=== PATIENT | female | born 1980 | race Caucasian/White ===

== ENCOUNTER 2017-05-24 14:21 | Emergency (ER) | payer MEDICARE, MEDICAID, SELFPAY ==
[2017-05-24 14:22] VITALS: BP 149/80; PULSE 91; RESP 16; TEMP 36.5; O2SAT 96; BMI 41.3
[2017-05-24 15:30] LABS: Absolute Lymphocyte Count 2.74 X10^3/ul (0.83-4.51); Absolute Neutrophil Count 6.6 X10^3/uL (2.0-7.7); Basophil# 0.01 X10^3/uL; Basophil% 0.1 % (0-1); Hemoglobin 14.6 g/dl (12.0-15.0); Lymphocyte # 2.74 X10^3/ul (4.0); Lymphocyte % 26.7 % (19-41); Mean Corp Hgb Conc 33.2 g/gl (32-36); Mean Corpuscular Hgb 29.9 pg (27.0-32.0); Mean Platelet Vol. 11.1 fl (6.2-12.0); Monocyte# 0.91 X10^3/uL; Monocyte% 8.9 % (0-10); Neutrophil % 64.2 % (47-70); POSITIVE COUNT NO; POSITIVE DIFFERENTIAL NO; POSITIVE MORPHOLOGY NO; Platelet Count 273 K/mm3 (150-450); RBC Distribution Width CV 13.5 % (11.6-14.6); RBC Distribution Width SD 43.9 fl (35.1-43.9); Red Blood Count 4.89 M/mm3 (4.2-5.4); White Blood Count 10.3 K/mm3 (4.4-11.0)
--- NOTE | 2017-05-24 15:32 | ED.VISSUMM ---
- ER Visit Summary Date of Service: 05/24/17 Chief Complaint: Mental health evaluation History of Present Illness: The patient is a 36 F presenting with depression and delusions. She states that she has been feeling depressed lately and also states that she may be with a miracle child. She then proceeds to tell me that her miracle child is a child of God and that she has been part of an immaculate conception. She denies suicidal thoughts or ideation. Denies drug use. Physical Examination: Vitals are within normal limits. Not in distress. Neck is supple. Heart tones are regular without murmur. Eyes are clear bilaterally. Abdomen is soft and nontender. No focal or lateralizing neuro findings. Neurologic exam is normal however on mental status examination, she appears to have no insight into her problem and has a fairly fixed delusion that she has been part of an immaculate conception and is near term with a miracle child. Test Results: Mental health labs are still pending Emergency Department Course and Treatment: Care is being turned over to the oncoming physician Treatment Plan: [] Disposition: [] Impression: [] This note was generated with Yogurt3D Engine dictation software. It may contain incorrect words, spelling, and punctuation that were not noted in review of the chart prior to signing ED Disposition - Plan for ED Patient: Chief Complaint: Mental Health Referrals: Kenneth Tan MD [Primary Care Provider] -
[2017-05-24 15:50] LABS: Anion Gap 11 (5-15); BUN 9 mg/dL (7-18); BUN/Creat Ratio 8.7 RATIO (10-20); Calcium,Total 8.5 mg/dL (8.5-10.1); Chloride 113 mmol/L (98-107); Creatinine, Serum 1.03 mg/dL (0.55-1.02); EST Glomerular Filtration Rate 65 mL/min (>60); Est Glom Filt Rate - Afr Amer 79 mL/min (>60); Estimated Creatinine Clearance 72.05 ml/min; Glucose 95 mg/dL (74-106); Potassium 3.3 mmol/L (3.5-5.1); Sodium Level 143 mmol/L (136-145)
[2017-05-24 16:20] LABS: Alcohol, Blood (Medical)-Serum < 3.0 mg/dL
[2017-05-24 16:30] LABS: Pregnancy, Serum, hCG Quali. NEGATIVE Negative (0-9 Nonpreg)
[2017-05-24 17:43] LABS: Amphetamine Urine VISTA NEGATIVE (<1000 ng/mL); Barbiturate Urine VISTA NEGATIVE (< 200 ng/mL); Benzodiazepine Urine VISTA NEGATIVE (< 200 ng/mL); Cocaine Urine VISTA NEGATIVE (< 300 ng/mL); Ecstacy Urine VISTA NEGATIVE (< 500 ng/mL); Methadone Urine VISTA NEGATIVE (< 300 ng/mL); PCP Urine VISTA NEGATIVE (< 25 ng/mL); THC Urine VISTA NEGATIVE (< 50 ng/mL); Vista UDS pH Range 7
--- NOTE | 2017-05-24 19:04 | NURSING ---
CRISELDA FROM [facility] CALLED BACK, HE IS AT [facility] AND WILL BE HERE WHEN DONE
[2017-05-24 20:02] VITALS: BP 97/56; PULSE 52; RESP 16; O2SAT 100
--- NOTE | 2017-05-24 21:13 | ED.DEP ---
ED Disposition - Plan for ED Patient: Chief Complaint: Mental Health Instructions: Understanding Delusional Disorders Referrals: Kenneth Tan MD [Primary Care Provider] -
[2017-05-24 21:26] VITALS: BP 110/64; PULSE 66; RESP 16; O2SAT 100
== END 2017-05-24 21:26 | disposition home or self-care (01) ==
PROVIDERS: Emergency Provider Emergency Medicine; Family Provider Family Medicine; PCP Family Medicine
DX: F22 Delusional disorders (principal); F29 Unspecified psychosis not due to a substance or known physiological condition; J45.909 Unspecified asthma, uncomplicated; R56.9 Unspecified convulsions; Z79.51 Long term (current) use of inhaled steroids; Z79.899 Other long term (current) drug therapy
CPT/HCPCS: 80048; 80307; 80320; 84703; 85025; 99283; G0480

== ENCOUNTER 2017-05-31 17:31 | Emergency (ER) | payer MEDICARE, MEDICAID, SELFPAY ==
[2017-05-31 17:32] VITALS: PULSE 90; RESP 16; TEMP 36.9; O2SAT 99; BMI 44.7
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
[2017-05-31 17:52] VITALS: BP 86/53
[2017-05-31 18:25] VITALS: BP 97/61
[2017-05-31 18:49] VITALS: BP 113/52; PULSE 70; RESP 16; O2SAT 100
== END 2017-05-31 18:57 | disposition home or self-care (01) ==
PROVIDERS: Emergency Provider Emergency Medicine; Family Provider Family Medicine; PCP Family Medicine
DX: G40.409 Other generalized epilepsy and epileptic syndromes, not intractable, without status epilepticus (principal); F79 Unspecified intellectual disabilities; E66.9 Obesity, unspecified; Z79.51 Long term (current) use of inhaled steroids; Z79.899 Other long term (current) drug therapy
CPT/HCPCS: 99285

== ENCOUNTER 2017-07-29 17:44 | Emergency (ER) | payer MEDICARE, MEDICAID, SELFPAY ==
[2017-07-29 17:45] VITALS: BP 119/74; PULSE 92; RESP 20; TEMP 36.6; O2SAT 99; BMI 39.8
--- NOTE | 2017-07-29 18:13 | RAD_ITS ---
STUDY: X-RAY - RIGHT TIBIA AND FIBULA REASON FOR EXAM: Female, 37 years old. Injury TECHNIQUE: 3 view(s) of the tibia and fibula were obtained. COMPARISON: None. FINDINGS: Normal visualized tibia. Normal visualized fibula. The soft tissue structures are unremarkable. RAD/Tibia & Fibula 2 Views IMPRESSION: Normal x-ray examination of the tibia and fibula. Electronically Signed: Graham Contreras DO at 20:10 EDT Tel [phone], Service support ,
[2017-07-29 19:03] LABS: Absolute Lymphocyte Count 1.16 X10^3/ul (0.83-4.51); Absolute Neutrophil Count 12.8 X10^3/uL (2.0-7.7); Hematocrit 44.6 % (37-47); Hemoglobin 14.7 g/dl (12.0-15.0); Lymphocyte # 1.16 X10^3/ul (4.0); Lymphocyte % 7.9 % (19-41); Mean Corpuscular Hgb 28.9 pg (27.0-32.0); Mean Corpuscular Volume 87.8 fL (81-99); Monocyte# 0.76 X10^3/uL; Monocyte% 5.1 % (0-10); Neutrophil # 12.82 X10^3/uL (2.7-7.7); Neutrophil % 86.9 % (47-70); POSITIVE COUNT NO; POSITIVE DIFFERENTIAL NO; POSITIVE MORPHOLOGY NO; Platelet Count 260 K/mm3 (150-450); RBC Distribution Width CV 13.2 % (11.6-14.6); RBC Distribution Width SD 42.6 fl (35.1-43.9); Red Blood Count 5.08 M/mm3 (4.2-5.4); White Blood Count 14.8 K/mm3 (4.4-11.0)
[2017-07-29 19:16] LABS: ALB/GLOB Ratio 0.9 RATIO (0.9-2.4); AST(SGOT) 8 U/L (15-37); Alanine Aminotransfer ALT/SGPT 11 U/L (13-56); Albumin, Serum 3.8 g/dL (3.2-5.0); Alkaline Phosphatase 130 U/L (45-117); Anion Gap 10 (5-15); BUN 10 mg/dL (7-18); BUN/Creat Ratio 9.2 RATIO (10-20); Calcium,Total 8.8 mg/dL (8.5-10.1); Chloride 113 mmol/L (98-107); Creatinine, Serum 1.09 mg/dL (0.55-1.02); EST Glomerular Filtration Rate 61 mL/min (>60); Est Glom Filt Rate - Afr Amer 73 mL/min (>60); Estimated Creatinine Clearance 64.82 ml/min; Globulin 4.1 g/dL (2.2-4.2); Glucose 98 mg/dL (74-106); Potassium 3.7 mmol/L (3.5-5.1); Protein, Total 7.9 g/dL (6.4-8.2); Sodium Level 142 mmol/L (136-145)
[2017-07-29] MEDS: Ketorolac 30 MG/ML Syringe IV (19:17)
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
[2017-07-29 19:22] LABS: Pregnancy, Serum, hCG Quali. NEGATIVE Negative (0-9 Nonpreg)
--- NOTE | 2017-07-29 19:25 | RAD_ITS ---
STUDY: X-RAY - RIGHT FEMUR REASON FOR STUDY: Female, 37 years old. Injury TECHNIQUE: Radiological exam, femur, minimum 2 views COMPARISON: None. FINDINGS: Normal visualized femur. Normal visualized soft tissue structure. RAD/Femur Min 2 Views IMPRESSION: Normal x-ray examination of the femur. Electronically Signed: Graham Contreras DO at 20:11 EDT Tel [phone], Service support ,
[2017-07-29 19:54] VITALS: BP 101/61; PULSE 58; RESP 18; O2SAT 100
[2017-07-29 20:04] LABS: Amphetamine Urine VISTA NEGATIVE (<1000 ng/mL); Barbiturate Urine VISTA NEGATIVE (< 200 ng/mL); Benzodiazepine Urine VISTA POSITIVE (< 200 ng/mL); Cocaine Urine VISTA NEGATIVE (< 300 ng/mL); Ecstacy Urine VISTA NEGATIVE (< 500 ng/mL); Methadone Urine VISTA NEGATIVE (< 300 ng/mL); PCP Urine VISTA NEGATIVE (< 25 ng/mL); THC Urine VISTA NEGATIVE (< 50 ng/mL); Vista UDS pH Range 6
--- NOTE | 2017-07-29 20:43 | EKG12_ITS ---
Test Reason : [facility] [place] : / mmHG Vent. Rate : 056 BPM Atrial Rate : 056 BPM P-R Int : 160 ms QRS Dur : 088 ms QT Int : 438 ms P-R-T Axes : 025 019 013 degrees QTc Int : 422 ms Sinus bradycardia Otherwise normal ECG Confirmed by ALBERT CUBA, MILLA ([id number]), primer expeditor and drier TAN CUNHA ([id number]) on 07/31/2017 11:47:53 AM Referred By: GREGORIA Confirmed By:MILLA PRICE MD
[2017-07-29 20:54] LABS: Bacteria 0 SEEN /hpf (None Seen); Mucous, Urine 0 SEEN /hpf (<or=2+); Red Blood Cells-Urine 0 SEEN /hpf (0-5)
[2017-07-29 20:59] LABS: Color, Urine Yellow (Yellow); Glucose, Dipstick Normal (Normal); Leukocyte Esterase-Dipstick 25 /ul (Negative); Nitrite-Dipstick Negative (Negative); Occult Blood-Urine Negative /ul (Negative); Protein-Dipstick 15 mg/dl (Negative); Specific Gravity, Urine 1.015 (1.002-1.030); Urine Bilirubin Dipstick Negative (Negative); Urine Clarity Sl. Cloudy (Clear); Urine Urobilinogen Normal (Normal)
[2017-07-29 21:03] LABS: Ketone-Dipstick 150 mg/dl (Negative)
[2017-07-29 21:07] LABS: Amorphous Sediment 1+; Squamous Epithelial Cells - UA 5-10 SEEN /hpf (5-10); White Blood Cells 0-5 SEEN /hpf (0-5)
--- NOTE | 2017-07-29 22:45 | NURSING ---
PT STATES SHE NEEDS TO USE THE BR AND PT DEMANDING SHE CANNOT WALK AND NEEDS A W/C. CONFIRMED NEG X-RAY FINDINGS WITH DR. KINNEY AND ENCOURAGED PT TO TAKE IT ON HER OWN TIME, SLOWLY. PT'S MOTHER AND BROTHER AT ENCOURAGING PT TO GET UP AND WALK AND PT REFUSING.
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
[2017-07-30 00:04] VITALS: BP 115/60; PULSE 78; RESP 18; O2SAT 100
== END 2017-07-30 00:05 | disposition home or self-care (01) ==
PROVIDERS: Emergency Provider Emergency Medicine; Family Provider Family Medicine; PCP Family Medicine
DX: R56.9 Unspecified convulsions (principal); M25.551 Pain in right hip; M25.561 Pain in right knee; F20.9 Schizophrenia, unspecified; Z79.899 Other long term (current) drug therapy
CPT/HCPCS: 73552; 73590; 80053; 80307; 80320; 81001; 84703; 85025; 93005; 96374; 99285; G0480

== ENCOUNTER 2017-08-10 18:58 | Emergency (ER) | payer MEDICARE, MEDICAID, SELFPAY ==
[2017-08-10 18:59] VITALS: BP 140/107; PULSE 92; RESP 24; TEMP 36.2; O2SAT 97; BMI 44.3
[2017-08-10 19:51] LABS: Absolute Lymphocyte Count 2.91 X10^3/ul (0.83-4.51); Absolute Neutrophil Count 5.7 X10^3/uL (2.0-7.7); Hematocrit 45.5 % (37-47); Hemoglobin 14.6 g/dl (12.0-15.0); Lymphocyte # 2.91 X10^3/ul (4.0); Mean Corp Hgb Conc 32.1 g/gl (32-36); Mean Corpuscular Hgb 28.9 pg (27.0-32.0); Mean Corpuscular Volume 90.1 fL (81-99); Mean Platelet Vol. 11.6 fl (6.2-12.0); Monocyte# 0.79 X10^3/uL; Monocyte% 8.4 % (0-10); Neutrophil # 5.68 X10^3/uL (2.7-7.7); Neutrophil % 60.5 % (47-70); Platelet Count 290 K/mm3 (150-450); RBC Distribution Width CV 13.8 % (11.6-14.6); Red Blood Count 5.05 M/mm3 (4.2-5.4); White Blood Count 9.4 K/mm3 (4.4-11.0)
[2017-08-10 19:59] LABS: Anion Gap 9 (5-15); BUN 8 mg/dL (7-18); BUN/Creat Ratio 6.3 RATIO (10-20); Calcium,Total 9.1 mg/dL (8.5-10.1); Chloride 110 mmol/L (98-107); Creatinine, Serum 1.26 mg/dL (0.55-1.02); EST Glomerular Filtration Rate 51 mL/min (>60); Est Glom Filt Rate - Afr Amer 62 mL/min (>60); Estimated Creatinine Clearance 49.29 ml/min; Glucose 68 mg/dL (74-106); Potassium 3.2 mmol/L (3.5-5.1); Sodium Level 140 mmol/L (136-145)
[2017-08-10] MEDS: Zonisamide 50 MG Capsule 400 MG PO (20:01)
[2017-08-10] MEDS: LORazepam 2 MG/ML Syringe 0.5 MG IV (20:01)
[2017-08-10] MEDS: 0.9% Normal Saline 1,000 ML 15 ML IV (20:01)
[2017-08-10] MEDS: Lacosamide 100 MG Tablet 200 MG PO (20:03)
[2017-08-10] MEDS: Topiramate 200 MG Tablet PO (20:03)
[2017-08-10 20:06] LABS: POSITIVE COUNT NO; POSITIVE DIFFERENTIAL NO; POSITIVE MORPHOLOGY NO
[2017-08-10 20:24] LABS: Pregnancy, Serum, hCG Quali. NEGATIVE Negative (0-9 Nonpreg)
--- NOTE | 2017-08-10 20:44 | ED.RN ---
CHOCOLATE MILK AND COOKIES GIVEN TO INCREASE BLOOD SUGAR.
--- NOTE | 2017-08-10 20:56 | ED.VISSUMM ---
- ER Visit Summary Date of Service: 08/10/17 Chief Complaint: Seizures History of Present Illness: The patient is a 37 F with a history of seizure disorder. Per mother the patient had a small seizure today they proceeded a big seizure. Mom states that she called EMS to transport the patient. Mom states the seizure lasted until EMS arrived to the hospital which is approximately 10 minutes. EMS note was reviewed. They note that she was postictal on their arrival but had not been actively seizing. Patient is currently on Vimpat, Topamax, and Zonegran for seizures. There is been no recent change in dosing. She follows with Dr. Ribeiro in [place]. Physical Examination: Vital signs are unremarkable. Patient sitting upright in bed no acute distress. She is alert and talkative. Head and neck examination is unremarkable. She has no tongue injury. Heart is regular rate and rhythm. Lung sounds are clear. Abdomen is soft and nontender. Patient has no focal neurologic deficits. Test Results: CBC is unremarkable. Chemistry studies revealed normal sodium. Her potassium is slightly low at 3.2. Her glucose is 68. Emergency Department Course and Treatment: Patient was given chocolate milk to raise her blood sugar. On arrival to the ED she was given 0.5 mill grams of IV Ativan while workup was undertaken. She was also given her evening dose of Vimpat, Topamax, and Zonegran. Patient has been able to ambulate in the ER without difficulty. She has back to her baseline. She will be discharged with her mother. Treatment Plan: [] Disposition: Discharge Impression: Seizure with history of seizure disorder This note was generated with SharesPost dictation software. It may contain incorrect words, spelling, and punctuation that were not noted in review of the chart prior to signing ED Disposition - Plan for ED Patient: Disposition: Home or Assisted Living Chief Complaint: Seizure Instructions: ED Seizure Recurrent Referrals: Ant Ribeiro MD [STAFF PHYSICIAN] - 1-2 Weeks Kenneth Tan MD [Primary Care Provider] -
--- NOTE | 2017-08-10 20:56 | ED.DEP ---
ED Disposition - Plan for ED Patient: Disposition: Home or Assisted Living Chief Complaint: Seizure Instructions: ED Seizure Recurrent Referrals: Kenneth Tan MD [Primary Care Provider] - Ant Ribeiro MD [STAFF PHYSICIAN] - 1-2 Weeks
[2017-08-10 21:14] VITALS: BP 114/67; PULSE 70; RESP 22; O2SAT 100
== END 2017-08-10 21:16 | disposition home or self-care (01) ==
PROVIDERS: Emergency Provider Emergency Medicine; Family Provider Family Medicine; PCP Family Medicine
DX: G40.909 Epilepsy, unspecified, not intractable, without status epilepticus (principal); E66.9 Obesity, unspecified; J45.909 Unspecified asthma, uncomplicated; F79 Unspecified intellectual disabilities; Z79.51 Long term (current) use of inhaled steroids; Z79.899 Other long term (current) drug therapy
CPT/HCPCS: 80048; 84703; 85025; 96374; 99285; J7030; A4216

== ENCOUNTER 2017-09-07 21:40 | Emergency (ER) | payer MEDICARE, MEDICAID, SELFPAY ==
[2017-09-07 21:40] VITALS: BP 120/67; PULSE 83; RESP 16; TEMP 36.9; O2SAT 97; BMI 47.2
--- NOTE | 2017-09-07 21:59 | ED.DCSUM_ITS ---
- ER Visit Summary Date of Service: 09/07/17 Chief Complaint: [] Mechanical fall in the bathroom History of Present Illness: The patient is a 37 F patient had a mechanical fall. She went to sit back on her chair in the bathtub and it was too far back. She slipped and fell. She is having some discomfort in the middle of her back. Is mild. Her brother said he thinks he she may have hit his hit her head. Happened several hours ago. She did not lose consciousness. There is no luther or abrasions or hematomas. He stated he wanted to make sure she does not have a concussion. She does have a history of mild MR. She denies any complaints at this time. She is on multiple seizure medicines. She did not have seizure. Physical Examination: Vital signs reviewed General: Well-nourished well-developed Head: Normocephalic atraumatic Eyes: Pupils equal round and reactive to light extraocular movements intact ENT: TMs clear no hemotympanum no trauma Neck: Nontender full range of motion Cardiovascular: Regular rate rhythm no murmurs normal S1-S2 Respiratory: No distress clear to auscultation bilaterally chest nontender Abdomen: Soft nontender nondistended normal bowel sounds no masses Back: Nontender no CVA tenderness Extremities: Nontender active range of motion ?4 extremities no trauma Skin: Normal color no trauma Neuro alert oriented cranial nerves II through XII intact normal strength sensation reflexes Test Results: [] Emergency Department Course and Treatment: [] Patient's resting comfortably. Her head exam neck exam normal. Her back exam is normal. I do not think she has an acute fracture. I do not think she has a concussion. She is awake alert responding appropriately. Is given Tylenol. She will rest and I do not feel she needs any further workup. Treatment Plan: [] Disposition: [] Impression: [] Mechanical fall in the bathroom Back contusion This note was generated with Bluechilli dictation software. It may contain incorrect words, spelling, and punctuation that were not noted in review of the chart prior to signing ED Disposition - Plan for ED Patient: Chief Complaint: Fall Referrals: Kenneth Tan MD [Primary Care Provider] -
--- NOTE | 2017-09-07 21:59 | ED.DEP ---
ED Disposition - Plan for ED Patient: Disposition: Home or Assisted Living Chief Complaint: Fall Instructions: ED Mechanical Fall Referrals: Kenneth Tan MD [Primary Care Provider] -
[2017-09-07] MEDS: Acetaminophen 325 MG Tablet 650 MG PO (22:04)
[2017-09-07 22:22] VITALS: PULSE 72; RESP 14; O2SAT 98
== END 2017-09-07 22:22 | disposition home or self-care (01) ==
LOC: ED 22:13
PROVIDERS: Emergency Provider Emergency Medicine; Family Provider Family Medicine; PCP Family Medicine
DX: S20.229A Contusion of unspecified back wall of thorax, initial encounter (principal); R56.9 Unspecified convulsions; F79 Unspecified intellectual disabilities; Z79.899 Other long term (current) drug therapy; W18.2XXA Fall in (into) shower or empty bathtub, initial encounter; Y93.E1 Activity, personal bathing and showering; Y92.002 Bathroom of unspecified non-institutional (private) residence as the place of occurrence of the external cause; Y99.8 Other external cause status
CPT/HCPCS: 99282

== ENCOUNTER 2017-09-08 15:00 | Emergency (ER) | payer MEDICARE, MEDICAID, SELFPAY ==
[2017-09-08 15:05] VITALS: BP 132/78; PULSE 106; RESP 15; TEMP 36.4; O2SAT 98; BMI 35.7
--- NOTE | 2017-09-08 15:31 | CT_ITS ---
STUDY: CT BRAIN WITHOUT CONTRAST REASON FOR EXAM: Female, 37 years old. Confusion status post fall RADIATION DOSAGE (If Supplied By Facility): CTDIvol = ( 60.81 ) mGy, DLP = ( 998.67 ) mGycm TECHNIQUE: Transaxial CT imaging of the brain was performed without administration of intravenous contrast material. Individualized dose optimization techniques were used for this CT. COMPARISON: June 19, 2016 CT scan head FINDINGS: Normal soft tissue structures. Normal calvarium. Normal size ventricles and extra-axial spaces for the patient's age. Normal white matter tracts of the cerebral hemispheres. Normal basal ganglia and thalami.Normal brainstem. Normal cerebellum. There is no intracranial hemorrhage. There are no findings of an acute ischemic infarction. Normal visualized paranasal sinuses. CT/Brain/Head without Contrast IMPRESSION: No evidence of acute hemorrhage infarct or edema. No visualized fracture. Electronically Signed: Benita Stearns MD at 16:26 EDT Tel , Service support ,
[2017-09-08] MEDS: 0.9% Normal Saline 1,000 ML 150 ML IV (15:43)
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
[2017-09-08 16:01] LABS: Absolute Lymphocyte Count 2.23 X10^3/ul (0.83-4.51); Absolute Neutrophil Count 8.3 X10^3/uL (2.0-7.7); Basophil# 0.01 X10^3/uL; Basophil% 0.1 % (0-1); Hemoglobin 14.5 g/dl (12.0-15.0); Lymphocyte # 2.23 X10^3/ul (4.0); Lymphocyte % 19.2 % (19-41); Mean Corpuscular Hgb 29.6 pg (27.0-32.0); Mean Corpuscular Volume 89.8 fL (81-99); Mean Platelet Vol. 10.8 fl (6.2-12.0); Monocyte# 1.03 X10^3/uL; Monocyte% 8.9 % (0-10); Neutrophil # 8.33 X10^3/uL (2.7-7.7); Neutrophil % 71.5 % (47-70); Platelet Count 288 K/mm3 (150-450); RBC Distribution Width CV 14.4 % (11.6-14.6); White Blood Count 11.6 K/mm3 (4.4-11.0)
[2017-09-08 16:04] LABS: Anion Gap 10 (5-15); BUN 8 mg/dL (7-18); BUN/Creat Ratio 8.4 RATIO (10-20); Calcium,Total 9.1 mg/dL (8.5-10.1); Chloride 115 mmol/L (98-107); Creatinine, Serum 0.95 mg/dL (0.55-1.02); EST Glomerular Filtration Rate 71 mL/min (>60); Est Glom Filt Rate - Afr Amer 86 mL/min (>60); Estimated Creatinine Clearance 77.38 ml/min; Glucose 90 mg/dL (74-106); Potassium 3.8 mmol/L (3.5-5.1); Sodium Level 143 mmol/L (136-145)
[2017-09-08 16:09] LABS: POSITIVE COUNT NO; POSITIVE DIFFERENTIAL NO; POSITIVE MORPHOLOGY NO
[2017-09-08 16:15] LABS: Pregnancy, Serum, hCG Quali. NEGATIVE Negative (0-9 Nonpreg)
[2017-09-08 16:20] LABS: Alcohol, Blood (Medical)-Serum < 3.0 mg/dL
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
[2017-09-08 17:32] LABS: Bacteria 0 SEEN /hpf (None Seen); Mucous, Urine 0 SEEN /hpf (<or=2+); Red Blood Cells-Urine 0 SEEN /hpf (0-5); White Blood Cells 0 SEEN /hpf (0-5)
[2017-09-08 17:37] LABS: Color, Urine Yellow (Yellow); Glucose, Dipstick Normal (Normal); Ketone-Dipstick 15 mg/dl (Negative); Leukocyte Esterase-Dipstick 100 /ul (Negative); Nitrite-Dipstick Negative (Negative); Occult Blood-Urine 10 /ul (Negative); Protein-Dipstick Negative (Negative); Urine Bilirubin Dipstick Negative (Negative); Urine Clarity Clear (Clear); Urine Urobilinogen Normal (Normal); Urine pH 6.5 (5.0 - 8.0)
[2017-09-08 17:47] LABS: Squamous Epithelial Cells - UA 0-5 SEEN /hpf (5-10)
[2017-09-08 17:51] LABS: Amphetamine Urine VISTA NEGATIVE (<1000 ng/mL); Barbiturate Urine VISTA NEGATIVE (< 200 ng/mL); Benzodiazepine Urine VISTA POSITIVE (< 200 ng/mL); Cocaine Urine VISTA NEGATIVE (< 300 ng/mL); Ecstacy Urine VISTA NEGATIVE (< 500 ng/mL); Methadone Urine VISTA NEGATIVE (< 300 ng/mL); PCP Urine VISTA NEGATIVE (< 25 ng/mL); THC Urine VISTA NEGATIVE (< 50 ng/mL); Vista UDS pH Range 6
--- NOTE | 2017-09-08 18:10 | NURSING ---
TALKED TO [facility] THEY ARE GOING TO HAVE CELI CALL DR BILLY ABOUT PATIENT
--- NOTE | 2017-09-08 19:19 | ED.RN ---
CALLED [facility] TO CHECK THE STATUS OF THEIR ARRIVAL, CELI IS AT ANOTHER HOSPITAL AND AN ETA IS NOT AVAILABLE
[2017-09-08 19:36] VITALS: BP 125/83; PULSE 80; RESP 16; O2SAT 100
[2017-09-08 20:34] VITALS: PULSE 57; RESP 16; O2SAT 99
[2017-09-08] MEDS: Zonisamide 50 MG Capsule 200 MG PO (20:34)
[2017-09-08] MEDS: Topiramate 200 MG Tablet PO (20:34)
[2017-09-08] MEDS: Lacosamide 100 MG Tablet 400 MG PO (20:34)
--- NOTE | 2017-09-08 21:02 | NURSING ---
PT REPEATED TO SAY THAT THEY WERE COMING OUT OF THE CORD, AND WOULD NOT SPECIFY WHO THEY ARE. AND KEPT POINTING TO THE CALL BUTTON. I HAVE TRIED TO GET THE PT TO TAKE HER NIGHT TIME MEDICATIONS AND OLEG HARRY, PT IS NOT TAKING THEM. EVEN INSTRUCTED ON HOW TO TAKE THE MEDICATIONS. PT KEEPS PUTTING THEM IN HER MOUTH AND SPITTING THEM BACK INTO THE CUP.
--- NOTE | 2017-09-08 21:32 | ED.RN ---
PT REFUSED TO TAKE TWO ROUND TABLETS. PT'S BROTHER CALLED AND REPORTED THAT PT HAD SEIZURE 3 DAYS AGO FIVE OF THEM BACK TO BACK, IT USUALLY TAKES A WEEK BEFORE SHE GETS BACK TO HERSELF PT IS CURRENTLY HAVING VISUAL HALLUCINATIONS AND PT'S BROTHER, CAMPOS LAWS, REPORTED PT HAS HALLUCINATIONS AFTER WATCHING TV PROGRAMS.
--- NOTE | 2017-09-08 21:34 | ED.RN ---
PT'S BROTHER, CAMPOS, REPORTED THAT PT DOES DROP SOME OF HER SEIZURE MEDICATIONS OVER TIME AND THAT MAYBE WHY SHE HAS A SEIZURE.
--- NOTE | 2017-09-08 21:39 | ED.RN ---
CHIPPING MACHINE OPERATOR MICKIE HERE TO SEE PT.
[2017-09-08 22:51] VITALS: BP 105/69; PULSE 52; RESP 16; O2SAT 100
[2017-09-09] VITALS (7 sets, daily range): BP systolic 106–111; BP diastolic 60–83; PULSE 54–72; RESP 14–16; TEMP 36.4; O2SAT 97
--- NOTE | 2017-09-09 00:34 | EKG12_ITS ---
Test Reason : [facility] [place] Blood Pressure : / mmHG Vent. Rate : 075 BPM Atrial Rate : 075 BPM P-R Int : 164 ms QRS Dur : 082 ms QT Int : 394 ms P-R-T Axes : 031 000 000 degrees QTc Int : 439 ms Normal sinus rhythm with sinus arrhythmia Low voltage QRS (precordial leads) Nonspecific T wave abnormality Confirmed by MARIAH CUBA, ANGY ([id number]), editor newspaper TAN CUNHA ([id number]) on 09/11/2017 10:36:01 AM Referred By: CHUNG Confirmed By:ANGY LEMUS MD
[2017-09-09 01:45] LABS: AST(SGOT) 9 U/L (15-37); Alanine Aminotransfer ALT/SGPT 10 U/L (13-56); Albumin, Serum 3.9 g/dL (3.2-5.0); Alkaline Phosphatase 117 U/L (45-117); Bilirubin, Direct 0.09 mg/dL (0.00-0.30); Lipase 88 U/L (73-393); Protein, Total 7.9 g/dL (6.4-8.2)
--- NOTE | 2017-09-09 05:06 | EKG12_ITS ---
Test Reason : [facility] Blood Pressure : / mmHG Vent. Rate : 069 BPM Atrial Rate : 069 BPM P-R Int : 128 ms QRS Dur : 082 ms QT Int : 408 ms P-R-T Axes : 003 001 -01 degrees QTc Int : 437 ms Normal sinus rhythm with sinus arrhythmia Nonspecific T wave abnormality Confirmed by MARIAH CUBA, ANGY ([id number]), design editor TAN CUNHA ([id number]) on 09/11/2017 10:36:17 AM Referred By: CHUNG Confirmed By:ANGY LEMUS MD
[2017-09-09] MEDS: Acetaminophen 500 MG Tablet 1000 MG PO (05:27)
--- NOTE | 2017-09-09 05:32 | ED.RN ---
IN PT'S ROOM TO TAKE VITAL SIGNS, PT STATES SHE WAS HAVING CHEST DISCOMFORT. NOTIFIED MD, NEW ORDERS GIVEN.
--- NOTE | 2017-09-09 05:39 | ED.RN ---
PT WAS GIVEN 1,000MG OF TYLENOL, PT TOOK 500MG BUT NOT THE OTHER PILL.
[2017-09-09] MEDS: Lacosamide 100 MG Tablet 400 MG PO (06:28)
[2017-09-09] MEDS: Topiramate 200 MG Tablet 400 MG PO (06:29)
[2017-09-09] MEDS: Zonisamide 50 MG Capsule 200 MG PO (06:32)
== END 2017-09-09 12:06 ==
PROVIDERS: Emergency Medicine; Emergency Provider Emergency Medicine; Family Provider Family Medicine; PCP Family Medicine
DX: F29 Unspecified psychosis not due to a substance or known physiological condition (principal); G40.909 Epilepsy, unspecified, not intractable, without status epilepticus; F79 Unspecified intellectual disabilities; M25.571 Pain in right ankle and joints of right foot; M25.561 Pain in right knee; Z79.899 Other long term (current) drug therapy
CPT/HCPCS: 70450; 73562; 73610; 80048; 80076; 80307; 80320; 81001; 83690; 84703; 85025; 93005; 96360; 96361; 99285; J7030; G0480

== ENCOUNTER 2017-10-06 11:48 | Emergency (ER) | payer MEDICARE, SELFPAY ==
[2017-10-06 11:49] VITALS: BP 91/68; PULSE 80; RESP 16; TEMP 37.2; O2SAT 99; BMI 38.9
--- NOTE | 2017-10-06 12:18 | CT_ITS ---
STUDY: CT BRAIN WITHOUT CONTRAST REASON FOR EXAM: Female, 37 years old. History of seizure. Head injury. RADIATION DOSAGE (If Supplied By Facility): CTDIvol = ( 44.99 ) mGy, DLP = ( 939.81 ) mGycm TECHNIQUE: Transaxial CT imaging of the brain was performed without administration of intravenous contrast material. Individualized dose optimization techniques were used for this CT. COMPARISON: Comparison is made with prior study dated September 08, 2017. FINDINGS: Normal soft tissue structures. Normal calvarium. Normal size ventricles and extra-axial spaces for the patient's age. Normal white matter tracts of the cerebral hemispheres. Normal basal ganglia and thalami. Normal brainstem. Normal cerebellum. There is no intracranial hemorrhage. There are no findings of an acute ischemic infarction. Normal visualized paranasal sinuses. CT/Brain/Head without Contrast IMPRESSION: Normal unenhanced CT scan of the brain. Electronically Signed: Cj Damon MD at 13:27 EDT Tel [phone], Service support ,
[2017-10-06] MEDS: Acetaminophen 500 MG Tablet 1000 MG PO (12:43)
--- NOTE | 2017-10-06 13:44 | ED.VISSUMM ---
- ER Visit Summary Date of Service: 10/06/17 Chief Complaint: Seizure History of Present Illness: The patient is a [address] Ribeiro and Dr. Tan. Mother reports that last night approximately 10 PM she had a seizure. She fell and hit her head has a bruise around her left eye. They went to urgent care and there was concern that she had an intracranial hemorrhage so she was sent to the emergency department for a CT. Patient has not had any seizure activity today. Her last seizure was last month. Mother reports the patient has had a mild cough. No fever or difficulty breathing. The patient is not a reliable informant. Physical Examination: Vitals: Stable. Afebrile. General: Well-nourished and well-developed. Head: Normocephalic contusion to the left maxilla just below her eye. Neck: Supple, no lymphadenopathy. No JVD. Nontender. Cardiovascular: Regular rate and rhythm. No murmurs. Respiratory: No respiratory distress. Clear to auscultation bilaterally. Abdominal: Soft, nontender, nondistended, normal bowel sounds. No guarding, rebound, or peritoneal signs. Back: Nontender. Extremities: Nontender, no edema. Skin: Normal color, no rash. Neurologic: Alert and oriented ?3. Cranial nerves II through XII are intact. Normal strength and sensation. Psych: Normal affect. Test Results: CT head is normal. Emergency Department Course and Treatment: Patient was treated with Tylenol for pain. Treatment Plan: Patient will be discharged instructions to follow-up with her neurologist as soon as possible for further treatment of her seizures. Return to the emergency department for any worsening symptoms. Disposition: To home in improved and stable condition. Impression: 1. Recurrent seizure. 2. Facial contusion. This note was generated with [employer] software. It may contain incorrect words, spelling, and punctuation that were not noted in review of the chart prior to signing ED Disposition - Plan for ED Patient: Chief Complaint: Seizure Instructions: ED Seizure Recurrent Referrals: Ant Ribeiro MD [STAFF PHYSICIAN] - As soon as possible
[2017-10-06 13:49] VITALS: PULSE 68; RESP 18; O2SAT 100
== END 2017-10-06 13:50 | disposition home or self-care (01) ==
LOC: ED 13:24
PROVIDERS: Emergency Provider Emergency Medicine; Family Provider Family Medicine; PCP Family Medicine
DX: E56.9 Vitamin deficiency, unspecified (principal); S00.12XA Contusion of left eyelid and periocular area, initial encounter; J45.909 Unspecified asthma, uncomplicated; K21.9 Gastro-esophageal reflux disease without esophagitis; Z79.51 Long term (current) use of inhaled steroids; Z79.899 Other long term (current) drug therapy; W18.30XA Fall on same level, unspecified, initial encounter; Y93.89 Activity, other specified; Y92.009 Unspecified place in unspecified non-institutional (private) residence as the place of occurrence of the external cause; Y99.8 Other external cause status
CPT/HCPCS: 70450; 99284

== ENCOUNTER 2017-11-12 15:34 | Emergency (ER) | payer MEDICARE, MEDICAID, SELFPAY ==
[2017-11-12 15:43] VITALS: BP 100/63; PULSE 76; RESP 14; TEMP 36.4; O2SAT 100; BMI 37.9
--- NOTE | 2017-11-12 15:49 | ED.VISSUMM ---
- ER Visit Summary Date of Service: 11/12/17 Chief Complaint: Seizure History of Present Illness: The patient is a 37 F who is at the PCP office for a routine physical when she had a seizure. Started out as a absence seizure and then went to a tonic-clonic. It lasted about 1 minute. Patient has a history of seizures she is currently on Vimpat, Topamax and zonisamide. Family states that she was switched from Abilify orally to Abilify injections. He thinks this may have been causing an increase in seizures. She sees Dr. Ribeiro for her neurology issues Physical Examination: Vital signs reviewed. HEENT exam unremarkable. Heart is regular rate and rhythm without murmurs. Lungs are clear to auscultation. Abdomen is soft and nontender. Extremities reveal no edema. Skin exam normal. Neurologic exam normal. Test Results: BMP normal except for a chloride of 114 Emergency Department Course and Treatment: Patient was given a half a milligram of Ativan here to prevent seizures. BMP normal. No anion gap elevation. Patient will be discharged to follow-up with her neurologist Treatment Plan: [] Disposition: Discharge Impression: Breakthrough seizure This note was generated with [employer] dictation software. It may contain incorrect words, spelling, and punctuation that were not noted in review of the chart prior to signing ED Disposition - Plan for ED Patient: Chief Complaint: Seizure Referrals: Kenneth Tan MD [Primary Care Provider] -
[2017-11-12] MEDS: LORazepam 2 MG/ML Syringe 0.5 MG IV (16:08)
[2017-11-12 17:31] LABS: Anion Gap 8 (5-15); BUN 11 mg/dL (7-18); BUN/Creat Ratio 11.1 RATIO (10-20); Calcium,Total 8.2 mg/dL (8.5-10.1); Chloride 114 mmol/L (98-107); Creatinine, Serum 0.99 mg/dL (0.55-1.02); EST Glomerular Filtration Rate 68 mL/min (>60); Est Glom Filt Rate - Afr Amer 82 mL/min (>60); Estimated Creatinine Clearance 77.13 ml/min; Glucose 80 mg/dL (74-106); Potassium 3.9 mmol/L (3.5-5.1); Sodium Level 143 mmol/L (136-145)
--- NOTE | 2017-11-12 18:03 | ED.DEP ---
ED Disposition - Plan for ED Patient: Disposition: Home or Assisted Living Chief Complaint: Seizure Instructions: ED Seizure Recurrent Referrals: Kenneth Tan MD [Primary Care Provider] -
[2017-11-12 18:17] VITALS: BP 121/76; PULSE 50; RESP 18; O2SAT 100
== END 2017-11-12 18:18 | disposition home or self-care (01) ==
PROVIDERS: Emergency Provider Emergency Medicine; Family Provider Family Medicine; PCP Family Medicine
DX: G40.409 Other generalized epilepsy and epileptic syndromes, not intractable, without status epilepticus (principal); K21.9 Gastro-esophageal reflux disease without esophagitis; Z79.51 Long term (current) use of inhaled steroids; Z79.899 Other long term (current) drug therapy
CPT/HCPCS: 80048; 96374; 99284; A4216

== ENCOUNTER 2017-11-20 13:45 | Emergency (ER) | payer MEDICARE, MEDICAID, SELFPAY ==
[2017-11-20 13:46] VITALS: BP 108/64; PULSE 90; PULSE 98; RESP 14; TEMP 37.6; O2SAT 96; O2SAT 98; BMI 39.0
--- NOTE | 2017-11-20 13:58 | CT_ITS ---
STUDY: CT CERVICAL SPINE WITHOUT CONTRAST REASON FOR EXAM: Female, 37 years old. Seizure following fall. RADIATION DOSAGE (If Supplied By Facility): CTDIvol = ( 28 ) mGy, DLP = ( 588 ) mGycm TECHNIQUE: High resolution transaxial imaging was performed without contrast material. Sagittal and coronal images were reconstructed. Individualized dose optimization techniques were used for this CT. COMPARISON: February 19, 2017 FINDINGS: Normal craniovertebral junction. Normal anterior atlantoaxial articulation. Normal odontoid process. There is straightening of the normal cervical lordosis. There is no fracture seen. Normal vertebral bodies and posterior osseous elements. C2-3: Normal endplates. Normal disc height and morphology. Normal central canal and intervertebral neuroforamina. C3-4: Normal endplates. Normal disc height and morphology. Normal central canal and intervertebral neuroforamina. C4-5: Mild spurring toward the right. Normal disc height and morphology. Normal central canal and intervertebral neuroforamina. C5-6: Normal endplates. Normal disc height and morphology. Normal central canal and intervertebral neuroforamina. C6-7: Normal endplates. Normal disc height and morphology. Normal central canal and intervertebral neuroforamina. C7-T1: Normal endplates. Normal disc height and morphology. Normal central canal and intervertebral neuroforamina. Normal visualized soft tissue structures. CT/Spine Cervical without Contras IMPRESSION: No fracture. Disc spaces are well preserved. Mild spurring. Electronically Signed: Carlos Vega MD at 14:50 EDT , Service support ,
--- NOTE | 2017-11-20 14:09 | CT_ITS ---
STUDY: CT BRAIN WITHOUT CONTRAST REASON FOR EXAM: Female, 37 years old. Seizure after fall RADIATION DOSAGE (If Supplied By Facility): CTDIvol = ( 44.99 ) mGy, DLP = ( 829.85 ) mGycm TECHNIQUE: Transaxial CT imaging of the brain was performed without administration of intravenous contrast material. Individualized dose optimization techniques were used for this CT. COMPARISON: October 06, 2017. FINDINGS: Normal soft tissue structures. Normal calvarium. Normal size ventricles and extra-axial spaces for the patient's age. Normal white matter tracts of the cerebral hemispheres. Normal basal ganglia and thalami. Normal brainstem. Normal cerebellum. There is no intracranial hemorrhage. There are no findings of an acute ischemic infarction. Normal visualized paranasal sinuses. CT/Brain/Head without Contrast IMPRESSION: Normal unenhanced CT scan of the brain. Electronically Signed: Carlos Vega MD at 14:47 EDT , Service support ,
--- NOTE | 2017-11-20 15:35 | ED.VISSUMM ---
- ER Visit Summary Date of Service: 11/20/17 Chief Complaint: Fall History of Present Illness: The patient is a 37 F with a mechanical fall prior to arrival, she has a history disorder, after she had a head she sustained a seizure she is now postictal but improving rapidly. No other injury. Physical Examination: She is backboarded but not C-collared but she is immobilized a c-collar was placed in the emergency department. She is morbidly obese she has clear lungs she has soft abdomen she has no other signs of injury there is a contusion over the posterior scalp there is no C-spine tenderness. Emergency Department Course and Treatment: CT of the C-spine and head are unremarkable she is now back to baseline she will be discharged with reassurance to follow-up with PCP and neurologist, she is on 4 different antiseizure medication she is taking them she still has breakthrough seizures and will be managed outpatients. She is in the care of her mother. Discharge stable condition Impression: [ Concussion with loss consciousness Seizure with seizure disorder] This note was generated with [employer] dictation software. It may contain incorrect words, spelling, and punctuation that were not noted in review of the chart prior to signing ED Disposition - Plan for ED Patient: Disposition: Home or Assisted Living Chief Complaint: Fall Instructions: ED Mechanical Fall Referrals: Kenneth Tan MD [Primary Care Provider] - 3-5 Days
[2017-11-20 15:53] VITALS: PULSE 86; RESP 16; O2SAT 98
== END 2017-11-20 15:54 | disposition home or self-care (01) ==
PROVIDERS: Emergency Provider Emergency Medicine; Family Provider Family Medicine; PCP Family Medicine
DX: S06.0X9A Concussion with loss of consciousness of unspecified duration, initial encounter (principal); G40.909 Epilepsy, unspecified, not intractable, without status epilepticus; E66.01 Morbid (severe) obesity due to excess calories; J45.909 Unspecified asthma, uncomplicated; Z79.51 Long term (current) use of inhaled steroids; Z79.899 Other long term (current) drug therapy; W18.30XA Fall on same level, unspecified, initial encounter; Y93.89 Activity, other specified; Y92.89 Other specified places as the place of occurrence of the external cause; Y99.8 Other external cause status
CPT/HCPCS: 70450; 72125; 99284; J7030

== ENCOUNTER 2018-12-16 08:40 | Emergency (ER) | payer MEDICARE, SELFPAY ==
[2018-12-16 08:40] VITALS: BMI 41.3
[2018-12-16 08:41] VITALS: BP 117/88; PULSE 100; RESP 18; TEMP 36.3; O2SAT 98; BMI 39.1
--- NOTE | 2018-12-16 08:59 | RAD_ITS ---
STUDY: X-RAY - RIGHT KNEE REASON FOR EXAM: Female, 38 years old. History of arthritis. TECHNIQUE: 4 view(s) of the knee. COMPARISON: Comparison is made with prior examination dated September 08, 2017. FINDINGS: Normal visualized distal femur. Normal visualized proximal tibia and fibula. Normal proximal tibiofibular articulation. Normal medial femorotibial compartment. Normal lateral femorotibial compartment. Normal patellofemoral articulation. The soft tissue structures are unremarkable. RAD/Knee 4 or More Views IMPRESSION: Normal x-ray examination of the knee. Electronically Signed: Cj Damon, at 9:30 EDT , Service support ,
--- NOTE | 2018-12-16 09:05 | RAD_ITS ---
STUDY: X-RAY CHEST REASON FOR EXAM: Female, 38 years old. Cough. TECHNIQUE: PA and lateral views of the chest. COMPARISON: Comparison is made with prior examination dated November 12, 2016. FINDINGS: The lungs are clear and expanded. Scattered calcified granulomas. There is no demonstrated pleural abnormality. Normal size heart. Normal mediastinum and carly. Normal visualized pulmonary arteries. Normal visualized aortic arch and descending thoracic aorta. Normal visualized thoracic spine. Normal visualized ribs, clavicles, and shoulders. There is no demonstrated abnormality of the visualized soft tissue structures of the upper abdomen. RAD/Chest PA and Lateral IMPRESSION: Normal x-ray examination of the chest. Electronically Signed: Cj Damon, at 9:31 EDT , Service support ,
--- NOTE | 2018-12-16 09:06 | ED.VIS.GEN ---
History of Present Illness Chief Complaint: Cough Informant: Patient Onset: Days Context: Gradual Onset Timing: Intermittent Current Severity: Moderate Maximum Severity: Moderate Narrative: The patient presents to the emergency department with multiple complaints. States over the past 10 days, she is had some mild nasal drainage, sneezing, and cough. She does note that she had fever. The patient does have history of asthma. She is been using her inhaler with some improvement. She also had pain in her right knee. She states she had this for years but it seems like it is getting worse. She states when she is going up and down stairs, the pain is worse. She has not taken anything for it. She denies chest pain. She denies leg swelling. She has no history of pulmonary embolus. Prior similar symptoms: No Recent Illness/Hospitalization: No Past Medical History - Allergies and Home Meds Allergies/Adverse Reactions: Allergies azithromycin [From Zithromax Z-Johnny] Allergy (Verified 12/16/18 08:43) Other cephalexin Allergy (Verified 12/16/18 08:43) Unknown doxycycline Allergy (Verified 12/16/18 08:43) Nausea guaifenesin [From Mucinex] Allergy (Verified 12/16/18 08:43) Other latex Allergy (Verified 12/16/18 08:43) Rash oseltamivir [From Tamiflu] Allergy (Verified 12/16/18 08:43) Unknown risperidone [From Risperdal] Allergy (Verified 12/16/18 08:43) Other strawberry Allergy (Verified 12/16/18 08:43) Hives topiramate Allergy (Verified 12/16/18 08:43) Unknown valdecoxib [From Bextra] Allergy (Verified 12/16/18 08:43) Rash Primary Care Physician: Kenneth Tan MD [Primary Care Provider] - Prior records reviewed: Yes Past Medical History: - - seizures, ashtma Lives: With Family Smoking Status: Never smoker Alcohol: None Review of Systems General: Denies: Chills, Fever, Sweats Eyes: Denies: Visual changes - bilaterally, Diplopia ENT: Reports: Rhinorrhea. Denies: Sore throat Cardiovascular: Denies: Chest pain, Palpitations Respiratory: Reports: Cough, Sputum. Denies: Dyspnea, Dyspnea on exertion Gastrointestinal: Denies: Abdominal pain, Nausea, Vomiting, Diarrhea, Melena, Hematochezia Genitourinary: Denies: Dysuria, Hematuria, Frequency Musculoskeletal: Reports: Arthralgias. Denies: Back pain, Extremity Pain Skin: Denies: Rash, Wounds Neurological: Denies: Headache, Weakness, Numbness Psych: Denies: Depression Endocrine: Denies: Polyuria Physical Exam Vital Signs/Narrative: Vital Signs Temp Pulse Resp BP Pulse Ox 12/16/18 08:41 97.4 F L 100 18 117/88 H 98 Inital Vital Signs reviewed: Yes General: Well nourished, Well developed, No Acute Distress Head: Normocephalic, Atraumatic Eyes: Perrl, EOMI ENT: Moist mucous membranes, No rhinorrhea Neck: Supple, Nontender Cardiovascular: Regular rate, Regular rhythm, No murmurs Respiratory: No distress, Chest nontender, Wheezing - clears with cough Abdomen: Soft, Nontender, Nondistended, Normal bowel sounds Back: Nontender, Normal Inspection Extremities: No edema, Tenderness - mild tenderness along joint line right knee, no effusion, no erythema, no laxity Skin: Normal color, No rash Neurological: Alert, Oriented x3, Cranial nerves II-XII grossly intact, Normal Strength, Normal Sensation Psychological: Normal affect, Normal Mood Diagnostic/Tx/Re-eval Chest X-Ray - ED: 2 View, Read by ED Physician, Read by Radiologist, Normal, Heart, Lungs Clinical Impression(s) from Imaging Studies Knee X-Ray 12/16/18 08:59 IMPRESSION: Normal x-ray examination of the knee. Electronically Signed: Cj Damon, at 9:30 EDT , Service support , Chest X-Ray 12/16/18 09:05 IMPRESSION: Normal x-ray examination of the chest. Electronically Signed: Cj Damon, at 9:31 EDT , Service support , - Medical Decision Making The patient presents with multiple symptoms. She had cough and some scant wheezing. She has not had fever chills. Chest x-ray was obtained was unremarkable. My suspicion is that this is likely viral. I do not see a clear indication for antibiotics. The patient had x-rays of her knee. This does seem more consistent with chronic arthritis. I am to place patient on a short prednisone burst. She is comfortable with this plan of care. She will be discharged home. Impression 1. Viral URI with bronchospasm 2. Right knee arthralgia ED Disposition - Plan for ED Patient: Instructions: BRONCHITIS, No Antibiotic (Adult) Prescriptions: Prednisone [Deltasone] 40 mg PO DAILY #10 tab Prescription Printed Benzonatate [Tessalon Perle] 200 mg PO TID PRN PRN #20 cap PRN Reason: Cough Prescription Printed Referrals: Kenneth Tan MD [Primary Care Provider] -
== END 2018-12-16 10:25 | disposition home or self-care (01) ==
LOC: ED 09:26
PROVIDERS: Emergency Provider Emergency Medicine; Family Provider Family Medicine; PCP Family Medicine
DX: J06.9 Acute upper respiratory infection, unspecified (principal); J45.909 Unspecified asthma, uncomplicated; M25.561 Pain in right knee; R56.9 Unspecified convulsions; Z79.51 Long term (current) use of inhaled steroids; Z79.899 Other long term (current) drug therapy
CPT/HCPCS: 71046; 73564; 99282

== ENCOUNTER 2019-01-07 12:58 | Emergency (ER) | payer MEDICARE, SELFPAY ==
[2019-01-07 13:00] VITALS: BP 139/79; PULSE 81; RESP 16; TEMP 36.8; O2SAT 99; BMI 48.4
--- NOTE | 2019-01-07 14:46 | ED.VIS.GEN ---
History of Present Illness Chief Complaint: Lower Extremity Injury Informant: Patient Onset: Days - 2 Narrative: Patient here multiple complaints. History of seizure disorder followed by Dr. Ribeiro on [facility], reports had a breakthrough seizure 2 days ago. Reports falling hurting her lower back. No loss of bowel or bladder control. Also complains of right knee pain. Reports 2 days of cough mild sputum with chest discomfort with cough. Complains of dyspnea. No wheezing. History of asthma. No tobacco history. States mild loose stools, no nausea vomiting, no abdominal pain. Prior similar symptoms: Yes Past Medical History - Allergies and Home Meds Allergies/Adverse Reactions: Allergies azithromycin [From Zithromax Z-Johnny] Allergy (Verified 01/07/19 12:59) Other cephalexin Allergy (Verified 01/07/19 12:59) Unknown doxycycline Allergy (Verified 01/07/19 12:59) Nausea guaifenesin [From Mucinex] Allergy (Verified 01/07/19 12:59) Other latex Allergy (Verified 01/07/19 12:59) Rash oseltamivir [From Tamiflu] Allergy (Verified 01/07/19 12:59) Unknown risperidone [From Risperdal] Allergy (Verified 01/07/19 12:59) Other strawberry Allergy (Verified 01/07/19 12:59) Hives topiramate Allergy (Verified 01/07/19 13:00) Unknown allergic to the generic valdecoxib [From Bextra] Allergy (Verified 01/07/19 12:59) Rash Primary Care Physician: Kenneth Tan MD [Primary Care Provider] - 3-5 Days Smoking Status: Never smoker Review of Systems General: Denies: Chills, Fever, Sweats Eyes: Denies: Visual changes - bilaterally, Diplopia ENT: Denies: Rhinorrhea, Sore throat Cardiovascular: Reports: Chest pain. Denies: Palpitations Respiratory: Reports: Dyspnea, Cough. Denies: Dyspnea on exertion Gastrointestinal: Denies: Abdominal pain, Nausea, Vomiting, Diarrhea, Melena, Hematochezia Genitourinary: Denies: Dysuria, Hematuria, Frequency Musculoskeletal: Denies: Back pain, Extremity Pain Skin: Denies: Rash, Wounds Neurological: Denies: Headache, Weakness, Numbness Physical Exam Vital Signs/Narrative: Vital Signs Temp Pulse Resp BP Pulse Ox 01/07/19 13:00 98.3 F 81 16 139/79 H 99 Inital Vital Signs reviewed: Yes General: Well nourished, Well developed, No Acute Distress, - - Nontoxic Head: Normocephalic, Atraumatic Eyes: Perrl, EOMI ENT: Moist mucous membranes, No rhinorrhea Neck: Supple, Nontender Cardiovascular: Regular rate, Regular rhythm, No murmurs Respiratory: No distress, CTA bilaterally, Chest nontender Abdomen: Soft, Nontender, Nondistended, Normal bowel sounds Back: Nontender, Normal Inspection Extremities: No edema, - - Right lower extremity: 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 Skin: Normal color, No rash Neurological: Alert, Oriented x3, Cranial nerves II-XII grossly intact, Normal Strength, Normal Sensation Psychological: Normal affect, Normal Mood Diagnostic/Tx/Re-eval Chest X-Ray - ED: 2 View, Read by ED Physician, No Acute Disease LS spine 2 views reviewed by myself shows no acute process. 4 views right knee reviewed by myself shows medial compartment arthritic changes. No fractures. Abnormal Lab Results 01/07/19 01/07/19 15:15 15:15 WBC 8.7 RBC 4.80 Hgb 13.9 Hct 44.3 MCV 92.3 MCH 29.0 MCHC 31.4 L RDW Std Deviation 44.2 H RDW Coeff of Zahra 12.9 Plt Count 235 MPV 9.9 Immature Gran % (Auto) 0.600 Neut % (Auto) 65.2 Lymph % (Auto) 26.4 [place] % (Auto) 7.7 Eos % (Auto) 0.0 Baso % (Auto) 0.1 Absolute Neuts (auto) 5.7 Absolute Lymphs (auto) 2.29 Nucleated RBC % 0 Sodium 144 Potassium 4.1 Chloride 113 H Carbon Dioxide 20.0 L Anion Gap 11 BUN 6 L Creatinine 1.02 Estim Creat Clear Calc 71.38 Est GFR (MDRD) Af Amer 79 Est GFR (MDRD) Non-Af 65 BUN/Creatinine Ratio 5.9 L Glucose 87 Calcium 8.5 Troponin I < 0.015 - Medical Decision Making Vital signs stable, nontoxic. Chest x-ray lumbar films knee films obtained on negative with arthritic changes only at the right knee. Labs stable. EKG sinus with no acute changes. Patient reassured reports wheezing at home, discussed asthma with URI symptoms. No antibiotics at this time. Will place on steroids. Patient will follow-up with her PCP. All questions were answered. ED Disposition - Plan for ED Patient: Disposition: Home or Assisted Living Diagnosis: Asthma, URI (upper respiratory infection), Lumbar spine strain, Arthritis of right knee, Atypical chest pain Instructions: Osteoarthritis: Tips for Daily Living, ASTHMA, Acute (Adult), Back Sprain/Strain, BRONCHITIS, No Antibiotic (Adult), CHEST PAIN, Uncertain Cause Prescriptions: predniSONE tablet 60 mg PO DAILY #15 tab Prescription Printed Referrals: Kenneth Tan MD [Primary Care Provider] - 3-5 Days
[2019-01-07 15:00] VITALS: BP 107/73; PULSE 71; RESP 15; O2SAT 99
--- NOTE | 2019-01-07 15:19 | RAD_ITS ---
STUDY: X-RAY CHEST REASON FOR EXAM: Female, 38 years old. Cough with chest pain TECHNIQUE: PA and lateral views of the chest. COMPARISON: 12/16/2018 FINDINGS: In the right upper lobe, there is a suspected pulmonary nodule measuring 1.6 x 1.4 cm. The lungs are clear and expanded. There is no demonstrated pleural abnormality. Normal size heart. Normal mediastinum and carly. Normal visualized pulmonary arteries. Normal visualized aortic arch and descending thoracic aorta. Normal visualized thoracic spine. Normal visualized ribs, clavicles, and shoulders. There is no demonstrated abnormality of the visualized soft tissue structures of the upper abdomen. RAD/Chest PA and Lateral IMPRESSION: Lungs appear clear however, suspected pulmonary nodule in the right upper lobe as above. Chest CT with IV contrast is recommended to further evaluate. Electronically Signed: Gallo Thayer DO at 16:44 EDT Tel , Service support ,
[2019-01-07 15:25] LABS: Absolute Lymphocyte Count 2.29 X10^3/uL (0.83-4.51); Absolute Neutrophil Count 5.7 X10^3/uL (2.0-7.7); Basophil# 0.01 X10^3/uL; Basophil% 0.1 % (0-1); Hematocrit 44.3 % (37-47); Hemoglobin 13.9 g/dL (12.0-15.0); Lymphocyte # 2.29 X10^3/ul (4.0); Lymphocyte % 26.4 % (19-41); Mean Corp Hgb Conc 31.4 g/dL (32-36); Mean Corpuscular Volume 92.3 fL (81-99); Mean Platelet Vol. 9.9 fl (6.2-12.0); Monocyte# 0.67 X10^3/uL; Monocyte% 7.7 % (0-10); NRBC Flagged by Analyzer 0 % (0-5); Neutrophil # 5.65 X10^3/uL (2.7-7.7); Neutrophil % 65.2 % (47-70); Platelet Count 235 K/mm3 (150-450); RBC Distribution Width CV 12.9 % (11.6-14.6); RBC Distribution Width SD 44.2 fl (35.1-43.9); White Blood Count 8.7 K/mm3 (4.4-11.0)
[2019-01-07 15:45] LABS: Anion Gap 11 (5-15); BUN 6 mg/dL (7-18); BUN/Creat Ratio 5.9 RATIO (10-20); Calcium,Total 8.5 mg/dL (8.5-10.1); Chloride 113 mmol/L (98-107); Creatinine, Serum 1.02 mg/dL (0.55-1.02); EST Glomerular Filtration Rate 65 mL/min (>60); Est Glom Filt Rate - Afr Amer 79 mL/min (>60); Estimated Creatinine Clearance 71.38 ml/min; Glucose 87 mg/dL (74-106); Potassium 4.1 mmol/L (3.5-5.1); Sodium Level 144 mmol/L (136-145)
--- NOTE | 2019-01-07 15:45 | RAD_ITS ---
STUDY: X-RAY - LUMBAR SPINE REASON FOR EXAM: Female, 38 years old. Back pain TECHNIQUE: 3 view(s) of the lumbar spine were obtained. COMPARISON: None FINDINGS: Normal lumbar lordosis. There is no substantial scoliosis. There is a normal alignment of the vertebrae. There is multilevel endplate spondylosis of the lumbar vertebrae. Normal disc space heights. There is no demonstrated fracture. The soft tissue structures are unremarkable. RAD/Lumbar Spine 2 or 3 Views IMPRESSION: No acute findings Electronically Signed: Gallo Thayer DO at 16:04 EDT Tel , Service support ,
--- NOTE | 2019-01-07 15:45 | RAD_ITS ---
STUDY: X-RAY - RIGHT KNEE REASON FOR EXAM: Female, 38 years old. Knee pain TECHNIQUE: 4 view(s) of the knee. Standing COMPARISON: None. FINDINGS: Normal visualized distal femur. Normal visualized proximal tibia and fibula. Normal proximal tibiofibular articulation. There is mild degenerative arthrosis of the medial femorotibial compartment. There is mild degenerative arthrosis of the lateral femorotibial compartment. There is mild degenerative arthrosis of the patellofemoral articulation. There is no demonstrated joint effusion. The soft tissue structures are unremarkable. RAD/Knee 4 or More Views IMPRESSION: Mild degenerative changes without acute findings Electronically Signed: Gallo Thayer DO at 16:05 EDT Tel , Service support ,
--- NOTE | 2019-01-07 16:07 | EKG12_ITS ---
Test Reason : LOWER EXTREMITY Blood Pressure : / mmHG Vent. Rate : 055 BPM Atrial Rate : 055 BPM P-R Int : 176 ms QRS Dur : 086 ms QT Int : 424 ms P-R-T Axes : 030 019 018 degrees QTc Int : 405 ms Sinus bradycardia with sinus arrhythmia Abnormal ECG Confirmed by ALBERT CUBA, MILLA ([id number]), legal editor MELLISA DE LA ROSA ([id number]) on 01/10/2019 9:16:20 AM Referred By: MOOSE Confirmed By:MILLA PRICE MD
== END 2019-01-07 16:33 | disposition home or self-care (01) ==
PROVIDERS: Emergency Provider Emergency Medicine; Family Provider Family Medicine; PCP Family Medicine
DX: M17.11 Unilateral primary osteoarthritis, right knee (principal); J06.9 Acute upper respiratory infection, unspecified; J45.909 Unspecified asthma, uncomplicated; R07.89 Other chest pain; S39.012A Strain of muscle, fascia and tendon of lower back, initial encounter; G40.909 Epilepsy, unspecified, not intractable, without status epilepticus; Z79.899 Other long term (current) drug therapy; W18.30XA Fall on same level, unspecified, initial encounter; Y93.89 Activity, other specified; Y92.89 Other specified places as the place of occurrence of the external cause; Y99.8 Other external cause status
CPT/HCPCS: 71046; 72100; 73564; 80048; 84484; 85025; 93005; 99285; J7030

== ENCOUNTER → 2019-03-10 08:22 | Outpatient (CLI) | payer MEDICARE, SELFPAY ==
[2019-02-23 14:23] VITALS: BMI 50.8
--- NOTE | 2019-03-10 08:24 | ECHOD_ITS ---
Reason For Study: DYSPNEA/SOB Procedure This was a 2D Doppler, Color Flow transthoracic echocardiogram. The study was technically difficult. Due to body habitus. Unable to gain IV access, attempted x 5. Exam performed in department. Left Ventricle Normal LV size. The estimated ejection fraction is 55 %. Normal diastology for age. No regional wall motion abnormalities noted. Right Ventricle Normal RV size. Normal systolic function. Atria Normal left atrium. Normal right atrium. Mitral Valve There is no mitral valve stenosis. No mitral valve insufficiency. Tricuspid Valve There is no tricuspid stenosis. Trivial tricuspid valve insufficiency. Unable to estimate RV systolic pressure due to insufficient tricuspid regurgitant envelope. Aortic Valve The aortic valve is not well visualized. There is no aortic stenosis. No aortic valve insufficiency. Pulmonic Valve There is no pulmonic valvular stenosis. No pulmonic valve insufficiency. Great Vessels Normal aortic root. Pericardium/Pleural No pericardial effusion. MMode/2D Measurements & Calculations LVIDd: 4.5 cm IVSd: 1.1 cm Ao root diam: 2.6 cm LVIDs: 3.2 cm LVPWd: 1.0 cm RVDd: 3.5 cm FS: 29.2 % LAV(MOD-bp): 54.3 ml LA A4 area: 18.1 cm2 LA dimension(2D): 3.8 cm LAV(MOD-bp) Indexed: 22.4 ml/m2 LAV(MOD-sp2): 53.9 ml LAV(MOD-sp4): 46.9 ml RA A4 area: 12.3 cm2 Time Measurements MV dec time: 0.18 sec Doppler Measurements & Calculations MV E max olvin: 116.7 cm/sec Lat Peak E' Olvin: 9.8 cm/sec Med Peak E' Olvin: 10.2 cm/sec MV A max olvin: 60.3 cm/sec E/E' lat: 11.9 E/E' med: 11.4 MV E/A: 1.9 Ao V2 max: 109.9 cm/sec LV V1 max: 96.5 cm/sec PA V2 max: 83.6 cm/sec Ao max P.8 mmHg LV V1 max P.7 mmHg TR max olvin: 227.9 cm/sec TR max P.9 mmHg Interpretation Summary The study was technically difficult. The estimated ejection fraction is 55 %. Normal diastology for age. The aortic valve is not well visualized. The study was technically difficult. Ordering Physician: Corby Jacobs Referring Physician: Kenneth Tan Performed By: Unique Gonzales, ERASMO, RVT
--- NOTE | 2019-03-11 15:21 | STRESSREP ---
Stress Test Report Date: 03/10/2019 Procedure: Exercise tolerance test Indications: Chest pain Consent: Per the patient Procedure: The patient exercised on a Gerber protocol for 2 minutes and 18 seconds achieving a peak heart rate of 142 bpm (77 % predicted maximal heart rate) with a peak blood pressure 140/72 mmHg and a peak MET capacity of approximately 4.2 mET's. The baseline ECG demonstrated normal sinus rhythm. The peak exercise ECG demonstrated sinus tachycardia with no significant ST-T changes. [There were no cardiac dysrhythmias pretest, during exercise, or recovery]. The functional capacity was considered significantly decreased for age. The patient had no complaint of chest discomfort during exercise or recovery. The examination was discontinued secondary to shortness of breath, knees hurting. Impression: 1. Technically inadequate (percent predicted maximal heart rate less than 85%) exercise tolerance test. This decreases the sensitivity of the test. 2. Stress test is negative for exercise-induced chest pain. 3. Stress test test is negative for exercise-induced EKG changes of ischemia. 4. Functional capacity is significantly decreased for age This note was generated with [employer] software. It may contain incorrect words, spelling, and punctuation that were not noted in checking the note before signing.
== END ==
PROVIDERS: Family Provider Family Medicine; PCP Family Medicine; Referring Provider Specialist; Visit Provider Specialist
DX: R07.9 Chest pain, unspecified (principal); R06.00 Dyspnea, unspecified; R06.09 Other forms of dyspnea
CPT/HCPCS: 93017; 93306; Q9957; A4216

== ENCOUNTER → 2019-04-14 13:39 | Outpatient (CLI) | payer MEDICARE, SELFPAY ==
[2019-02-23 14:23] VITALS: BMI 50.8
[2019-04-14 14:07] LABS: Absolute Neutrophil Count 5.1 X10^3/uL (2.0-7.7); Basophil# 0.02 X10^3/uL; Basophil% 0.3 % (0-1); Hematocrit 44.6 % (37-47); Lymphocyte % 25.3 % (19-41); Mean Corp Hgb Conc 31.4 g/dL (32-36); Mean Corpuscular Hgb 29.4 pg (27.0-32.0); Mean Corpuscular Volume 93.5 fL (81-99); Mean Platelet Vol. 9.9 fl (6.2-12.0); Monocyte# 0.73 X10^3/uL; Monocyte% 9.3 % (0-10); NRBC Flagged by Analyzer 0 % (0-5); Neutrophil % 64.6 % (47-70); Platelet Count 255 K/mm3 (150-450); RBC Distribution Width SD 44.6 fl (35.1-43.9); Red Blood Count 4.77 M/mm3 (4.2-5.4); White Blood Count 7.9 K/mm3 (4.4-11.0)
== END ==
LOC: LAB.FUTURE 13:42 → LAB 13:49
PROVIDERS: Family Provider Family Medicine; PCP Family Medicine; Referring Provider Psychiatry & Neurology Neurology; Visit Provider Psychiatry & Neurology Neurology
DX: G40.009 Localization-related (focal) (partial) idiopathic epilepsy and epileptic syndromes with seizures of localized onset, not intractable, without status epilepticus (principal)
CPT/HCPCS: 36415; 80201; 85025

== ENCOUNTER 2019-05-07 12:45 | Emergency (ER) | payer MEDICARE, MEDICAID, SELFPAY ==
[2019-02-23 14:23] VITALS: BMI 50.8
[2019-05-07 12:45] VITALS: BP 164/67; PULSE 87; RESP 18; TEMP 36.1; O2SAT 98; BMI 49.9
--- NOTE | 2019-05-07 12:58 | EKG12_ITS ---
Test Reason : GEN ILLNES Blood Pressure : / mmHG Vent. Rate : 080 BPM Atrial Rate : 080 BPM P-R Int : 150 ms QRS Dur : 088 ms QT Int : 356 ms P-R-T Axes : 058 042 065 degrees QTc Int : 410 ms Normal sinus rhythm Normal ECG Confirmed by ALBERT CUBA, MILLA ([id number]), editor school photograph ALAYNA SINGH ([id number]) on 05/10/2019 9:57:22 AM Referred By: Kenneth Tan Confirmed By:MILLA PRICE MD
--- NOTE | 2019-05-07 13:33 | RAD_ITS ---
STUDY: X-RAY CHEST REASON FOR EXAM: Female, 38 years old. PRODUCTIVE COUGH, RIB PAIN, CHEST CONGESTION, CHEST PAIN WITH DEEP BREATH TECHNIQUE: PA and lateral views of the chest. COMPARISON: 01/07/2019 FINDINGS: The lungs are clear and expanded. There is no demonstrated pleural abnormality. Normal size heart. Slight nodular asymmetry just above the right hilum is stable. Normal visualized pulmonary arteries. Normal visualized aortic arch and descending thoracic aorta. Normal visualized thoracic spine. Normal visualized ribs, clavicles, and shoulders. There is no demonstrated abnormality of the visualized soft tissue structures of the upper abdomen. RAD/Chest PA and Lateral IMPRESSION: No acute cardiopulmonary process. Stable exam. Stable nodular density just above the right hilum. Electronically Signed: Krishan Salazar MD (Brooks) at 13:58 EST , Service support ,
--- NOTE | 2019-05-07 13:37 | ED.VIS.URI ---
History of Present Illness Informant: Patient Onset: Yesterday Context: Gradual Onset Timing: Continuous Quality: sharp Location: left thoracic back Current Severity: Moderate Maximum Severity: Moderate Worsened by: - - coughing. Not Worsened By: Swallowing, Eating Solids, Drinking Liquids Relieved by: Not Relieved By: Tylenol, NSAIDs Associated Symptoms: Nasal Congestion, Chest Pain, Productive Cough. Negative for: Headache, Sinus Pressure, Myalgias, Nausea, Vomiting, Diarrhea, Shortness of Breath, Nonproductive cough, Hemoptysis Narrative: 88-year-old female presents to the emergency department with nasal congestion and sore throat productive cough with sputum and tightness and sharp pain in her left thoracic back that radiates to her left lateral ribs and her left anterior chest. Symptoms have been constant since she woke up yesterday morning. Symptoms worse with coughing. She is not short of breath. She has no leg pain or swelling, recent travel or surgery, she does not use oral control pills and denies any history of DVT or PE. Denies hemoptysis. Denies vomiting, lightheadedness dizziness or diaphoresis. Denies abdominal pain. Denies trauma. She does have a history of asthma. No fevers. Prior similar symptoms: Yes Recent Illness/Hospitalization: No <Micheal Oleary - Last Filed: 05/07/19 14:01> <Clark Tolentino - Last Filed: 05/07/19 16:20> Chief Complaint: General Illness Past Medical History Prior records reviewed: Yes Past Medical History: - - Mental retardation, conversion disorder, schizophrenia, asthma, PCOS Surgical History: no surgical history Smoking Status: Never smoker <Micheal Oleary - Last Filed: 05/07/19 14:01> <Clark Tolentino - Last Filed: 05/07/19 16:20> - Allergies and Home Meds Allergies/Adverse Reactions: Allergies acetaminophen [From Vicks DayQuil] Allergy (Intermediate, Verified 05/07/19 12:47) seizure chlorpheniramine [From Vicks DayQuil] Allergy (Intermediate, Verified 05/07/19 12:47) seizure dextromethorphan [From Vicks DayQuil] Allergy (Intermediate, Verified 05/07/19 12:47) seizure phenylpropanolamine [From Vicks DayQuil] Allergy (Intermediate, Verified 05/07/19 12:47) seizure pseudoephedrine [From Vicks DayQuil] Allergy (Intermediate, Verified 05/07/19 12:47) seizure azithromycin [From Zithromax Z-Johnny] Allergy (Verified 05/07/19 12:47) Other cephalexin Allergy (Verified 05/07/19 12:47) Unknown doxycycline Allergy (Verified 05/07/19 12:47) Nausea guaifenesin [From Mucinex] Allergy (Verified 05/07/19 12:47) Other latex Allergy (Verified 05/07/19 12:47) Rash oseltamivir [From Tamiflu] Allergy (Verified 05/07/19 12:47) Unknown risperidone [From Risperdal] Allergy (Verified 05/07/19 12:47) Other strawberry Allergy (Verified 05/07/19 12:47) Hives topiramate Allergy (Verified 05/07/19 12:47) Unknown allergic to the generic valdecoxib [From Bextra] Allergy (Verified 05/07/19 12:47) Rash Primary Care Physician: Kenneth Tan MD [Primary Care Provider] - 3-5 Days Review of Systems All systems negative except as indicated General: Denies: Chills, Fever Eyes: Denies: Visual changes - bilaterally, Blurred Vision - bilaterally ENT: Reports: Rhinorrhea, Sore throat. Denies: Bilateral ear pain Cardiovascular: Reports: Chest pain. Denies: Palpitations, Heart racing Respiratory: Reports: Dyspnea, Cough, Sputum. Denies: Dyspnea on exertion, Orthopnea, Paroxysmal nocturnal dyspnea Gastrointestinal: Denies: Abdominal pain, Nausea, Vomiting, Diarrhea Genitourinary: Denies: Dysuria, Hematuria, Frequency Musculoskeletal: Denies: Myalgias, Arthralgias, Neck pain, Back pain Skin: Denies: Rash, Abscess, Abrasions Neurological: Denies: Headache, Weakness, Parasthesia <Micheal Oleary - Last Filed: 05/07/19 14:01> Physical Exam Vital Signs/Narrative: Vital Signs Temp Pulse Resp BP Pulse Ox 05/07/19 12:45 97 F L 87 18 164/67 H 98 Inital Vital Signs reviewed: Yes General: Well nourished, Well developed, Obese Head: Normocephalic, Atraumatic. Negative for: Frontal Tenderness, Maxillary Tenderness, Sinus Tenderness Eyes: Perrl, EOMI Ears: Normal external canal, TM's clear. Negative for: Pain with Movement of Right Tragus, Pain with Movement of Left Tragus, Right Mastoid Tenderness, Left Mastoid Tenderness Nose: Normal Inspection, No Rhinorrhea Mouth/Throat: Normal Inspection, No Posterior Erythema, Airway Patent Neck: Supple, Nontender, No Lymphadenopathy, No Meningismus Cardiovascular: Regular rate, Regular rhythm, No murmurs Respiratory: No distress, CTA bilaterally, Chest tenderness Abdomen: Soft, Nontender, Nondistended, Normal bowel sounds, No masses Back: Nontender, Normal Inspection Extremities: Nontender, No edema Skin: Normal color, No rash Neurological: Alert, Oriented x3 Psychological: Normal affect, Normal Mood <Micheal Oleary - Last Filed: 05/07/19 14:01> Vital Signs/Narrative: Vital Signs Temp Pulse Resp BP Pulse Ox 05/07/19 12:45 97 F L 87 18 164/67 H 98 <Clark Tolentino - Last Filed: 05/07/19 16:20> Diagnostic/Tx/Re-eval Chest X-Ray - ED: 2 View, Read by ED Physician, Read by Radiologist, No Acute Disease - EKG Initial EKG Interpretation: Sinus Rhythm, No Acute Injury Pattern Prior: Unchanged - Medical Decision Making On arrival EKG was normal sinus rhythm rate of 80 bpm. No acute ischemic changes. Patient PERC negative. 2 view chest x-ray shows no acute abnormality. Patient symptoms are likely due to inflammation from an upper respiratory tract infection. We will refill the patient's albuterol MDI prescribed Tessalon Perles anti-inflammatories and have her follow close with her primary care physician. Vital signs stable. Patient agreeable with plan all questions answered and she will be discharged <Micheal Oleary - Last Filed: 05/07/19 14:01> - Medical Decision Making Attending Note: I evaluated this patient with the midlevel provider. I performed my own face to face evaluation and agree with the above noted history and physical. I agree with the plan of care and the disposition. Patient presented complaining of chest pain. Review of the patient's records shows that she has had extensive work-up for this and multiple visits. EKG and chest x-ray are negative as noted above. Patient was discharged with supportive care. <Clark Tolentino - Last Filed: 05/07/19 16:20> ED Disposition <QuetabobbyMicheal - Last Filed: 05/07/19 14:01> <Clark Tolentino - Last Filed: 05/07/19 16:20> - Plan for ED Patient: Disposition: Home or Assisted Living Diagnosis: Upper respiratory infection, viral Instructions: URI, Viral, No Abx (Adult) Prescriptions: Ibuprofen 600 mg PO 4X/DAY PRN #28 tab PRN Reason: Pain Or Fever Prescription Printed Benzonatate [Tessalon Perle] 200 mg PO TID PRN PRN #20 cap PRN Reason: Cough Prescription Printed Albuterol Inhaler [Ventolin Hfa] 2 puff INHALATION Q4H PRN PRN #1 inhaler PRN Reason: Wheezing Prescription Printed Referrals: Kenneth Tan MD [Primary Care Provider] - 3-5 Days
== END 2019-05-07 14:23 | disposition home or self-care (01) ==
PROVIDERS: Emergency Provider Physician Assistant Medical; PCP Family Medicine; Referring Provider Family Medicine
DX: J06.9 Acute upper respiratory infection, unspecified (principal); F79 Unspecified intellectual disabilities; J45.909 Unspecified asthma, uncomplicated; F20.9 Schizophrenia, unspecified; E66.9 Obesity, unspecified; Z79.51 Long term (current) use of inhaled steroids; Z79.899 Other long term (current) drug therapy
CPT/HCPCS: 71046; 93005; 99282

== ENCOUNTER → 2019-05-12 10:24 | Outpatient (CLI) | payer MEDICARE, MEDICAID, SELFPAY ==
[2019-05-07 12:45] VITALS: BMI 49.9
== END ==
PROVIDERS: PCP Family Medicine; Referring Provider Psychiatry & Neurology Neurology; Visit Provider Psychiatry & Neurology Neurology
DX: G40.919 Epilepsy, unspecified, intractable, without status epilepticus (principal)
CPT/HCPCS: 36415

== ENCOUNTER 2019-06-03 13:11 | Emergency (ER) | payer MEDICARE, MEDICAID, SELFPAY ==
[2019-05-17 12:54] VITALS: BMI 53.8
[2019-06-03 13:13] VITALS: BP 107/67; PULSE 80; RESP 15; TEMP 36.7; O2SAT 99; BMI 51.0
--- NOTE | 2019-06-03 13:32 | CT_ITS ---
STUDY: CT BRAIN WITHOUT CONTRAST REASON FOR EXAM: Female, 38 years old. HEAD INJURY D/T FALLING DURING A SEIZURE RADIATION DOSAGE (If Supplied By Facility): CTDIvol = ( 44.99 ) mGy, DLP = ( 762.36 ) mGycm TECHNIQUE: Transaxial CT imaging of the brain was performed without administration of intravenous contrast material. Individualized dose optimization techniques were used for this CT. COMPARISON: Comparison is made with prior examination dated November 20, 2017. FINDINGS: Normal soft tissue structures. Normal calvarium. Normal size ventricles and extra-axial spaces for the patient''s age. Normal white matter tracts of the cerebral hemispheres. Normal basal ganglia and thalami. Normal brainstem. Normal cerebellum. There is no intracranial hemorrhage. There are no findings of an acute ischemic infarction. Normal visualized paranasal sinuses. CT/Brain/Head without Contrast IMPRESSION: Normal unenhanced CT scan of the brain. Electronically Signed: Cj Damon, at 15:12 EST , Service support ,
--- NOTE | 2019-06-03 14:21 | ED.DCSUM_ITS ---
- ER Visit Summary Date of Service: 06/03/19 Chief Complaint: Head injury History of Present Illness: The patient is a 38 F who presents after a head injury that occurred 4 days ago. Mother states the patient has been more confused since the head injury. Mother states patient's head injury occurred during a seizure. Patient describes her pain as aching. Patient states the pain is over the occipital area. Patient denies any nausea or vomiting. Patient does admit to a sore throat and some rhinorrhea. Patient admits to subjective fevers and sweats. Physical Examination: Vital signs are stable. Patient is afebrile. Patient is in no acute distress. Pupils are equal, round, and reactive to light bilaterally. Extraocular muscles are intact. There is no nystagmus noted. Oral mucosa is pink and moist. Neck is supple. Trachea is midline. No JVD. Heart was regular rate and rhythm. Lungs are clear and equal bilaterally. Abdomen is soft. Bowel sounds are normal. There is no tenderness. Cranial nerves II through XII are intact. There are no focal motor or sensory deficits noted. Test Results: CBC and comprehensive metabolic profile were obtained and were essentially within normal limits. Creatinine was slightly elevated at 1.23. Ammonia level was obtained and was normal. CT scan of the brain was obtained and was normal. Emergency Department Course and Treatment: Patient had a Topamax level ordered as well as another miscellaneous order by her neurologist. These are pending. Patient and family advised of her results. I do not feel the patient needs admission to the hospital at this time. Patient was instructed to follow-up with her primary care physician and neurologist in 3 to 5 days. At this time the Topamax level and other tests will be returned. Patient and family und erstand and are agreeable with the plan. All questions were answered. Disposition: Discharge home Impression: Concussion This note was generated with [employer] dictation software. It may contain incorrect words, spelling, and punctuation that were not noted in review of the chart prior to signing ED Disposition - Plan for ED Patient: Disposition: Home or Assisted Living Diagnosis: Concussion Instructions: CONCUSSION, No Wake Up Referrals: Kenneth Tan MD [Primary Care Provider] - 3-5 Days
[2019-06-03 14:29] LABS: Absolute Lymphocyte Count 1.45 X10^3/uL (0.83-4.51); Absolute Neutrophil Count 7.6 X10^3/uL (2.0-7.7); Basophil# 0.01 X10^3/uL; Basophil% 0.1 % (0-1); Hemoglobin 14.1 g/dL (12.0-15.0); Lymphocyte # 1.45 X10^3/ul (4.0); Lymphocyte % 14.5 % (19-41); Mean Corpuscular Hgb 29.2 pg (27.0-32.0); Mean Corpuscular Volume 91.1 fL (81-99); Mean Platelet Vol. 9.6 fl (6.2-12.0); Monocyte# 0.92 X10^3/uL; Monocyte% 9.2 % (0-10); NRBC Flagged by Analyzer 0 % (0-5); Neutrophil # 7.58 X10^3/uL (2.7-7.7); Neutrophil % 75.9 % (47-70); Platelet Count 260 K/mm3 (150-450); RBC Distribution Width CV 13.1 % (11.6-14.6); RBC Distribution Width SD 43.6 fl (35.1-43.9); Red Blood Count 4.83 M/mm3 (4.2-5.4)
[2019-06-03] MEDS: 0.9% Normal Saline 1,000 ML 1000 ML IV (14:40)
[2019-06-03 14:45] LABS: ALB/GLOB Ratio 0.8 RATIO (0.9-2.4); AST(SGOT) 18 U/L (15-37); Alanine Aminotransfer ALT/SGPT 27 U/L (13-56); Albumin, Serum 3.3 g/dL (3.2-5.0); Alkaline Phosphatase 99 U/L (45-117); Anion Gap 6 (5-15); BUN 10 mg/dL (7-18); BUN/Creat Ratio 8.1 RATIO (10-20); Calcium,Total 8.9 mg/dL (8.5-10.1); Chloride 115 mmol/L (98-107); Creatinine, Serum 1.23 mg/dL (0.55-1.02); EST Glomerular Filtration Rate 52 mL/min (>60); Est Glom Filt Rate - Afr Amer 63 mL/min (>60); Estimated Creatinine Clearance 59.19 ml/min; Globulin 4.2 g/dL (2.2-4.2); Glucose 97 mg/dL (74-106); Potassium 3.8 mmol/L (3.5-5.1); Protein, Total 7.5 g/dL (6.4-8.2); Sodium Level 144 mmol/L (136-145)
[2019-06-03 15:32] LABS: Bacteria 0 SEEN /hpf (None Seen); Mucous, Urine 0 SEEN /hpf (<or=2+); Red Blood Cells-Urine 0 SEEN /hpf (0-5)
[2019-06-03 15:39] LABS: Color, Urine Yellow (Yellow); Glucose, Dipstick Normal (Normal); Ketone-Dipstick Negative (Negative); Leukocyte Esterase-Dipstick 25 /ul (Negative); Nitrite-Dipstick Negative (Negative); Occult Blood-Urine Negative /ul (Negative); Protein-Dipstick Negative (Negative); Urine Bilirubin Dipstick Negative (Negative); Urine Clarity Sl. Cloudy (Clear); Urine Urobilinogen Normal (Normal)
[2019-06-03 15:53] LABS: Squamous Epithelial Cells - UA 5-10 SEEN /hpf (5-10); White Blood Cells 0-5 SEEN /hpf (0-5)
[2019-06-03 16:52] VITALS: BP 115/77; PULSE 70; RESP 16; O2SAT 99
[2019-06-03 18:09] VITALS: RESP 16
== END 2019-06-03 18:10 | disposition home or self-care (01) ==
PROVIDERS: Emergency Provider Emergency Medicine; PCP Family Medicine
DX: S06.0X0A Concussion without loss of consciousness, initial encounter (principal); E66.9 Obesity, unspecified; R56.9 Unspecified convulsions; F20.9 Schizophrenia, unspecified; Z79.899 Other long term (current) drug therapy; X58.XXXA Exposure to other specified factors, initial encounter; Y93.89 Activity, other specified; Y92.89 Other specified places as the place of occurrence of the external cause; Y99.8 Other external cause status
CPT/HCPCS: 70450; 80053; 80201; 81001; 82140; 85025; 96360; 99284; J7030; A4216

== ENCOUNTER → 2019-06-17 | Outpatient (CLI) | payer MEDICARE, MEDICAID, SELFPAY ==
[2019-05-17 12:54] VITALS: BMI 53.8
[2019-06-03 13:13] VITALS: BMI 51.0
[2019-06-20 18:05] LABS: Topiramate 15.6 ug/mL (2.0-25.0)
== END | disposition home or self-care (01) ==
LOC: LAB 13:26
PROVIDERS: PCP Family Medicine; Referring Provider Psychiatry & Neurology Neurology; Visit Provider Psychiatry & Neurology Neurology
DX: G40.919 Epilepsy, unspecified, intractable, without status epilepticus (principal)
CPT/HCPCS: 36415; 80201

== ENCOUNTER 2019-09-30 19:45 | Emergency (ER) | payer MEDICARE, MEDICAID, SELFPAY ==
[2019-07-25 13:51] VITALS: BMI 52.6
[2019-09-30 19:45] VITALS: BP 129/86; PULSE 89; RESP 28; TEMP 36.6; O2SAT 98; BMI 56.8
--- NOTE | 2019-09-30 20:08 | EKG12_ITS ---
Test Reason : CP Blood Pressure : / mmHG Vent. Rate : 086 BPM Atrial Rate : 086 BPM P-R Int : 146 ms QRS Dur : 086 ms QT Int : 360 ms P-R-T Axes : 041 009 -01 degrees QTc Int : 430 ms Normal sinus rhythm Normal ECG Confirmed by MARIAH CUBA, ANGY ([id number]), production editor MELLISA DE LA ROSA ([id number]) on 10/05/2019 1:01:50 PM Referred By: LARA/DESIREE Confirmed By:ANGY LEMUS MD
--- NOTE | 2019-09-30 20:14 | ED.VIS.GEN ---
History of Present Illness Chief Complaint: Chest Pain Informant: Patient Narrative: Patient presents the emergency department for the evaluation of chest pain shortness of breath and lower extremity swelling. Patient earlier this year had a stress test and echocardiogram that were normal. She was seen by cardiology and is felt that her chest pain was noncardiac in nature. She tells me now the chest pain has returned and she feels again dyspnea with exertion. She also notes her lower legs are swollen for the past several days. Previous medical history was noted. She is a non-smoker. She denies any known kidney issues. She denies being on any water pills. She denies any fever. Past Medical History - Allergies and Home Meds Allergies/Adverse Reactions: Allergies acetaminophen [From Vicks DayQuil] Allergy (Intermediate, Verified 06/03/19 13:17) seizure chlorpheniramine [From Vicks DayQuil] Allergy (Intermediate, Verified 06/03/19 13:17) seizure dextromethorphan [From Vicks DayQuil] Allergy (Intermediate, Verified 06/03/19 13:17) seizure phenylpropanolamine [From Vicks DayQuil] Allergy (Intermediate, Verified 06/03/19 13:17) seizure pseudoephedrine [From Vicks DayQuil] Allergy (Intermediate, Verified 06/03/19 13:17) seizure azithromycin [From Zithromax Z-Johnny] Allergy (Verified 06/03/19 13:17) Other cephalexin Allergy (Verified 06/03/19 13:17) Unknown doxycycline Allergy (Verified 06/03/19 13:17) Nausea guaifenesin [From Mucinex] Allergy (Verified 06/03/19 13:17) Other latex Allergy (Verified 06/03/19 13:17) Rash oseltamivir [From Tamiflu] Allergy (Verified 06/03/19 13:17) Unknown risperidone [From Risperdal] Allergy (Verified 06/03/19 13:17) Other strawberry Allergy (Verified 06/03/19 13:17) Hives topiramate Allergy (Verified 06/03/19 13:17) Unknown allergic to the generic valdecoxib [From Bextra] Allergy (Verified 06/03/19 13:17) Rash Primary Care Physician: Kenneth Tan MD [Primary Care Provider] - 1 Week Surgical History: no surgical history Smoking Status: Never smoker Review of Systems General: Denies: Chills, Fever, Sweats Eyes: Denies: Visual changes - bilaterally, Diplopia ENT: Denies: Rhinorrhea, Sore throat Cardiovascular: Reports: Chest pain. Denies: Palpitations Respiratory: Reports: Dyspnea. Denies: Cough, Dyspnea on exertion Gastrointestinal: Denies: Abdominal pain, Nausea, Vomiting, Diarrhea, Melena, Hematochezia Genitourinary: Denies: Dysuria, Hematuria, Frequency Musculoskeletal: Reports: Swelling. Denies: Back pain, Extremity Pain Skin: Denies: Rash, Wounds Neurological: Denies: Headache, Weakness, Numbness Physical Exam Vital Signs/Narrative: Vital Signs Temp Pulse Resp BP Pulse Ox 09/30/19 19:45 97.9 F 89 28 H 129/86 H 98 Inital Vital Signs reviewed: Yes General: Well nourished, Well developed, Obese, No Acute Distress Head: Normocephalic, Atraumatic Eyes: Perrl, EOMI ENT: Moist mucous membranes, No rhinorrhea Neck: Supple, Nontender Cardiovascular: Regular rate, Regular rhythm, No murmurs Respiratory: No distress, CTA bilaterally, Chest nontender Abdomen: Soft, Nontender, Nondistended, Normal bowel sounds Back: Nontender, Normal Inspection Extremities: Nontender, Edema - 1+ edema bilaterally Skin: Normal color, No rash Neurological: Alert, Oriented x3, Cranial nerves II-XII grossly intact, Normal Strength, Normal Sensation Psychological: Normal affect, Normal Mood Diagnostic/Tx/Re-eval Clinical Impression(s) from Imaging Studies Chest X-Ray 09/30/19 20:37 IMPRESSION: 1. Low pulmonary volumes. 2. Severely elevated BMI. Electronically Signed: Yazan Matias, at 20:56 EDT Tel , Service support , Laboratory Last Values WBC 8.5 K/mm3 (4.4-11.0) 09/30/19 20:15 RBC 4.59 M/mm3 (4.2-5.4) 09/30/19 20:15 Hgb 13.2 g/dL (12.0-15.0) 09/30/19 20:15 Hct 43.0 % (37-47) 09/30/19 20:15 MCV 93.7 fL (81-99) 09/30/19 20:15 MCH 28.8 pg (27.0-32.0) 09/30/19 20:15 MCHC 30.7 g/dL (32-36) L 09/30/19 20:15 RDW Std Deviation 48.8 fl (35.1-43.9) H 09/30/19 20:15 RDW Coeff of Zahra 14.2 % (11.6-14.6) 09/30/19 20:15 Plt Count 282 K/mm3 (150-450) 09/30/19 20:15 MPV 9.9 fl (6.2-12.0) 09/30/19 20:15 Immature Gran % (Auto) 0.500 % (0.0-0.9) 09/30/19 20:15 Neut % (Auto) 60.0 % (47-70) 09/30/19 20:15 Lymph % (Auto) 29.6 % (19-41) 09/30/19 20:15 [place] % (Auto) 9.8 % (0-10) 09/30/19 20:15 Eos % (Auto) 0.0 % (0-5) 09/30/19 20:15 Baso % (Auto) 0.1 % (0-1) 09/30/19 20:15 Absolute Neuts (auto) 5.1 X10^3/uL (2.0-7.7) 09/30/19 20:15 Absolute Lymphs (auto) 2.50 X10^3/uL (0.83-4.51) 09/30/19 20:15 Nucleated RBC % 0 % (0-5) 09/30/19 20:15 Sodium 145 mmol/L (136-145) 09/30/19 20:50 Potassium 3.4 mmol/L (3.5-5.1) L 09/30/19 20:50 Chloride 115 mmol/L (98-107) H 09/30/19 20:50 Carbon Dioxide 23.0 mmol/L (21.0-32.0) 09/30/19 20:50 Anion Gap 7 (5-15) 09/30/19 20:50 BUN 5 mg/dL (7-18) L 09/30/19 20:50 Creatinine 0.94 mg/dL (0.55-1.02) 09/30/19 20:50 Estim Creat Clear Calc 73.73 ml/min 09/30/19 20:50 Est GFR (MDRD) Af Amer 87 mL/min (>60) 09/30/19 20:50 Est GFR (MDRD) Non-Af 72 mL/min (>60) 09/30/19 20:50 BUN/Creatinine Ratio 5.3 RATIO (10-20) L 09/30/19 20:50 Glucose 123 mg/dL (74-106) H 09/30/19 20:50 Calcium 8.4 mg/dL (8.5-10.1) L 09/30/19 20:50 Troponin I < 0.015 ng/mL (<0.045) 09/30/19 20:50 - EKG Initial EKG Interpretation: Sinus Rhythm - EKG demonstrated normal sinus rhythm at a rate of 86 without ectopy or concerning features of ACS - Medical Decision Making ASIC labs were negative. In light of a recent stress test and echocardiogram and cardiology feel that her chest pain is noncardiac I doubt that this is cardiac in nature. Her chest x-ray is clear. She does have some lower extremity edema and she has now a normal creatinine. I will place her on Lasix. She is asked for medicine for a cough specifically Tessalon Perles. I have not heard her cough but she is requesting if you think that is reasonable. She is to follow-up with her doctor next week At discharge the patient also states she is out of albuterol and was hoping to get a refill. ED Disposition - Plan for ED Patient: Disposition: Home or Assisted Living Diagnosis: Chest pain, Dyspnea on exertion, Lymphedema Instructions: ED Peripheral Edema, Bilateral Prescriptions: Furosemide [Lasix] 40 mg PO DAILY #5 tab Prescription Printed Benzonatate [Tessalon Perle] 200 mg PO TID PRN PRN #20 cap PRN Reason: Cough Prescription Printed Albuterol Inhaler [Ventolin Hfa] 2 puff INHALATION Q4H PRN PRN #1 inhaler PRN Reason: Wheezing Prescription Printed Referrals: Kenneth Tan MD [Primary Care Provider] - 1 Week
[2019-09-30 20:27] LABS: Absolute Neutrophil Count 5.1 X10^3/uL (2.0-7.7); Basophil# 0.01 X10^3/uL; Basophil% 0.1 % (0-1); Hemoglobin 13.2 g/dL (12.0-15.0); Lymphocyte % 29.6 % (19-41); Mean Corp Hgb Conc 30.7 g/dL (32-36); Mean Corpuscular Hgb 28.8 pg (27.0-32.0); Mean Corpuscular Volume 93.7 fL (81-99); Mean Platelet Vol. 9.9 fl (6.2-12.0); Monocyte# 0.83 X10^3/uL; Monocyte% 9.8 % (0-10); NRBC Flagged by Analyzer 0 % (0-5); Neutrophil # 5.07 X10^3/uL (2.7-7.7); Platelet Count 282 K/mm3 (150-450); RBC Distribution Width CV 14.2 % (11.6-14.6); RBC Distribution Width SD 48.8 fl (35.1-43.9); Red Blood Count 4.59 M/mm3 (4.2-5.4); White Blood Count 8.5 K/mm3 (4.4-11.0)
--- NOTE | 2019-09-30 20:37 | RAD_ITS ---
STUDY: X-RAY CHEST REASON FOR EXAM: Female, 39 years old. CHEST PAIN TECHNIQUE: Frontal view of the chest COMPARISON: May 07, 2019 FINDINGS: Inspiratory volumes are low. There is stable focal scarring in the right upper lobe suprahilar region.. There is no demonstrated pleural abnormality. Normal size heart. Normal mediastinum and carly. Normal visualized pulmonary arteries. Normal visualized aortic arch and descending thoracic aorta. Normal visualized thoracic spine. Normal visualized ribs, clavicles, and shoulders. There is no demonstrated abnormality of the visualized soft tissue structures of the upper abdomen. BMI severely elevated. RAD/Chest 1 View (Portable) IMPRESSION: 1. Low pulmonary volumes. 2. Severely elevated BMI. Electronically Signed: Yazan Matias, at 20:56 EDT Tel , Service support ,
[2019-09-30 21:20] LABS: Anion Gap 7 (5-15); BUN 5 mg/dL (7-18); BUN/Creat Ratio 5.3 RATIO (10-20); Calcium,Total 8.4 mg/dL (8.5-10.1); Chloride 115 mmol/L (98-107); Creatinine, Serum 0.94 mg/dL (0.55-1.02); EST Glomerular Filtration Rate 72 mL/min (>60); Est Glom Filt Rate - Afr Amer 87 mL/min (>60); Estimated Creatinine Clearance 73.73 ml/min; Glucose 123 mg/dL (74-106); Potassium 3.4 mmol/L (3.5-5.1); Sodium Level 145 mmol/L (136-145)
[2019-09-30 22:06] VITALS: BP 107/76; PULSE 86; RESP 18; O2SAT 96
== END 2019-09-30 22:07 | disposition home or self-care (01) ==
PROVIDERS: Emergency Provider Emergency Medicine; PCP Family Medicine
DX: R07.9 Chest pain, unspecified (principal); I89.0 Lymphedema, not elsewhere classified; R06.09 Other forms of dyspnea; E66.9 Obesity, unspecified
CPT/HCPCS: 71045; 80048; 84484; 85025; 93005; 99284; A4216

== ENCOUNTER 2020-06-16 16:07 | Emergency (ER) | payer MEDICARE, SELFPAY ==
[2020-06-16 16:08] VITALS: BP 134/90; PULSE 88; RESP 18; TEMP 35.9; O2SAT 97; BMI 54.1
--- NOTE | 2020-06-16 16:35 | RAD_ITS ---
STUDY: X-RAY - LEFT KNEE REASON FOR EXAM: Female, 39 years old. fall and left knee pain TECHNIQUE: 4 view(s) of the knee. COMPARISON: None. FINDINGS: Normal visualized distal femur. Normal visualized proximal tibia and fibula. Normal proximal tibiofibular articulation. There is no demonstrated fracture. Normal medial femorotibial compartment. Normal lateral femorotibial compartment. Normal patellofemoral articulation. The soft tissue structures are unremarkable. RAD/Knee 4 or More Views IMPRESSION: Normal x-ray examination of the knee. Electronically Signed: Ellie Boyd MD at 17:04 EST , Service support ,
--- NOTE | 2020-06-16 16:36 | ED.DCSUM_ITS ---
- ER Visit Summary Date of Service: 06/16/20 Chief Complaint: Cough and left knee pain History of Present Illness: The patient is a 39 F who seizure disorder on medications. States has had a cough thinks she has bronchitis the last week. Brown sputum. No fever. Mild chills. Mild nausea. No vomiting or diarrhea. No shortness of breath. Also states she fell the other day and injured her left knee and had pain since that time. She is able to walk on it. No prior knee history of surgery. Physical Examination: Obese middle-aged female. Vital signs stable afebrile. HEENT exam unremarkable. Neck nontender no JVD no lymphadenopathy. Lungs clear to auscultation bilaterally. Heart regular rhythm no murmur. Abdomen obese but soft nontender normal bowel sounds no peritoneal signs. Moving all 4 extremities. No edema. Calves nontender. Left knee mild tenderness. No large effusion. Flexion extension intact. ACL PCL intact. As the MCL and LCL. No redness. No warmth. No bony deformity. Flexion extension intact. Quadriceps patellar tendons intact. Left ankle and foot are nontender neurovascular intact. Right lower extremity unremarkable. Neurologically she is awake alert with no focal motor deficits. Test Results: Chest x-ray interpreted by myself and the radiologist as no acute abnormality. Read as normal. Normal cardiac silhouette, mediastinum and lung sofia. No infiltrates. Left knee x-ray turbid by myself shows no acute abnormality. No fracture. Also read by the radiologist. And agrees. Repeat exam at 1730 patient doing well. We went over x-ray results will be discharged home. Emergency Department Course and Treatment: X-rays be obtained. Exam benign. Treatment Plan: Tylenol and/or Motrin for pain and constitutional symptoms. Plenty of fluids and rest. Follow-up if not improving. Disposition: Discharge Impression: Viral URI Fall left knee contusion Morbid obesity This note was generated with [employer] dictation software. It may contain incorrect words, spelling, and punctuation that were not noted in review of the chart prior to signing ED Disposition - Plan for ED Patient: Disposition: Home or Assisted Living Instructions: ED Bronchitis, No Antibiotic (Adult), ED Contusion, Lower Extremity Referrals: Kenneth Tan MD [Primary Care Provider] - 1 Week if not improving Additional Instructions: Decrease pain and swelling. Follow-up if not improving. Plenty of fluids and rest. Tylenol and Motrin for body aches. Follow-up with your doctor if the viral respiratory infections not improving.
--- NOTE | 2020-06-16 16:39 | ED.DEP ---
ED Disposition - Plan for ED Patient: Disposition: Home or Assisted Living Instructions: ED Bronchitis, No Antibiotic (Adult), ED Contusion, Lower Extremity Prescriptions: Ibuprofen [Motrin] 600 mg PO Q6H PRN PRN #20 tab PRN Reason: Pain 1-10 Or Fever Prescription Printed Referrals: Kenneth Tan MD [Primary Care Provider] - 1 Week if not improving Additional Instructions: Decrease pain and swelling. Follow-up if not improving. Plenty of fluids and rest. Tylenol and Motrin for body aches. Follow-up with your doctor if the viral respiratory infections not improving.
--- NOTE | 2020-06-16 16:40 | RAD_ITS ---
STUDY: X-RAY CHEST REASON FOR EXAM: Female, 39 years old. cough TECHNIQUE: 2 views COMPARISON: Prior chest radiograph of 05/07/2019 FINDINGS: The lungs are clear and expanded. There is no demonstrated pleural abnormality. Normal size heart. Normal mediastinum and carly. Normal visualized pulmonary arteries. Normal visualized aortic arch and descending thoracic aorta. Normal visualized thoracic spine. Normal visualized ribs, clavicles, and shoulders. There is no demonstrated abnormality of the visualized soft tissue structures of the upper abdomen. RAD/Chest PA and Lateral IMPRESSION: Normal x-ray examination of the chest. Electronically Signed: Ellie Boyd MD at 17:04 EST , Service support ,
[2020-06-16 17:39] VITALS: PULSE 82; RESP 19; O2SAT 97
== END 2020-06-16 17:42 | disposition home or self-care (01) ==
LOC: ED 17:03
PROVIDERS: Emergency Provider Emergency Medicine; PCP Family Medicine
DX: J06.9 Acute upper respiratory infection, unspecified (principal); E66.01 Morbid (severe) obesity due to excess calories; S80.02XA Contusion of left knee, initial encounter; G40.909 Epilepsy, unspecified, not intractable, without status epilepticus; Z79.899 Other long term (current) drug therapy; W18.30XA Fall on same level, unspecified, initial encounter; Y93.89 Activity, other specified; Y92.89 Other specified places as the place of occurrence of the external cause; Y99.8 Other external cause status
CPT/HCPCS: 71046; 73564; 99282

== ENCOUNTER → 2021-09-16 | Outpatient (CLI) | payer MEDICARE, MEDICAID, SELFPAY ==
[2021-09-20 08:36] LABS: Topiramate 19.8 ug/mL (2.0-25.0)
== END | disposition home or self-care (01) ==
LOC: LAB.FUTURE 13:17 → LABSPEC 09-17 09:37
PROVIDERS: PCP Family Medicine; Referring Provider Psychiatry & Neurology Neurology; Visit Provider Psychiatry & Neurology Neurology
DX: G40.919 Epilepsy, unspecified, intractable, without status epilepticus (principal)
CPT/HCPCS: 36415; 80201

== ENCOUNTER → 2022-02-13 | Outpatient (CLI) | payer MEDICARE, MEDICAID, SELFPAY ==
--- NOTE | 2022-02-13 07:16 | ECHOCS_ITS ---
Reason For Study: DYSPNEA/SOB Procedure This was a 2D Doppler, Color Flow transthoracic echocardiogram. The study was technically difficult. Due to body habitus. Contrast injection was performed. Exam performed in department. Left Ventricle Based upon the 2D echocardiographic and contrast enhanced images obtained there appears to be grossly normal left ventricular size, wall motion, and systolic function. The estimated ejection fraction is 60 %. No evidence for diastolic dysfunction. Right Ventricle Based upon the 2D echocardiographic images obtained there appears to be grossly normal right ventricular size and systolic function. Atria Normal left atrium. Normal right atrium. No doppler evidence for ASD. Mitral Valve There is no mitral annular calcification. Normal mitral valve. Trivial mitral valve insufficiency. Tricuspid Valve Normal tricuspid valve. Trivial tricuspid valve insufficiency. Unable to estimate RV systolic pressure/pulmonary artery pressure due to technically difficult study. Aortic Valve Trisinus/trileaflet aortic valve. Normal aortic valve. Trivial aortic valve insufficiency. Pulmonic Valve The pulmonic valve is not well visualized. Great Vessels Normal sized aortic root. Pericardium/Pleural No pericardial effusion. Medication Diluted definity 2.0ml given slow IV push to enhance endocardial definition. MMode/2D Measurements & Calculations LVIDd: 4.2 cm IVSd: 1.1 cm Ao root diam: 2.7 cm LVIDs: 2.8 cm LVPWd: 1.1 cm RVDd: 3.3 cm FS: 33.5 % LAV(MOD-bp): 61.0 ml LVAd ap4: 32.6 cm2 LVAd ap2: 24.7 cm2 LAV(MOD-bp) Indexed: 24.6 ml/m2 LVLd ap4: 8.5 cm LVLd ap2: 7.8 cm LAV(MOD-sp2): 55.6 ml EDV(MOD-sp4): 103.7 ml EDV(MOD-sp2): 67.5 ml LAV(MOD-sp4): 59.9 ml EDV(sp4-el): 106.4 ml EDV(sp2-el): 66.5 ml LVAs ap4: 21.5 cm2 LVAs ap2: 15.6 cm2 LVLs ap4: 7.8 cm LVLs ap2: 6.9 cm ESV(MOD-sp4): 51.2 ml ESV(MOD-sp2): 29.9 ml ESV(sp4-el): 50.3 ml ESV(sp2-el): 30.0 ml EF(MOD-sp4): 50.6 % EF(MOD-sp2): 55.7 % EF(sp4-el): 52.7 % SV(MOD-sp4): 52.5 ml SV(MOD-sp2): 37.6 ml SV(sp4-el): 56.1 ml LA A4 area: 19.6 cm2 LA dimension(2D): 4.2 cm RA A4 area: 13.0 cm2 Time Measurements MV dec time: 0.20 sec Doppler Measurements & Calculations MV E max olvin: 98.8 cm/sec Lat Peak E' Olvin: 13.0 cm/sec Med Peak E' Olvin: 8.5 cm/sec MV A max olvin: 68.8 cm/sec E/E' lat: 7.6 E/E' med: 11.6 MV E/A: 1.4 Ao V2 max: 115.9 cm/sec LV V1 max: 103.7 cm/sec MV dec slope: 492.6 cm/sec2 Ao max P.4 mmHg LV V1 max P.3 mmHg Ao V2 mean: 77.4 cm/sec LV V1 mean P.4 mmHg Ao mean P.8 mmHg LV V1 mean: 73.7 cm/sec Ao V2 VTI: 26.2 cm LV V1 VTI: 21.8 cm PA V2 max: 96.9 cm/sec ECHO/Echo Complete W/ Contrast Interpretation Summary The study was technically difficult. Contrast injection was performed. Based upon the 2D echocardiographic and contrast enhanced images obtained there appears to be grossly normal left ventricular size, wall motion, and systolic function. The estimated ejection fraction is 60 %. Trivial mitral valve insufficiency. Trivial tricuspid valve insufficiency. Trivial aortic valve insufficiency. Unable to estimate RV systolic pressure/pulmonary artery pressure due to techni leticia difficult study. No evidence for diastolic dysfunction. Ordering Physician: Cresencio Carrero Referring Physician: Kenneth Tan Performed By: Unique Gonzales, ERASMO, RVT
--- NOTE | 2022-02-13 09:41 | STRESSREP ---
Stress Test Report Date: 02-13-2022 Procedure: Pharmacologic stress nuclear imaging study Indications: Chest pain; shortness of breath/dyspnea on exertion; GERD; seizure disorder; schizophrenia Consent: Per the patient Procedure: The patient underwent pharmacologic (Regadenoson 0.4mg ) evaluation with a peak heart rate of 99 beats per minute (54%predicted maximal heart rate) and a resting blood pressure of 110/76 mmHg and a peak blood pressure of 110/76 mmHg. The baseline ECG demonstrated normal sinus rhythm. The peak pharmacologic ECG demonstrated no obvious ECG changes. There were no cardiac dysrhythmias pretest, during pharmacologic infusion, or recovery. There was no complaint of chest discomfort during pharmacologic infusion or recovery. The examination was discontinued secondary to completion of protocol. Impression: 1. Pharmacologic (Regadenoson) evaluation 2. Peak pharmacologic ECG with no obvious ECG changes. 3. There were no cardiac dysrhythmias pretest, during pharmacologic infusion, or recovery. 4. Nuclear images pending Myocardial perfusion imaging study: Technique: The patient was injected with 15.0 millicuries of technetium 99m Cardiolite and subsequently rest SPECT Cardiolite nuclear imaging was obtained in the horizontal long, vertical long, and short axis views. The patient underwent pharmacologic (Regadenoson) evaluation with a peak heart rate of 99 beats per minute (54% percent predicted maximal heart rate) and a resting blood pressure of 110/76 mmHg and a peak blood pressure of 110/76 mmHg. The patient was injected with 44.8 millicuries of technetium 99m Cardiolite and subsequently stress SPECT Cardiolite nuclear imaging was obtained in the horizontal long, vertical long, and short axis views. A gated Cardiolite study at peak stress was obtained. Interpretation: Rest and stress SPECT Cardiolite nuclear imaging status post realignment, normalization, and attenuation correction demonstrate the appearance of areas of diminished myocardial perfusion/tracer uptake in portions of the mid to distal anterior, anteroseptal, and anterolateral segments which are somewhat more prominent on some resting images and somewhat more prominent on some post-rest images. There is end systolic thickening and brightening. The gated Cardiolite study demonstrates myocardial thickening and inward wall motion. The reported LVEF is 80%. Impression: 1. Rest and stress SPECT current nuclear imaging demonstrate myocardial perfusion changes in the mid to distal anterior, anteroseptal, and anterolateral segments which are somewhat more prominent at rest and stress and also somewhat more prominent at stress versus rest potentially compatible with shifting soft tissue attenuation/artifact, however, an element of stress-induced myocardial ischemia cannot necessarily be excluded. 2. The gated Cardiolite study reports an LVEF of 80%. This note was generated with [employer] software. It may contain incorrect words, spelling, and punctuation that were not noted in checking the note before signing.
== END | disposition home or self-care (01) ==
PROVIDERS: PCP Family Medicine; Referring Provider Internal Medicine Cardiovascular Disease; Visit Provider Internal Medicine Cardiovascular Disease
DX: R07.9 Chest pain, unspecified (principal); R06.02 Shortness of breath
CPT/HCPCS: 78452; 93017; 93306; A9500; Q9957; A4216; C8929; J2785

== ENCOUNTER → 2022-03-03 | Outpatient (CLI) | payer MEDICARE, MEDICAID, SELFPAY ==
[2022-03-03 12:47] VITALS: BP 130/77; RESP 20; TEMP 36.3; O2SAT 98; BMI 56.5
[2022-03-03 13:26] VITALS: BP 130/77; PULSE 70
[2022-03-03] MEDS: Nitroglycerin SL (ED/IMG/CATH) 0.4 MG TABLET SL (13:26)
[2022-03-03 13:32] VITALS: BP 110/70; PULSE 74; RESP 14; O2SAT 95
--- NOTE | 2022-03-03 13:45 | CT_ITS ---
INDICATION: ABNORMAL STRESS EXAMINATION: CT CHEST WITHOUT CONTRAST - CT Chest W/O Contrast Injection. Chest Overread . TECHNIQUE: Helically acquired images were obtained of the chest. A radiation dose optimization technique was used for this scan. IV Contrast dosage and agent: None. COMPARISON: None. FINDINGS: LUNGS, PLEURA AND LARGE AIRWAYS: Minimal increased markings in the medial aspect of the superior segment of the right lower lobe. Increased markings are also seen in the medial aspect of the right middle No pleural effusion or thickening. No pneumothorax. THYROID: No thyroid lesions. HEART AND PERICARDIUM: Heart size is normal. No pericardial effusion. CORONARY ARTERIES: Coronary artery calcification VESSELS: Thoracic aorta is not dilated. MEDIASTINUM AND AZRA: Small benign-appearing mediastinal lymph nodes. Esophagus is unremarkable. No hiatal hernia. UPPER ABDOMEN: No acute pathology. BONES: No suspicious lytic or blastic abnormality. CT/Limited Chest CT Cardiac Only IMPRESSION: Minimal increased markings in the medial aspect of the superior segment of the right lower lobe as well as in the medial aspect of the right middle lobe. This may represent atelectasis. Electronically Signed: Cj Damon MD at 10:13 [facility] ,
--- NOTE | 2022-03-03 17:25 | CA.SCORE ---
Calcium Scoring Date of Study:: 03/03/22 Coronary Calcium Scoring: High-resolution Computed Tomographic imaging of the chest was performed on 03/03/2022 with particular attention paid to the coronary arteries. Images from the examination were analyzed for the presence and extent of coronary artery calcification , using coronary calcium quantification software. The patient tolerated the procedure well and there were no complications. The results of the coronary calcification analysis are provided below. Findings Coronary Artery Left Main (LM): 0 Left Anterior Descending (LAD): 0 Left Circumflex (LCX): 0 Right Coronary Artery (RCA): 0 Total Agatston Score: 0 Percentile Ranking: According to prepublished reference information, 50% of patients of the same gender/similar age had the same/lower scores. Calcium Scoring Interpretation: 0 No identifiable atherosclerotic plaque. Very low cardiovascular disease risk. <5% chance of presence coronary artery disease A Negative Examination 1-10 Minimal Plaque burden. Significant coronary artery disease very unlikely. 11-100 Mild plaque burden. Likely mild or minimal coronary atherosclerosis. 101-400 Moderate plaque burden Moderate non-obstructive coronary artery disease highly likely. Over 400 Extensive plaque burden. High likelihood of at least one significant coronary stenosis (>50% diameter) Calcium Score: 0 Negative Examination Conclusion: Continue cardiovascular evaluation as deemed appropriate. This note was generated using a voice recognition system and there may be incorrect words, spelling or punctuation that were not noted when reviewing the office note prior to saving.
--- NOTE | 2022-03-03 17:38 | CCTA_ITS ---
CCTA w/Cont Coronary Arteries Date of Study:: 03/03/22 Chest pain; abnormal pharmacologic stress nuclear study Consent:: Per patient High-resolution Computed Tomographic imaging of the chest was performed on 03/03/2022 with particular attention paid to the coronary arteries. Images from the examination were analyzed for the presence and extent of coronary artery calcification using coronary calcium quantification software as well as for the presence of atherosclerotic coronary artery disease. Patient was reported as having difficulty remaining still during her evaluation secondary to her diagnosis of being developmentally delayed/mentally handicapped. The patient tolerated the procedure well and there were no complications. Technical adequacy: This is a technically difficult study secondary to the patient's body motion during image acquisition demonstrating significant misreg istration artifact. LEFT MAIN CORONARY ARTERY: The left main coronary artery appears to be a large vessel giving rise to left anterior descending and left circumflex coronary arteries. The left main coronary artery appears to be patent with no obvious angiographically significant appearing disease. LEFT ANTERIOR DESCENDING CORONARY ARTERY: The left anterior descending coronary artery appears to be a large vessel coursing to the LV apex. The left anterior descending coronary artery is difficult to visualize, however, it does appear to be patent with no obvious angiographically significant a ppearing coronary artery disease in the portions visualized. LEFT CIRCUMFLEX CORONARY ARTERY: The left circumflex coronary artery is difficult to visualize. The left circumflex coronary artery proximal portion appears to be patent with no obvious angiographically significant appearing coronary artery disease. The remainder of the left circumflex coronary artery is not well visualized. RIGHT CORONARY ARTERY: The right coronary artery is difficult to visualize. The right coronary artery proximal portion appears to be patent with no obvious angiographically significant appearing coronary artery disease. The remainder of the right coronary artery is not well visualized. THORACIC AORTA: The thoracic aorta appears to be patent with no obvious angiographically significant appearing atherosclerotic disease. PULMONARY ARTERY: The main pulmonary artery and proximal portions of the right and left pulmonary artery appear to be patent without obvious filling defects. LEFT ATRIUM/APPENDAGE: The left atrium/appendage appears to be without obvious filling defect. MITRAL VALVE: The mitral valve appears to be bileaflet structure. AORTIC VALVE: The aortic valve anatomy is not well visualized. LEFT VENTRICLE: The left ventricle appears to demonstrate grossly normal-appearing left ventricular size, wall motion, and systolic function. The left ventricular ejection fraction was calculated at 45%. CORONARY CALCIUM SCORE: The coronary artery score was reported at 0.0 8 coronary calcium score of 0 suggest a less than 5% chance of presence of coronary artery disease based upon. Published reference information. This note was generated using a voice recognition system and there may be incorrect words, spelling or punctuation that were not noted when reviewing the office note prior to saving.
== END | disposition home or self-care (01) ==
LOC: CT 12:16
PROVIDERS: PCP Family Medicine; Referring Provider Internal Medicine Cardiovascular Disease; Visit Provider Internal Medicine Cardiovascular Disease
DX: R94.39 Abnormal result of other cardiovascular function study (principal); R06.09 Other forms of dyspnea; R07.9 Chest pain, unspecified; I25.10 Atherosclerotic heart disease of native coronary artery without angina pectoris
CPT/HCPCS: 75571; 75574; 76380; Q9967; A4216

== ENCOUNTER 2022-04-25 15:48 | Emergency (ER) | payer MEDICARE, MEDICAID, SELFPAY ==
[2022-04-25 15:50] VITALS: BP 134/78; PULSE 89; RESP 18; TEMP 36.6; O2SAT 99; BMI 55.7
--- NOTE | 2022-04-25 17:05 | RAD_ITS ---
EXAM: XR CHEST, 1 VIEW CLINICAL INDICATION: SOB TECHNIQUE: Frontal view of the chest. This report was created using [employer] report generation technology. COMPARISON: 06/16/2020 FINDINGS: LUNGS AND PLEURAL SPACES: Unremarkable. No consolidation or edema. No pneumothorax. No effusion. HEART: Unremarkable. Cardiac silhouette not enlarged. MEDIASTINUM: Central airways and mediastinal contour are unremarkable. BONES/JOINTS: Unremarkable. SOFT TISSUES: Unremarkable. RAD/Chest 1 View (Portable) IMPRESSION: No radiographic evidence of acute cardiopulmonary disease. Electronically Signed: Usman Roper MD at 17:32 EST ,
[2022-04-25 17:25] VITALS: O2SAT 97
--- NOTE | 2022-04-25 18:13 | ED.VIS.FEGU ---
HPI HPI - Female History of Present Illness Chief Complaint: Vag Bleeding Informant: patient Narrative Narrative: Patient states she is here for 2 complaints. First is that she has been coughing for about a week. She saw her primary doctor. They did not give her any meds. They stated if it was still going on in a week to get rechecked in the emergency department. She states she still gets a cough. She brings up a light ritter sputum which has been continuous for her. She is not having chest pain. She is not actually short of breath. She does state that she has a history of asthma. She has albuterol at home and does use it. But she is wheezing more than normal. Although this patient has a history of mental retardation she is actually a pretty good informant for details. She has had some subjective fevers but never checked her temperature. No leg pain. No history of heart disease or blood clots. Patient also states that she is started having a little vaginal bleeding today. It is darker red with a few small clots. It is smaller than her normal menstrual cycle. But this patient states that despite her young age, she is going through menopause. She has irregular menstrual cycles and her last one was about 2 or 3 months ago. She is not having any pain or cramping. She does not feel lightheaded or dizzy. I have reviewed her past medical history, medications, multiple allergies, surgery on the chart. Patient is a non-smoker. [facility] Medical History Abnormal stress test Adjustment disorder with depressed mood Chest pain Chronic factitious illness with physical symptoms Conversion disorder Generalized seizure disorder GERD (gastroesophageal reflux disease) History of asthma History of mental retardation Myalgia and myositis PCOS (polycystic ovarian syndrome) Schizophrenia Seizure Home Medications cetirizine 10 mg tablet 10 mg PO DAILY 02/11/19 [History Last Taken Unknown] iloperidone 4 mg tablet 4 mg PO QHS BIPOLAR 02/11/19 [History Last Taken 06/02/19] lacosamide 200 mg tablet 400 mg PO BID SEIZURES 02/11/19 [History Last Taken 06/03/19] multivitamin 1 tab PO DAILY 02/11/19 [History Last Taken 06/03/19] topiramate 200 mg tablet (Topamax) 400 mg PO BID SEIZURES 02/11/19 [History Last Taken 06/03/19] citalopram 20 mg tablet 20 mg PO DAILY 02/23/19 [History Last Taken 06/03/19] albuterol sulfate 90 mcg/actuation aerosol inhaler 2 puff inhalation Q4H PRN PRN Wheezing ##1 05/07/19 [Rx Last Taken 05/29/19] paliperidone palmitate 234 mg/1.5 mL intramuscular syringe 234 mg IM QMONTH 06/03/19 [History Last Taken 05/25/19] ibuprofen 600 mg tablet 600 mg PO Q6H PRN PRN Pain 1-10 Or Fever #20 tabs 06/16/20 [Rx Last Taken Unknown] benztropine 1 mg tablet 1 mg PO .COMPLEX 01/30/22 [History Last Taken Unknown] levetiracetam 500 mg tablet 500 mg PO BID 01/30/22 [History Last Taken Unknown] montelukast 10 mg tablet 10 mg PO DAILY 01/30/22 [History Last Taken Unknown] zonisamide 100 mg capsule 200 mg PO BID 01/30/22 [History Last Taken Unknown] benzonatate 100 mg capsule 200 mg PO TID PRN cough #30 caps 02/11/22 [Rx Last Taken Unknown] ibuprofen 200 mg capsule 200 mg PO Q6H PRN pain #30 caps 02/11/22 [Rx Last Taken Unknown] metoprolol tartrate 50 mg tablet 50 mg PO .COMPLEX #2 tabs 02/18/22 [Rx Last Taken Unknown] prednisone 20 mg tablet 60 mg PO DAILY #15 tabs 04/25/22 [Rx Last Taken Unknown] Allergy/AdvReac Type Severity Reaction Status Date / Time acetaminophen Allergy Intermediate seizure Verified 04/25/22 15:49 [From [facility] DayQuil] chlorpheniramine Allergy Intermediate seizure Verified 04/25/22 15:49 [From [employer] DayQuil] dextromethorphan Allergy Intermediate seizure Verified 04/25/22 15:49 [From [employer] DayQuil] phenylpropanolamine Allergy Intermediate seizure Verified 04/25/22 15:49 [From [facility] DayQuil] pseudoephedrine Allergy Intermediate seizure Verified 04/25/22 15:49 [From [employer] DayQuil] azithromycin Allergy Other Verified 04/25/22 15:49 [From Zithromax [facility]-Johnny] cephalexin Allergy Unknown Verified 04/25/22 15:49 doxycycline Allergy Nausea Verified 04/25/22 15:49 guaifenesin [From Mucinex] Allergy Other Verified 04/25/22 15:49 latex Allergy Rash Verified 04/25/22 15:49 oseltamivir [From Tamiflu] Allergy Unknown Verified 04/25/22 15:49 risperidone [From Risperdal] Allergy Other Verified 04/25/22 15:49 strawberry Allergy Hives Verified 04/25/22 15:49 topiramate Allergy Unknown Verified 04/25/22 15:49 valdecoxib [From Bextra] Allergy Rash Verified 04/25/22 15:49 Family History Mother Asthma Father Heart disease Seizures Brother Seizures Sister Myocardial infarction Heart disease Seizures Grandmother Diabetes CVA (cerebral vascular accident) Social History Smoking Status: Never smoker alcohol intake: never substance use type: does not use caffeine: No ROS ROS ED ENT ENT ED: Reports rhinorrhea and sore throat Cardiovascular Cardiovascular: Denies chest pain or palpitations Respiratory/Chest Respiratory/Chest: Reports cough and sputum; Denies dyspnea Gastrointestinal Gastrointestinal: Denies abdominal pain, constipation, diarrhea, melena, nausea or vomiting Genitourinary Genitourinary ED: Denies dysuria Integumentary Denies rash Neurologic Neurologic: Denies headache(s) Allergic/Immunologic Allergic/Immunologic ED: Denies urticaria EXAM Physical Exam Narrative Exam Narrative: Patient is awake alert no acute distress. Initially I tried to see her but she had been in the restroom. She is nontoxic. She is breathing comfortably. O2 sats are 98 to 100% on room air showing no hypoxia. I do not hear wheezing in the room. She is not pale. HEENT is normal. No icterus. Mucous membranes are moist. Free range of motion of the neck. Due to size, I cannot assess for JVD. Lungs do show a slight expiratory wheeze. Most of this is with a cough or forced expiration but she does have just a hint of wheeze with normal breathing. But I hear no rhonchi. There is no pain with a deep breath. Heart is regular. No murmur gallop or rub. Peripheral pulses are normal. Abdomen is obese but does not appear to be distended. Bowel sounds seem normal. There is no tenderness anywhere on exam. Extremities are not small but they do not show pitting. Patient is awake alert. No confusion. Const Vital Signs: 04/25/22 15:50 04/25/22 17:25 04/25/22 18:22 Temperature 97.9 F Temperature Source Temporal Pulse Rate 89 77 Respiratory Rate 18 28 H Respiratory Effort Normal Non-Labored Respiratory Depth Normal Respiratory Pattern Normal Tachypnea Blood Pressure 134/78 H Blood Pressure Mean 96 Pulse Ox 99 Oxygen Delivery Method Room Air Room Air MDM MDM MDM Narrative Medical decision making narrative: My independent evaluation of the patient's chest x-ray shows changes due to overlying soft tissue but no sign of infiltrate. Cardiac silhouette looks normal. I do not see infiltrate. Radiology final reading also shows no radiographic evidence of acute cardiopulmonary disease. Patient CBC was done due to her reported vaginal bleeding. There is no sign of anemia or white count. is negative. She is not having cramping or pain. She denies pelvic abdominal or back pain. Patient has been coughing for a week. She is a little bit better after a breathing treatment. I hear no wheeze at all now. She is already on an inhaler. I will give her a short course of prednisone. She has not been on steroids for a long time. We discussed reasons to return and follow-up with her primary doctor. Lab Data Attestation: I reviewed the patient's lab results. Labs: Laboratory Results - last 24 hr 04/25/22 04/25/22 18:24 18:24 WBC 9.7 RBC 4.68 Hgb 13.6 Hct 43.0 MCV 91.9 MCH 29.1 MCHC 31.6 L RDW Std Deviation 46.5 H RDW Coeff of Zahra 13.6 Plt Count 258 MPV 9.7 Immature Gran % (Auto) 0.400 Neut % (Auto) 65.4 Lymph % (Auto) 24.4 Walton % (Auto) 9.7 Eos % (Auto) 0.0 Baso % (Auto) 0.1 Absolute Neuts (auto) 6.4 Absolute Lymphs (auto) 2.37 Nucleated RBC % 0 Serum , Qual NEGATIVE Radiography Diagnostic Testing: Clinical Impression(s) from Imaging Studies Chest X-Ray 04/25/22 17:05 IMPRESSION: No radiographic evidence of acute cardiopulmonary disease. Electronically Signed: Usman Roper MD at 17:32 EST , Discharge Plan Triage Chief Complaint: Vag Bleeding ED Provider: Cesar Mustafa Dx/Rx/DC Orders Clinical Impression: Asthma exacerbation, Vaginal bleeding Instructions: ED Asthma, Acute (Adult) Prescriptions: New prednisone 20 mg tablet 60 mg PO DAILY Qty: 15 0RF No Action citalopram 20 mg tablet 20 mg PO DAILY benztropine 1 mg tablet 1 mg PO .COMPLEX Rx Instructions: 1 mg orally 1 and 1/2 tab by mouth in the am and 1 tab by mouth pm; cetirizine 10 mg tablet 10 mg PO DAILY iloperidone 4 mg tablet 4 mg PO QHS topiramate [Topamax] 200 mg tablet 400 mg PO BID Rx Instructions: Must be BRAND name lacosamide 200 mg tablet 400 mg PO BID multivitamin Tablet 1 tab PO DAILY zonisamide 100 mg capsule 200 mg PO BID levetiracetam 500 mg tablet 500 mg PO BID montelukast 10 mg tablet 10 mg PO DAILY benzonatate 100 mg capsule 200 mg PO TID PRN (Reason: cough) Qty: 30 0RF ibuprofen 200 mg capsule 200 mg PO Q6H PRN (Reason: pain) Qty: 30 0RF albuterol sulfate 1 INHALER inhaler 2 puff inhalation Q4H PRN PRN (Reason: Wheezing) Qty: 1 0RF paliperidone palmitate 234 mg/1.5 mL syringe 234 mg IM QMONTH ibuprofen 600 MG tablet 600 mg PO Q6H PRN PRN (Reason: Pain 1-10 Or Fever) Qty: 20 0RF metoprolol tartrate 50 mg tablet 50 mg PO .COMPLEX Qty: 2 0RF Rx Instructions: 50 mg orally take 1 tab by mouth the night before scan and then take 1 tab by mouth 1 hour prior to scan; Primary Care Provider: Kenneth Tan Referrals: Kenneth Tan MD [Primary Care Provider] - 3-5 Days if not improving Disposition Disposition: Home, Self Care
[2022-04-25 18:22] VITALS: PULSE 77; RESP 28
[2022-04-25] MEDS: Ipratropium/Albuterol Sulfate 3 ML AMPUL.NEB INHALATION (18:22)
[2022-04-25 18:31] LABS: Absolute Lymphocyte Count 2.37 X10^3/uL (0.83-4.51); Absolute Neutrophil Count 6.4 X10^3/uL (2.0-7.7); Basophil# 0.01 X10^3/uL; Basophil% 0.1 % (0-1); Hemoglobin 13.6 g/dL (12.0-15.0); Lymphocyte # 2.37 X10^3/ul (0.83-4.51); Lymphocyte % 24.4 % (19-41); Mean Corp Hgb Conc 31.6 g/dL (32-36); Mean Corpuscular Hgb 29.1 pg (27.0-32.0); Mean Corpuscular Volume 91.9 fL (81-99); Mean Platelet Vol. 9.7 fl (6.2-12.0); Monocyte# 0.94 X10^3/uL; Monocyte% 9.7 % (0-10); NRBC Flagged by Analyzer 0 % (0-5); Neutrophil # 6.35 X10^3/uL (2.7-7.7); Neutrophil % 65.4 % (47-70); Platelet Count 258 K/mm3 (150-450); RBC Distribution Width CV 13.6 % (11.6-14.6); RBC Distribution Width SD 46.5 fl (35.1-43.9); Red Blood Count 4.68 M/mm3 (4.2-5.4); White Blood Count 9.7 K/mm3 (4.4-11.0)
[2022-04-25 18:40] LABS: Internal QC Validated? YES +Cl - CLEAR BKGD; Pregnancy, Serum, hCG Quali. NEGATIVE Negative
[2022-04-25 20:21] VITALS: BP 115/75; PULSE 78; RESP 18
== END 2022-04-25 20:30 | disposition home or self-care (01) ==
PROVIDERS: Emergency Provider Emergency Medicine; PCP Family Medicine; Visit Provider Emergency Medicine
DX: J45.901 Unspecified asthma with (acute) exacerbation (principal); N93.9 Abnormal uterine and vaginal bleeding, unspecified; N92.6 Irregular menstruation, unspecified; Z20.822 Contact with and (suspected) exposure to COVID-19
CPT/HCPCS: 71045; 84703; 85025; 87428; 87880; 94640; 99284

== ENCOUNTER 2022-07-14 16:42 | Emergency (ER) | payer MEDICARE, MEDICAID, SELFPAY ==
[2022-07-14] VITALS (25 sets, daily range): BP systolic 98–135; BP diastolic 52–93; PULSE 62–82; RESP 12–36; TEMP 37; O2SAT 94–99; BMI 55.8
--- NOTE | 2022-07-14 19:16 | ED.VIS.CHEST ---
HPI History of Present Illness Chief Complaint: Chest Pain Informant: patient Onset/Context/Timing Onset: Days Activity at onset: gradual Timing: Intermittent Quality: Positive for Sharp Location: Right Parasternal and Left Parasternal Worsened By: Nothing Relieved By: Nothing Associated Symptoms: Positive for Nausea, Dyspnea, Cough and Acid Reflux; Negative for Vomiting, Diaphoresis, Fever, Lightheadedness or Palpitations Narrative Narrative: Patient presents with chest pain that has been getting worse over the past few days. Patient states it is intermittent. Patient describes it as sharp. Patient states it is along the parasternal areas bilaterally. Patient states nothing makes it worse and nothing makes it better. Patient admits to some nausea but denies any vomiting. Patient admits to a cough and some mild shortness of breath. Patient also admits to some heartburn and reflux. Patient denies any fevers but admits to some subjective chills. Patient also admits to some pain in her right knee and calf. CVD Risk Factors: Positive for Family History 1' </=55; Negative for Hypertension, Diabetes, Hypercholesterolemia or Smoking PE Risk Factors: Negative for Recent Travel/Surgery, Recent Immobilization, Prior DVT or PE, Cancer or OCP + Smoking + >/=35 PFSH PFSH Medical History Abnormal stress test Adjustment disorder with depressed mood Chest pain Chronic factitious illness with physical symptoms Conversion disorder Generalized seizure disorder GERD (gastroesophageal reflux disease) History of asthma History of mental retardation Myalgia and myositis PCOS (polycystic ovarian syndrome) Schizophrenia Seizure Home Medications cetirizine 10 mg tablet 10 mg PO DAILY 02/11/19 [History Last Taken Unknown] iloperidone 4 mg tablet 4 mg PO QHS BIPOLAR 02/11/19 [History Last Taken 06/02/19] lacosamide 200 mg tablet 400 mg PO BID SEIZURES 02/11/19 [History Last Taken 06/03/19] multivitamin 1 tab PO DAILY 02/11/19 [History Last Taken 06/03/19] topiramate 200 mg tablet (Topamax) 400 mg PO BID SEIZURES 02/11/19 [History Last Taken 06/03/19] citalopram 20 mg tablet 20 mg PO DAILY 02/23/19 [History Last Taken 06/03/19] albuterol sulfate 90 mcg/actuation aerosol inhaler 2 puff inhalation Q4H PRN PRN Wheezing ##1 05/07/19 [Rx Last Taken 05/29/19] paliperidone palmitate 234 mg/1.5 mL intramuscular syringe 234 mg IM QMONTH 06/03/19 [History Last Taken 05/25/19] ibuprofen 600 mg tablet 600 mg PO Q6H PRN PRN Pain 1-10 Or Fever #20 tabs 06/16/20 [Rx Last Taken Unknown] benztropine 1 mg tablet 1 mg PO .COMPLEX 01/30/22 [History Last Taken Unknown] levetiracetam 500 mg tablet 500 mg PO BID 01/30/22 [History Last Taken Unknown] montelukast 10 mg tablet 10 mg PO DAILY 01/30/22 [History Last Taken Unknown] zonisamide 100 mg capsule 200 mg PO BID 01/30/22 [History Last Taken Unknown] benzonatate 100 mg capsule 200 mg PO TID PRN cough #30 caps 02/11/22 [Rx Last Taken Unknown] ibuprofen 200 mg capsule 200 mg PO Q6H PRN pain #30 caps 02/11/22 [Rx Last Taken Unknown] metoprolol tartrate 50 mg tablet 50 mg PO .COMPLEX #2 tabs 02/18/22 [Rx Last Taken Unknown] prednisone 20 mg tablet 60 mg PO DAILY #15 tabs 04/25/22 [Rx Last Taken Unknown] Allergy/AdvReac Type Severity Reaction Status Date / Time acetaminophen Allergy Intermediate seizure Verified 07/14/22 16:45 [From Vicks DayQuil] chlorpheniramine Allergy Intermediate seizure Verified 07/14/22 16:45 [From Vicks DayQuil] dextromethorphan Allergy Intermediate seizure Verified 07/14/22 16:45 [From Vicks DayQuil] phenylpropanolamine Allergy Intermediate seizure Verified 07/14/22 16:45 [From Vicks DayQuil] pseudoephedrine Allergy Intermediate seizure Verified 07/14/22 16:45 [From Vicks DayQuil] azithromycin Allergy Other Verified 07/14/22 16:45 [From Zithromax Z-Johnny] cephalexin Allergy Unknown Verified 07/14/22 16:45 doxycycline Allergy Nausea Verified 07/14/22 16:45 guaifenesin [From Mucinex] Allergy Other Verified 07/14/22 16:45 latex Allergy Rash Verified 07/14/22 16:45 oseltamivir [From Tamiflu] Allergy Unknown Verified 07/14/22 16:45 risperidone [From Risperdal] Allergy Other Verified 07/14/22 16:45 strawberry Allergy Hives Verified 07/14/22 16:45 topiramate Allergy Unknown Verified 07/14/22 16:45 valdecoxib [From Bextra] Allergy Rash Verified 07/14/22 16:45 Family History Mother Asthma Father Heart disease Seizures Brother Seizures Sister Myocardial infarction Heart disease Seizures Grandmother Diabetes CVA (cerebral vascular accident) Social History Smoking Status: Never smoker alcohol intake: never substance use type: does not use caffeine: No ROS ROS ED Constitutional Constitutional ED: Reports chills and subjective; Denies fever(s) Eyes Eyes: Denies blurry vision or change in vision ENT ENT ED: Denies rhinorrhea or sore throat Cardiovascular Cardiovascular: Reports chest pain; Denies palpitations Respiratory/Chest Respiratory/Chest: Reports dyspnea; Denies cough Gastrointestinal Gastrointestinal: Reports nausea; Denies abdominal pain or vomiting Genitourinary Genitourinary ED: Denies dysuria or hematuria Musculoskeletal Musculoskeletal: Reports back pain; Denies neck pain Integumentary Denies abscess or rash Neurologic Neurologic: Denies headache(s) or weakness Allergic/Immunologic Allergic/Immunologic ED: Denies mouth swelling or urticaria EXAM Physical Exam Const Vital Signs: 07/14/22 16:42 07/14/22 19:41 07/14/22 19:41 Temperature 98.6 F Temperature Source Temporal Pulse Rate 79 82 Respiratory Rate 16 36 H Respiratory Effort Blood Pressure 135/93 H 111/64 Blood Pressure Mean 107 79 Pulse Ox 99 95 Oxygen Delivery Method Room Air Room Air Room Air Oxygen Flow Rate (L/min) 07/14/22 19:41 07/14/22 20:35 07/14/22 21:00 Temperature Temperature Source Pulse Rate 70 62 Respiratory Rate 19 H 22 H Respiratory Effort Normal Blood Pressure 104/68 98/58 L Blood Pressure Mean 80 71 Pulse Ox 95 Oxygen Delivery Method Nasal Cannula Room Air Oxygen Flow Rate (L/min) 1 07/14/22 22:00 07/14/22 19:56 07/14/22 20:00 Temperature Temperature Source Pulse Rate 69 74 Respiratory Rate 32 H 25 H Respiratory Effort Blood Pressure 101/52 L Blood Pressure Mean 68 Pulse Ox 95 94 94 Oxygen Delivery Method Room Air Oxygen Flow Rate (L/min) 07/14/22 20:01 07/14/22 20:10 07/14/22 20:20 Temperature Temperature Source Pulse Rate 77 78 72 Respiratory Rate 27 H 27 H 24 H Respiratory Effort Blood Pressure 111/70 Blood Pressure Mean 81 Pulse Ox 95 94 94 Oxygen Delivery Method Oxygen Flow Rate (L/min) 07/14/22 20:30 07/14/22 20:34 07/14/22 20:40 Temperature Temperature Source Pulse Rate 68 68 67 Respiratory Rate 22 H 21 H 12 Respiratory Effort Blood Pressure 104/68 Blood Pressure Mean 80 Pulse Ox 94 95 94 Oxygen Delivery Method Oxygen Flow Rate (L/min) 07/14/22 21:53 07/14/22 22:01 07/14/22 22:02 Temperature Temperature Source Pulse Rate 73 Respiratory Rate 28 H Respiratory Effort Blood Pressure 112/65 101/52 L Blood Pressure Mean 79 59 Pulse Ox Oxygen Delivery Method Oxygen Flow Rate (L/min) 07/14/22 22:10 07/14/22 22:20 07/14/22 22:30 Temperature Temperature Source Pulse Rate 68 69 65 Respiratory Rate 27 H 22 H 25 H Respiratory Effort Blood Pressure Blood Pressure Mean Pulse Ox 95 95 96 Oxygen Delivery Method Oxygen Flow Rate (L/min) 07/14/22 22:31 07/14/22 22:40 07/14/22 22:50 Temperature Temperature Source Pulse Rate 73 63 73 Respiratory Rate 27 H 13 29 H Respiratory Effort Blood Pressure 112/74 Blood Pressure Mean 85 Pulse Ox Oxygen Delivery Method Oxygen Flow Rate (L/min) 07/14/22 23:00 07/14/22 23:01 Temperature Temperature Source Pulse Rate 73 66 Respiratory Rate 25 H 19 H Respiratory Effort Blood Pressure 107/73 Blood Pressure Mean 84 Pulse Ox 96 Oxygen Delivery Method Oxygen Flow Rate (L/min) Positive well nourished, well developed and obese General Appearance ED: well developed and NAD Nutritional Appearance: obese HEENT normocephalic and atraumatic Eyes PERRL and EOMs intact bilaterally Neck supple and no JVD Chest Wall Chest: tenderness sternum Resp normal respiratory effort and clear to auscultation bilaterally Effort and Inspection: Negative for respiratory distress Cardio regular rate, regular rhythm and no murmurs GI normal to inspection, nondistended, normoactive bowel sounds, soft to palpation, non-tender and non-distended Extremity normal to inspection General Extremety ED: Negative for edema or tenderness General Extremity: Negative for edema Neuro oriented x3, CN's II-XII intact bilaterally and no sensory deficits noted Sensorium / Orientation: awake and alert Motor Exam: strength 5/5 throughout Psych mental status grossly normal Heart Score History: Slightly/Non-Suspicious ECG: Normal Age: </= 45 years Risk Factors: 1 or 2 Risk Factors Troponin: </= Normal Limit Score: 1 MDM MDM MDM Narrative Medical decision making narrative: Differential diagnosis includes cardiac ischemia, cardiac dysrhythmia, pulmonary embolism, pneumonia, pneumothorax, electrolyte abnormality, musculoskeletal pain, and anxiety. EKG will be obtained to assess for cardiac dysrhythmia and cardiac ischemia. Chest x-ray will be obtained to assess for pneumonia and pneumothorax. CBC will be obtained to assess for leukocytosis and anemia. Basic metabolic profile will be obtained to assess for electrolyte abnormality and renal function. High-sensitivity troponin will be obtained to assess for cardiac ischemia. D-dimer will be obtained to assess for pulmonary embolism and DVT. Lab Data Attestation: I reviewed the patient's lab results. Lab results narrative: CBC was reviewed and was within normal limits. D-dimer was reviewed and was mildly elevated at 0.52. Basic metabolic profile was reviewed and was within normal limits. High-sensitivity troponin was reviewed and was normal at 4. 2-hour repeat high-sensitivity troponin was reviewed and was also normal at 4. Labs: Laboratory Results - last 24 hr 07/14/22 07/14/22 07/14/22 19:35 19:35 19:35 WBC 9.8 RBC 5.14 Hgb 15.1 H Hct 47.2 H MCV 91.8 MCH 29.4 MCHC 32.0 RDW Std Deviation 44.0 H RDW Coeff of Zahra 13.0 Plt Count 256 MPV 10.3 Immature Gran % (Auto) 0.400 Neut % (Auto) 64.4 Lymph % (Auto) 26.1 Pratt % (Auto) 9.0 Eos % (Auto) 0.0 Baso % (Auto) 0.1 Absolute Neuts (auto) 6.3 Absolute Lymphs (auto) 2.55 Nucleated RBC % 0 D-Dimer Quant (PE/DVT) 0.52 H* Sodium 139 Potassium 3.7 Chloride 111 H Carbon Dioxide 23.0 Anion Gap 5 BUN 10 Creatinine 1.05 H Estim Creat Clear Calc 64.73 Est GFR (MDRD) Af Amer 75 Est GFR (MDRD) Non-Af 62 BUN/Creatinine Ratio 9.5 L Glucose 87 Calcium 9.0 Troponin I High Sens 4 07/14/22 21:53 WBC RBC Hgb Hct MCV MCH MCHC RDW Std Deviation RDW Coeff of Zahra Plt Count MPV Immature Gran % (Auto) Neut % (Auto) Lymph % (Auto) Pratt % (Auto) Eos % (Auto) Baso % (Auto) Absolute Neuts (auto) Absolute Lymphs (auto) Nucleated RBC % D-Dimer Quant (PE/DVT) Sodium Potassium Chloride Carbon Dioxide Anion Gap BUN Creatinine Estim Creat Clear Calc Est GFR (MDRD) Af Amer Est GFR (MDRD) Non-Af BUN/Creatinine Ratio Glucose Calcium Troponin I High Sens 4 Radiography Chest X-Ray - ED: 1 View, Read by ED Physician, Read by Radiologist and No Acute Disease Diagnostic Testing: Clinical Impression(s) from Imaging Studies Chest X-Ray 07/14/22 19:45 IMPRESSION: No radiographic evidence of acute cardiopulmonary disease. Electronically Signed: Jose Iglesias MD at 20:04 EDT , Venous Duplex 07/14/22 20:49 IMPRESSION: No sonographic evidence of deep venous thrombosis. Electronically Signed: lCark Akhtar DO at 22:09 EDT , Chest CTA 07/14/22 20:57 IMPRESSION: No demonstrated pulmonary embolism or arterial dissection. Electronically Signed: Jose Iglesias MD at 21:19 EDT , Portable 1 view chest x-ray was obtained. On my independent interpretation, lung sofia are clear. There is normal cardiac silhouette. Bony thorax is normal. There is no acute process noted. Radiologist also interpreted the x-ray and agrees. Venous Dopplers of the lower extremity was obtained due to the elevated D-dimer and bilateral leg pain. There is no evidence of DVT. This was interpreted by the radiologist and was also independently reviewed by myself. CTA of the chest was obtained due to the elevated D-dimer and patient's chest pain. There is no evidence of pulmonary embolism or arterial dissection. This was interpreted by the radiologist and was also independently reviewed by myself. EKG Initial EKG: Attestation: I personally reviewed and interpreted this EKG as follows: Interpretation: Sinus Rhythm (85) and No Acute Injury Pattern Comments: EKG was obtained. On my independent interpretation, it showed a normal sinus rhythm with a rate of 85. VT interval, QRS interval, and QTc intervals were all normal. [place] was normal. There are no acute ST or T wave changes. Prior EKG tracings: available for review Prior: Unchanged (09/30/2019) Treatment and Re-Evaluation :: Patient was given aspirin here. Patient was advised of her findings. Patient has a HEART score of 1. Patient was advised that this is low risk for acute cardiac event. Patient was instructed to follow-up with her primary care physician in 3 to 5 days for reevaluation. Patient was instructed return if worse in any way. Patient understood and was agreeable with the plan. All questions were answered. Discharge Plan Triage Chief Complaint: Chest Pain ED Provider: Harry Arreola Dx/Rx/DC Orders Clinical Impression: Chest pain, Morbid obesity with BMI of 50.0-59.9, adult Instructions: ED Chest Pain, Uncertain Cause Prescriptions: No Action citalopram 20 mg tablet 20 mg PO DAILY benztropine 1 mg tablet 1 mg PO .COMPLEX Rx Instructions: 1 mg orally 1 and 1/2 tab by mouth in the am and 1 tab by mouth pm; cetirizine 10 mg tablet 10 mg PO DAILY iloperidone 4 mg tablet 4 mg PO QHS topiramate [Topamax] 200 mg tablet 400 mg PO BID Rx Instructions: Must be BRAND name lacosamide 200 mg tablet 400 mg PO BID multivitamin Tablet 1 tab PO DAILY zonisamide 100 mg capsule 200 mg PO BID levetiracetam 500 mg tablet 500 mg PO BID montelukast 10 mg tablet 10 mg PO DAILY benzonatate 100 mg capsule 200 mg PO TID PRN (Reason: cough) Qty: 30 0RF ibuprofen 200 mg capsule 200 mg PO Q6H PRN (Reason: pain) Qty: 30 0RF albuterol sulfate 1 INHALER inhaler 2 puff inhalation Q4H PRN PRN (Reason: Wheezing) Qty: 1 0RF paliperidone palmitate 234 mg/1.5 mL syringe 234 mg IM QMONTH ibuprofen 600 MG tablet 600 mg PO Q6H PRN PRN (Reason: Pain 1-10 Or Fever) Qty: 20 0RF prednisone 20 mg tablet 60 mg PO DAILY Qty: 15 0RF metoprolol tartrate 50 mg tablet 50 mg PO .COMPLEX Qty: 2 0RF Rx Instructions: 50 mg orally take 1 tab by mouth the night before scan and then take 1 tab by mouth 1 hour prior to scan; Primary Care Provider: Kenneth Tan Referrals: Kenneth Tan MD [Primary Care Provider] - 3-5 Days Disposition Disposition: Home, Self Care
[2022-07-14] MEDS: Aspirin 81 MG TAB.CHEW 324 MG PO (19:36)
--- NOTE | 2022-07-14 19:45 | RAD_ITS ---
EXAM: XR CHEST, 1 VIEW CLINICAL INDICATION: chest pain TECHNIQUE: Frontal view of the chest. This report was created using [employer] report generation technology. COMPARISON: 04.25.22 FINDINGS: LUNGS AND PLEURAL SPACES: Unremarkable. No consolidation or edema. No pneumothorax. No effusion. HEART: Unremarkable. Cardiac silhouette not enlarged. MEDIASTINUM: Central airways and mediastinal contour are unremarkable. BONES/JOINTS: Unremarkable. SOFT TISSUES: Unremarkable. RAD/Chest 1 View (Portable) IMPRESSION: No radiographic evidence of acute cardiopulmonary disease. Electronically Signed: Jose Iglesias MD at 20:04 EDT ,
[2022-07-14 19:58] LABS: Absolute Lymphocyte Count 2.55 X10^3/uL (0.83-4.51); Absolute Neutrophil Count 6.3 X10^3/uL (2.0-7.7); Basophil# 0.01 X10^3/uL; Basophil% 0.1 % (0-1); Hematocrit 47.2 % (37-47); Hemoglobin 15.1 g/dL (12.0-15.0); Lymphocyte # 2.55 X10^3/ul (0.83-4.51); Lymphocyte % 26.1 % (19-41); Mean Corpuscular Hgb 29.4 pg (27.0-32.0); Mean Corpuscular Volume 91.8 fL (81-99); Mean Platelet Vol. 10.3 fl (6.2-12.0); Monocyte# 0.88 X10^3/uL; NRBC Flagged by Analyzer 0 % (0-5); Neutrophil # 6.28 X10^3/uL (2.7-7.7); Neutrophil % 64.4 % (47-70); Platelet Count 256 K/mm3 (150-450); Red Blood Count 5.14 M/mm3 (4.2-5.4); White Blood Count 9.8 K/mm3 (4.4-11.0)
[2022-07-14 20:09] LABS: Anion Gap 5 (5-15); BUN 10 mg/dL (7-18); BUN/Creat Ratio 9.5 RATIO (10-20); Chloride 111 mmol/L (98-107); Creatinine, Serum 1.05 mg/dL (0.55-1.02); EST Glomerular Filtration Rate 62 mL/min (>60); Est Glom Filt Rate - Afr Amer 75 mL/min (>60); Estimated Creatinine Clearance 64.73 ml/min; Glucose 87 mg/dL (74-106); Potassium 3.7 mmol/L (3.5-5.1); Sodium Level 139 mmol/L (136-145); Troponin-I HS (w/2H Reflex) 4 pg/mL (3.0-54.0)
[2022-07-14 20:19] LABS: D-Dimer Quantitative (DVT/PE) 0.52 FEU/ug/m (0.27-0.49)
--- NOTE | 2022-07-14 20:49 | US_ITS ---
INDICATION: undefined -- ELEVATED D-DIMER EXAMINATION: Ultrasound US Venous Duplex LE Bilat Complete TECHNIQUE: Rodriguez scale, pulse wave, and color flow Doppler imaging was performed of the lower extremity venous system. The bilateral greater saphenous, common femoral, femoral, and popliteal veins were interrogated. COMPARISON: CT chest pulmonary angiogram obtained earlier the same evening. FINDINGS: There is normal compression, augmentation, and signal throughout the visualized deep lower extremity veins. No mass or fluid collection. US/Venous Duplex Imag/Cristofer Extrem IMPRESSION: No sonographic evidence of deep venous thrombosis. Electronically Signed: Clark Akhtar DO at 22:09 EDT ,
--- NOTE | 2022-07-14 20:57 | CT_ITS ---
EXAM: CT ANGIOGRAPHY CHEST WITHOUT AND WITH INTRAVENOUS CONTRAST CLINICAL INDICATION: Elevated D-dimer TECHNIQUE: Helically acquired angiography images were obtained of the chest without and with intravenous contrast. This CT exam was performed using one or more of the following dose reduction techniques: automated exposure control, adjustment of the mA and/or kV according to patient size, and/or use of iterative reconstruction technique. This report was created using [employer] report generation technology. MIP reconstructed images were created and reviewed. CONTRAST: 100ML OF ISOVUE 370 RADIATION DOSE: CTDIvol = 12.66 mGy, DLP = 519.67 mGy-cm COMPARISON: None. FINDINGS: PULMONARY ARTERIES: Unremarkable. No demonstrated pulmonary embolism or arterial dissection. AORTA: Unremarkable. Normal in caliber. No evidence of dissection. GREAT VESSELS OF AORTIC ARCH: Unremarkable. Normal in caliber. No evidence of dissection. LUNGS AND PLEURAL SPACES: Unremarkable. No mass. No consolidation or edema. No pleural effusion or thickening. No pneumothorax. HEART: Unremarkable. Heart size is normal. No pericardial effusion. No signs of right heart strain, ratio of right ventricle to left ventricle measures less than 1. MEDIASTINUM: Unremarkable. No mediastinal or hilar adenopathy. Esophagus is unremarkable. No hiatal hernia. THYROID: Unremarkable. No thyroid lesions. BONES/JOINTS: There are multi-level degenerative changes of the thoracic spine. No suspicious lytic or blastic abnormality. CT/CTA Chest W/WO Contrast IMPRESSION: No demonstrated pulmonary embolism or arterial dissection. Electronically Signed: Jose Iglesias MD at 21:19 EDT ,
[2022-07-14 21:46] LABS: Reflex Troponin-HS? (from REC) Y
[2022-07-14 22:24] LABS: Troponin-I HS 4 pg/mL (3.0-54.0)
== END 2022-07-14 23:45 | disposition home or self-care (01) ==
PROVIDERS: Emergency Provider Emergency Medicine; PCP Family Medicine; Visit Provider Emergency Medicine
DX: R07.9 Chest pain, unspecified (principal); E66.01 Morbid (severe) obesity due to excess calories; Z68.43 Body mass index [BMI] 50.0-59.9, adult; R06.02 Shortness of breath; M25.561 Pain in right knee; K21.9 Gastro-esophageal reflux disease without esophagitis
CPT/HCPCS: 71045; 71275; 80048; 84484; 85025; 85379; 93005; 93970; 99285; Q9967; A4216

== ENCOUNTER 2022-09-18 17:39 | Emergency (ER) | payer MEDICARE, MEDICAID, SELFPAY ==
[2022-09-18 17:40] VITALS: BP 112/76; PULSE 86; RESP 17; TEMP 36.8; O2SAT 99
--- NOTE | 2022-09-18 17:50 | ED.RN ---
AFTER BEING TRIAGED PT STATES SHE REMEMBERS BEING AT THE CLINIC, HAD BLOOD DRAWN AND WAS WAITING IN A CHAIR AND HAD AN ABSENT SEIZURE. STILL UNSURE HOW LONG IT LASTED. NEXT THING SHE REMEMBERS WAS THE [place] PEOPLE SHOWING UP. SIMILAR TO OTHERS SHE HAS HAD.
[2022-09-18 19:47] LABS: Absolute Lymphocyte Count 1.89 X10^3/uL (0.83-4.51); Basophil# 0.01 X10^3/uL; Basophil% 0.1 % (0-1); Hematocrit 44.1 % (37-47); Hemoglobin 13.4 g/dL (12.0-15.0); Lymphocyte # 1.89 X10^3/ul (0.83-4.51); Lymphocyte % 17.4 % (19-41); Mean Corp Hgb Conc 30.4 g/dL (32-36); Mean Corpuscular Hgb 28.6 pg (27.0-32.0); Mean Corpuscular Volume 94.2 fL (81-99); Mean Platelet Vol. 10.1 fl (6.2-12.0); Monocyte# 0.93 X10^3/uL; Monocyte% 8.6 % (0-10); NRBC Flagged by Analyzer 0 % (0-5); Neutrophil # 7.96 X10^3/uL (2.7-7.7); Neutrophil % 73.4 % (47-70); Platelet Count 253 K/mm3 (150-450); RBC Distribution Width CV 13.4 % (11.6-14.6); RBC Distribution Width SD 46.7 fl (35.1-43.9); Red Blood Count 4.68 M/mm3 (4.2-5.4); White Blood Count 10.8 K/mm3 (4.4-11.0)
[2022-09-18 20:02] LABS: Anion Gap 7 (5-15); BUN 10 mg/dL (7-18); BUN/Creat Ratio 13.2 RATIO (10-20); Calcium,Total 7.5 mg/dL (8.5-10.1); Chloride 120 mmol/L (98-107); Creatinine, Serum 0.76 mg/dL (0.55-1.02); EST Glomerular Filtration Rate 90 mL/min (>60); Est Glom Filt Rate - Afr Amer 109 mL/min (>60); Glucose 83 mg/dL (74-106); Potassium 3.3 mmol/L (3.5-5.1); Sodium Level 146 mmol/L (136-145)
--- NOTE | 2022-09-18 23:37 | EDS_ITS ---
HPI History of Present Illness Chief Complaint: Seizure Informant: patient Onset/Context/Timing Onset: Today Context: Sudden Onset Timing: Intermittent and Lasts (Few minutes) Quality: Blacked out Location: Generalized Worsened by: Nothing Relieved by: Nothing Narrative Narrative: Patient presents with a seizure that occurred today. Patient states she was at her doctor's appointment today when she had a seizure. Patient states it only lasted a few minutes. Patient states she just blacked out. Patient denies shaking. Patient does not remember any of the events around the seizure. Patient was not incontinent of stool or urine. Patient denies biting her ton eddy. Patient states she has a history of similar seizures. Patient states she has been compliant with her medications. Patient states she has not missed any doses of her medications. [facility] Medical History Abnormal stress test Adjustment disorder with depressed mood Chest pain Chronic factitious illness with physical symptoms Conversion disorder Generalized seizure disorder GERD (gastroesophageal reflux disease) History of asthma History of mental retardation Myalgia and myositis PCOS (polycystic ovarian syndrome) Schizophrenia Seizure Home Medications cetirizine 10 mg tablet 10 mg PO DAILY 02/11/19 [History Last Taken Unknown] iloperidone 4 mg tablet 4 mg PO QHS BIPOLAR 02/11/19 [History Last Taken 06/02/19] lacosamide 200 mg tablet 400 mg PO BID SEIZURES 02/11/19 [History Last Taken 06/03/19] multivitamin 1 tab PO DAILY 02/11/19 [History Last Taken 06/03/19] topiramate 200 mg tablet (Topamax) 400 mg PO BID SEIZURES 02/11/19 [History Last Taken 06/03/19] citalopram 20 mg tablet 20 mg PO DAILY 02/23/19 [History Last Taken 06/03/19] albuterol sulfate 90 mcg/actuation aerosol inhaler 2 puff inhalation Q4H PRN PRN Wheezing ##1 05/07/19 [Rx Last Taken 05/29/19] paliperidone palmitate 234 mg/1.5 mL intramuscular syringe 234 mg IM QMONTH 06/03/19 [History Last Taken 05/25/19] ibuprofen 600 mg tablet 600 mg PO Q6H PRN PRN Pain 1-10 Or Fever #20 tabs 06/16/20 [Rx Last Taken Unknown] benztropine 1 mg tablet 1 mg PO .COMPLEX 01/30/22 [History Last Taken Unknown] levetiracetam 500 mg tablet 750 mg PO BID 01/30/22 [History Last Taken Unknown] montelukast 10 mg tablet 10 mg PO DAILY 01/30/22 [History Last Taken Unknown] zonisamide 100 mg capsule 200 mg PO BID 01/30/22 [History Last Taken Unknown] benzonatate 100 mg capsule 200 mg PO TID PRN cough #30 caps 02/11/22 [Rx Last Taken Unknown] ibuprofen 200 mg capsule 200 mg PO Q6H PRN pain #30 caps 02/11/22 [Rx Last Taken Unknown] metoprolol tartrate 50 mg tablet 50 mg PO .COMPLEX #2 tabs 02/18/22 [Rx Last Taken Unknown] prednisone 20 mg tablet 60 mg PO DAILY #15 tabs 04/25/22 [Rx Last Taken Unknown] amoxicillin 875 mg tablet 875 mg PO BID 09/18/22 [History Last Taken Unknown] Allergy/AdvReac Type Severity Reaction Status Date / Time acetaminophen Allergy Intermediate seizure Verified 09/18/22 17:43 [From Vicks DayQuil] chlorpheniramine Allergy Intermediate seizure Verified 09/18/22 17:43 [From [employer] DayQuil] dextromethorphan Allergy Intermediate seizure Verified 09/18/22 17:43 [From Vicks DayQuil] phenylpropanolamine Allergy Intermediate seizure Verified 09/18/22 17:43 [From [employer] DayQuil] pseudoephedrine Allergy Intermediate seizure Verified 09/18/22 17:43 [From Vicks DayQuil] azithromycin Allergy Other Verified 09/18/22 17:43 [From Zithromax Z-Johnny] cephalexin Allergy Unknown Verified 09/18/22 17:43 doxycycline Allergy Nausea Verified 09/18/22 17:43 guaifenesin [From Mucinex] Allergy Other Verified 09/18/22 17:43 latex Allergy Rash Verified 09/18/22 17:43 oseltamivir [From Tamiflu] Allergy Unknown Verified 09/18/22 17:43 risperidone [From Risperdal] Allergy Other Verified 09/18/22 17:43 strawberry Allergy Hives Verified 09/18/22 17:43 topiramate Allergy Unknown Verified 09/18/22 17:43 valdecoxib [From Bextra] Allergy Rash Verified 09/18/22 17:43 Family History Mother Asthma Father Heart disease Seizures Brother Seizures Sister Myocardial infarction Heart disease Seizures Grandmother Diabetes CVA (cerebral vascular accident) no surgical history Social History Smoking Status: Never smoker alcohol intake: never substance use type: does not use caffeine: No ROS ROS ED Constitutional Constitutional ED: Denies chills or fever(s) Eyes Eyes: Denies blurry vision or change in vision ENT ENT ED: Denies rhinorrhea or sore throat Cardiovascular Cardiovascular: Reports chest pain; Denies palpitations Respiratory/Chest Respiratory/Chest: Denies cough or dyspnea Gastrointestinal Gastrointestinal: Denies nausea or vomiting Genitourinary Genitourinary ED: Denies dysuria or hematuria Musculoskeletal Musculoskeletal: Denies back pain or neck pain Integumentary Denies abscess or rash Neurologic Neurologic: Denies headache(s) or weakness Allergic/Immunologic Allergic/Immunologic ED: Denies mouth swelling or urticaria EXAM Physical Exam Const Vital Signs: 09/18/22 17:40 Temperature 98.2 F Temperature Source Temporal Pulse Rate 86 Respiratory Rate 17 Blood Pressure 112/76 Blood Pressure Mean 88 Pulse Ox 99 Oxygen Delivery Method Room Air Positive well nourished and well developed General Appearance ED: well developed HEENT Reports moist mucous membranes Neck supple and no JVD Resp normal respiratory effort and clear to auscultation bilaterally Cardio regular rate, regular rhythm and no murmurs GI normal to inspection, nondistended, normoactive bowel sounds and non-tender Palpation: soft Extremity normal to inspection General Extremety ED: Negative for edema or tenderness General Extremity: Negative for edema Neuro oriented x3, CN's II-XII intact bilaterally and no sensory deficits noted Sensorium / Orientation: alert Motor Exam: strength 5/5 throughout Psych mental status grossly normal Skin no rashes or lesions noted MDM MDM MDM Narrative Medical decision making narrative: Differential diagnosis includes breakthrough seizure, pseudoseizure, syncope, anemia, electrolyte abnormality, and anxiety. CBC will be obtained to assess for leukocytosis and anemia. Basic metabolic profile will be obtained to assess for electrolyte abnormality and renal function. Patient is not on any antiepileptics which are amenable to blood levels. Lab Data Attestation: I reviewed the patient's lab results. Lab results narrative: CBC was reviewed and was within normal limits. Basic metabolic profile was reviewed. There is a mild hypernatremia of 146 and a hyperchloremia of 120. There is a mild hypokalemia of 3.3. The remainder is essentially within normal limits. Anion gap was normal. Labs: Laboratory Results - last 24 hr 09/18/22 09/18/22 19:40 19:40 WBC 10.8 RBC 4.68 Hgb 13.4 Hct 44.1 MCV 94.2 MCH 28.6 MCHC 30.4 L RDW Std Deviation 46.7 H RDW Coeff of Zahra 13.4 Plt Count 253 MPV 10.1 Immature Gran % (Auto) 0.500 Neut % (Auto) 73.4 H Lymph % (Auto) 17.4 L [place] % (Auto) 8.6 Eos % (Auto) 0.0 Baso % (Auto) 0.1 Absolute Neuts (auto) 8.0 H Absolute Lymphs (auto) 1.89 Nucleated RBC % 0 Sodium 146 H Potassium 3.3 L Chloride 120 H Carbon Dioxide 19.0 L Anion Gap 7 BUN 10 Creatinine 0.76 Est GFR (MDRD) Af Amer 109 Est GFR (MDRD) Non-Af 90 BUN/Creatinine Ratio 13.2 Glucose 83 Calcium 7.5 L Treatment and Re-Evaluation :: Patient had no further seizure activity here. Patient was advised of her findings. Patient was instructed to follow-up with her primary care physician and neurologist in 5 to 7 days. Patient was instructed return if worse in any way. Patient understood and was agreeable with the plan. All questions were answered. Discharge Plan Triage Chief Complaint: Seizure ED Provider: Harry Arreola Dx/Rx/DC Orders Clinical Impression: Breakthrough seizure, Generalized seizure disorder Instructions: ED Seizure, Recurrent (Adult) Prescriptions: No Action citalopram 20 mg tablet 20 mg PO DAILY benztropine 1 mg tablet 1 mg PO .COMPLEX Rx Instructions: 1 mg orally 1 and 1/2 tab by mouth in the am and 1 tab by mouth pm; cetirizine 10 mg tablet 10 mg PO DAILY iloperidone 4 mg tablet 4 mg PO QHS topiramate [Topamax] 200 mg tablet 400 mg PO BID Rx Instructions: Must be BRAND name lacosamide 200 mg tablet 400 mg PO BID multivitamin Tablet 1 tab PO DAILY zonisamide 100 mg capsule 200 mg PO BID levetiracetam 500 mg tablet 750 mg PO BID montelukast 10 mg tablet 10 mg PO DAILY benzonatate 100 mg capsule 200 mg PO TID PRN (Reason: cough) Qty: 30 0RF ibuprofen 200 mg capsule 200 mg PO Q6H PRN (Reason: pain) Qty: 30 0RF albuterol sulfate 1 INHALER inhaler 2 puff inhalation Q4H PRN PRN (Reason: Wheezing) Qty: 1 0RF paliperidone palmitate 234 mg/1.5 mL syringe 234 mg IM QMONTH ibuprofen 600 MG tablet 600 mg PO Q6H PRN PRN (Reason: Pain 1-10 Or Fever) Qty: 20 0RF prednisone 20 mg tablet 60 mg PO DAILY Qty: 15 0RF amoxicillin 875 mg tablet 875 mg PO BID Label Comments: Take 1 tablet by mouth twice daily for 10 days. metoprolol tartrate 50 mg tablet 50 mg PO .COMPLEX Qty: 2 0RF Rx Instructions: 50 mg orally take 1 tab by mouth the night before scan and then take 1 tab by mouth 1 hour prior to scan; Primary Care Provider: Kenneth Tan Referrals: Kenneth Tan MD [Primary Care Provider] - 5-7 Days Disposition Disposition: Home, Self Care Discharge Date/Time: 09/18/22 20:53
== END 2022-09-18 20:53 | disposition home or self-care (01) ==
PROVIDERS: Emergency Provider Emergency Medicine; PCP Family Medicine; Visit Provider Emergency Medicine
DX: G40.409 Other generalized epilepsy and epileptic syndromes, not intractable, without status epilepticus (principal); R07.9 Chest pain, unspecified
CPT/HCPCS: 80048; 85025; 99285; A4216

== ENCOUNTER → 2023-02-24 | Outpatient (CLI) | payer MEDICARE, MEDICAID, SELFPAY | END | disposition home or self-care (01) | LOC: SL 20:38 | PROVIDERS: PCP Family Medicine; Referring Provider Internal Medicine Critical Care Medicine; Visit Provider Internal Medicine Critical Care Medicine | DX: G47.10 Hypersomnia, unspecified (principal) | CPT/HCPCS: 95810 ==

== ENCOUNTER → 2023-02-25 | Outpatient (CLI) | payer MEDICARE, MEDICAID, SELFPAY ==
--- NOTE | 2023-02-25 13:08 | CPS ---
Pt refused to wear the nose clips. Pt was informed that the PFT would not be done unless she place the nose clips on. Pt refused to do PFT.
== END | disposition home or self-care (01) ==
LOC: PSN 12:47
PROVIDERS: PCP Family Medicine; Referring Provider Internal Medicine Critical Care Medicine; Visit Provider Internal Medicine Critical Care Medicine
DX: R06.02 Shortness of breath (principal)

== ENCOUNTER → 2023-02-26 | Outpatient (CLI) | payer MEDICARE, MEDICAID, SELFPAY ==
[2023-02-26 13:12] VITALS: PULSE 101; PULSE 105; PULSE 112; PULSE 113; PULSE 88; PULSE 91; PULSE 92; PULSE 97; O2SAT 95; O2SAT 97; O2SAT 98
--- NOTE | 2023-02-27 07:17 | PCM.PSN.6M ---
PSN 6 Minute Walk Test 6 Minute Walk Test 6 Minute Walk Test: 6 Minute Walk Test PSN:6-Minute Walk Test Start: 02/26/23 13:12 Freq: Status: Active Protocol: [id number].6MINW Document 02/26/23 13:12 JR (Rec: 02/26/23 13:15 JR [id number]) 6 Minute Walk Test Date Performed 02/26/23 Time Performed 13:00 Height 5 ft 6 in Weight: 154.221 kg Weight in Pounds 340.[address]: Gerber [place] Assistive device used: None Pre-test Oxygen Delivery Method Room Air Pulse Ox 97 Pulse Rate (60-100) 101 H Dyspnea Shanon Scale (0-10) 2 Exertion Shanon Scale (6-20) 6 1st minute Oxygen Delivery Method Room Air Pulse Ox 95 Pulse Rate (60-100) 105 H 2nd minute Oxygen Delivery Method Room Air Pulse Ox 95 Pulse Rate (60-100) 113 H 3rd minute Oxygen Delivery Method Room Air Pulse Ox 97 Pulse Rate (60-100) 112 H Dyspnea Shanon Scale (0-10) 5 Exertion Shanon Scale (6-20) 13 4th minute Oxygen Delivery Method Room Air Pulse Ox 98 Pulse Rate (60-100) 97 5th minute Oxygen Delivery Method Room Air Pulse Ox 98 Pulse Rate (60-100) 92 6th minute Oxygen Delivery Method Room Air Pulse Ox 98 Pulse Rate (60-100) 91 Post-test Oxygen Delivery Method Room Air Pulse Ox 98 Pulse Rate (60-100) 88 Full Laps Walked 4 Partial Lap, Number of Tiles Walked 0 Total Distance Walked (ft) 236 Interpretation Interpretation: The patient was able to ambulate only 236 feet over the course of 3 minutes. Patient was noted to have a saturation of 97% with a heart rate of 101 at rest, but increased to 113 with minimal exertion. Patient remained seated for the remainder of the past. Patient did not have any significant change in saturations, but did have rapidly induced tachycardia consistent with a cardiovascular limitation exercise tolerance. Recommendations Recommendations: No supplemental oxygen is indicated at this time. However, testing may need to be repeated if patient's exercise tolerance improves.
== END | disposition home or self-care (01) ==
LOC: PSN 12:49
PROVIDERS: PCP Family Medicine; Referring Provider Internal Medicine Critical Care Medicine; Visit Provider Internal Medicine Critical Care Medicine
DX: R06.02 Shortness of breath (principal); G47.33 Obstructive sleep apnea (adult) (pediatric)
CPT/HCPCS: 94618; 95810

== ENCOUNTER 2023-05-14 14:35 | Emergency (ER) | payer MEDICARE, MEDICAID, SELFPAY ==
[2023-05-14 14:36] VITALS: BP 117/80; PULSE 83; RESP 20; TEMP 36.6; O2SAT 97
[2023-05-14 14:38] VITALS: BP 117/80
--- NOTE | 2023-05-14 15:34 | ED.VIS.CHEST ---
HPI History of Present Illness Chief Complaint: Chest Pain Informant: patient Onset/Context/Timing Onset: Days Narrative Narrative: Patient presents secondary to chest pain. She describes pressure and sharp chest pain just to the left of the sternum. She states it feels better when she puts her hands on her chest and pushes. She has had longstanding chest pain that she states was resolved for some time and then now has returned the last couple days. She has also had subjective fevers at home with occasional shortness of breath and cough with green sputum. It appears the patient had an abnormal stress test in the past but had a CT angio of her coronary arteries that was completely normal. [facility] Medical History Abnormal stress test Acute bilateral otitis media Acute bronchitis Adjustment disorder with depressed mood Chest pain Chronic factitious illness with physical symptoms Conversion disorder Dyspnea on exertion Generalized seizure disorder GERD (gastroesophageal reflux disease) History of asthma History of mental retardation Myalgia and myositis PCOS (polycystic ovarian syndrome) PND (paroxysmal nocturnal dyspnea) Schizophrenia Seizure Home Medications cetirizine 10 mg tablet 10 mg PO DAILY 02/11/19 [History Last Taken Unknown] iloperidone 4 mg tablet 4 mg PO QHS BIPOLAR 02/11/19 [History Last Taken 06/02/19] lacosamide 200 mg tablet 400 mg PO BID SEIZURES 02/11/19 [History Last Taken 06/03/19] multivitamin 1 tab PO DAILY 02/11/19 [History Last Taken 06/03/19] topiramate 200 mg tablet (Topamax) 400 mg PO BID SEIZURES 02/11/19 [History Last Taken 06/03/19] citalopram 20 mg tablet 20 mg PO DAILY 02/23/19 [History Last Taken 06/03/19] albuterol sulfate 90 mcg/actuation aerosol inhaler 2 puff inhalation Q4H PRN PRN Wheezing ##1 05/07/19 [Rx Last Taken 05/29/19] paliperidone palmitate 234 mg/1.5 mL intramuscular syringe 234 mg IM QMONTH 06/03/19 [History Last Taken 05/25/19] ibuprofen 600 mg tablet 600 mg PO Q6H PRN PRN Pain 1-10 Or Fever #20 tabs 06/16/20 [Rx Last Taken Unknown] benztropine 1 mg tablet 1 mg PO .COMPLEX 01/30/22 [History Last Taken Unknown] levetiracetam 500 mg tablet 750 mg PO BID 01/30/22 [History Last Taken Unknown] montelukast 10 mg tablet 10 mg PO DAILY 01/30/22 [History Last Taken Unknown] zonisamide 100 mg capsule 200 mg PO BID 01/30/22 [History Last Taken Unknown] benzonatate 100 mg capsule 200 mg (2 x 100 mg) PO TID PRN cough #30 caps 02/11/22 [Rx Last Taken Unknown] ibuprofen 200 mg capsule 200 mg PO Q6H PRN pain #30 caps 02/11/22 [Rx Last Taken Unknown] Allergy/AdvReac Type Severity Reaction Status Date / Time chlorpheniramine Allergy Intermediate seizure Verified 05/14/23 14:36 [From [employer] DayQuil] dextromethorphan Allergy Intermediate seizure Verified 05/14/23 14:36 [From [employer] DayQuil] phenylpropanolamine Allergy Intermediate seizure Verified 05/14/23 14:36 [From [employer]icks DayQuil] pseudoephedrine Allergy Intermediate seizure Verified 05/14/23 14:36 [From [employer] DayQuil] azithromycin Allergy Other Verified 05/14/23 14:36 [From Zithromax Z-Johnny] cephalexin Allergy Unknown Verified 05/14/23 14:36 doxycycline Allergy Nausea Verified 05/14/23 14:36 guaifenesin [From Mucinex] Allergy Other Verified 05/14/23 14:36 latex Allergy Rash Verified 05/14/23 14:36 oseltamivir [From Tamiflu] Allergy Unknown Verified 05/14/23 14:36 risperidone [From Risperdal] Allergy Other Verified 05/14/23 14:36 strawberry Allergy Hives Verified 05/14/23 14:36 valdecoxib [From Bextra] Allergy Rash Verified 05/14/23 14:36 Family History Mother Asthma Father Heart disease Seizures Brother Seizures Sister Myocardial infarction Heart disease Seizures Grandmother Diabetes CVA (cerebral vascular accident) Social History Smoking Status: Never smoker alcohol intake: never substance use type: does not use caffeine: Yes Type: carbonated beverages ROS ROS ED Constitutional Constitutional ED: Denies chills or fever(s) Eyes Eyes: Denies discharge from eye(s) ENT ENT ED: Denies discharge from eye(s), rhinorrhea or sore throat Cardiovascular Cardiovascular: Reports chest pain; Denies palpitations Respiratory/Chest Respiratory/Chest: Reports cough and dyspnea Gastrointestinal Gastrointestinal: Denies abdominal pain, diarrhea, nausea or vomiting Genitourinary Genitourinary ED: Denies dysuria Musculoskeletal Musculoskeletal: Reports extremity pain; Denies back pain Integumentary Denies Abrasions or rash Neurologic Neurologic: Denies headache(s) or weakness Psychiatric Psychiatric: Denies anxiety or depression Allergic/Immunologic Allergic/Immunologic ED: Denies lip swelling or urticaria EXAM Physical Exam Const Vital Signs: 05/14/23 14:36 05/14/23 14:38 05/14/23 15:15 Temperature 97.9 F Temperature Source Temporal Pulse Rate 83 Respiratory Rate 20 H Respiratory Effort Normal Blood Pressure 117/80 117/80 Blood Pressure Mean 92 92 Pulse Ox 97 Oxygen Delivery Method Room Air 05/14/23 15:15 05/14/23 16:34 05/14/23 17:28 Temperature Temperature Source Pulse Rate 84 65 Respiratory Rate 18 16 Respiratory Effort Blood Pressure 118/70 Blood Pressure Mean 86 Pulse Ox 97 99 Oxygen Delivery Method Room Air Room Air Room Air Positive obese Nutritional Appearance: obese HEENT Reports moist mucous membranes Eyes EOMs intact bilaterally Chest Wall inspection of chest normal and palpation of chest normal Resp normal respiratory effort and clear to auscultation bilaterally Cardio regular rate and regular rhythm GI soft to palpation and non-tender Extremity Extremity Narrative: Mild diffuse tenderness to the right leg. (Patient reports pain x 1 year since falling down steps) 2+ bilateral extremity edema, symmetric. 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 EKG obtained to evaluate for cardiac arrhythmia/ischemia. Chest x-ray obtained to evaluate for acute lung pathology, cardiac size, or mediastinal abnormality. IV line established. Labwork obtained to evaluate for leukocytosis, anemia, and electrolyte derangement. Swab for COVID, influenza, and RSV obtained. History & Record Review Discussion w/independent historian: Patient Additional record(s) reviewed:: Prior inpatient record, Prior outpatient record, Prior ED visit and Prior labs Lab Data Attestation: I reviewed the patient's lab results. Labs: Laboratory Results - last 24 hr 05/14/23 05/14/23 15:45 17:50 WBC 10.7 RBC 4.92 Hgb 14.2 Hct 46.1 MCV 93.7 MCH 28.9 MCHC 30.8 L RDW Std Deviation 44.9 H RDW Coeff of Zahra 13.1 Plt Count 264 MPV 9.9 Immature Gran % (Auto) 0.500 Neut % (Auto) 71.7 H Lymph % (Auto) 19.4 [place] % (Auto) 8.3 Eos % (Auto) 0.0 Baso % (Auto) 0.1 Absolute Neuts (auto) 7.7 Absolute Lymphs (auto) 2.08 Nucleated RBC % 0 D-Dimer Quant (PE/DVT) 0.35 Sodium 139 Potassium 3.8 Chloride 110 H Carbon Dioxide 24.0 Anion Gap 5 BUN 9 Creatinine 0.95 Est GFR (MDRD) Af Amer 83 Est GFR (MDRD) Non-Af 69 BUN/Creatinine Ratio 9.4 L Glucose 99 Calcium 9.4 Troponin I High Sens 5 4 Radiography Chest X-Ray - ED: 1 View, Read by ED Physician, Chronic Changes and No Infiltrates Diagnostic Testing: Clinical Impression(s) from Imaging Studies Chest X-Ray 05/14/23 16:05 IMPRESSION: Normal x-ray examination of the chest. Electronically Signed: Leon Del Valle MD at 16:12 EST , EKG Initial EKG: Attestation: I personally reviewed and interpreted this EKG as follows: Interpretation: Sinus Rhythm (Sinus at 91 with no acute ischemia.) Treatment and Re-Evaluation :: CBC was normal white count at 10.7 with normal differential. Hemoglobin is 14.2. Chemistry studies unremarkable with normal renal function. Glucose is 99. D-dimer is normal at 0.35. Initial troponin is 5 with a 2-hour repeat troponin of 4. Portable chest x-ray per my interpretation was chronic changes with no focal infiltrate. Radiology interpretation reviewed and agrees. EKG is sinus with no evidence of ischemia. Swab for COVID, influenza, and RSV is negative. Test results discussed with the patient. I believe she likely has a viral URI as she has had cough and subjective fever. I do not see evidence of infiltrate do not patient is an antibiotic. I think she likely has some chest wall irritation from this. Patient be given return instructions. Discharge Plan Triage Chief Complaint: Chest Pain ED Provider: Justine Trinidad Dx/Rx/DC Orders Clinical Impression: URI (upper respiratory infection), Chest pain Instructions: ED Chest Pain, Noncardiac, ED URI, Viral, No Abx (Adult) Prescriptions: No Action citalopram 20 mg tablet 20 mg PO DAILY benztropine 1 mg tablet 1 mg PO .COMPLEX Rx Instructions: 1 mg orally 1 and 1/2 tab by mouth in the am and 1 tab by mouth pm; cetirizine 10 mg tablet 10 mg PO DAILY iloperidone 4 mg tablet 4 mg PO QHS topiramate [Topamax] 200 mg tablet 400 mg PO BID Rx Instructions: Must be BRAND name lacosamide 200 mg tablet 400 mg PO BID multivitamin Tablet 1 tab PO DAILY zonisamide 100 mg capsule 200 mg PO BID levetiracetam 500 mg tablet 750 mg PO BID montelukast 10 mg tablet 10 mg PO DAILY benzonatate 100 mg capsule 200 mg PO TID PRN (Reason: cough) Qty: 30 0RF ibuprofen 200 mg capsule 200 mg PO Q6H PRN (Reason: pain) Qty: 30 0RF albuterol sulfate 1 INHALER inhaler 2 puff inhalation Q4H PRN PRN (Reason: Wheezing) Qty: 1 0RF paliperidone palmitate 234 mg/1.5 mL syringe 234 mg IM QMONTH ibuprofen 600 MG tablet 600 mg PO Q6H PRN PRN (Reason: Pain 1-10 Or Fever) Qty: 20 0RF Primary Care Provider: Kenneth Tan Referrals: Kenneth Tan MD [Primary Care Provider] - 1 Week if not improving Disposition Disposition: Home, Self Care
[2023-05-14] MEDS: Ketorolac 15 MG/ML Vial IV (15:51)
[2023-05-14] MEDS: 0.9% Normal Saline (1000mL) 1,000 ML 150 ML IV (15:52)
[2023-05-14 16:00] LABS: Absolute Lymphocyte Count 2.08 X10^3/uL (0.83-4.51); Absolute Neutrophil Count 7.7 X10^3/uL (2.0-7.7); Basophil# 0.01 X10^3/uL; Basophil% 0.1 % (0-1); Hematocrit 46.1 % (37-47); Hemoglobin 14.2 g/dL (12.0-15.0); Lymphocyte # 2.08 X10^3/ul (0.83-4.51); Lymphocyte % 19.4 % (19-41); Mean Corp Hgb Conc 30.8 g/dL (32-36); Mean Corpuscular Hgb 28.9 pg (27.0-32.0); Mean Corpuscular Volume 93.7 fL (81-99); Mean Platelet Vol. 9.9 fl (6.2-12.0); Monocyte# 0.89 X10^3/uL; Monocyte% 8.3 % (0-10); NRBC Flagged by Analyzer 0 % (0-5); Neutrophil # 7.68 X10^3/uL (2.7-7.7); Neutrophil % 71.7 % (47-70); Platelet Count 264 K/mm3 (150-450); RBC Distribution Width CV 13.1 % (11.6-14.6); RBC Distribution Width SD 44.9 fl (35.1-43.9); Red Blood Count 4.92 M/mm3 (4.2-5.4); White Blood Count 10.7 K/mm3 (4.4-11.0)
--- NOTE | 2023-05-14 16:05 | RAD_ITS ---
STUDY: X-RAY CHEST REASON FOR EXAM: Female, 42 years old. Atypical chest pain TECHNIQUE: Single AP portable view of the chest. COMPARISON: None. FINDINGS: EKG leads overlie the chest The lungs are clear and expanded. There is no demonstrated pleural abnormality. Normal size heart. Normal mediastinum and carly. Normal visualized pulmonary arteries. Normal visualized aortic arch and descending thoracic aorta. Normal visualized thoracic spine. Normal visualized ribs, clavicles, and shoulders. There is no demonstrated abnormality of the visualized soft tissue structures of the upper abdomen. RAD/Chest 1 View (Portable) IMPRESSION: Normal x-ray examination of the chest. Electronically Signed: Leon Del Valle MD at 16:12 EST ,
[2023-05-14 16:16] LABS: Anion Gap 5 (5-15); BUN 9 mg/dL (7-18); BUN/Creat Ratio 9.4 RATIO (10-20); Calcium,Total 9.4 mg/dL (8.5-10.1); Chloride 110 mmol/L (98-107); Creatinine, Serum 0.95 mg/dL (0.55-1.02); EST Glomerular Filtration Rate 69 mL/min (>60); Est Glom Filt Rate - Afr Amer 83 mL/min (>60); Glucose 99 mg/dL (74-106); Potassium 3.8 mmol/L (3.5-5.1); Sodium Level 139 mmol/L (136-145); Troponin-I HS (w/2H Reflex) 5 pg/mL (3.0-54.0)
[2023-05-14 16:17] LABS: D-Dimer Quantitative (DVT/PE) 0.35 FEU/ug/m (0.27-0.49)
[2023-05-14 16:34] VITALS: BP 118/70; PULSE 84; RESP 18; O2SAT 97
--- OUTSIDE RECORDS SUMMARY | 2023-05-14 16:34 | XMS RPT_ITS | CCD ---
Author Name Unknown Address [id number] [place] [address] Organization [facility] Care Team Providers Care Towel Inspector Name Role Phone Daniel Chun MD Primary Care Provider DANIEL CHUN Primary Care Unavailable JESS JAMES Attending Unavailable DANIEL CHUN Primary Care Unavailable DANIEL CHUN Attending Unavailable DANIEL CHUN Primary Care Unavailable DANIEL CHUN Referring Unavailable DANIEL CHUN Primary Care Unavailable SILAS LEWIS Attending Unavailable DANIEL CHUN Primary Care Unavailable SILAS LEWIS Attending Unavailable DANIEL CHUN Primary Care Unavailable DANIEL CHUN Primary Care Unavailable SILAS LEWIS Referring Unavailable DANIEL CHUN Primary Care Unavailable SILAS LEWIS Referring Unavailable DANIEL CHUN Primary Care Unavailable DANIEL CHUN Primary Care Unavailable DANIEL CHUN Attending Unavailable DANIEL CHUN Referring Unavailable DANIEL CHUN Primary Care Unavailable DANIEL CHUN Primary Care Unavailable JESS JAMES Attending Unavailable DANIEL CHUN Primary Care Unavailable WILMAR POLANCO Attending Unavailable SILAS LEWIS Referring Unavailable DANIEL CHUN Primary Care Unavailable WILMAR POLANCO Referring Unavailable DANIEL CHUN Primary Care Unavailable SLIAS LEWIS Attending Unavailable Allergies Allergy Classification Reported Allergen(s) Allergy Type Date of Onset Reaction(s) Facility (20 sources) Acetaminophen / Dextromethorphan / guaiFENesin / Pseudoephedrine; Translations: [[id number] TAMINOPHEN] Drug Allergy 09-28-19 13 Other: See Comments [facility] Work Phone: (20 sources) Azithromycin; Translations: [AZITHROMYCIN] Drug Allergy 10-28-19 13 GI Upset [facility] Work Phone: (20 sources) Cephalexin; Translations: [CEPHALEXIN] Drug Allergy 12-31-19 05 Intolerance [facility] Work Phone: (20 sources) Dextromethorphan / guaiFENesin; Translations: [DEXTROMETHORPHAN- AIFENESIN] Drug Allergy 02-13-20 09 Intolerance [facility] (20 sources) Doxycycline; Translations: [DOXYCYCLINE] Drug Allergy 07-23-19 09 GI Upset [facility] (20 sources) Latex; Translations: [LATEX] Propensity to adverse reactions 08-22-19 06 [facility] Work Phone: (20 sources) Oseltamivir; Translations: [OSELTAMIVIR PHOSPHATE] Drug Allergy 05-17-19 13 Other: See Comments [facility] Work Phone: (20 sources) risperiDONE; Translations: [RISPERIDONE] Drug Allergy 09-29-19 13 Other: See Comments [facility] Work Phone: (20 sources) Levelock; Translations: [STRAWBERRIES] Food Allergy 11-11-19 17 Hives [facility] Work Phone: (20 sources) topiramate; Translations: [TOPIRAMATE] Drug Allergy 06-04-19 13 Other: See Comments [facility] Work Phone: (20 sources) valdecoxib; Translations: [VALDECOXIB] Drug Allergy 12-31-19 05 [facility] Medications Current Medications Medication Drug Class(es) Dates Sig (Normalized) Sig (Original) [id number] 200 actuat albuterol 0.09 mg/actuat metered dose inhaler (20 sources) beta2-Adrenergic Agonist Start: 03-20-2023 End: 04-19-2023 take 2 puff(s) by inhalation every four hours as needed for wheezing albuterol HFA (VENTOLIN HFA) 90 mcg/actuation inhaler Indications: Moderate persistent asthma with acute exacerbation Inhale 2 Puffs as instructed every 4 hours as needed for wheezing/shortness of breath. 1 Each 4 03/20/2023 04/19/2023 Active Completed/Discontinued Medications Medication Drug Class(es) Dates Sig (Normalized) Sig (Original) amoxicillin 875 mg oral tablet (7 sources) Penicillin-class Antibacterial Start: 01-30-2023 End: 02-09-2023 take 1 tablet by mouth twice daily amoxicillin (AMOXIL) 875 mg tablet Indications: Sinobronchitis Take 1 tablet by mouth two times a day for 10 days. 20 tablet 0 01/30/2023 02/09/2023 Problems Active Problems Problem Classification Problem Date Documented Date Episodic/Chronic Adjustment disorders (20 sources) Adjustment disorder with depressed mood; Translations: [Adjustment disorder with depressed mood] 02-11-2005 Chronic Asthma (20 sources) Exacerbation of moderate persistent asthma; Translations: [Moderate persistent asthma with (acute) exacerbation] Onset: 7 Chronic Epilepsy; convulsions (20 sources) Seizure disorder; Translations: [Epilepsy, unspecified, not intractable, without status epilepticus] Onset: 2 09-26-2011 Chronic Esophageal disorders (20 sources) Gastroesophageal reflux disease; Translations: [Gastro-esophageal reflux disease without esophagitis] 02-11-2005 Chronic Genitourinary symptoms and ill-defined conditions (20 sources) Incontinence; Translations: [Mixed incontinence] Onset: 6 09-24-2005 Chronic Immunizations and screening for infectious disease (1 source) Suspected disease caused by 2019-nCoV; Translations: [Suspected COVID-19 virus infection] Episodic Miscellaneous mental health disorders (20 sources) Psychologic conversion disorder; Translations: [Dissociative and conversion disorder, unspecified] Onset: 5 02-11-2005 Chronic Osteoarthritis (1 source) Arthritis of knee; Translations: [Unilateral primary osteoarthritis, unspecified knee] Chronic Other acquired deformities (2 sources) Curvature of spine; Translations: [Deforming dorsopathy, unspecified] 01-30-2023 Episodic Other acquired deformities (1 source) Deforming dorsopathy, unspecified; Translations: [Curvature of spine] Onset: Episodic Other and unspecified benign neoplasm (1 source) Hemangioma of skin; Translations: [Hemangioma of skin and subcutaneous tissue] 12-24-2022 Episodic Other ear and sense organ disorders (2 sources) Bilateral earache; Translations: [Otalgia, bilateral] Episodic Other endocrine disorders (20 sources) Hyperandrogenization syndrome; Translations: [Other ovarian dysfunction] Onset: 2 10-03-2011 Chronic Other endocrine disorders (20 sources) Hyperprolactinemia; Translations: [Hyperprolactinemia] Onset: 2 12-30-2011 Chronic Other endocrine disorders (20 sources) Polycystic ovary syndrome; Translations: [Polycystic ovarian syndrome] Onset: 2 12-30-2011 Chronic Other lower respiratory disease (9 sources) Cough; Translations: [Cough] Episodic Other lower respiratory disease (2 sources) Dyspnea; Translations: [Shortness of breath] Episodic Other non-traumatic joint disorders (1 source) Hip pain; Translations: [Pain in right hip] 01-30-2023 Episodic Other nutritional; endocrine; and metabolic disorders (20 sources) Morbid obesity; Translations: [Morbid (severe) obesity due to excess calories] Onset: 5 08-03-2014 Chronic Other nutritional; endocrine; and metabolic disorders (20 sources) Body mass index 40+ - severely obese; Translations: [Morbid (severe) obesity due to excess calories] Onset: 9 06-03-2018 Chronic Other nutritional; endocrine; and metabolic disorders (1 source) Morbid (severe) obesity due to excess calories; Translations: [Obesity, Class III, BMI 40-49.9 (morbid obesity) ([facility])] Onset: 9 Chronic Other skin disorders (1 source) Skin lesion; Translations: [Disorder of the skin and subcutaneous tissue, unspecified] Episodic Other upper respiratory disease (1 source) Nasal congestion; Translations: [Nasal congestion] Episodic Other upper respiratory disease (2 sources) Nasal discharge; Translations: [Other specified disorders of nose and nasal sinuses] Episodic Other upper respiratory disease (1 source) Congestion of nasal sinus; Translations: [Nasal congestion] 12-11-2022 Episodic Other upper respiratory infections (9 sources) Chronic sinusitis; Translations: [Chronic sinusitis, unspecified] Chronic Other upper respiratory infections (2 sources) Acute upper respiratory infection; Translations: [Acute upper respiratory infection, unspecified] Episodic Schizophrenia and other psychotic disorders (20 sources) Delusional disorder; Translations: [Delusional disorders] Onset: 7 11-10-2016 Chronic Spondylosis; intervertebral disc disorders; other back problems (20 sources) Low back pain; Translations: [Low back pain] Onset: 4 05-11-2013 Episodic Viral infection (1 source) Viral disease; Translations: [Viral infection, unspecified] Episodic Past or Other Problems Problem Classification Problem Date Documented Da te Episodic/Chronic Abdominal pain (5 sources) Flank pain; Translations: [Unspecified abdominal pain] Onset: 05-13-2022 Episodic Diabetes mellitus without complication (2 sources) Increased glucose level; Translations: [Other abnormal glucose] Onset: 09-18-2022 Episodic Genitourinary symptoms and ill-defined conditions (11 sources) Dysuria; Translations: [Dysuria] Onset: 05-07-2022 Episodic Mycoses (2 sources) Candidiasis of skin; Translations: [Candidiasis of skin and nail] Onset: 12-24-2022 12-24-2022 Episodic Other and unspecified benign neoplasm (1 source) Hemangioma of skin and subcutaneous tissue; Translations: [Hemangioma of skin] Onset: 12-24-2022 Episodic Other lower respiratory disease (2 sources) Chronic cough; Translations: [Chronic cough] Onset: 12-24-2022 12-24-2022 Episodic Other non-traumatic joint disorders (2 sources) Pain in right knee; Translations: [Pain in joint, lower leg] Onset: 12-11-2022 12-11-2022 Episodic Other screening for suspected conditions (not mental disorders or infectious disease) (5 sources) Patient encounter status; Translations: [Encounter for screening mammogram for malignant neoplasm of breast] Onset: 12-24-2022 Episodic Other skin disorders (20 sources) Hirsutism; Translations: [Hirsutism] Onset: 10-03-2011 10-03-2011 Episodic Sprains and strains (20 sources) Sprain of knee; Translations: [Sprain of other specified parts of right knee, sequela] Onset: 07-16-2017 07-16-2017 Episodic Results Test Name Value Interpretation Reference Range Facil ity Vital Signs Date Time Vital Sign Value Performing Clinician Faci lity 01-30-2023 14:53-0400 Diastolic blood pressure 82 mm[Hg] Daniel hCun MD Work Phone: [facility] 01-30-2023 14:53-0400 Heart rate 82 /min Daniel Chun MD Work Phone: [facility] 01-30-2023 14:53-0400 Respiratory rate 18 /min Daniel Chun MD Work Phone: [facility] 01-30-2023 14:53-0400 Systolic blood pressure 118 mm[Hg] Daniel Chun MD Work Phone: [facility] 12-24-2022 11:28-0400 Body height 159 cm Silasjose Carterhof ORIENTAL RUG STRETCHER.GENERAL ASSISTANT Work Phone: [facility] 12-24-2022 11:28-0400 Body weight 151.05 kg Silas Carterhof ORIENTAL RUG STRETCHER.GENERAL ASSISTANT Work Phone: [facility] 12-24-2022 11:28-0400 Diastolic blood pressure 72 mm[Hg] Silas Carterhof ORIENTAL RUG STRETCHER.GENERAL ASSISTANT Work Phone: [facility] 12-24-2022 11:28-0400 Heart rate 78 /min Silas Carterhof ORIENTAL RUG STRETCHER.GENERAL ASSISTANT Work Phone: [facility] 12-24-2022 11:28-0400 Respiratory rate 20 /min Silas Carterhof ORIENTAL RUG STRETCHER.GENERAL ASSISTANT Work Phone: [facility] 12-24-2022 11:28-0400 SaO2% (BldA) [Mass fraction] 97 % Silas Carterhof ORIENTAL RUG STRETCHER.GENERAL ASSISTANT Work Phone: [facility] 12-24-2022 11:28-0400 Systolic blood pressure 120 mm[Hg] Silas Carterhof ORIENTAL RUG STRETCHER.GENERAL ASSISTANT Work Phone: [facility] 12-11-2022 14:05-0400 Body temperature 98.71 [degF] Silas Carterhof ORIENTAL RUG STRETCHER.GENERAL ASSISTANT Work Phone: [facility] 12-11-2022 14:05-0400 Body weight 150.59 kg Silas Carterhof ORIENTAL RUG STRETCHER.GENERAL ASSISTANT Work Phone: [facility] 12-11-2022 14:05-0400 Diastolic blood pressure 74 mm[Hg] Silas Carterhof ORIENTAL RUG STRETCHER.GENERAL ASSISTANT Work Phone: [facility] 12-11-2022 14:05-0400 Heart rate 78 /min Silas Emmahof ORIENTAL RUG STRETCHER.GENERAL ASSISTANT Work Phone: [facility] 12-11-2022 14:05-0400 Respiratory rate 22 /min Silasjose Carterhof ORIENTAL RUG STRETCHER.GENERAL ASSISTANT Work Phone: [facility] 12-11-2022 14:05-0400 Systolic blood pressure 116 mm[Hg] Silas Carterhof ORIENTAL RUG STRETCHER.GENERAL ASSISTANT Work Phone: [facility] 09-18-2022 16:35-0400 Body temperature 97.9 [degF] Daniel Chun MD Work Phone: [facility] 09-18-2022 16:35-0400 Body weight 151.32 kg Daniel Chun MD Work Phone: [facility] 09-18-2022 16:35-0400 Diastolic blood pressure 88 mm[Hg] Daniel Chun MD Work Phone: [facility] 09-18-2022 16:35-0400 Heart rate 96 /min Daniel Chun MD Work Phone: [facility] 09-18-2022 16:35-0400 Respiratory rate 20 /min Danile Chun MD Work Phone: [facility] 09-18-2022 16:35-0400 SaO2% (BldA) [Mass fraction] 97 % Daniel Chun MD Work Phone: [facility] 09-18-2022 16:35-0400 Systolic blood pressure 128 mm[Hg] Daniel Chun MD Work Phone: [facility] 07-29-2022 13:58-0400 Body temperature 98.71 [degF] Jess James ORIENTAL RUG STRETCHER.GENERAL ASSISTANT Work Phone: [facility] 07-29-2022 13:58-0400 Body weight 152.41 kg Jess Jose ORIENTAL RUG STRETCHER.GENERAL ASSISTANT Work Phone: [facility] 07-29-2022 13:58-0400 Diastolic blood pressure 86 mm[Hg] Jess Jose ORIENTAL RUG STRETCHER.GENERAL ASSISTANT Work Phone: [facility] 07-29-2022 13:58-0400 Heart rate 86 /min Jess Jose ORIENTAL RUG STRETCHER.GENERAL ASSISTANT Work Phone: [facility] 07-29-2022 13:58-0400 Respiratory rate 20 /min Jess Jose ORIENTAL RUG STRETCHER.GENERAL ASSISTANT Work Phone: [facility] 07-29-2022 13:58-0400 SaO2% (BldA) [Mass fraction] 96 % Jess Jose ORIENTAL RUG STRETCHER.GENERAL ASSISTANT Work Phone: [facility] 07-29-2022 13:58-0400 Systolic blood pressure 106 mm[Hg] Jess Jose ORIENTAL RUG STRETCHER.GENERAL ASSISTANT Work Phone: [facility] 06-16-2022 11:53-0500 Body temperature 97.9 [degF] Krislyn Aberegg PA Work Phone: [facility] 06-16-2022 11:53-0500 Body weight 154.22 kg Krislyn Aberegg PA Work Phone: [facility] 06-16-2022 11:53-0500 Diastolic blood pressure 72 mm[Hg] Krislyn Aberegg PA Work Phone: [facility] 06-16-2022 11:53-0500 Heart rate 82 /min Krislyn Aberegg PA Work Phone: [facility] 06-16-2022 11:53-0500 Respiratory rate 18 /min Krislyn Aberegg PA Work Phone: [facility] 06-16-2022 11:53-0500 SaO2% (BldA) [Mass fraction] 96 % Krislyn Aberegg PA Work Phone: [facility] 06-16-2022 11:53-0500 Systolic blood pressure 122 mm[Hg] Krislyn Aberegg PA Work Phone: [facility] 05-16-2022 11:48-0500 Body temperature 97.5 [degF] Silas Tannhof ORIENTAL RUG STRETCHER.GENERAL ASSISTANT Work Phone: [facility] 05-16-2022 11:48-0500 Body weight 151.5 kg Silas Tannhof ORIENTAL RUG STRETCHER.GENERAL ASSISTANT Work Phone: [facility] 05-16-2022 11:48-0500 Diastolic blood pressure 62 mm[Hg] Silas Tannhof ORIENTAL RUG STRETCHER.GENERAL ASSISTANT Work Phone: [facility] 05-16-2022 11:48-0500 Heart rate 90 /min Silas Tannhof ORIENTAL RUG STRETCHER.GENERAL ASSISTANT Work Phone: [facility] 05-16-2022 11:48-0500 Respiratory rate 20 /min Silas Tannhof ORIENTAL RUG STRETCHER.GENERAL ASSISTANT Work Phone: [facility] 05-16-2022 11:48-0500 SaO2% (BldA) [Mass fraction] 98 % Silas Tannhof ORIENTAL RUG STRETCHER.GENERAL ASSISTANT Work Phone: [facility] 05-16-2022 11:48-0500 Systolic blood pressure 120 mm[Hg] Silas Tannhof ORIENTAL RUG STRETCHER.GENERAL ASSISTANT Work Phone: [facility] 05-07-2022 14:59-0500 Body height 165.1 cm Wilmar Coyner ORIENTAL RUG STRETCHER.GENERAL ASSISTANT Work Phone: [facility] 05-07-2022 14:59-0500 Body weight 151.96 kg Wilmar Coyner ORIENTAL RUG STRETCHER.GENERAL ASSISTANT Work Phone: [facility] 04-10-2022 14:02-0500 Body temperature 98.91 [degF] Silas Tannhof ORIENTAL RUG STRETCHER.GENERAL ASSISTANT Work Phone: [facility] 04-10-2022 14:02-0500 Body weight 151.96 kg Silas Tannhof ORIENTAL RUG STRETCHER.GENERAL ASSISTANT Work Phone: [facility] 04-10-2022 14:02-0500 Diastolic blood pressure 80 mm[Hg] Silas Tannhof ORIENTAL RUG STRETCHER.GENERAL ASSISTANT Work Phone: [facility] 04-10-2022 14:02-0500 Heart rate 90 /min Silas Tannhof ORIENTAL RUG STRETCHER.GENERAL ASSISTANT Work Phone: [facility] 04-10-2022 14:02-0500 Respiratory rate 16 /min Silas Tannhof ORIENTAL RUG STRETCHER.GENERAL ASSISTANT Work Phone: [facility] 04-10-2022 14:02-0500 SaO2% (BldA) [Mass fraction] 98 % Silas Tannhof ORIENTAL RUG STRETCHER.GENERAL ASSISTANT Work Phone: [facility] 04-10-2022 14:02-0500 Systolic blood pressure 110 mm[Hg] Silas Tannhof ORIENTAL RUG STRETCHER.GENERAL ASSISTANT Work Phone: [facility] 03-05-2022 14:32-0500 Body weight 151.05 kg Silas Tannhof ORIENTAL RUG STRETCHER.GENERAL ASSISTANT Work Phone: [facility] 03-05-2022 14:32-0500 Diastolic blood pressure 88 mm[Hg] Silas Tannhof ORIENTAL RUG STRETCHER.GENERAL ASSISTANT Work Phone: [facility] 03-05-2022 14:32-0500 Heart rate 88 /min Silas Tannhof ORIENTAL RUG STRETCHER.GENERAL ASSISTANT Work Phone: [facility] 03-05-2022 14:32-0500 Respiratory rate 20 /min Silas Tannhof ORIENTAL RUG STRETCHER.GENERAL ASSISTANT Work Phone: [facility] 03-05-2022 14:32-0500 SaO2% (BldA) [Mass fraction] 98 % Silas Tannhof ORIENTAL RUG STRETCHER.GENERAL ASSISTANT Work Phone: [facility] 03-05-2022 14:32-0500 Systolic blood pressure 120 mm[Hg] Silas Tannhof ORIENTAL RUG STRETCHER.GENERAL ASSISTANT Work Phone: [facility] 12-09-2021 14:30-0400 Body temperature 97.81 [degF] Daniel Chun MD Work Phone: [facility] 12-09-2021 14:30-0400 Body weight 153.91 kg Daniel Chun MD Work Phone: [facility] 12-09-2021 14:30-0400 Diastolic blood pressure 70 mm[Hg] Daniel Chun MD Work Phone: [facility] 12-09-2021 14:30-0400 Heart rate 80 /min Daniel Chun MD Work Phone: [facility] 12-09-2021 14:30-0400 Respiratory rate 18 /min Daniel Chun MD Work Phone: [facility] 12-09-2021 14:30-0400 Systolic blood pressure 118 mm[Hg] Daniel Chun MD Work Phone: [facility] Encounters Encounter Date Encounter Type Care Provider Facility Start: 05-01-2023 End: 05-01-2023 ambulatory DANIEL CHUN Facility:[facility] Start: 03-24-2023 Refill Dainel brandon MD Work Phone: [facility] Procedures Date Procedure Procedure Detail Performing Clinician Start: 02-02-2023 Radex entir thrc lmb r crv sac spi w/skull 2/3 vw Daniel Chun MD Work Phone: Start: 07-29-2022 COVID WITH FLUA+B, ROUTINE Jess Jose ORIENTAL RUG STRETCHER.GENERAL ASSISTANT Work Phone: Start: 05-13-2022 Ct abdomen & pelvis w/o contrast material Wilmar Polanco ORIENTAL RUG STRETCHER.GENERAL ASSISTANT Work Phone: Start: 04-10-2022 COVID WITH FLUA+B, ROUTINE Silas Lewis ORIENTAL RUG STRETCHER.GENERAL ASSISTANT Work Phone: Start: 03-07-2022 Us retroperitoneal r eal time w/image complete Silas Lewis ORIENTAL RUG STRETCHER.GENERAL ASSISTANT Work Phone: Start: 06-03-2018 Adult depression scr eening assessment Silas Lewis ORIENTAL RUG STRETCHER.GENERAL ASSISTANT Work Phone: Plan of Treatment Date Care Activity Detail Author Start: 06-03-2028 Urine microalbumin profile [facility] Start: 01-31-2024 Annual PCP Team Income Tax Investigator srinivas Disease Visit Annual PCP Team Chronic Disease Visit [facility] Start: 12-25-2023 ANNUAL PCP TEAM SURFACE GRINDER SRINIVAS DISEASE VISIT ANNUAL PCP TEAM CHRONIC DISEASE VISIT [facility] Start: 12-25-2023 COVID-19 VACCINE (#1) COVID-19 VACCI NE (#1) [facility] Immunizations Immunization Date Immunization Notes Care Provider Fa gerald 01-03-2019 influenza, injectabl e, quadrivalent, contains preservative Silas Tannhof ORIENTAL RUG STRETCHER.[employer] Work Phone: [facility] 01-03-2019 influenza virus vaccine, unspecified formulation Daniel Chun MD Work Phone: [facility] 06-03-2018 tetanus toxoid, reduced diphtheria toxoid, and acellular pertussis vaccine, adsorbed Silas Tannhof ORIENTAL RUG STRETCHER.GENERAL ASSISTANT Work Phone: [facility] 01-22-2016 influenza, injectabl e, quadrivalent, contains preservative Silas Tannhof ORIENTAL RUG STRETCHER.GENERAL ASSISTANT Work Phone: [facility] 03-22-2015 influenza, injectabl e, quadrivalent, contains preservative Silas Tannhof ORIENTAL RUG STRETCHER.GENERAL ASSISTANT Work Phone: [facility] 03-22-2015 influenza, seasonal, injectable Silas Tannhof ORIENTAL RUG STRETCHER.GENERAL ASSISTANT Work Phone: [facility] Work Phone: 02-21-2014 influenza, seasonal, injectable Silas Tannhof ORIENTAL RUG STRETCHER.GENERAL ASSISTANT Work Phone: [facility] 05-11-2013 influenza virus vaccine, unspecified formulation Silas Tannhof ORIENTAL RUG STRETCHER.GENERAL ASSISTANT Work Phone: [facility] Payers Date Payer Category Payer Medicaid [facility] [employer] [facility] [employer] [id number] 2018-Present [phone] [address] [place] [address] Medicaid [id number] 2018 Medicare [id number] 2018 Medicare UHC MEDICARE [employer] U[employer] MEDICARE [id number] 2018-Present [phone] [address] [place] [address] Medicare [id number] 2018 Medicare [id number] Social History Date Type Detail Facility Start: 12-09-2021 Tobacco smoking stat [facility] Never smoked tobacco [facility] Work Phone: Start: 03-18-2021 End: 01-30-2023 Alcohol intake Current non-drinker of alcohol (finding) [facility] Start: 1980 Sex Assigned At Not on file [facility] Start: 12-09-2021 Tobacco use and exposure Smokeless tobacco non-user [facility] Start: 11-29-2021 End: 03-05-2022 Exposure to SARS-CoV-2 (event) Not sure [facility] Start: 09-18-2022 End: 12-11-2022 History of Social function [facility] Start: 09-18-2022 End: 12-11-2022 Tobacco use panel [facility] Adult Depression Screening Assessment 0 [facility] Clinical Notes 10-03-2011 to 05-01-2023 Telephone Encounter - Daniel Chun MD - 03/24/2023 1:30 PM ESTTelephone Encounter - Queta Garcia RN - 03/24/2023 1:09 PM Karen Hoyt, RT(R) - 02/02/2023 2:00 PM EDT Note Date & Type Note Facility 05-01-2023 Note HNO ID: [id number] Author: JESS JAMES APRN.GENERAL ASSISTANT Service: ? Author Type: Nurse Practitioner Type: Progress Notes Filed: 05/01/2023 14:03 Note Text: Chief Complaint Patient presents with: Follow Up: Lower back pain AND ROSARIO hip pain HPI Karen Barrera is a 42 year old female who presents here today for Above Complaints. Back pain: Patient is complaining of lower back pain. Ongoing for a few months. Present for a few months. Mentions she fell when she had a seizure. No radiation of pain down either leg. She also fell down a set of steps. States that there was no light on. The right knee has been bothering her. This occurred a year ago. Hurst to bend at times. Has not been feeling well over the past few days. Cough and congestion. States that she has some green phlegm. Some cervical tenderness in the right side. No ear or throat pain. Some sick contacts. Reviewing her chart, she was prescribed Augmentin from April 06 to 16 April for similar symptoms. Her symptoms did not resolve. They did slightly improved. She does have a lengthy history of allergies to azithromycin, doxycycline, Keflex. Past medical history, appointments, medications, allergies reviewed. EXAM: BP 123/78 Pulse 94 Resp 20 Wt (!) 150.1 kg (331 lb) LMP 02/26/2021 SpO2 97% BMI 59.39 kg/m? General Appearance: Well appearing, alert, in no acute distress, well-hydrated, well nourished.. Head: Normocephalic, no masses, lesions, tenderness or abnormalities. Eyes: Anicteric sclera. Pupils are equally round and reactive to light. Extraocular movements are intact. . Ears: External ears normal, canals clear. Nose/Sinuses: Positive findings: mucosa swollen, pale, and boggy. Oropharynx: Lips, mucosa, and tongue normal, teeth and gums normal, oropharynx normal. Neck: Supple, no adenopathy; thyroid symmetric, normal size Lungs: Lungs clear to auscultation. No wheezing, rhonchi, rales.. Cough Heart: RRR without murmur, gallop, or rubs. No ectopy. Extremities: No deformities, edema M/S: Difficult to exam, patient could not get pants off. Some mild tenderness of the right and left joint space in the knee. Back: stiffness in the gait when walking, verbalizes mild tenderness of the lower back on the right and left side. ASSESSMENT/PLAN: 1. Arthritis of low back - ICD9: 721.90, ICD10: M47.819 (primary diagnosis) - Start prednisone, see physical therapy. Consider referral to spine if not improving. - CONSULT TO PHYSICAL THERAPY - PREDNISONE 20 MG TABLET 2. Chronic pain of right knee - ICD9: 719.46, 338.29, ICD10: M25.561, G89.29 -Chronic, likely weight is not helping her arthritis. CPT, start prednisone. If not improving, consider referral to Ortho with MRI. - CONSULT TO PHYSICAL THERAPY - PREDNISONE 20 MG TABLET 3. Sinobronchitis - ICD9: 473.9, 490, ICD10: J32.9, J40 -Ongoing for 7 days. Allergies to numerous respiratory antibiotics. Discussed risk of repeating antibiotic use. Encourage patient to either start probiotic or eat some type of yogurt daily. Patient wanted to proceed with antibiotic. - AMOXICILLIN 875 MG-POTASSIUM CLAVULANATE 125 MG TABLET Jess James APRN.GENERAL ASSISTANT This note was partly generated using Pi[employer] voice recognition dictation and may contain some misspelled or inaccurate words missed on review. [facility] 03-24-2023 Miscellaneous Notes Formattin g of this note might be different from the original. OK to refill as ordered Daniel Chun MD Date of last office: 01/30/2023 Date of next office visit: None Requested Prescriptions Pending Prescriptions Disp Refills cyclobenzaprine (FLEXERIL) 10 mg tablet 30 tablet 2 Sig: Take 1 tablet by mouth three times a day as needed for muscle spasm. benzonatate (TESSALON PERLE) 100 mg capsule 30 capsule 1 Sig: Take 1 capsule by mouth three times a day as needed. Please advise. Thank you. Queta Garcia RN. documented in this encounter [facility] 03-02-2023 Miscellaneous Notes Formattin g of this note might be different from the original. Pt mother and EC Kennedi Barrera notified and voiced understanding. Mariana Gamez Ma I would agree with trying to get her into a psychiatrist for evaluation. She would probably have to find a coreroom foundry laborer to help her get guardianship. Daniel Chun MD Pt's mother Kennedi Barrera calling to update Dr. Chun on pt's condition. Mother states over the past year that her daughter doesn't want to do anything anymore. She won't eat unless someone makes it for her and helps her eat it. Mother states pt won't take a shower. She just wants to sit in a chair and not do anything. Mother states when they saw Dr. Chun in January, she couldn't talk to Dr. Chun about it while the patient was in the room. Mother very upset and concerned and does not know what to do. She states the patient had been seeing a counselor at the counseling center but the counselor cancelled an appt on them because the counselor said she was sick. Pt's mother believes she was lying and the counselor never called back to reschedule the appt. Mother refuses to call the counseling center anymore because she doesn't trust any of them. She states that her granddaughter goes to another counselor and there is a psychiatrist there. Hoping to get the pt in to that office. Mother feels she needs to figure out what to do with the pt because mother is 82 and worried that she will and who will take care of the patient. Mother wants to know if Dr. Chun has any suggestions and how would she go about getting guardianship for the patient? documented in this encounter [facility] 02-09-2023 Miscellaneous Notes Formattin g of this note might be different from the original. Pt mother notified and voiced understanding. Mariana Gamez Ma I think she is having muscles spasms causing the deformity; I would recommend trying Flexeril as ordered and see if this helps. Daniel Chun MD Pts mother called and is notified of providers results and instructions. She is asking then what is causing the large bump on the right side of her back from the shoulder down to her waist. She states the Pts L should is a hands length lower than the R shoulder, and her head an neck are pulling to the left. She is asking what is causing Pt to have severe pain in her hips, legs, and back. Please call and advise. Emilee Brady RN Please notify patient that her back Xray just shows minimal scoliosis, not enough that would need any treatment or would be a problem. Daniel Chun MD documented in this encounter [facility] 02-02-2023 Note HNO ID: [id number] Author: Karen Gray RT(R) Service: ? Author Type: Technologist Type: Progress Notes Filed: 02/02/2023 3:43 PM Note Text: Radiology Service Progress Note PATIENT NAME: Karen Barrera DATE OF SERVICE: February 02, 2023 TIME: 3:42 PM PATIENT IDENTITY VERIFICATION COMPLETED USING TWO (2) IDENTIFIERS: Name and Date of confirmed by patient verbally. FALL SCREENING: Has the patient had 2 falls in the last year or 1 fall with injury or currently using an Ambulatory Assistive Device (Walker, Cane, Wheelchair, Crutches, etc.)? No PATIENT GENDER DATA: Female. status: : No status: NO. PATIENT RELEVANT IMPLANT DATA REVIEWED: Yes RADIOLOGY DEPARTMENT: General X-ray: Exam(s) Completed: Spine X-Ray(s): Scoliosis Series PA/LAT PERIPHERAL IV DATA: Not applicable SIGNED BY: RT Hannah(R) February 02, 2023 3:42 PM [facility] 02-02-2023 History of Presen t illness Narrative Radiology Service Progress Note PATIENT NAME: Karen Barrera DATE OF SERVICE: February 02, 2023 TIME: 3:42 PM PATIENT IDENTITY VERIFICATION COMPLETED USING TWO (2) IDENTIFIERS: Name and Date of confirmed by patient verbally. FALL SCREENING: Has the patient had 2 falls in the last year or 1 fall with injury or currently using an Ambulatory Assistive Device (Walker, Cane, Wheelchair, Crutches, etc.)? No PATIENT GENDER DATA: Female. status: : No status: NO. PATIENT RELEVANT IMPLANT DATA REVIEWED: Yes RADIOLOGY DEPARTMENT: General X-ray: Exam(s) Completed: Spine X-Ray(s): Scoliosis Series PA/LAT PERIPHERAL IV DATA: Not applicable SIGNED BY: RT Hannah(R) February 02, 2023 3:42 PM documented in this encounter [facility] 01-30-2023 Note HNO ID: [id number] Author: Daniel Chun MD Service: ? Author Type: Physician Type: Progress Notes Filed: 01/30/2023 3:38 PM Note Text: Chief Complaint Patient presents with: back issue HPI Karen Barrera is a 42 year old female who presents here today for a back issue. Pt here today with her Mother. Pt and mother had to be taken to different exam area due to mother not able to ambulate. Pt's mother noticed that the for the past several months that pt has a deformity in her back from right side shoulder down to the waist. Her left shoulder is a lot lower then her right shoulder and has a large lump in the in her mid back section. Mother also states that her right upper arm has gotten much bigger. When bending over she's not able to bend over far. Feel like this is all has came on since her medications have been changed. Mother states she's having a lot of pain in her hips, shoulders and back. Pt also states that she has bronchitis and is requesting abx. Generally she gets Augmentin. Mother states that she's having increased seizures. She follows with Neuro for this. Her psychiatric medications have been adjusted, which may have impacted her. Past medical history, appointments, medications, allergies reviewed. Previous Medical History PAST MEDICAL HISTORY Diagnosis Date Abnormal result of cardiovascular function study Adjustment disorder with depressed mood Chest pain Chronic factitious illness with physical symptoms Closed fracture of unspecified bone right arm Closed fracture of unspecified bone left ankle Esophageal reflux Myalgia and myositis, unspecified Other forms of dyspnea Seizure disorder (HCC) 09/26/2011 SOB (shortness of breath) Unspecified asthma, with status asthmaticus Previous Surgical History PAST SURGICAL HISTORY Procedure Laterality Date CHEST X-RAY 06/16/2020 CHEST X-RAY 06/16/2020 ECHO 02/13/2022 EF60% EKG 09/30/2019 PAST SURGICAL HISTORY OF cyst removal from lower back STRESS TEST 03/10/2019 STRESS TEST 02/13/2022 Family History FAMILY HISTORY Problem Relation Age of Onset Asthma Mother other (Reflux) Mother other (angina) Mother Heart Father Seizures Father Seizures Brother Heart Sister ND Heart Sister Seizures Sister Young Diabetes Maternal Grandmother Stroke Maternal Grandmother other (hypoglycemia) Maternal Grandfather Patient Allergies ALLERGIES Allergen Reactions Dayquil Liquicaps [* Other: See Comments Caused Seizure Arithromycin [Azith* GI Upset Z-Pack Doxycycline GI Upset Latex Rash Mucinex Dm [Dextrom* Intolerance gran mal seizure. but can take robitussin-DM for cough without effect Risperdal [Risperid* Other: See Comments Caused seizure pt report Strawberries Hives Tamiflu [Oseltamivi* Other: See Comments Almost caused seizure Topiramate Other: See Comments Generic causes Seizures. Able to take name brand Topamax Bextra [Valdecoxib] Rash Cephalexin Intolerance Amoxil is ok Current Medications Current Outpatient Medications on File Prior to Visit Medication Sig albuterol HFA (VENTOLIN HFA) 90 mcg/actuation inhaler Inhale 2 Puffs as instructed every 4 hours as needed for wheezing/shortness of breath. cetirizine (ZYRTEC) 10 mg tablet Take 1 tablet by mouth once daily. citalopram (CELEXA) 20 mg tablet 20 mg once daily. 1 tablet daily Fluticasone Furoate (FLONASE SENSIMIST) 27.5 mcg/actuation nasal spray Use 2 Sprays in each nostril once daily. ibuprofen (MOTRIN) 600 mg tablet Take 1 tablet by mouth every 6 hours as needed for pain. iloperidone (FANAPT) 4 mg tab Take 1 tablet by mouth daily at bedtime. lacosamide (VIMPAT) 200 mg tab Take 2 tablets by mouth twice daily. levETIRAcetam (KEPPRA) 750 mg tablet Take 750 mg by mouth twice daily. montelukast (SINGULAIR) 10 mg tablet Take 1 tablet by mouth daily at bedtime. Norethindrone, Contraceptive, (ORTHO MICRONOR) 0.35 mg tablet Take 1 tablet by mouth once daily. (Patient not taking: Reported on 12/11/2022) nystatin (NYSTOP) powder Apply 1 application to affected area four times daily. (Patient not taking: Reported on 12/11/2022) therapeutic multivitamin ORAL Tab Take one(1) tablet daily. topiramate (TOPAMAX) 200 mg tablet Take 2 tablets by mouth twice daily. zonisamide (ZONEGRAN) 100 mg capsule Take 100 mg by mouth once daily. 2 capsules by mouth twice daily No current facility-administered medications on file prior to visit. Social History Social History Tobacco Use Smoking status: Never Smokeless tobacco: Never Substance Use Topics Alcohol use: No Drug use: No EXAM: BP 118/82 (BP Site: Right Arm, BP Position: Sitting, BP Cuff Size: Regular Adult) Pulse 82 Resp 18 LMP 02/26/2021 General Appearance: Well appearing, alert, in no acute distress, well-hydrated, well nourished. and Morbidly obese. Back:Left shoulder lower than right Lungs: Lungs clear to auscult (more content not included)... [facility] 01-30-2023 History of Presen t illness Narrative Chief Complaint Patient presents with: back issue HPI Karen Barrera is a 42 year old female who presents here today for a back issue. Pt here today with her Mother. Pt and mother had to be taken to different exam area due to mother not able to ambulate. Pt's mother noticed that the for the past several months that pt has a deformity in her back from right side shoulder down to the waist. Her left shoulder is a lot lower then her right shoulder and has a large lump in the in her mid back section. Mother also states that her right upper arm has gotten much bigger. When bending over she's not able to bend over far. Feel like this is all has came on since her medications have been changed. Mother states she's having a lot of pain in her hips, shoulders and back. Pt also states that she has bronchitis and is requesting abx. Generally she gets Augmentin. Mother states that she's having increased seizures. She follows with Neuro for this. Her psychiatric medications have been adjusted, which may have impacted her. Past medical history, appointments, medications, allergies reviewed. Previous Medical History PAST MEDICAL HISTORY Diagnosis Date Abnormal result of cardiovascular function study Adjustment disorder with depressed mood Chest pain Chronic factitious illness with physical symptoms Closed fracture of unspecified bone right arm Closed fracture of unspecified bone left ankle Esophageal reflux Myalgia and myositis, unspecified Other forms of dyspnea Seizure disorder (HCC) 09/26/2011 SOB (shortness of breath) Unspecified asthma, with status asthmaticus Previous Surgical History PAST SURGICAL HISTORY Procedure Laterality Date CHEST X-RAY 06/16/2020 CHEST X-RAY 06/16/2020 ECHO 02/13/2022 EF60% EKG 09/30/2019 PAST SURGICAL HISTORY OF cyst removal from lower back STRESS TEST 03/10/2019 STRESS TEST 02/13/2022 Family History FAMILY HISTORY Problem Relation Age of Onset Asthma Mother other (Reflux) Mother other (angina) Mother Heart Father Seizures Father Seizures Brother Heart Sister ND Heart Sister Seizures Sister Young Diabetes Maternal Grandmother Stroke Maternal Grandmother other (hypoglycemia) Maternal Grandfather Patient Allergies ALLERGIES Allergen Reactions Dayquil Liquicaps [* Other: See Comments Caused Seizure Arithromycin [Azith* GI Upset Z-Pack Doxycycline GI Upset Latex Rash Mucinex Dm [Dextrom* Intolerance gran mal seizure. but can take robitussin-DM for cough without effect Risperdal [Risperid* Other: See Comments Caused seizure pt report Strawberries Hives Tamiflu [Oseltamivi* Other: See Comments Almost caused seizure Topiramate Other: See Comments Generic causes Seizures. Able to take name brand Topamax Bextra [Valdecoxib] Rash Cephalexin Intolerance Amoxil is ok Current Medications Current Outpatient Medications on File Prior to Visit Medication Sig albuterol HFA (VENTOLIN HFA) 90 mcg/actuation inhaler Inhale 2 Puffs as instructed every 4 hours as needed for wheezing/shortness of breath. cetirizine (ZYRTEC) 10 mg tablet Take 1 tablet by mouth once daily. citalopram (CELEXA) 20 mg tablet 20 mg once daily. 1 tablet daily Fluticasone Furoate (FLONASE SENSIMIST) 27.5 mcg/actuation nasal spray Use 2 Sprays in each nostril once daily. ibuprofen (MOTRIN) 600 mg tablet Take 1 tablet by mouth every 6 hours as needed for pain. iloperidone (FANAPT) 4 mg tab Take 1 tablet by mouth daily at bedtime. lacosamide (VIMPAT) 200 mg tab Take 2 tablets by mouth twice daily. levETIRAcetam (KEPPRA) 750 mg tablet Take 750 mg by mouth twice daily. montelukast (SINGULAIR) 10 mg tablet Take 1 tablet by mouth daily at bedtime. Norethindrone, Contraceptive, (ORTHO MICRONOR) 0.35 mg tablet Take 1 tablet by mouth once daily. (Patient not taking: Reported on 12/11/2022) nystatin (NYSTOP) powder Apply 1 application to affected area four times daily. (Patient not taking: Reported on 12/11/2022) therapeutic multivitamin ORAL Tab Take one(1) tablet daily. topiramate (TOPAMAX) 200 mg tablet Take 2 tablets by mouth twice daily. zonisamide (ZONEGRAN) 100 mg capsule Take 100 mg by mouth once daily. 2 capsules by mouth twice daily No current facility-administered medications on file prior to visit. Social History Social History Tobacco Use Smoking status: Never Smokeless tobacco: Never Substance Use Topics Alcohol use: No Drug use: No EXAM: BP 118/82 (BP Site: Right Arm, BP Position: Sitting, BP Cuff Size: Regular Adult) Pulse 82 Resp 18 LMP 02/26/2021 General Appearance: Well appearing, alert, in no acute distress, well-hydrated, well nourished. and Morbidly obese. Back:Left shoulder lower than right Lungs: Lungs clear to auscultation. No wheezing, rhonchi, rales.. Heart: RRR without murmur, gallop, or rubs. No ectopy. Health Maintenance List Pneumococcal Vaccine(1 - PCV) Never done Spirometry Never done Mammogram Screening Never done Pap Testing due on 06/03/2023 HPV Testing due on 06/03/2023 Influenza Vaccine(1) due on 10/18/2023 Hepatitis B Vaccine(1 of 3 - 3-dose series) due on 12/25/2023 Hepatitis C Screening due on 12/25/2023 Covid-19 Vaccine(1) due on 12/25/2023 Annual PCP Team Chronic Disease Visit due on 12/25/2023 DTaP,Tdap,Td Vaccine(2 - Td or Tdap) due on 06/03/2028 Depression Assessment Completed HIV Screening Completed HPV Vaccine Aged Out Data reviewed None ASSESSMENT/PLAN: 1. Back pain, unspecified back location, unspecified back pain laterality, unspecified chronicity - ICD9: 724.5, ICD10: M54.9 (primary diagnosis) - Complete x-ray today - Possible muscle spasms, may need muscle relaxer - Will call with results - XR SCOLIOSIS PA STAND/LAT 2V 2. Curvature of spine - ICD9: 737.9, ICD10: M43.9 - Will get Xray to check for scoliosis - XR SCOLIOSIS PA STAND/LAT 2V 3. Bilateral hip pain - ICD9: 719.45, ICD10: M25.551, M25.552 4. Sinobronchitis - ICD9: 473.9, 490, ICD10: J32.9, J40 - Rx for Amoxicillin called into the Pharmacy - AMOXICILLIN 875 MG TABLET 5. Cough, unspecified type - ICD9: 786.2, ICD10: R05.9 - Rx sent into pharmacy. - BENZONATATE 100 MG CAPSULE Complete x-rays today. I agree with the Chief Complaint, ROS, and Past Histories independently gathered by the clinical direct support specialist and the remaining scribed note accurately describes my personal service to the patient. Medical Decision Making: Problems: Moderate: New problem with uncertain prognosis Data: Unique test(s) ordered: 1 Risk: Moderate: Drug management Medical Decision Making Level: 4 - Moderate Daniel Chun MD The documentation for this note was completed by Chantel Townsend Ma acting as scribe for Daniel Chun MD. January 30, 2023 3:07 PM. Chantel Townsend Ma documented in this encounter [facility] 12-25-2022 Miscellaneous Notes Formattin g of this note might be different from the original. Letter mailed to pt home of results. Mariana Gamez MA Can you please call the patient and let her know that I reviewed her lab results. A1c was 5.3, no signs of diabetes. Some signs of dehydration, I would recommend that she get adequate water intake during the day. Recommend 8 to 10 glasses/day. HDL was low and LDL was mildly elevated. I would recommend lifestyle changes at home to help improve this. Try to decrease processed foods in the diet increase lean protein, vegetables, and get some form of exercise. If she is still having urinary symptoms I would recommend she follow-up with her urologist. Please let me know if she has any questions. Thank you. Silas Lewis APRN.DIXIE documented in this encounter [facility] 12-24-2022 Note HNO ID: [id number] Author: Silas Lewis APRN.GENERAL ASSISTANT Service: ? Author Type: Nurse Practitioner Type: Progress Notes Filed: 12/24/2022 12:28 PM Note Text: This is a 42 year old female who presents today with: Patient presents with: Physical HISTORY OF PRESENT ILLNESS: Karen Barrera is a 42 year old female. Patient presents with: Physical Here in the office for wellness exam. Diet: Eating a well balanced diet. Exercise: Not exercising. Vision: Had exam, wearing glasses. Dental: Due for exam. Sleep: 8 hours per night. Mood: Taking Celexa 20 mg daily. Denies any increased sadness, anxiety, or SI/HI. Seizure disorder: Taking Keppra 750 mg twice daily and Zonegran 100 mg, 2 capsules twice daily. Following with neurology in [place]. Asthma: Taking albuterol as needed, Zyrtec 10 mg daily, Singulair 10 mg daily, and Flonase twice daily. Does not currently follow with pulmonology. Has been seen several times in the past 6 months for chronic cough. Coughing up green mucus. Will having wheezing at times. Mixed incontinence/stress incontinence: Following with urology. Increase with urination, was seen in office for these symptoms, needs to complete urine testing. Mammogram: Due at this time, order in place. Pap: Last Pap May 2018, normal. Vaccines: Denies wanting vaccines at this time. PAST MEDICAL HISTORY: PAST MEDICAL HISTORY Diagnosis Date Abnormal result of cardiovascular function study Adjustment disorder with depressed mood Chest pain Chronic factitious illness with physical symptoms Closed fracture of unspecified bone right arm Closed fracture of unspecified bone left ankle Conversion disorder Esophageal reflux Myalgia and myositis, unspecified Other forms of dyspnea Seizure disorder (HCC) 09/26/2011 SOB (shortness of breath) Unspecified asthma, with status asthmaticus PAST SURGICAL HISTORY Procedure Laterality Date CHEST X-RAY 06/16/2020 CHEST X-RAY 06/16/2020 ECHO 02/13/2022 EF60% EKG 09/30/2019 PAST SURGICAL HISTORY OF cyst removal from lower back STRESS TEST 03/10/2019 STRESS TEST 02/13/2022 ALLERGIES Dayquil Liquicaps [Jqwabnvml-Tj-Ts-Acetaminophen ], Arithromycin [Azithromycin], Doxycycline, Latex, Mucinex Dm [Dextromethorphan-Guaifenesin] , Risperdal [Risperidone], Strawberries, Tamiflu [Oseltamivir Phosphate], Topiramate, Bextra [Valdecoxib], and Cephalexin MEDICATIONS Current Outpatient Medications Medication Sig Fluticasone Furoate (FLONASE SENSIMIST) 27.5 mcg/actuation nasal spray Use 2 Sprays in each nostril once daily. ibuprofen (MOTRIN) 600 mg tablet Take 1 tablet by mouth every 6 hours as needed for pain. cetirizine (ZYRTEC) 10 mg tablet Take 1 tablet by mouth once daily. albuterol HFA (VENTOLIN HFA) 90 mcg/actuation inhaler Inhale 2 Puffs as instructed every 4 hours as needed for wheezing/shortness of breath. montelukast (SINGULAIR) 10 mg tablet Take 1 tablet by mouth daily at bedtime. citalopram (CELEXA) 20 mg tablet 20 mg once daily. 1 tablet daily zonisamide (ZONEGRAN) 100 mg capsule Take 100 mg by mouth once daily. 2 capsules by mouth twice daily levETIRAcetam (KEPPRA) 750 mg tablet Take 750 mg by mouth twice daily. Norethindrone, Contraceptive, (ORTHO MICRONOR) 0.35 mg tablet Take 1 tablet by mouth once daily. (Patient not taking: Reported on 12/11/2022) nystatin (NYSTOP) powder Apply 1 application to affected area four times daily. (Patient not taking: Reported on 12/11/2022) iloperidone (FANAPT) 4 mg tab Take 1 tablet by mouth daily at bedtime. topiramate (TOPAMAX) 200 mg tablet Take 2 tablets by mouth twice daily. lacosamide (VIMPAT) 200 mg tab Take 2 tablets by mouth twice daily. therapeutic multivitamin ORAL Tab Take one(1) tablet daily. No current facility-administered medications for this visit. FAMILY HISTORY Problem Relation Age of Onset Asthma Mother other (Reflux) Mother other (angina) Mother Heart Father Seizures Father Seizures Brother Heart Sister ND Heart Sister Seizures Sister Young Diabetes Maternal Grandmother Stroke Maternal Grandmother other (hypoglycemia) Maternal Grandfather Social History Tobacco Use Smoking status: Never Smokeless tobacco: Never Substance Use Topics Alcohol use: No Drug use: No REVIEW OF SYSTEMS GENERAL: No weight loss, malaise or fevers/chills HEENT: Negative for frequent or significant headaches, No changes in hearing or vision. NECK: Negative for lumps, goiter, pain and significant neck swelling RESPIRATORY: + Chronic productive cough CARDIOVASCULAR: Negative for chest pain, leg swelling, orthopnea, or palpitations GI: No nausea, vomiting, or diarrhea/constipation. No hematochezia/melena. No heartburn or reflux symptoms. : No history of dysuria, frequency or incontinence MUSCULOSKELETAL: Negative for joint pain or swelling. SKIN: Negative for lesions, rash, and itching ENDOCRINE: Negative for cold or h (more content not included)... [facility] 12-24-2022 Instructions Silas Lewis APRN.GENERAL ASSISTANT - 12/24/2022 11:47 AM EDT Get fasting labs completed, no food 10 hours prior, you can have black coffee and water. Apply antifungal cream, allow to dry then apply powder for at least 14 days. Provide urine sample in the lab, if you cannot provide sample follow up with Urologist. Complete pulmonary testing Schedule appointment with pulmonology. Due for Mammogram Due for Pap in the spring. Follow up in 1 year or sooner as needed. Health Promotion: - Eat healthy -- go to ChooseMyPlate.gov to get started - Have a yearly physical - Mammogram yearly after age 40 - Get at least 30 minutes of physical activity daily - Get at least 7 to 8 hours of sleep each night - Reach and maintain a healthy weight - Get help to quit or don't start smoking - Limit alcohol use to one drink or less - Do not use illegal drugs or misuse prescription drugs - Wear a helmet when riding a bike and wear protective gear for sports - Wear a seatbelt in cars and not text and drive - Wear sunscreen documented in this encounter [facility] 12-24-2022 History of Presen t illness Narrative This is a 42 year old female who presents today with: Patient presents with: Physical HISTORY OF PRESENT ILLNESS: Karen Barrera is a 42 year old female. Patient presents with: Physical Here in the office for wellness exam. Diet: Eating a well balanced diet. Exercise: Not exercising. Vision: Had exam, wearing glasses. Dental: Due for exam. Sleep: 8 hours per night. Mood: Taking Celexa 20 mg daily. Denies any increased sadness, anxiety, or SI/HI. Seizure disorder: Taking Keppra 750 mg twice daily and Zonegran 100 mg, 2 capsules twice daily. Following with neurology in [place]. Asthma: Taking albuterol as needed, Zyrtec 10 mg daily, Singulair 10 mg daily, and Flonase twice daily. Does not currently follow with pulmonology. Has been seen several times in the past 6 months for chronic cough. Coughing up green mucus. Will having wheezing at times. Mixed incontinence/stress incontinence: Following with urology. Increase with urination, was seen in office for these symptoms, needs to complete urine testing. Mammogram: Due at this time, order in place. Pap: Last Pap May 2018, normal. Vaccines: Denies wanting vaccines at this time. PAST MEDICAL HISTORY: PAST MEDICAL HISTORY Diagnosis Date Abnormal result of cardiovascular function study Adjustment disorder with depressed mood Chest pain Chronic factitious illness with physical symptoms Closed fracture of unspecified bone right arm Closed fracture of unspecified bone left ankle Conversion disorder Esophageal reflux Myalgia and myositis, unspecified Other forms of dyspnea Seizure disorder (HCC) 09/26/2011 SOB (shortness of breath) Unspecified asthma, with status asthmaticus PAST SURGICAL HISTORY Procedure Laterality Date CHEST X-RAY 06/16/2020 CHEST X-RAY 06/16/2020 ECHO 02/13/2022 EF60% EKG 09/30/2019 PAST SURGICAL HISTORY OF cyst removal from lower back STRESS TEST 03/10/2019 STRESS TEST 02/13/2022 ALLERGIES Dayquil Liquicaps [Lghqgbixn-Dm-Mf-Acetaminophen ], Arithromycin [Azithromycin], Doxycycline, Latex, Mucinex Dm [Dextromethorphan-Guaifenesin] , Risperdal [Risperidone], Strawberries, Tamiflu [Oseltamivir Phosphate], Topiramate, Bextra [Valdecoxib], and Cephalexin MEDICATIONS Current Outpatient Medications Medication Sig Fluticasone Furoate (FLONASE SENSIMIST) 27.5 mcg/actuation nasal spray Use 2 Sprays in each nostril once daily. ibuprofen (MOTRIN) 600 mg tablet Take 1 tablet by mouth every 6 hours as needed for pain. cetirizine (ZYRTEC) 10 mg tablet Take 1 tablet by mouth once daily. albuterol HFA (VENTOLIN HFA) 90 mcg/actuation inhaler Inhale 2 Puffs as instructed every 4 hours as needed for wheezing/shortness of breath. montelukast (SINGULAIR) 10 mg tablet Take 1 tablet by mouth daily at bedtime. citalopram (CELEXA) 20 mg tablet 20 mg once daily. 1 tablet daily zonisamide (ZONEGRAN) 100 mg capsule Take 100 mg by mouth once daily. 2 capsules by mouth twice daily levETIRAcetam (KEPPRA) 750 mg tablet Take 750 mg by mouth twice daily. Norethindrone, Contraceptive, (ORTHO MICRONOR) 0.35 mg tablet Take 1 tablet by mouth once daily. (Patient not taking: Reported on 12/11/2022) nystatin (NYSTOP) powder Apply 1 application to affected area four times daily. (Patient not taking: Reported on 12/11/2022) iloperidone (FANAPT) 4 mg tab Take 1 tablet by mouth daily at bedtime. topiramate (TOPAMAX) 200 mg tablet Take 2 tablets by mouth twice daily. lacosamide (VIMPAT) 200 mg tab Take 2 tablets by mouth twice daily. therapeutic multivitamin ORAL Tab Take one(1) tablet daily. No current facility-administered medications for this visit. FAMILY HISTORY Problem Relation Age of Onset Asthma Mother other (Reflux) Mother other (angina) Mother Heart Father Seizures Father Seizures Brother Heart Sister ND Heart Sister Seizures Sister Young Diabetes Maternal Grandmother Stroke Maternal Grandmother other (hypoglycemia) Maternal Grandfather Social History Tobacco Use Smoking status: Never Smokeless tobacco: Never Substance Use Topics Alcohol use: No Drug use: No REVIEW OF SYSTEMS GENERAL: No weight loss, malaise or fevers/chills HEENT: Negative for frequent or significant headaches, No changes in hearing or vision. NECK: Negative for lumps, goiter, pain and significant neck swelling RESPIRATORY: + Chronic productive cough CARDIOVASCULAR: Negative for chest pain, leg swelling, orthopnea, or palpitations GI: No nausea, vomiting, or diarrhea/constipation. No hematochezia/melena. No heartburn or reflux symptoms. : No history of dysuria, frequency or incontinence MUSCULOSKELETAL: Negative for joint pain or swelling. SKIN: Negative for lesions, rash, and itching ENDOCRINE: Negative for cold or heat intolerance, polyuria, polydipsia and goiter NEURO: No history of headaches, syncope, paralysis, seizures or tremors MOOD: Negative for depression, anxiety, or suicidal ideation. EXAM: BP 120/72 Pulse 78 Resp 20 Ht 159 cm (5' 2.6 ) Wt (!) 151 kg (333 lb) LMP 02/26/2021 SpO2 97% BMI 59.75 kg/m PHYSICAL EXAM: General Appearance: Well appearing, alert, in no acute distress, well-hydrated, well nourished. Skin: Small elevated, littlejohn red skin lesion noted to right shoulder, consistent with a angioma. Head: Normocephalic, no masses, lesions, tenderness or abnormalities. Eyes: Anicteric sclera. Pupils are equally round and reactive to light. Extraocular movements are intact. Ears: External ears normal, canals clear. TMs pearly copeland. Neck: Supple, no adenopathy; thyroid symmetric, normal size, no bruits. Lungs: Lungs clear to auscultation. No wheezing, rhonchi, rales. Cough. Heart: RRR without murmur, gallop, or rubs. No ectopy. Abdomen: Normal abdominal exam, Abdomen soft, non-tender. Bowel sounds normal. No masses, organomegaly, Negative CVA tenderness. Extremities: No deformities, edema, skin discoloration, clubbing or cyanosis. Good capillary refill. Musculoskeletal: No joint swelling, deformity, or tenderness. Peripheral Pulses: Normal, Capillary refill <2secs, strong peripheral pulses, Pulses palpable. Neurologic: Gait normal. Sensation grossly intact. ASSESSMENT/PLAN: 1. Wellness examination - ICD9: V70.0, ICD10: Z00.00 (primary diagnosis) - Counseled on healthy diet and regular exercise - Calcium intake with supplements or by diet of 1000 mg/day for under 50, 2300-7589 mg/day for 50+ - Discussed need and benefit for weight loss. BMI 59.75 kg/(m^2) - Mammogram ordered - exam recommended once yearly - Depression screening tool completed and reviewed with patient. Based on score and interview, patient is at risk for depression and recommended continuing current plan of care. - Follow up for annual exam in one year - COMP METABOLIC PANEL 2. Yeast infection of the skin - ICD9: 112.3, ICD10: B37.2 - Use cream and powder under the breast for 14 days. - Instructed to keep skin clean and dry. - CLOTRIMAZOLE 1 % TOPICAL CREAM - NYSTATIN (BULK) 10 BILLION UNIT POWDER 3. Chronic cough - ICD9: 786.2, ICD10: R05.3 - Concerns that symptoms may be due to asthma, see below. - BENZONATATE 100 MG CAPSULE 4. Moderate persistent asthma with acute exacerbation - ICD9: 493.92, ICD10: J45.41 - Mild intermittent asthma worse - Continue current medications - Avoidance of triggers recommended - Denied wanting to start a daily maintenance inhaler. Will complete PFT's. - SPIROMETRY - BASELINE AND POST DILATOR - LUNG VOLUMES - NITRIC OXIDE, EXHALED - CONSULT TO PULMONARY MEDICINE 5. Hemangioma of skin - ICD9: 228.01, ICD10: D18.01 - Monitor. 6. Seizure disorder (HCC) - ICD9: 345.90, ICD10: G40.909 - Stable, continue to take medication as prescribed. - Keep scheduled appointments with neurologist. 7. 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 If unable to do still recommend follow-up with urologist. 8. Conversion disorder - ICD9: 300.11, ICD10: F44.9 - Stable, continue current medication. 9. Screening for diabetes mellitus - ICD9: V77.1, ICD10: Z13.1 - HGB A1C 10. Screening cholesterol level - ICD9: V77.91, ICD10: Z13.220 - LIPID PANEL BASIC Follow up in 1 year or sooner pending test results. Discussed treatment plan and patient voices understanding. Patient's questions answered appropriately. Medications and potential side effects were discussed and patient voices understanding. Silas Lewis APRN.GENERAL ASSISTANT This note was partially generated using PiAuto voice recognition system. Note was reviewed for accuracy. There may be minor misspellings or grammar miscues with [employer] voice recognition. documented in this encounter [facility] 12-24-2022 Miscellaneous Notes Formattin g of this note might be different from the original. Patient mother notified of recommendations, verbalizes understanding of instructions. Mother stated unable to come in with Pt due to wheel chair bound. Explained to mother to look over the papers she gets from appt. It has follow up appts and labs need to be done. Giovana Contreras LPN Can you please call the patient's mother and let her know that I will address these concerns in the office today. However I would recommend that she have a parent/guardian come with her during office visits to help guide care. She has standing orders to have the urine checked in the lab anytime. If she cannot provide a urine sample she needs to follow-up with her urologist. Please let me know if she has any further questions. Thank you. Silas Lewis APRN.DIXIE Mother reports patient has appt today with Deniz Friedman, @ 11:20 am. Asking Meat Wrapper to check patient's urine b/c it smells like BM (patient was unable to give sample in lab). Asking Meat Wrapper to check all of patient's labs, b/c patient does not feel good: specifically patient's BS. Reports patient has been drinking a lot of diet pop, and mom knows this is not helping. Mother asking Meat Wrapper to look at patient's back, right side has a bulge, from shoulder to hip. Reports you can really see it when patient sits down. Mother wonders if it's curvature of the spine. documented in this encounter [facility] 12-16-2022 Miscellaneous Notes Formattin g of this note might be different from the original. Pt was notified of results & instructions, pt states understanding. Monik Hernandez LPN TC to pt. LM to call office, ask for triage nurse to get results. Giovana Contreras LPN Can you please call the patient and let her know that her knee x-ray shows some degenerative changes which is consistent with arthritis. She may continue to use Motrin/ibuprofen 1 tablet every 6-8 hours as needed for pain. May use ice and elevate as needed. Thank you. Silas Lewis APRN.GENERAL ASSISTANT documented in this encounter [facility] 12-11-2022 Note HNO ID: [id number] Author: Latonya Foote RT(R) Service: ? Author Type: Life Sciences Instructor Type: Progress Notes Filed: 12/11/2022 3:23 PM Note Text: Radiology Service Progress Note PATIENT NAME: Karen Barrera DATE OF SERVICE: December 11, 2022 TIME: 3:05 PM PATIENT IDENTITY VERIFICATION COMPLETED USING TWO (2) IDENTIFIERS: Name and Date of confirmed by patient verbally. FALL SCREENING: Has the patient had 2 falls in the last year or 1 fall with injury or currently using an Ambulatory Assistive Device (Walker, Cane, Wheelchair, Crutches, etc.)? No PATIENT GENDER DATA: Female. status: : No status: NO. PATIENT RELEVANT IMPLANT DATA REVIEWED: Yes RADIOLOGY DEPARTMENT: General X-ray: Exam(s) Completed: Lower Extremity X-Ray(s): Knee, AP / LAT Right PERIPHERAL IV DATA: Not applicable SIGNED BY: Latonya Foote, (R) December 11, 2022 3:05 PM [facility] 12-11-2022 Note HNO ID: [id number] Author: Silas Lewis APRN.GENERAL ASSISTANT Service: ? Author Type: Nurse Practitioner Type: Progress Notes Filed: 12/11/2022 4:05 PM Note Text: This is a 42 year old female who presents today with: Patient presents with: Cough HISTORY OF PRESENT ILLNESS: Karen Barrera is a 42 year old female. Patient presents with: Cough Here in the office for acute concerns Dysuria that started about 3 days. No hematuria, fever, or chills. Staying well hydrated. History of kidney stones: Following with urology. Asthma: Taking Zyrtec 10 mg and Singulair 10 mg daily, and albuterol as needed. Not following with pulmonology. Has been seen several times in the past 6 months for chronic cough, cough is productive, green mucus. SOB with activity, using albuterol inhaler which is helpful. Has had sinus pain. Refers that her asthma does not seem to be worse at this time. No other HEENT symptoms, fever, or chills. Right Knee: Refers she had a seizure about 3-4 weeks ago and fell onto the right knee in the bathroom. Refers that pain is a constant dull ache, has tried tylenol which is helpful. Painful with ambulation. PAST MEDICAL HISTORY: PAST MEDICAL HISTORY Diagnosis Date Abnormal result of cardiovascular function study Adjustment disorder with depressed mood Chest pain Chronic factitious illness with physical symptoms Closed fracture of unspecified bone right arm Closed fracture of unspecified bone left ankle Conversion disorder Esophageal reflux Myalgia and myositis, unspecified Other forms of dyspnea Seizure disorder (HCC) 09/26/2011 SOB (shortness of breath) Unspecified asthma, with status asthmaticus PAST SURGICAL HISTORY Procedure Laterality Date CHEST X-RAY 06/16/2020 CHEST X-RAY 06/16/2020 ECHO 02/13/2022 EF60% EKG 09/30/2019 PAST SURGICAL HISTORY OF cyst removal from lower back STRESS TEST 03/10/2019 STRESS TEST 02/13/2022 ALLERGIES Dayquil Liquicaps [Lchlnvxpw-Ay-Qi-Acetaminophen ], Arithromycin [Azithromycin], Doxycycline, Latex, Mucinex Dm [Dextromethorphan-Guaifenesin] , Risperdal [Risperidone], Strawberries, Tamiflu [Oseltamivir Phosphate], Topiramate, Bextra [Valdecoxib], and Cephalexin MEDICATIONS Current Outpatient Medications Medication Sig benzonatate (TESSALON PERLES) 100 mg capsule Take 1 capsule by mouth three times daily as needed for cough. albuterol HFA (VENTOLIN HFA) 90 mcg/actuation inhaler Inhale 2 Puffs as instructed every 4 hours as needed for wheezing/shortness of breath. ibuprofen (MOTRIN) 600 mg tablet Take 1 tablet by mouth every 6 hours as needed for pain. cetirizine (ZYRTEC) 10 mg tablet Take 1 tablet by mouth once daily. montelukast (SINGULAIR) 10 mg tablet Take 1 tablet by mouth daily at bedtime. citalopram (CELEXA) 20 mg tablet 20 mg once daily. 1 tablet daily zonisamide (ZONEGRAN) 100 mg capsule Take 100 mg by mouth once daily. 2 capsules by mouth twice daily levETIRAcetam (KEPPRA) 750 mg tablet Take 750 mg by mouth twice daily. Norethindrone, Contraceptive, (ORTHO MICRONOR) 0.35 mg tablet Take 1 tablet by mouth once daily. nystatin (NYSTOP) powder Apply 1 application to affected area four times daily. iloperidone (FANAPT) 4 mg tab Take 1 tablet by mouth daily at bedtime. topiramate (TOPAMAX) 200 mg tablet Take 2 tablets by mouth twice daily. lacosamide (VIMPAT) 200 mg tab Take 2 tablets by mouth twice daily. therapeutic multivitamin ORAL Tab Take one(1) tablet daily. No current facility-administered medications for this visit. FAMILY HISTORY Problem Relation Age of Onset Asthma Mother other (Reflux) Mother other (angina) Mother Heart Father Seizures Father Seizures Brother Heart Sister ND Heart Sister Seizures Sister Young Diabetes Maternal Grandmother Stroke Maternal Grandmother other (hypoglycemia) Maternal Grandfather Social History Tobacco Use Smoking status: Never Smokeless tobacco: Never Substance Use Topics Alcohol use: No Drug use: No REVIEW OF SYSTEMS GENERAL: No weight loss, malaise or fevers/chills HEENT: + Sinus Pressure NECK: Negative for lumps, goiter, pain and significant neck swelling RESPIRATORY: + Cough/SOB CARDIOVASCULAR: Negative for chest pain, leg swelling, orthopnea, or palpitations GI: No nausea, vomiting, or diarrhea/constipation. No hematochezia/melena. No heartburn or reflux symptoms. : + Dysuria MUSCULOSKELETAL: Negative for joint pain or swelling. SKIN: Negative for lesions, rash, and itching ENDOCRINE: Negative for cold or heat intolerance, polyuria, polydipsia and goiter NEURO: No history of headaches, syncope, paralysis, seizures or tremors MOOD: Negative for depression, anxiety, or suicidal ideation. EXAM: LMP 02/26/2021 PHYSICAL EXAM: General Appearance: Well appearing, alert, in no acute distress, well-hydrated, well nourished. Skin: Skin color, texture, turgor normal, no suspicious rashes or les (more content not included)... [facility] 12-11-2022 Instructions Silas Lewis APRN.CNP - 12/11/2022 2:29 PM EDT Get xray completed Provide urine sample in the lab today Stay well hydrated. May use flonase mist nasal spray 1-2 times per day. May use Tessalon perles as needed for cough. Follow up pending test results. documented in this encounter [facility] 12-11-2022 History of Presen t illness Narrative This is a 42 year old female who presents today with: Patient presents with: Cough HISTORY OF PRESENT ILLNESS: Karen Barrera is a 42 year old female. Patient presents with: Cough Here in the office for acute concerns Dysuria that started about 3 days. No hematuria, fever, or chills. Staying well hydrated. History of kidney stones: Following with urology. Asthma: Taking Zyrtec 10 mg and Singulair 10 mg daily, and albuterol as needed. Not following with pulmonology. Has been seen several times in the past 6 months for chronic cough, cough is productive, green mucus. SOB with activity, using albuterol inhaler which is helpful. Has had sinus pain. Refers that her asthma does not seem to be worse at this time. No other HEENT symptoms, fever, or chills. Right Knee: Refers she had a seizure about 3-4 weeks ago and fell onto the right knee in the bathroom. Refers that pain is a constant dull ache, has tried tylenol which is helpful. Painful with ambulation. PAST MEDICAL HISTORY: PAST MEDICAL HISTORY Diagnosis Date Abnormal result of cardiovascular function study Adjustment disorder with depressed mood Chest pain Chronic factitious illness with physical symptoms Closed fracture of unspecified bone right arm Closed fracture of unspecified bone left ankle Conversion disorder Esophageal reflux Myalgia and myositis, unspecified Other forms of dyspnea Seizure disorder (HCC) 09/26/2011 SOB (shortness of breath) Unspecified asthma, with status asthmaticus PAST SURGICAL HISTORY Procedure Laterality Date CHEST X-RAY 06/16/2020 CHEST X-RAY 06/16/2020 ECHO 02/13/2022 EF60% EKG 09/30/2019 PAST SURGICAL HISTORY OF cyst removal from lower back STRESS TEST 03/10/2019 STRESS TEST 02/13/2022 ALLERGIES Dayquil Liquicaps [Zlcypkrib-Ds-Kr-Acetaminophen ], Arithromycin [Azithromycin], Doxycycline, Latex, Mucinex Dm [Dextromethorphan-Guaifenesin] , Risperdal [Risperidone], Strawberries, Tamiflu [Oseltamivir Phosphate], Topiramate, Bextra [Valdecoxib], and Cephalexin MEDICATIONS Current Outpatient Medications Medication Sig benzonatate (TESSALON PERLES) 100 mg capsule Take 1 capsule by mouth three times daily as needed for cough. albuterol HFA (VENTOLIN HFA) 90 mcg/actuation inhaler Inhale 2 Puffs as instructed every 4 hours as needed for wheezing/shortness of breath. ibuprofen (MOTRIN) 600 mg tablet Take 1 tablet by mouth every 6 hours as needed for pain. cetirizine (ZYRTEC) 10 mg tablet Take 1 tablet by mouth once daily. montelukast (SINGULAIR) 10 mg tablet Take 1 tablet by mouth daily at bedtime. citalopram (CELEXA) 20 mg tablet 20 mg once daily. 1 tablet daily zonisamide (ZONEGRAN) 100 mg capsule Take 100 mg by mouth once daily. 2 capsules by mouth twice daily levETIRAcetam (KEPPRA) 750 mg tablet Take 750 mg by mouth twice daily. Norethindrone, Contraceptive, (ORTHO MICRONOR) 0.35 mg tablet Take 1 tablet by mouth once daily. nystatin (NYSTOP) powder Apply 1 application to affected area four times daily. iloperidone (FANAPT) 4 mg tab Take 1 tablet by mouth daily at bedtime. topiramate (TOPAMAX) 200 mg tablet Take 2 tablets by mouth twice daily. lacosamide (VIMPAT) 200 mg tab Take 2 tablets by mouth twice daily. therapeutic multivitamin ORAL Tab Take one(1) tablet daily. No current facility-administered medications for this visit. FAMILY HISTORY Problem Relation Age of Onset Asthma Mother other (Reflux) Mother other (angina) Mother Heart Father Seizures Father Seizures Brother Heart Sister ND Heart Sister Seizures Sister Young Diabetes Maternal Grandmother Stroke Maternal Grandmother other (hypoglycemia) Maternal Grandfather Social History Tobacco Use Smoking status: Never Smokeless tobacco: Never Substance Use Topics Alcohol use: No Drug use: No REVIEW OF SYSTEMS GENERAL: No weight loss, malaise or fevers/chills HEENT: + Sinus Pressure NECK: Negative for lumps, goiter, pain and significant neck swelling RESPIRATORY: + Cough/SOB CARDIOVASCULAR: Negative for chest pain, leg swelling, orthopnea, or palpitations GI: No nausea, vomiting, or diarrhea/constipation. No hematochezia/melena. No heartburn or reflux symptoms. : + Dysuria MUSCULOSKELETAL: Negative for joint pain or swelling. SKIN: Negative for lesions, rash, and itching ENDOCRINE: Negative for cold or heat intolerance, polyuria, polydipsia and goiter NEURO: No history of headaches, syncope, paralysis, seizures or tremors MOOD: Negative for depression, anxiety, or suicidal ideation. EXAM: [facility] 02/26/2021 PHYSICAL EXAM: General Appearance: Well appearing, alert, in no acute distress, well-hydrated, well nourished. Skin: Skin color, texture, turgor normal, no suspicious rashes or lesions. Head: Normocephalic, no masses, lesions, tenderness or abnormalities. Eyes: Anicteric sclera. Pupils are equally round and reactive to light. Extraocular movements are intact. Ears: External ears normal, canals clear. TMs pearly copeland. Nose/Sinuses: Nares normal, septum midline, mucosa normal, no drainage. + mild frontal and maxillary sinus tenderness. Oropharynx: Lips, mucosa, and tongue normal, teeth and gums normal, oropharynx normal. Neck: Supple, no adenopathy; thyroid symmetric, normal size, no bruits. Lungs: Lungs clear to auscultation. No wheezing, rhonchi, rales. Heart: RRR without murmur, gallop, or rubs. No ectopy. Abdomen: Abdomen soft, non-tender. Bowel sounds normal. No masses, organomegaly. Extremities: No deformities, edema, skin discoloration, clubbing or cyanosis. Good capillary refill. Musculoskeletal: Right knee, full ROM, tenderness noted on the lateral and medial aspect of the patella, no crepitus noted, negative valgus/varus. Peripheral Pulses: Normal, Capillary refill <2secs, strong peripheral pulses, Pulses palpable. Neurologic: Gait normal. Reflexes normal and symmetric. Sensation grossly intact. ASSESSMENT/PLAN: 1. Moderate persistent asthma with acute exacerbation - ICD9: 493.92, ICD10: J45.41 (primary diagnosis) - Mild intermittent asthma stable - Continue current medications - Avoidance of triggers recommended 2. Acute cough - ICD9: 786.2, ICD10: R05.1 - Due to on going respiratory symptoms, may need spirometry and further work-up in the future. - BENZONATATE 100 MG CAPSULE 3. Sinus congestion - ICD9: 478.19, ICD10: R09.81 - Recommend using Flonase 1-2 times per day - FLONASE SENSIMIST 27.5 MCG/ACTUATION NASAL SPRAY,SUSPENSION 4. Rhinorrhea - ICD9: 478.19, ICD10: J34.89 - Refill provided. - CETIRIZINE 10 MG TABLET 5. Acute pain of right knee - ICD9: 719.46, ICD10: M25.561 - Get xray completed. - Continue supportive care at home, RICE therapy. - XR KNEE LIMITED 2V AP/LAT RIGHT - IBUPROFEN 600 MG TABLET 6. Dysuria - ICD9: 788.1, ICD10: R30.0 acute Unable to provide urine sample in office. - Instructed to provide sample to the lab. - Increase water intake. - URINALYSIS, WITH MICROSCOPIC - URINE CULTURE Follow-up pending test results or sooner as needed. Discussed treatment plan and patient voices understanding. Patient's questions answered appropriately. Medications and potential side effects were discussed and patient voices understanding. Silas Lewis APRN.GENERAL ASSISTANT This note was partially generated using PiAuto voice recognition system. Note was reviewed for accuracy. There may be minor misspellings or grammar miscues with PiAuto voice recognition. documented in this encounter [facility] 10-20-2022 Miscellaneous Notes Formattin g of this note might be different from the original. Patient notified and verbalized understanding Sherlyn Madrigal Cma OK for amoxicillin as ordered Daniel Chun MD Patient calls and states that she started the antibiotic prescribed yesterday. Patient had one episode of diarrhea one hour after taking medication. Patient did not take any more Cefdinir since episode. Patient denies any more episodes. Patient is requesting a different antibiotic either Augmentin or Amoxicillin. Please review and advise, Queta Garcia RN Reason for Disposition Patient wants to stop the antibiotic Answer Assessment - Initial Assessment Questions 1. ANTIBIOTIC: Cefdinir; Patient only took antibiotic once and had diarrhea 1 hour afterwards. Patient has not take any other does. 2. ANTIBIOTIC ONSET: Patient started taking antibiotic yesterday morning. 3. DIARRHEA SEVERITY: Patient has had 1 loose stool in 24 hour period. Patient had episode in the morning. 4. ONSET: Only one episode yesterday morning. 5. BM CONSISTENCY: watery 6. VOMITING: Denies vomiting 7. ABDOMINAL PAIN: Denies abdominal pain 8. ABDOMINAL PAIN SEVERITY: Denies abdominal pain 9. HYDRATION: Denies dehydration symptoms. 10. OTHER SYMPTOMS: Denies other symptoms Protocols used: Diarrhea on [id number] documented in this encounter [facility] 10-18-2022 Miscellaneous Notes Formattin g of this note might be different from the original. Spoke with pt and information listed below given. Pt verbalizes understanding. Ángela Villa LPN OK for Omnicef and Tessalon as ordered Daniel Chun MD Pt called back and the bronchitis is still persisting. Pt reports productive cough and coughing up green phlegm and chest congestion. Pt was seen for this 09/18/22. She did complete ATB at that time. Denies; shortness of breath, fever, abdominal pain Pt declines coming into [facility] because she has no transportation. Please advise pt. Ángela Villa LPN documented in this encounter [facility] 09-22-2022 Miscellaneous Notes Formattin g of this note might be different from the original. Pt mother and pt notified. Mariana Gamez Ma TC to patient with no answer. Unable to leave , please try again later. PRESLEY Lebron Please notify patient that her A1c is normal. Daniel Chun MD documented in this encounter [facility] 09-18-2022 Note HNO ID: [id number] Author: Daniel Chun MD Service: ? Author Type: Physician Type: Progress Notes Filed: 09/18/2022 4:51 PM Note Text: Chief Complaint Patient presents with: Cough HPI Karen Barrera is a 42 year old female who presents here today for cough. Pt c/o cough up phlegm, chest congestion, head congestion, runny nose, sneezing, sore throat, ear pain, some SOB and wheezing x 1 week. Denies any fevers that she is aware of, states her face gets red and hot but doesn't have a thermometer to check temp. Has used Robitussin but it is not helping. Takes Zyrtec and Singulair for allergies and uses Albuterol inhaler twice daily. Pt states her mother has been sick with same sx. Has not tested for Covid. Was sick with similar sx in July, treated with 5 pills prednisone and tessalon perles. Request having A1c checked; history of elevated glucose. Past medical history, appointments, medications, allergies reviewed. Previous Medical History PAST MEDICAL HISTORY Diagnosis Date Abnormal result of cardiovascular function study Adjustment disorder with depressed mood Chest pain Chronic factitious illness with physical symptoms Closed fracture of unspecified bone right arm Closed fracture of unspecified bone left ankle Conversion disorder Esophageal reflux Myalgia and myositis, unspecified Other forms of dyspnea Seizure disorder (HCC) 09/26/2011 SOB (shortness of breath) Unspecified asthma, with status asthmaticus Previous Surgical History PAST SURGICAL HISTORY Procedure Laterality Date CHEST X-RAY 06/16/2020 CHEST X-RAY 06/16/2020 ECHO 02/13/2022 EF60% EKG 09/30/2019 PAST SURGICAL HISTORY OF cyst removal from lower back STRESS TEST 03/10/2019 STRESS TEST 02/13/2022 Family History FAMILY HISTORY Problem Relation Age of Onset Asthma Mother other (Reflux) Mother other (angina) Mother Heart Father Seizures Father Seizures Brother Heart Sister ND Heart Sister Seizures Sister Young Diabetes Maternal Grandmother Stroke Maternal Grandmother other (hypoglycemia) Maternal Grandfather Patient Allergies ALLERGIES Allergen Reactions Dayquil Liquicaps [* Other: See Comments Caused Seizure Arithromycin [Azith* GI Upset Z-Pack Doxycycline GI Upset Latex Rash Mucinex Dm [Dextrom* Intolerance gran mal seizure. but can take robitussin-DM for cough without effect Risperdal [Risperid* Other: See Comments Caused seizure pt report Strawberries Hives Tamiflu [Oseltamivi* Other: See Comments Almost caused seizure Topiramate Other: See Comments Generic causes Seizures. Able to take name brand Topamax Bextra [Valdecoxib] Rash Cephalexin Intolerance Amoxil is ok Current Medications Current Outpatient Medications on File Prior to Visit Medication Sig benzonatate (TESSALON PERLES) 100 mg capsule Take 1 capsule by mouth three times daily as needed for cough. predniSONE (DELTASONE) 20 mg tablet Take 1 tablet by mouth once daily. ibuprofen (MOTRIN) 600 mg tablet Take 1 tablet by mouth every 6 hours as needed for pain. cetirizine (ZYRTEC) 10 mg tablet Take 1 tablet by mouth once daily. montelukast (SINGULAIR) 10 mg tablet Take 1 tablet by mouth daily at bedtime. albuterol HFA (VENTOLIN HFA) 90 mcg/actuation inhaler Inhale 2 Puffs as instructed every 4 hours as needed for wheezing/shortness of breath. citalopram (CELEXA) 20 mg tablet 20 mg once daily. 1 tablet daily zonisamide (ZONEGRAN) 100 mg capsule Take 100 mg by mouth once daily. 2 capsules by mouth twice daily levETIRAcetam (KEPPRA) 750 mg tablet Take 750 mg by mouth twice daily. Norethindrone, Contraceptive, (ORTHO MICRONOR) 0.35 mg tablet Take 1 tablet by mouth once daily. (Patient not taking: No sig reported) nystatin (NYSTOP) powder Apply 1 application to affected area four times daily. (Patient not taking: No sig reported) iloperidone (FANAPT) 4 mg tab Take 1 tablet by mouth daily at bedtime. topiramate (TOPAMAX) 200 mg tablet Take 2 tablets by mouth twice daily. lacosamide (VIMPAT) 200 mg tab Take 2 tablets by mouth twice daily. therapeutic multivitamin ORAL Tab Take one(1) tablet daily. No current facility-administered medications on file prior to visit. Social History Social History Tobacco Use Smoking status: Never Smokeless tobacco: Never Substance Use Topics Alcohol use: No Drug use: No EXAM: BP 128/88 Pulse 96 Temp 36.6 ?C (97.9 ?F) (Tympanic) Resp 20 Wt (!) 151.3 kg (333 lb 9.6 oz) LMP 02/26/2021 SpO2 97% BMI 55.51 kg/m? General Appearance: Well appearing, alert, in no acute distress, well-hydrated, well nourished. and Morbidly obese. Lungs: Lungs clear to auscultation. No wheezing, rhonchi, rales.. Heart: RRR without murmur, gallop, or rubs. No ectopy. Health Maintenance List HEPATITIS B(1 of 3 - 3-dose series) Never done COVID-19 VACCINE(1) Never done PNEUMOCOCCAL(1 - PCV) Never done SPIROMETRY N (more content not included)... [facility] 09-18-2022 History of Presen t illness Narrative Chief Complaint Patient presents with: Cough HPI Karen Barrera is a 42 year old female who presents here today for cough. Pt c/o cough up phlegm, chest congestion, head congestion, runny nose, sneezing, sore throat, ear pain, some SOB and wheezing x 1 week. Denies any fevers that she is aware of, states her face gets red and hot but doesn't have a thermometer to check temp. Has used Robitussin but it is not helping. Takes Zyrtec and Singulair for allergies and uses Albuterol inhaler twice daily. Pt states her mother has been sick with same sx. Has not tested for Covid. Was sick with similar sx in July, treated with 5 pills prednisone and tessalon perles. Request having A1c checked; history of elevated glucose. Past medical history, appointments, medications, allergies reviewed. Previous Medical History PAST MEDICAL HISTORY Diagnosis Date Abnormal result of cardiovascular function study Adjustment disorder with depressed mood Chest pain Chronic factitious illness with physical symptoms Closed fracture of unspecified bone right arm Closed fracture of unspecified bone left ankle Conversion disorder Esophageal reflux Myalgia and myositis, unspecified Other forms of dyspnea Seizure disorder (HCC) 09/26/2011 SOB (shortness of breath) Unspecified asthma, with status asthmaticus Previous Surgical History PAST SURGICAL HISTORY Procedure Laterality Date CHEST X-RAY 06/16/2020 CHEST X-RAY 06/16/2020 ECHO 02/13/2022 EF60% EKG 09/30/2019 PAST SURGICAL HISTORY OF cyst removal from lower back STRESS TEST 03/10/2019 STRESS TEST 02/13/2022 Family History FAMILY HISTORY Problem Relation Age of Onset Asthma Mother other (Reflux) Mother other (angina) Mother Heart Father Seizures Father Seizures Brother Heart Sister ND Heart Sister Seizures Sister Young Diabetes Maternal Grandmother Stroke Maternal Grandmother other (hypoglycemia) Maternal Grandfather Patient Allergies ALLERGIES Allergen Reactions Dayquil Liquicaps [* Other: See Comments Caused Seizure Arithromycin [Azith* GI Upset Z-Pack Doxycycline GI Upset Latex Rash Mucinex Dm [Dextrom* Intolerance gran mal seizure. but can take robitussin-DM for cough without effect Risperdal [Risperid* Other: See Comments Caused seizure pt report Strawberries Hives Tamiflu [Oseltamivi* Other: See Comments Almost caused seizure Topiramate Other: See Comments Generic causes Seizures. Able to take name brand Topamax Bextra [Valdecoxib] Rash Cephalexin Intolerance Amoxil is ok Current Medications Current Outpatient Medications on File Prior to Visit Medication Sig benzonatate (TESSALON PERLES) 100 mg capsule Take 1 capsule by mouth three times daily as needed for cough. predniSONE (DELTASONE) 20 mg tablet Take 1 tablet by mouth once daily. ibuprofen (MOTRIN) 600 mg tablet Take 1 tablet by mouth every 6 hours as needed for pain. cetirizine (ZYRTEC) 10 mg tablet Take 1 tablet by mouth once daily. montelukast (SINGULAIR) 10 mg tablet Take 1 tablet by mouth daily at bedtime. albuterol HFA (VENTOLIN HFA) 90 mcg/actuation inhaler Inhale 2 Puffs as instructed every 4 hours as needed for wheezing/shortness of breath. citalopram (CELEXA) 20 mg tablet 20 mg once daily. 1 tablet daily zonisamide (ZONEGRAN) 100 mg capsule Take 100 mg by mouth once daily. 2 capsules by mouth twice daily levETIRAcetam (KEPPRA) 750 mg tablet Take 750 mg by mouth twice daily. Norethindrone, Contraceptive, (ORTHO MICRONOR) 0.35 mg tablet Take 1 tablet by mouth once daily. (Patient not taking: No sig reported) nystatin (NYSTOP) powder Apply 1 application to affected area four times daily. (Patient not taking: No sig reported) iloperidone (FANAPT) 4 mg tab Take 1 tablet by mouth daily at bedtime. topiramate (TOPAMAX) 200 mg tablet Take 2 tablets by mouth twice daily. lacosamide (VIMPAT) 200 mg tab Take 2 tablets by mouth twice daily. therapeutic multivitamin ORAL Tab Take one(1) tablet daily. No current facility-administered medications on file prior to visit. Social History Social History Tobacco Use Smoking status: Never Smokeless tobacco: Never Substance Use Topics Alcohol use: No Drug use: No EXAM: BP 128/88 Pulse 96 Temp 36.6 C (97.9 F) (Tympanic) Resp 20 Wt (!) 151.3 kg (333 lb 9.6 oz) LMP 02/26/2021 SpO2 97% BMI 55.51 kg/m General Appearance: Well appearing, alert, in no acute distress, well-hydrated, well nourished. and Morbidly obese. Lungs: Lungs clear to auscultation. No wheezing, rhonchi, rales.. Heart: RRR without murmur, gallop, or rubs. No ectopy. Health Maintenance List HEPATITIS B(1 of 3 - 3-dose series) Never done COVID-19 VACCINE(1) Never done PNEUMOCOCCAL(1 - PCV) Never done SPIROMETRY Never done HEPATITIS C SCREENING Never done DEPRESSION ASSESSMENT Never done MAMMOGRAM Never done INFLUENZA(Season Ended) due on 12/19/2022 PAP TESTING due on 06/03/2023 HPV TESTING due on 06/03/2023 ANNUAL PCP TEAM CHRONIC DISEASE VISIT due on 07/30/2023 DTAP,TDAP,TD(2 - Td or Tdap) due on 06/03/2028 HIV SCREENING Completed Data reviewed None ASSESSMENT/PLAN: 1. Sinobronchitis - ICD9: 473.9, 490, ICD10: J32.9, J40 Start 3 days of Prednisone 40 mg a day Start Augmentin BID x 7 days Tessalon perles and albuterol inhaler sent 2. Moderate persistent asthma with acute exacerbation - ICD9: 493.92, ICD10: J45.41 - Mild intermittent asthma stable - Continue current medications - Avoidance of triggers recommended Will check A1c today; notify of result Follow up as needed or if sx do not improve. I agree with the Chief Complaint, ROS, and Past Histories independently gathered by the clinical direct support specialist and the remaining scribed note accurately describes my personal service to the patient. Medical Decision Making: Problems: Low: Acute, uncomplicated illness or injury Data: Unique test(s) ordered: 1 Risk: Moderate: Drug management Medical Decision Making Level: 3 - Low Daniel Chun MD The documentation for this note was completed by Mariana Gamez Ma acting as scribe for Daniel Chun MD. September 18, 2022 4:28 PM. Mariana Gamez Ma documented in this encounter [facility] 08-20-2022 Note Patient Outreach (IN [facility]) KAREN BARRERA ([id number]) 1980 F Date Time Provider Department 08/20/22 DANIEL CHUN During your visit today, we recorded the following information about you: Allergies As of Date: 08/20/2022 Noted Allergy Reaction DAYQUIL LIQUICAPS ([id number]*09/27/2012 14 - Other: See Comments Comments: Caused Seizure ARITHROMYCIN (AZITHROMYCIN) 10/27/2012 8 - GI Upset Comments: Z-Pack DOXYCYCLINE 07/22/2008 8 - GI Upset LATEX 08/21/2005 2 - Rash MUCINEX DM (DEXTROMETHORPHAN-GUAI* 009 5 - Intolerance Comments: gran mal seizure. but can take robitussin-DM for cough without effect RISPERDAL (RISPERIDONE) 09/28/2012 14 - Other: See Comments Comments: Caused seizure pt report STRAWBERRIES 11/10/2016 4 - Hives TAMIFLU (OSELTAMIVIR PHOSPHATE) 05/17/2012 14 - Other: See Comments Comments: Almost caused seizure TOPIRAMATE 06/04/2012 14 - Other: See Comments Comments: Generic causes Seizures. Able to take name brand Topamax BEXTRA (VALDECOXIB) 12/30/2004 2 - Rash CEPHALEXIN 12/30/2004 5 - Intolerance Comments: Amoxil is ok Date Reviewed: 07/29/2022 Reviewed by: Sherlyn Hood MA - Fully Assessed Visit Diagnosis:Encounter for screening mammogram for breast cancer [Z12.31] Order(s):[facility] SCREENING [[id number]] Order #: [id number] FUTURE Prescriptions as of 08/25/2022 - benzonatate (TESSALON PERLES) 100 mg capsule Take 1 capsule by mouth three times daily as needed for cough. - predniSONE (DELTASONE) 20 mg tablet Take 1 tablet by mouth once daily. - ibuprofen (MOTRIN) 600 mg tablet Take 1 tablet by mouth every 6 hours as needed for pain. - cetirizine (ZYRTEC) 10 mg tablet Take 1 tablet by mouth once daily. - montelukast (SINGULAIR) 10 mg tablet Take 1 tablet by mouth daily at bedtime. - albuterol HFA (VENTOLIN HFA) 90 mcg/actuation inhaler Inhale 2 Puffs as instructed every 4 hours as needed for wheezing/shortness of breath. - citalopram (CELEXA) 20 mg tablet 20 mg once daily. 1 tablet daily - zonisamide (ZONEGRAN) 100 mg capsule Take 100 mg by mouth once daily. 2 capsules by mouth twice daily - levETIRAcetam (KEPPRA) 750 mg tablet Take 750 mg by mouth twice daily. - Norethindrone, Contraceptive, (ORTHO MICRONOR) 0.35 mg tablet Take 1 tablet by mouth once daily. - nystatin (NYSTOP) powder Apply 1 application to affected area four times daily. - iloperidone (FANAPT) 4 mg tab Take 1 tablet by mouth daily at bedtime. - topiramate (TOPAMAX) 200 mg tablet Take 2 tablets by mouth twice daily. - lacosamide (VIMPAT) 200 mg tab Take 2 tablets by mouth twice daily. - therapeutic multivitamin ORAL Tab Take one(1) tablet daily. Meds Comments as of 01/02/2018: September 26, 2017 currently taking vimpat, topamax and zonegran December 09, 2017 does not have list, unable to verify list. Aurora Doan Ma 01-02-18 Taking Vimpat, Zonegran, and Albuterol. Shanique Wall RN Problem List As Of Date 08/20/2022 Noted Resolved Other malaise and fatigue [R53.81, R53.83] 12/30/2004 11/06/2014 Myalgia and myositis, unspecified [HAE3692] 05/08/2014 ESOPHAGEAL REFLUX [K21.9] Chronic factitious illness with physical sympto* 10/08/2015 Asthma with status asthmaticus [J45.902] ADJUSTMENT DISORDER WITH DEPRESSED MOOD [F43.21] CONVERSION DISORDER [F44.9] URGE AND STRESS MIXED INCONTINENCE [N39.46] 09/24/2005 Seizure disorder [G40.909] 09/26/2011 Irregular menses [N92.6] 10/03/2011 10/27/2012 Hirsutism [L68.0] 10/03/2011 Hyperandrogenism [E28.8] 10/03/2011 Hyperprolactinemia [E22.1] 12/30/2011 PCOS (polycystic ovarian syndrome) [E28.2] 12/30/2011 Low back pain [M54.50] 05/11/2013 Morbid obesity (HCC) [E66.01] 08/03/2014 Asthma with acute exacerbation [J45.901] 07/08/2016 Delusional disorder (HCC) [F22] 11/10/2016 Sprain of other specified parts of right knee, *07/16/2017 Sprain of right ankle, subsequent encounter [S9*07/16/2017 Obesity, Class III, BMI >= 40 [E66.01] 06/03/2018 Encounter Status:Closed by ANNETTA ROSENBERG on 08/25/22 [facility] 08-08-2022 Miscellaneous Notes Formattin g of this note might be different from the original. Kennedi notified. Mariana Gamez Ma Yes, she may use Salonpas patches Daniel Chun MD Mother (Kennedi) calls to ask if it would be ok for patient to use Salonpas Patches to bilateral knees for arthritic pain since she is on so many other medications. Please review and advise, Gabriella Cano RN documented in this encounter [facility] 08-01-2022 Miscellaneous Notes Formattin g of this note might be different from the original. Pt notified. Mariana Gamez Ma Message left for patient to return call for update on results. ----- Message from Jess James APRN.CNP sent at 07/30/2022 6:02 AM EDT ----- Please let the patient know that her COVID testing was negative. Jess James CNP documented in this encounter [facility] 07-29-2022 Note HNO ID: [id number] Author: Jess James APRN.CNP Service: ? Author Type: Nurse Practitioner Type: Progress Notes Filed: 07/29/2022 2:27 PM Note Text: Chief Complaint Patient presents with: URI: X 1 week HPI Karen Barrera is a 42 year old female who presents here today for Above Complaints. ENT: Patient complains of chest congestion. Duration: Approximately 1 week Fever: No. Headache: No. Sore throat: No. Ear pain: Yes. Nasal drainage: Yes. Cough: Yes. Shortness of breath: No. Nausea: Yes. Vomiting: No. Diarrhea: No. Previous treatment: No. Not using any [id number] medications. Patient has a history of asthma. Requesting refill of albuterol inhaler. Also requesting refill of Singulair, Zyrtec, and morning Tessalon Perles. Sick contacts include niece. Unsure if she had COVID. Past medical history, appointments, medications, allergies reviewed. EXAM: BP 106/86 Pulse 86 Temp 37.1 ?C (98.7 ?F) (Left Tympanic) Resp 20 Wt (!) 152.4 kg (336 lb) LMP 02/26/2021 SpO2 96% BMI 55.91 kg/m? General Appearance: Well appearing, alert, in no acute distress, well-hydrated, well nourished. and Obese. Head: Normocephalic, no masses, lesions, tenderness or abnormalities. Eyes: Anicteric sclera. Pupils are equally round and reactive to light. Extraocular movements are intact. . Ears: External ears normal, canals clear. Nose/Sinuses: Positive findings: mucosa erythematous and swollen. Oropharynx: Lips, mucosa, and tongue normal, teeth and gums normal, oropharynx normal. Lungs: Lungs clear to auscultation. No wheezing, rhonchi, rales. Cough. Heart: RRR without murmur, gallop, or rubs. No ectopy. ASSESSMENT/PLAN: 1. Sinobronchitis - ICD9: 473.9, 490, ICD10: J32.9, J40 (primary diagnosis) - Will begin treatment with as per antibiotic as written, see orders - The patient should also be given OTC cough and cold meds as needed for the first 5-7 days of treatment. - Supportive care with plenty of fluids, rest, and analgesia prn. - Follow up in 3-5 days if symptoms persist or worsen. - AMOXICILLIN 875 MG TABLET - BENZONATATE 100 MG CAPSULE - PREDNISONE 20 MG TABLET 2. Rhinorrhea - ICD9: 478.19, ICD10: J34.89 - CETIRIZINE 10 MG TABLET 3. Moderate persistent asthma with acute exacerbation - ICD9: 493.92, ICD10: J45.41 Moderate persistent Asthma stable - Continue current meds - Avoidance of triggers recommended - MONTELUKAST 10 MG TABLET - ALBUTEROL SULFATE HFA 90 MCG/ACTUATION AEROSOL INHALER 4. Suspected COVID-19 virus infection - ICD9: V01.79, ICD10: Z20.822 -Rule out - COVID WITH FLUA+B, ROUTINE Jess James APRN.DIXIE This note was partly generated using PiAuto voice recognition dictation and may contain some misspelled or inaccurate words missed on review. [facility] 07-29-2022 History of Presen t illness Narrative Chief Complaint Patient presents with: URI: X 1 week HPI Karen Barrera is a 42 year old female who presents here today for Above Complaints. ENT: Patient complains of chest congestion. Duration: Approximately 1 week Fever: No. Headache: No. Sore throat: No. Ear pain: Yes. Nasal drainage: Yes. Cough: Yes. Shortness of breath: No. Nausea: Yes. Vomiting: No. Diarrhea: No. Previous treatment: No. Not using any hqso-ykk-hmulcxw medications. Patient has a history of asthma. Requesting refill of albuterol inhaler. Also requesting refill of Singulair, Zyrtec, and morning Tessalon Perles. Sick contacts include niece. Unsure if she had COVID. Past medical history, appointments, medications, allergies reviewed. EXAM: BP 106/86 Pulse 86 Temp 37.1 C (98.7 F) (Left Tympanic) Resp 20 Wt (!) 152.4 kg (336 lb) LMP 02/26/2021 SpO2 96% BMI 55.91 kg/m General Appearance: Well appearing, alert, in no acute distress, well-hydrated, well nourished. and Obese. Head: Normocephalic, no masses, lesions, tenderness or abnormalities. Eyes: Anicteric sclera. Pupils are equally round and reactive to light. Extraocular movements are intact. . Ears: External ears normal, canals clear. Nose/Sinuses: Positive findings: mucosa erythematous and swollen. Oropharynx: Lips, mucosa, and tongue normal, teeth and gums normal, oropharynx normal. Lungs: Lungs clear to auscultation. No wheezing, rhonchi, rales. Cough. Heart: RRR without murmur, gallop, or rubs. No ectopy. ASSESSMENT/PLAN: 1. Sinobronchitis - ICD9: 473.9, 490, ICD10: J32.9, J40 (primary diagnosis) - Will begin treatment with as per antibiotic as written, see orders - The patient should also be given OTC cough and cold meds as needed for the first 5-7 days of treatment. - Supportive care with plenty of fluids, rest, and analgesia prn. - Follow up in 3-5 days if symptoms persist or worsen. - AMOXICILLIN 875 MG TABLET - BENZONATATE 100 MG CAPSULE - PREDNISONE 20 MG TABLET 2. Rhinorrhea - ICD9: 478.19, ICD10: J34.89 - CETIRIZINE 10 MG TABLET 3. Moderate persistent asthma with acute exacerbation - ICD9: 493.92, ICD10: J45.41 Moderate persistent Asthma stable - Continue current meds - Avoidance of triggers recommended - MONTELUKAST 10 MG TABLET - ALBUTEROL SULFATE HFA 90 MCG/ACTUATION AEROSOL INHALER 4. Suspected COVID-19 virus infection - ICD9: V01.79, ICD10: Z20.822 -Rule out - COVID WITH FLUA+B, ROUTINE Jess James APRN.GENERAL ASSISTANT This note was partly generated using [employer] voice recognition dictation and may contain some misspelled or inaccurate words missed on review. documented in this encounter [facility] 07-14-2022 Miscellaneous Notes Formattin g of this note might be different from the original. Reason for call: Patient calling to reschedule appointment with cardiology. Patient was transferred to [facility] due to chest pain this morning and last night. Patient states pain was located on left side and last night she took nitrostat. Patient notes patient has been increasing in frequency. Patient denies shortness of breath at this time. Outcome: Patient declines ED recommendation. I spoke with Nurse Sally from [facility] who recommends the patient go to ED as well. I informed the patient and she states she will go to [facility] for evaluation. Reason for Disposition [1] Chest pain (or angina ) comes and goes AND [2] is happening more often (increasing in frequency) or getting worse (increasing in severity) (Exception: chest pains that last only a few seconds) Protocols used: Chest [id number] documented in this encounter [facility] 06-16-2022 Note HNO ID: [id number] Author: BRIDGETTE Weber Service: ? Author Type: Physician Oil Winterizer Type: Progress Notes Filed: 06/16/2022 12:02 PM Note Text: This note was created using [employer]. Subjective Karen Barrera is a 41 year old female. HPI 41-year-old female presents for cough and congestion. Patient states she has had a cough and nasal congestion for about a week. She has sinus pressure and pain. She has history of asthma. She has been using her inhalers. No vomiting or diarrhea. No chest pain or shortness of breath. She was treated for sinobronchitis at the end of April. States symptoms improved up until about a week ago. Denies any sick contacts. PAST MEDICAL HISTORY Diagnosis Date Abnormal result of cardiovascular function study Adjustment disorder with depressed mood Chest pain Chronic factitious illness with physical symptoms Closed fracture of unspecified bone right arm Closed fracture of unspecified bone left ankle Conversion disorder Esophageal reflux Myalgia and myositis, unspecified Other forms of dyspnea Seizure disorder (HCC) 09/26/2011 SOB (shortness of breath) Unspecified asthma, with status asthmaticus PAST SURGICAL HISTORY Procedure Laterality Date CHEST X-RAY 06/16/2020 CHEST X-RAY 06/16/2020 ECHO 02/13/2022 EF60% EKG 09/30/2019 PAST SURGICAL HISTORY OF cyst removal from lower back STRESS TEST 03/10/2019 STRESS TEST 02/13/2022 ALLERGIES Dayquil Liquicaps [Ykmcfwztw-Up-Gx-Acetaminophen ], Arithromycin [Azithromycin], Doxycycline, Latex, Mucinex Dm [Dextromethorphan-Guaifenesin] , Risperdal [Risperidone], Strawberries, Tamiflu [Oseltamivir Phosphate], Topiramate, Bextra [Valdecoxib], and Cephalexin MEDICATIONS albuterol HFA (VENTOLIN HFA) 90 mcg/actuation inhaler Inhale 2 Puffs as instructed every 4 hours as needed for wheezing/shortness of breath. citalopram (CELEXA) 20 mg tablet 20 mg once daily. 1 tablet daily zonisamide (ZONEGRAN) 100 mg capsule Take 100 mg by mouth once daily. 2 capsules by mouth twice daily levETIRAcetam (KEPPRA) 750 mg tablet Take 750 mg by mouth twice daily. cetirizine (ZYRTEC) 10 mg tablet Take 1 tablet by mouth once daily. montelukast (SINGULAIR) 10 mg tablet Take 1 tablet by mouth daily at bedtime. iloperidone (FANAPT) 4 mg tab Take 1 tablet by mouth daily at bedtime. topiramate (TOPAMAX) 200 mg tablet Take 2 tablets by mouth twice daily. lacosamide (VIMPAT) 200 mg tab Take 2 tablets by mouth twice daily. therapeutic multivitamin ORAL Tab Take one(1) tablet daily. amoxicillin-clavulanic acid (AUGMENTIN) 875-125 mg per tablet Take 1 tablet by mouth twice daily for 5 days. benzonatate (TESSALON PERLES) 100 mg capsule Take 1 capsule by mouth three times daily as needed for cough. ibuprofen (MOTRIN) 600 mg tablet Take 1 tablet by mouth every 6 hours as needed for pain. Norethindrone, Contraceptive, (ORTHO MICRONOR) 0.35 mg tablet Take 1 tablet by mouth once daily. (Patient not taking: Reported on 04/10/2022) nystatin (NYSTOP) powder Apply 1 application to affected area four times daily. (Patient not taking: Reported on 03/05/2022) FAMILY HISTORY Problem Relation Age of Onset Asthma Mother other (Reflux) Mother other (angina) Mother Heart Father Seizures Father Seizures Brother Heart Sister ND Heart Sister Seizures Sister Young Diabetes Maternal Grandmother Stroke Maternal Grandmother other (hypoglycemia) Maternal Grandfather Social History Tobacco Use Smoking status: Never Smokeless tobacco: Never Substance Use Topics Alcohol use: No Drug use: No Review of Systems Constitutional: Negative for chills and fever. HENT: Positive for congestion. Negative for ear pain and sore throat. Respiratory: Positive for cough. Negative for shortness of breath. Cardiovascular: Negative for chest pain. Gastrointestinal: Negative for diarrhea and vomiting. Objective BP 122/72 Pulse 82 Temp 36.6 ?C (97.9 ?F) Resp 18 Wt (!) 154.2 kg (340 lb) LMP 02/26/2021 SpO2 96% BMI 56.58 kg/m? Physical Exam Vitals and nursing note reviewed. Constitutional: General: She is not in acute distress. Appearance: Normal appearance. She is not toxic-appearing. HENT: Right Ear: Tympanic membrane and ear canal normal. Left Ear: Tympanic membrane and ear canal normal. Nose: Congestion present. Mouth/Throat: Mouth: Mucous membranes are moist. Pharynx: No oropharyngeal exudate or posterior oropharyngeal erythema. Eyes: Conjunctiva/sclera: Conjunctivae normal. Cardiovascular: Rate and Rhythm: Normal rate and regular rhythm. Pulmonary: Effort: Pulmonary effort is normal. Breath sounds: Normal breath sounds. Neurological: Mental Status: She is alert. Assessment and Plan ASSESSMENT/PLAN: 1. URI, acute - ICD9: 465.9, ICD10: J06.9 (primary diagnosis) - Discussed viral etiology and rationale for treatment. - Symptomatic treatment with prn analgesia (more content not included)... [facility] 06-16-2022 History of Presen t illness Narrative This note was created using [employer]. Subjective Karen Barrera is a 41 year old female. HPI 41-year-old female presents for cough and congestion. Patient states she has had a cough and nasal congestion for about a week. She has sinus pressure and pain. She has history of asthma. She has been using her inhalers. No vomiting or diarrhea. No chest pain or shortness of breath. She was treated for sinobronchitis at the end of April. States symptoms improved up until about a week ago. Denies any sick contacts. PAST MEDICAL HISTORY Diagnosis Date Abnormal result of cardiovascular function study Adjustment disorder with depressed mood Chest pain Chronic factitious illness with physical symptoms Closed fracture of unspecified bone right arm Closed fracture of unspecified bone left ankle Conversion disorder Esophageal reflux Myalgia and myositis, unspecified Other forms of dyspnea Seizure disorder (HCC) 09/26/2011 SOB (shortness of breath) Unspecified asthma, with status asthmaticus PAST SURGICAL HISTORY Procedure Laterality Date CHEST X-RAY 06/16/2020 CHEST X-RAY 06/16/2020 ECHO 02/13/2022 EF60% EKG 09/30/2019 PAST SURGICAL HISTORY OF cyst removal from lower back STRESS TEST 03/10/2019 STRESS TEST 02/13/2022 ALLERGIES Dayquil Liquicaps [Ijglukxxe-Za-Ne-Acetaminophen ], Arithromycin [Azithromycin], Doxycycline, Latex, Mucinex Dm [Dextromethorphan-Guaifenesin] , Risperdal [Risperidone], Strawberries, Tamiflu [Oseltamivir Phosphate], Topiramate, Bextra [Valdecoxib], and Cephalexin MEDICATIONS albuterol HFA (VENTOLIN HFA) 90 mcg/actuation inhaler Inhale 2 Puffs as instructed every 4 hours as needed for wheezing/shortness of breath. citalopram (CELEXA) 20 mg tablet 20 mg once daily. 1 tablet daily zonisamide (ZONEGRAN) 100 mg capsule Take 100 mg by mouth once daily. 2 capsules by mouth twice daily levETIRAcetam (KEPPRA) 750 mg tablet Take 750 mg by mouth twice daily. cetirizine (ZYRTEC) 10 mg tablet Take 1 tablet by mouth once daily. montelukast (SINGULAIR) 10 mg tablet Take 1 tablet by mouth daily at bedtime. iloperidone (FANAPT) 4 mg tab Take 1 tablet by mouth daily at bedtime. topiramate (TOPAMAX) 200 mg tablet Take 2 tablets by mouth twice daily. lacosamide (VIMPAT) 200 mg tab Take 2 tablets by mouth twice daily. therapeutic multivitamin ORAL Tab Take one(1) tablet daily. amoxicillin-clavulanic acid (AUGMENTIN) 875-125 mg per tablet Take 1 tablet by mouth twice daily for 5 days. benzonatate (TESSALON PERLES) 100 mg capsule Take 1 capsule by mouth three times daily as needed for cough. ibuprofen (MOTRIN) 600 mg tablet Take 1 tablet by mouth every 6 hours as needed for pain. Norethindrone, Contraceptive, (ORTHO MICRONOR) 0.35 mg tablet Take 1 tablet by mouth once daily. (Patient not taking: Reported on 04/10/2022) nystatin (NYSTOP) powder Apply 1 application to affected area four times daily. (Patient not taking: Reported on 03/05/2022) FAMILY HISTORY Problem Relation Age of Onset Asthma Mother other (Reflux) Mother other (angina) Mother Heart Father Seizures Father Seizures Brother Heart Sister ND Heart Sister Seizures Sister Young Diabetes Maternal Grandmother Stroke Maternal Grandmother other (hypoglycemia) Maternal Grandfather Social History Tobacco Use Smoking status: Never Smokeless tobacco: Never Substance Use Topics Alcohol use: No Drug use: No Review of Systems Constitutional: Negative for chills and fever. HENT: Positive for congestion. Negative for ear pain and sore throat. Respiratory: Positive for cough. Negative for shortness of breath. Cardiovascular: Negative for chest pain. Gastrointestinal: Negative for diarrhea and vomiting. Objective BP 122/72 Pulse 82 Temp 36.6 C (97.9 F) Resp 18 Wt (!) 154.2 kg (340 lb) LMP 02/26/2021 SpO2 96% BMI 56.58 kg/m Physical Exam Vitals and nursing note reviewed. Constitutional: General: She is not in acute distress. Appearance: Normal appearance. She is not toxic-appearing. HENT: Right Ear: Tympanic membrane and ear canal normal. Left Ear: Tympanic membrane and ear canal normal. Nose: Congestion present. Mouth/Throat: Mouth: Mucous membranes are moist. Pharynx: No oropharyngeal exudate or posterior oropharyngeal erythema. Eyes: Conjunctiva/sclera: Conjunctivae normal. Cardiovascular: Rate and Rhythm: Normal rate and regular rhythm. Pulmonary: Effort: Pulmonary effort is normal. Breath sounds: Normal breath sounds. Neurological: Mental Status: She is alert. Assessment and Plan ASSESSMENT/PLAN: 1. URI, acute - ICD9: 465.9, ICD10: J06.9 (primary diagnosis) - Discussed viral etiology and rationale for treatment. - Symptomatic treatment with prn analgesia - Supportive care with fluids and rest -Declines COVID/flu swab 2. Acute recurrent sinusitis, unspecified location - ICD9: 461.9, ICD10: J01.91 - Will begin treatment with Augmentin 875 mg PO BID for 5 days. Has tolerated Augmentin in the past -Rx for Tessalon Perles. Rx for Motrin per patient request. - Supportive care with plenty of fluids, rest, and analgesia prn. -No fevers, lungs are clear. Low suspicion for pneumonia. Diagnosis and treatment plan were discussed and questions were answered to the patient's satisfaction. Pt acknowledged understanding of concepts and follow up plan. Specific signs and symptoms that would indicate the need for higher level of care were discussed in detail warranting prompt ER evaluation. BRIDGETTE Weber documented in this encounter [facility] 06-04-2022 Miscellaneous Notes Formattin g of this note might be different from the original. Call placed to patient and mother notified prescriptions were sent to [facility] as requested. Gabriella Cano RN The following approved medication requests have been transmitted electronically. Requested Prescriptions Pending Prescriptions Disp Refills benzonatate (TESSALON PERLES) 100 mg capsule 30 capsule 0 Sig: Take 1 capsule by mouth three times daily as needed for cough. albuterol HFA (VENTOLIN HFA) 90 mcg/actuation inhaler 1 Each 0 Sig: Inhale 2 Puffs as instructed every 4 hours as needed for wheezing/shortness of breath. Silas Lewis APRN.DIXIE Patient has been identified by name and date of : Yes, Provider Gabriella Cano RN Date 06/04/2022 Time 12:30 pm Patient phones for refill(s): Requested Prescriptions Pending Prescriptions Disp Refills benzonatate (TESSALON PERLES) 100 mg capsule 30 capsule 1 Sig: Take 1 capsule by mouth three times daily as needed for cough. albuterol HFA (VENTOLIN HFA) 90 mcg/actuation inhaler 1 Each 0 Sig: Inhale 2 Puffs as instructed every 4 hours as needed for wheezing/shortness of breath. Verified with [facility] no refills on tessalon. Date of last office visit with pcp: 05/16/2022 Future appt: none Last 2 Encounter Wt Readings: Date: Wt: 05/16/2022 151.5 kg (334 lb) 05/07/2022 152 kg (335 lb) Previous labs/tests for medication: Blood Pressure: BUN (mg/dL) Date Value 03/05/2022 8 06/23/2018 14 Sodium (mmol/L) Date Value 03/05/2022 142 06/23/2018 138 Last 1 Encounter BP Readings: Date: BP: 05/16/2022 120/62 Liver Function: ALT (U/L) Date Value 03/05/2022 16 06/23/2018 10 AST (U/L) Date Value 03/05/2022 20 06/23/2018 17 Please advise. Thank you. Gabriella Cano RN documented in this encounter [facility] 05-29-2022 Miscellaneous Notes Formattin g of this note might be different from the original. PA should not be needed since formulary option available. Spoke to carito who advised yes covered when ran for pro-air. Patient grandmother was notified Olimpia Pierson Ma Prior Authorization Documentation Prior authorization requested for the following medication: Medication: albuterol inhaler Provider: [employer] Company Name: [employer] Phone number: Patient ID number: [id number] Pharmacy Name: [facility] documented in this encounter [facility] 05-16-2022 Note HNO ID: [id number] Author: Silas Lewis APRN.GENERAL ASSISTANT Service: ? Author Type: Nurse Practitioner Type: Progress Notes Filed: 05/16/2022 1:01 PM Note Text: This is a 41 year old female who presents today with: Patient presents with: Acute Visit: ?bronchitis HISTORY OF PRESENT ILLNESS: Karen Barrera is a 41 year old female. Patient presents with: Acute Visit: ?bronchitis Here in the office for concerns for bronchitis. Was seen for URI about 1 month ago and refers symptoms never improved. Cough is getting worse. Coughing in sleep. Refers that tessalon perles helped. Using Robitussin without much improvement. Coughing up thick brown mucus. Unsure if she has a fever. Chest xray last month WNL. SOB at rest. Mild sore throat at times. PAST MEDICAL HISTORY: PAST MEDICAL HISTORY Diagnosis Date Abnormal result of cardiovascular function study Adjustment disorder with depressed mood Chest pain Chronic factitious illness with physical symptoms Closed fracture of unspecified bone right arm Closed fracture of unspecified bone left ankle Conversion disorder Esophageal reflux Myalgia and myositis, unspecified Other forms of dyspnea Seizure disorder (HCC) 09/26/2011 SOB (shortness of breath) Unspecified asthma, with status asthmaticus PAST SURGICAL HISTORY Procedure Laterality Date CHEST X-RAY 06/16/2020 CHEST X-RAY 06/16/2020 ECHO 02/13/2022 EF60% EKG 09/30/2019 PAST SURGICAL HISTORY OF cyst removal from lower back STRESS TEST 03/10/2019 STRESS TEST 02/13/2022 ALLERGIES Dayquil Liquicaps [Pqgtdmdeq-Sx-Wr-Acetaminophen ], Arithromycin [Azithromycin], Doxycycline, Latex, Mucinex Dm [Dextromethorphan-Guaifenesin] , Risperdal [Risperidone], Strawberries, Tamiflu [Oseltamivir Phosphate], Topiramate, Bextra [Valdecoxib], and Cephalexin MEDICATIONS Current Outpatient Medications Medication Sig citalopram (CELEXA) 20 mg tablet 20 mg once daily. 1 tablet daily zonisamide (ZONEGRAN) 100 mg capsule Take 100 mg by mouth once daily. 2 capsules by mouth twice daily levETIRAcetam (KEPPRA) 750 mg tablet Take 750 mg by mouth twice daily. cetirizine (ZYRTEC) 10 mg tablet Take 1 tablet by mouth once daily. montelukast (SINGULAIR) 10 mg tablet Take 1 tablet by mouth daily at bedtime. ibuprofen (MOTRIN) 600 mg tablet Take 1 tablet by mouth every 6 hours as needed for pain. benzonatate (TESSALON PERLES) 100 mg capsule Take 1 capsule by mouth three times daily as needed for cough. albuterol HFA (PROAIR HFA) 90 mcg/actuation inhaler Inhale 2 Puffs as instructed every 4 hours as needed. Norethindrone, Contraceptive, (ORTHO MICRONOR) 0.35 mg tablet Take 1 tablet by mouth once daily. (Patient not taking: Reported on 04/10/2022) nystatin (NYSTOP) powder Apply 1 application to affected area four times daily. (Patient not taking: Reported on 03/05/2022) iloperidone (FANAPT) 4 mg tab Take 1 tablet by mouth daily at bedtime. topiramate (TOPAMAX) 200 mg tablet Take 2 tablets by mouth twice daily. lacosamide (VIMPAT) 200 mg tab Take 2 tablets by mouth twice daily. therapeutic multivitamin ORAL Tab Take one(1) tablet daily. No current facility-administered medications for this visit. FAMILY HISTORY Problem Relation Age of Onset Asthma Mother other (Reflux) Mother other (angina) Mother Heart Father Seizures Father Seizures Brother Heart Sister ND Heart Sister Seizures Sister Young Diabetes Maternal Grandmother Stroke Maternal Grandmother other (hypoglycemia) Maternal Grandfather Social History Tobacco Use Smoking status: Never Smokeless tobacco: Never Substance Use Topics Alcohol use: No Drug use: No REVIEW OF SYSTEMS GENERAL: No weight loss, malaise or fevers/chills HEENT: + Sore Throat NECK: Negative for lumps, goiter, pain and significant neck swelling RESPIRATORY: + Cough/SOB CARDIOVASCULAR: Negative for chest pain, leg swelling, orthopnea, or palpitations GI: No nausea, vomiting, or diarrhea/constipation. No hematochezia/melena. No heartburn or reflux symptoms. : No history of dysuria, frequency or incontinence MUSCULOSKELETAL: Negative for joint pain or swelling. SKIN: Negative for lesions, rash, and itching ENDOCRINE: Negative for cold or heat intolerance, polyuria, polydipsia and goiter NEURO: No history of headaches, syncope, paralysis, seizures or tremors MOOD: Negative for depression, anxiety, or suicidal ideation. EXAM: BP 120/62 Pulse 90 Temp 36.4 ?C (97.5 ?F) Resp 20 Wt (!) 151.5 kg (334 lb) LMP 02/26/2021 SpO2 98% BMI 55.58 kg/m? PHYSICAL EXAM: General Appearance: Well appearing, alert, in no acute distress, well-hydrated, well nourished. Skin: Skin color, texture, turgor normal, no suspicious rashes or lesions. Head: Normocephalic, no masses, lesions, tenderness or abnormalities. Eyes: Anicteric sclera. Extraocular movements are intact. Ears: External ears normal, canals clear. TM's pea (more content not included)... [facility] 05-16-2022 Instructions Silas Lewis APRN.GENERAL ASSISTANT - 05/16/2022 12:01 PM EST Start Augmentin, take with food. May use tessalon perles as needed for cough. Use albuterol inhaler as needed for shortness of breath or wheezing. Stay well hydrated. If post nasal drip becomes bothersome you can try flonase nasal spray. Follow up as needed. Dry skin recommend Eucerin or Aquaphor ointment. documented in this encounter [facility] 05-16-2022 History of Presen t illness Narrative This is a 41 year old female who presents today with: Patient presents with: Acute Visit: ?bronchitis HISTORY OF PRESENT ILLNESS: Karen Barrera is a 41 year old female. Patient presents with: Acute Visit: ?bronchitis Here in the office for concerns for bronchitis. Was seen for URI about 1 month ago and refers symptoms never improved. Cough is getting worse. Coughing in sleep. Refers that tessalon perles helped. Using Robitussin without much improvement. Coughing up thick brown mucus. Unsure if she has a fever. Chest xray last month WNL. SOB at rest. Mild sore throat at times. PAST MEDICAL HISTORY: PAST MEDICAL HISTORY Diagnosis Date Abnormal result of cardiovascular function study Adjustment disorder with depressed mood Chest pain Chronic factitious illness with physical symptoms Closed fracture of unspecified bone right arm Closed fracture of unspecified bone left ankle Conversion disorder Esophageal reflux Myalgia and myositis, unspecified Other forms of dyspnea Seizure disorder (HCC) 09/26/2011 SOB (shortness of breath) Unspecified asthma, with status asthmaticus PAST SURGICAL HISTORY Procedure Laterality Date CHEST X-RAY 06/16/2020 CHEST X-RAY 06/16/2020 ECHO 02/13/2022 EF60% EKG 09/30/2019 PAST SURGICAL HISTORY OF cyst removal from lower back STRESS TEST 03/10/2019 STRESS TEST 02/13/2022 ALLERGIES Dayquil Liquicaps [Stkwzajrr-Cy-Xr-Acetaminophen ], Arithromycin [Azithromycin], Doxycycline, Latex, Mucinex Dm [Dextromethorphan-Guaifenesin] , Risperdal [Risperidone], Strawberries, Tamiflu [Oseltamivir Phosphate], Topiramate, Bextra [Valdecoxib], and Cephalexin MEDICATIONS Current Outpatient Medications Medication Sig citalopram (CELEXA) 20 mg tablet 20 mg once daily. 1 tablet daily zonisamide (ZONEGRAN) 100 mg capsule Take 100 mg by mouth once daily. 2 capsules by mouth twice daily levETIRAcetam (KEPPRA) 750 mg tablet Take 750 mg by mouth twice daily. cetirizine (ZYRTEC) 10 mg tablet Take 1 tablet by mouth once daily. montelukast (SINGULAIR) 10 mg tablet Take 1 tablet by mouth daily at bedtime. ibuprofen (MOTRIN) 600 mg tablet Take 1 tablet by mouth every 6 hours as needed for pain. benzonatate (TESSALON PERLES) 100 mg capsule Take 1 capsule by mouth three times daily as needed for cough. albuterol HFA (PROAIR HFA) 90 mcg/actuation inhaler Inhale 2 Puffs as instructed every 4 hours as needed. Norethindrone, Contraceptive, (ORTHO MICRONOR) 0.35 mg tablet Take 1 tablet by mouth once daily. (Patient not taking: Reported on 04/10/2022) nystatin (NYSTOP) powder Apply 1 application to affected area four times daily. (Patient not taking: Reported on 03/05/2022) iloperidone (FANAPT) 4 mg tab Take 1 tablet by mouth daily at bedtime. topiramate (TOPAMAX) 200 mg tablet Take 2 tablets by mouth twice daily. lacosamide (VIMPAT) 200 mg tab Take 2 tablets by mouth twice daily. therapeutic multivitamin ORAL Tab Take one(1) tablet daily. No current facility-administered medications for this visit. FAMILY HISTORY Problem Relation Age of Onset Asthma Mother other (Reflux) Mother other (angina) Mother Heart Father Seizures Father Seizures Brother Heart Sister ND Heart Sister Seizures Sister Young Diabetes Maternal Grandmother Stroke Maternal Grandmother other (hypoglycemia) Maternal Grandfather Social History Tobacco Use Smoking status: Never Smokeless tobacco: Never Substance Use Topics Alcohol use: No Drug use: No REVIEW OF SYSTEMS GENERAL: No weight loss, malaise or fevers/chills HEENT: + Sore Throat NECK: Negative for lumps, goiter, pain and significant neck swelling RESPIRATORY: + Cough/SOB CARDIOVASCULAR: Negative for chest pain, leg swelling, orthopnea, or palpitations GI: No nausea, vomiting, or diarrhea/constipation. No hematochezia/melena. No heartburn or reflux symptoms. : No history of dysuria, frequency or incontinence MUSCULOSKELETAL: Negative for joint pain or swelling. SKIN: Negative for lesions, rash, and itching ENDOCRINE: Negative for cold or heat intolerance, polyuria, polydipsia and goiter NEURO: No history of headaches, syncope, paralysis, seizures or tremors MOOD: Negative for depression, anxiety, or suicidal ideation. EXAM: BP 120/62 Pulse 90 Temp 36.4 C (97.5 F) Resp 20 Wt (!) 151.5 kg (334 lb) LMP 02/26/2021 SpO2 98% BMI 55.58 kg/m PHYSICAL EXAM: General Appearance: Well appearing, alert, in no acute distress, well-hydrated, well nourished. Skin: Skin color, texture, turgor normal, no suspicious rashes or lesions. Head: Normocephalic, no masses, lesions, tenderness or abnormalities. Eyes: Anicteric sclera. Extraocular movements are intact. Ears: External ears normal, canals clear. TM's pearly [place]. Nose/Sinuses: +Frontal and Maxillary sinus tenderness with palpation. Oropharynx: Lips, mucosa, and tongue normal, teeth and gums normal, oropharynx normal. Neck: Supple, no adenopathy; thyroid symmetric, normal size, no bruits. Lungs: Lungs clear to auscultation. No wheezing, rhonchi, rales. Heart: RRR without murmur, gallop, or rubs. No ectopy. Extremities: No deformities, edema, skin discoloration, clubbing or cyanosis. Good capillary refill. Peripheral Pulses: Normal, Capillary refill <2secs, strong peripheral pulses, Pulses palpable. Neurologic: Gait normal. Sensation grossly intact. ASSESSMENT/PLAN: 1. Sinobronchitis - ICD9: 473.9, 490, ICD10: J32.9, J40 (primary diagnosis) - Will begin treatment with Augmentin 875 mg PO BID for 10 days - Supportive care with plenty of fluids, rest, and analgesia prn. - AMOXICILLIN 875 MG-POTASSIUM CLAVULANATE 125 MG TABLET 2. Acute cough - ICD9: 786.2, ICD10: R05.1 - Refill provided - BENZONATATE 100 MG CAPSULE 3. SOB (shortness of breath) - ICD9: 786.05, ICD10: R06.02 - May use albuterol inhaler as needed. - ALBUTEROL SULFATE HFA 90 MCG/ACTUATION AEROSOL INHALER Follow-up as needed or sooner if symptoms get worse or do not improve. Discussed treatment plan and patient voices understanding. Patient's questions answered appropriately. Medications and potential side effects were discussed and patient voices understanding. Silas Lewis APRN.DIXIE This note was partially generated using Pi[employer] voice recognition system. Note was reviewed for accuracy. There may be minor misspellings or grammar miscues with [employer] voice recognition. documented in this encounter [facility] 05-14-2022 Miscellaneous Notes Formattin g of this note might be different from the original. Returned call to patient's guardian. She stated she does not live with patient and I will have to call patient's mother. Contacted patient's mother. Provided message. Patient's mother was very confused as she insists she was told there are kidney stones present. Reiterated that CT results were normal. She said patient is still having constipation issues. Discussed conservative measures to treat constipation. She said patient is still having difficulty urinating. Per Wilmar Polanco's note, patient may schedule at [facility] today to have a catheter placed if having troubles urinating. Patient's mother said she would rather call [facility] to schedule an appointment. No further questions or concerns at this time. Maty Barba, RN Please let the patient and guardian know that the ct scan is normal. She did mention she had constipation, is this still a problem? If so she will need to manage the constipation. If unable to void she can have a hung catheter placed today at [facility] She would need to be here at 1 pm. Pt and guardian called regarding pt stating she is going to have the CT tomorrow. She stated that she is having so much trouble urinating and is worried. Was not sure who she should talk to but will get the CT done. Guardian was very confused about what happens after CT. documented in this encounter [facility] 05-13-2022 Note HNO ID: [id number] Author: RT Canelo(Karie) Service: ? Author Type: Life Sciences Instructor Type: Progress Notes Filed: 05/13/2022 4:01 PM Note Text: Radiology Service Progress Note PATIENT NAME: Karen Barrera DATE OF SERVICE: May 13, 2022 TIME: 4:01 PM PATIENT IDENTITY VERIFICATION COMPLETED USING TWO (2) IDENTIFIERS: Name and Date of confirmed by patient verbally. FALL SCREENING: Has the patient had 2 falls in the last year or 1 fall with injury or currently using an Ambulatory Assistive Device (Walker, Cane, Wheelchair, Crutches, etc.)? No PATIENT GENDER DATA: Female. status: : No status: NO. PATIENT RELEVANT IMPLANT DATA REVIEWED: Yes RADIOLOGY DEPARTMENT: CT; Exam(s) Completed: Abdomen/Pelvis PERIPHERAL IV DATA: Not applicable SIGNED BY: RT Kevin(R) May 13, 2022 4:01 PM [facility] 05-13-2022 History of Presen t illness Narrative Radiology Service Progress Note PATIENT NAME: Karen Barrera DATE OF SERVICE: May 13, 2022 TIME: 4:01 PM PATIENT IDENTITY VERIFICATION COMPLETED USING TWO (2) IDENTIFIERS: Name and Date of confirmed by patient verbally. FALL SCREENING: Has the patient had 2 falls in the last year or 1 fall with injury or currently using an Ambulatory Assistive Device (Walker, Cane, Wheelchair, Crutches, etc.)? No PATIENT GENDER DATA: Female. status: : No status: NO. PATIENT RELEVANT IMPLANT DATA REVIEWED: Yes RADIOLOGY DEPARTMENT: CT; Exam(s) Completed: Abdomen/Pelvis PERIPHERAL IV DATA: Not applicable SIGNED BY: RT Kevin(R) May 13, 2022 4:01 PM documented in this encounter [facility] 05-07-2022 Note HNO ID: [id number] Author: Wilmar Polanco APRN.GENERAL ASSISTANT Service: ? Author Type: Nurse Practitioner Type: Progress Notes Filed: 05/07/2022 3:54 PM Note Text: Karen Barrera is a 41 year old female who presents today for evaluation of Patient presents with: Established Patient: Decreased urinary flow CHIEF COMPLAINT AND HISTORY OF PRESENT ILLNESS CC: hard to go 41 year old female with a seizure disorder presents today for difficulty urinating, she said it's hard to go, she voids about 3 times per day, +hesitancy, some mild constipation. Onset 2 months. Denies recent change in her diet or medicines PVR 0 cc Fluid intake: water, pop, orange juice HPI: 1-Duration: 2 months 2-Location:bladder 3-Severity:severe 4-Quality:n/a 5-Context: with urination 6-Timing: constant 7-Modifying factors:none 8-Associated signs AND symptoms: none 03/07/2022 Renal us IMPRESSION: Limited visualization due to patient's body habitus. No evidence of hydronephrosis. Past Urological History: Stones:yes: no prior surgery Surgery:no Tumors:no Infections:no VITALS: Height 165.1 cm (5' 5 ), weight (!) 152 kg (335 lb), last menstrual period 02/26/2021. ALLERGIES: Dayquil Liquicaps [Zdbhsevdp-Cg-Rl-Acetaminophen ], Arithromycin [Azithromycin], Doxycycline, Latex, Mucinex Dm [Dextromethorphan-Guaifenesin] , Risperdal [Risperidone], Strawberries, Tamiflu [Oseltamivir Phosphate], Topiramate, Bextra [Valdecoxib], and Cephalexin MEDICATIONS: Current Outpatient Medications Medication Sig Dispense Refill citalopram (CELEXA) 20 mg tablet 20 mg once daily. 1 tablet daily zonisamide (ZONEGRAN) 100 mg capsule Take 100 mg by mouth once daily. 2 capsules by mouth twice daily levETIRAcetam (KEPPRA) 750 mg tablet Take 750 mg by mouth twice daily. cetirizine (ZYRTEC) 10 mg tablet Take 1 tablet by mouth once daily. 90 tablet 3 montelukast (SINGULAIR) 10 mg tablet Take 1 tablet by mouth daily at bedtime. 90 tablet 3 ibuprofen (MOTRIN) 600 mg tablet Take 1 tablet by mouth every 6 hours as needed for pain. 30 tablet 5 benzonatate (TESSALON PERLES) 100 mg capsule Take 1 capsule by mouth three times daily as needed for cough. 30 capsule 1 albuterol HFA (PROAIR HFA) 90 mcg/actuation inhaler Inhale 2 Puffs as instructed every 4 hours as needed. 18 g 2 topiramate (TOPAMAX) 200 mg tablet Take 2 tablets by mouth twice daily. 0 lacosamide (VIMPAT) 200 mg tab Take 2 tablets by mouth twice daily. 0 therapeutic multivitamin ORAL Tab Take one(1) tablet daily. 0 Norethindrone, Contraceptive, (ORTHO MICRONOR) 0.35 mg tablet Take 1 tablet by mouth once daily. (Patient not taking: Reported on 04/10/2022) 28 tablet 11 nystatin (NYSTOP) powder Apply 1 application to affected area four times daily. (Patient not taking: Reported on 03/05/2022) 60 g 3 oxybutynin (DITROPAN) 5 mg tablet Take 1 tablet by mouth three times daily. (Patient not taking: Reported on 05/07/2022) 84 tablet 5 iloperidone (FANAPT) 4 mg tab Take 1 tablet by mouth daily at bedtime. No current facility-administered medications for this visit. SOCIAL HISTORY: Social History Tobacco Use Smoking status: Never Smokeless tobacco: Never Substance Use Topics Alcohol use: No Drug use: No PAST MEDICAL HISTORY: PAST MEDICAL HISTORY Diagnosis Date Abnormal result of cardiovascular function study Adjustment disorder with depressed mood Chest pain Chronic factitious illness with physical symptoms Closed fracture of unspecified bone right arm Closed fracture of unspecified bone left ankle Conversion disorder Esophageal reflux Myalgia and myositis, unspecified Other forms of dyspnea Seizure disorder (HCC) 09/26/2011 SOB (shortness of breath) Unspecified asthma, with status asthmaticus PAST SURGICAL HISTORY: PAST SURGICAL HISTORY Procedure Laterality Date CHEST X-RAY 06/16/2020 CHEST X-RAY 06/16/2020 ECHO 02/13/2022 EF60% EKG 09/30/2019 PAST SURGICAL HISTORY OF cyst removal from lower back STRESS TEST 03/10/2019 STRESS TEST 02/13/2022 FAMILY HISTORY: FAMILY HISTORY Problem Relation Age of Onset Asthma Mother other (Reflux) Mother other (angina) Mother Heart Father Seizures Father Seizures Brother Heart Sister ND Heart Sister Seizures Sister Young Diabetes Maternal Grandmother Stroke Maternal Grandmother other (hypoglycemia) Maternal Grandfather All histories reviewed on this date 05/07/2022: Yes REVIEW OF SYSTEMS: CONSTITUTIONAL: Patient reports no recent fever or weight loss CARDIOVASCULAR: Negative for chest pain. RESPIRATORY: Negative for cough, hemoptysis, wheezing, COPD, dyspnea or shortness of breath GI: No nausea, vomiting, or diarrhea and Constipation MUSCULOSKELETAL: denies back pain or muscular weakness SKIN: Negative for lesions, rash, and itching PSYCH: Negative for sleep disturbance, mood disorder and recent psychosocial stressors. and +seizure disorder (more content not included)... [facility] 05-07-2022 Instructions Wilmar Polanco APRN.[facility] 05/07/2022 3:45 PM EST Images from the original note were not included. Cystoscopy What is a cystoscopy? A cystoscopy is a procedure done by a urologist, a doctor specializing in the urinary system. During a cystectomy, the urologist uses a scope to look at the inside of the bladder, where urine is stored, and in the urethra, the channel that urine flows through out of the bladder. A cystoscopy may also be used to remove something that shouldn t be there, such as a bladder stone, or to take a biopsy (a sample of tissue) from the bladder lining to analyze it in the lab for further information. The procedure can also help with placing a catheter, which is a thin drainage tube for urine. When is a cystoscopy needed? The cystoscopy procedure is ordered by the urologist when more information is needed about what is happening inside the lower urinary tract. Most often it is used to check for any problems in the bladder and its lining. The procedure is also an important tool to identify what may be causing abnormal problems, such as: Frequent urinary tract infections (UTIs) Hematuria, or blood in the urine Urinary frequency, or urinating more than 8 times a day Urinary urgency, or the sudden, strong urge to urinate Urinary retention, or when the bladder does not empty completely Urinary incontinence, or urine leakage Pain or burning before, during, or after urination Trouble starting the flow of urine, completing urination, or both Abnormal cells found in a urine sample How does a patient prepare for a cystoscopy? Before the procedure is recommended, the urologist will ask about the patient s medical history, current prescription and hybb-szd-qhohpmp medications, and allergies to medications, including anesthetics. The urologist will explain what the patient can expect after the procedure. The patient may need to give a urine sample to test for a urinary tract infection (UTI). If the patient has a UTI, the urologist may treat the infection with antibiotics before performing a cystoscopy. The urologist or nurse may ask the patient to drink plenty of liquids, and to urinate immediately before the procedure. What happens during a cystoscopy procedure? The cystoscopy procedure usually takes about 30 minutes and is done on an outpatient basis. The urologist will recommend that the patient empty his or her bladder before the procedure begins. The yvbb-rh-dcnm process may be similar to this: The patient will be lying on an exam table. The urologist may place some gel or a local anesthetic in the patient s urethra to aid in reducing any discomfort while the procedure is taking place. The urologist will gently insert the cystoscope through the urethra into the bladder. The patient may feel discomfort or a pressure sensation. The cystoscope is a long, thin tube with a lens on one end that the urologist looks through or, on a camera-equipped scope, visualizes on a monitor. The other end of the cystoscope that is inserted into the urethra has a tiny lens with a light that allows the urologist to look inside the urethra and bladder. There are two types of cystoscopes. One has a flexible insertion tube while the other is stiff. Once the cystoscope is inserted, the urologist will need to instill some sterile water or a normal saline solution from the cystoscope into the bladder. The water /saline fills and stretches the bladder so the urologist can get a better view of the bladder wall. As the liquid enters the bladder, the patient may again feel some discomfort as well as the urge to urinate. If necessary, the urologist can remove some of the liquid from the bladder during the procedure. Once the procedure is over, the urologist may drain the patient s bladder, or ask the patient to use the bathroom to urinate before he or she leaves the office. During the brief procedure, the urologist examines the lining of the urethra as the cystoscope passes through it and then into the bladder. Once the cystoscope reaches the bladder, the urologist examines the lining of the bladder. During the procedure, the urologist can remove a bladder stone or take a biopsy if needed. Sometimes a monitor is set up in the doctor s office so that both the urologist and patient can watch the procedure as it is taking place. What does the urologist look for during a cystoscopy? The urologist will be looking for anything that appears unusual. The bladder wall should be smooth, and there should not be any blockages in the lower urinary tract. During a cystoscopy, the urologist is able to see: Bladder stones: A small stone-like mass that forms from minerals in the urine. It usually forms when urine does not completely leave the bladder and the minerals in the urine crystallize. If not treated, they can cause pain and lead to blood in the urine. A stone can also cause a blockage so that urine cannot leave the bladder. Abnormal tissue, polyps, tumors, or cancer in the urethra or bladder Stricture, or a narrowing of the urethra: This could be a symptom of an enlarged prostate in men or of scar tissue in the urethra. During the cystoscopy, can the urologist treat some problems? During a cystoscopy, the urologist may be able to treat minor problems such as bleeding in the bladder or blockage in the urethra. The urologist may also use a cystoscopy to: Remove a small stone in the bladder or urethra Remove or treat abnormal tissue, polyps, and certain tumors Inject medication into the urethra wall or the bladder to treat urinary leakage What happens after the cystoscopy procedure? Typically, a cystoscopy is done in the urologist s office and afterwards most patients go home the same day as the procedure. Sometimes after a cystoscopy procedure, the patient may: Feel a burning or soreness around the urethra Feel slight burning while urinating Notice small flecks of blood in the urine Feel mild discomfort in the bladder area or kidney area when urinating Need to urinate frequently or urgently These problems should not last more than a day after the procedure. If pain persists, bloody urine lasts longer than 48 hours, or the patient develops a fever, the patient should call the doctor. Occasionally, the patient may have an increase in urinary frequency for the first 24 hours after the procedure. There may be also a change in the color of the urine (it may be darker, or look pink or red due to mild bleeding). This is common, especially if a biopsy was taken. After the procedure, the urologist may recommend that the patient: Drink 16 ounces of water each hour for 2 hours after the procedure Take a warm bath to help ease the burning feeling Place a warm, damp washcloth over the urethral opening to relieve discomfort Take an tnof-msu-okvqkln pain medicine If necessary, the urologist may prescribe an antibiotic to take for a couple of days after the procedure to prevent an infection. If you have severe pain, chills, or fever (these could be signs of an infection), it is important to call the urologist s office and explain the symptoms. What are the risks of cystoscopy? Every patient is different, and the urologist will take into consideration each patient s specific medical history when explaining possible complications from the procedure. Although minimal, the risks of cystoscopy may include: Urinary tract infections (UTI) Bleeding Abdominal pain Burning or discomfort during urination Possible injury to the urethra or bladder Narrowing of the urethra because of scar tissue formation Trouble urinating due to swelling of surrounding tissues If any of the following symptoms occur after a cystoscopy, you should call the urologist right away: Inability to urinate and the discomfort of a full bladder Burning or discomfort during urination that lasts more than 2 days Bright red urine or blood clots in the urine Fever Severe discomfort References: NIH: National Williams of Diabetes and Digestive and Kidney Diseases. Cystoscopy and Ureteroscopy Accessed 10/16/2016. Sarah Sharma, Laila D, Vikram H, Carrington JS. The History of Cystoscopy in Urology, Internet Journal of Urology. 14,1 (2015) [employer] Accessed 10/16/2016. [facility] [facility]. What is Cystoscopy? Accessed 10/16/2016. Copyright 1653-9360 [facility]. All rights reserved. documented in this encounter [facility] 05-07-2022 History of Presen t illness Narrative Karen Barrera is a 41 year old female who presents today for evaluation of Patient presents with: Established Patient: Decreased urinary flow CHIEF COMPLAINT & HISTORY OF PRESENT ILLNESS CC: hard to go 41 year old female with a seizure disorder presents today for difficulty urinating, she said it's hard to go, she voids about 3 times per day, +hesitancy, some mild constipation. Onset 2 months. Denies recent change in her diet or medicines PVR 0 cc Fluid intake: water, pop, orange juice HPI: 1-Duration: 2 months 2-Location:bladder 3-Severity:severe 4-Quality:n/a 5-Context: with urination 6-Timing: constant 7-Modifying factors:none 8-Associated signs & symptoms: none 03/07/2022 Renal us IMPRESSION: Limited visualization due to patient's body habitus. No evidence of hydronephrosis. Past Urological History: Stones:yes: no prior surgery Surgery:no Tumors:no Infections:no VITALS: Height 165.1 cm (5' 5 ), weight (!) 152 kg (335 lb), last menstrual period 02/26/2021. ALLERGIES: Dayquil Liquicaps [Gjjbqupuf-Is-Ev-Acetaminophen ], Arithromycin [Azithromycin], Doxycycline, Latex, Mucinex Dm [Dextromethorphan-Guaifenesin] , Risperdal [Risperidone], Strawberries, Tamiflu [Oseltamivir Phosphate], Topiramate, Bextra [Valdecoxib], and Cephalexin MEDICATIONS: Current Outpatient Medications Medication Sig Dispense Refill citalopram (CELEXA) 20 mg tablet 20 mg once daily. 1 tablet daily zonisamide (ZONEGRAN) 100 mg capsule Take 100 mg by mouth once daily. 2 capsules by mouth twice daily levETIRAcetam (KEPPRA) 750 mg tablet Take 750 mg by mouth twice daily. cetirizine (ZYRTEC) 10 mg tablet Take 1 tablet by mouth once daily. 90 tablet 3 montelukast (SINGULAIR) 10 mg tablet Take 1 tablet by mouth daily at bedtime. 90 tablet 3 ibuprofen (MOTRIN) 600 mg tablet Take 1 tablet by mouth every 6 hours as needed for pain. 30 tablet 5 benzonatate (TESSALON PERLES) 100 mg capsule Take 1 capsule by mouth three times daily as needed for cough. 30 capsule 1 albuterol HFA (PROAIR HFA) 90 mcg/actuation inhaler Inhale 2 Puffs as instructed every 4 hours as needed. 18 g 2 topiramate (TOPAMAX) 200 mg tablet Take 2 tablets by mouth twice daily. 0 lacosamide (VIMPAT) 200 mg tab Take 2 tablets by mouth twice daily. 0 therapeutic multivitamin ORAL Tab Take one(1) tablet daily. 0 Norethindrone, Contraceptive, (ORTHO MICRONOR) 0.35 mg tablet Take 1 tablet by mouth once daily. (Patient not taking: Reported on 04/10/2022) 28 tablet 11 nystatin (NYSTOP) powder Apply 1 application to affected area four times daily. (Patient not taking: Reported on 03/05/2022) 60 g 3 oxybutynin (DITROPAN) 5 mg tablet Take 1 tablet by mouth three times daily. (Patient not taking: Reported on 05/07/2022) 84 tablet 5 iloperidone (FANAPT) 4 mg tab Take 1 tablet by mouth daily at bedtime. No current facility-administered medications for this visit. SOCIAL HISTORY: Social History Tobacco Use Smoking status: Never Smokeless tobacco: Never Substance Use Topics Alcohol use: No Drug use: No PAST MEDICAL HISTORY: PAST MEDICAL HISTORY Diagnosis Date Abnormal result of cardiovascular function study Adjustment disorder with depressed mood Chest pain Chronic factitious illness with physical symptoms Closed fracture of unspecified bone right arm Closed fracture of unspecified bone left ankle Conversion disorder Esophageal reflux Myalgia and myositis, unspecified Other forms of dyspnea Seizure disorder (HCC) 09/26/2011 SOB (shortness of breath) Unspecified asthma, with status asthmaticus PAST SURGICAL HISTORY: PAST SURGICAL HISTORY Procedure Laterality Date CHEST X-RAY 06/16/2020 CHEST X-RAY 06/16/2020 ECHO 02/13/2022 EF60% EKG 09/30/2019 PAST SURGICAL HISTORY OF cyst removal from lower back STRESS TEST 03/10/2019 STRESS TEST 02/13/2022 FAMILY HISTORY: FAMILY HISTORY Problem Relation Age of Onset Asthma Mother other (Reflux) Mother other (angina) Mother Heart Father Seizures Father Seizures Brother Heart Sister ND Heart Sister Seizures Sister Young Diabetes Maternal Grandmother Stroke Maternal Grandmother other (hypoglycemia) Maternal Grandfather All histories reviewed on this date 05/07/2022: Yes REVIEW OF SYSTEMS: CONSTITUTIONAL: Patient reports no recent fever or weight loss CARDIOVASCULAR: Negative for chest pain. RESPIRATORY: Negative for cough, hemoptysis, wheezing, COPD, dyspnea or shortness of breath GI: No nausea, vomiting, or diarrhea and Constipation MUSCULOSKELETAL: denies back pain or muscular weakness SKIN: Negative for lesions, rash, and itching PSYCH: Negative for sleep disturbance, mood disorder and recent psychosocial stressors. and +seizure disorder HEMATOLOGY/LYMPHOLOGY Negative for prolonged bleeding, bruising easily or swollen nodes ENDOCRINE: Negative for cold or heat intolerance, polyuria, polydipsia and goiter All other systems reviewed and are negative other than HPI. PHYSICAL EXAM: constitutional: appears healthy in no acute distress, obese respiratory: normal respiratory motion gi: lower abdominal pain gu: bladder: +discomfort mild bilateral cvat Extremities: negative Neuro: Gait normal. Sensation grossly intact. RADIOLOGY REPORTS REVIEWED: Yes LAB RESULTS REVIEWED: Yes IMAGING STUDIES INDEPENDENTLY REVIEWED: Yes OLD RECORDS REVIEWED: Yes: Extensive: No ASSESSMENT/PLAN: ASSESSMENT/PLAN: 1. Bilateral flank pain - ICD9: 789.09, ICD10: R10.9 (primary diagnosis) - CT FLANK WO IVCON -rule out calculi 2. Decreased urine stream - ICD9: 788.62, ICD10: R39.198 - BLADDER SCAN 0 cc -stop Ditropan - CT FLANK WO IVCON - CYSTO.PANENDO 3. Calcium oxalate crystals in urine - ICD9: 791.9, ICD10: R82.998 - CT FLANK WO IVCON -rule out calculi - CYSTO.PANENDO Patient is instructed to schedule a follow up for cystoscopy Wilmar Polanco APRN.GENERAL ASSISTANT documented in this encounter [facility] 05-07-2022 Nurse Note Bladder scan obtained 0 ml of urine documented in this encounter [facility] 04-25-2022 Miscellaneous Notes Formattin g of this note might be different from the original. Noted Daniel Chun MD Triage protocol recommended: ER now due to multiple concerning symptoms. Pt and mother agreeable. Reason for Disposition Patient sounds very sick or weak to the triager Answer Assessment - Initial Assessment Questions Pt's mother calling with pt talking in background. Mother initially called with concerns for pt's vaginal bleeding over the last 3 days. Hasn't had a period in several months. States pt has been having blood on toilet paper when pt wipes, along with nickel sized blood clots. Reports severe painful urination, urinating small frequent amounts about every 5 minutes. Reports she has kidney stones in both kidneys and will be seeing Urology on 05/07 in [place]. Reports nausea and back ache. After more questioning, mother states pt had a viral respiratory illness in late March and was evaluated by Silas Lewis. Chest xray, covid and flu tests negative at that time. Mother reports pt is worse since then. Reports pt wheezing and hears raspy sounds coming from her lungs when pt sleeps. Pt with productive cough of brown phlegm and sore throat. Reports nausea, hot and chills. Unknown if fever. Also reports achey legs. Had diarrhea last week but not recently. Drinking fluids-water and pop. Eating more smaller amounts of food but frequently. Has inaler but does not use it all the time. Denies SOB, chest pain or weakness. Reports more sleepy, especially during the day. Not on any blood thinners. On psychiatric and seizure medications. Reports 3 seizures last month and states this is not usual for her-that pt usually has one seizure per year. 1. AMOUNT: spotting x 3 days 2. ONSET: started a few days ago 3. MENSTRUAL PERIOD: several months ago 4. REGULARITY: went couple years then soptted a few months agpo 5. ABDOMINAL PAIN:no abdominal pain, + back ache 6. :denies 7. :no 8. HORMONES: no 9. BLOOD THINNERS: NO 10. CAUSE: Mother not sure-thinks bronchitis and kidney issue, has not seen [employer] in many years. Denies recent plan consultant surgery, recent plan consultant procedure; known bleeding disorder, cervical cancer, polycystic ovarian disease, or fibroids 11. HEMODYNAMIC STATUS: Denies feeling weak or feeling lightheaded, walking okay Protocols used: Vaginal Bleeding - Tqwwceyk-KSQYN-TV documented in this encounter [facility] 04-11-2022 Miscellaneous Notes Formattin g of this note might be different from the original. Patient notified of results, verbalizes understanding of instructions. Giovana Contreras LPN Can you please call the patient and let her know that her Covid/Flu were negative. I would recommend that she continue supportive care at home. May use Robitussin and Tessalon Perles as needed for cough. Please let me know if she has any questions. Thank you. Silas Lewis APRN.DIXIE documented in this encounter [facility] 04-10-2022 Miscellaneous Notes Formattin g of this note might be different from the original. Patient mother notified of results, verbalizes understanding of instructions. She will tell Pt. Giovana Contreras LPN Can you please call the patient and let her know that her chest x-ray was normal. Office will be in touch with her once we receive COVID/flu results. Continue supportive care at home Thank you. Silas Lewis APRN.DIXIE documented in this encounter [facility] 04-10-2022 Instructions Silas Lewis APRN.CNP - 04/10/2022 2:11 PM EST Get chest xray completed. Continue supportive care at home. May use tessalon perles as needed for cough. Recommend using cough syrup as needed such as robitussin DM. Stay well hydrated. Covid/Flu results will be back tomorrow Follow up pending test results. documented in this encounter [facility] 04-10-2022 History of Presen t illness Narrative This is a 41 year old female who presents today with: Patient presents with: Acute Visit: cough, brown sputum, congestion HISTORY OF PRESENT ILLNESS: Karen Barrera is a 41 year old female. Patient presents with: Acute Visit: cough, brown sputum, congestion Here in the office for cough. Productive cough started 4-5 days ago. Coughing up brown phlegm. Having ongoing wheezing at times. Has been using tessalon perles which has been helpful. History of asthma. Using albuterol as needed. No fever or chills. PAST MEDICAL HISTORY: PAST MEDICAL HISTORY Diagnosis Date Abnormal result of cardiovascular function study Adjustment disorder with depressed mood Chest pain Chronic factitious illness with physical symptoms Closed fracture of unspecified bone right arm Closed fracture of unspecified bone left ankle Conversion disorder Esophageal reflux Myalgia and myositis, unspecified Other forms of dyspnea Seizure disorder (HCC) 09/26/2011 SOB (shortness of breath) Unspecified asthma, with status asthmaticus PAST SURGICAL HISTORY Procedure Laterality Date CHEST X-RAY 06/16/2020 CHEST X-RAY 06/16/2020 ECHO 02/13/2022 EF60% EKG 09/30/2019 PAST SURGICAL HISTORY OF cyst removal from lower back STRESS TEST 03/10/2019 STRESS TEST 02/13/2022 ALLERGIES Dayquil Liquicaps [Mcyowvyuf-Wn-Qm-Acetaminophen ], Arithromycin [Azithromycin], Doxycycline, Latex, Mucinex Dm [Dextromethorphan-Guaifenesin] , Risperdal [Risperidone], Strawberries, Tamiflu [Oseltamivir Phosphate], Topiramate, Bextra [Valdecoxib], and Cephalexin MEDICATIONS Current Outpatient Medications Medication Sig cetirizine (ZYRTEC) 10 mg tablet Take 1 tablet by mouth once daily. montelukast (SINGULAIR) 10 mg tablet Take 1 tablet by mouth daily at bedtime. ibuprofen (MOTRIN) 600 mg tablet Take 1 tablet by mouth every 6 hours as needed for pain. benzonatate (TESSALON PERLES) 100 mg capsule Take 1 capsule by mouth three times daily as needed for cough. albuterol HFA (PROAIR HFA) 90 mcg/actuation inhaler Inhale 2 Puffs as instructed every 4 hours as needed. Norethindrone, Contraceptive, (ORTHO MICRONOR) 0.35 mg tablet Take 1 tablet by mouth once daily. nystatin (NYSTOP) powder Apply 1 application to affected area four times daily. (Patient not taking: Reported on 03/05/2022) oxybutynin (DITROPAN) 5 mg tablet Take 1 tablet by mouth three times daily. iloperidone (FANAPT) 4 mg tab Take 1 tablet by mouth daily at bedtime. topiramate (TOPAMAX) 200 mg tablet Take 2 tablets by mouth twice daily. lacosamide (VIMPAT) 200 mg tab Take 2 tablets by mouth twice daily. therapeutic multivitamin ORAL Tab Take one(1) tablet daily. No current facility-administered medications for this visit. FAMILY HISTORY Problem Relation Age of Onset Asthma Mother other (Reflux) Mother other (angina) Mother Heart Father Seizures Father Seizures Brother Heart Sister ND Heart Sister Seizures Sister Young Diabetes Maternal Grandmother Stroke Maternal Grandmother other (hypoglycemia) Maternal Grandfather Social History Tobacco Use Smoking status: Never Smokeless tobacco: Never Substance Use Topics Alcohol use: No Drug use: No REVIEW OF SYSTEMS GENERAL: No weight loss, malaise or fevers/chills HEENT: Negative for frequent or significant headaches, No changes in hearing or vision. NECK: Negative for lumps, goiter, pain and significant neck swelling RESPIRATORY: + cough/wheezing CARDIOVASCULAR: Negative for chest pain, leg swelling, orthopnea, or palpitations GI: No nausea, vomiting, or diarrhea/constipation. No hematochezia/melena. No heartburn or reflux symptoms. : No history of dysuria, frequency or incontinence MUSCULOSKELETAL: Negative for joint pain or swelling. SKIN: Negative for lesions, rash, and itching ENDOCRINE: Negative for cold or heat intolerance, polyuria, polydipsia and goiter NEURO: No history of headaches, syncope, paralysis, seizures or tremors MOOD: Negative for depression, anxiety, or suicidal ideation. EXAM: BP 110/80 Pulse 90 Temp 37.2 C (98.9 F) Resp 16 Wt (!) 152 kg (335 lb) LMP 02/26/2021 SpO2 98% BMI 59.34 kg/m PHYSICAL EXAM: General Appearance: Well appearing, alert, in no acute distress, well-hydrated, well nourished. Skin: Skin color, texture, turgor normal, no suspicious rashes or lesions. Head: Normocephalic, no masses, lesions, tenderness or abnormalities. Eyes: Anicteric sclera. Extraocular movements are intact. Ears: External ears normal, canals clear. TMs pearly [place]. Nose/Sinuses: Nares normal, septum midline, mucosa normal, no drainage or sinus tenderness. Oropharynx: Lips, mucosa, and tongue normal, teeth and gums normal, oropharynx normal. Neck: Supple, no adenopathy; thyroid symmetric, normal size, no bruits. Lungs: Lungs clear to auscultation. No wheezing, rhonchi, rales. + Cough Heart: RRR without murmur, gallop, or rubs. No ectopy. Extremities: No deformities, edema, skin discoloration, clubbing or cyanosis. Good capillary refill. Peripheral Pulses: Normal, Capillary refill <2secs, strong peripheral pulses, Pulses palpable. Neurologic: Gait normal. Sensation grossly intact. ASSESSMENT/PLAN: 1. Viral illness - ICD9: 079.99, ICD10: B34.9 (primary diagnosis) - Discussed viral etiology and rationale for treatment. - Symptomatic treatment with prn analgesia - Supportive care with fluids and rest - The patient may also use Cough syrup with codeine- Rx given. 2. Acute cough - ICD9: 786.2, ICD10: R05.1 - Get chest xray completed. - Continue supportive care at home. - May continue to use Tessalon Perles as needed. - XR CHEST 2V FRONTAL/LAT - COVID WITH FLUA+B, ROUTINE Follow-up pending test results or sooner as needed. Discussed treatment plan and patient voices understanding. Patient's questions answered appropriately. Medications and potential side effects were discussed and patient voices understanding. Silas Lewis APRN.GENERAL ASSISTANT This note was partially generated using Pi[employer] voice recognition system. Note was reviewed for accuracy. There may be minor misspellings or grammar miscues with [employer] voice recognition. documented in this encounter [facility] 04-10-2022 Miscellaneous Notes Formattin g of this note is different from the original. Protocol recommends see provider in 4 hours. Scheduled same day appt with [facility]. Reason for Disposition Wheezing is present Answer Assessment - Initial Assessment Questions 1. ONSET: Cough started 3 days ago. 2. SEVERITY: Constant 3. SPUTUM: Brown sputum 4. HEMOPTYSIS: No 5. DIFFICULTY BREATHING: Mild SOB, audible wheezing 6. FEVER: Thinks she has fever. Hot/chills. Did not take temp. 7. CARDIAC HISTORY: See's credit risk associate- Dr. Carrero- thinks there is something wrong on inside of heart and has appt with specialist at [facility]. 8. LUNG HISTORY: Asthma 9. PE RISK FACTORS: No 10. OTHER SYMPTOMS: Wheezing. Has had CP for a while now (more than 2 months) and sees credit risk associate for this. Ear pain. No sore throat. Runny nose. 11. : No 12. TRAVEL: No exposures. No covid vaccine. No flu vaccine. Protocols used: Cough - Acute Rtlfhyuwpz-TVEGL-SO documented in this encounter [facility] 04-07-2022 Miscellaneous Notes Formattin g of this note might be different from the original. Unable to reach patient. Left VM to return call to office. Please read below and advise. Sherlyn Hood MA Agree. Patient needs evaluated to determine if antibiotic is recommended or if this is just a viral illness. Jess James APRN.DIXIE Patient call in for coughing up brown mucous and cough. Patient states that she has congestion everywhere. Patient has had cough x 4 days. Nurse Triage assessment completed with protocol recommending for disposition of See PCP in 4 hours. Care advice reviewed with patient, patient stated understanding. Patient advised to come into express care to be evaluated. Patient states that she has no way to get in. Patient asking if provider can send antibiotic. Advised patient that she needs to be seen. Reason for Disposition [1] MILD difficulty breathing (e.g., minimal/no SOB at rest, SOB with walking, pulse <100) AND [2] still present when not coughing Answer Assessment - Initial Assessment Questions 1. ONSET: Cough began 4 days ago 2. SEVERITY: Has been taking Tessalon perles which help 3. SPUTUM Brown Sputum 4. HEMOPTYSIS: Denies 5. DIFFICULTY BREATHING: Patient states that she has short of breath when she walks 6. FEVER: Basia red last night; did not take temperature 7. CARDIAC HISTORY: Denies 8. LUNG HISTORY: Asthma 9. PE RISK FACTORS: Denies 10. OTHER SYMPTOMS: Denies other symptoms Protocols used: Cough - Acute Jgkkoyxlny-RTLRQ-XS documented in this encounter [facility] 03-10-2022 Miscellaneous Notes Formattin g of this note might be different from the original. Noted, thank you. Silas Lewis APRN.CNP Patient notified of results, verbalizes understanding of instructions. CT scan offered to further view. Pt declined. Advise to follow up with Urology. Giovana Contreras LPN Can you please call the patient and let her know that I reviewed her test results. Kidney/bladder ultrasound was normal, no stones noted but does refer that they had difficulty seeing a clear image. Urinalysis did come back positive for calcium oxalate which is seen with kidney stones. Culture was negative for any bacteria. Labs were relatively normal, I would encourage that she drink adequate fluids throughout the day. Can you please ask the patient how she has been feeling? Silas Lewis APRN.DIXIE documented in this encounter [facility] 03-05-2022 Instructions Silas Lewis APRN.CNP - 03/05/2022 2:45 PM EST Get labs and urine testing completed. Schedule appointment for ultrasound as soon as possible. If you cannot urinate go to ER. May use tessalon perles as needed for cough. Follow up pending test results or sooner as needed. documented in this encounter [facility] 03-05-2022 History of Presen t illness Narrative This is a 41 year old female who presents today with: Patient presents with: Acute Visit: no voiding HISTORY OF PRESENT ILLNESS: Karen Barrera is a 41 year old female. Patient presents with: Acute Visit: no voiding Here in the office for difficulty urinating. Started a couple of weeks. Refers she has difficulty getting stream started. Denies any dysuria or hematuria. Has rx for taking oxybutynin But not taking right now. Refers she stays well hydrated drinking about 90 ounces of water per day. Refers she has bilateral flank pain for several months. Denies any fever or chills. PAST MEDICAL HISTORY: PAST MEDICAL HISTORY Diagnosis Date Adjustment disorder with depressed mood Chronic factitious illness with physical symptoms Closed fracture of unspecified bone right arm Closed fracture of unspecified bone left ankle Conversion disorder Esophageal reflux Myalgia and myositis, unspecified Seizure disorder (HCC) 09/26/2011 Unspecified asthma, with status asthmaticus PAST SURGICAL HISTORY Procedure Laterality Date PAST SURGICAL HISTORY OF cyst removal from lower back ALLERGIES Dayquil Liquicaps [Ignucupmw-Jc-Yj-Acetaminophen ], Arithromycin [Azithromycin], Doxycycline, Latex, Mucinex Dm [Dextromethorphan-Guaifenesin] , Risperdal [Risperidone], Strawberries, Tamiflu [Oseltamivir Phosphate], Topiramate, Bextra [Valdecoxib], and Cephalexin MEDICATIONS Current Outpatient Medications Medication Sig benzonatate (TESSALON PERLES) 100 mg capsule Take 1 capsule by mouth three times daily as needed for cough. albuterol HFA (PROAIR HFA) 90 mcg/actuation inhaler Inhale 2 Puffs as instructed every 4 hours as needed. cetirizine (ZYRTEC) 10 mg tablet Take 1 tablet by mouth once daily. ibuprofen (MOTRIN) 600 mg tablet Take 1 tablet by mouth every 6 hours as needed for pain. montelukast (SINGULAIR) 10 mg tablet Take 1 tablet by mouth daily at bedtime. Norethindrone, Contraceptive, (ORTHO MICRONOR) 0.35 mg tablet Take 1 tablet by mouth once daily. nystatin (NYSTOP) powder Apply 1 application to affected area four times daily. oxybutynin (DITROPAN) 5 mg tablet Take 1 tablet by mouth three times daily. iloperidone (FANAPT) 4 mg tab Take 1 tablet by mouth daily at bedtime. topiramate (TOPAMAX) 200 mg tablet Take 2 tablets by mouth twice daily. lacosamide (VIMPAT) 200 mg tab Take 2 tablets by mouth twice daily. therapeutic multivitamin ORAL Tab Take one(1) tablet daily. No current facility-administered medications for this visit. FAMILY HISTORY Problem Relation Age of Onset Asthma Mother other (Reflux) Mother other (angina) Mother Heart Father Seizures Father Seizures Brother Heart Sister ND Heart Sister Seizures Sister Young Diabetes Maternal Grandmother Stroke Maternal Grandmother other (hypoglycemia) Maternal Grandfather Social History Tobacco Use Smoking status: Never Smokeless tobacco: Never Substance Use Topics Alcohol use: No Drug use: No REVIEW OF SYSTEMS GENERAL: No weight loss, malaise or fevers/chills HEENT: Negative for frequent or significant headaches, No changes in hearing or vision. NECK: Negative for lumps, goiter, pain and significant neck swelling RESPIRATORY: Negative for cough, hemoptysis, wheezing, dyspnea or shortness of breath CARDIOVASCULAR: Negative for chest pain, leg swelling, orthopnea, or palpitations GI: No nausea, vomiting, or diarrhea/constipation. No hematochezia/melena. No heartburn or reflux symptoms. : + Difficulty urinating/bilateral flank pain MUSCULOSKELETAL: Negative for joint pain or swelling. SKIN: Negative for lesions, rash, and itching ENDOCRINE: Negative for cold or heat intolerance, polyuria, polydipsia and goiter NEURO: No history of headaches, syncope, paralysis, seizures or tremors MOOD: Negative for depression, anxiety, or suicidal ideation. EXAM: BP 120/88 Pulse 88 Resp 20 Wt (!) 151 kg (333 lb) LMP 02/26/2021 SpO2 98% BMI 58.99 kg/m PHYSICAL EXAM: General Appearance: Well appearing, alert, in no acute distress, well-hydrated, well nourished. Skin: Skin color, texture, turgor normal, no suspicious rashes or lesions. Head: Normocephalic, no masses, lesions, tenderness or abnormalities. Eyes: Anicteric sclera. Extraocular movements are intact. Lungs: Lungs clear to auscultation. No wheezing, rhonchi, rales. Heart: RRR without murmur, gallop, or rubs. No ectopy. Abdomen: Abdomen soft, non-tender. Bowel sounds normal. No masses, organomegaly.+ Bilateral CVA tenderness. Extremities: No deformities, edema, skin discoloration, clubbing or cyanosis. Good capillary refill. Peripheral Pulses: Normal, Capillary refill <2secs, strong peripheral pulses, Pulses palpable. Neurologic: Gait normal. Sensation grossly intact. ASSESSMENT/PLAN: 1. Decreased urine stream - ICD9: 788.62, ICD10: R39.198 (primary diagnosis) - Unable to provide urine sample in office. - Get labs and US completed. - Instructed to go to ER if unable to urinate. - US KIDNEY/BLADDER - CBC + DIFF - COMP METABOLIC PANEL - URINALYSIS, WITH MICROSCOPIC - URINE CULTURE 2. Bilateral flank pain - ICD9: 789.09, ICD10: R10.9 - Same plan as #1. 3. Acute cough - ICD9: 786.2, ICD10: R05.1 - Refill provided. - BENZONATATE 100 MG CAPSULE Follow up results or sooner as needed. Discussed treatment plan and patient voices understanding. Patient's questions answered appropriately. Medications and potential side effects were discussed and patient voices understanding. Silas Lewis APRN.DIXIE This note was partially generated using PiAuto voice recognition system. Note was reviewed for accuracy. There may be minor misspellings or grammar miscues with PiAuto voice recognition. documented in this encounter [facility] 03-04-2022 Miscellaneous Notes Formattin g of this note might be different from the original. Noted Daniel Chun MD Mother calls to reports pt is drinking a lot of soda and that is why pt has been gaining weight. Mother also reports pt has been drinking a lot of ice water and that is giving pt headaches. Mother reports pt is having decreased urination. Appt scheduled for tomorrow. Sheree Roberson LPN documented in this encounter [facility] 01-06-2022 Miscellaneous Notes Addended by: DANIEL CHUN on: 01/06/2022 04:18 PM Modules accepted: Orders OK to refill as ordered Daniel Chun MD Pt last given Rx on 12/09/21 this has been 1 month ago. Chantel Townsend Ma Patient is calling to request a refill on the tessalon pearls, and Augmentin as she is still coughing and the virus is still in her chest. She usees the [facility] in [place], she mentioned provider told her they would refill the medication again and to just call back for that refill. Patient can be reached at phone# [phone], this number has been verified. documented in this encounter [facility] 12-10-2021 Miscellaneous Notes Formattin g of this note might be different from the original. Referral and demo faxed to Dr. Behzad Carreno's office. Will have them call pt to schedule. Mariana Gamez Ma Mother called back and would like the referral faxed to Dr. Behzad Carreno at [facility]. Called and spoke with Mother, Kennedi notifying her that Derm Referral has been placed. Made here aware [facility] has no on locally but there are other Providers. States her Son got paperwork for someone in the hospital. Will call back with Provider information to fax referral too. Keep Encounter open. Once Mother calls back fax referral information. Chantel Townsend Ma OK to refer to Derm Daniel Chun MD Spoke with patients mother Kennedi who states this is something that needs to be evaluated sooner than later. States the mole has gotten bigger in size and that it bleeds occasionally. Wanting to see Dermatology. Advise. Nadia Parsons If it has not changed for the last 2 years we can just look at it the next time she is in for an appt Daniel Chun MD Patient has a mole on her right hip for a couple of years with no change in color or size, however she wonders if she should see a sonographer for this mole? Please call to advise at [phone]. Phone number is house phone and has been verified. Thank you documented in this encounter [facility] 12-10-2021 Miscellaneous Notes Formattin g of this note is different from the original. The following approved medication requests have been transmitted electronically. Requested Prescriptions Signed Prescriptions Disp Refills albuterol HFA (PROAIR HFA) 90 mcg/actuation inhaler 18 g 2 Sig: Inhale 2 Puffs as instructed every 4 hours as needed. Authorizing Provider: DANIEL CHUN ibuprofen (MOTRIN) 600 mg tablet 30 tablet 5 Sig: Take 1 tablet by mouth every 6 hours as needed for pain. Authorizing Provider: DANIEL CHUN Ma Ok for orders as filed Daniel Chun MD Karen is calling to report that she is not interested in using the Voltaren cream. She read that it may cause heart attacks. She would prefer the Ibuprofen 600mg to be sent to her pharmacy. She is also requesting the albuterol inhaler as pended. Patient can be reached at [phone] with any questions. documented in this encounter [facility] 12-09-2021 History of Presen t illness Narrative Chief Complaint Patient presents with: Physical HPI Karen Barrera is a 41 year old female who presents here today for a Physical. Pt not seen in office since 09/10/20. Has pain with urination and urinary frequency for the last few days. Has seen [facility] in the past due to chest pain and dyspnea on exertion. Cardiac work up completed and normal. She is concerned about diabetes, she does not check her blood sugars. She is thirsty a lot, urinates a lot, losing weight. She did bring a large bottle of Mountain Dew in with her to her visit. Seizures: Follow with Neurology for seizure disorder who is treating her with medications. Last seizure was 2 weeks ago. Pain: Chronic myalgia pain. Pt believes to have arthritis in her knees. She does use Tylenol and ice. She feels the that right knee is worse than the left knee. She admits to some swelling of the knee. Sick: concerned about bronchitis. She has cough, chest pains and tightness due to the coughing, coughing up brown phlegm, rosario ear pain, sore throat, SOB, headache. Denies any fevers. Has not been taking anything for her sx. Past medical history, appointments, medications, allergies reviewed. Previous Medical History PAST MEDICAL HISTORY Diagnosis Date Adjustment disorder with depressed mood Chronic factitious illness with physical symptoms Closed fracture of unspecified bone right arm Closed fracture of unspecified bone left ankle Conversion disorder Esophageal reflux Myalgia and myositis, unspecified Seizure disorder (HCC) 09/26/2011 Unspecified asthma, with status asthmaticus Previous Surgical History PAST SURGICAL HISTORY Procedure Laterality Date PAST SURGICAL HISTORY OF cyst removal from lower back Family History FAMILY HISTORY Problem Relation Age of Onset Asthma Mother other (Reflux) Mother other (angina) Mother Heart Father Seizures Father Seizures Brother Heart Sister ND Heart Sister Seizures Sister Young Diabetes Maternal Grandmother Stroke Maternal Grandmother other (hypoglycemia) Maternal Grandfather Patient Allergies ALLERGIES Allergen Reactions Dayquil Liquicaps [* Other: See Comments Caused Seizure Arithromycin [Azith* GI Upset Z-Pack Doxycycline GI Upset Latex Rash Mucinex Dm [Dextrom* Intolerance gran mal seizure. but can take robitussin-DM for cough without effect Risperdal [Risperid* Other: See Comments Caused seizure pt report Strawberries Hives Tamiflu [Oseltamivi* Other: See Comments Almost caused seizure Topiramate Other: See Comments Generic causes Seizures. Able to take name brand Topamax Bextra [Valdecoxib] Rash Cephalexin Intolerance Amoxil is ok Current Medications Current Outpatient Medications on File Prior to Visit Medication Sig albuterol HFA (PROAIR HFA) 90 mcg/actuation inhaler Inhale 2 Puffs as instructed every 4 hours as needed. Norethindrone, Contraceptive, (ORTHO MICRONOR) 0.35 mg tablet Take 1 tablet by mouth once daily. nystatin (NYSTOP) powder Apply 1 application to affected area four times daily. montelukast (SINGULAIR) 10 mg tablet Take 1 tablet by mouth daily at bedtime. cetirizine (ZYRTEC) 10 mg tablet Take 1 tablet by mouth once daily. oxybutynin (DITROPAN) 5 mg tablet Take 1 tablet by mouth three times daily. ibuprofen (MOTRIN) 600 mg tablet Take 1 tablet by mouth every 6 hours as needed for Pain. fluticasone (FLONASE) 50 mcg/actuation nasal spray Use 2 Sprays in each nostril once daily. Rinse mouth after use. fluticasone (FLOVENT) 44 mcg/actuation inhaler Inhale 1 Puff as instructed twice daily. iloperidone (FANAPT) 4 mg tab Take 1 tablet by mouth daily at bedtime. Inhalational Spacing Device (BREATHERITE MDI SPACER) spcr For use with proair inhaler topiramate (TOPAMAX) 200 mg tablet Take 2 tablets by mouth twice daily. lacosamide (VIMPAT) 200 mg tab Take 2 tablets by mouth twice daily. therapeutic multivitamin ORAL Tab Take one(1) tablet daily. No current facility-administered medications on file prior to visit. Social History Social History Tobacco Use Smoking status: Never Smokeless tobacco: Never Substance Use Topics Alcohol use: No Drug use: No EXAM: BP 118/70 Pulse 80 Temp 36.6 C (97.8 F) (Tympanic) Resp 18 Wt (!) 153.9 kg (339 lb 4.8 oz) LMP 02/26/2021 BMI 60.10 kg/m General Appearance: Well appearing, alert, in no acute distress, well-hydrated, well nourished. and Morbidly obese. Ears: External ears normal, canals clear. Lungs: Lungs clear to auscultation. No wheezing, rhonchi, rales.. Heart: RRR without murmur, gallop, or rubs. No ectopy. Extremities: rosario knees, right side worse, pain on palpation. Health Maintenance List HEPATITIS B(1 of 3 - 3-dose series) Never done COVID-19 VACCINE(1) Never done PNEUMOCOCCAL(1 - PCV) Never done SPIROMETRY Never done HEPATITIS C SCREENING Never done DEPRESSION SCREENING due on 06/03/2019 ANNUAL PCP TEAM CHRONIC DISEASE VISIT due on 09/10/2021 INFLUENZA(1) due on 12/19/2021 PAP TESTING due on 06/03/2023 HPV TESTING due on 06/03/2023 DTAP,TDAP,TD(2 - Td or Tdap) due on 06/03/2028 HIV SCREENING Completed Data reviewed none ASSESSMENT/PLAN: 1. Wellness examination - ICD9: V70.0, ICD10: Z00.00 (primary diagnosis) 2. Sinobronchitis - ICD9: 473.9, 490, ICD10: J32.9, J40 - BENZONATATE 100 MG CAPSULE - CBC + DIFF - AMOXICILLIN 875 MG-POTASSIUM CLAVULANATE 125 MG TABLET 3. Otalgia of both ears - ICD9: 388.70, ICD10: H92.03 4. Obesity, Class III, BMI >= 40 - ICD9: 278.01, ICD10: E66.01 - HGB A1C - COMP METABOLIC PANEL - LIPID PANEL, NONFASTING 5. Seizure disorder (HCC) - ICD9: 345.90, ICD10: G40.909 - COMP METABOLIC PANEL - CBC + DIFF 6. Arthritis of knee - ICD9: 716.96, ICD10: M17.10 - DICLOFENAC 1 % TOPICAL GEL 7. Moderate persistent asthma with acute exacerbation - ICD9: 493.92, ICD10: J45.41 - MONTELUKAST 10 MG TABLET 8. Nasal congestion - ICD9: 478.19, ICD10: R09.81 - MONTELUKAST 10 MG TABLET 9. Dysuria - ICD9: 788.1, ICD10: R30.0 - UA WITH CULTURE IF INDICATED Notify of lab results Follow up prn I agree with the Chief Complaint, ROS, and Past Histories independently gathered by the clinical direct support specialist and the remaining scribed note accurately describes my personal service to the patient. Medical Decision Making: Problems: Moderate: New problem with uncertain prognosis and 2+ stable chronic illnesses Data: Unique test(s) ordered: 3+ Risk: Moderate: Drug management Medical Decision Making Level: 4 - Moderate Daniel Chun MD The documentation for this note was completed by Mariana Gamez Ma acting as scribe for Daniel Chun MD. December 09, 2021 2:44 PM. Mariana Gamez Ma documented in this encounter [facility] 11-15-2021 Miscellaneous Notes The following approved medication requests have been transmitted electronically. Pending Prescriptions Disp Refills ALBUTEROL SULFATE HFA 90 MCG/ACTUATION AEROSOL INHALER 18 g 2 Sig: Inhale 2 Puffs as instructed every 4 hours as needed. LEEANNA: No Silas Lewis APRN.CNP Patient has been identified by name and date of : Yes Parent/Guardian phones for refill(s): Pending Prescriptions Disp Refills ALBUTEROL SULFATE HFA 90 MCG/ACTUATION AEROSOL INHALER 18 g 0 Sig: Inhale 2 Puffs as instructed every 4 hours as needed. LEEANNA: No Date of last office visit in primary care: 09/10/2020, no future appt scheduled Last 2 Encounter Wt Readings: Date: Wt: 03/18/2021 149.7 kg (330 lb) 03/06/2021 149.7 kg (330 lb) Previous labs/tests for medication: Not applicable Please advise. Thank you. 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/08/2015 documented as of this encounter (statuses as of 12/09/2021) [facility] History of Past illness Narrative* Problem Noted Date Resolved Date Irregular menses 10/03/2011 10/27/2012 Other malaise and fatigue 12/30/20042014 Myalgia and myositis, unspecified 05/08/2014 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/08/2015 documented as of this encounter (statuses as of 12/10/2021) [facility] of Past illness Narrative* Problem Noted Date Resolved Date Irregular menses 10/03/2011 10/27/2012 Other malaise and fatigue 12/30/20042014 Myalgia and myositis, unspecified 05/08/2014 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/08/2015 documented as of this encounter (statuses as of 12/10/2021) [facility] of Past illness Narrative* Problem Noted Date Resolved Date Irregular menses 10/03/2011 10/27/2012 Other malaise and fatigue 12/30/20042014 Myalgia and myositis, unspecified 05/08/2014 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/08/2015 documented as of this encounter (statuses as of 01/06/2022) [facility] of Past illness Narrative* Problem Noted Date Resolved Date Irregular menses 10/03/2011 10/27/2012 Other malaise and fatigue 12/30/20042014 Myalgia and myositis, unspecified 05/08/2014 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/08/2015 documented as of this encounter (statuses as of 03/04/2022) [facility] of Past illness Narrative* Problem Noted Date Resolved Date Irregular menses 10/03/2011 10/27/2012 Other malaise and fatigue 12/30/20042014 Myalgia and myositis, unspecified 05/08/2014 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/08/2015 documented as of this encounter (statuses as of 03/05/2022) [facility] of Past illness Narrative* Problem Noted Date Resolved Date Irregular menses 10/03/2011 10/27/2012 Other malaise and fatigue 12/30/20042014 Myalgia and myositis, unspecified 05/08/2014 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/08/2015 documented as of this encounter (statuses as of 03/07/2022) [facility] Past illness Narrative* Problem Noted Date Resolved Date Irregular menses 10/03/2011 10/27/2012 Other malaise and fatigue 12/30/20042014 Myalgia and myositis, unspecified 05/08/2014 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/08/2015 documented as of this encounter (statuses as of 03/10/2022) [facility] Past illness Narrative* Problem Noted Date Resolved Date Irregular menses 10/03/2011 10/27/2012 Other malaise and fatigue 12/30/20042014 Myalgia and myositis, unspecified 05/08/2014 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/08/2015 documented as of this encounter (statuses as of 04/09/2022) [facility] Past illness Narrative* Problem Noted Date Resolved Date Irregular menses 10/03/2011 10/27/2012 Other malaise and fatigue 12/30/20042014 Myalgia and myositis, unspecified 05/08/2014 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/08/2015 documented as of this encounter (statuses as of 04/11/2022) [facility] Past illness Narrative* Problem Noted Date Resolved Date Irregular menses 10/03/2011 10/27/2012 Other malaise and fatigue 12/30/20042014 Myalgia and myositis, unspecified 05/08/2014 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/08/2015 documented as of this encounter (statuses as of 04/12/2022) [facility] Past illness Narrative* Problem Noted Date Resolved Date Irregular menses 10/03/2011 10/27/2012 Other malaise and fatigue 12/30/20042014 Myalgia and myositis, unspecified 05/08/2014 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/08/2015 documented as of this encounter (statuses as of 04/13/2022) [facility] Past illness Narrative* Problem Noted Date Resolved Date Irregular menses 10/03/2011 10/27/2012 Other malaise and fatigue 12/30/20042014 Myalgia and myositis, unspecified 05/08/2014 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/08/2015 documented as of this encounter (statuses as of 04/26/2022) [facility] Past illness Narrative* Problem Noted Date Resolved Date Irregular menses 10/03/2011 10/27/2012 Other malaise and fatigue 12/30/20042014 Myalgia and myositis, unspecified 05/08/2014 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/08/2015 documented as of this encounter (statuses as of 05/07/2022) [facility] Narrative* Problem Noted Date Resolved Date Irregular menses 10/03/2011 10/27/2012 Other malaise and fatigue 12/30/20042014 Myalgia and myositis, unspecified 05/08/2014 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/08/2015 documented as of this encounter (statuses as of 05/15/2022) [facility] Narrative* Problem Noted Date Resolved Date Irregular menses 10/03/2011 10/27/2012 Other malaise and fatigue 12/30/20042014 Myalgia and myositis, unspecified 05/08/2014 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/08/2015 documented as of this encounter (statuses as of 05/16/2022) [facility] Past [facility] Narrative* Problem Noted Date Resolved Date Irregular menses 10/03/2011 10/27/2012 Other malaise and fatigue 12/30/20042014 Myalgia and myositis, unspecified 05/08/2014 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/08/2015 documented as of this encounter (statuses as of 05/29/2022) [facility] Past [facility] Narrative* Problem Noted Date Resolved Date Irregular menses 10/03/2011 10/27/2012 Other malaise and fatigue 12/30/20042014 Myalgia and myositis, unspecified 05/08/2014 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/08/2015 documented as of this encounter (statuses as of 06/05/2022) [facility] N[facility]ative* Problem Noted Date Resolved Date Irregular menses 10/03/2011 10/27/2012 Other malaise and fatigue 12/30/20042014 Myalgia and myositis, unspecified 05/08/2014 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/08/2015 documented as of this encounter (statuses as of 06/16/2022) [facility] Narrative* Problem Noted Date Resolved Date Irregular menses 10/03/2011 10/27/2012 Other malaise and fatigue 12/30/20042014 Myalgia and myositis, unspecified 05/08/2014 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/08/2015 documented as of this encounter (statuses as of 07/14/2022) [facility] Narrative* Problem Noted Date Resolved Date Irregular menses 10/03/2011 10/27/2012 Other malaise and fatigue 12/30/20042014 Myalgia and myositis, unspecified 05/08/2014 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/08/2015 documented as of this encounter (statuses as of 07/30/2022) [facility] Narrative* Problem Noted Date Resolved Date Irregular menses 10/03/2011 10/27/2012 Other malaise and fatigue 12/30/20042014 Myalgia and myositis, unspecified 05/08/2014 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/08/2015 documented as of this encounter (statuses as of 08/02/2022) [facility] N[facility]ative* Problem Noted Date Resolved Date Irregular menses 10/03/2011 10/27/2012 Other malaise and fatigue 12/30/20042014 Myalgia and myositis, unspecified 05/08/2014 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/08/2015 documented as of this encounter (statuses as of 08/09/2022) [facility] Narrative* Problem Noted Date Resolved Date Irregular menses 10/03/2011 10/27/2012 Other malaise and fatigue 12/30/20042014 Myalgia and myositis, unspecified 05/08/2014 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/08/2015 documented as of this encounter (statuses as of 08/14/2022) [facility]* Problem Noted Date Resolved Date Irregular menses 10/03/2011 10/27/2012 Other malaise and fatigue 12/30/20042014 Myalgia and myositis, unspecified 05/08/2014 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/08/2015 documented as of this encounter (statuses as of 08/25/2022) [facility]* Problem Noted Date Resolved Date Irregular menses 10/03/2011 10/27/2012 Other malaise and fatigue 12/30/20042014 Myalgia and myositis, unspecified 05/08/2014 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/08/2015 documented as of this encounter (statuses as of 09/19/2022) [facility]* Problem Noted Date Resolved Date Irregular menses 10/03/2011 10/27/2012 Other malaise and fatigue 12/30/20042014 Myalgia and myositis, unspecified 05/08/2014 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/08/2015 documented as of this encounter (statuses as of 09/23/2022) [facility]* Problem Noted Date Resolved Date Irregular menses 10/03/2011 10/27/2012 Other malaise and fatigue 12/30/20042014 Myalgia and myositis, unspecified 05/08/2014 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/08/2015 documented as of this encounter (statuses as of 10/18/2022) [facility]* Problem Noted Date Resolved Date Irregular menses 10/03/2011 10/27/2012 Other malaise and fatigue 12/30/20042014 Myalgia and myositis, unspecified 05/08/2014 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/08/2015 documented as of this encounter (statuses as of 10/20/2022) [facility]* Problem Noted Date Diagnosed Date Resolved Date Irregular menses 10/03/2011 10/27/2012 Other malaise and fatigue 12/30/2004 Myalgia and myositis, unspecified 05/08/2014 Chronic factitious illness w ith physical symptoms 10/08/2015 documented as of this encounter (statuses as of 12/12/2022) [facility]* Problem Noted Date Diagnosed Date Resolved Date Irregular menses 10/03/2011 10/27/2012 Other malaise and fatigue 12/30/2004 Myalgia and myositis, unspecified 05/08/2014 Chronic factitious illness w ith physical symptoms 10/08/2015 documented as of this encounter (statuses as of 12/16/2022) [facility]* Problem Noted Date Diagnosed Date Resolved Date Irregular menses 10/03/2011 10/27/2012 Other malaise and fatigue 12/30/2004 Myalgia and myositis, unspecified 05/08/2014 Chronic factitious illness w ith physical symptoms 10/08/2015 documented as of this encounter (statuses as of 12/24/2022) [facility]* Problem Noted Date Diagnosed Date Resolved Date Irregular menses 10/03/2011 10/27/2012 Other malaise and fatigue 12/30/2004 Myalgia and myositis, unspecified 05/08/2014 Chronic factitious illness w ith physical symptoms 10/08/2015 documented as of this encounter (statuses as of 12/26/2022) [facility]* Problem Noted Date Diagnosed Date Resolved Date Irregular menses 10/03/2011 10/27/2012 Other malaise and fatigue 12/30/2004 Myalgia and myositis, unspecified 05/08/2014 Chronic factitious illness w ith physical symptoms 10/08/2015 documented as of this encounter (statuses as of 12/30/2022) [facility]* Problem Noted Date Diagnosed Date Resolved Date Irregular menses 10/03/2011 10/27/2012 Other malaise and fatigue 12/30/2004 Myalgia and myositis, unspecified 05/08/2014 Chronic factitious illness w ith physical symptoms 10/08/2015 documented as of this encounter (statuses as of 01/30/2023) [facility]* Problem Noted Date Diagnosed Date Resolved Date Irregular menses 10/03/2011 10/27/2012 Other malaise and fatigue 12/30/2004 Myalgia and myositis, unspecified 05/08/2014 Chronic factitious illness w ith physical symptoms 10/08/2015 documented as of this encounter (statuses as of 02/09/2023) [facility]* Problem Noted Date Diagnosed Date Resolved Date Irregular menses 10/03/2011 10/27/2012 Other malaise and fatigue 12/30/2004 Myalgia and myositis, unspecified 05/08/2014 Chronic factitious illness w ith physical symptoms 10/08/2015 documented as of this encounter (statuses as of 02/22/2023) [facility]* Problem Noted Date Diagnosed Date Resolved Date Irregular menses 10/03/2011 10/27/2012 Other malaise and fatigue 12/30/2004 Myalgia and myositis, unspecified 05/08/2014 Chronic factitious illness w ith physical symptoms 10/08/2015 documented as of this encounter (statuses as of 02/22/2023) [facility]* Problem Noted Date Diagnosed Date Resolved Date Irregular menses 10/03/2011 10/27/2012 Other malaise and fatigue 12/30/2004 Myalgia and myositis, unspecified 05/08/2014 Chronic factitious illness w ith physical symptoms 10/08/2015 documented as of this encounter (statuses as of 02/22/2023) [facility]* Problem Noted Date Diagnosed Date Resolved Date Irregular menses 10/03/2011 10/27/2012 Other malaise and fatigue 12/30/2004 Myalgia and myositis, unspecified 05/08/2014 Chronic factitious illness w ith physical symptoms 10/08/2015 documented as of this encounter (statuses as of 03/03/2023) [facility]* Problem Noted Date Diagnosed Date Resolved Date Irregular menses 10/03/2011 10/27/2012 Other malaise and fatigue 12/30/2004 Myalgia and myositis, unspecified 05/08/2014 Chronic factitious illness w ith physical symptoms 10/08/2015 documented as of this encounter (statuses as of 03/25/2023) [facility] note* Diagnosis Cough Moderate persistent asthma with acute exacerbation documented in this encounter [facility] note* Diagnosis Sinobronchitis- Primary Unspecified sinusitis (chronic) Otalgia of both ears Otalgia, unspecified Obesity, Class III, BMI >= 40 Morbid obesity Seizure disorder (HCC) Unspecified epilepsy without mention of intractable epilepsy Arthritis of knee Unspecified arthropathy, lower leg Moderate persistent asthma with acute exacerbation Nasal congestion Other diseases of nasal cavity and sinuses Dysuria documented in this encounter [facility] note* Diagnosis Cough Moderate persistent asthma with acute exacerbation Sinobronchitis Unspecified sinusitis (chronic) Otalgia of both ears Otalgia, unspecified [facility]* Diagnosis Skin lesion- Primary Unspecified disorder of skin and subcutaneous tissue documented [facility] this encounter [facility]* Diagnosis Sinobronchitis Unspecified sinusitis (chronic) documented in this encounter [facility]* Diagnosis Decreased urine stream- Primary Slowing of urinary stream Bilateral flank pain Abdominal pain, unspecified site Sinobronchitis Unspecified sinusitis (chronic) Acute cough documented [facility] encounter [facility]* Diagnosis Viral illness- Primary Unspecified viral infection, in conditions classified elsewhere and of unspecified site Acute cough documented in this encounter [facility] note* Diagnosis Bilateral flank pain- Primary Abdominal pain, unspecified site Decreased urine stream Slowing of urinary stream Calcium oxalate crystals in urine Other nonspecific finding on examination of urine documented in this encounter [facility] note* Diagnosis Sinobronchitis- Primary Unspecified sinusitis (chronic) Acute cough SOB (shortness of breath) Shortness of breath documented in this encounter [facility] note* Diagnosis Acute cough SOB (shortness of breath) Shortness of breath documented [facility] encounter [facility]* Diagnosis URI, acute- Primary Acute upper respiratory infections of unspecified site Acute recurrent sinusitis, unspecified [facility] Sinobronchitis- Primary Unspecified sinusitis (chronic) Rhinorrhea Other diseases of nasal cavity and sinuses Moderate persistent asthma with acute exacerbation Suspected COVID-19 virus infection [facility] Diagnosis Encounter for screening mammogram for breast cancer [facility] Diagnosis Elevated glucose- Primary Other abnormal glucose Sinobronchitis Unspecified sinusitis (chronic) Moderate persistent asthma with acute exacerbation [facility] Diagnosis Sinobronchitis Unspecified sinusitis (chronic) [facility] Diagnosis Moderate persistent asthma with acute exacerbation- Primary Acute cough Sinus congestion Other diseases of nasal cavity and sinuses Rhinorrhea Other diseases of nasal cavity and sinuses Acute pain of right knee Dysuria [facility]* Diagnosis Wellness examination- Primary Yeast infection of the skin Candidiasis of skin and nails Chronic cough Cough Moderate persistent asthma with acute exacerbation Hemangioma of skin Hemangioma of skin and subcutaneous tissue Seizure disorder (HCC) Unspecified epilepsy without mention of intractable epilepsy Mixed incontinence urge and stress (male)(female) Conversion disorder Screening for diabetes mellitus Screening cholesterol level Screening for lipoid disorders [facility]* Diagnosis Back pain, unspecified back location, unspecified back pain laterality, unspecified chronicity- Primary Curvature of spine Unspecified curvature of spine Bilateral hip pain Pain in joint, pelvic region and thigh Sinobronchitis Unspecified sinusitis (chronic) Cough, unspecified type Delusional disorders (HCC) Obesity, Class III, BMI 40-49.9 (morbid obesity) (HCC) Morbid obesity Hyperprolactinemia (HCC) Other and unspecified anterior pituitary hyperfunction [facility] Diagnosis Decreased urine stream Slowing of urinary stream Calcium oxalate crystals in urine Other nonspecific finding on examination of urine Bilateral flank pain Abdominal pain, unspecified site [facility] Diagnosis Back pain, unspecified back location, unspecified back pain laterality, unspecified chronicity Curvature of spine Unspecified curvature of spine [facility]* Diagnosis Decreased urine stream Slowing of urinary stream Bilateral flank pain Abdominal pain, unspecified site [facility]* Diagnosis Cough, unspecified type documented in this encounter [facility] for referral (narrative)* Diagnostic Procedure Only (Urgent) - Authorized Specialty Diagnoses / Procedures Referred By Contac t Referred To Contact US IMAGING Diagnoses Decreased urine stream Bilateral flank pain Procedures US KIDNEY/BLADDER US RETROPERITONEAL REAL TIME W/IMAGE COMPLETE Silas Lewis APRN.CNP [address] [place] [address] Us Imaging Referral ID Status Reason Start Date Expiration Date Visits Requested Visits Authorized [id number] Authorized Auto-Generat ed Referral 04/04/2023 1 1 [facility] for referral (narrative)* Diagnostic Procedure Only (Routine) - Pending Review Specialty Diagnoses / Procedures Referred By Yvan t Referred To Contact BR IMAGING Diagnoses Encounter for screening mammogram for breast cancer Procedures AUGIE SCREENING SCREENING MAMMOGRAPHY BI 2-VIEW BREAST INC CAD Daniel Chun MD [address] [place] [address] Br Imaging [address] [place] [address] Referral ID Status Reason Start Date Expiration Date Visits Requested Visits Authorized [id number] Pending Review Auto-Generat ed Referral 08/20/2022 09/19/2023 1 1 [facility] for referral (narrative)* Diagnostic Procedure Only (Routine) - Closed Specialty Diagnoses / Procedures Referred By Contac t Referred To Contact XR IMAGING Diagnoses Acute pain of right knee Procedures XR KNEE LIMITED 2V AP/LAT RIGHT RADIOLOGIC EXAMINATION KNEE 1/2 VIEWS Silas Lewis APRN.GENERAL ASSISTANT [address] [place] [address] [place] [address] Referral ID Status Reason Start Date Expiration Date V isits Requested Visits Authorized [id number] Closed Auto-Generate d Referral 12/11/2022 01/10/2024 1 1 [facility] for referral (narrative)* Outpatient Procedure (Routine) - Authorized Specialty Diagnoses / Procedures Referred By Contac t Referred To [facility] Diagnoses Moderate persistent asthma with acute exacerbation Procedures NITRIC OXIDE, EXHALED NITRIC OXIDE GAS DETERMINATION Silas Lewis APRN.CNP [address] [place] [address] [address] Referral ID Status Reason Start Date Expiration Date Visits Requested Visits Authorized [id number] Authorized Auto-Generat ed Referral 12/24/2022 01/23/2024 1 1 * Outpatient Procedure (Routine) - Pending Review Specialty Diagnoses / [facility] Diagnoses Moderate persistent asthma with acute exacerbation Procedures LUNG VOLUMES Silas Lewis APRN.CNP [address] [place] [address] [address] Referral ID Status Reason Start Date Expiration Date Visits Requested Visits Authorized [id number] Pending Review Auto-Generat ed Referral 12/24/2022 01/23/2024 1 1 * Outpatient Procedure (Routine) - Authorized Specialty Diagnoses / Procedures [facility] Diagnoses Moderate persistent asthma with acute exacerbation Procedures SPIROMETRY - BASELINE AND POST DILATOR BRNCDILAT RSPSE SPMTRY PRE&POST-BRNCDILAT ADMN Silas Lewis APRN.CNP [address] [place] [address] [address] Referral ID Status Reason Start Date Expiration Date Visits Requested Visits Authorized [id number] Authorized Auto-Generat ed Referral 12/24/2022 01/23/2024 1 1 [facility] for referral (narrative)* Diagnostic Procedure Only (Routine) - Authorized Specialty Diagnoses / Procedures Referred By Contac t Referred To Contact XR IMAGING Diagnoses Back pain, unspecified back location, unspecified back pain laterality, unspecified chronicity Curvature of spine Procedures XR SCOLIOSIS PA STAND/LAT 2V RADEX ENTIR THRC LMBR CRV SAC SPI W/SKULL 2/3 Daniel Paredes MD [address] [place] [address] [place] [address] Referral ID Status Reason Start Date Expiration Date Visits Requested Visits Authorized [id number] Authorized Auto-Generat ed Referral 02/29/2024 1 1 [facility] for referral (narrative)* Diagnostic Procedure Only (Routine) - Closed Specialty Diagnoses / Procedures Referred By Contac t Referred To Contact XR IMAGING Diagnoses Back pain, unspecified back location, unspecified back pain laterality, unspecified chronicity Curvature of spine Procedures XR SCOLIOSIS PA STAND/LAT 2V RADEX ENTIR THRC LMBR CRV SAC SPI W/SKULL 2/3 Daniel Paredes MD [address] [place] [address] [place] [address] Referral ID Status Reason Start Date Expiration Date V isits Requested Visits Authorized [id number] Closed Auto-Generate d Referral 01/30/2023 02/29/2024 1 1 [facility] for referral (narrative)* Diagnostic Procedure Only (Urgent) - Closed Specialty Diagnoses / Procedures Referred By Contac t Referred To Contact US IMAGING Diagnoses Decreased urine stream Bilateral flank pain Procedures US KIDNEY/BLADDER US RETROPERITONEAL REAL TIME W/IMAGE COMPLETE Silas Lewis, LAZARO.GENERAL ASSISTANT [address] [place] [address] [place] [address] Referral ID Status Reason Start Date Expiration Date V isits Requested Visits Authorized [id number] Closed Auto-Generate d Referral 03/05/2022 04/04/2023 1 1 [facility] for visit Narrative* Diagnostic Procedure Only (Routine) - Closed Specialty Diagnoses / Procedures Referred By Contac t Referred To Contact XR IMAGING Diagnoses Back pain, unspecified back location, unspecified back pain laterality, unspecified chronicity Curvature of spine Procedures XR SCOLIOSIS PA STAND/LAT 2V RADEX ENTIR THRC LMBR CRV SAC SPI W/SKULL 2/3 VW Daniel Chun MD [address] [place] [address] [place] [address] Referral ID Status Reason Start Date Expiration Date V isits Requested Visits Authorized [id number] Closed Auto-Generate d Referral 01/30/2023 02/29/2024 1 1 [facility] for visit Narrative* Diagnostic Procedure Only (Urgent) - Closed Specialty Diagnoses / Procedures Referred By Contac t Referred To Contact US IMAGING Diagnoses Decreased urine stream Bilateral flank pain Procedures US KIDNEY/BLADDER US RETROPERITONEAL REAL TIME W/IMAGE COMPLETE Silas Lewis, LAZARO.GENERAL ASSISTANT [address] [place] [address] [place] [address] Referral ID Status Reason Start Date Expiration Date V isits Requested Visits Authorized [id number] Closed Auto-Generate d Referral 03/05/2022 04/04/2023 1 1 [facility] Summary Purpose Family History No Family History Records FoundNo Family History Records FoundNo Family History Records Found Advance Directives No Advanced Directives Records FoundNo Advanced Directives Records FoundNo Advanced Directives Records Found Reason for Referral Specialty Diagnoses / Procedures Referred By Contac t Referred To Contact Dermatology Diagnoses Skin lesion Procedures CONSULT TO DERMATOLOGY Daniel Chun MD [address] [place] [address] Referral ID Status Reason Start Date Expiration Date Visits Requested Visits Authorized [id number] Ref Not Required PCP Requested Referral 12/10/2021 12/10/2022 1 1 Specialty Diagnoses / Procedures Referred By Contac t Referred To Contact CT IMAGING Diagnoses Decreased urine stream Calcium oxalate crystals in urine Bilateral flank pain Procedures CT FLANK WO IVCON CT ABD & PELVIS W/O CONTRAST Coyner, Wilmar J, LAZARO.GENERAL ASSISTANT [address] [place] [address] Ct Imaging Referral ID Status Reason Start Date Expiration Date Visits Requested Visits Authorized [id number] Authorized Auto-Generat ed Referral 05/07/2022 06/06/2023 1 1 Specialty Diagnoses / Procedures Referred By Contac t Referred To Contact CT IMAGING Diagnoses Decreased urine stream Calcium oxalate crystals in urine Bilateral flank pain Procedures CT FLANK WO IVCON CT ABD & PELVIS W/O CONTRAST Wilmar Polanco, LAZARO.GENERAL ASSISTANT [address] [place] [address] [place] [address] Referral ID Status Reason Start Date Expiration Date V isits Requested Visits Authorized [id number] Closed Auto-Generate d Referral 05/07/2022 06/06/2023 1 1 Additional Source Comments INFORMATION SOURCE (unrecogn ized section and content) DATE CREATED AUTHOR AUTHOR'S ORGANIZ ATION 06/01/2019 [facility] ([place]) DATE CREATED AUTHOR AUTHOR'S ORGANIZ ATION 05/03/2023 [facility] Source Comments (unrecognize d section and content) In the event this informatio n is protected by the Federal Confidentiality of Alcohol and Drug Abuse Patient Records regulations: The Federal rules restrict any use of the information to criminally investigate or prosecute any alcohol or drug abuse patient.[facility] the event this information is protected by the Federal Confidentiality of Alcohol and Drug Abuse Patient Records regulations: The Federal rules restrict any use of the information to criminally investigate or prosecute any alcohol or drug abuse patient.[facility] the event this information is protected by the Federal Confidentiality of Alcohol and Drug Abuse Patient Records regulations: The Federal rules restrict any use of the information to criminally investigate or prosecute any alcohol or drug abuse patient.[facility] the event this information is protected by the Federal Confidentiality of Alcohol and Drug Abuse Patient Records regulations: The Federal rules restrict any use of the information to criminally investigate or prosecute any alcohol or drug abuse patient.[facility] the event this information is protected by the Federal Confidentiality of Alcohol and Drug Abuse Patient Records regulations: The Federal rules restrict any use of the information to criminally investigate or prosecute any alcohol or drug abuse patient.[facility] the event this information is protected by the Federal Confidentiality of Alcohol and Drug Abuse Patient Records regulations: The Federal rules restrict any use of the information to criminally investigate or prosecute any alcohol or drug abuse patient.[facility] the event this information is protected by the Federal Confidentiality of Alcohol and Drug Abuse Patient Records regulations: The Federal rules restrict any use of the information to criminally investigate or prosecute any alcohol or drug abuse patient.[facility] the event this information is protected by the Federal Confidentiality of Alcohol and Drug Abuse Patient Records regulations: The Federal rules restrict any use of the information to criminally investigate or prosecute any alcohol or drug abuse patient.[facility] the event this information is protected by the Federal Confidentiality of Alcohol and Drug Abuse Patient Records regulations: The Federal rules restrict any use of the information to criminally investigate or prosecute any alcohol or drug abuse patient.[facility] the event this information is protected by the Federal Confidentiality of Alcohol and Drug Abuse Patient Records regulations: The Federal rules restrict any use of the information to criminally investigate or prosecute any alcohol or drug abuse patient.[facility] Hospital[facility] the event this information is protected by the Federal Confidentiality of Alcohol and Drug Abuse Patient Records regulations: The Federal rules restrict any use of the information to criminally investigate or prosecute any alcohol or drug abuse patient.[facility] the event this information is protected by the Federal Confidentiality of Alcohol and Drug Abuse Patient Records regulations: The Federal rules restrict any use of the information to criminally investigate or prosecute any alcohol or drug abuse patient.[facility] Hospital[facility] the event this information is protected by the Federal Confidentiality of Alcohol and Drug Abuse Patient Records regulations: The Federal rules restrict any use of the information to criminally investigate or prosecute any alcohol or drug abuse patient.[facility] Hospital[facility] the event this information is protected by the Federal Confidentiality of Alcohol and Drug Abuse Patient Records regulations: The Federal rules restrict any use of the information to criminally investigate or prosecute any alcohol or drug abuse patient.[facility] HospitalIn the event this information is protected by the Federal Confidentiality of Alcohol and Drug Abuse Patient Records regulations: The Federal rules restrict any use of the information to criminally investigate or prosecute any alcohol or drug abuse patient.[facility] HospitalIn the event this information is protected by the Federal Confidentiality of Alcohol and Drug Abuse Patient Records regulations: The Federal rules restrict any use of the information to criminally investigate or prosecute any alcohol or drug abuse patient.[facility] Hospital[facility] the event this information is protected by the Federal Confidentiality of Alcohol and Drug Abuse Patient Records regulations: The Federal rules restrict any use of the information to criminally investigate or prosecute any alcohol or drug abuse patient.[facility] Hospital[facility] the event this information is protected by the Federal Confidentiality of Alcohol and Drug Abuse Patient Records regulations: The Federal rules restrict any use of the information to criminally investigate or prosecute any alcohol or drug abuse patient.[facility]In the event this information is protected by the Federal Confidentiality of Alcohol and Drug Abuse Patient Records regulations: The Federal rules restrict any use of the information to criminally investigate or prosecute any alcohol or drug abuse patient.[facility] HospitalIn the event this information is protected by the Federal Confidentiality of Alcohol and Drug Abuse Patient Records regulations: The Federal rules restrict any use of the information to criminally investigate or prosecute any alcohol or drug abuse patient.[facility] the event this information is protected by the Federal Confidentiality of Alcohol and Drug Abuse Patient Records regulations: The Federal rules restrict any use of the information to criminally investigate or prosecute any alcohol or drug abuse patient.[facility] Hospital[facility] the event this information is protected by the Federal Confidentiality of Alcohol and Drug Abuse Patient Records regulations: The Federal rules restrict any use of the information to criminally investigate or prosecute any alcohol or drug abuse patient.[facility] Hospital[facility] the event this information is protected by the Federal Confidentiality of Alcohol and Drug Abuse Patient Records regulations: The Federal rules restrict any use of the information to criminally investigate or prosecute any alcohol or drug abuse patient.[facility] HospitalIn the event this information is protected by the Federal Confidentiality of Alcohol and Drug Abuse Patient Records regulations: The Federal rules restrict any use of the information to criminally investigate or prosecute any alcohol or drug abuse patient.[facility] HospitalIn the event this information is protected by the Federal Confidentiality of Alcohol and Drug Abuse Patient Records regulations: The Federal rules restrict any use of the information to criminally investigate or prosecute any alcohol or drug abuse patient.[facility] HospitalIn the event this information is protected by the Federal Confidentiality of Alcohol and Drug Abuse Patient Records regulations: The Federal rules restrict any use of the information to criminally investigate or prosecute any alcohol or drug abuse patient.[facility] HospitalIn the event this information is protected by the Federal Confidentiality of Alcohol and Drug Abuse Patient Records regulations: The Federal rules restrict any use of the information to criminally investigate or prosecute any alcohol or drug abuse patient.[facility] HospitalIn the event this information is protected by the Federal Confidentiality of Alcohol and Drug Abuse Patient Records regulations: The Federal rules restrict any use of the information to criminally investigate or prosecute any alcohol or drug abuse patient.[facility] HospitalIn the event this information is protected by the Federal Confidentiality of Alcohol and Drug Abuse Patient Records regulations: The Federal rules restrict any use of the information to criminally investigate or prosecute any alcohol or drug abuse patient.[facility] the event this information is protected by the Federal Confidentiality of Alcohol and Drug Abuse Patient Records regulations: The Federal rules restrict any use of the information to criminally investigate or prosecute any alcohol or drug abuse patient.[facility]In the event this information is protected by the Federal Confidentiality of Alcohol and Drug Abuse Patient Records regulations: The Federal rules restrict any use of the information to criminally investigate or prosecute any alcohol or drug abuse patient.[facility]In the event this information is protected by the Federal Confidentiality of Alcohol and Drug Abuse Patient Records regulations: The Federal rules restrict any use of the information to criminally investigate or prosecute any alcohol or drug abuse patient.[facility] HospitalIn the event this information is protected by the Federal Confidentiality of Alcohol and Drug Abuse Patient Records regulations: The Federal rules restrict any use of the information to criminally investigate or prosecute any alcohol or drug abuse patient.[facility]In the event this information is protected by the Federal Confidentiality of Alcohol and Drug Abuse Patient Records regulations: The Federal rules restrict any use of the information to criminally investigate or prosecute any alcohol or drug abuse patient.[facility]In the event this information is protected by the Federal Confidentiality of Alcohol and Drug Abuse Patient Records regulations: The Federal rules restrict any use of the information to criminally investigate or prosecute any alcohol or drug abuse patient.[facility] HospitalIn the event this information is protected by the Federal Confidentiality of Alcohol and Drug Abuse Patient Records regulations: The Federal rules restrict any use of the information to criminally investigate or prosecute any alcohol or drug abuse patient.[facility] HospitalIn the event this information is protected by the Federal Confidentiality of Alcohol and Drug Abuse Patient Records regulations: The Federal rules restrict any use of the information to criminally investigate or prosecute any alcohol or drug abuse patient.[facility] HospitalIn the event this information is protected by the Federal Confidentiality of Alcohol and Drug Abuse Patient Records regulations: The Federal rules restrict any use of the information to criminally investigate or prosecute any alcohol or drug abuse patient.[facility] HospitalIn the event this information is protected by the Federal Confidentiality of Alcohol and Drug Abuse Patient Records regulations: The Federal rules restrict any use of the information to criminally investigate or prosecute any alcohol or drug abuse patient.[facility] HospitalIn the event this information is protected by the Federal Confidentiality of Alcohol and Drug Abuse Patient Records regulations: The Federal rules restrict any use of the information to criminally investigate or prosecute any alcohol or drug abuse patient.[facility] HospitalIn the event this information is protected by the Federal Confidentiality of Alcohol and Drug Abuse Patient Records regulations: The Federal rules restrict any use of the information to criminally investigate or prosecute any alcohol or drug abuse patient.[facility] HospitalIn the event this information is protected by the Federal Confidentiality of Alcohol and Drug Abuse Patient Records regulations: The Federal rules restrict any use of the information to criminally investigate or prosecute any alcohol or drug abuse patient.[facility] Reason for Visit (unrecogniz ed section and content) Reason Comments Physical Reason Onset Date Comments Medication Question 12/10/2021 Reason Comments Patient Question Reason Comments Patient Question Reason Comments Patient Update Reason Comments Acute Visit no voiding Reason Comments Results US, Labs, UA Reason Comments Nasal Congestion Reason Comments Acute Visit cough, brown sputum, congestion Reason Comments Results Reason Comments Results Covid/Flu Reason Comments Vaginal Bleeding Reason Comments Established Patient Decreased urinary fl ow Specialty Diagnoses / Procedures Referred By Contac t Referred To Contact Urology Diagnoses Decreased urine stream Procedures CONSULT TO UROLOGY OFFICE/OUTPATIENT NEW HIGH MDM 60-74 MINUTES Silas Lewis, ORIENTAL RUG STRETCHER.GENERAL ASSISTANT [address] [place] [address] Referral ID Status Reason Start Date Expiration Date V isits Requested Visits Authorized [id number] Closed PCP Requested Referral 03/19/2022 03/19/2023 1 1 Reason Comments Patient Update Reason Comments Acute Visit ?bronchitis Reason Comments albuterol PA Reason Onset Date Comments Refill Request 06/04/2022 Reason Comments Chest Congestion cough, sinus pressur e x 1 week Reason Comments Chest Pain Reason Comments URI X 1 week Reason Comments Cough Reason Comments cough persisting/cheset congestion Reason Comments Diarrhea Reason Comments Cough Reason Comments Results Xray Results Reason Comments Physical Reason Comments Results Labs Reason Comments Mother requesting tests Reason Comments back issue Reason Comments Radiology CT Specialty Diagnoses / Procedures Referred By Yvan t Referred To Contact CT IMAGING Diagnoses Decreased urine stream Calcium oxalate crystals in urine Bilateral flank pain Procedures CT FLANK WO IVCON CT ABD & PELVIS W/O CONTRAST Wilmar Polanco, ORIENTAL RUG STRETCHER.GENERAL ASSISTANT [address] [place] [address] [place] [address] Referral ID Status Reason Start Date Expiration Date V isits Requested Visits Authorized [id number] Closed Auto-Generate d Referral 05/07/2022 06/06/2023 1 1 Reason Comments Patient Update Mother concerned as pt does not want to do any ADL's, has questions about trying to get guardianship Reason Onset Date Comments Refill Request 03/24/2023 Care Teams (unrecognized sec tion and content) Towel Inspector Relationship Specialty Start Date End Date Daniel Chun MD [address] [place] [address] PCP - General Family Practice 04/23/17 Towel Inspector Relationship Specialty Start Date End Date Daniel Chun MD [address] [place] [address] PCP - General Family Practice 04/23/17 Towel Inspector Relationship Specialty Start Date End Date Daniel Chun MD [address] [place] [address] PCP - General Family Practice 04/23/17 Towel Inspector Relationship Specialty Start Date End Date Daniel Chun MD [address] [place] [address] PCP - General Family Practice 04/23/17 Towel Inspector Relationship Specialty Start Date End Date Daniel Chun MD [address] [place] [address] PCP - General Family Medicine 04/23/17 Towel Inspector Relationship Specialty Start Date End Date Daniel Chun MD [address] [place] [address] PCP - General Family Medicine 04/23/17 Towel Inspector Relationship Specialty Start Date End Date Daniel Chun MD [address] [place] [address] PCP - General Family Medicine 04/23/17 Towel Inspector Relationship Specialty Start Date End Date Daniel Chun MD [address] [place] [address] PCP - General Family Medicine 04/23/17 Towel Inspector Relationship Specialty Start Date End Date Daniel Chun MD [address] [place] [address] PCP - General Family Medicine 04/23/17 Towel Inspector Relationship Specialty Start Date End Date Daniel Chun MD [address] [place] [address] PCP - General Family Medicine 04/23/17 Towel Inspector Relationship Specialty Start Date End Date Daniel Chun MD [address] [place] [address] PCP - General Family Medicine 04/23/17 Towel Inspector Relationship Specialty Start Date End Date Daniel Chun MD [address] [place] [address] PCP - General Family Medicine 04/23/17 Towel Inspector Relationship Specialty Start Date End Date Daniel Chun MD [address] [place] [address] PCP - General Family Medicine 04/23/17 Towel Inspector Relationship Specialty Start Date End Date Daniel Chun MD [address] [place] [address] PCP - General Family Medicine 04/23/17 Towel Inspector Relationship Specialty Start Date End Date Daniel Chun MD [address] [place] [address] PCP - General Family Medicine 04/23/17 Towel Inspector Relationship Specialty Start Date End Date Daniel Chun MD [address] [place] [address] PCP - General Family Medicine 04/23/17 Towel Inspector Relationship Specialty Start Date End Date Daniel Chun MD [address] [place] [address] PCP - General Family Medicine 04/23/17 Towel Inspector Relationship Specialty Start Date End Date Daniel Chun MD [address] [place] [address] PCP - General Family Medicine 04/23/17 Towel Inspector Relationship Specialty Start Date End Date Daniel Chun MD [address] [place] [address] PCP - General Family Medicine 04/23/17 Towel Inspector Relationship Specialty Start Date End Date Daniel Chun MD [address] [place] [address] PCP - General Family Medicine 04/23/17 Towel Inspector Relationship Specialty Start Date End Date Daniel Chun MD [address] [place] [address] PCP - General Family Medicine 04/23/17 Towel Inspector Relationship Specialty Start Date End Date Daniel Chun MD [address] [place] [address] PCP - General Family Medicine 04/23/17 Towel Inspector Relationship Specialty Start Date End Date Daniel Chun MD [address] [place] [address] PCP - General Family Medicine 04/23/17 Towel Inspector Relationship Specialty Start Date End Date Daniel Chun MD [address] [place] [address] PCP - General Family Medicine 04/23/17 Towel Inspector Relationship Specialty Start Date End Date Daniel Chun MD [address] [place] [address] PCP - General Family Medicine 04/23/17 Towel Inspector Relationship Specialty Start Date End Date Daniel Chun MD [address] [place] [address] PCP - General Family Medicine 04/23/17 Towel Inspector Relationship Specialty Start Date End Date Daniel Chun MD [address] [place] [address] PCP - General Family Medicine 04/23/17 Towel Inspector Relationship Specialty Start Date End Date Daniel Chun MD [address] [place] [address] PCP - General Family Medicine 04/23/17 Towel Inspector Relationship Specialty Start Date End Date Daniel Chun MD [address] [place] [address] PCP - General Family Medicine 04/23/17 FOR RECORDS PERTAINING TO PATIENTS WHO ARE OR HAVE BEEN ENROLLED IN A CHEMICAL DEPENDENCY/SUBSTANCEABUSE PROGRAM, SOME INFORMATION MAY BE OMITTED. This clinical summary was aggregated from multiple sources. Caution should be exercised in using it in the provision of clinical care. This summary normalizes information from multiple sources, and as a consequence, information in this document may materially change the coding, format and clinical context of patient data. In addition, data may be omitted in some cases. CLINICAL DECISIONS SHOULD BE BASED ON THE PRIMARY CLINICAL RECORDS. [facility]. provides no warranty or guarantee of the accuracy or completeness of information in this document.
--- NOTE | 2023-05-14 17:26 | ED.RN ---
MOTHER CALLED FOR UPDATE. STATES SHE WAS SUPPOSED TO F/U WITH A SPECIALIST THAT DR LEMUS REFERRED HER TO BUT SHE GOT CONFUSED AND HAD OLDER SISTER DROP HER OFF TO SEE [facility]. PT WAS FOUND SITTING IN THEIR WAITING ROOM, DIDNT HAVE APPT THERE. TOLD THEM SHE HAVING CP AND WAS SENT HERE. MOTHER STATES CALL HER WHEN SHE IS DONT GETTING TESTS AND SHE WILL GET HER A RIDE HOME. MOTHER TIFFANY NUMBER [phone]
[2023-05-14 17:28] VITALS: PULSE 65; RESP 16; O2SAT 99
[2023-05-14 17:50] LABS: Reflex Troponin-HS? (from REC) Y
[2023-05-14 18:19] LABS: Troponin-I HS 4 pg/mL (3.0-54.0)
== END 2023-05-14 18:52 | disposition home or self-care (01) ==
PROVIDERS: Emergency Provider Emergency Medicine; PCP Family Medicine; Visit Provider Emergency Medicine
DX: J06.9 Acute upper respiratory infection, unspecified (principal); R07.9 Chest pain, unspecified; E66.9 Obesity, unspecified
CPT/HCPCS: 71045; 80048; 84484; 85025; 85379; 87631; 93005; 96374; 99284; J7030; A4216

== ENCOUNTER → 2023-06-05 | Outpatient (CLI) | payer MEDICARE, MEDICAID, SELFPAY ==
--- OUTSIDE RECORDS SUMMARY | 2023-06-05 12:52 | XMS RPT_ITS | CCD ---
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 Name Role Phone Daniel Chun MD Primary Care Provider [phone] DANIEL CHUN Referring Unavailable DANIEL CHUN Primary Care Unavailable DANIEL CHUN Attending Unavailable DANIEL CHUN Primary Care Unavailable DANIEL CHUN Primary Care Unavailable DANIEL CHUN Primary Care Unavailable SILAS LEWIS Attending Unavailable SILAS LEWIS Referring Unavailable DANIEL CHUN Primary Care Unavailable SILAS LEWIS Referring Unavailable DANIEL CHUN Primary Care Unavailable DANIEL CHUN Primary Care Unavailable SILAS LEWIS Attending Unavailable DANIEL CHUN Primary Care Unavailable DANIEL CHUN Referring Unavailable DANIEL CHUN Primary Care Unavailable DANIEL CHUN Attending Unavailable JESS JAMES Attending Unavailable DANIEL CHUN Primary Care Unavailable DANIEL CHUN Primary Care Unavailable DANIEL CHUN Primary Care Unavailable SILAS LEWIS Attending Unavailable JESS JAMES Attending Unavailable DANIEL CHUN Primary Care Unavailable Allergies Allergy Classification Reported Allergen(s) Allergy Type Date of Onset Reaction(s) Facility (20 sources) Acetaminophen / Dextromethorphan / guaiFENesin / Pseudoephedrine; Translations: [[id number] TAMINOPHEN] Drug Allergy 09-28-19 13 Other: See Comments [facility] Work Phone: (20 sources) Azithromycin; Translations: [AZITHROMYCIN] Drug Allergy 10-28-19 13 GI Upset [facility] Work Phone: (20 sources) Cephalexin; Translations: [CEPHALEXIN] Drug Allergy 12-31-19 05 Intolerance [facility] Work Phone: (20 sources) Dextromethorphan / guaiFENesin; Translations: [DEXTROMETHORPHAN- AIFENESIN] Drug Allergy 02-13-20 09 Intolerance [facility] (20 sources) Doxycycline; Translations: [DOXYCYCLINE] Drug Allergy 07-23-19 09 GI Upset [facility] (20 sources) Latex; Translations: [LATEX] Propensity to adverse reactions 08-22-19 06 Rash [facility] Work Phone: (20 sources) Oseltamivir; Translations: [OSELTAMIVIR PHOSPHATE] Drug Allergy 05-17-19 13 Other: See Comments [facility] Work Phone: (20 sources) risperiDONE; Translations: [RISPERIDONE] Drug Allergy 09-29-19 13 Other: See Comments [facility] Work Phone: (20 sources) [employer]; Translations: [STRAWBERRIES] Food Allergy 11-11-19 17 Hives [facility] Work Phone: (20 sources) topiramate; Translations: [TOPIRAMATE] Drug Allergy 06-04-19 13 Other: See Comments [facility] Work Phone: (20 sources) valdecoxib; Translations: [VALDECOXIB] Drug Allergy 12-31-19 05 [facility] Medications Current Medications Medication Drug Class(es) Dates Sig (Normalized) Sig (Original) [id number] 200 actuat albuterol 0.09 mg/actuat metered dose inhaler (20 sources) beta2-Adrenergic Agonist Start: 03-20-2023 End: 06-26-2023 take 2 puff(s) by inhalation every four hours as needed for wheezing albuterol HFA (VENTOLIN HFA) 90 mcg/actuation inhaler Indications: Moderate persistent asthma with acute exacerbation Inhale 2 Puffs as instructed every 4 hours as needed for wheezing/shortness of breath. 1 Each 4 05/27/2023 06/26/2023 Active Completed/Discontinued Medications Medication Drug Class(es) Dates [...] Problem Classification Problem Date Documented Date Episodic/Chronic Abdominal pain (4 sources) Flank pain; Translations: [Unspecified abdominal pain] Episodic Adjustment disorders (20 sources) Adjustment disorder with [...] Translations: [Deforming dorsopathy, unspecified] 01-30-2023 Episodic Other and unspecified benign neoplasm (1 [...] 2 12-30-2011 Chronic Other lower respiratory disease (10 sources) Cough; Translations: [Cough] Episodic Other lower [...] [Obesity, Class III, BMI 40-49.9 (morbid obesity) (HCC)] Onset: 9 Chronic Other skin disorders (1 source) Skin lesion; Translations: [Disorder of the skin and subcutaneous tissue, unspecified] Episodic Other upper respiratory disease (1 source) Nasal congestion; Translations: [Nasal congestion] Episodic Other upper respiratory disease (3 sources) Nasal discharge; Translations: [Other specified disorders of nose and nasal sinuses] Episodic Other upper respiratory disease (1 source) Congestion of nasal sinus; Translations: [Nasal congestion] 12-11-2022 Episodic Other upper respiratory infections (9 sources) Chronic sinusitis; Translations: [Chronic sinusitis, unspecified] Chronic Other upper respiratory infections (2 sources) Acute upper respiratory infection; Translations: [Acute upper respiratory infection, unspecified] Episodic Otitis media and related conditions (2 sources) Acute suppurative otitis media without spontaneous rupture of ear drum; Translations: [Acute suppurative otitis media without spontaneous rupture of ear drum, right ear] Onset: 4 05-27-2023 Episodic Schizophrenia and other psychotic disorders (20 sources) Delusional disorder; Translations: [Delusional disorders] Onset: 7 11-10-2016 Chronic Unclassified (1 source) Cough, unspecified type; Translations: [Cough, unspecified type] Onset: Viral infection (1 source) Viral disease; Translations: [Viral infection, unspecified] Episodic Past or Other Problems Problem Classification Problem Date Documented Da te Episodic/Chronic Diabetes mellitus without complication (2 sources) Increased glucose level; Translations: [Other abnormal glucose] Onset: 09-18-2022 Episodic Genitourinary symptoms and ill-defined conditions (9 sources) Dysuria; Translations: [Dysuria] Onset: 12-11-2022 Episodic Mycoses (2 sources) Candidiasis of skin; Translations: [Candidiasis of skin and nail] Onset: 12-24-2022 12-24-2022 Episodic Other acquired deformities (1 source) Deforming dorsopathy, unspecified; Translations: [Curvature of spine] Onset: 02-02-2023 Episodic Other and unspecified benign neoplasm (1 source) Hemangioma of skin and subcutaneous tissue; Translations: [Hemangioma of skin] Onset: 12-24-2022 Episodic Other lower respiratory disease (2 sources) Chronic cough; Translations: [Chronic cough] Onset: 12-24-2022 12-24-2022 Episodic Other non-traumatic joint disorders (3 sources) Pain in right knee; Translations: [Pain in joint, lower leg] Onset: 12-11-2022 12-11-2022 Episodic Other screening for suspected conditions (not mental disorders or infectious disease) (5 sources) Patient encounter status; Translations: [Encounter for screening mammogram for malignant neoplasm of breast] Onset: 12-24-2022 Episodic Other skin disorders (20 sources) Hirsutism; Translations: [Hirsutism] Onset: 10-03-2011 10-03-2011 Episodic Spondylosis; intervertebral disc disorders; other back problems (20 sources) Low back pain; Translations: [Low back pain] Onset: 05-11-2013 05-11-2013 Episodic Sprains and strains (20 sources) Sprain of knee; Translations: [Sprain of other specified parts of right knee, sequela] Onset: 07-16-2017 07-16-2017 Episodic Results Test Name Value Interpretation Reference Range Facil ity Vital Signs Date Time Vital Sign Value Performing Clinician Faci lity 05-27-2023 09:40-0500 Body temperature 98.4 [degF] Silas Tannhof [employer] Work Phone: [facility] 05-27-2023 09:40-0500 Body weight 151.05 kg Silas Emmahof [employer] Work Phone: [facility] 05-27-2023 09:40-0500 Diastolic blood pressure 80 mm[Hg] Silas Tannhof [employer] Work Phone: [facility] 05-27-2023 09:40-0500 Heart rate 93 /min Silas Tannhof [employer] Work Phone: [facility] 05-27-2023 09:40-0500 Respiratory rate 20 /min Silas Emmahof [employer] Work Phone: [facility] 05-27-2023 09:40-0500 SaO2% (BldA) [Mass fraction] 98 % Silasjose Carterhof [employer] Work Phone: [facility] 05-27-2023 09:40-0500 Systolic blood pressure 126 mm[Hg] Silas Tannhof [employer] Work Phone: [facility] 01-30-2023 14:53-0400 Diastolic blood pressure 82 mm[Hg] Daniel Chun MD Work Phone: [facility] 01-30-2023 14:53-0400 Heart rate 82 /min Daniel Chun MD Work Phone: [facility] 01-30-2023 14:53-0400 Respiratory rate 18 /min Daniel Chun MD Work Phone: [facility] 01-30-2023 14:53-0400 Systolic blood pressure 118 mm[Hg] Daniel Chun MD Work Phone: [facility] 12-24-2022 11:28-0400 Body height 159 cm Silas Carterhof [employer] Work Phone: [facility] 12-24-2022 11:28-0400 Body weight 151.05 kg Silas Tannhof [employer] Work Phone: [facility] 12-24-2022 11:28-0400 Diastolic blood pressure 72 mm[Hg] Silas Tannhof [employer] Work Phone: [facility] 12-24-2022 11:28-0400 Heart rate 78 /min Silas Tannhof [employer] Work Phone: [facility] 12-24-2022 11:28-0400 Respiratory rate 20 /min Silas Tannhof [employer] Work Phone: [facility] 12-24-2022 11:28-0400 SaO2% (BldA) [Mass fraction] 97 % Silas Tannhof [employer] Work Phone: [facility] 12-24-2022 11:28-0400 Systolic blood pressure 120 mm[Hg] Silas Tannhof [employer] Work Phone: [facility] 12-11-2022 14:05-0400 Body temperature 98.71 [degF] Silas Tannhof [employer] Work Phone: [facility] 12-11-2022 14:05-0400 Body weight 150.59 kg Silas Tannhof [employer] Work Phone: [facility] 12-11-2022 14:05-0400 Diastolic blood pressure 74 mm[Hg] Silas Tannhof [employer] Work Phone: [facility] 12-11-2022 14:05-0400 Heart rate 78 /min Silas Tannhof [employer] Work Phone: [facility] 12-11-2022 14:05-0400 Respiratory rate 22 /min Silas Tannhof [employer] Work Phone: [facility] 12-11-2022 14:05-0400 Systolic blood pressure 116 mm[Hg] Silas Tannhof [employer] Work Phone: [facility] 09-18-2022 16:35-0400 Body temperature 97.9 [degF] Daniel Chun MD Work Phone: [facility] 09-18-2022 16:35-0400 Body weight 151.32 kg Daniel Chun MD Work Phone: [facility] 09-18-2022 16:35-0400 Diastolic blood pressure 88 mm[Hg] Daniel Chun MD Work Phone: [facility] 09-18-2022 16:35-0400 Heart rate 96 /min Daniel Chun MD Work Phone: [facility] 09-18-2022 16:35-0400 Respiratory rate 20 /min Daniel Chun MD Work Phone: [facility] 09-18-2022 16:35-0400 SaO2% (BldA) [Mass fraction] 97 % Daniel Chun MD Work Phone: [facility] 09-18-2022 16:35-0400 Systolic blood pressure 128 mm[Hg] Daniel Chun MD Work Phone: [facility] 07-29-2022 13:58-0400 Body temperature 98.71 [degF] Jess Jose [employer] Work Phone: [facility] 07-29-2022 13:58-0400 Body weight 152.41 kg Jess Jose [employer] Work Phone: [facility] 07-29-2022 13:58-0400 Diastolic blood pressure 86 mm[Hg] Jess Jose [employer] Work Phone: [facility] 07-29-2022 13:58-0400 Heart rate 86 /min Jess Jose [employer] Work Phone: [facility] 07-29-2022 13:58-0400 Respiratory rate 20 /min Jess Jose [employer] Work Phone: [facility] 07-29-2022 13:58-0400 SaO2% (BldA) [Mass fraction] 96 % Jess Jose [employer] Work Phone: [facility] 07-29-2022 13:58-0400 Systolic blood pressure 106 mm[Hg] Jess James [employer] Work Phone: [facility] 06-16-2022 11:53-0500 Body temperature 97.9 [degF] Krislyn Aberegg PA Work Phone: [facility] 06-16-2022 11:53-0500 Body weight 154.22 kg Krislyn Aberegg PA Work Phone: [facility] 06-16-2022 11:53-0500 Diastolic blood pressure 72 mm[Hg] Krislyn Aberegg PA Work Phone: [facility] 06-16-2022 11:53-0500 Heart rate 82 /min Krislyn Aberegg PA Work Phone: [facility] 06-16-2022 11:53-0500 Respiratory rate 18 /min Krislyn Aberegg PA Work Phone: [facility] 06-16-2022 11:53-0500 SaO2% (BldA) [Mass fraction] 96 % Krislyn Aberegg PA Work Phone: [facility] 06-16-2022 11:53-0500 Systolic blood pressure 122 mm[Hg] Krislyn Aberegg PA Work Phone: [facility] 05-16-2022 11:48-0500 Body temperature 97.5 [degF] Silas Lewis [employer] Work Phone: [facility] 05-16-2022 11:48-0500 Body weight 151.5 kg Silas Lewis [employer] Work Phone: [facility] 05-16-2022 11:48-0500 Diastolic blood pressure 62 mm[Hg] Silas Carterhof [employer] Work Phone: [facility] 05-16-2022 11:48-0500 Heart rate 90 /min Silas Tannhof [employer] Work Phone: [facility] 05-16-2022 11:48-0500 Respiratory rate 20 /min Silas Tannhof [employer] Work Phone: [facility] 05-16-2022 11:48-0500 SaO2% (BldA) [Mass fraction] 98 % Silas Tannhof [employer] Work Phone: [facility] 05-16-2022 11:48-0500 Systolic blood pressure 120 mm[Hg] Silas Tannhof [employer] Work Phone: [facility] 05-07-2022 14:59-0500 Body height 165.1 cm Mary Coyner [employer] Work Phone: [facility] 05-07-2022 14:59-0500 Body weight 151.96 kg Mary Coyner [employer] Work Phone: [facility] 04-10-2022 14:02-0500 Body temperature 98.91 [degF] Silas Tannhof [employer] Work Phone: [facility] 04-10-2022 14:02-0500 Body weight 151.96 kg Silas Tannhof [employer] Work Phone: [facility] 04-10-2022 14:02-0500 Diastolic blood pressure 80 mm[Hg] Silas Tannhof [employer] Work Phone: [facility] 04-10-2022 14:02-0500 Heart rate 90 /min Silas Tannhof [employer] Work Phone: [facility] 04-10-2022 14:02-0500 Respiratory rate 16 /min Silas Tannhof [employer] Work Phone: [facility] 04-10-2022 14:02-0500 SaO2% (BldA) [Mass fraction] 98 % Silas Tannhof [employer] Work Phone: [facility] 04-10-2022 14:02-0500 Systolic blood pressure 110 mm[Hg] Silas Tannhof [employer] Work Phone: [facility] 03-05-2022 14:32-0500 Body weight 151.05 kg Silas Tannhof [employer] Work Phone: [facility] 03-05-2022 14:32-0500 Diastolic blood pressure 88 mm[Hg] Silas Tannhof [employer] Work Phone: [facility] 03-05-2022 14:32-0500 Heart rate 88 /min Silas Tannhof [employer] Work Phone: [facility] 03-05-2022 14:32-0500 Respiratory rate 20 /min Silas Tannhof [employer] Work Phone: [facility] 03-05-2022 14:32-0500 SaO2% (BldA) [Mass fraction] 98 % Silas Tannhof [employer] Work Phone: [facility] 03-05-2022 14:32-0500 Systolic blood pressure 120 mm[Hg] Silas Tannhof [employer] Work Phone: [facility] 12-09-2021 14:30-0400 Body temperature 97.81 [degF] Daniel Chun MD Work Phone: [facility] 12-09-2021 14:30-0400 Body weight 153.91 kg Daniel Chun MD Work Phone: [facility] 12-09-2021 14:30-0400 Diastolic blood pressure 70 mm[Hg] Daniel Chun MD Work Phone: [facility] 12-09-2021 14:30-0400 Heart rate 80 /min Daniel Chun MD Work Phone: [facility] 12-09-2021 14:30-0400 Respiratory rate 18 /min Daniel Chun MD Work Phone: [facility] 12-09-2021 14:30-0400 Systolic blood pressure 118 mm[Hg] Daniel Chun MD Work Phone: [facility] Encounters Encounter Date Encounter Type Care Provider Facility Start: 05-27-2023 End: 05-28-2023 ambulatory DANIEL CHUN Facility:[facility] Start: 05-27-2023 End: 05-27-2023 Patient encounter procedure Silas Lewis [employer] Work Phone: [facility] Procedures Date Procedure Procedure Detail Performing Clinician Start: 02-02-2023 Radex entir thrc lmb r crv sac spi w/skull 2/3 vw Daniel Chun MD Work Phone: Start: 07-29-2022 COVID WITH FLUA+B, ROUTINE Jess Jose [employer] Work Phone: Start: 05-13-2022 Ct abdomen & pelvis w/o contrast material Mary Polanco [employer] Work Phone: Start: 04-10-2022 COVID WITH FLUA+B, ROUTINE Silas Lewis [employer] Work Phone: Start: 03-07-2022 Us retroperitoneal r eal time w/image complete Silas Lewis [employer] Work Phone: Start: 06-03-2018 Adult depression scr eening assessment Silas Lewis [employer] Work Phone: Plan of Treatment Date Care Activity Detail Author Start: 06-03-2028 Urine microalbumin profile [facility] Start: 05-27-2024 Annual PCP Team Industrial Psychology Professor srinivas Disease Visit Annual PCP Team Chronic Disease Visit [facility] Start: 05-01-2024 Annual PCP Team Industrial Psychology Professor srinivas Disease Visit Annual PCP Team Chronic Disease Visit [facility] Start: 01-31-2024 Annual PCP Team Industrial Psychology Professor srinivas Disease Visit Annual PCP Team Chronic Disease Visit [facility] Start: 12-25-2023 ANNUAL PCP TEAM DAYTIME CAREGIVER SRINIVAS DISEASE VISIT ANNUAL PCP TEAM CHRONIC DISEASE VISIT [facility] Start: 12-25-2023 COVID-19 VACCINE (#1) COVID-19 VACCI NE (#1) [facility] Immunizations Immunization Date Immunization Notes Care Provider Emre duarte 01-03-2019 influenza, injectabl e, quadrivalent, contains preservative Silas Tannhof [employer] Work Phone: [facility] 01-03-2019 influenza virus vaccine, unspecified formulation Daniel Chun MD Work Phone: [facility] 06-03-2018 tetanus toxoid, reduced diphtheria toxoid, and acellular pertussis vaccine, adsorbed Silas Tannhof [employer] Work Phone: [facility] 01-22-2016 influenza, injectabl e, quadrivalent, contains preservative Silas Tannhof [employer] Work Phone: [facility] 03-22-2015 influenza, injectabl e, quadrivalent, contains preservative Silas Tannhof [employer] Work Phone: [facility] 03-22-2015 influenza, seasonal, injectable Silas Tannhof [employer] Work Phone: [facility] Work Phone: 02-21-2014 influenza, seasonal, injectable Silas Tannhof [employer] Work Phone: [facility] 05-11-2013 influenza virus vaccine, unspecified formulation Silas Tannhof [employer] Work Phone: [facility] Payers Date Payer Category Payer Medicaid [facility] MEDICAID [employer] [facility] MEDICAID [id number] 2018-Present [phone] [address] [place] [address] Medicaid [id number] 2018 Medicare [id number] 2018 Medicare [facility] MEDICARE [employer] [facility] MEDICARE [id number] 2018-Present [phone] [address] [place] [address] Medicare [id number] 2018 Medicare [id number] Social History Date Type Detail Facility Start: 12-09-2021 Tobacco smoking stat us HIIS Never smoked tobacco [facility] Work Phone: Start: 03-18-2021 End: 05-27-2023 Alcohol intake Current non-drinker of alcohol (finding) [facility] Start: 1980 Sex Assigned At Not on file [facility] Start: 12-09-2021 Tobacco use and exposure Smokeless tobacco non-user [facility] Start: 11-29-2021 End: 03-05-2022 Exposure to SARS-CoV-2 (event) Not sure [facility] Start: 09-18-2022 End: 12-11-2022 History of Social function [facility] Start: 09-18-2022 End: 12-11-2022 Tobacco use panel [facility] Adult Depression Screening Assessment 0 [facility] Clinical Notes 10-03-2011 to 05-27-2023 Patient InstructionsTanSilas rahman APRN.[employer] - 05/27/2023 9:40 AM ESTTelephone Encounter - Daniel Chun MD - 05/22/2023 4:55 PM ESTTelephone Encounter - Jacki Miller - 05/22/2023 4:40 PM EST Note Date & Type Note Facility 05-27-2023 Note HNO ID: [id number] Author: SILAS LEWIS APRN.[employer] Service: ? Author Type: Nurse Practitioner Type: Progress Notes Filed: 05/27/2023 09:56 Note Text: This is a 42 year old female who presents today with: Patient presents with: Acute Visit: cold and cough HISTORY OF PRESENT ILLNESS: Karen Barrera is a 42 year old female. Patient presents with: Acute Visit: cold and cough Here in the office cough and ear pain . Started 1 week ago. Cough is productive, coughing up green mucus. No wheezing or difficulty breathing. She felt like she had a fever at home. Took Tylenol . Has not tried OTC cold mediation. History of Asthma, taking singulair 10 mg daily and albuterol prn. PAST MEDICAL HISTORY: PAST MEDICAL HISTORY Diagnosis [...] 03/10/2019 STRESS TEST 02/13/2022 ALLERGIES Dayquil Liquicaps [Mdtpaydtr-Be-Fo-Acetaminophen ], Arithromycin [Azithromycin], Doxycycline, Latex, Mucinex Dm [Dextromethorphan-Guaifenesin] , Risperdal [Risperidone], Strawberries, Tamiflu [Oseltamivir Phosphate], Topiramate, Bextra [Valdecoxib], and Cephalexin MEDICATIONS Current Outpatient Medications Medication Sig ibuprofen (MOTRIN) 600 mg tablet Take 1 tablet by mouth every 6 hours as needed for pain. cyclobenzaprine (FLEXERIL) 10 mg tablet Take 1 tablet by mouth three times a day as needed for muscle spasm. cetirizine (ZYRTEC) 10 mg tablet Take 1 tablet by mouth once daily. benzonatate (TESSALON PERLE) 100 mg capsule Take 1 capsule by mouth three times a day as needed. albuterol HFA (VENTOLIN HFA) 90 mcg/actuation inhaler [...] Take 1 tablet by mouth once daily. iloperidone (FANAPT) 4 mg tab Take [...] Father Seizures Father Seizures Brother Heart Sister DC Heart Sister Seizures Sister Young Diabetes Maternal Grandmother Stroke Maternal Grandmother other (hypoglycemia) Maternal Grandfather Social History Tobacco Use Smoking status: Never Smokeless tobacco: Never Substance Use Topics Alcohol use: No Drug use: No REVIEW OF SYSTEMS GENERAL: No weight loss, malaise or fevers/chills HEENT: + Ear Pain NECK: Negative for lumps, goiter, pain and significant neck swelling RESPIRATORY: + Cough CARDIOVASCULAR: Negative for chest pain, leg swelling, [...] depression, anxiety, or suicidal ideation. EXAM: BP 126/80 Pulse 93 Temp 36.9 ?C (98.4 ?F) Resp 20 Wt (!) 151 kg (333 lb) LMP 05/21/2022 (Approximate) SpO2 98% BMI 59.75 kg/m? PHYSICAL EXAM: General Appearance: Well appearing, alert, in no acute distress, well-hydrated, well nourished. Skin: Skin color, texture, turgor normal, no suspicious rashes or lesions. Head: Normocephalic, no masses, lesions, tenderness or abnormalities. Eyes: Anicteric sclera. Pupils are equally round and reactive to light. Extraocular movements are intact. Ears: External ears normal, canals clear, Positive findings: R TM: erythematous. Nose/Sinuses: Maxillary sinus tenderness (more content not included)... [facility] 05-27-2023 Instructions Silas Lewis APRN.[facility] - 05/27/2023 9:49 AM EST Start Augmentin, take with food. May use tessalon perles as needed for cough. Stay well hydrated. May continue with Tylenol as needed for pain. Follow up if no improvement. documented in this encounter [facility] 05-27-2023 History of Presen t illness Narrative This is a 42 year old female who presents today with: Patient presents with: Acute Visit: cold and cough HISTORY OF PRESENT ILLNESS: Karen Barrera is a 42 year old female. Patient presents with: Acute Visit: cold and cough Here in the office cough and ear pain . Started 1 week ago. Cough is productive, coughing up green mucus. No wheezing or difficulty breathing. She felt like she had a fever at home. Took Tylenol . Has not tried OTC cold mediation. History of Asthma, taking singulair 10 mg daily and albuterol prn. PAST MEDICAL HISTORY: PAST MEDICAL HISTORY Diagnosis [...] 03/10/2019 STRESS TEST 02/13/2022 ALLERGIES Dayquil Liquicaps [Hadrkymzy-Fq-Nv-Acetaminophen ], Arithromycin [Azithromycin], Doxycycline, Latex, Mucinex Dm [Dextromethorphan-Guaifenesin] , Risperdal [Risperidone], Strawberries, Tamiflu [Oseltamivir Phosphate], Topiramate, Bextra [Valdecoxib], and Cephalexin MEDICATIONS Current Outpatient Medications Medication Sig ibuprofen (MOTRIN) 600 mg tablet Take 1 tablet by mouth every 6 hours as needed for pain. cyclobenzaprine (FLEXERIL) 10 mg tablet Take 1 tablet by mouth three times a day as needed for muscle spasm. cetirizine (ZYRTEC) 10 mg tablet Take 1 tablet by mouth once daily. benzonatate (TESSALON PERLE) 100 mg capsule Take 1 capsule by mouth three times a day as needed. albuterol HFA (VENTOLIN HFA) 90 mcg/actuation inhaler [...] Take 1 tablet by mouth once daily. iloperidone (FANAPT) 4 mg tab Take [...] Father Seizures Father Seizures Brother Heart Sister DC Heart Sister Seizures Sister Young Diabetes Maternal Grandmother Stroke Maternal Grandmother other (hypoglycemia) Maternal Grandfather Social History Tobacco Use Smoking status: Never Smokeless tobacco: Never Substance Use Topics Alcohol use: No Drug use: No REVIEW OF SYSTEMS GENERAL: No weight loss, malaise or fevers/chills HEENT: + Ear Pain NECK: Negative for lumps, goiter, pain and significant neck swelling RESPIRATORY: + Cough CARDIOVASCULAR: Negative for chest pain, leg swelling, [...] depression, anxiety, or suicidal ideation. EXAM: BP 126/80 Pulse 93 Temp 36.9 C (98.4 F) Resp 20 Wt (!) 151 kg (333 lb) LMP 05/21/2022 (Approximate) SpO2 98% BMI 59.75 kg/m PHYSICAL EXAM: General Appearance: Well appearing, alert, in no acute distress, well-hydrated, well nourished. Skin: Skin color, texture, turgor normal, no suspicious rashes or lesions. Head: Normocephalic, no masses, lesions, tenderness or abnormalities. Eyes: Anicteric sclera. Pupils are equally round and reactive to light. Extraocular movements are intact. Ears: External ears normal, canals clear, Positive findings: R TM: erythematous. Nose/Sinuses: Maxillary sinus tenderness. Oropharynx: Lips, mucosa, and tongue [...] Gait normal. Sensation grossly intact. ASSESSMENT/PLAN: 1. Non-recurrent acute suppurative otitis media of right ear without spontaneous rupture of tympanic membrane - ICD9: 382.00, ICD10: H66.001 (primary diagnosis) - Will begin treatment with Augmentin 875 mg PO BID for 10 days - Supportive care with plenty of fluids, rest, and analgesia prn. - AMOXICILLIN 875 MG-POTASSIUM CLAVULANATE 125 MG TABLET 2. Cough, unspecified type - ICD9: 786.2, ICD10: R05.9 - Refill provided. - BENZONATATE 100 MG CAPSULE 3. Moderate persistent asthma with acute exacerbation - ICD9: 493.92, ICD10: J45.41 - Refill provided. - ALBUTEROL SULFATE HFA 90 MCG/ACTUATION AEROSOL INHALER Follow-up if no improvement. Discussed treatment plan and patient voices understanding. Patient's questions answered appropriately. Medications and potential side effects were discussed and patient voices understanding. Silas Lewis APRN.DIXIE This note was partially generated using Fashfix voice recognition system. Note was reviewed for accuracy. There may be minor misspellings or grammar miscues with [employer] voice recognition. documented in this encounter [facility] 05-22-2023 Miscellaneous Notes Formattin g of this note might be different from the original. OK to refill as ordered Daniel Chun MD Patient has been identified by name and date of : Yes Patient phones for refill(s): Requested Prescriptions Pending Prescriptions Disp Refills ibuprofen (MOTRIN) 600 mg tablet 20 tablet 5 Sig: Take 1 tablet by mouth every 6 hours as needed for pain. cyclobenzaprine (FLEXERIL) 10 mg tablet 30 tablet 2 Sig: Take 1 tablet by mouth three times a day as needed for muscle spasm. cetirizine (ZYRTEC) 10 mg tablet 90 tablet 3 Sig: Take 1 tablet by mouth once daily. Date of last office visit in primary care: 05/01/2023 Date of next office visit in primary care: Visit date not found Please advise. Thank you. Jacki Miller. documented in this encounter [facility] 05-01-2023 Note HNO ID: [id number] Author: JESS JAMES APRN.DIXIE Service: ? Author Type: Nurse Practitioner Type: [...] MG-POTASSIUM CLAVULANATE 125 MG TABLET Jess James APRN.[employer] TE[employer] This note was partly generated using Fashfix voice recognition dictation and may contain some misspelled or inaccurate words missed on review. [facility] 03-24-2023 Miscellaneous Notes Formattin g of this [...] Queta Garcia RN. documented in this encounter [facility] 03-02-2023 Miscellaneous Notes Formattin g of this note might be different from the original. Pt mother and EC Kennedi Barrera notified and voiced understanding. Mariana Gamez Ma I would agree with trying to get her into a psychiatrist for evaluation. She would probably have to find a sales engineer to help her get guardianship. Daniel Chun [...] for the patient? documented in this encounter [facility] 02-09-2023 Miscellaneous Notes Formattin g of this [...] Daniel Chun MD documented in this encounter [facility] 02-02-2023 Note HNO ID: [id number] Author: Karen Gray RT(R) Service: ? Author [...] RT Hannah(R) February 02, 2023 3:42 PM [facility] 02-02-2023 History of Presen t illness Narrative [...] 2023 3:42 PM documented in this encounter [facility] 01-30-2023 Note HNO ID: [id number] Author: Daniel Chun MD Service: ? Author [...] Father Seizures Father Seizures Brother Heart Sister DC Heart Sister Seizures Sister Young Diabetes Maternal [...] clear to auscult (more content not included)... [facility] 01-30-2023 History of Presen t illness Narrative [...] Father Seizures Father Seizures Brother Heart Sister DC Heart Sister Seizures Sister Young Diabetes Maternal [...] Past Histories independently gathered by the clinical support services tech and the remaining scribed note accurately describes [...] Chantel Townsend Ma documented in this encounter [facility] 12-25-2022 Miscellaneous Notes Formattin g of this [...] has any questions. Thank you. Silas Lewis APRN.[employer] documented in this encounter [facility] 12-24-2022 Note HNO ID: [id number] Author: Silas Lewis APRN.DIXIE Service: ? Author Type: Nurse Practitioner Type: [...] capsules twice daily. Following with neurology in [place]. Asthma: Taking albuterol as needed, Zyrtec 10 [...] 03/10/2019 STRESS TEST 02/13/2022 ALLERGIES Dayquil Liquicaps [Nhhktvlwp-If-Dg-Acetaminophen ], Arithromycin [Azithromycin], Doxycycline, Latex, Mucinex Dm [...] Father Seizures Father Seizures Brother Heart Sister DC Heart Sister Seizures Sister Young Diabetes Maternal [...] cold or h (more content not included)... [facility] 12-24-2022 Instructions Silas Lewis APRN.[facility] - 12/24/2022 11:47 AM EDT Get fasting [...] Promotion: - Eat healthy -- go to [employer] to get started - Have a yearly [...] - Wear sunscreen documented in this encounter [facility] 12-24-2022 History of Presen t illness Narrative [...] capsules twice daily. Following with neurology in [place]. Asthma: Taking albuterol as needed, Zyrtec 10 [...] 03/10/2019 STRESS TEST 02/13/2022 ALLERGIES Dayquil Liquicaps [Cvqrfazsl-Ng-Uk-Acetaminophen ], Arithromycin [Azithromycin], Doxycycline, Latex, Mucinex Dm [...] Father Seizures Father Seizures Brother Heart Sister DC Heart Sister Seizures Sister Young Diabetes Maternal [...] diet of 1000 mg/day for under 50, 0652-4925 mg/day for 50+ - Discussed need and [...] APRN.DIXIE This note was partially generated using Fashfix voice recognition system. Note was reviewed for accuracy. There may be minor misspellings or grammar miscues with Fashfix voice recognition. documented in this encounter [facility] 12-24-2022 Miscellaneous Notes Formattin g of this [...] with Deniz Friedman, @ 11:20 am. Asking Hr Representative to check patient's urine b/c it smells like BM (patient was unable to give sample in lab). Asking Hr Representative to check all of patient's labs, b/c patient does not feel good: specifically patient's BS. Reports patient has been drinking a lot of diet pop, and mom knows this is not helping. Mother asking Hr Representative to look at patient's back, right side has a bulge, from shoulder to hip. Reports you can really see it when patient sits down. Mother wonders if it's curvature of the spine. documented in this encounter [facility] 12-16-2022 Miscellaneous Notes Formattin g of this [...] elevate as needed. Thank you. Silas Lewis APRN.L[employer] BUL[employer] TESTER documented in this encounter [facility] 12-11-2022 Note HNO ID: [id number] Author: Latonya Foote RT(R) Service: ? Author Type: Service Delivery Consultant Type: Progress Notes Filed: 12/11/2022 3:23 PM [...] IV DATA: Not applicable SIGNED BY: RT Mitch(R) December 11, 2022 3:05 PM [facility] 12-11-2022 Note HNO ID: [id number] Author: Silas Lewis APRN.L[employer] BULB TESTER Service: ? Author Type: Nurse Practitioner Type: [...] 03/10/2019 STRESS TEST 02/13/2022 ALLERGIES Dayquil Liquicaps [Oegnqbuzr-Xh-Vx-Acetaminophen ], Arithromycin [Azithromycin], Doxycycline, Latex, Mucinex Dm [...] Father Seizures Father Seizures Brother Heart Sister DC Heart Sister Seizures Sister Young Diabetes Maternal [...] for depression, anxiety, or suicidal ideation. EXAM: [facility] 02/26/2021 PHYSICAL EXAM: General Appearance: Well appearing, alert, in no acute distress, well-hydrated, well nourished. Skin: Skin color, texture, turgor normal, no suspicious rashes or les (more content not included)... [facility] 12-11-2022 Instructions Silas Lewis APRN.DIXIE - 12/11/2022 2:29 PM EDT Get xray completed Provide urine sample in the lab today Stay well hydrated. May use flonase mist nasal spray 1-2 times per day. May use Tessalon perles as needed for cough. Follow up pending test results. documented in this encounter [facility] 12-11-2022 History of Presen t illness Narrative [...] 03/10/2019 STRESS TEST 02/13/2022 ALLERGIES Dayquil Liquicaps [Hldgeuqjz-Ko-Lb-Acetaminophen ], Arithromycin [Azithromycin], Doxycycline, Latex, Mucinex Dm [...] Father Seizures Father Seizures Brother Heart Sister DC Heart Sister Seizures Sister Young Diabetes Maternal [...] for depression, anxiety, or suicidal ideation. EXAM: [facility] 02/26/2021 PHYSICAL EXAM: General Appearance: Well [...] APRN.DIXIE This note was partially generated using Fashfix voice recognition system. Note was reviewed for accuracy. There may be minor misspellings or grammar miscues with Fashfix voice recognition. documented in this encounter [facility] 10-20-2022 Miscellaneous Notes Formattin g of this [...] Denies other symptoms Protocols used: Diarrhea on Mwqiyyvxyiz-GGLJF-EK documented in this encounter [facility] 10-18-2022 Miscellaneous Notes Formattin g of this [...] Ángela Villa LPN documented in this encounter [facility] 09-22-2022 Miscellaneous Notes Formattin g of this note might be different from the original. Pt mother and pt notified. Mariana Gamez Ma TC to patient with no answer. Unable to leave VM, please try again later. PRESLEY Lebron Please notify patient that her A1c is normal. Daniel Chun MD documented in this encounter [facility] 09-18-2022 Note HNO ID: [id number] Author: Daniel Chun MD Service: ? Author [...] Father Seizures Father Seizures Brother Heart Sister DC Heart Sister Seizures Sister Young Diabetes Maternal [...] done SPIROMETRY N (more content not included)... [facility] 09-18-2022 History of Presen t illness Narrative [...] Father Seizures Father Seizures Brother Heart Sister DC Heart Sister Seizures Sister Young Diabetes Maternal [...] Past Histories independently gathered by the clinical support services tech and the remaining scribed note accurately describes [...] Mariana Gamez Ma documented in this encounter [facility] 08-20-2022 Note Patient Outreach (IN [facility]) VETOKAREN ([id number]) 1980 F Date Time Provider Department 08/20/22 DANIEL CHUN During your visit today, we recorded the following information about you: Allergies As of Date: 08/20/2022 Noted Allergy Reaction DAYQUIL LIQUICAPS (KIPMOPLTL-CY-N*09/27/2012 14 - Other: See Comments Comments: Caused [...] for screening mammogram for breast cancer [Z12.31] Order(s):[facility] SCREENING [0207890] Order #: [id number] FUTURE Prescriptions as of 08/25/2022 - benzonatate [...] R53.83] 12/30/2004 11/06/2014 Myalgia and myositis, unspecified [PKF1767] 05/08/2014 ESOPHAGEAL REFLUX [K21.9] Chronic factitious illness [...] >= 40 [E66.01] 06/03/2018 Encounter Status:Closed by Snapt, PRODUSER on 08/25/22 [facility] 08-08-2022 Miscellaneous Notes Formattin g of this [...] Gabriella Cano RN documented in this encounter [facility] 08-01-2022 Miscellaneous Notes Formattin g of this note might be different from the original. Pt notified. Mariana Gamez Ma Message left for patient to return call for update on results. ----- Message from Jess James APRN.DIXIE sent at 07/30/2022 6:02 AM EDT ----- Please let the patient know that her COVID testing was negative. Jess James CNP documented in this encounter [facility] 07-29-2022 Note HNO ID: [id number] Author: Jess James APRN.DIXIE Service: ? Author Type: Nurse Practitioner Type: [...] No. Previous treatment: No. Not using any tzjk-vcg-iahbeqa medications. Patient has a history of asthma. [...] - COVID WITH FLUA+B, ROUTINE Jess James APRN.LIGHT BULB TESTER This note was partly generated using Fashfix voice recognition dictation and may contain some misspelled or inaccurate words missed on review. [facility] 07-29-2022 History of Presen t illness Narrative [...] No. Previous treatment: No. Not using any ljfq-iyf-ytylmti medications. Patient has a history of asthma. [...] APRN.DIXIE This note was partly generated using Fashfix voice recognition dictation and may contain some misspelled or inaccurate words missed on review. documented in this encounter [facility] 07-14-2022 Miscellaneous Notes Formattin g of this note might be different from the original. Reason for call: Patient calling to reschedule appointment with cardiology. Patient was transferred to [facility] due to chest pain this morning and last night. Patient states pain was located on left side and last night she took nitrostat. Patient notes patient has been increasing in frequency. Patient denies shortness of breath at this time. Outcome: Patient declines ED recommendation. I spoke with Nurse Sally from [facility] who recommends the patient go to ED as well. I informed the patient and she states she will go to [facility] for evaluation. Reason for Disposition [1] Chest pain (or angina ) comes and goes AND [2] is happening more often (increasing in frequency) or getting worse (increasing in severity) (Exception: chest pains that last only a few seconds) Protocols used: Chest Tvyf-PQSEV-VK documented in this encounter [facility] 06-16-2022 Note HNO ID: [id number] Author: BRIDGETTE Weber Service: ? Author Type: Physician Load Test Mechanic Type: Progress Notes Filed: 06/16/2022 12:02 PM Note Text: This note was created using SpectrumDNAriter. Subjective Karen Barrera is a 41 year [...] 03/10/2019 STRESS TEST 02/13/2022 ALLERGIES Dayquil Liquicaps [Kxghyvttr-Tj-Nb-Acetaminophen ], Arithromycin [Azithromycin], Doxycycline, Latex, Mucinex Dm [...] Father Seizures Father Seizures Brother Heart Sister DC Heart Sister Seizures Sister Young Diabetes Maternal [...] with prn analgesia (more content not included)... [facility] 06-16-2022 History of Presen t illness Narrative This note was created using Brit[employer]. Subjective Karen Barrera is a 41 year [...] 03/10/2019 STRESS TEST 02/13/2022 ALLERGIES Dayquil Liquicaps [Pom[place]xuk-Ch-Xy-Acetaminophen ], Arithromycin [Azithromycin], Doxycycline, Latex, Mucinex Dm [...] Father Seizures Father Seizures Brother Heart Sister DC Heart Sister Seizures Sister Young Diabetes Maternal [...] evaluation. BRIDGETTE Weber documented in this encounter [facility] 06-04-2022 Miscellaneous Notes Formattin g of this note might be different from the original. Call placed to patient and mother notified prescriptions were sent to [facility] as requested. Gabriella Cano RN The following [...] for wheezing/shortness of breath. Verified with [facility] no refills on tessalon. Date of last [...] Gabriella Cano RN documented in this encounter [facility] 05-29-2022 Miscellaneous Notes Formattin g of this note might be different from the original. PA should not be needed since formulary option available. Spoke to carito who advised yes covered when ran for pro-air. Patient grandmother was notified Olimpia Pierson Ma Prior Authorization Documentation Prior authorization requested for the following medication: Medication: albuterol inhaler Provider: [employer] Name: [employer] Phone number: Patient ID number: [id number] Pharmacy Name: [facility] documented in this encounter [facility] 05-16-2022 Instructions Silas Lewis APRN.DIXIE - 05/16/2022 12:01 PM EST Start Augmentin, take with food. May use tessalon perles as needed for cough. Use albuterol inhaler as needed for shortness of breath or wheezing. Stay well hydrated. If post nasal drip becomes bothersome you can try flonase nasal spray. Follow up as needed. Dry skin recommend Eucerin or Aquaphor ointment. documented in this encounter [facility] 05-16-2022 History of Presen t illness Narrative [...] 03/10/2019 STRESS TEST 02/13/2022 ALLERGIES Dayquil Liquicaps [Dtzlmanpe-Ry-Sy-Acetaminophen ], Arithromycin [Azithromycin], Doxycycline, Latex, Mucinex Dm [...] Father Seizures Father Seizures Brother Heart Sister DC Heart Sister Seizures Sister Young Diabetes Maternal [...] APRN.DIXIE This note was partially generated using Fashfix voice recognition system. Note was reviewed for accuracy. There may be minor misspellings or grammar miscues with Fashfix voice recognition. documented in this encounter [facility] 05-14-2022 Miscellaneous Notes Formattin g of this [...] patient is still having difficulty urinating. Per Mary Polanco's note, patient may schedule at [place] today to have a catheter placed if having troubles urinating. Patient's mother said she would rather call [facility] to schedule an appointment. No further questions or concerns at this time. Maty Barba RN Please let the patient and guardian know that the ct scan is normal. She did mention she had constipation, is this still a problem? If so she will need to manage the constipation. If unable to void she can have a hung catheter placed today at [place] She would need to be here at [...] happens after CT. documented in this encounter [facility] 05-13-2022 History of Presen t illness Narrative [...] 2022 4:01 PM documented in this encounter [facility] 05-07-2022 Instructions Mary Polanco APRN.[facility] - 05/07/2022 3:45 PM EST Images from the [...] patient s medical history, current prescription and sshl-aay-ijhzytq medications, and allergies to medications, including anesthetics. [...] her bladder before the procedure begins. The cqtp-uu-akby process may be similar to this: The [...] urethral opening to relieve discomfort Take an grxl-aoz-meuzxcc pain medicine If necessary, the urologist may [...] urine Fever Severe discomfort References: NIH: National [place] of Diabetes and Digestive and Kidney Diseases. Cystoscopy and Ureteroscopy Accessed 10/16/2016. Sarah Sharma, Laila D, Vikram H, Carrington YOUNG. The History of Cystoscopy in Urology, Internet Journal of Urology. 14,1 (2015) [employer] Accessed 10/16/2016. [facility]. What is Cystoscopy? Accessed 10/16/2016. Copyright 1904-0297 The [facility]. All rights reserved. documented in this encounter [facility] 05-07-2022 History of Presen t illness Narrative [...] last menstrual period 02/26/2021. ALLERGIES: Dayquil Liquicaps [Ncdkkwxhw-Ba-Cs-Acetaminophen ], Arithromycin [Azithromycin], Doxycycline, Latex, Mucinex Dm [...] Father Seizures Father Seizures Brother Heart Sister DC Heart Sister Seizures Sister Young Diabetes Maternal [...] to schedule a follow up for cystoscopy Mary Polanco APRN.LIGHT BULB TESTER documented in this encounter [facility] 05-07-2022 Nurse Note Bladder scan obtained 0 ml of urine documented in this encounter [facility] 04-25-2022 Miscellaneous Notes Formattin g of this [...] will be seeing Urology on 05/07 in [place]. Reports nausea and back ache. After more [...] bronchitis and kidney issue, has not seen PUBLIC HOUSING MANAGER in many years. Denies recent general manager oracle data cloud surgery, recent general manager [employer] data cloud procedure; known bleeding disorder, cervical cancer, polycystic ovarian disease, or fibroids 11. HEMODYNAMIC STATUS: Denies feeling weak or feeling lightheaded, walking okay Protocols used: Vaginal Bleeding - Dtuzrpdz-JCZLH-OZ documented in this encounter [facility] 04-11-2022 Miscellaneous Notes Formattin g of this note might be different from the original. Patient notified of results, verbalizes understanding of instructions. Giovana Contreras LPN Can you please call the patient and let her know that her Covid/Flu were negative. I would recommend that she continue supportive care at home. May use Thiagoitussin and Tessalon Perles as needed for cough. Please let me know if she has any questions. Thank you. Silas Lewis APRN.CNP documented in this encounter [facility] 04-10-2022 Miscellaneous Notes Formattin g of this [...] care at home Thank you. Silas Lewis APRN.CNP documented in this encounter [facility] 04-10-2022 Instructions Silas Lewis APRN.CNP - 04/10/2022 2:11 PM EST Get chest xray completed. Continue supportive care at home. May use tessalon perles as needed for cough. Recommend using cough syrup as needed such as robitussin DM. Stay well hydrated. Covid/Flu results will be back tomorrow Follow up pending test results. documented in this encounter [facility] 04-10-2022 History of Presen t illness Narrative [...] 03/10/2019 STRESS TEST 02/13/2022 ALLERGIES Dayquil Liquicaps [Tftqzprhy-Mq-Xg-Acetaminophen ], Arithromycin [Azithromycin], Doxycycline, Latex, Mucinex Dm [...] Father Seizures Father Seizures Brother Heart Sister DC Heart Sister Seizures Sister Young Diabetes Maternal [...] discussed and patient voices understanding. Silas Lewis APRN.LIGHT BULB TESTER This note was partially generated using Fashfix voice recognition system. Note was reviewed for accuracy. There may be minor misspellings or grammar miscues with [employer] voice recognition. documented in this encounter [facility] 04-10-2022 Miscellaneous Notes Formattin g of this note is different from the original. Protocol recommends see provider in 4 hours. Scheduled same day appt with Hr Representative. Reason for Disposition Wheezing is present Answer Assessment - Initial Assessment Questions 1. ONSET: Cough started 3 days ago. 2. SEVERITY: Constant 3. SPUTUM: Brown sputum 4. HEMOPTYSIS: No 5. DIFFICULTY BREATHING: Mild SOB, audible wheezing 6. FEVER: Thinks she has fever. Hot/chills. Did not take temp. 7. CARDIAC HISTORY: See's maintenance mechanic supervisor- Dr. Carrero- thinks there is something wrong on inside of heart and has appt with specialist at [facility]. 8. LUNG HISTORY: Asthma 9. PE RISK FACTORS: No 10. OTHER SYMPTOMS: Wheezing. Has had CP for a while now (more than 2 months) and sees maintenance mechanic supervisor for this. Ear pain. No sore throat. Runny nose. 11. : No 12. TRAVEL: No exposures. No covid vaccine. No flu vaccine. Protocols used: Cough - Acute Foznzedoim-WZHLM-JC documented in this encounter [facility] 04-07-2022 Miscellaneous Notes Formattin g of this note might be different from the original. Unable to reach patient. Left VM to return call to office. Please read below and advise. Sherlyn Hood MA Agree. Patient needs evaluated to determine if antibiotic is recommended or if this is just a viral illness. Jess James APRN.LIGHT BULB TESTER Patient call in for coughing up brown [...] other symptoms Protocols used: Cough - Acute Domfwxnkji-AQSZB-AE documented in this encounter [facility] 03-10-2022 Miscellaneous Notes Formattin g of this [...] how she has been feeling? Silas Lewis APRN.CNP documented in this encounter [facility] 03-05-2022 Instructions Silas Lewis APRN.CNP - 03/05/2022 2:45 PM EST Get labs and urine testing completed. Schedule appointment for ultrasound as soon as possible. If you cannot urinate go to ER. May use tessalon perles as needed for cough. Follow up pending test results or sooner as needed. documented in this encounter [facility] 03-05-2022 History of Presen t illness Narrative [...] removal from lower back ALLERGIES Dayquil Liquicaps [Vmyegwucs-On-Ok-Acetaminophen ], Arithromycin [Azithromycin], Doxycycline, Latex, Mucinex Dm [...] Father Seizures Father Seizures Brother Heart Sister DC Heart Sister Seizures Sister Young Diabetes Maternal [...] discussed and patient voices understanding. Silas Lewis APRN.LIGHT BULB TESTER This note was partially generated using F[employer]fix voice recognition system. Note was reviewed for accuracy. There may be minor misspellings or grammar miscues with [employer] voice recognition. documented in this encounter [facility] 03-04-2022 Miscellaneous Notes Formattin g of this [...] Sheree Roberson LPN documented in this encounter [facility] 01-06-2022 Miscellaneous Notes Addended by: DANIEL CHUN [...] in her chest. She usees the [facility] in [place], she mentioned provider told her they would refill the medication again and to just call back for that refill. Patient can be reached at phone# [phone], this number has been verified. documented in this encounter [facility] 12-10-2021 Miscellaneous Notes Formattin g of this note might be different from the original. Referral and demo faxed to Dr. Behzad Carreno's office. Will have them call pt to schedule. Mariana Gamez Ma Mother called back and would like the referral faxed to Dr. Behzad Carreno at [facility]. Called and spoke with Mother, Kennedi [...] she wonders if she should see a shingles roofer helper for this mole? Please call to advise at [phone]. Phone number is house phone and has been verified. Thank you documented in this encounter [facility] 12-10-2021 Miscellaneous Notes Formattin g of this [...] as pended. Patient can be reached at [phone] with any questions. documented in this encounter [facility] 12-09-2021 History of Presen t illness Narrative Chief Complaint Patient presents with: Physical HPI Karen Barrera is a 41 year old female who presents here today for a Physical. Pt not seen in office since 09/10/20. Has pain with urination and urinary frequency for the last few days. Has seen [facility] in the past due to [...] Father Seizures Father Seizures Brother Heart Sister DC Heart Sister Seizures Sister Young Diabetes Maternal [...] Past Histories independently gathered by the clinical support services tech and the remaining scribed note accurately describes [...] Mariana Gamez Ma documented in this encounter [facility] 11-15-2021 Miscellaneous Notes The following approved medication requests have been transmitted electronically. Pending Prescriptions Disp Refills ALBUTEROL SULFATE HFA 90 MCG/ACTUATION AEROSOL INHALER 18 g 2 Sig: Inhale 2 Puffs as instructed every 4 hours as needed. 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/08/2015 documented as of this encounter (statuses as of 12/09/2021) [facility] History of Past illness Narrative* Problem Noted Date Resolved Date Irregular menses 10/03/2011 10/27/2012 Other malaise and fatigue 12/30/20042014 Myalgia and myositis, unspecified 05/08/2014 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/08/2015 documented as of this encounter (statuses as of 12/10/2021) [facility] History of Past illness Narrative* Problem Noted Date Resolved Date Irregular menses 10/03/2011 10/27/2012 Other malaise and fatigue 12/30/20042014 Myalgia and myositis, unspecified 05/08/2014 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/08/2015 documented as of this encounter (statuses as of 12/10/2021) [facility] History of Past illness Narrative* Problem Noted Date Resolved Date Irregular menses 10/03/2011 10/27/2012 Other malaise and fatigue 12/30/20042014 Myalgia and myositis, unspecified 05/08/2014 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/08/2015 documented as of this encounter (statuses as of 01/06/2022) [facility] History of Past illness Narrative* Problem Noted Date Resolved Date Irregular menses 10/03/2011 10/27/2012 Other malaise and fatigue 12/30/20042014 Myalgia and myositis, unspecified 05/08/2014 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/08/2015 documented as of this encounter (statuses as of 03/04/2022) [facility] History of Past illness Narrative* Problem Noted Date Resolved Date Irregular menses 10/03/2011 10/27/2012 Other malaise and fatigue 12/30/20042014 Myalgia and myositis, unspecified 05/08/2014 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/08/2015 documented as of this encounter (statuses as of 03/05/2022) [facility] History of Past illness Narrative* Problem Noted Date Resolved Date Irregular menses 10/03/2011 10/27/2012 Other malaise and fatigue 12/30/20042014 Myalgia and myositis, unspecified 05/08/2014 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/08/2015 documented as of this encounter (statuses as of 03/07/2022) [facility] History of Past illness Narrative* Problem Noted Date Resolved Date Irregular menses 10/03/2011 10/27/2012 Other malaise and fatigue 12/30/20042014 Myalgia and myositis, unspecified 05/08/2014 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/08/2015 documented as of this encounter (statuses as of 03/10/2022) [facility] History of Past illness Narrative* Problem Noted Date Resolved Date Irregular menses 10/03/2011 10/27/2012 Other malaise and fatigue 12/30/20042014 Myalgia and myositis, unspecified 05/08/2014 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/08/2015 documented as of this encounter (statuses as of 04/09/2022) [facility] History of Past illness Narrative* Problem Noted Date Resolved Date Irregular menses 10/03/2011 10/27/2012 Other malaise and fatigue 12/30/20042014 Myalgia and myositis, unspecified 05/08/2014 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/08/2015 documented as of this encounter (statuses as of 04/11/2022) [address]-2012 History of Past illness Narrative* Problem Noted Date Resolved Date Irregular menses 10/03/2011 10/27/2012 Other malaise and fatigue 12/30/20042014 Myalgia and myositis, unspecified 05/08/2014 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/08/2015 documented as of this encounter (statuses as of 04/12/2022) [facility] History of Past illness Narrative* Problem Noted Date Resolved Date Irregular menses 10/03/2011 10/27/2012 Other malaise and fatigue 12/30/20042014 Myalgia and myositis, unspecified 05/08/2014 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/08/2015 documented as of this encounter (statuses as of 04/13/2022) [facility] History of Past illness Narrative* Problem Noted Date Resolved Date Irregular menses 10/03/2011 10/27/2012 Other malaise and fatigue 12/30/20042014 Myalgia and myositis, unspecified 05/08/2014 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/08/2015 documented as of this encounter (statuses as of 04/26/2022) [facility] History of Past illness Narrative* Problem Noted Date Resolved Date Irregular menses 10/03/2011 10/27/2012 Other malaise and fatigue 12/30/20042014 Myalgia and myositis, unspecified 05/08/2014 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/08/2015 documented as of this encounter (statuses as of 05/07/2022) [facility] History of Past illness Narrative* Problem Noted Date Resolved Date Irregular menses 10/03/2011 10/27/2012 Other malaise and fatigue 12/30/20042014 Myalgia and myositis, unspecified 05/08/2014 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/08/2015 documented as of this encounter (statuses as of 05/15/2022) [address]-2012 History of Past illness Narrative* Problem Noted Date Resolved Date Irregular menses 10/03/2011 10/27/2012 Other malaise and fatigue 12/30/20042014 Myalgia and myositis, unspecified 05/08/2014 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/08/2015 documented as of this encounter (statuses as of 05/16/2022) [facility] History of Past illness Narrative* Problem Noted Date Resolved Date Irregular menses 10/03/2011 10/27/2012 Other malaise and fatigue 12/30/20042014 Myalgia and myositis, unspecified 05/08/2014 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/08/2015 documented as of this encounter (statuses as of 05/29/2022) [facility] History of Past illness Narrative* Problem Noted Date Resolved Date Irregular menses 10/03/2011 10/27/2012 Other malaise and fatigue 12/30/20042014 Myalgia and myositis, unspecified 05/08/2014 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/08/2015 documented as of this encounter (statuses as of 06/05/2022) [facility] History of Past illness Narrative* Problem Noted Date Resolved Date Irregular menses 10/03/2011 10/27/2012 Other malaise and fatigue 12/30/20042014 Myalgia and myositis, unspecified 05/08/2014 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/08/2015 documented as of this encounter (statuses as of 06/16/2022) [facility] History of Past illness Narrative* Problem Noted Date Resolved Date Irregular menses 10/03/2011 10/27/2012 Other malaise and fatigue 12/30/20042014 Myalgia and myositis, unspecified 05/08/2014 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/08/2015 documented as of this encounter (statuses as of 07/14/2022) [facility] History of Past illness Narrative* Problem Noted Date Resolved Date Irregular menses 10/03/2011 10/27/2012 Other malaise and fatigue 12/30/20042014 Myalgia and myositis, unspecified 05/08/2014 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/08/2015 documented as of this encounter (statuses as of 07/30/2022) [address]-2012 History of Past illness Narrative* Problem Noted Date Resolved Date Irregular menses 10/03/2011 10/27/2012 Other malaise and fatigue 12/30/20042014 Myalgia and myositis, unspecified 05/08/2014 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/08/2015 documented as of this encounter (statuses as of 08/02/2022) [facility] History of Past illness Narrative* Problem Noted Date Resolved Date Irregular menses 10/03/2011 10/27/2012 Other malaise and fatigue 12/30/20042014 Myalgia and myositis, unspecified 05/08/2014 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/08/2015 documented as of this encounter (statuses as of 08/09/2022) [facility] History of Past illness Narrative* Problem Noted Date Resolved Date Irregular menses 10/03/2011 10/27/2012 Other malaise and fatigue 12/30/20042014 Myalgia and myositis, unspecified 05/08/2014 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/08/2015 documented as of this encounter (statuses as of 08/14/2022) [facility] History of Past illness Narrative* Problem Noted Date Resolved Date Irregular menses 10/03/2011 10/27/2012 Other malaise and fatigue 12/30/20042014 Myalgia and myositis, unspecified 05/08/2014 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/08/2015 documented as of this encounter (statuses as of 08/25/2022) [facility] History of Past illness Narrative* Problem Noted Date Resolved Date Irregular menses 10/03/2011 10/27/2012 Other malaise and fatigue 12/30/20042014 Myalgia and myositis, unspecified 05/08/2014 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/08/2015 documented as of this encounter (statuses as of 09/19/2022) [facility] History of Past illness Narrative* Problem Noted Date Resolved Date Irregular menses 10/03/2011 10/27/2012 Other malaise and fatigue 12/30/20042014 Myalgia and myositis, unspecified 05/08/2014 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/08/2015 documented as of this encounter (statuses as of 09/23/2022) [facility] History of Past illness Narrative* Problem Noted Date Resolved Date Irregular menses 10/03/2011 10/27/2012 Other malaise and fatigue 12/30/20042014 Myalgia and myositis, unspecified 05/08/2014 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/08/2015 documented as of this encounter (statuses as of 10/18/2022) [facility] History of Past illness Narrative* Problem Noted Date Resolved Date Irregular menses 10/03/2011 10/27/2012 Other malaise and fatigue 12/30/20042014 Myalgia and myositis, unspecified 05/08/2014 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/08/2015 documented as of this encounter (statuses as of 10/20/2022) [facility] History of Past illness Narrative* Problem Noted Date Diagnosed Date Resolved Date Irregular menses 10/03/2011 10/27/2012 Other malaise and fatigue 12/30/2004 Myalgia and myositis, unspecified 05/08/2014 Chronic factitious illness w ith physical symptoms 10/08/2015 documented as of this encounter (statuses as of 12/12/2022) [facility] History of Past illness Narrative* Problem Noted Date Diagnosed Date Resolved Date Irregular menses 10/03/2011 10/27/2012 Other malaise and fatigue 12/30/2004 Myalgia and myositis, unspecified 05/08/2014 Chronic factitious illness w ith physical symptoms 10/08/2015 documented as of this encounter (statuses as of 12/16/2022) [facility] History of Past illness Narrative* Problem Noted Date Diagnosed Date Resolved Date Irregular menses 10/03/2011 10/27/2012 Other malaise and fatigue 12/30/2004 Myalgia and myositis, unspecified 05/08/2014 Chronic factitious illness w ith physical symptoms 10/08/2015 documented as of this encounter (statuses as of 12/24/2022) [facility] History of Past illness Narrative* Problem Noted Date Diagnosed Date Resolved Date Irregular menses 10/03/2011 10/27/2012 Other malaise and fatigue 12/30/2004 Myalgia and myositis, unspecified 05/08/2014 Chronic factitious illness w ith physical symptoms 10/08/2015 documented as of this encounter (statuses as of 12/26/2022) [facility] History of Past illness Narrative* Problem Noted Date Diagnosed Date Resolved Date Irregular menses 10/03/2011 10/27/2012 Other malaise and fatigue 12/30/2004 Myalgia and myositis, unspecified 05/08/2014 Chronic factitious illness w ith physical symptoms 10/08/2015 documented as of this encounter (statuses as of 12/30/2022) [facility] History of Past illness Narrative* Problem Noted Date Diagnosed Date Resolved Date Irregular menses 10/03/2011 10/27/2012 Other malaise and fatigue 12/30/2004 Myalgia and myositis, unspecified 05/08/2014 Chronic factitious illness w ith physical symptoms 10/08/2015 documented as of this encounter (statuses as of 01/30/2023) [facility] History of Past illness Narrative* Problem Noted Date Diagnosed Date Resolved Date Irregular menses 10/03/2011 10/27/2012 Other malaise and fatigue 12/30/2004 Myalgia and myositis, unspecified 05/08/2014 Chronic factitious illness w ith physical symptoms 10/08/2015 documented as of this encounter (statuses as of 02/09/2023) [facility] History of Past illness Narrative* Problem Noted Date Diagnosed Date Resolved Date Irregular menses 10/03/2011 10/27/2012 Other malaise and fatigue 12/30/2004 Myalgia and myositis, unspecified 05/08/2014 Chronic factitious illness w ith physical symptoms 10/08/2015 documented as of this encounter (statuses as of 02/22/2023) [facility] History of Past illness Narrative* Problem Noted Date Diagnosed Date Resolved Date Irregular menses 10/03/2011 10/27/2012 Other malaise and fatigue 12/30/2004 Myalgia and myositis, unspecified 05/08/2014 Chronic factitious illness w ith physical symptoms 10/08/2015 documented as of this encounter (statuses as of 02/22/2023) [facility] History of Past illness Narrative* Problem Noted Date Diagnosed Date Resolved Date Irregular menses 10/03/2011 10/27/2012 Other malaise and fatigue 12/30/2004 Myalgia and myositis, unspecified 05/08/2014 Chronic factitious illness w ith physical symptoms 10/08/2015 documented as of this encounter (statuses as of 02/22/2023) [facility] History of Past illness Narrative* Problem Noted Date Diagnosed Date Resolved Date Irregular menses 10/03/2011 10/27/2012 Other malaise and fatigue 12/30/2004 Myalgia and myositis, unspecified 05/08/2014 Chronic factitious illness w ith physical symptoms 10/08/2015 documented as of this encounter (statuses as of 03/03/2023) [facility] History of Past illness Narrative* Problem Noted Date Diagnosed Date Resolved Date Irregular menses 10/03/2011 10/27/2012 Other malaise and fatigue 12/30/2004 Myalgia and myositis, unspecified 05/08/2014 Chronic factitious illness w ith physical symptoms 10/08/2015 documented as of this encounter (statuses as of 03/25/2023) [facility] History of Past illness Narrative* Problem Noted Date Diagnosed Date Resolved Date Irregular menses 10/03/2011 10/27/2012 Other malaise and fatigue 12/30/2004 Myalgia and myositis, unspecified 05/08/2014 Chronic factitious illness w ith physical symptoms 10/08/2015 documented as of this encounter (statuses as of 05/23/2023) [facility] History of Past illness Narrative* Problem Noted Date Diagnosed Date Resolved Date Irregular menses 10/03/2011 10/27/2012 Other malaise and fatigue 12/30/2004 Myalgia and myositis, unspecified 05/08/2014 Chronic factitious illness w ith physical symptoms 10/08/2015 documented as of this encounter (statuses as of 05/27/2023) [facility]* Diagnosis Cough Moderate persistent asthma with acute exacerbation [facility] Diagnosis Sinobronchitis- Primary Unspecified sinusitis (chronic) Otalgia of both ears Otalgia, unspecified Obesity, Class III, BMI >= 40 Morbid obesity Seizure disorder (HCC) Unspecified epilepsy without mention of intractable epilepsy Arthritis of knee Unspecified arthropathy, lower leg Moderate persistent asthma with acute exacerbation Nasal congestion Other diseases of nasal cavity and sinuses Dysuria [facility] this [facility] Diagnosis Cough Moderate persistent asthma with acute exacerbation Sinobronchitis Unspecified sinusitis (chronic) Otalgia of both ears Otalgia, unspecified [facility] Diagnosis Skin lesion- Primary Unspecified disorder of skin and subcutaneous tissue documented [facility] this [facility]* Diagnosis Sinobronchitis Unspecified sinusitis (chronic) documented [facility]* Diagnosis Decreased urine stream- Primary Slowing of urinary stream Bilateral flank pain Abdominal pain, unspecified site Sinobronchitis Unspecified sinusitis (chronic) Acute cough [facility] Diagnosis Viral illness- Primary Unspecified viral infection, in conditions classified elsewhere and of unspecified site Acute cough [facility] Diagnosis Bilateral flank pain- Primary Abdominal pain, unspecified site Decreased urine stream Slowing of urinary stream Calcium oxalate crystals in urine Other nonspecific finding on examination of urine [facility] Diagnosis Sinobronchitis- Primary Unspecified sinusitis (chronic) Acute cough SOB (shortness of breath) Shortness of breath [facility] Diagnosis Acute cough SOB (shortness of breath) Shortness of breath documented [facility] this [facility]* Diagnosis URI, acute- Primary Acute upper respiratory infections of unspecified site Acute recurrent sinusitis, unspecified location [facility] Diagnosis Sinobronchitis- Primary Unspecified sinusitis (chronic) Rhinorrhea Other diseases of nasal cavity and sinuses Moderate persistent asthma with acute exacerbation Suspected COVID-19 virus infection documented [facility]* Diagnosis Encounter for screening mammogram for breast cancer [facility] Diagnosis Elevated glucose- Primary Other abnormal glucose Sinobronchitis Unspecified sinusitis (chronic) Moderate persistent asthma with acute exacerbation [facility] Diagnosis Sinobronchitis Unspecified sinusitis (chronic) documented [facility] this [facility]* Diagnosis Moderate persistent asthma with acute exacerbation- Primary Acute cough Sinus congestion Other diseases of nasal cavity and sinuses Rhinorrhea Other diseases of nasal cavity and sinuses Acute pain of right knee Dysuria [facility] Diagnosis Wellness examination- Primary Yeast infection [...] for lipoid disorders documented [facility] this [facility]* Diagnosis Back pain, unspecified back location, unspecified back pain laterality, unspecified chronicity- Primary Curvature of spine Unspecified curvature of spine Bilateral hip pain Pain in joint, pelvic region and thigh Sinobronchitis Unspecified sinusitis (chronic) Cough, unspecified type Delusional disorders (HCC) Obesity, Class III, BMI 40-49.9 (morbid obesity) (HCC) Morbid obesity Hyperprolactinemia (HCC) Other and unspecified anterior pituitary hyperfunction documented [facility] this [facility]* Diagnosis Decreased urine stream Slowing of urinary stream Calcium oxalate crystals in urine Other nonspecific finding on examination of urine Bilateral flank pain Abdominal pain, unspecified site documented [facility] this [facility]* Diagnosis Back pain, unspecified back location, unspecified back pain laterality, unspecified chronicity Curvature of spine Unspecified curvature of spine documented in this encounter [facility] note* Diagnosis Decreased urine stream Slowing of urinary stream Bilateral flank pain Abdominal pain, unspecified site [facility] Diagnosis Cough, unspecified type [facility] Diagnosis Acute pain of right knee Rhinorrhea Other diseases of nasal cavity and sinuses documented in this encounter [facility] note* Diagnosis Non-recurrent acute suppurative otitis media of right ear without spontaneous rupture of tympanic membrane- Primary Cough, unspecified type Moderate persistent asthma with acute exacerbation documented in this encounter [facility] for referral (narrative)* Diagnostic Procedure Only (Urgent) - Authorized Specialty Diagnoses / Procedures Referred By Yvan hare Referred To Contact US IMAGING Diagnoses Decreased urine stream Bilateral flank pain Procedures US KIDNEY/BLADDER US RETROPERITONEAL REAL TIME W/IMAGE COMPLETE Silas Lewis APRN.CNP [address] [place] [address] Us Imaging Referral ID Status Reason Start Date Expiration Date Visits Requested Visits Authorized [id number] Authorized Auto-Generat ed Referral 04/04/2023 1 1 [facility] for referral (narrative)* Diagnostic Procedure Only (Routine) - Pending Review Specialty Diagnoses / Procedures Referred By Yvan hare Referred To Contact BR IMAGING Diagnoses Encounter for screening mammogram for breast cancer Procedures AUGIE SCREENING SCREENING MAMMOGRAPHY BI 2-VIEW BREAST INC CAD Daniel Chun MD [address] [place] [address] Br Imaging [address] [place] [address] Referral ID Status Reason Start Date Expiration Date Visits Requested Visits Authorized [id number] Pending Review Auto-Generat ed Referral 08/20/2022 09/19/2023 1 1 [facility] for referral (narrative)* Diagnostic Procedure Only (Routine) - Closed Specialty Diagnoses / Procedures Referred By Contac t Referred To Contact XR IMAGING Diagnoses Acute pain of right knee Procedures XR KNEE LIMITED 2V AP/LAT RIGHT RADIOLOGIC EXAMINATION KNEE 1/2 VIEWS Silas Lewis APRN.CNP [address] [place] [address] [place] [address] Referral ID Status Reason Start Date Expiration Date V isits Requested Visits Authorized [id number] Closed Auto-Generate d Referral 12/11/2022 01/10/2024 1 1 [facility] for referral (narrative)* Outpatient Procedure (Routine) - Authorized Specialty Diagnoses / Procedures Referred By Contac t Referred To [facility] Diagnoses Moderate persistent asthma with acute exacerbation Procedures NITRIC OXIDE, EXHALED NITRIC OXIDE GAS DETERMINATION Silas Lewis APRN.LIGHT BULB TESTER [address] [place] [address] Respiratory [place] [address] [place] [id number] Referral ID Status Reason Start Date Expiration Date Visits Requested Visits Authorized [id number] Authorized Auto-Generat ed Referral 12/24/2022 01/23/2024 1 1 * Outpatient Procedure (Routine) - Pending Review Specialty Diagnoses / Procedures Referred By Contac t Referred To [facility] [place] Diagnoses Moderate persistent asthma with acute exacerbation Procedures LUNG VOLUMES Silas Lewis APRN.LIGHT [employer]ULB TESTER [address] [place] [address] [address] Referral ID Status Reason Start Date Expiration Date Visits Requested Visits Authorized [id number] Pending Review Auto-Generat ed Referral 12/24/2022 01/23/2024 1 1 * Outpatient Procedure (Routine) - Authorized Specialty Diagnoses / Procedures Referred By Contac t Referred To Contact [facility] Diagnoses Moderate persistent asthma with acute exacerbation Procedures SPIROMETRY - BASELINE AND POST DILATOR BRNCDILAT RSPSE SPMTRY PRE&POST-BRNCDILAT Silas Whitlock APRN.CNP [address] [place] [address] Respiratory [place] [address] [place] [address] Referral ID Status Reason Start Date Expiration Date Visits Requested Visits Authorized [id number] Authorized Auto-Generat ed Referral 12/24/2022 01/23/2024 1 1 [facility] for referral (narrative)* Diagnostic Procedure Only (Routine) - Authorized Specialty Diagnoses / Procedures Referred By Yvan hare Referred To Contact XR IMAGING Diagnoses Back pain, unspecified back location, unspecified back pain laterality, unspecified chronicity Curvature of spine Procedures XR SCOLIOSIS PA STAND/LAT 2V RADEX ENTIR THRC LMBR CRV SAC SPI W/SKULL 2/3 Daniel Paredes MD [address] [place] [address] [place] [address] Referral ID Status Reason Start Date Expiration Date Visits Requested Visits Authorized [id number] Authorized Auto-Generat ed Referral 02/29/2024 1 1 [facility] for referral (narrative)* Diagnostic Procedure Only (Routine) - Closed Specialty Diagnoses / Procedures Referred By Yvan hare Referred To Contact XR IMAGING Diagnoses Back pain, unspecified back location, unspecified back pain laterality, unspecified chronicity Curvature of spine Procedures XR SCOLIOSIS PA STAND/LAT 2V RADEX ENTIR THRC LMBR CRV SAC SPI W/SKULL 2/3 Daniel Paredes MD [address] [place] [address] [place] [address] Referral ID Status Reason Start Date Expiration Date V isits Requested Visits Authorized [id number] Closed Auto-Generate d Referral 01/30/2023 02/29/2024 1 1 [facility] for referral (narrative)* Diagnostic Procedure Only (Urgent) - Closed Specialty Diagnoses / Procedures Referred By Contac t Referred To Contact US IMAGING Diagnoses Decreased urine stream Bilateral flank pain Procedures US KIDNEY/BLADDER US RETROPERITONEAL REAL TIME W/IMAGE COMPLETE Silas Lewis APRN.LIGHT [employer]UL[employer] TESTER [address] [place] [address] [place] [address] Referral ID Status Reason Start Date Expiration Date V isits Requested Visits Authorized [id number] Closed Auto-Generate d Referral 03/05/2022 04/04/2023 1 1 [facility] for visit Narrative* Diagnostic Procedure Only (Routine) - Closed Specialty Diagnoses / Procedures Referred By Contac t Referred To Contact XR IMAGING Diagnoses Back pain, unspecified back location, unspecified back pain laterality, unspecified chronicity Curvature of spine Procedures XR SCOLIOSIS PA STAND/LAT 2V RADEX ENTIR THRC LMBR CRV SAC SPI W/SKULL 2/3 V[facility] Daniel Chun MD [address] [place] [address] [place] [address] Referral ID Status Reason Start Date Expiration Date V isits Requested Visits Authorized [id number] Closed Auto-Generate d Referral 01/30/2023 02/29/2024 1 1 [facility] for visit Narrative* Diagnostic Procedure Only (Urgent) - Closed Specialty Diagnoses / Procedures Referred By Contac t Referred To Contact US IMAGING Diagnoses Decreased urine stream Bilateral flank pain Procedures US KIDNEY/BLADDER US RETROPERITONEAL REAL TIME W/IMAGE COMPLETE Silas Lewis APRN.L[employer] [address] [place] [address] [place] [address] Referral ID Status Reason Start Date Expiration Date V isits Requested Visits Authorized [id number] Closed Auto-Generate d Referral 03/05/2022 04/04/2023 1 1 [facility] Summary Purpose Family History No Family History Records FoundNo Family History Records FoundNo Family History Records Found Advance Directives No Advanced Directives Records FoundNo Advanced Directives Records FoundNo Advanced Directives Records Found Reason for Referral Specialty Diagnoses / Procedures Referred By Contac t Referred To Contact Dermatology Diagnoses Skin lesion Procedures CONSULT TO DERMATOLOGY Daniel Chun MD [address] [place] [address] Referral ID Status Reason Start Date Expiration Date Visits Requested Visits Authorized [id number] Ref Not Required PCP Requested Referral 12/10/2021 12/10/2022 1 1 Specialty Diagnoses / Procedures Referred By Contac t Referred To Contact CT IMAGING Diagnoses Decreased urine stream Calcium oxalate crystals in urine Bilateral flank pain Procedures CT FLANK WO IVCON CT ABD & PELVIS W/O CONTRAST Mary Polanco, [employer] [address] [place] [address] Ct Imaging Referral ID Status Reason Start Date Expiration Date Visits Requested Visits Authorized [id number] Authorized Auto-Generat ed Referral 05/07/2022 06/06/2023 1 1 Specialty Diagnoses / Procedures Referred By Contac t Referred To Contact CT IMAGING Diagnoses Decreased urine stream Calcium oxalate crystals in urine Bilateral flank pain Procedures CT FLANK WO IVCON CT ABD & PELVIS W/O CONTRAST Mary Polanco, [employer] [address] [place] [address] [place] [address] Referral ID Status Reason Start Date Expiration Date V isits Requested Visits Authorized [id number] Closed Auto-Generate d Referral 05/07/2022 06/06/2023 1 1 Additional Source Comments INFORMATION SOURCE (unrecogn ized section and content) DATE CREATED AUTHOR AUTHOR'S ORGANIZ ATION 06/01/2019 [facility] ([place]) DATE CREATED AUTHOR AUTHOR'S ORGANIZ ATION 06/01/2023 [facility] Source Comments (unrecognize d section and content) In the event this informatio n is protected by the Federal Confidentiality of Alcohol and Drug Abuse Patient Records regulations: The Federal rules restrict any use of the information to criminally investigate or prosecute any alcohol or drug abuse patient.[facility] the event this information is protected by the Federal Confidentiality of Alcohol and Drug Abuse Patient Records regulations: The Federal rules restrict any use of the information to criminally investigate or prosecute any alcohol or drug abuse patient.[facility] the event this information is protected by the Federal Confidentiality of Alcohol and Drug Abuse Patient Records regulations: The Federal rules restrict any use of the information to criminally investigate or prosecute any alcohol or drug abuse patient.[facility] the event this information is protected by the Federal Confidentiality of Alcohol and Drug Abuse Patient Records regulations: The Federal rules restrict any use of the information to criminally investigate or prosecute any alcohol or drug abuse patient.[facility] the event this information is protected by the Federal Confidentiality of Alcohol and Drug Abuse Patient Records regulations: The Federal rules restrict any use of the information to criminally investigate or prosecute any alcohol or drug abuse patient.[facility] the event this information is protected by the Federal Confidentiality of Alcohol and Drug Abuse Patient Records regulations: The Federal rules restrict any use of the information to criminally investigate or prosecute any alcohol or drug abuse patient.[facility] the event this information is protected by the Federal Confidentiality of Alcohol and Drug Abuse Patient Records regulations: The Federal rules restrict any use of the information to criminally investigate or prosecute any alcohol or drug abuse patient.[facility] the event this information is protected by the Federal Confidentiality of Alcohol and Drug Abuse Patient Records regulations: The Federal rules restrict any use of the information to criminally investigate or prosecute any alcohol or drug abuse patient.[facility] the event this information is protected by the Federal Confidentiality of Alcohol and Drug Abuse Patient Records regulations: The Federal rules restrict any use of the information to criminally investigate or prosecute any alcohol or drug abuse patient.[facility] the event this information is protected by the Federal Confidentiality of Alcohol and Drug Abuse Patient Records regulations: The Federal rules restrict any use of the information to criminally investigate or prosecute any alcohol or drug abuse patient.[facility] the event this information is protected by the Federal Confidentiality of Alcohol and Drug Abuse Patient Records regulations: The Federal rules restrict any use of the information to criminally investigate or prosecute any alcohol or drug abuse patient.[facility] the event this information is protected by the Federal Confidentiality of Alcohol and Drug Abuse Patient Records regulations: The Federal rules restrict any use of the information to criminally investigate or prosecute any alcohol or drug abuse patient.[facility] the event this information is protected by the Federal Confidentiality of Alcohol and Drug Abuse Patient Records regulations: The Federal rules restrict any use of the information to criminally investigate or prosecute any alcohol or drug abuse patient.[facility] the event this information is protected by the Federal Confidentiality of Alcohol and Drug Abuse Patient Records regulations: The Federal rules restrict any use of the information to criminally investigate or prosecute any alcohol or drug abuse patient.[facility] the event this information is protected by the Federal Confidentiality of Alcohol and Drug Abuse Patient Records regulations: The Federal rules restrict any use of the information to criminally investigate or prosecute any alcohol or drug abuse patient.[facility] the event this information is protected by the Federal Confidentiality of Alcohol and Drug Abuse Patient Records regulations: The Federal rules restrict any use of the information to criminally investigate or prosecute any alcohol or drug abuse patient.[facility] the event this information is protected by the Federal Confidentiality of Alcohol and Drug Abuse Patient Records regulations: The Federal rules restrict any use of the information to criminally investigate or prosecute any alcohol or drug abuse patient.[facility] the event this information is protected by the Federal Confidentiality of Alcohol and Drug Abuse Patient Records regulations: The Federal rules restrict any use of the information to criminally investigate or prosecute any alcohol or drug abuse patient.[facility] the event this information is protected by the Federal Confidentiality of Alcohol and Drug Abuse Patient Records regulations: The Federal rules restrict any use of the information to criminally investigate or prosecute any alcohol or drug abuse patient.[facility] the event this information is protected by the Federal Confidentiality of Alcohol and Drug Abuse Patient Records regulations: The Federal rules restrict any use of the information to criminally investigate or prosecute any alcohol or drug abuse patient.[facility] the event this information is protected by the Federal Confidentiality of Alcohol and Drug Abuse Patient Records regulations: The Federal rules restrict any use of the information to criminally investigate or prosecute any alcohol or drug abuse patient.[facility] the event this information is protected by the Federal Confidentiality of Alcohol and Drug Abuse Patient Records regulations: The Federal rules restrict any use of the information to criminally investigate or prosecute any alcohol or drug abuse patient.[facility] the event this information is protected by the Federal Confidentiality of Alcohol and Drug Abuse Patient Records regulations: The Federal rules restrict any use of the information to criminally investigate or prosecute any alcohol or drug abuse patient.[facility] the event this information is protected by the Federal Confidentiality of Alcohol and Drug Abuse Patient Records regulations: The Federal rules restrict any use of the information to criminally investigate or prosecute any alcohol or drug abuse patient.[facility] the event this information is protected by the Federal Confidentiality of Alcohol and Drug Abuse Patient Records regulations: The Federal rules restrict any use of the information to criminally investigate or prosecute any alcohol or drug abuse patient.[facility] the event this information is protected by the Federal Confidentiality of Alcohol and Drug Abuse Patient Records regulations: The Federal rules restrict any use of the information to criminally investigate or prosecute any alcohol or drug abuse patient.[facility] the event this information is protected by the Federal Confidentiality of Alcohol and Drug Abuse Patient Records regulations: The Federal rules restrict any use of the information to criminally investigate or prosecute any alcohol or drug abuse patient.[facility] the event this information is protected by the Federal Confidentiality of Alcohol and Drug Abuse Patient Records regulations: The Federal rules restrict any use of the information to criminally investigate or prosecute any alcohol or drug abuse patient.[facility] the event this information is protected by the Federal Confidentiality of Alcohol and Drug Abuse Patient Records regulations: The Federal rules restrict any use of the information to criminally investigate or prosecute any alcohol or drug abuse patient.[facility] the event this information is protected by the Federal Confidentiality of Alcohol and Drug Abuse Patient Records regulations: The Federal rules restrict any use of the information to criminally investigate or prosecute any alcohol or drug abuse patient.[facility] the event this information is protected by the Federal Confidentiality of Alcohol and Drug Abuse Patient Records regulations: The Federal rules restrict any use of the information to criminally investigate or prosecute any alcohol or drug abuse patient.[facility] the event this information is protected by the Federal Confidentiality of Alcohol and Drug Abuse Patient Records regulations: The Federal rules restrict any use of the information to criminally investigate or prosecute any alcohol or drug abuse patient.[facility] the event this information is protected by the Federal Confidentiality of Alcohol and Drug Abuse Patient Records regulations: The Federal rules restrict any use of the information to criminally investigate or prosecute any alcohol or drug abuse patient.[facility] the event this information is protected by the Federal Confidentiality of Alcohol and Drug Abuse Patient Records regulations: The Federal rules restrict any use of the information to criminally investigate or prosecute any alcohol or drug abuse patient.[facility] the event this information is protected by the Federal Confidentiality of Alcohol and Drug Abuse Patient Records regulations: The Federal rules restrict any use of the information to criminally investigate or prosecute any alcohol or drug abuse patient.[facility] the event this information is protected by the Federal Confidentiality of Alcohol and Drug Abuse Patient Records regulations: The Federal rules restrict any use of the information to criminally investigate or prosecute any alcohol or drug abuse patient.[facility] the event this information is protected by the Federal Confidentiality of Alcohol and Drug Abuse Patient Records regulations: The Federal rules restrict any use of the information to criminally investigate or prosecute any alcohol or drug abuse patient.[facility] the event this information is protected by the Federal Confidentiality of Alcohol and Drug Abuse Patient Records regulations: The Federal rules restrict any use of the information to criminally investigate or prosecute any alcohol or drug abuse patient.[facility] the event this information is protected by the Federal Confidentiality of Alcohol and Drug Abuse Patient Records regulations: The Federal rules restrict any use of the information to criminally investigate or prosecute any alcohol or drug abuse patient.[facility] the event this information is protected by the Federal Confidentiality of Alcohol and Drug Abuse Patient Records regulations: The Federal rules restrict any use of the information to criminally investigate or prosecute any alcohol or drug abuse patient.[facility] the event this information is protected by the Federal Confidentiality of Alcohol and Drug Abuse Patient Records regulations: The Federal rules restrict any use of the information to criminally investigate or prosecute any alcohol or drug abuse patient.[facility] the event this information is protected by the Federal Confidentiality of Alcohol and Drug Abuse Patient Records regulations: The Federal rules restrict any use of the information to criminally investigate or prosecute any alcohol or drug abuse patient.[facility] the event this information is protected by the Federal Confidentiality of Alcohol and Drug Abuse Patient Records regulations: The Federal rules restrict any use of the information to criminally investigate or prosecute any alcohol or drug abuse patient.[facility] the event this information is protected by the Federal Confidentiality of Alcohol and Drug Abuse Patient Records regulations: The Federal rules restrict any use of the information to criminally investigate or prosecute any alcohol or drug abuse patient.[facility] Reason for Visit (unrecogniz ed section and [...] urine stream Procedures CONSULT TO UROLOGY OFFICE/OUTPATIENT [facility] MDM 60-74 MINUTES Silas Lewis, LAZARO.[facility] [address] [place] [address] Referral ID Status Reason Start Date Expiration Date V isits Requested Visits Authorized [id number] Closed PCP Requested Referral 03/19/2022 03/19/2023 1 [...] CT Specialty Diagnoses / Procedures Referred By Contac t Referred To Contact CT IMAGING Diagnoses Decreased urine stream Calcium oxalate crystals in urine Bilateral flank pain Procedures CT FLANK WO IVCON CT ABD & PELVIS W/O CONTRAST Coyner, Mary J, [employer].[facility] [address] [place] [address] [place] [id number] Referral ID Status Reason Start Date Expiration Date V isits Requested Visits Authorized [id number] Closed Auto-Generate d Referral 05/07/2022 06/06/2023 1 1 Reason Comments Patient Update Mother concerned as pt does not want to do any ADL's, has questions about trying to get guardianship Reason Onset Date Comments Refill Request 03/24/2023 Reason Onset Date Comments Refill Request 05/22/2023 Reason Comments Acute Visit cold and cough Care Teams (unrecognized sec tion and content) Electrical Cad Designer Relationship Specialty Start Date End Date Daniel Chun MD [address] [place] [address] PCP - General Family Practice 04/23/17 Electrical Cad Designer Relationship Specialty Start Date End Date Daniel Chun MD [address] [place] [address] PCP - General Family Practice 04/23/17 Electrical Cad Designer Relationship Specialty Start Date End Date Daniel Chun MD [address] [place] [address] PCP - General Family Practice 04/23/17 Electrical Cad Designer Relationship Specialty Start Date End Date Daniel Chun MD [address] [place] [address] PCP - General Family Practice 04/23/17 Electrical Cad Designer Relationship Specialty Start Date End Date Daniel Chun MD [address] [place] [address] PCP - General Family Medicine 04/23/17 Electrical Cad Designer Relationship Specialty Start Date End Date Daniel Chun MD [address] [place] [address] PCP - General Family Medicine 04/23/17 Electrical Cad Designer Relationship Specialty Start Date End Date Daniel Chun MD [address] [place] [address] PCP - General Family Medicine 04/23/17 Electrical Cad Designer Relationship Specialty Start Date End Date Daniel Chun MD [address] [place] [address] PCP - General Family Medicine 04/23/17 Electrical Cad Designer Relationship Specialty Start Date End Date Daniel Chun MD [address] [place] [address] PCP - General Family Medicine 04/23/17 Electrical Cad Designer Relationship Specialty Start Date End Date Daniel Chun MD [address] [place] [address] PCP - General Family Medicine 04/23/17 Electrical Cad Designer Relationship Specialty Start Date End Date Daniel Chun MD [address] [place] [address] PCP - General Family Medicine 04/23/17 Electrical Cad Designer Relationship Specialty Start Date End Date Daniel Chun MD [address] [place] [address] PCP - General Family Medicine 04/23/17 Electrical Cad Designer Relationship Specialty Start Date End Date Daniel Chun MD [address] [place] [address] PCP - General Family Medicine 04/23/17 Electrical Cad Designer Relationship Specialty Start Date End Date Daniel Chun MD [address] [place] [address] PCP - General Family Medicine 04/23/17 Electrical Cad Designer Relationship Specialty Start Date End Date Daniel Chun MD [address] [place] [address] PCP - General Family Medicine 04/23/17 Electrical Cad Designer Relationship Specialty Start Date End Date Daniel Chun MD [address] [place] [address] PCP - General Family Medicine 04/23/17 Electrical Cad Designer Relationship Specialty Start Date End Date Daniel Chun MD [address] [place] [address] PCP - General Family Medicine 04/23/17 Electrical Cad Designer Relationship Specialty Start Date End Date Daniel Chun MD [address] [place] [address] PCP - General Family Medicine 04/23/17 Electrical Cad Designer Relationship Specialty Start Date End Date Daniel Chun MD [address] [place] [address] PCP - General Family Medicine 04/23/17 Electrical Cad Designer Relationship Specialty Start Date End Date Daniel Chun MD [address] [place] [address] PCP - General Family Medicine 04/23/17 Electrical Cad Designer Relationship Specialty Start Date End Date Daniel Chun MD [address] [place] [address] PCP - General Family Medicine 04/23/17 Electrical Cad Designer Relationship Specialty Start Date End Date Daniel Chun MD [address] [place] [address] PCP - General Family Medicine 04/23/17 Electrical Cad Designer Relationship Specialty Start Date End Date Daniel Chun MD [address] [place] [address] PCP - General Family Medicine 04/23/17 Electrical Cad Designer Relationship Specialty Start Date End Date Daniel Chun MD [address] [place] [address] PCP - General Family Medicine 04/23/17 Electrical Cad Designer Relationship Specialty Start Date End Date Daniel Chun MD [address] [place] [address] PCP - General Family Medicine 04/23/17 Electrical Cad Designer Relationship Specialty Start Date End Date Daniel Chun MD [address] [place] [address] PCP - General Family Medicine 04/23/17 Electrical Cad Designer Relationship Specialty Start Date End Date Daniel Chun MD [address] [place] [address] PCP - General Family Medicine 04/23/17 Electrical Cad Designer Relationship Specialty Start Date End Date Daniel Chun MD [address] [place] [address] PCP - General Family Medicine 04/23/17 Electrical Cad Designer Relationship Specialty Start Date End Date Daniel Chun MD [address] [place] [address] PCP - General Family Medicine 04/23/17 FOR [...] BE BASED ON THE PRIMARY CLINICAL RECORDS. [facility] [employer] [facility]. provides no warranty or guarantee of the accuracy or completeness of information in this document.
[2023-06-08 17:07] LABS: KEPPRA (LEVETIRACETAM) 28.7 ug/mL (10.0-40.0)
== END | disposition home or self-care (01) ==
PROVIDERS: PCP Family Medicine; Referring Provider Psychiatry & Neurology Neurology; Visit Provider Psychiatry & Neurology Neurology
DX: G40.919 Epilepsy, unspecified, intractable, without status epilepticus (principal)
CPT/HCPCS: 80177; 80201

== ENCOUNTER 2023-07-08 15:49 | Emergency (ER) | payer MEDICARE, MEDICAID, SELFPAY ==
[2023-07-08 15:51] VITALS: BP 125/87; PULSE 88; RESP 18; TEMP 36.6; O2SAT 97; BMI 55.0
--- NOTE | 2023-07-08 16:36 | EKG12_ITS ---
Test Reason : SEIZURES Blood Pressure : / mmHG Vent. Rate : 079 BPM Atrial Rate : 079 BPM P-R Int : 156 ms QRS Dur : 086 ms QT Int : 372 ms P-R-T Axes : 032 -02 016 degrees QTc Int : 426 ms Normal sinus rhythm Cannot rule out Anterior infarct , age undetermined Abnormal ECG Confirmed by Clark Robles ([id number]), editor continuity and script MELLISA DE LA ROSA ([id number]) on 07/09/2023 10:50:22 AM Referred By: Confirmed By:Clark Robles
--- NOTE | 2023-07-08 16:52 | EDS_ITS ---
HPI History of Present Illness Chief Complaint: Seizure Detail of Chief Complaint: Reported seizure yesterday and today Informant: patient Onset/Context/Timing Onset: Today and Yesterday Context: Sudden Onset Timing: Intermittent Quality: Witnessed event today at [email or web address] unwitnessed yesterday Current Severity: Gone Maximum Severity: Moderate Worsened by: Potentially standing for prolonged period of time today Relieved by: Not applicable Associated Symptoms Associated Symptoms: nausea, diaphoresis, pallor no postictal state Narrative Narrative: Patient is a 42-year-old woman with known history of seizures. She is on multiple anticonvulsant meds. She states she is compliant. The nurse informed that she was considering reducing her pets. She was questioning if she has and she stated no. Patient had an unwitnessed presumed seizure event yesterday. She states she felt warm apparently felt sweaty and nauseous prior to blacking out . Patient states she had been sitting for prolonged period of time. There was no incontinence of urine or stool. She did not bite her tongue. She not have a headache. Today's episode occurred at [email or web address]. She was standing for prolonged period time she apparently was noted to be pale and diaphoretic. She felt that her vision became black she felt nauseous and warm. There was no incontinence. There was no postictal state per witnesses at [email or web address]. Her history is limited because she is cognitively impaired. She presently denies headache. Denies double vision, blurred vision loss of vision. Denies ringing or ears decreased hearing. Denies trouble with speech or swallowing. She denies neck pain. She denies paresthesia, anesthesia or motor weakness in her upper or lower extremity. She denies abdominal pain. She denies vomiting or diarrhea. Denies black or maroon-colored stool. She denies dysuria, frequency, urgency or hematuria. Patient states this has been happening recently. She has not followed up with her neurologist. She has never had a table tilt test. Prior similar symptoms: No Recent Illness/Hospitalization: Yes [facility] Medical History Abnormal stress test Acute bilateral otitis media Acute bronchitis Adjustment disorder with depressed mood Chest pain Chronic factitious illness with physical symptoms Conversion disorder Dyspnea on exertion Generalized seizure disorder GERD (gastroesophageal reflux disease) History of asthma History of mental retardation Myalgia and myositis PCOS (polycystic ovarian syndrome) PND (paroxysmal nocturnal dyspnea) Schizophrenia Seizure Home Medications cetirizine 10 mg tablet 10 mg PO DAILY 02/11/19 [History Last Taken Unknown] iloperidone 4 mg tablet 4 mg PO QHS BIPOLAR 02/11/19 [History Last Taken 06/02/19] lacosamide 200 mg tablet 400 mg PO BID SEIZURES 02/11/19 [History Last Taken 06/03/19] multivitamin 1 tab PO DAILY 02/11/19 [History Last Taken 06/03/19] topiramate 200 mg tablet (Topamax) 400 mg PO BID SEIZURES 02/11/19 [History Last Taken 06/03/19] citalopram 20 mg tablet 20 mg PO DAILY 02/23/19 [History Last Taken 06/03/19] albuterol sulfate 90 mcg/actuation aerosol inhaler 2 puff inhalation Q4H PRN PRN Wheezing ##1 05/07/19 [Rx Last Taken 05/29/19] paliperidone palmitate 234 mg/1.5 mL intramuscular syringe 234 mg IM QMONTH 06/03/19 [History Last Taken 05/25/19] ibuprofen 600 mg tablet 600 mg PO Q6H PRN PRN Pain 1-10 Or Fever #20 tabs 06/16/20 [Rx Last Taken Unknown] benztropine 1 mg tablet 1 mg PO .COMPLEX 01/30/22 [History Last Taken Unknown] levetiracetam 500 mg tablet 750 mg PO BID 01/30/22 [History Last Taken Unknown] montelukast 10 mg tablet 10 mg PO DAILY 01/30/22 [History Last Taken Unknown] zonisamide 100 mg capsule 200 mg PO BID 01/30/22 [History Last Taken Unknown] benzonatate 100 mg capsule 200 mg (2 x 100 mg) PO TID PRN cough #30 caps 02/11/22 [Rx Last Taken Unknown] ibuprofen 200 mg capsule 200 mg PO Q6H PRN pain #30 caps 02/11/22 [Rx Last Taken Unknown] Allergy/AdvReac Type Severity Reaction Status Date / Time chlorpheniramine Allergy Intermediate seizure Verified 07/08/23 15:50 [From [employer] DayQuil] dextromethorphan Allergy Intermediate seizure Verified 07/08/23 15:50 [From [employer] DayQuil] phenylpropanolamine Allergy Intermediate seizure Verified 07/08/23 15:50 [From [facility] DayQuil] pseudoephedrine Allergy Intermediate seizure Verified 07/08/23 15:50 [From [employer] DayQuil] azithromycin Allergy Other Verified 07/08/23 15:50 [From Zithromax [facility]-Johnny] cephalexin Allergy Unknown Verified 07/08/23 15:50 doxycycline Allergy Nausea Verified 07/08/23 15:50 guaifenesin [From Mucinex] Allergy Other Verified 07/08/23 15:50 latex Allergy Rash Verified 07/08/23 15:50 oseltamivir [From Tamiflu] Allergy Unknown Verified 07/08/23 15:50 risperidone [From Risperdal] Allergy Other Verified 07/08/23 15:50 strawberry Allergy Hives Verified 07/08/23 15:50 valdecoxib [From Bextra] Allergy Rash Verified 07/08/23 15:50 Family History Mother Asthma Father Heart disease Seizures Brother Seizures Sister Myocardial infarction Heart disease Seizures Grandmother Diabetes CVA (cerebral vascular accident) Social History Smoking Status: Never smoker alcohol intake: never substance use type: does not use caffeine: Yes Type: carbonated beverages ROS ROS ED Constitutional Constitutional ED: Denies chills, fever(s), subjective, sweats or weight loss Eyes Eyes: Denies blurry vision, change in vision or diplopia ENT ENT ED: Denies ear pain, rhinorrhea or sore throat Cardiovascular Cardiovascular: Denies chest pain, orthopnea, palpitations, paroxysmal nocturnal dyspnea or racing heartbeat Respiratory/Chest Respiratory/Chest: Denies cough, dyspnea, dyspnea on exertion, orthopnea or paroxysmal nocturnal dyspnea Gastrointestinal Gastrointestinal: Reports nausea; Denies abdominal pain, diarrhea, melena or vomiting Genitourinary Genitourinary ED: Denies dysuria, hematuria or urinary frequency Musculoskeletal Musculoskeletal: Denies arthralgias or myalgias Integumentary Denies rash Neurologic Neurologic: Denies headache(s) or paresthesias Psychiatric Psychiatric: Reports depression; Denies anxiety Hematologic/Lymphatic Hematologic/Lymphatic: Reports systems reviewed and no addt'l complaints, except as documented EXAM Physical Exam Const Vital Signs: 07/08/23 15:51 07/08/23 18:00 07/08/23 18:16 Temperature 98 F Temperature Source Oral Pulse Rate 88 83 92 Pulse Rate [Lying] Pulse Rate [Sitting (for 1 minute prior to obtaining)] Pulse Rate [Standing (for 1 minute prior to obtaining)] Respiratory Rate 18 18 28 H Blood Pressure 125/87 H 116/76 117/79 Blood Pressure [Lying] Blood Pressure [Sitting (for 1 minute prior to obtaining)] Blood Pressure [Standing (for 1 minute prior to obtaining)] Blood Pressure Mean 99 89 91 Blood Pressure Mean [Lying] Blood Pressure Mean [Sitting (for 1 minute prior to obtaining)] Blood Pressure Mean [Standing (for 1 minute prior to obtaining)] Pulse Ox 97 95 98 Oxygen Delivery Method Room Air Room Air Room Air 07/08/23 18:51 Temperature Temperature Source Pulse Rate Pulse Rate [Lying] 89 Pulse Rate [Sitting (for 1 minute prior to obtaining)] 90 Pulse Rate [Standing (for 1 minute prior to obtaining)] 81 Respiratory Rate Blood Pressure Blood Pressure [Lying] 117/79 Blood Pressure [Sitting (for 1 minute prior to obtaining)] 132/86 H Blood Pressure [Standing (for 1 minute prior to obtaining)] 132/89 H Blood Pressure Mean Blood Pressure Mean [Lying] 91 Blood Pressure Mean [Sitting (for 1 minute prior to obtaining)] 101 Blood Pressure Mean [Standing (for 1 minute prior to obtaining)] 103 Pulse Ox Oxygen Delivery Method Positive well nourished, well developed and obese Constitutional Narrative: Patient's BMI is 55. She is not well-groomed. General Appearance ED: well developed and NAD; Negative for cyanotic or diaphoretic Nutritional Appearance: obese HEENT Reports moist mucous membranes HEENT Narrative: Head is atraumatic and normocephalic. Ears normal. External auditory canal normal. TMs normal. Nares patent. Uvula midline. Posterior pharynx is normal. There is no deviation with protrusion. Eyes PERRL and EOMs intact bilaterally General Eye ED: Negative for pale conjunctiva or scleral icterus Neck no lymphadenopathy, supple and no JVD Chest Wall inspection of chest normal and palpation of chest normal Resp normal respiratory effort and clear to auscultation bilaterally Cardio regular rate, regular rhythm, S1 normal heart sound, S2 normal heart sound and no murmurs GI normal to inspection, nondistended, normoactive bowel sounds, non-tender, non- distended and no masses GI Narrative: Unable to determine patient has hepatosplenomegaly or mass due to body habitus. Palpation: soft Back/Spine Back/Spine Narrative: Inspection of the back is normal. There is no evidence of trauma. Extremity normal to inspection General Extremety ED: Yes edema; Negative for tenderness General Extremity: edema Neuro oriented x3, CN's II-XII intact bilaterally and no sensory deficits noted Neuro Narrative: Gait was observed and normal. There is no dysmetria. There is no clonus or Babinski sign. Sensorium / Orientation: alert Psych Mood & Affect: depressed Skin no rashes or lesions noted, no wounds and skin turgor normal General Skin Exam: elasticity normal; Negative for jaundice MDM MDM MDM Narrative Medical decision making narrative: Based on the fact per witnesses that she was pale, diaphoretic complained of nausea warmth and had no postictal state suspect patient had a vasovagal syncopal spell. This would be her second and 24 hours. She appears had other episodes that she thought was seizures that may have represented a vasovagal syncopal episode. If workup is negative we will contact Dr. Hamlin who is on- call for cardiology for possible outpatient table tilt test after his evaluation. History & Record Review Additional record(s) reviewed:: Prior inpatient record (Seen by cardiology for chest pain, Dr. Jacobs), Prior outpatient record (Outpatient pulmonary visit by Dr. Camarillo and [employer] February 17, 2023 and April 2023. She was seen for hypersomnolence.), Prior ED visit (Seen for breakthrough seizure September 18, 2022.) and Prior labs Lab Data Labs: Laboratory Results - last 24 hr 07/08/23 07/08/23 07/08/23 16:30 16:30 17:46 WBC Cancelled 10.6 Corrected WBC Cancelled RBC Cancelled 4.71 Hgb Cancelled 13.6 Hct Cancelled 43.5 MCV Cancelled 92.4 MCH Cancelled 28.9 MCHC Cancelled 31.3 L RDW Std Deviation Cancelled 45.5 H RDW Coeff of Zahra Cancelled 13.3 Plt Count Cancelled 272 MPV Cancelled 10.0 Immature Gran % (Auto) Cancelled 0.500 Neut % (Auto) Cancelled 73.9 H Lymph % (Auto) Cancelled 16.9 L [place] % (Auto) Cancelled 8.5 Eos % (Auto) Cancelled 0.0 Baso % (Auto) Cancelled 0.2 Absolute Neuts (auto) Cancelled 7.8 H Absolute Lymphs (auto) Cancelled 1.79 Total Counted Cancelled Neutrophils % (Manual) Cancelled Band Neutrophils % Cancelled Lymphocytes % (Manual) Cancelled Monocytes % (Manual) Cancelled Eosinophils % (Manual) Cancelled Basophils % (Manual) Cancelled Metamyelocytes % Cancelled Myelocytes % Cancelled Promyelocytes % Cancelled Blast Cells % Cancelled Plasma Cell % (Manual) Cancelled Other Cells % Cancelled Nucleated RBC % Cancelled 0 Nucleated RBCs/100 WBC Cancelled Differential Comment Cancelled Diff Path Review Cancelled Hypersegmented Neuts Cancelled Atypical Lymphocytes Cancelled Reactive Lymphocytes Cancelled Smudge Cells Cancelled Toxic Granulation Cancelled Toxic Vacuolation Cancelled Dohle Bodies Cancelled Shantel Rods Cancelled Platelet Estimate Cancelled Plt Morphology Comment Cancelled RBC Morphology Cancelled Cancelled Polychromasia Cancelled Hypochromasia Cancelled Basophilic Stippling Cancelled Anisocytosis Cancelled Microcytosis Cancelled Macrocytosis Cancelled Spherocytes Cancelled Sickle Cells Cancelled Target Cells Cancelled Tear Drop Cells Cancelled Ovalocytes Cancelled Stomatocytes Cancelled Guerra-Eccles Bodies Cancelled Fidelity Cells Cancelled Bite Cells Cancelled Crenated Cell Cancelled Acanthocytes (Spur) Cancelled Rouleaux Cancelled Schistocytes Cancelled Sodium Cancelled 140 Potassium Cancelled 3.9 Chloride Cancelled 114 H Carbon Dioxide Cancelled 20.0 L Anion Gap Cancelled 6 BUN Cancelled 8 Creatinine Cancelled 0.95 Estim Creat Clear Calc Cancelled 117.01 Est GFR (MDRD) Af Amer Cancelled 83 Est GFR (MDRD) Non-Af Cancelled 69 BUN/Creatinine Ratio Cancelled 8.4 L Glucose Cancelled 95 Calcium Cancelled 8.8 Total Bilirubin Cancelled 0.30 AST Cancelled 18 ALT Cancelled 18 Alkaline Phosphatase Cancelled 95 Total Protein Cancelled 7.1 Albumin Cancelled 3.2 Globulin Cancelled 3.9 Albumin/Globulin Ratio Cancelled 0.8 L Valproic Acid Cancelled < 3 L Pelvic acid level was nondetectable. Med list was changed after mother called in. She is not on valproic acid and would explain why it is nondetected. Management Discussion w/another healthcare provider: [employer] (Since patient had 2 syncopal spells in the last 24 hours and suspect these are vasovagal in his head report other episodes that were not brought to the attention of healthcare professional will contact Dr. Hamlin for follow-up and possible table tilt test.) Treatment and Re-Evaluation :: Patient is had no cardiac event during her ED stay. Will notify Dr. Hamlin reasons for follow-up. Will not hold patient's discharge at this time. Discharge Plan Triage Chief Complaint: Seizure ED Provider: Kevin Montero Dx/Rx/DC Orders Clinical Impression: Syncope, vasovagal, History of mental retardation, Generalized seizure disorde r, Morbid obesity Instructions: ED Fainting, Uncertain Cause Prescriptions: No Action citalopram 20 mg tablet 20 mg PO DAILY benztropine 1 mg tablet 1 mg PO .COMPLEX Rx Instructions: 1 mg orally 1 and 1/2 tab by mouth in the am and 1 tab by mouth pm; cetirizine 10 mg tablet 10 mg PO DAILY iloperidone 4 mg tablet 4 mg PO QHS topiramate [Topamax] 200 mg tablet 400 mg PO BID Rx Instructions: Must be BRAND name lacosamide 200 mg tablet 400 mg PO BID multivitamin Tablet 1 tab PO DAILY zonisamide 100 mg capsule 200 mg PO BID levetiracetam 500 mg tablet 750 mg PO BID montelukast 10 mg tablet 10 mg PO DAILY benzonatate 100 mg capsule 200 mg PO TID PRN (Reason: cough) Qty: 30 0RF ibuprofen 200 mg capsule 200 mg PO Q6H PRN (Reason: pain) Qty: 30 0RF albuterol sulfate 1 INHALER inhaler 2 puff inhalation Q4H PRN PRN (Reason: Wheezing) Qty: 1 0RF paliperidone palmitate 234 mg/1.5 mL syringe 234 mg IM QMONTH ibuprofen 600 MG tablet 600 mg PO Q6H PRN PRN (Reason: Pain 1-10 Or Fever) Qty: 20 0RF Primary Care Provider: Kenneth Tan Referrals: David Rodriguez MD [Med Staff - Active Staff] - 5-7 Days Kenneth Tan MD [Primary Care Provider] - Disposition Disposition: Home, Self Care
[2023-07-08 18:00] VITALS: BP 116/76; PULSE 83; RESP 18; O2SAT 95
[2023-07-08 18:03] LABS: Absolute Lymphocyte Count 1.79 X10^3/uL (0.83-4.51); Absolute Neutrophil Count 7.8 X10^3/uL (2.0-7.7); Basophil# 0.02 X10^3/uL; Basophil% 0.2 % (0-1); Hematocrit 43.5 % (37-47); Hemoglobin 13.6 g/dL (12.0-15.0); Lymphocyte # 1.79 X10^3/ul (0.83-4.51); Lymphocyte % 16.9 % (19-41); Mean Corp Hgb Conc 31.3 g/dL (32-36); Mean Corpuscular Hgb 28.9 pg (27.0-32.0); Mean Corpuscular Volume 92.4 fL (81-99); Monocyte% 8.5 % (0-10); NRBC Flagged by Analyzer 0 % (0-5); Neutrophil # 7.81 X10^3/uL (2.7-7.7); Neutrophil % 73.9 % (47-70); Platelet Count 272 K/mm3 (150-450); RBC Distribution Width CV 13.3 % (11.6-14.6); RBC Distribution Width SD 45.5 fl (35.1-43.9); Red Blood Count 4.71 M/mm3 (4.2-5.4); White Blood Count 10.6 K/mm3 (4.4-11.0)
[2023-07-08 18:16] VITALS: BP 117/79; PULSE 92; RESP 28; O2SAT 98
[2023-07-08 18:18] LABS: ALB/GLOB Ratio 0.8 RATIO (0.9-2.4); AST(SGOT) 18 U/L (15-37); Alanine Aminotransfer ALT/SGPT 18 U/L (13-56); Albumin, Serum 3.2 g/dL (3.2-5.0); Alkaline Phosphatase 95 U/L (45-117); Anion Gap 6 (5-15); BUN 8 mg/dL (7-18); BUN/Creat Ratio 8.4 RATIO (10-20); Calcium,Total 8.8 mg/dL (8.5-10.1); Chloride 114 mmol/L (98-107); Creatinine, Serum 0.95 mg/dL (0.55-1.02); EST Glomerular Filtration Rate 69 mL/min (>60); Est Glom Filt Rate - Afr Amer 83 mL/min (>60); Estimated Creatinine Clearance 117.01 ml/min; Globulin 3.9 g/dL (2.2-4.2); Glucose 95 mg/dL (74-106); Potassium 3.9 mmol/L (3.5-5.1); Protein, Total 7.1 g/dL (6.4-8.2); Sodium Level 140 mmol/L (136-145)
[2023-07-08 18:32] LABS: Valproic Acid (Depakene) Level < 3 ug/mL (50-100)
[2023-07-08 18:51] VITALS: BP 117/79; BP 132/86; BP 132/89; PULSE 81; PULSE 89; PULSE 90
--- NOTE | 2023-07-08 18:55 | ED.RN ---
mother called in for update.
--- NOTE | 2023-07-08 18:55 | ED.RN ---
mom states seizure meds recently changed.
[2023-07-08 20:07] VITALS: BP 131/55; PULSE 92; RESP 28; TEMP 36.6; O2SAT 98
== END 2023-07-08 20:09 | disposition home or self-care (01) ==
PROVIDERS: Emergency Provider Emergency Medicine; PCP Family Medicine; Visit Provider Emergency Medicine
DX: R55 Syncope and collapse (principal); Z68.43 Body mass index [BMI] 50.0-59.9, adult; E66.01 Morbid (severe) obesity due to excess calories; G40.309 Generalized idiopathic epilepsy and epileptic syndromes, not intractable, without status epilepticus; R11.0 Nausea; F79 Unspecified intellectual disabilities; Z79.899 Other long term (current) drug therapy; K21.9 Gastro-esophageal reflux disease without esophagitis; F32.A Depression, unspecified
CPT/HCPCS: 36415; 80053; 80164; 85025; 93005; 99285; A4216

== ENCOUNTER 2023-08-31 17:32 | Emergency (ER) | payer MEDICARE, MEDICAID, SELFPAY ==
[2023-08-31 17:45] VITALS: BP 136/89; PULSE 81; RESP 16; TEMP 36.6; O2SAT 99; BMI 53.7
[2023-08-31 19:32] VITALS: BP 130/80; PULSE 87; RESP 18; O2SAT 97
--- NOTE | 2023-08-31 19:51 | EDS_ITS ---
<Statement entered by Justine Trinidad MD - 08/31/23 22:35> I have personally performed a face to face assessment of the patient and have reviewed the ROLO Note. Patient presents secondary to concerns for bronchitis and UTI. She reports increasing difficulty with urination and some mild dysuria. She states this has been ongoing for a year or more, but seems to be worsening recently. She is concerned that she may need a catheter. Patient also complains of cough. She does describe significant acid reflux and is no longer on medication for this at home. Patient sitting upright in bed no acute distress. Nontoxic-appearing. Head and neck examination unremarkable. Heart is regular rate and rhythm. Lung sounds are grossly clear, but diminished at bases. Abdomen is soft, obese, nontender. 2 view chest x-ray per my interpretation reveals no evidence of focal infiltrate. Radiology interpretation reviewed and agrees. Patient had a pre and postvoid bladder scan which indicates no evidence of significant retention. Urinalysis reveals no evidence of infection and urine test is negative. Test results are discussed with the patient. I did advise her that her cough may be secondary to her reflux. We will treat her with omeprazole. Return instructions provided. HPI History of Present Illness Chief Complaint: Complaint Narrative Narrative: Patient is a 43-year-old female with history of morbid obesity, seizure disorder, mental retardation who presents to the emergency department for complaints of dysuria, cough. Patient states that she had difficulty urinating however she states this has been going on for years. However he states has been worse over the last couple days. She is concerned she might need a catheter. She also states that she might have bronchitis. Patient dates she has been coughing, feeling warm and hot over the last couple days. Patient did come in by ambulance. [facility] Medical History Abnormal stress test Acute bilateral otitis media Acute bronchitis Adjustment disorder with depressed mood Chest pain Chronic factitious illness with physical symptoms Conversion disorder Dyspnea on exertion Generalized seizure disorder GERD (gastroesophageal reflux disease) History of asthma History of mental retardation Myalgia and myositis PCOS (polycystic ovarian syndrome) PND (paroxysmal nocturnal dyspnea) Schizophrenia Seizure Home Medications cetirizine 10 mg tablet 10 mg PO DAILY 02/11/19 [History Last Taken Unknown] iloperidone 4 mg tablet 4 mg PO QHS BIPOLAR 02/11/19 [History Last Taken 06/02/19] lacosamide 200 mg tablet 400 mg PO BID SEIZURES 02/11/19 [History Last Taken 06/03/19] multivitamin 1 tab PO DAILY 02/11/19 [History Last Taken 06/03/19] topiramate 200 mg tablet (Topamax) 400 mg PO BID SEIZURES 02/11/19 [History Last Taken 06/03/19] citalopram 20 mg tablet 20 mg PO DAILY 02/23/19 [History Last Taken 06/03/19] albuterol sulfate 90 mcg/actuation aerosol inhaler 2 puff inhalation Q4H PRN PRN Wheezing ##1 05/07/19 [Rx Last Taken 05/29/19] paliperidone palmitate 234 mg/1.5 mL intramuscular syringe 234 mg IM QMONTH 06/03/19 [History Last Taken 05/25/19] ibuprofen 600 mg tablet 600 mg PO Q6H PRN PRN Pain 1-10 Or Fever #20 tabs 06/16/20 [Rx Last Taken Unknown] benztropine 1 mg tablet 1 mg PO .COMPLEX 01/30/22 [History Last Taken Unknown] levetiracetam 500 mg tablet 750 mg PO BID 01/30/22 [History Last Taken Unknown] montelukast 10 mg tablet 10 mg PO DAILY 01/30/22 [History Last Taken Unknown] zonisamide 100 mg capsule 200 mg PO BID 01/30/22 [History Last Taken Unknown] benzonatate 100 mg capsule 200 mg (2 x 100 mg) PO TID PRN cough #30 caps 02/11/22 [Rx Last Taken Unknown] ibuprofen 200 mg capsule 200 mg PO Q6H PRN pain #30 caps 02/11/22 [Rx Last Taken Unknown] omeprazole 40 mg capsule,delayed release 40 mg PO DAILY #30 caps 08/31/23 [Rx Last Taken Unknown] Allergy/AdvReac Type Severity Reaction Status Date / Time chlorpheniramine Allergy Intermediate seizure Verified 08/31/23 17:47 [From [employer] DayQuil] dextromethorphan Allergy Intermediate seizure Verified 08/31/23 17:47 [From [employer] DayQuil] phenylpropanolamine Allergy Intermediate seizure Verified 08/31/23 17:47 [From [employer] DayQuil] pseudoephedrine Allergy Intermediate seizure Verified 08/31/23 17:47 [From [employer] DayQuil] azithromycin Allergy Other Verified 08/31/23 17:47 [From Zithromax Z-Johnny] cephalexin Allergy Unknown Verified 08/31/23 17:47 doxycycline Allergy Nausea Verified 08/31/23 17:47 guaifenesin [From Mucinex] Allergy Other Verified 08/31/23 17:47 latex Allergy Rash Verified 08/31/23 17:47 oseltamivir [From Tamiflu] Allergy Unknown Verified 08/31/23 17:47 risperidone [From Risperdal] Allergy Other Verified 08/31/23 17:47 strawberry Allergy Hives Verified 08/31/23 17:47 valdecoxib [From Bextra] Allergy Rash Verified 08/31/23 17:47 Family History Mother Asthma Father Heart disease Seizures Brother Seizures Sister Myocardial infarction Heart disease Seizures Grandmother Diabetes CVA (cerebral vascular accident) Social History Smoking Status: Never smoker alcohol intake: never substance use type: does not use caffeine: Yes Type: carbonated beverages ROS ROS ED ROS Narrative Constitutional: Negative for fever, chills, weight loss, weakness Eyes: Negative for vision loss, vision change, double vision ENT: Negative for any sore throat, ear pain, congestion Cardiovascular: Negative for any chest pain, tightness, palpitations Respiratory: Negative for any sputum production, hemoptysis, dyspnea, dyspnea on exertion, orthopnea. Positive for cough Gastrointestinal: Negative for any abdominal pain, nausea, vomiting, diarrhea, constipation, blood in stool, blood in vomit : Negative for any urinary frequency, blood in urine. Positive for urinary retention, dysuria Muscle skeletal: Negative for any neck pain, back pain Neurological: Negative for any headache, syncope, dizziness Skin: Negative for any rashes, itching, abrasions, lacerations Psychiatric: Negative for any depression, anxiety, stress, suicidal ideation, homicidal ideation Hematologic: Negative for any excessive bruising, easy bleeding EXAM Physical Exam Narrative Exam Narrative: Vital signs reviewed. HEET: Head normocephalic atraumatic, TMs clear bilaterally. Posterior pharynx is clear, moist mucous membranes. Nares clear bilaterally. Neck: Supple with no lymphadenopathy or tenderness. No signs of meningismus. Cardiac: Regular rate and rhythm no murmurs gallops or rubs, equal peripheral pulses bilaterally. Respiratory: Secondary to body habitus, was difficult to auscultate lungs, lungs clear to auscultation bilaterally. No chest tenderness. Abdomen: Soft, nontender, nondistended. Secondary to body habitus it was difficult to perform a palpation examination. No abdominal bruit or pulsatile masses. No hepatosplenomegaly Extremities: No peripheral edema, no signs of gross trauma or deformity. Active full range of motion of all extremities. Neuro: Cranial nerves II through XII intact, no focal neurological deficits. Skin: Clean dry and intact with no rash, purpura, petechiae, vesicles or pustules. Backs/flank: No CVA tenderness, no midline spinal tenderness, no deformity. Psych: Normal mood and affect. No SI, HI or acute psychosis. Const Vital Signs: 08/31/23 17:45 08/31/23 19:32 Temperature 98 F Temperature Source Temporal Pulse Rate 81 87 Respiratory Rate 16 18 Blood Pressure 136/89 H 130/80 H Blood Pressure Mean 104 96 Pulse Ox 99 97 Oxygen Delivery Method Room Air Room Air Positive well nourished, well developed and obese General Appearance ED: well developed Nutritional Appearance: obese MDM MDM Lab Data Labs: Laboratory Results - last 24 hr 08/31/23 20:04 Urine Color Yellow Urine Clarity Clear Urine pH 7.0 Ur Specific [place] 1.005 Urine Protein Negative Urine Glucose (UA) Normal Urine Ketones Negative Urine Occult Blood Negative Urine Nitrite Negative Urine Bilirubin Negative Urine Urobilinogen Normal Ur Leukocyte Esterase 100 H Urine RBC 0 SEEN Urine WBC 0-5 SEEN Ur Squamous Epith Cells 0-5 SEEN Urine Bacteria 0 SEEN Urine Mucus 0 SEEN Urine Yeast RARE Urine Test Negative Radiography Diagnostic Testing: Clinical Impression(s) from Imaging Studies Chest X-Ray 08/31/23 20:05 IMPRESSION: No radiographic evidence of acute cardiopulmonary disease. Electronically Signed: Mario Alberto Gonsalves MD at 20:27 EDT , Treatment and Re-Evaluation :: Differential diagnosis includes however is not limited to: UTI, urinary retention, community-acquired pneumonia, bronchitis, viral syndrome Patient appears to be in no obvious respiratory distress, patient's vital signs are stable, patient looks nontoxic. Patient presents to the emergency department for dysuria as well as cough. Patient will receive a two-view chest x-ray concern for any pneumonia, patient also receive a bladder scan to ensure that she is not retaining, patient received a urinalysis as well as urine to see if there is any urinary tract infection. Patient is eating and drinking normally. All radiologic examinations were read, reviewed by the emergency department attending. From these reads, a plan of care will be put in place. Patient only had 300 cc in her bladder. Patient's urinalysis which she was able to give showed no bacteria seen, 0-5 squamous cells, 0-5 white blood cells, 100 leukocytes, no nitrites. Secondary therapy no bacteria, patient would not be treated for UTI. Patient's chest x-ray two-view shows no radiographic evidence of acute cardiopulmonary disease. At this time, there is no evidence of any UTI, pneumonia. Patient will be given omeprazole 40 mg daily, this is secondary to her other complaint of chest burning and cough. She will need to follow-up outpatient. At this time, is no evidence of UTI pyelonephritis, urinary retention. Patient is using the restroom here. Patient stable for discharge. Discharge Plan Triage Chief Complaint: Complaint ED Midlevel Provider: Cresencio Tran ED Provider: Justine Trinidad Dx/Rx/DC Orders Clinical Impression: Cough, Dysuria, Gastroesophageal reflux disease Instructions: Dysuria, ED GERD (Adult), ED Symptoms Uncertain Cause Prescriptions: New omeprazole 40 mg capsule,delayed release(DR/EC) 40 mg PO DAILY Qty: 30 1RF No Action citalopram 20 mg tablet 20 mg PO DAILY benztropine 1 mg tablet 1 mg PO .COMPLEX Rx Instructions: 1 mg orally 1 and 1/2 tab by mouth in the am and 1 tab by mouth pm; cetirizine 10 mg tablet 10 mg PO DAILY iloperidone 4 mg tablet 4 mg PO QHS topiramate [Topamax] 200 mg tablet 400 mg PO BID Rx Instructions: Must be BRAND name lacosamide 200 mg tablet 400 mg PO BID multivitamin Tablet 1 tab PO DAILY zonisamide 100 mg capsule 200 mg PO BID levetiracetam 500 mg tablet 750 mg PO BID montelukast 10 mg tablet 10 mg PO DAILY benzonatate 100 mg capsule 200 mg PO TID PRN (Reason: cough) Qty: 30 0RF ibuprofen 200 mg capsule 200 mg PO Q6H PRN (Reason: pain) Qty: 30 0RF albuterol sulfate 1 INHALER inhaler 2 puff inhalation Q4H PRN PRN (Reason: Wheezing) Qty: 1 0RF paliperidone palmitate 234 mg/1.5 mL syringe 234 mg IM QMONTH ibuprofen 600 MG tablet 600 mg PO Q6H PRN PRN (Reason: Pain 1-10 Or Fever) Qty: 20 0RF Primary Care Provider: Kenneth Tan Referrals: Kenneth Tan MD [Primary Care Provider] - Activity Restrictions/Additional Instructions: Please use the omeprazole daily in the morning. Maintain hydration. Disposition Disposition: Home, Self Care
--- NOTE | 2023-08-31 20:05 | RAD_ITS ---
INDICATION: cough EXAMINATION/TECHNIQUE: X-RAY - XR Chest 2 Views COMPARISON: None. FINDINGS: LINES/DEVICES: None. LUNGS: No consolidation, edema or effusion. No pneumothorax. MEDIASTINUM AND CARDIOVASCULAR STRUCTURES: Cardiac silhouette not enlarged. Central airways and mediastinal contour are unremarkable. BONES AND SOFT TISSUES: Unremarkable. RAD/Chest PA and Lateral IMPRESSION: No radiographic evidence of acute cardiopulmonary disease. Electronically Signed: Mario Alberto Gonsalves MD at 20:27 EDT ,
[2023-08-31 20:19] LABS: Bacteria 0 SEEN /hpf (None Seen); Mucous, Urine 0 SEEN /hpf (<or=2+); Red Blood Cells-Urine 0 SEEN /hpf (0-5)
[2023-08-31 20:25] LABS: Color, Urine Yellow (Yellow); Glucose, Dipstick Normal (Normal); Ketone-Dipstick Negative (Negative); Leukocyte Esterase-Dipstick 100 /ul (Negative); Nitrite-Dipstick Negative (Negative); Occult Blood-Urine Negative /ul (Negative); Protein-Dipstick Negative (Negative); Specific Gravity, Urine 1.005 (1.002-1.030); Urine Bilirubin Dipstick Negative (Negative); Urine Clarity Clear (Clear); Urine Urobilinogen Normal (Normal)
[2023-08-31 20:57] LABS: Squamous Epithelial Cells - UA 0-5 SEEN /hpf (5-10); White Blood Cells 0-5 SEEN /hpf (0-5); Yeast-Urine RARE /hpf (None Seen)
[2023-08-31 20:59] LABS: Internal QC Validated? YES +Cl - CLEAR BKGD; Pregnancy, Urine Negative Negative
[2023-08-31 21:00] VITALS: BP 144/98; PULSE 89; RESP 18; O2SAT 99
[2023-08-31 21:24] VITALS: BP 136/87; PULSE 74; RESP 18; TEMP 36.1; O2SAT 98
== END 2023-08-31 21:25 | disposition home or self-care (01) ==
PROVIDERS: Nurse Practitioner; Emergency Provider Emergency Medicine; PCP Family Medicine; Visit Provider Emergency Medicine
DX: R30.0 Dysuria (principal); G40.909 Epilepsy, unspecified, not intractable, without status epilepticus; E66.01 Morbid (severe) obesity due to excess calories; K21.9 Gastro-esophageal reflux disease without esophagitis; R05.9 Cough, unspecified; F79 Unspecified intellectual disabilities; Z79.899 Other long term (current) drug therapy
CPT/HCPCS: 71046; 81001; 81025; 99282

== ENCOUNTER → 2023-11-03 | Outpatient (CLI) | payer MEDICARE, MEDICAID, SELFPAY ==
[2023-11-03 15:17] LABS: Absolute Lymphocyte Count 2.02 X10^3/uL (0.83-4.51); Absolute Neutrophil Count 5.8 X10^3/uL (2.0-7.7); Hematocrit 41.8 % (37-47); Hemoglobin 13.5 g/dL (12.0-15.0); Lymphocyte # 2.02 X10^3/ul (0.83-4.51); Lymphocyte % 23.7 % (19-41); Mean Corp Hgb Conc 32.3 g/dL (32-36); Mean Corpuscular Hgb 29.8 pg (27.0-32.0); Mean Corpuscular Volume 92.3 fL (81-99); Monocyte# 0.66 X10^3/uL; Monocyte% 7.7 % (0-10); NRBC Flagged by Analyzer 0 % (0-5); Neutrophil # 5.82 X10^3/uL (2.7-7.7); Neutrophil % 68.2 % (47-70); Platelet Count 260 K/mm3 (150-450); RBC Distribution Width CV 13.2 % (11.6-14.6); RBC Distribution Width SD 44.8 fl (35.1-43.9); Red Blood Count 4.53 M/mm3 (4.2-5.4); White Blood Count 8.5 K/mm3 (4.4-11.0)
[2023-11-03 15:56] LABS: Vitamin B12 314 pg/mL (211-911)
[2023-11-03 15:59] LABS: ALB/GLOB Ratio 0.7 RATIO (0.9-2.4); AST(SGOT) 11 U/L (15-37); Alanine Aminotransfer ALT/SGPT 19 U/L (13-56); Alkaline Phosphatase 101 U/L (45-117); Anion Gap 6 (5-15); BUN 8 mg/dL (7-18); BUN/Creat Ratio 8.7 RATIO (10-20); Calcium,Total 8.7 mg/dL (8.5-10.1); Chloride 113 mmol/L (98-107); Creatinine, Serum 0.92 mg/dL (0.55-1.02); EST Glomerular Filtration Rate 72 mL/min (>60); Est Glom Filt Rate - Afr Amer 87 mL/min (>60); Globulin 4.4 g/dL (2.2-4.2); Glucose 87 mg/dL (74-106); Potassium 3.7 mmol/L (3.5-5.1); Protein, Total 7.4 g/dL (6.4-8.2); Sodium Level 140 mmol/L (136-145); Thyroid Stim Hormone (TSH) 3.21 uIU/mL (0.358-3.74)
[2023-11-06 15:09] LABS: KEPPRA (LEVETIRACETAM) 31.3 ug/mL (10.0-40.0); Topiramate 19.4 ug/mL (2.0-25.0)
[2023-11-09 21:07] LABS: Methylmalonic Acid Bld 104 nmol/L (0-378)
== END | disposition home or self-care (01) ==
PROVIDERS: PCP Family Medicine; Referring Provider Physician Assistant; Visit Provider Physician Assistant
DX: G40.919 Epilepsy, unspecified, intractable, without status epilepticus (principal); G47.10 Hypersomnia, unspecified; Z79.899 Other long term (current) drug therapy
CPT/HCPCS: 36415; 80053; 80177; 80201; 82306; 82607; 82746; 83921; 84443; 85025

== ENCOUNTER 2023-12-06 19:34 | Emergency (ER) | payer MEDICARE, MEDICAID, SELFPAY ==
[2023-12-06 19:36] VITALS: BP 128/91; PULSE 85; RESP 12; TEMP 36; O2SAT 100; BMI 53.8
--- NOTE | 2023-12-06 21:02 | ED.VIS.FEGU ---
HPI HPI - Female History of Present Illness Chief Complaint: Vag Bleeding Informant: patient Pain Pain: Positive for Pelvic Pain Context: Gradual Onset Timing: Intermittent Quality: Positive for Cramping Current Severity: Gone Maximum Severity: Mild Bleeding Issue: Positive for Vaginal bleeding Onset: Days Context: Gradual Onset Timing: Intermittent Current Severity: Mild Maximum Severity: Mild Associated Symptoms Associated Symptoms: Negative for Dysuria or Frequency Narrative Narrative: 43-year-old female history of schizophrenia, PCOS, seizures and developmental delay. States that for the last 3 days she has had mild vaginal bleeding with some mild cramping. Currently she is pain-free. Denies any sexual intercourse or instrumentation. She has not had menstrual period for years. She is not on any blood thinners. Prior similar symptoms: No Recent Illness/Hospitalization: No PFSH PFSH Medical History Edema Abnormal stress test Acute bilateral otitis media Acute bronchitis Seizure PND (paroxysmal nocturnal dyspnea) Dyspnea on exertion Schizophrenia Chest pain PCOS (polycystic ovarian syndrome) Myalgia and myositis GERD (gastroesophageal reflux disease) Conversion disorder Chronic factitious illness with physical symptoms Adjustment disorder with depressed mood Generalized seizure disorder History of mental retardation History of asthma Home Medications ?Medication ?Instructions ?Recorded ?Last Taken ?Type cetirizine 10 mg tablet 10 mg PO DAILY 02/11/19 Unknown History iloperidone 4 mg tablet 4 mg PO QHS BIPOLAR 02/11/19 06/02/19 History lacosamide 200 mg tablet 400 mg PO BID SEIZURES 02/11/19 06/03/19 History multivitamin 1 tab PO DAILY 02/11/19 06/03/19 History topiramate 200 mg tablet (Topamax) 400 mg PO BID SEIZURES 02/11/19 06/03/19 History citalopram 20 mg tablet 20 mg PO DAILY 02/23/19 06/03/19 History albuterol sulfate 90 mcg/actuation 2 puff inhalation Q4H PRN PRN 05/07/19 05/29/19 Rx aerosol inhaler Wheezing ##1 ibuprofen 600 mg tablet 600 mg PO Q6H PRN PRN Pain 1-10 Or 06/16/20 Unknown Rx Fever #20 tabs benztropine 1 mg tablet 1 mg PO .COMPLEX 01/30/22 Unknown History montelukast 10 mg tablet 10 mg PO DAILY 01/30/22 Unknown History zonisamide 100 mg capsule 200 mg PO BID 01/30/22 Unknown History benzonatate 100 mg capsule 200 mg (2 x 100 mg) PO TID PRN 02/11/22 Unknown Rx cough #30 caps ibuprofen 200 mg capsule 200 mg PO Q6H PRN pain #30 caps 02/11/22 Unknown Rx cyclobenzaprine 10 mg tablet 10 mg PO TID 11/12/23 Unknown History fluticasone 250 mcg-salmeterol 50 1 ea inhalation BID 11/12/23 Unknown History mcg/dose blistr powdr for inhalation levetiracetam 750 mg tablet 1,500 mg PO BID 11/12/23 Unknown History (Keppra) metoprolol succinate 25 mg 25 mg PO QDAY 11/12/23 Unknown History tablet,extended release 24 hr Allergy/AdvReac Type Severity Reaction Status Date / Time chlorpheniramine (From Vicks Allergy Intermediate seizure Verified 12/06/23 19:35 DayQuil) dextromethorphan (From [facility]icks Allergy Intermediate seizure Verified 12/06/23 19:35 DayQuil) phenylpropanolamine (From Allergy Intermediate seizure Verified 12/06/23 19:35 Vicks DayQuil) pseudoephedrine (From Vicks Allergy Intermediate seizure Verified 12/06/23 19:35 DayQuil) azithromycin (From Zithromax Allergy Other Verified 12/06/23 19:35 Z-Johnny) cephalexin Allergy Unknown Verified 12/06/23 19:35 doxycycline Allergy Nausea Verified 12/06/23 19:35 guaifenesin (From Mucinex) Allergy Other Verified 12/06/23 19:35 latex Allergy Rash Verified 12/06/23 19:35 oseltamivir (From Tamiflu) Allergy Unknown Verified 12/06/23 19:35 risperidone (From Risperdal) Allergy Other Verified 12/06/23 19:35 strawberry Allergy Hives Verified 12/06/23 19:35 valdecoxib (From Bextra) Allergy Rash Verified 12/06/23 19:35 Family History Mother Asthma Father Heart disease Seizures Brother Seizures Sister Myocardial infarction Heart disease Seizures Grandmother Diabetes CVA (cerebral vascular accident) Social History Smoking Status: Never smoker alcohol intake: never substance use type: does not use caffeine: Yes Type: carbonated beverages ROS ROS ED ROS Narrative Denies recent illness. Constitutional Constitutional ED: Denies chills or fever(s) Eyes Eyes: Denies blurry vision ENT ENT ED: Denies ear pain Cardiovascular Cardiovascular: Denies chest pain Respiratory/Chest Respiratory/Chest: Denies cough Gastrointestinal Gastrointestinal: Denies abdominal pain, diarrhea, nausea or vomiting Genitourinary Genitourinary ED: Denies dysuria or hematuria Musculoskeletal Musculoskeletal: Denies arthralgias Integumentary Denies abscess Neurologic Neurologic: Denies headache(s) Psychiatric Psychiatric: Denies anxiety or depression Allergic/Immunologic Allergic/Immunologic ED: Denies mouth swelling, tongue swelling or urticaria EXAM Physical Exam Narrative Exam Narrative: Well-appearing 43-year-old female. Vital signs stable afebrile. No acute distress. No family present in room. H EENT exam unremarkable. Mild alopecia. Lungs clear. Heart regular rhythm rate about 80 no murmur. Abdomen soft nontender. Normal bowel sounds no peritoneal signs. Moving all 4 extremities. Nontender no edema. No bruising. Neck nontender. She is awake and alert. Const Vital Signs: 12/06/23 19:36 12/06/23 21:34 12/06/23 23:00 Temperature 96.8 F L Temperature Source Temporal Pulse Rate 85 78 81 Respiratory Rate 12 18 18 Blood Pressure 128/91 H 132/76 H 98/60 Blood Pressure Mean 103 94 72 Pulse Ox 100 95 Oxygen Delivery Method Room Air Positive well nourished, well developed and obese; Negative for cachectic, contractures or unkempt General Appearance ED: well developed and NAD; Negative for unkempt, cachectic, contractures or pallor Nutritional Appearance: obese; Negative for cachectic HEENT Reports moist mucous membranes Negative for trauma or tenderness Eyes PERRL and EOMs intact bilaterally Neck no lymphadenopathy, supple and no JVD Chest Wall inspection of chest normal and palpation of chest normal Resp normal respiratory effort and clear to auscultation bilaterally Effort and Inspection: Negative for pain with movement Auscultation: Negative for rales, rhonchi, wheezes or diminished lung sounds Cardio regular rate, regular rhythm, S1 normal heart sound, no murmurs and no JVD GI normal to inspection, nondistended, normoactive bowel sounds, soft to palpation, non-tender, non-distended and no masses Palpation: Negative for tender, guarding or rigid Back/Spine no CVA tenderness Extremity normal to inspection and full ROM General Extremety ED: Negative for edema or tenderness General Extremity: Negative for edema Neuro CN's II-XII intact bilaterally Neuro Narrative: Awake and alert. Answering questions following commands. Sensorium / Orientation: alert, oriented to person and oriented to place Motor Exam: strength 5/5 throughout Psych mental status grossly normal Appearance: Negative for unkempt Mood & Affect: Negative for depressed, anxious or tearful Skin no rashes or lesions noted and no wounds General Skin Exam: Negative for jaundice or pallor Rashes: No rashes noted MDM MDM MDM Narrative Medical decision making narrative: 43-year-old female reported vaginal bleeding. She has not had a menstrual period for years. She is on no blood thinners. Pelvic exam and labs will be obtained. Multiple repeat exams patient is resting comfortably. Stable vital signs. I asked her several times she does not want me to do a pelvic exam. She has not had one for years if she has ever had 1. She currently does not have an IRRIGATION ENGINEER. When the nurses did the straight cath for urine she had no active bleeding. She had a very small amount of blood when she wiped after try to give a urine sample. She is not having any pelvic or abdominal pain currently at 11:45 PM. Patient be discharged to home with outpatient follow-up with IRRIGATION ENGINEER. She understands she needs a pelvic exam done to determine the cause of her bleeding. History & Record Review Discussion w/independent historian: Patient Additional record(s) reviewed:: Prior inpatient record, Prior outpatient record, Prior ED visit and Prior labs Lab Data Attestation: I reviewed the patient's lab results. Lab results narrative: Serum test negative. CBC shows no acute abnormality. White count of 10. H&H 13.1 and 40. Platelets 264. No acute changes from prior labs. Urinalysis showed no acute signs of infection. No white or red cells. No bacteria. No nitrates. Labs: Laboratory Results - last 24 hr 12/06/23 12/06/23 12/06/23 21:15 21:15 22:49 WBC Cancelled 10.8 Corrected WBC Cancelled RBC Cancelled 4.41 Hgb Cancelled 13.1 Hct Cancelled 40.8 MCV Cancelled 92.5 MCH Cancelled 29.7 MCHC Cancelled 32.1 RDW Std Deviation Cancelled 44.6 H RDW Coeff of Zahra Cancelled 13.2 Plt Count Cancelled 264 MPV Cancelled 10.6 Immature Gran % (Auto) Cancelled 0.400 Neut % (Auto) Cancelled 67.0 Lymph % (Auto) Cancelled 24.9 [place] % (Auto) Cancelled 7.6 Eos % (Auto) Cancelled 0.0 Baso % (Auto) Cancelled 0.1 Absolute Neuts (auto) Cancelled 7.3 Absolute Lymphs (auto) Cancelled 2.69 Total Counted Cancelled Neutrophils % (Manual) Cancelled Band Neutrophils % Cancelled Lymphocytes % (Manual) Cancelled Monocytes % (Manual) Cancelled Eosinophils % (Manual) Cancelled Basophils % (Manual) Cancelled Metamyelocytes % Cancelled Myelocytes % Cancelled Promyelocytes % Cancelled Blast Cells % Cancelled Plasma Cell % (Manual) Cancelled Other Cells % Cancelled Nucleated RBC % Cancelled 0 Nucleated RBCs/100 WBC Cancelled Differential Comment Cancelled Diff Path Review Cancelled Hypersegmented Neuts Cancelled Atypical Lymphocytes Cancelled Reactive Lymphocytes Cancelled Smudge Cells Cancelled Toxic Granulation Cancelled Toxic Vacuolation Cancelled Dohle Bodies Cancelled Shantel Rods Cancelled Platelet Estimate Cancelled Plt Morphology Comment Cancelled RBC Morphology Cancelled Cancelled Polychromasia Cancelled Hypochromasia Cancelled Basophilic Stippling Cancelled Anisocytosis Cancelled Microcytosis Cancelled Macrocytosis Cancelled Spherocytes Cancelled Sickle Cells Cancelled Target Cells Cancelled Tear Drop Cells Cancelled Ovalocytes Cancelled Stomatocytes Cancelled Guerra-Lohman Bodies Cancelled [place]ly Cells Cancelled Bite Cells Cancelled Crenated Cell Cancelled Acanthocytes (Spur) Cancelled Rouleaux Cancelled Schistocytes Cancelled Serum , Qual NEGATIVE Urine Color Urine Clarity Urine pH Ur Specific [place] Urine Protein Urine Glucose (UA) Urine Ketones Urine Occult Blood Urine Nitrite Urine Bilirubin Urine Urobilinogen Ur Leukocyte Esterase Urine RBC Urine WBC Ur Squamous Epith Cells Urine Bacteria Urine Mucus 12/06/23 23:07 WBC Corrected WBC RBC Hgb Hct MCV MCH MCHC RDW Std Deviation RDW Coeff of Zahra Plt Count MPV Immature Gran % (Auto) Neut % (Auto) Lymph % (Auto) [place] % (Auto) Eos % (Auto) Baso % (Auto) Absolute Neuts (auto) Absolute Lymphs (auto) Total Counted Neutrophils % (Manual) Band Neutrophils % Lymphocytes % (Manual) Monocytes % (Manual) Eosinophils % (Manual) Basophils % (Manual) Metamyelocytes % Myelocytes % Promyelocytes % Blast Cells % Plasma Cell % (Manual) Other Cells % Nucleated RBC % Nucleated RBCs/100 WBC Differential Comment Diff Path Review Hypersegmented Neuts Atypical Lymphocytes Reactive Lymphocytes Smudge Cells Toxic Granulation Toxic Vacuolation Dohle Bodies Shantel Rods Platelet Estimate Plt Morphology Comment RBC Morphology Polychromasia Hypochromasia Basophilic Stippling Anisocytosis Microcytosis Macrocytosis Spherocytes Sickle Cells Target Cells Tear Drop Cells Ovalocytes Stomatocytes Guerra-Lohman Bodies Anju Cells Bite Cells Crenated Cell Acanthocytes (Spur) Rouleaux Schistocytes Serum , Qual Urine Color Yellow Urine Clarity Clear Urine pH 7.0 Ur Specific [place] 1.010 Urine Protein Negative Urine Glucose (UA) Normal Urine Ketones Negative Urine Occult Blood 10 H Urine Nitrite Negative Urine Bilirubin Negative Urine Urobilinogen Normal Ur Leukocyte Esterase Negative Urine RBC 0-5 SEEN Urine WBC 0 SEEN Ur Squamous Epith Cells 5-10 SEEN Urine Bacteria 0 SEEN Urine Mucus 0 SEEN Discharge Plan Triage Chief Complaint: Vag Bleeding Other Complaint: Abd Pain ED Provider: Nacho Olivia Dx/Rx/DC Orders Clinical Impression: Vaginal bleeding, Generalized seizure disorder Instructions: ED Dysfunctional Uterine Bleeding Prescriptions: No Action citalopram 20 mg tablet 20 mg PO DAILY benztropine 1 mg tablet 1 mg PO .COMPLEX Rx Instructions: 1 mg orally 1 and 1/2 tab by mouth in the am and 1 tab by mouth pm; cetirizine 10 mg tablet 10 mg PO DAILY iloperidone 4 mg tablet 4 mg PO QHS topiramate [Topamax] 200 mg tablet 400 mg PO BID Rx Instructions: Must be BRAND name lacosamide 200 mg tablet 400 mg PO BID multivitamin Tablet 1 tab PO DAILY zonisamide 100 mg capsule 200 mg PO BID montelukast 10 mg tablet 10 mg PO DAILY benzonatate 100 mg capsule 200 mg PO TID PRN (Reason: cough) Qty: 30 0RF ibuprofen 200 mg capsule 200 mg PO Q6H PRN (Reason: pain) Qty: 30 0RF cyclobenzaprine 10 mg tablet 10 mg PO TID fluticasone propion-salmeterol 250-50 mcg/dose blister with device 1 ea inhalation BID metoprolol succinate 25 mg tablet extended release 24 hr 25 mg PO QDAY levetiracetam [Keppra] 750 mg tablet 1,500 mg PO BID albuterol sulfate 1 INHALER inhaler 2 puff inhalation Q4H PRN PRN (Reason: Wheezing) Qty: 1 0RF ibuprofen 600 MG tablet 600 mg PO Q6H PRN PRN (Reason: Pain 1-10 Or Fever) Qty: 20 0RF Primary Care Provider: Kenneth Tan Referrals: Kenneth Tan MD [Primary Care Provider] - Margie Rosario MD [Med Staff - Active Staff] - 1-2 Weeks Activity Restrictions/Additional Instructions: Call and [facility]up with [facility] to get an IRRIGATION ENGINEER. You need to have a pelvic exam done they have female physicians there that can do your exam. This will help determine what is causing the bleeding. Print Language: Marshallese Disposition Disposition: Home, Self Care
[2023-12-06 21:34] VITALS: BP 132/76; PULSE 78; RESP 18; O2SAT 95
[2023-12-06 21:47] LABS: Internal QC Validated? YES +Cl - CLEAR BKGD; Pregnancy, Serum, hCG Quali. NEGATIVE Negative
[2023-12-06 23:00] VITALS: BP 98/60; PULSE 81; RESP 18
[2023-12-06 23:13] LABS: Bacteria 0 SEEN /hpf (None Seen); Mucous, Urine 0 SEEN /hpf (<or=2+); White Blood Cells 0 SEEN /hpf (0-5)
[2023-12-06 23:49] LABS: Absolute Lymphocyte Count 2.69 X10^3/uL (0.83-4.51); Absolute Neutrophil Count 7.3 X10^3/uL (2.0-7.7); Basophil# 0.01 X10^3/uL; Basophil% 0.1 % (0-1); Hematocrit 40.8 % (37-47); Hemoglobin 13.1 g/dL (12.0-15.0); Lymphocyte # 2.69 X10^3/ul (0.83-4.51); Lymphocyte % 24.9 % (19-41); Mean Corp Hgb Conc 32.1 g/dL (32-36); Mean Corpuscular Hgb 29.7 pg (27.0-32.0); Mean Corpuscular Volume 92.5 fL (81-99); Mean Platelet Vol. 10.6 fl (6.2-12.0); Monocyte# 0.82 X10^3/uL; Monocyte% 7.6 % (0-10); NRBC Flagged by Analyzer 0 % (0-5); Neutrophil # 7.26 X10^3/uL (2.7-7.7); Platelet Count 264 K/mm3 (150-450); RBC Distribution Width CV 13.2 % (11.6-14.6); RBC Distribution Width SD 44.6 fl (35.1-43.9); Red Blood Count 4.41 M/mm3 (4.2-5.4); White Blood Count 10.8 K/mm3 (4.4-11.0)
[2023-12-06 23:58] LABS: Color, Urine Yellow (Yellow); Glucose, Dipstick Normal (Normal); Ketone-Dipstick Negative (Negative); Leukocyte Esterase-Dipstick Negative /ul (Negative); Nitrite-Dipstick Negative (Negative); Occult Blood-Urine 10 /ul (Negative); Protein-Dipstick Negative (Negative); Urine Bilirubin Dipstick Negative (Negative); Urine Clarity Clear (Clear); Urine Urobilinogen Normal (Normal)
[2023-12-07 00:06] LABS: Red Blood Cells-Urine 0-5 SEEN /hpf (0-5); Squamous Epithelial Cells - UA 5-10 SEEN /hpf (5-10)
[2023-12-07 00:14] VITALS: PULSE 76; RESP 18; TEMP 36.2; O2SAT 95
== END 2023-12-07 00:15 | disposition home or self-care (01) ==
PROVIDERS: Emergency Provider Emergency Medicine; PCP Family Medicine; Visit Provider Emergency Medicine
DX: G40.309 Generalized idiopathic epilepsy and epileptic syndromes, not intractable, without status epilepticus (principal); N93.9 Abnormal uterine and vaginal bleeding, unspecified; K21.9 Gastro-esophageal reflux disease without esophagitis
CPT/HCPCS: 36415; 81001; 84703; 85025; 99284; P9612; A4216

== ENCOUNTER 2024-01-07 11:33 | Emergency (ER) | payer MEDICARE, MEDICAID, SELFPAY ==
[2024-01-07 11:33] VITALS: BP 126/85; PULSE 96; RESP 14; TEMP 36.6; O2SAT 96
--- NOTE | 2024-01-07 13:14 | EDS_ITS ---
HPI History of Present Illness Chief Complaint: Seizure [facility] Medical History Edema Abnormal stress test Acute bilateral otitis media Acute bronchitis Seizure PND (paroxysmal nocturnal dyspnea) Dyspnea on exertion Schizophrenia Chest pain PCOS (polycystic ovarian syndrome) Myalgia and myositis GERD (gastroesophageal reflux disease) Conversion disorder Chronic factitious illness with physical symptoms Adjustment disorder with depressed mood Generalized seizure disorder History of mental retardation History of asthma Home Medications ?Medication ?Instructions ?Recorded ?Last Taken ?Type cetirizine 10 mg tablet 10 mg PO DAILY 02/11/19 Unknown History iloperidone 4 mg tablet 4 mg PO QHS BIPOLAR 02/11/19 06/02/19 History lacosamide 200 mg tablet 400 mg PO BID SEIZURES 02/11/19 06/03/19 History multivitamin 1 tab PO DAILY 02/11/19 06/03/19 History topiramate 200 mg tablet (Topamax) 400 mg PO BID SEIZURES 02/11/19 06/03/19 History citalopram 20 mg tablet 20 mg PO DAILY 02/23/19 06/03/19 History albuterol sulfate 90 mcg/actuation 2 puff inhalation Q4H PRN PRN 05/07/19 05/29/19 Rx aerosol inhaler Wheezing ##1 ibuprofen 600 mg tablet 600 mg PO Q6H PRN PRN Pain 1-10 Or 06/16/20 Unknown Rx Fever #20 tabs benztropine 1 mg tablet 1 mg PO .COMPLEX 01/30/22 Unknown History montelukast 10 mg tablet 10 mg PO DAILY 01/30/22 Unknown History zonisamide 100 mg capsule 200 mg PO BID 01/30/22 Unknown History benzonatate 100 mg capsule 200 mg (2 x 100 mg) PO TID PRN 02/11/22 Unknown Rx cough #30 caps ibuprofen 200 mg capsule 200 mg PO Q6H PRN pain #30 caps 02/11/22 Unknown Rx cyclobenzaprine 10 mg tablet 10 mg PO TID 11/12/23 Unknown History fluticasone 250 mcg-salmeterol 50 1 ea inhalation BID 11/12/23 Unknown History mcg/dose blistr powdr for inhalation levetiracetam 750 mg tablet 1,500 mg PO BID 11/12/23 Unknown History (Kejennifer) metoprolol succinate 25 mg 25 mg PO QDAY 11/12/23 Unknown History tablet,extended release 24 hr Allergy/AdvReac Type Severity Reaction Status Date / Time chlorpheniramine (From [facility] Allergy Intermediate seizure Verified 01/07/24 11: 34 DayQuil) dextromethorphan (From [facility] Allergy Intermediate seizure Verified 01/07/24 11:34 DayQuil) phenylpropanolamine (From Allergy Inter[facility]/07[facility]24 11:[facility] pseudoephedrine (From [facility] Allergy Intermediate seizure Verified 01/07/24 11:34 DayQuil) azithromycin (From Zithromax Allergy Other Verified 01/07/24 11:34 Z-Johnny) cephalexin Allergy Unknown Verified 01/07/24 11:34 doxycycline Allergy Nausea Verified 01/07/24 11:34 guaifenesin (From Mucinex) Allergy Other Verified 01/07/24 11:34 latex Allergy Rash Verified 01/07/24 11:34 oseltamivir (From Tamiflu) Allergy Unknown Verified 01/07/24 11:34 risperidone (From Risperdal) Allergy Other Verified 01/07/24 11:34 strawberry Allergy Hives Verified 01/07/24 11:34 valdecoxib (From Bextra) Allergy Rash Verified 01/07/24 11:34 Family History Mother Asthma Father Heart disease Seizures Brother Seizures Sister Myocardial infarction Heart disease Seizures Grandmother Diabetes CVA (cerebral vascular accident) Social History Smoking Status: Never smoker alcohol intake: never substance use type: does not use caffeine: Yes Type: carbonated beverages EXAM Physical Exam Const Vital Signs: 01/07/24 11:33 01/07/24 13:33 01/07/24 15:00 Temperature 98 F Temperature Source Temporal Pulse Rate 96 87 85 Respiratory Rate 14 16 16 Blood Pressure 126/85 H 117/78 117/75 Blood Pressure Mean 98 91 89 Pulse Ox 96 97 98 Oxygen Delivery Method Room Air Room Air 01/07/24 15:48 Temperature 97.5 F L Temperature Source Pulse Rate 88 Respiratory Rate 16 Blood Pressure 119/75 Blood Pressure Mean 89 Pulse Ox 96 Oxygen Delivery Method MDM MDM MDM Narrative Medical decision making narrative: HISTORY OF PRESENT ILLNESS: 43-year-old female with history of seizure and conversion disorder, schizophren ia and developmental delay presents with concern for seizure. Per report patient was found facedown prior to arrival. Patient states she has not been wrapping but notes she is walking upstairs and she fell face forward. Her loved 1 thinks she may have anesthesia. Patient was compliant with antiseizure medication. Denies fevers urinary complaints vomiting or abdominal pain. Denies cough or shortness of breath. REVIEW OF SYSTEMS: Pertinent positives: Seizure Pertinent negatives: Shortness of breath, chest pain PHYSICAL EXAM: Nursing triage notes reviewed, Vital signs reviewed Primary Survey Airway: Intact Breathing: Bilateral breath sounds Circulation: Palpable bilateral femorals, Palpable bilateral radial, Palpable bilateral DP and Palpable bilateral PT Disability / Spine precautions GCS Score: Eye Openin Verbal Response: 5 Motor Response: 6 Secondary Survey Constitutional: Please see MDM Head: Abrasion noted to nasal bridge, midface stable, NO jaw malocclusion, No Cephalohematoma, and No Lacerations noted Eye: Pupils equal round and reactive to light, Extraocular muscles intact and No periorbital ecchymosis or stepoff, no evidence of entrapment ENT: Oropharynx clear, no lacerations, no hemotympanum, no raccoon eyes or bose sign, no nasal septal hematoma Cervical spine / Neck: No cervical spine bony tenderness, crepitance, or stepoff deformity Trachea midline Lungs: Clear to auscultation, No asymmetric rise and No crepitus, no flail chest Cardiac: Regular rate and rhythm and No murmurs Abdomen: Soft, Nontender and No rebound Pelvis: Pelvis stable to compression : No evidence of genital injury Back: No midline bony tenderness to thoracic/lumbar/sacral spines Neuro: At baseline, intact strength and sensation in bilateral upper and lower extremities. 2+ patellar reflexes bilaterally. Extremities: NO gross Deformities Psych: Normal affect Nursing triage notes reviewed, Vital signs reviewed MEDICAL DECISION MAKING: Chief Complaint: Seizure External records reviewed: Prior medications reviewed: On Vimpat, Keppra, topiramate and zonisamide. Reviewed prior ED visit Factors affecting care: As per HPI [facility] Narrative: The patient was initially hemodynamically stable, afebrile and nontoxic- appearing. Primary secondary trauma surveys concerning for the following I considered the following differential diagnosis: ICH, facial fracture, cervical spine fracture, electrolyte disturbance, I obtained a broad lab and imaging workup. ALL IMAGES (IF OBTAINED) HAVE BEEN PERSONALLY REVIEWED AND INTERPRETED BY MYSELF. CT scan of the head, cervical spine show no evidence of acute traumatic injury. Labs are grossly unremarkable. Elevated white blood cell count was noted to have remains unexplained this patient has no focus of infection. Urine test was negative. She is given a dose of Keppra. She is appropriate for discharge home. The patient and/or family, caregivers express understanding. The patient and/or family, caregivers agrees with the plan. Shared decision making: I will have a discussion with the patient and or visitors regarding risk/benefits of further testing or admission. They will be made aware of of the risk/benefits inherent in this decision they will be given the opportunity to voice understanding. Total critical care time today provided was at least 0 minutes. This excludes separately billable procedures. Critical care time (if documented) is secondary to the patient having high probability of clinically significant/life threatening deterioration in the patient's condition which required my urgent intervention. Impression: 1. History of Epilepsy 2. Elevated white blood cell count 3. Concussion Dispo: Discharge home This note was generated with [employer] dictation software. It may contain incorrect words, spelling, and punctuation that were not noted in review of the chart prior to signing. Lab Data Labs: Laboratory Results - last 24 hr 01/07/24 01/07/24 14:35 15:26 WBC 12.0 H RBC 4.65 Hgb 13.5 Hct 42.9 MCV 92.3 MCH 29.0 MCHC 31.5 L RDW Std Deviation 45.1 H RDW Coeff of Zahra 13.3 Plt Count 251 MPV 9.9 Sodium 142 Potassium 3.9 Chloride 114 H Carbon Dioxide 22.0 Anion Gap 6 BUN 7 Creatinine 0.96 Est GFR (MDRD) Af Amer 82 Est GFR (MDRD) Non-Af 68 BUN/Creatinine Ratio 7.3 L Glucose 103 Calcium 8.9 Urine Test Negative Radiography Diagnostic Testing: Clinical Impression(s) from Imaging Studies Brain CT 01/07/24 13:34 IMPRESSION: Normal unenhanced CT scan of the brain. Electronically Signed: Cj Damon MD at 15:05 EDT , Cervical Spine CT 01/07/24 13:34 IMPRESSION: Normal unenhanced CT examination of the cervical spine. Electronically Signed: Cj Damon MD at 15:14 EDT , Facial/Sinus 01/07/24 13:34 IMPRESSION: Normal unenhanced CT of the facial bones. Electronically Signed: Cj Damon MD at 15:04 EDT , Discharge Plan Triage Chief Complaint: Seizure ED Provider: Barrett Dolan Dx/Rx/DC Orders Instructions: Concussion Dc, ED Seizure, Recurrent (Adult) Prescriptions: No Action citalopram 20 mg tablet 20 mg PO DAILY benztropine 1 mg tablet 1 mg PO .COMPLEX Rx Instructions: 1 mg orally 1 and 1/2 tab by mouth in the am and 1 tab by mouth pm; cetirizine 10 mg tablet 10 mg PO DAILY iloperidone 4 mg tablet 4 mg PO QHS topiramate [Topamax] 200 mg tablet 400 mg PO BID Rx Instructions: Must be BRAND name lacosamide 200 mg tablet 400 mg PO BID multivitamin Tablet 1 tab PO DAILY zonisamide 100 mg capsule 200 mg PO BID montelukast 10 mg tablet 10 mg PO DAILY benzonatate 100 mg capsule 200 mg PO TID PRN (Reason: cough) Qty: 30 0RF ibuprofen 200 mg capsule 200 mg PO Q6H PRN (Reason: pain) Qty: 30 0RF cyclobenzaprine 10 mg tablet 10 mg PO TID fluticasone propion-salmeterol 250-50 mcg/dose blister with device 1 ea inhalation BID metoprolol succinate 25 mg tablet extended release 24 hr 25 mg PO QDAY levetiracetam [Keppra] 750 mg tablet 1,500 mg PO BID albuterol sulfate 1 INHALER inhaler 2 puff inhalation Q4H PRN PRN (Reason: Wheezing) Qty: 1 0RF ibuprofen 600 MG tablet 600 mg PO Q6H PRN PRN (Reason: Pain 1-10 Or Fever) Qty: 20 0RF Primary Care Provider: Kenneth Tan Referrals: Kenneth Tan MD [Primary Care Provider] - Activity Restrictions/Additional Instructions: Thank you for trusting us with your care today! You likely suffered a breakthrough seizure. Please take all your antiseizure medicines and follow-up with your neurologist next available appointment. Please take Tylenol (2 pills, 650 mg), ibuprofen (2 pills, 400 mg) every 6 hours as needed for pain and fever control. Please return to the emergency department if your symptoms change or worsen. Please follow with your primary care physician for further outpatient evaluation and management. Print Language: Sinhala Disposition Disposition: Home, Self Care Discharge Date/Time: 01/07/24 15:55
[2024-01-07 13:33] VITALS: BP 117/78; PULSE 87; RESP 16; O2SAT 97
--- NOTE | 2024-01-07 13:34 | CT_ITS ---
STUDY: CT FACIAL BONES WITHOUT CONTRAST REASON FOR EXAM: Female, 43 years old. facial trauma due to a seizure. RADIATION DOSAGE (If Supplied By Facility): CTDIvol = ( 25.01 ) mGy, DLP = ( 436.09 ) mGycm TECHNIQUE: The patient was scanned in a multi detector CT scanner. Sagittal and coronal images were reconstructed. Individualized dose optimization techniques were used for this CT. COMPARISON: None. FINDINGS: Normal soft tissue structures. Normal orbital james and orbital contents. Normal nasal bones and anterior nasal spine. Normal facial bones. There is no demonstrated fracture. Normal visualized paranasal sinuses. CT/Sinus/Facial Bone IMPRESSION: Normal unenhanced CT of the facial bones. Electronically Signed: Cj Damon MD at 15:04 EDT ,
--- NOTE | 2024-01-07 13:34 | CT_ITS ---
STUDY: CT CERVICAL SPINE WITHOUT CONTRAST REASON FOR EXAM: Female, 43 years old. Neck pain following a seizure. RADIATION DOSAGE (If Supplied By Facility): CTDIvol = ( 25.85 ) mGy, DLP = ( 459.32 ) mGycm TECHNIQUE: High resolution transaxial imaging was performed without contrast material. Sagittal and coronal images were reconstructed. Individualized dose optimization techniques were used for this CT. COMPARISON: None FINDINGS: Normal craniovertebral junction. Normal anterior atlantoaxial articulation. Normal odontoid process. There is straightening of the normal cervical lordosis. Normal vertebral bodies and posterior osseous elements. C2-3: Normal endplates. Normal disc height and morphology. Normal central canal and intervertebral neuroforamina. C3-4: Normal endplates. Normal disc height and morphology. Normal central canal and intervertebral neuroforamina. C4-5: Normal endplates. Normal disc height and morphology. Normal central canal and intervertebral neuroforamina. C5-6: Normal endplates. Normal disc height and morphology. Normal central canal and intervertebral neuroforamina. C6-7: Normal endplates. Normal disc height and morphology. Normal central canal and intervertebral neuroforamina. C7-T1: Normal endplates. Normal disc height and morphology. Normal central canal and intervertebral neuroforamina. Normal visualized soft tissue structures. CT/Spine Cervical without Contras IMPRESSION: Normal unenhanced CT examination of the cervical spine. Electronically Signed: Cj Damon MD at 15:14 EDT ,
--- NOTE | 2024-01-07 13:34 | CT_ITS ---
STUDY: CT BRAIN WITHOUT CONTRAST REASON FOR EXAM: Female, 43 years old. Head trauma due to a seizure. RADIATION DOSAGE (If Supplied By Facility): CTDIvol = ( 47.06 ) mGy, DLP = ( 837.39 ) mGycm TECHNIQUE: Transaxial CT imaging of the brain was performed without administration of intravenous contrast material. Individualized dose optimization techniques were used for this CT. COMPARISON: Comparison is made with prior study dated June 03, 2019. FINDINGS: Normal soft tissue structures. Normal calvarium. Normal size ventricles and extra-axial spaces for the patient''s age. Normal white matter tracts of the cerebral hemispheres. Normal basal ganglia and thalami. Normal brainstem. Normal cerebellum. There is no intracranial hemorrhage. There are no findings of an acute ischemic infarction. Normal visualized paranasal sinuses. CT/Brain/Head without Contrast IMPRESSION: Normal unenhanced CT scan of the brain. Electronically Signed: Cj Damon MD at 15:05 EDT ,
[2024-01-07] MEDS: levETIRAcetam IV 1,500 MG in 0.9% Normal Saline (100mL Bag) 100 ML 460 MG IV (14:38)
[2024-01-07 14:46] LABS: Hematocrit 42.9 % (37-47); Hemoglobin 13.5 g/dL (12.0-15.0); Mean Corp Hgb Conc 31.5 g/dL (32-36); Mean Corpuscular Volume 92.3 fL (81-99); Mean Platelet Vol. 9.9 fl (6.2-12.0); Platelet Count 251 K/mm3 (150-450); RBC Distribution Width CV 13.3 % (11.6-14.6); RBC Distribution Width SD 45.1 fl (35.1-43.9); Red Blood Count 4.65 M/mm3 (4.2-5.4)
[2024-01-07 15:00] VITALS: BP 117/75; PULSE 85; RESP 16; O2SAT 98
[2024-01-07 15:00] LABS: Anion Gap 6 (5-15); BUN 7 mg/dL (7-18); BUN/Creat Ratio 7.3 RATIO (10-20); Calcium,Total 8.9 mg/dL (8.5-10.1); Chloride 114 mmol/L (98-107); Creatinine, Serum 0.96 mg/dL (0.55-1.02); EST Glomerular Filtration Rate 68 mL/min (>60); Est Glom Filt Rate - Afr Amer 82 mL/min (>60); Glucose 103 mg/dL (74-106); Potassium 3.9 mmol/L (3.5-5.1); Sodium Level 142 mmol/L (136-145)
[2024-01-07 15:35] LABS: Internal QC Validated? YES +Cl - CLEAR BKGD; Pregnancy, Urine Negative Negative; Record Kit Lot#,Urine Preg 772476
[2024-01-07 15:48] VITALS: BP 119/75; PULSE 88; RESP 16; TEMP 36.4; O2SAT 96
== END 2024-01-07 15:55 | disposition home or self-care (01) ==
PROVIDERS: Emergency Provider Emergency Medicine; PCP Family Medicine; Referring Provider Emergency Medicine; Visit Provider Emergency Medicine
DX: G40.909 Epilepsy, unspecified, not intractable, without status epilepticus (principal); S06.0X0A Concussion without loss of consciousness, initial encounter; D72.829 Elevated white blood cell count, unspecified; K21.9 Gastro-esophageal reflux disease without esophagitis; J45.909 Unspecified asthma, uncomplicated; S00.31XA Abrasion of nose, initial encounter; W10.9XXA Fall (on) (from) unspecified stairs and steps, initial encounter
CPT/HCPCS: 70450; 70486; 72125; 80048; 81025; 85027; 96365; 99283

== ENCOUNTER 2024-06-08 19:46 | Emergency (ER) | payer MEDICARE, MEDICAID, SELFPAY ==
[2024-06-08] VITALS (21 sets, daily range): BP systolic 101–150; BP diastolic 54–119; PULSE 75–109; RESP 17–32; TEMP 37.1; O2SAT 97–100; BMI 49.6
--- NOTE | 2024-06-08 20:23 | ED.RN ---
This RN went into the patient's room to assess the patient. Upon assessment, the patient had pulled out her NPA and non-rebreather. Airway maintained, no work of breathing, and O2 saturation 99% RA.
--- NOTE | 2024-06-08 20:35 | EX.ED.DYSGE1 ---
HPI History of Present Illness Chief Complaint: Seizure Narrative Narrative: Patient is a 43-year-old female past medical history of PCOS, GERD, seizures on Keppra, mental delay, asthma who presents to the emergency department via EMS with a chief complaint of seizure. According to EMS she had 3 seizures in the last 45 minutes without returning to her baseline. They gave 5 mg of IM Versed prehospital. Patient states that she has not been feeling well for the past few days and has been under a lot of stress as well. PFSH [facility] Medical History Edema Abnormal stress test Acute bilateral otitis media Acute bronchitis Seizure PND (paroxysmal nocturnal dyspnea) Dyspnea on exertion Schizophrenia Chest pain PCOS (polycystic ovarian syndrome) Myalgia and myositis GERD (gastroesophageal reflux disease) Conversion disorder Chronic factitious illness with physical symptoms Adjustment disorder with depressed mood Generalized seizure disorder History of mental retardation History of asthma Home Medications ?Medication ?Instructions ?Recorded ?Last Taken ?Type cetirizine 10 mg tablet 10 mg PO DAILY 02/11/19 Unknown History iloperidone 4 mg tablet 4 mg PO QHS BIPOLAR 02/11/19 06/02/19 History multivitamin 1 tab PO DAILY 02/11/19 06/03/19 History topiramate 200 mg tablet (Topamax) 400 mg PO BID SEIZURES 02/11/19 06/03/19 History citalopram 20 mg tablet 20 mg PO DAILY 02/23/19 06/03/19 History albuterol sulfate 90 mcg/actuation 2 puff inhalation Q4H PRN PRN 05/07/19 05/29/19 Rx aerosol inhaler Wheezing ##1 benztropine 1 mg tablet 1 mg PO .COMPLEX 01/30/22 Unknown History montelukast 10 mg tablet 10 mg PO DAILY 01/30/22 Unknown History zonisamide 100 mg capsule 200 mg PO BID 01/30/22 Unknown History benzonatate 100 mg capsule 200 mg (2 x 100 mg) PO TID PRN 02/11/22 Unknown Rx cough #30 caps cyclobenzaprine 10 mg tablet 10 mg PO TID 11/12/23 Unknown History fluticasone 250 mcg-salmeterol 50 1 ea inhalation BID 11/12/23 Unknown History mcg/dose blistr powdr for inhalation levetiracetam 750 mg tablet 1,500 mg PO BID 11/12/23 Unknown History (Keppra) metoprolol succinate 25 mg 25 mg PO QDAY 11/12/23 Unknown History tablet,extended release 24 hr lacosamide 150 mg tablet (Vimpat) 300 mg PO BID 06/08/24 Unknown History Allergy/AdvReac Type Severity Reaction Status Date / Time chlorpheniramine (From Vicks Allergy Intermediate seizure Verified 06/08/24 19:48 DayQuil) dextromethorphan (From Vicks Allergy Intermediate seizure Verified 06/08/24 19:48 DayQuil) phenylpropanolamine (From Allergy Intermediate seizure Verified 06/08/24 19:48 Vicks DayQuil) pseudoephedrine (From Vicks Allergy Intermediate seizure Verified 06/08/24 19:48 DayQuil) azithromycin (From Zithromax Allergy Other Verified 06/08/24 19:48 Z-Johnny) cephalexin Allergy Unknown Verified 06/08/24 19:48 doxycycline Allergy Nausea Verified 06/08/24 19:48 guaifenesin (From Mucinex) Allergy Other Verified 06/08/24 19:48 latex Allergy Rash Verified 06/08/24 19:48 oseltamivir (From Tamiflu) Allergy Unknown Verified 06/08/24 19:48 risperidone (From Risperdal) Allergy Other Verified 06/08/24 19:48 strawberry Allergy Hives Verified 06/08/24 19:48 valdecoxib (From Bextra) Allergy Rash Verified 06/08/24 19:48 Family History Mother Asthma Father Heart disease Seizures Brother Seizures Sister Myocardial infarction Heart disease Seizures Grandmother Diabetes CVA (cerebral vascular accident) Social History Smoking Status: Never smoker alcohol intake: never substance use type: does not use caffeine: Yes Type: carbonated beverages ROS ROS ED ROS Narrative Constitutional: Denies headache, fever, chills, lightheadedness, dizziness Eyes: Denies change in vision double vision blurry vision Cardiovascular: Denies chest pain or palpitations Respiratory: Denies coughing wheezing shortness of breath Abdomen: Denies abdominal pain nausea vomit diarrhea : Denies any urinary symptoms Neurological: Denies numbness, weakness, tingling complains of seizures noted above Musculoskeletal: Denies back pain Skin: Denies rashes or lesions EXAM Physical Exam Narrative Exam Narrative: General: Patient lying in bed rest comfortably did not appear to be in acute distress Head: Atraumatic, normocephalic Eyes: PERRL bilaterally, EOMI bilaterally, no conjunctival injection noted Neck: Soft, supple, trachea midline Cardiovascular: Regular rate and rhythm Respiratory: Clear to auscultation bilaterally Abdomen: Soft, nondistended, no tenderness palpation Extremities: +4/5 strength noted in the bilateral upper and lower extremities, radial pulses +2/4 in the bilateral extremities Neurological: Patient knew that she was at the hospital and that we are in winter she did remove her nasopharyngeal airway Skin: Warm, dry, intact no rashes or lesions noted Const Vital Signs: 06/08/24 19:49 06/08/24 19:56 06/08/24 20:30 Temperature 98.8 F Temperature Source Axillary Pulse Rate 109 H 93 Respiratory Rate 30 H 18 Blood Pressure 131/54 H 108/81 H Blood Pressure Mean 79 90 Pulse Ox 100 100 Oxygen Delivery Method Non-Rebreather Room Air Oxygen Flow Rate (L/min) 15 06/08/24 21:00 06/08/24 21:30 06/08/24 22:00 Temperature Temperature Source Pulse Rate 90 84 93 Respiratory Rate 20 H 18 18 Blood Pressure 118/86 H 118/86 H 104/78 Blood Pressure Mean 96 96 86 Pulse Ox 100 98 100 Oxygen Delivery Method Room Air Room Air Room Air Oxygen Flow Rate (L/min) 06/08/24 22:30 06/08/24 23:00 06/08/24 23:30 Temperature Temperature Source Pulse Rate 91 88 98 Respiratory Rate 18 18 18 Blood Pressure 115/69 130/87 H 114/85 H Blood Pressure Mean 84 101 94 Pulse Ox 100 100 100 Oxygen Delivery Method Room Air Room Air Room Air Oxygen Flow Rate (L/min) 06/09/24 00:00 Temperature Temperature Source Pulse Rate 76 Respiratory Rate 17 Blood Pressure 111/81 H Blood Pressure Mean 91 Pulse Ox 98 Oxygen Delivery Method Room Air Oxygen Flow Rate (L/min) MDM MDM MDM Narrative Medical decision making narrative: Patient is a 43-year-old female who presented to the emergency department chief complaint of multiple seizures for a total length of 45 minutes without return to baseline. IM Versed was given prehospital by EMS 5 mg as noted above. Upon my assessment here in the emergency department the patient was following commands talking removed her nasal pharyngeal airway herself does not need to be intubated. On the differential diagnose includes but not limited to medication noncompliance, COVID, flu, electrolyte abnormality, intracranial mass, hypothyroidism. Once workup is obtained reviewed she will be reevaluated. Patient be given a 3 g Keppra load. Patient CBC was significant leukocytosis of 15,000, he was 14.2, plate count noted be normal at 292. Patient any normal 140, potassium normal 3.7, creatinine was elevated 1.19 patient does have a lactic acidosis with lactic acid noted be 7.6 is likely from her seizure/multiple seizures. Patient's AST and ALT were 11 and 20 respectively, troponin noted to be normal at less than 3 patient's TSH was 7.93 however free T4 and T3 were normal at 0.89 and 2.7 respectively test negative. Patient urinalysis pending. Patient CT head and brain without contrast showed no acute intracranial normalities. Given the patient is on for antiepileptics and was in status epilepticus earlier this evening she will require transfer. Patient is on Topamax, Keppra, lacosamide, zonisamide called [facility] They are at [facility], [facility] same [facility] no beds will try [facility]. Called and spoke with Dr. Vargas neuro ICU physician who states that the patient does not need an ICU bed. Once again I requested ER to ER transfer to [facility] and they are refusing transfer. Will reach out to [facility]. Talked with hospitalist Dr. Bravo who accept patient for transfer to [facility]. If the patient's condition is to decompensate call [facility] back for an ICU bed. Patient notified all question concerns answered. Lab Data Labs: Laboratory Results - last 24 hr 06/08/24 06/08/24 19:58 22:50 WBC 15.2 H RBC 5.03 Hgb 14.2 Hct 45.5 MCV 90.5 MCH 28.2 MCHC 31.2 L RDW Std Deviation 45.3 H RDW Coeff of Zahra 13.5 Plt Count 292 MPV 10.7 Immature Gran % (Auto) 0.400 Neut % (Auto) 73.6 H Lymph % (Auto) 17.8 L [place] % (Auto) 8.0 Eos % (Auto) 0.1 Baso % (Auto) 0.1 Absolute Neuts (auto) 11.2 H Absolute Lymphs (auto) 2.69 Nucleated RBC % 0 Sodium 140 Potassium 3.7 Chloride 112 H Carbon Dioxide 15.0 L Anion Gap 12 BUN 7 Creatinine 1.19 H Estim Creat Clear Calc 86.78 Est GFR (MDRD) Af Amer 64 Est GFR (MDRD) Non-Af 53 L BUN/Creatinine Ratio 5.9 L Glucose 161 H Lactic Acid 7.6 H* Calcium 8.9 Total Bilirubin 0.20 AST 11 L ALT 20 Alkaline Phosphatase 94 Troponin I High Sens < 3 L Total Protein 7.5 Albumin 3.3 Globulin 4.2 Albumin/Globulin Ratio 0.8 L Lipase 16 L TSH 7.930 H Free T4 0.89 Free T3 pg/dL 2.7 Serum , Qual NEGATIVE Urine Color Yellow Urine Clarity Sl. Cloudy Urine pH 6.5 Ur Specific [place] 1.015 Urine Protein 30 H Urine Glucose (UA) Normal Urine Ketones 5 H Urine Occult Blood 250 H Urine Nitrite Negative Urine Bilirubin Negative Urine Urobilinogen Normal Ur Leukocyte Esterase 25 H Urine RBC 5-10 SEEN Urine WBC 0-5 SEEN Ur Squamous Epith Cells 0-5 SEEN Urine Bacteria 1+ Urine Mucus RARE Radiography Diagnostic Testing: Clinical Impression(s) from Imaging Studies Brain CT 06/08/24 21:01 IMPRESSION: No acute intracranial abnormality. Reading Location: [facility] Discharge Plan Triage Chief Complaint: Seizure ED Provider: Al Argueta Dx/Rx/DC Orders Clinical Impression: Convulsions, status epilepticus, Breakthrough seizure Prescriptions: No Action citalopram 20 mg tablet 20 mg PO DAILY benztropine 1 mg tablet 1 mg PO .COMPLEX Rx Instructions: 1 mg orally 1 and 1/2 tab by mouth in the am and 1 tab by mouth pm; cetirizine 10 mg tablet 10 mg PO DAILY iloperidone 4 mg tablet 4 mg PO QHS topiramate [Topamax] 200 mg tablet 400 mg PO BID Rx Instructions: Must be BRAND name multivitamin Tablet 1 tab PO DAILY zonisamide 100 mg capsule 200 mg PO BID montelukast 10 mg tablet 10 mg PO DAILY benzonatate 100 mg capsule 200 mg PO TID PRN (Reason: cough) Qty: 30 0RF cyclobenzaprine 10 mg tablet 10 mg PO TID fluticasone propion-salmeterol 250-50 mcg/dose blister with device 1 ea inhalation BID metoprolol succinate 25 mg tablet extended release 24 hr 25 mg PO QDAY levetiracetam [Keppra] 750 mg tablet 1,500 mg PO BID albuterol sulfate 1 INHALER inhaler 2 puff inhalation Q4H PRN PRN (Reason: Wheezing) Qty: 1 0RF lacosamide [Vimpat] 150 mg tablet 300 mg PO BID Primary Care Provider: Kenneth Tan Referrals: Kenneth Tan MD [Primary Care Provider] - Print Language: Faroese Disposition Disposition: DC/Tx to Another Type of HCF
[2024-06-08] MEDS: 0.9% Normal Saline (1000mL) 1,000 ML 999 ML IV ×2 (20:40→22:53)
--- NOTE | 2024-06-08 20:41 | ED.RN ---
Upon initial nursing assessment of the patient, the patient would not answer any of this RN's questions, only look and stare at this RN. Upon the physician walking into the room to perform his assessment, the patient was answering the physician's questions clearly.
[2024-06-08 20:42] LABS: Absolute Lymphocyte Count 2.69 X10^3/uL (0.83-4.51); Absolute Neutrophil Count 11.2 X10^3/uL (2.0-7.7); Basophil# 0.01 X10^3/uL; Basophil% 0.1 % (0-1); Eosinophil# 0.01 X10^3/uL; Eosinophils% 0.1 % (0-5); Hematocrit 45.5 % (37-47); Hemoglobin 14.2 g/dL (12.0-15.0); Lymphocyte # 2.69 X10^3/ul (0.83-4.51); Lymphocyte % 17.8 % (19-41); Mean Corp Hgb Conc 31.2 g/dL (32-36); Mean Corpuscular Hgb 28.2 pg (27.0-32.0); Mean Corpuscular Volume 90.5 fL (81-99); Mean Platelet Vol. 10.7 fl (6.2-12.0); Monocyte# 1.21 X10^3/uL; NRBC Flagged by Analyzer 0 % (0-5); Neutrophil # 11.17 X10^3/uL (2.7-7.7); Neutrophil % 73.6 % (47-70); Platelet Count 292 K/mm3 (150-450); RBC Distribution Width CV 13.5 % (11.6-14.6); RBC Distribution Width SD 45.3 fl (35.1-43.9); Red Blood Count 5.03 M/mm3 (4.2-5.4); White Blood Count 15.2 K/mm3 (4.4-11.0)
[2024-06-08 20:50] LABS: Lactic Acid 7.6 mmol/L (0.4-1.9)
[2024-06-08 20:55] LABS: Internal QC Validated? YES +Cl - CLEAR BKGD; Pregnancy, Serum, hCG Quali. NEGATIVE Negative
--- NOTE | 2024-06-08 21:01 | CT_ITS ---
EXAM: CT brain without IV contrast CLINICAL HISTORY: Altered mental status COMPARISON: 01/07/2024 TECHNIQUE: Multiple contiguous axial images through the brain were obtained without the administration of intravenous contrast. Two-dimensional coronal and sagittal reformatted images were reconstructed. Low-dose imaging technique was utilized. FINDINGS: No evidence of acute intracranial hemorrhage, midline shift or mass effect. No definite CT evidence of acute territorial cortical infarction. No hydrocephalus. Cerebral volume is age-appropriate. No depressed calvarial fracture. Paranasal sinuses and mastoid air cells are clear. CT/Brain/Head without Contrast IMPRESSION: No acute intracranial abnormality. Reading Location: [facility]
[2024-06-08 21:08] LABS: ALB/GLOB Ratio 0.8 RATIO (0.9-2.4); AST(SGOT) 11 U/L (15-37); Alanine Aminotransfer ALT/SGPT 20 U/L (13-56); Albumin, Serum 3.3 g/dL (3.2-5.0); Alkaline Phosphatase 94 U/L (45-117); Anion Gap 12 (5-15); BUN 7 mg/dL (7-18); BUN/Creat Ratio 5.9 RATIO (10-20); Calcium,Total 8.9 mg/dL (8.5-10.1); Chloride 112 mmol/L (98-107); Creatinine, Serum 1.19 mg/dL (0.55-1.02); EST Glomerular Filtration Rate 53 mL/min (>60); Est Glom Filt Rate - Afr Amer 64 mL/min (>60); Estimated Creatinine Clearance 86.78 ml/min; Free T3 2.7 pg/mL (2.18-3.98); Globulin 4.2 g/dL (2.2-4.2); Glucose 161 mg/dL (74-106); Lipase 16 U/L (73-393); Potassium 3.7 mmol/L (3.5-5.1); Protein, Total 7.5 g/dL (6.4-8.2); Sodium Level 140 mmol/L (136-145); T4 Free Direct 0.89 ng/dL (0.76-1.46); Troponin-I HS < 3 pg/mL (3.0-54.0)
[2024-06-08] MEDS: NORMAL SALINE 0.9% IV (21:36)
[2024-06-08] MEDS: LEVETIRACETAM IV (21:36)
[2024-06-08 23:07] LABS: Color, Urine Yellow (Yellow); Glucose, Dipstick Normal (Normal); Ketone-Dipstick 5 mg/dl (Negative); Leukocyte Esterase-Dipstick 25 /ul (Negative); Nitrite-Dipstick Negative (Negative); Occult Blood-Urine 250 /ul (Negative); Protein-Dipstick 30 mg/dl (Negative); Specific Gravity, Urine 1.015 (1.002-1.030); Urine Bilirubin Dipstick Negative (Negative); Urine Clarity Sl. Cloudy (Clear); Urine Urobilinogen Normal (Normal); Urine pH 6.5 (5.0 - 8.0)
[2024-06-08 23:20] LABS: Red Blood Cells-Urine 5-10 SEEN /hpf (0-5)
[2024-06-08 23:21] LABS: Bacteria 1+ /hpf (None Seen); Mucous, Urine RARE /hpf (<or=2+); Squamous Epithelial Cells - UA 0-5 SEEN /hpf (5-10); White Blood Cells 0-5 SEEN /hpf (0-5)
--- NOTE | 2024-06-08 23:28 | ED.RN ---
This RN completed the patient's medication reconciliation by discussing the patient's medications with the patient's mother, Kennedi, at this time.
[2024-06-09] VITALS (20 sets, daily range): BP systolic 104–118; BP diastolic 69–91; PULSE 74–98; RESP 0–30; TEMP 36.9; O2SAT 97–100
[2024-06-09 00:31] LABS: Reflex Lactate? Y
[2024-06-09 01:24] LABS: Lactic Acid 1.1 mmol/L (0.4-1.9)
[2024-06-09] MEDS: cycloBENZAPRine HCl 10 MG Tablet PO (06:07)
== END 2024-06-09 07:12 | disposition other institution (70) ==
PROVIDERS: Emergency Provider Emergency Medicine; PCP Family Medicine; Visit Provider Emergency Medicine
DX: G40.901 Epilepsy, unspecified, not intractable, with status epilepticus (principal); K21.9 Gastro-esophageal reflux disease without esophagitis; Z79.899 Other long term (current) drug therapy; J45.909 Unspecified asthma, uncomplicated
CPT/HCPCS: 51702; 70450; 80053; 81001; 83605; 83690; 84439; 84443; 84481; 84484; 84703; 85025; 87631; 93005; 96361; 96365; 99285; A4216

== ENCOUNTER 2024-07-25 15:26 | Outpatient (CLI) | payer MEDICARE, MEDICAID, SELFPAY ==
[2024-07-23 11:26] LABS: Absolute Lymphocyte Count 1.82 X10^3/uL (0.83-4.51); Absolute Neutrophil Count 7.8 X10^3/uL (2.0-7.7); Basophil# 0.01 X10^3/uL; Basophil% 0.1 % (0-1); Hematocrit 45.5 % (37-47); Hemoglobin 14.4 g/dL (12.0-15.0); Lymphocyte # 1.82 X10^3/ul (0.83-4.51); Lymphocyte % 17.6 % (19-41); Mean Corp Hgb Conc 31.6 g/dL (32-36); Mean Corpuscular Hgb 28.7 pg (27.0-32.0); Mean Corpuscular Volume 90.6 fL (81-99); Mean Platelet Vol. 10.8 fl (6.2-12.0); Monocyte# 0.66 X10^3/uL; Monocyte% 6.4 % (0-10); NRBC Flagged by Analyzer 0 % (0-5); Neutrophil # 7.81 X10^3/uL (2.7-7.7); Neutrophil % 75.5 % (47-70); Platelet Count 317 K/mm3 (150-450); RBC Distribution Width CV 13.5 % (11.6-14.6); RBC Distribution Width SD 45.3 fl (35.1-43.9); Red Blood Count 5.02 M/mm3 (4.2-5.4); White Blood Count 10.3 K/mm3 (4.4-11.0)
[2024-07-23 11:40] LABS: Carbamazepine (Tegretol) < 2.0 ug/mL (4.0-12.0)
[2024-07-23 11:44] LABS: Hemoglobin A1c 5.2 % (<=5.6)
[2024-07-23 11:49] LABS: ALB/GLOB Ratio 1.1 RATIO (0.9-2.4); AST(SGOT) 18 U/L (<=31); Alanine Aminotransfer ALT/SGPT 14 U/L (<=34); Albumin, Serum 3.9 g/dL (3.5-5.0); Alkaline Phosphatase 116 U/L (35-104); Anion Gap 12 (5-15); BUN 8 mg/dL (4-19); BUN/Creat Ratio 8.2 RATIO (10-20); Calcium,Total 9.1 mg/dL (7.6-11.0); Carbon Dioxide 18.1 mmol/L (21.0-32.0); Chloride 110 mmol/L (98-108); Cholesterol 166 mg/dL (<=200); EST Glomerular Filtration Rate 72 (>60); Globulin 3.5 g/dL (2.2-4.2); Glucose 96 mg/dL (70-99); High Density Lipoprotein 37 mg/dL; Low Density Lipoprotein Calc. 111 mg/dL; Potassium 4.1 mmol/L (3.3-5.1); Protein, Total 7.4 g/dL (5.9-8.4); Sodium Level 139 mmol/L (133-145); Total Bilirubin 0.25 mg/dL (0.00-1.30); Triglycerides 92 mg/dL; Very Low Density Lipoprotein 18 mg/dL (5-40)
[2024-07-23 12:11] LABS: Iron 61 ug/dL (50-170); Iron Binding Capacity,Unsat 177 ug/dL (228-428)
[2024-07-23 12:27] LABS: Iron Binding Capacity,Total 238 ug/dL (250-450); PERCENT IRON SATURATION 25.6 % (13-59)
[2024-07-25 16:37] LABS: Color, Urine Yellow (Yellow); Glucose, Dipstick Normal (Normal); Ketone-Dipstick Negative (Negative); Leukocyte Esterase-Dipstick 25 /ul (Negative); Nitrite-Dipstick Negative (Negative); Occult Blood-Urine Negative /ul (Negative); Protein-Dipstick Negative (Negative); Urine Bilirubin Dipstick Negative (Negative); Urine Clarity Clear (Clear); Urine Urobilinogen Normal (Normal)
== END 2024-07-25 23:59 | disposition home or self-care (01) ==
LOC: LAB 15:27 → LABSPEC 15:29
PROVIDERS: PCP Family Medicine
DX: R39.198 Other difficulties with micturition (principal); F19.10 Other psychoactive substance abuse, uncomplicated; E55.9 Vitamin D deficiency, unspecified; Z51.81 Encounter for therapeutic drug level monitoring; R53.83 Other fatigue; Z79.899 Other long term (current) drug therapy
CPT/HCPCS: 36415; 80053; 80061; 80156; 81002; 83036; 83540; 83550; 84146; 84443; 85025

== ENCOUNTER 2024-09-10 13:02 | Emergency (ER) | payer MEDICARE, MEDICAID, SELFPAY ==
[2024-09-10 13:09] VITALS: BP 125/73; PULSE 96; RESP 16; TEMP 36.6; O2SAT 100; BMI 46.0
[2024-09-10 13:15] VITALS: BP 125/73; PULSE 96; RESP 16; TEMP 36.6; O2SAT 100
--- NOTE | 2024-09-10 13:50 | ED.VIS.LOWEX ---
HPI History of Present Illness HPI Narrative: Patient presents with left lower extremity pain that has been getting worse over the past month. Patient states she has an infection in her knee. Patient admits to subjective fevers. Patient states she does not have a thermometer at home. Patient states that her pain is sharp and stabbing. Patient states nothing makes it better and nothing makes it worse. Patient denies any paresthesias or weakness. Patient denies any trauma or injury. Chief Complaint: Lower Extremity Injury Informant: patient Onset/Context/Timing Onset: Month(s) (1) Context: Gradual Onset Timing: Continuous Quality of Pain: Sharp and Stabbing Location: Left knee Worsened by: Nothing Relieved by: Nothing Associated Symptoms Associated Symptoms: Negative for Parasthesia or Weakness [facility] History (Updated 09/10/24 @ 15:[address] Harry Arreola, ) Edema Abnormal stress test Acute bilateral otitis media Acute bronchitis Seizure PND (paroxysmal nocturnal dyspnea) Dyspnea on exertion Schizophrenia Chest pain PCOS (polycystic ovarian syndrome) Myalgia and myositis GERD (gastroesophageal reflux disease) Conversion disorder Chronic factitious illness with physical symptoms Adjustment disorder with depressed mood Generalized seizure disorder History of mental retardation History of asthma Home Medications ?Medication ?Instructions ?Recorded ?Last Taken ?Type cetirizine 10 mg tablet 10 mg PO DAILY 02/11/19 Unknown History iloperidone 4 mg tablet 4 mg PO QHS BIPOLAR 02/11/19 06/02/19 History multivitamin 1 tab PO DAILY 02/11/19 06/03/19 History topiramate 200 mg tablet (Topamax) 400 mg PO BID SEIZURES 02/11/19 06/03/19 History citalopram 20 mg tablet 20 mg PO DAILY 02/23/19 06/03/19 History albuterol sulfate 90 mcg/actuation 2 puff inhalation Q4H PRN PRN 05/07/19 05/29/19 Rx aerosol inhaler Wheezing ##1 benztropine 1 mg tablet 1 mg PO QHS 01/30/22 Unknown History montelukast 10 mg tablet 10 mg PO DAILY 01/30/22 Unknown History zonisamide 100 mg capsule 200 mg PO BID 01/30/22 Unknown History benzonatate 100 mg capsule 200 mg (2 x 100 mg) PO TID PRN 02/11/22 Unknown Rx cough #30 caps cyclobenzaprine 10 mg tablet 10 mg PO TID 11/12/23 Unknown History fluticasone 250 mcg-salmeterol 50 1 ea inhalation BID 11/12/23 Unknown History mcg/dose blistr powdr for inhalation levetiracetam 750 mg tablet 1,500 mg PO BID 11/12/23 Unknown History (Keppra) metoprolol succinate 25 mg 25 mg PO QDAY 11/12/23 Unknown History tablet,extended release 24 hr lacosamide 150 mg tablet (Vimpat) 300 mg PO BID 06/08/24 Unknown History benztropine 1 mg tablet 1.5 mg PO DAILY 06/09/24 Unknown History Allergy/AdvReac Type Severity Reaction Status Date / Time chlorpheniramine (From Vicks Allergy Intermediate seizure Verified 09/10/24 13:09 DayQuil) dextromethorphan (From Vicks Allergy Intermediate seizure Verified 09/10/24 13:09 DayQuil) phenylpropanolamine (From Allergy Intermediate seizure Verified 09/10/24 13:09 [facility] DayQuil) pseudoephedrine (From Vicks Allergy Intermediate seizure Verified 09/10/24 13:09 DayQuil) azithromycin (From Zithromax Allergy Other Verified 09/10/24 13:09 Z-Johnny) cephalexin Allergy Unknown Verified 09/10/24 13:09 doxycycline Allergy Nausea Verified 09/10/24 13:09 guaifenesin (From Mucinex) Allergy Other Verified 09/10/24 13:09 latex Allergy Rash Verified 09/10/24 13:09 oseltamivir (From Tamiflu) Allergy Unknown Verified 06/08/24 19:48 risperidone (From Risperdal) Allergy Other Verified 09/10/24 13:09 strawberry Allergy Hives Verified 09/10/24 13:09 valdecoxib (From Bextra) Allergy Rash Verified 09/10/24 13:09 Family History Mother Asthma Father Heart disease Seizures Brother Seizures Sister Myocardial infarction Heart disease Seizures Grandmother Diabetes CVA (cerebral vascular accident) Surgical History (Updated 09/10/24 @ 13:[address] Harry Arreola DO) Hx of removal of cyst Social History Smoking Status: Never smoker alcohol intake: never substance use type: does not use caffeine: Yes Type: carbonated beverages ROS ROS ED Constitutional Constitutional ED: Reports fever(s) and subjective; Denies chills Eyes Eyes: Denies blurry vision or change in vision ENT ENT ED: Denies rhinorrhea or sore throat Cardiovascular Cardiovascular: Reports chest pain; Denies palpitations Respiratory/Chest Respiratory/Chest: Denies cough or dyspnea Gastrointestinal Gastrointestinal: Reports nausea; Denies vomiting Genitourinary Genitourinary ED: Denies dysuria or hematuria Musculoskeletal Musculoskeletal: Denies back pain or neck pain Integumentary Denies abscess or rash Neurologic Neurologic: Denies headache(s) or weakness Allergic/Immunologic Allergic/Immunologic ED: Denies mouth swelling or urticaria EXAM Physical Exam Const Vital Signs: 09/10/24 13:09 09/10/24 13:15 09/10/24 15:03 Temperature 97.8 F 97.8 F Temperature Source Oral Oral Pulse Rate 96 96 80 Respiratory Rate 16 16 Blood Pressure 125/73 H 125/73 H 113/75 Blood Pressure Mean 90 90 87 Pulse Ox 100 100 99 Oxygen Delivery Method Room Air Room Air Room Air 09/10/24 16:05 Temperature 97.8 F Temperature Source Pulse Rate 89 Respiratory Rate 16 Blood Pressure 114/80 Blood Pressure Mean 91 Pulse Ox 97 Oxygen Delivery Method Positive well nourished, well developed and obese Constitutional Narrative: Patient has a BMI of 46.0. General Appearance ED: well developed and NAD Nutritional Appearance: obese HEENT Reports moist mucous membranes Neck full ROM and supple Extremity Extremity Narrative: There is mild tenderness over the left knee. There is no erythema or warmth noted. There is mild tenderness of the left calf. There is no edema or ecchymosis noted. Range of motion was limited in all motions of the left knee and hip secondary to pain. Sensation was intact to light touch in all digits. Capillary refill was less than 2 seconds all digits. Pedal pulses are equal bilaterally. Neuro oriented x3, CN's II-XII intact bilaterally, moves all extremities and no sensory deficits noted Sensorium / Orientation: alert Motor Exam: strength 5/5 throughout Psych mental status grossly normal MDM MDM MDM Narrative Medical decision making narrative: Differential diagnosis includes fracture, contusion, sprain, meniscus injury, and muscle strain. X-rays of the left knee will be obtained to assess for fracture and contusion. Radiography Diagnostic Testing: Clinical Impression(s) from Imaging Studies Knee X-Ray 09/10/24 13:56 IMPRESSION: NO EFFUSION, ACUTE OR CHRONIC FRACTURE, OR DISLOCATION. Reading Location: [facility] X-rays of the left knee were obtained. There are 4 views. On my independent interpretation, there is no acute fracture. There is no joint effusion noted. There are mild degenerative changes noted. Radiologist also interpreted the x-rays and agrees. Treatment and Re-Evaluation Narrative: Patient was given a dose of Tylenol here. Patient was advised of her findings. Patient was instructed to ice and elevate the left knee. Patient was instructed to follow-up with her primary care physician in 5 to 7 days. Patient understood and was agreeable with the plan. All questions were answered. Discharge Plan Triage Chief Complaint: Lower Extremity Injury ED Provider: Harry Arreola Dx/Rx/DC Orders Clinical Impression: Acute pain of left knee, Morbid obesity Instructions: ED Home Care For Knee Pain Prescriptions: No Action citalopram 20 mg tablet 20 mg PO DAILY benztropine 1 mg tablet 1 mg PO QHS cetirizine 10 mg tablet 10 mg PO DAILY iloperidone 4 mg tablet 4 mg PO QHS topiramate [Topamax] 200 mg tablet 400 mg PO BID Rx Instructions: Must be BRAND name multivitamin Tablet 1 tab PO DAILY zonisamide 100 mg capsule 200 mg PO BID montelukast 10 mg tablet 10 mg PO DAILY benzonatate 100 mg capsule 200 mg PO TID PRN (Reason: cough) Qty: 30 0RF cyclobenzaprine 10 mg tablet 10 mg PO TID fluticasone propion-salmeterol 250-50 mcg/dose blister with device 1 ea inhalation BID metoprolol succinate 25 mg tablet extended release 24 hr 25 mg PO QDAY levetiracetam [Keppra] 750 mg tablet 1,500 mg PO BID albuterol sulfate 1 INHALER inhaler 2 puff inhalation Q4H PRN PRN (Reason: Wheezing) Qty: 1 0RF lacosamide [Vimpat] 150 mg tablet 300 mg PO BID benztropine 1 mg tablet 1.5 mg PO DAILY Primary Care Provider: Kenneth Tan Referrals: Kenneth Tan MD [Primary Care Provider] - 3-5 Days Print Language: Chinese Disposition Disposition: Home, Self Care Discharge Date/Time: 09/10/24 16:06
--- NOTE | 2024-09-10 13:56 | RAD_ITS ---
PROCEDURE: KNEE 4 OR MORE VIEWS 09/10/2024 REASON FOR EXAM: INJURY/PAIN TECHNIQUE: 4 view(s) of the left knee COMPARISON: None. FINDINGS: Bones: No acute fracture or findings compatible with prior fracture. No suspicious bone lesion. Joints: Normal alignment. Mild degenerative changes. Effusion: No effusion. Soft tissues: Soft tissues are unremarkable. No subcutaneous gas. Other: No metallic foreign body. RAD/Knee 4 or More Views IMPRESSION: NO EFFUSION, ACUTE OR CHRONIC FRACTURE, OR DISLOCATION. Reading Location: [id number]
[2024-09-10] MEDS: Acetaminophen 500 MG Tablet 1000 MG PO (14:06)
[2024-09-10 15:03] VITALS: BP 113/75; PULSE 80; O2SAT 99
[2024-09-10 16:05] VITALS: BP 114/80; PULSE 89; RESP 16; TEMP 36.6; O2SAT 97
== END 2024-09-10 16:06 | disposition home or self-care (01) ==
PROVIDERS: Emergency Provider Emergency Medicine; PCP Family Medicine; Visit Provider Emergency Medicine
DX: M25.562 Pain in left knee (principal); E66.01 Morbid (severe) obesity due to excess calories; Z68.42 Body mass index [BMI] 45.0-49.9, adult; K21.9 Gastro-esophageal reflux disease without esophagitis; R07.9 Chest pain, unspecified
CPT/HCPCS: 73564; 99284

== ENCOUNTER 2024-11-29 05:24 | Emergency (ER) | payer MEDICARE, MEDICAID, SELFPAY ==
[2024-11-29 05:26] VITALS: BP 115/85; PULSE 85; RESP 18; TEMP 36.7; O2SAT 98; BMI 49.1
--- NOTE | 2024-11-29 05:46 | EX.ED.DYSGE1 ---
HPI History of Present Illness Chief Complaint: Cough Informant: patient and EMS Narrative Narrative: Patient is a 44-year-old female with past medical history of asthma mental retardation generalized seizure disorder and schizophrenia. She states she woke this morning with increased cough and shortness of breath. She states she has had 1 or 2 days of nasal congestion as well. She does report that her niece was recently sick and she has been around her. She is concerned she may have pneumonia or bronchitis and therefore called EMS. EMS states the patient was able to ambulate to the cot and her pulse ox has been normal on room air. [facility] Medical History Edema Abnormal stress test Acute bilateral otitis media Acute bronchitis Seizure PND (paroxysmal nocturnal dyspnea) Dyspnea on exertion Schizophrenia Chest pain PCOS (polycystic ovarian syndrome) Myalgia and myositis GERD (gastroesophageal reflux disease) Conversion disorder Chronic factitious illness with physical symptoms Adjustment disorder with depressed mood Generalized seizure disorder History of mental retardation History of asthma Home Medications ?Medication ?Instructions ?Recorded ?Last Taken ?Type cetirizine 10 mg tablet 10 mg PO DAILY 02/11/19 Unknown History iloperidone 4 mg tablet 4 mg PO QHS BIPOLAR 02/11/19 06/02/19 History multivitamin 1 tab PO DAILY 02/11/19 06/03/19 History topiramate 200 mg tablet (Topamax) 400 mg PO BID SEIZURES 02/11/19 06/03/19 History citalopram 20 mg tablet 20 mg PO DAILY 02/23/19 06/03/19 History albuterol sulfate 90 mcg/actuation 2 puff inhalation Q4H PRN PRN 05/07/19 05/29/19 Rx aerosol inhaler Wheezing ##1 benztropine 1 mg tablet 1 mg PO QHS 01/30/22 Unknown History montelukast 10 mg tablet 10 mg PO DAILY 01/30/22 Unknown History zonisamide 100 mg capsule 200 mg PO BID 01/30/22 Unknown History benzonatate 100 mg capsule 200 mg (2 x 100 mg) PO TID PRN 02/11/22 Unknown Rx cough #30 caps cyclobenzaprine 10 mg tablet 10 mg PO TID 11/12/23 Unknown History fluticasone 250 mcg-salmeterol 50 1 ea inhalation BID 11/12/23 Unknown History mcg/dose blistr powdr for inhalation levetiracetam 750 mg tablet 1,500 mg PO BID 11/12/23 Unknown History (Keppra) metoprolol succinate 25 mg 25 mg PO QDAY 11/12/23 Unknown History tablet,extended release 24 hr lacosamide 150 mg tablet (Vimpat) 300 mg PO BID 06/08/24 Unknown History benztropine 1 mg tablet 1.5 mg PO DAILY 06/09/24 Unknown History azelastine 137 mcg (0.1 %) nasal 2 spray intranasal BID #30 mL 11/29/24 Unknown Rx spray Allergy/AdvReac Type Severity Reaction Status Date / Time chlorpheniramine (From [facility] Allergy Intermediate seizure Verified 09/10/24 13:09 DayQuil) dextromethorphan (From [facility] Allergy Intermediate seizure Verified 09/10/24 13:09 DayQuil) phenylpropanolamine (From Allergy Intermediate seizure [facility] 09/10/24 13:[facility] pseudoephedrine (From [facility]icks Allergy Intermediate seizure Verified 09/10/24 13:09 DayQuil) azithromycin (From Zithromax Allergy Other Verified 09/10/24 13:09 Z-Johnny) cephalexin Allergy Unknown Verified 09/10/24 13:09 doxycycline Allergy Nausea Verified 09/10/24 13:09 guaifenesin (From Mucinex) Allergy Other Verified 09/10/24 13:09 latex Allergy Rash Verified 09/10/24 13:09 oseltamivir (From Tamiflu) Allergy Unknown Verified 06/08/24 19:48 risperidone (From Risperdal) Allergy Other Verified 09/10/24 13:09 strawberry Allergy Hives Verified 09/10/24 13:09 valdecoxib (From Bextra) Allergy Rash Verified 09/10/24 13:09 Family History Mother Asthma Father Heart disease Seizures Brother Seizures Sister Myocardial infarction Heart disease Seizures Grandmother Diabetes CVA (cerebral vascular accident) Surgical History Hx of removal of cyst Social History Smoking Status: Never smoker alcohol intake: never substance use type: does not use caffeine: Yes Type: carbonated beverages ROS ROS ED Constitutional Constitutional ED: Denies chills or fever(s) ENT ENT ED: Reports rhinorrhea and sore throat; Denies ear pain Cardiovascular Cardiovascular: Denies chest pain Respiratory/Chest Respiratory/Chest: Reports cough and dyspnea Gastrointestinal Gastrointestinal: Denies abdominal pain, diarrhea, nausea or vomiting Musculoskeletal Musculoskeletal: Denies myalgias Integumentary Denies rash Neurologic Neurologic: Denies headache(s) Hematologic/Lymphatic Hematologic/Lymphatic: Denies easy bleeding or easy bruising Allergic/Immunologic Allergic/Immunologic ED: Denies mouth swelling or tongue swelling EXAM Physical Exam Const Vital Signs: 11/29/24 05:26 11/29/24 05:31 11/29/24 05:52 Temperature 98.1 F Temperature Source Oral Pulse Rate 85 80 Respiratory Rate 18 20 H Respiratory Effort Normal Respiratory Pattern Tachypnea Blood Pressure 115/85 H Blood Pressure Mean 95 Pulse Ox 98 Oxygen Delivery Method Room Air 11/29/24 07:39 Temperature 98.4 F Temperature Source Pulse Rate 69 Respiratory Rate 17 Respiratory Effort Respiratory Pattern Blood Pressure 117/62 Blood Pressure Mean 80 Pulse Ox 100 Oxygen Delivery Method Positive well nourished, well developed and obese General Appearance ED: well developed; Negative for pallor Nutritional Appearance: obese HEENT HEENT Narrative: Nasal mucosa is hyperemic and boggy with enlarged inferior nasal turbinate There is cobblestoning the posterior pharynx consistent with sinus drainage; no airway edema or compromise; no secondary findings to suggest infection No tongue or lip swelling noted Bilateral TMs are retracted but show no secondary findings to suggest infection Eyes PERRL and EOMs intact bilaterally General Eye ED: Negative for scleral icterus Neck supple and no JVD Neck Narrative: Positive anterior cervical lymphadenopathy noted Resp normal respiratory effort Resp Narrative: Breath sounds are diminished throughout with faint rhonchi in the bilateral bases No nasal flaring retractions tachypnea or accessory muscle use Cardio regular rate and regular rhythm Extremity normal to inspection Extremity Narrative: No asymmetric edema no pitting edema negative Homans' sign bilaterally Neuro oriented x3 and CN's II-XII intact bilaterally Sensorium / Orientation: alert Psych Psych Narrative: Patient has a depressed/flat affect consistent with negative symptoms of schizophrenia Mood & Affect: depressed Skin no rashes or lesions noted General Skin Exam: Negative for jaundice or pallor MDM MDM MDM Narrative Medical decision making narrative: Patient arrived to the ER with stable vitals and was satting 98 to 100% on room air. She reported congestion and cough and shortness of breath. Differential diagnosis is for viral infection such as COVID versus influenza versus RSV. Patient could also have potential pneumonia or pleural effusion. Secondary to this a viral swab and chest x-ray were obtained. The viral swab was negative for COVID influenza or RSV. Chest x-ray revealed no acute lung pathology. In the ER she remained hemodynamically stable without signs of respiratory distress and her pulse ox remained 98 to 100% on room air. Therefore at this time she is not hypoxic she does not have increased work of breathing she is not requiring supplemental oxygen nor other findings of lung pathology such as a pneumothorax that would require any further intervention. With report of being around her niece who was recently sick this is most likely a viral infection and without findings of respiratory distress or need for supplemental oxygen she is safe for discharge. History & Record Review Discussion w/independent historian: Patient Radiography Diagnostic Testing: Clinical Impression(s) from Imaging Studies Chest X-Ray 11/29/24 06:30 IMPRESSION: No acute process is identified in the chest. Reading Location: [facility] 2 view chest x-ray as interpreted by the emergency medicine physician reveals no acute infiltrate pneumothorax or pleural effusion Discharge Plan Triage Chief Complaint: Cough ED Provider: Jose Ely Dx/Rx/DC Orders Clinical Impression: Viral upper respiratory tract infection with cough, Generalized seizure disorder, Morbid obesity, Schizophrenia Instructions: ED URI, Viral W/ Wheezing (Adult) Prescriptions: New azelastine 137 mcg (0.1 %) spray,non-aerosol 2 spray intranasal BID Qty: 30 0RF Rx Instructions: administer into each nostril No Action citalopram 20 mg tablet 20 mg PO DAILY benztropine 1 mg tablet 1 mg PO QHS cetirizine 10 mg tablet 10 mg PO DAILY iloperidone 4 mg tablet 4 mg PO QHS topiramate [Topamax] 200 mg tablet 400 mg PO BID Rx Instructions: Must be BRAND name multivitamin Tablet 1 tab PO DAILY zonisamide 100 mg capsule 200 mg PO BID montelukast 10 mg tablet 10 mg PO DAILY benzonatate 100 mg capsule 200 mg PO TID PRN (Reason: cough) Qty: 30 0RF cyclobenzaprine 10 mg tablet 10 mg PO TID fluticasone propion-salmeterol 250-50 mcg/dose blister with device 1 ea inhalation BID metoprolol succinate 25 mg tablet extended release 24 hr 25 mg PO QDAY levetiracetam [Keppra] 750 mg tablet 1,500 mg PO BID albuterol sulfate 1 INHALER inhaler 2 puff inhalation Q4H PRN PRN (Reason: Wheezing) Qty: 1 0RF lacosamide [Vimpat] 150 mg tablet 300 mg PO BID benztropine 1 mg tablet 1.5 mg PO DAILY Primary Care Provider: Kenneth Tan Referrals: Kenneth Tan MD [Primary Care Provider] - Activity Restrictions/Additional Instructions: Your test for COVID influenza and RSV was negative. Your chest x-ray reveals no acute pneumonia. Your symptoms are consistent with a viral upper respiratory tract infection. This will cause nasal congestion and lung inflammation which will make you cough and feel short of breath. Use the inhaler and nasal spray to help reduce the symptoms. Symptoms will typically last 10 to 14 days. Return to the ER should you have any further concerns Print Language: Maltese Disposition Disposition: Home, Self Care Discharge Date/Time: 11/29/24 07:40
--- OUTSIDE RECORDS SUMMARY | 2024-11-29 05:49 | XMS RPT_ITS | CCD ---
Author Organization [facility] Care Team Providers Care Director Financial Systems Name Role Phone Daniel Tan MD Primary Care Provider Dr. Daniel Tan Primary Care Provider [phone] Dr. Daniel Tan Referring Provider [phone] Dr. Cresencio Carrero Attending Provider [phone] BRIDGETTE Perez Attending Provider Dr. Cresencio Carrero Referring Provider [phone] Dr. Cresencio Carrero Other Provider [phone] Daniel Tan MD Primary Care Provider Daniel Tan MD Primary Care Provider Dr. Daniel Tan Primary Care Provider [phone] Dr. Daniel Tan Referring Provider [phone] Dr. Cresencio Carrero Attending Provider [phone] BRIDGETTE Perez Attending Provider Dr. Cresencio Carrero Referring Provider [phone] Dr. Cresencio Carrero Other Provider [phone] Daniel Tan Primary Care Provider [phone] Dr. Daniel Tan Referring Provider [phone] Dr. Fide Santos Attending Provider Dr. Gerber Camarillo Attending Provider Dr. Gerber Camarillo Referring Provider Dr. Gerber Camarillo Other Provider Dr. Daniel Tan Primary Care Provider Dr. Daniel Tan Referring Provider Daniel Tan MD Primary Care Provider PHYSICIAN, NONE Primary Care Physician Unavailab le PHYSICIAN, NONE Primary Care Unavailable LIMA PATEL PA-C Attending Unavailable Tannhomahad DAIRY INSPECTOR.MILLER HEAD ASSISTANT WET PROCESSIdalia Unavailable KESHA CUBA, MILAGRO Tobin Attending Unavailabl e PHYSICIAN, NONE Primary Care Unavailable BRADY ULLOA Consulting Unavailable ALTON CUBA, DR EUNICE Raza Admitting Unavailable Jose DAIRY INSPECTOR.MILLER HEAD ASSISTANT WET PROCESS, Chaim Unavailable Dr. Daniel Tan MD Primary Care Provider Dr. Al Argueta DO Attending Provider Dr. Al Argueta DO Emergency Provider OLIMPIA ESCOBEDO Attending Provider Unavailable OLIMPIA ESCOBEDO Referring Provider Unavailable Tannhof DAIRY INSPECTOR.MILLER HEAD ASSISTANT WET PROCESS, Idalia Unavailable Unavail able Tannhof DAIRY INSPECTOR.MILLER HEAD ASSISTANT WET PROCESS, Idalia Unavailable ElderDaniel cedeno Referring Unavailable Bhanu REBOLLAR, Jana Attending Unavailable Elderbrock, Daniel Primary Care Unavailable Sabiha Watkins Attending Unavail able Elderbrock, Daniel Primary Care Unavailable Elderbrock, Daniel Referring Unavailable Elderbrock, Daniel Primary Care Unavailable MagdalenoBarrett logan Attending Unavailable Magdaleno, Barrett Referring Unavailable Nacho Olivia Attending Unavailable Elderbrock, Daniel Primary Care Unavailable Joyce Hager Attending Unavailable Joyce Hager Referring Unavailable Elderbrock, Daniel Primary Care Unavailable Al Argueta Attending Unavailable Elderbrock, Daniel Primary Care Unavailable Elderbrock, Daniel Primary Care Unavailable SANTILLAN, JENNIFER Attending Unavailable SANTILLAN, JENNIFER Referring Unavailable SusannaightLima Attending Unavailable Susannaight Lima Referring Unavailable Elderbrock, Daniel Primary Care Unavailable Elderbrock, Daniel Primary Care Unavailable Harry Arreola Attending Unavailable Tannhof DAIRY INSPECTOR.MILLER HEAD ASSISTANT WET PROCESS, Idaliajose Bird Unavailable JACKI ZARAGOZA Attending Unavailable DANIEL TAN Primary Care Unavailable DANIEL TAN Primary Care Unavailable WILMER MURILLO Referring Unavailable WILMER MURILLO Attending Unavailable DANIEL TAN Primary Care Unavailable DANIEL TAN Primary Care Unavailable FERNANDOMahadIDALIA Referring Unavailabl DANIEL Fisher Primary Care Unavailable IDALIA LEWIS Attending Unavailabl DANIEL Fisher Primary Care Unavailable IDALIA LEWIS Referring Unavailabl DANIEL Fisher Primary Care Unavailable IDALIA LEWIS Attending UnavailJACKI Heart Attending Unavailable DANIEL TAN Primary Care Unavailable SELF Referring Unavailable DANIEL TAN Primary Care Unavailable DANIEL TAN Attending Unavailable JACKI ZARAGOZA Referring Unavailable DANIEL TAN Primary Care Unavailable Allergies Allergy Classification Reported Allergen(s) Allergy Type Date of Onset Reaction(s) Facility Acetaminophen / Dextromethorphan / guaiFENesin / Pseudoephedrine (2 sources) Acetaminophen / Dextromethorphan / guaiFENesin / Pseudoephedrine Drug Allergy 013 Other: See Comments [facility] Work Phone: Anti-Epileptic Agents (2 sources) topiramate Drug Allergy 013 Other: See Comments [facility] Berries (2 sources) [place] Food Allergy 017 Hives [facility] Cephalosporins (antibiotic) (2 sources) Cephalexin Drug Allergy 005 Intolerance [facility] Work Phone: Dextromethorphan / guaiFENesin (2 sources) Dextromethorphan / guaiFENesin Drug Allergy 009 Intolerance [facility] Doxycycline (2 sources) Doxycycline Drug Allergy 009 GI Upset [facility] Latex (2 sources) Latex Substance Allergy 006 Rash [facility] Macrolides (antibiotic) (2 sources) Azithromycin Drug Allergy 013 GI Upset [facility] Work Phone: Oseltamivir (2 sources) Oseltamivir Drug Allergy 013 Other: See Comments [facility] risperiDONE (2 sources) risperiDONE Drug Allergy 013 Other: See Comments [facility] Work Phone: valdecoxib (2 sources) valdecoxib Drug Allergy 005 Rash [facility] (20 sources) Acetaminophen / Dextromethorphan / guaiFENesin / Pseudoephedrine; Translations: [[id number] MINOPHEN] Drug Allergy 013 Other: See Comments [facility] Work Phone: (20 sources) Azithromycin; Translations: [azithromycin] Drug Allergy 013 GI Upset [facility] Work Phone: (20 sources) Cephalexin; Translations: [cephalexin] Drug Allergy 005 Intolerance, Topography unknown (body structure) [facility] Work Phone: (20 sources) Dextromethorphan / guaiFENesin; Translations: [DEXTROMETHORPHAN-GUAI FENESIN] Drug Allergy 009 Intolerance [facility] (20 sources) Doxycycline; Translations: [doxycycline] Drug Allergy 009 GI Upset, Nausea (finding) [facility] (20 sources) Latex; Translations: [LATEX] Propensity to adverse reactions 006 Rash [facility] Work Phone: (20 sources) Oseltamivir; Translations: [OSELTAMIVIR PHOSPHATE] Drug Allergy 013 Other: See Comments [facility] Work Phone: (20 sources) risperiDONE; Translations: [RISPERIDONE] Drug Allergy 013 Other: See Comments [facility] Work Phone: (20 sources) [place]; Translations: [STRAWBERRIES] Food Allergy 017 Hives [facility] Work Phone: (20 sources) topiramate; Translations: [TOPIRAMATE] Drug Allergy 013 Other: See Comments [facility] Work Phone: (20 sources) valdecoxib; Translations: [VALDECOXIB] Drug Allergy 005 Rash [facility] (5 sources) Acetaminophen Drug Allergy 022 seizure [facility] [place] (14 sources) Chlorpheniramine; Translations: [chlorpheniramine] Drug Allergy 022 Seizure (finding) [facility] [place] (13 sources) Dextromethorphan Drug Allergy seizure [facility] [place] (13 sources) guaiFENesin Drug Allergy Other [facility] [place] (13 sources) Oseltamivir Drug Allergy Unknown [facility] [place] (13 sources) Phenylpropanolamine Drug Allergy seizure [facility] [place] (14 sources) Pseudoephedrine; Translations: [pseudoephedrine] Drug Allergy Seizure (finding) [facility] [place] (13 sources) strawberry allergenic extract Drug Allergy Hives [facility] [place] (3 sources) Ascorbic Acid; Translations: [ascorbic acid] Drug Allergy Seizure (finding) [facility] Comment on above: Hives (1 source) Phenylephrine; Translations: [dextromethorphan] Drug Allergy Seizure (finding) [facility] (1 source) Azithromycin Drug Allergy [facility] [place] Repository (1 source) Cephalexin Drug Allergy [facility] [place] Repository (1 source) Chlorpheniramine Drug Allergy [facility] [place] Repository (1 source) Dextromethorphan Drug Allergy [facility] [place] Repository (1 source) Doxycycline Drug Allergy [facility] [place] Repository (1 source) guaiFENesin Drug Allergy [facility] [place] Repository (1 source) Latex Drug allergy (disorder) [facility] [place] Repository (1 source) Oseltamivir Drug Allergy [facility] [place] Repository (1 source) Phenylpropanolamine Drug Allergy [facility] [place] Repository (1 source) Pseudoephedrine Drug Allergy [facility] [place] Repository (1 source) risperiDONE Drug Allergy [facility] [place] Repository (1 source) strawberry allergenic extract Drug Allergy [facility] [place] Repository (1 source) valdecoxib Drug Allergy [facility] [place] Repository Medications Current Medications Medication Drug Class(es) Dates Sig (Normalized) Sig (Original) 8 hr acetaminophen 650 mg extended release oral tablet (20 sources) Start: 09-07-2023 take 1 tablet by mouth every eight hours as needed TYLENOL ARTHRITIS PAIN 650 mg CR tablet Take 1 tablet by mouth every 8 hours as needed. 100 Each 2 09/07/2023 Active [id number] 200 actuat albuterol 0.09 mg/actuat metered dose inhaler (20 sources) beta2-Adrenergic Agonist Start: 03-20-2023 End: 10-05-2024 take 2 puff(s) by inhalation every four hours as needed for wheezing albuterol HFA (VENTOLIN HFA) 90 mcg/actuation inhaler Indications: Moderate persistent asthma with acute exacerbation (HCC) Inhale 2 puffs as instructed every 4 hours as needed for wheezing/shortness of breath. 1 each 4 09/05/2024 Active Start: 05-16-2022 End: 10-18-2022 take 2 puff(s) by inhalation every four hours as needed for wheezing albuterol HFA (VENTOLIN HFA) 90 mcg/actuation inhaler Indications: Moderate persistent asthma with acute exacerbation Inhale 2 Puffs as instructed every 4 hours as needed for wheezing/shortness of breath. 1 Each 4 09/18/2022 Active Start: 03-18-2021 End: 05-16-2022 take 2 puff(s) by inhalation every four hours as needed albuterol HFA (PROAIR HFA) 90 mcg/actuation inhaler Indications: Cough , Moderate persistent asthma with acute exacerbation Inhale 2 Puffs as instructed every 4 hours as needed. 18 g 2 12/10/2021 05/16/2022 Discontinued Start: 06-18-2020 End: 09-10-2020 take 2 puff(s) by inhalation every four hours as needed albuterol HFA (PROAIR HFA) 90 mcg/actuation inhaler Inhale 2 Puffs as instructed every 4 hours as needed. 18 g 06/18/2020 09/10/2020 Discontinued Start: 05-07-2019 End: 01-30-2022 Albuterol Sulfate 1 INHALER inhaler Discontinued 2 NMA INHALATION EVERY 4 HOURS NEEDED as needed for Wheezing September 30, 2019 12:00am January 30, 2022 1:00pm Start: 05-07-2019 End: 01-30-2022 take 1 puff(s) by inhalation every four hours as needed Albuterol Sulfate Discontinued 2 PUFF INHALATION EVERY 4 HOURS NEEDED September 30, 2019 12:00am January 30, 2022 1:00pm Start: 05-12-2015 End: 05-17-2019 Albuterol Sulfate 1 INHALER inhaler Discontinued 1 - 2 NMA INHALATION EVERY 4 HOURS NEEDED as needed for Wheezing May 12, 2015 1:00am May 17, 2019 2:01pm Start: 05-12-2015 End: 05-17-2019 take 1 puff(s) by inhalation every four hours as needed Albuterol Sulfate Discontinued 1 - 2 PUFF INHALATION EVERY 4 HOURS NEEDED May 12, 2015 1:00am May 17, 2019 2:01pm Start: 03-31-2011 take 2 puff(s) by in halation four times daily Proventil HFA 90 mcg/inh inhalation aerosol 2 puff(s), Inhalation, QID, # 9 g, 0 Refill(s) Start Date: 03/31/11 Status: Ordered Quantity: 9.0 Unit: g Repeat number: 1 Comment on above: Inhale 2 Puffs as in structed every 4 hours as needed. Inhale 2 Puffs as in structed every 4 hours as needed for wheezing/shortness of breath. Allergy Relief (Fexofenadine HCl) 180 mg oral tablet (1 source) Start: 0 take 1 tablet by mouth once daily Allergy Relief (Fexofenadine HCl) 180 mg oral tablet Take 1 tablet by mouth once daily. Start Date: 06/01/19 Status: Ordered amoxicillin 875 mg oral tablet (17 sources) Penicillin-class Antibacterial Start: 4 End: 4 take 1 tablet by mouth twice daily amoxicillin (AMOXIL) 875 mg tablet Take 1 tablet by mouth two times a day for 10 days. 20 tablet 0 10/20/2023 10/30/2023 Active Start: 01-30-2023 End: 02-09-2023 take 1 tablet by mouth twice daily amoxicillin (AMOXIL) 875 mg tablet Indications: Sinobronchitis Take 1 tablet by mouth two times a day for 10 days. 20 tablet 0 01/30/2023 02/09/2023 Start: 09-18-2022 End: 01-06-2023 take 1 tablet by mouth twice daily Amoxicillin 875 mg tablet Discontinued 875 mg PO TWICE A DAY September 18, 2022 12:00am January 06, 2023 2:00pm Start: 07-29-2022 End: 08-08-2022 take 1 tablet by mouth twice daily amoxicillin (AMOXIL) 875 mg tablet Indications: Sinobronchitis Take 1 tablet by mouth twice daily for 10 days. 20 tablet 0 07/29/2022 08/08/2022 Comment on above: Take 1 tablet by tiffany th twice daily for 10 days. Take 1 tablet by tiffany th two times a day for 10 days. benztropine mesylate 1 mg oral tablet (20 sources) Anticholinergic, Antihistamine Start: take 1.5 mg by mouth once daily Benztropine 1 mg tablet Active 1.5 mg PO DAILY June 09, 2024 1:00am Start: 07-06-2023 End: 11-09-2024 take 1 tablet by mouth in the morning, then take 1 tablet by mouth at bedtime benztropine (COGENTIN) 1 mg tablet TAKE 1 & 1/2 (ONE AND ONE-HALF) TABLETS BY MOUTH IN THE MORNING and ONE TABLET AT BEDTIME 07/06/2023 11/09/2024 Discontinued Start: 02-23-2019 End: 01-30-2022 take 1 tablet by mouth in the morning, then take 1 tablet by mouth at bedtime benztropine (COGENTIN) 1 mg tablet TAKE 1 & 1/2 (ONE AND ONE-HALF) TABLETS BY MOUTH IN THE MORNING and ONE TABLET AT BEDTIME 07/06/2023 Active Start: 01-07-2019 End: 02-11-2019 take 1 mg by mouth twice daily Benztropine 2 MG tablet Discontinued 1 mg PO TWICE A DAY January 07, 2019 12:00am February 11, 2019 10:15am Start: 01-07-2019 End: 02-11-2019 take 1 mg by mouth twice daily Benztropine Discontinue d 1 MG PO TWICE A DAY January 07, 2019 12:00am February 11, 2019 10:15am Comment on above: TAKE 1 & 1/2 (ONE AN D ONE-HALF) TABLETS BY MOUTH IN THE MORNING and ONE TABLET AT BEDTIME Calcium (2 sources) Phosphate Binder, Calcium Start: 06-01-2019 take 1 tablet by mouth once daily Calcium 600+D oral tablet Dose = 1 tab(s), Oral, Daily Start Date: 06/01/19 Status: Ordered Repeat number: 1 Start: 06-01-2019 take 1 tablet by mouth once da [place] Calcium 600+D oral tablet Dose = 1 tab(s), Oral, Daily Start Date: 06/01/19 Status: Ordered cefdinir 300 mg oral capsule (5 sources) Cephalosporin Antibacterial Start: 12-31-2023 End: 01-10-2024 take 1 capsule by mouth twice daily cefdinir (OMNICEF) 300 mg capsule Indications: Sinobronchitis Take 1 capsule by mouth two times a day for 10 days. 20 capsule 12/31/2023 01/10/2024 Active Start: 10-18-2022 End: 10-28-2022 take 1 capsule by mouth twice daily cefdinir (OMNICEF) 300 mg capsule Take 1 capsule by mouth twice daily for 10 days. 20 capsule 0 10/18/2022 10/20/2022 Discontinued Comment on above: Take 1 capsule by [facility] twice daily for 10 days. cetirizine hydrochloride 10 mg oral tablet (20 sources) Histamine-1 Receptor Antagonist Start: End: take 1 tablet by mouth once daily cetirizine (ZYRTEC) 10 mg tablet Indications: Rhinorrhea Take 1 tablet by mouth once daily. 90 tablet 3 10/17/2024 11/16/2025 Active Start: 02-11-2019 End: 06-20-2024 take 1 tablet by mouth once daily Cetirizine 10 mg tablet Active 10 mg PO DAILY February 11, 2019 12:00am Comment on above: Take 1 tablet by [facility] once daily. citalopram 20 mg oral tablet (20 sources) Serotonin Reuptake Inhibitor Start: 02-23-2019 take 1 tablet by mouth once daily Citalopram 20 mg tablet Active 20 mg PO DAILY February 23, 2019 1:00am Start: 01-07-2019 End: 02-11-2019 take 1 tablet by mouth once daily Citalopram 20 MG tablet Discontinued 20 mg PO DAILY January 07, 2019 12:00am February 11, 2019 10:16am Comment on above: 20 mg once daily. 1 tablet daily clotrimazole 10 mg/ml topical cream (3 sources) Azole Antifungal Start: 12-25-19 End: 01-08-20 clotrimazole (LOTRIMIN) 1 % cream Indications: Yeast infection of the skin Apply to affected area twice daily for 14 days. 60 g 3 12/24/2022 01/07/2023 Active Comment on above: Apply to affected ar ea twice daily for 14 days. fluticasone furoate 0.0275 mg/actuat metered dose nasal spray (20 sources) Corticosteroid Start: 12-12-19 End: 03-11-20 take 2 spray(s) nasal route once daily Fluticasone Furoate (FLONASE SENSIMIST) 27.5 mcg/actuation nasal spray Indications: Sinus congestion Use 2 Sprays in each nostril once daily. 5.6 g 3 12/11/2022 03/11/2023 Active Start: 06-01-2019 take 1 puff(s) by in halation twice daily Flovent HFA 44 mcg/inh inhalation aerosol Inhale 1 Puff as instructed twice daily. Start Date: 06/01/19 Status: Ordered Repeat number: 1 Start: 04-04-2019 End: 12-09-2021 take 2 spray(s) by mouth once daily fluticasone (FLONASE) 50 mcg/actuation nasal spray Indications: Viral sinusitis Use 2 Sprays in each nostril once daily. Rinse mouth after use. 1 Bottle 1 04/04/2019 12/09/2021 Discontinued Start: 02-11-2019 End: 02-23-2019 Fluticasone Propionate 44 mcg/actuation HFA aerosol inhaler Discontinued 1 NMA INHALATION TWICE A DAY February 11, 2019 12:00am February 23, 2019 3:37pm Start: 02-11-2019 End: 05-17-2019 Fluticasone Propionate (Curt rgy Relief (Fluticasone)) 50 mcg/actuation spray,suspension Discontinued 2 NMA INTRANASAL DAILY February 11, 2019 12:00am May 17, 2019 2:06pm Start: 02-11-2019 End: 02-23-2019 Fluticasone Propionate Discontinued 1 INH INHALATION TWICE A DAY February 11, 2019 12:00am February 23, 2019 3:37pm Start: 02-11-2019 End: 05-17-2019 Fluticasone Propionate (Curt rgy Relief (Fluticasone)) 50 mcg/actuation spray,suspension Discontinued 2 SPRAY INTRANASAL DAILY February 11, 2019 12:00am May 17, 2019 2:06pm Start: 12-31-2018 End: 12-09-2021 take 1 puff(s) by inhalation twice daily fluticasone (FLOVENT) 44 mcg/actuation inhaler Indications: Persistent cough for 3 weeks or longer , Moderate persistent asthma with (acute) exacerbation Inhale 1 Puff as instructed twice daily. 1 Inhaler 5 12/31/2018 12/09/2021 Discontinued Comment on above: Inhale 1 Puff as ins tructed twice daily. Use 2 Sprays in each nostril once daily. Rinse mouth after use. Use 2 Sprays in each nostril once daily. fluticasone / salmeterol (20 sources) Corticosteroid, beta2-Adrenergic Agonist Start: 08-20-2024 take 1 puff(s) by mouth twice daily fluticasone-salmeter ol (ADVAIR DISKUS) 250-50 mcg/dose inhaler Indications: Asthma with acute exacerbation, unspecified asthma severity, unspecified whether persistent (HCC) Inhale 1 puff as instructed two times a day. Rinse and gargle mouth after use with water. 1 each 1 08/20/2024 Active Start: 11-12-2023 Fluticasone Pr opion-Salmeterol 250-50 mcg/dose blister with device Active 1 NMA INHALATION TWICE A DAY November 12, 2023 12:00am Start: 10-09-2023 End: 08-20-2024 take 1 puff(s) by mouth twice daily fluticasone-salmeterol (ADVAIR DISKUS) 250-50 mcg/dose inhaler Indications: Asthma with acute exacerbation, unspecified asthma severity, unspecified whether persistent (HCC) Inhale 1 Puff as instructed two times a day. Rinse and gargle mouth after use with water. 1 Each 5 10/09/2023 08/20/2024 Discontinued Start: 10-09-2023 take 1 puff(s) by mo ut twice daily fluticasone-salmeterol (ADVAIR DISKUS) 250-50 mcg/dose inhaler Indications: Asthma with acute exacerbation, unspecified asthma severity, unspecified whether persistent (HCC) Inhale 1 Puff as instructed two times a day. Rinse and gargle mouth after use with water. 1 Each 10/09/2023 Active Start: 10-09-2023 take 1 puff(s) by mo ut twice daily fluticasone-salmeterol (ADVAIR DISKUS) 250-50 mcg/dose inhaler Indications: Asthma with acute exacerbation, unspecified asthma severity, unspecified whether persistent Inhale 1 Puff as instructed two times a day. Rinse and gargle mouth after use with water. 1 Each 10/09/2023 Active hydrOXYzine hydrochloride 50 mg oral tablet (1 source) Antihistamine Start: 06-01-2019 hydrOXYzine hydrochloride 50 mg oral tablet Dose : 50 mg = 1 tab(s), Oral, Daily Start Date: 06/01/19 Status: Ordered lansoprazole 30 mg delayed release oral capsule (1 source) Proton Pump Inhibitor Start: 06-01-2019 lansoprazole 30 mg oral delayed release capsule Dose : 30 mg = 1 cap(s), Oral, BID Start Date: 06/01/19 Status: Ordered levETIRAcetam 750 mg oral tablet (20 sources) Start: 09-05-2024 take 1 tablet by mouth twice daily levETIRAcetam (KEPPRA) 750 mg tablet Indications: Seizure disorder (HCC) Take 1 tablet by mouth two times a day. 09/05/2024 Active Start: 06-09-2024 take 1 dose by mouth twice daily levETIRAcetam Dose : 750 mg =, Oral, BID, 0 Refill(s) Start Date: 06/09/24 Status: Ordered Repeat number: 1 Start: 11-12-2023 End: 12-06-2023 take 2 tablets by mouth twice daily Levetiracetam 500 mg tablet Discontinued 1000 mg PO TWICE A DAY November 12, 2023 10:46am December 06, 2023 8:36pm Start: 11-12-2023 take 2 tablets by mo [facility] twice daily Levetiracetam (Keppra) 750 mg tablet Active 1500 mg PO TWICE A DAY November 12, 2023 12:00am Start: 01-30-2022 End: 11-12-2023 Levetiracetam 500 mg tablet Discontinued 750 mg PO TWICE A DAY January 30, 2022 12:00am November 12, 2023 10:49am Start: 01-30-2022 take 750 mg by mouth twice daily Levetiracetam Active 750 MG PO TWICE A DAY January 30, 2022 12:00am Start: 01-30-2022 take 500 mg by mouth twice daily Levetiracetam Active 500 MG PO TWICE A DAY January 30, 2022 12:00am End: 09-05-2024 levETIRAcetam (KEPPRA) 750 m g tablet Take 1,000 mg by mouth two times a day. 09/05/2024 Discontinued take 1 tablet by tiffany th twice daily levETIRAcetam (KEPPRA) 750 mg tablet Take 750 mg by mouth twice daily. 0 Active Comment on above: Take 750 mg by mouth twice daily. Take 1,000 mg by tiffany th two times a day. 24 hr metoprolol succinate 25 mg extended release oral tablet (20 sources) beta-Adrenergic [place] Start: 07-27-2023 End: 04-04-2024 take 1 tablet by mouth once daily metoprolol succinate ER (TOPROL XL) 25 mg 24 hr tablet Indications: Other chest pain , Abnormal nuclear cardiac imaging test Take 1 tablet by mouth once daily. 90 tablet 3 04/04/2024 Active Start: 02-18-2022 End: 01-01-2023 take 1 tablet by mouth every hour Metoprolol Tartrate 50 mg tablet Discontinued 50 mg PO .COMPLEX 2 February 18, 2022 3:55pm January 01, 2023 11:06am 50 mg orally take 1 tab by mouth the night before scan and then take 1 tab by mouth 1 hour prior to scan; Comment on above: Take 1 tablet by tiffany th once daily. montelukast 10 mg oral tablet (20 sources) Leukotriene Receptor Antagonist Start: End: take 1 tablet by mouth once daily at bedtime montelukast (SINGULAIR) 10 mg tablet Indications: Moderate persistent asthma with acute exacerbation (HCC) Take 1 tablet by mouth daily at bedtime. 90 tablet 3 10/17/2024 Active Start: 02-11-2021 End: 12-09-2021 take 1 tablet by mouth once daily at bedtime montelukast (SINGULAIR) 10 mg tablet Indications: Moderate persistent asthma with acute exacerbation , Nasal congestion Take 1 tablet by mouth daily at bedtime. 90 tablet 3 12/09/2021 Active Comment on above: Take 1 tablet by tiffany th daily at bedtime. Multivitamin preparation (20 sources) Start: 0 take 1 tablet by mouth once daily Multivitamin Dose = 1 tab(s), Oral, Daily, 0 Refill(s) Start Date: 06/01/19 Status: Ordered Repeat number: 1 Start: 06-01-2019 take 1 tablet by tiffany th once daily Multivitamin Dose = 1 tab(s), Oral, Daily, 0 Refill(s) Start Date: 06/01/19 Status: Ordered Start: 02-11-2019 take 1 tablet by tiffany th once daily Multivitamin Active 1 TABLET PO DAILY February 10, 2019 11:00pm Start: 02-11-2019 take 1 tablet by tiffany th once daily Multivitamin Active 1 TABLET PO DAILY February 11, 2019 12:00am Start: 10-06-2017 End: 02-11-2019 Multivitamin Discontinued 1 EACH PO DAILY October 05, 2017 11:00pm February 11, 2019 9:16am Start: 10-06-2017 End: 02-11-2019 Multivitamin Discontinued 1 EACH PO DAILY October 06, 2017 12:00am February 11, 2019 10:16am Multivitamin tablet (1 source) Start: 02-11-2019 Multivitamin t ablet Active 1 {tbl} PO DAILY February 11, 2019 12:00am norethindrone acetate 5 mg oral tablet (20 sources) Start: 11-28-2024 End: 12-28-2024 take 2 tablets by mouth once daily norethindrone (AYGESTIN) 5 mg tablet Take 2 tablets by mouth once daily. 60 tablet 11/28/2024 12/28/2024 Active Start: 03-06-2021 End: 09-05-2024 take 1 tablet by mouth once daily Norethindrone, Contraceptive, (ORTHO MICRONOR) 0.35 mg tablet Take 1 tablet by mouth once daily. 28 tablet 11 03/06/2021 09/05/2024 Discontinued (Course of therapy completed) Comment on above: Take 1 tablet by tiffany th once daily. OLANZapine 10 mg disintegrating oral tablet (2 sources) Atypical Antipsychotic Start: take 1 tablet by mouth once daily at bedtime OLANZapine orally disintegrating (ZYPREXA ZYDIS) 10 mg disintegrating tablet Take 1 tablet by mouth daily at bedtime. 11/09/2024 Active omeprazole 40 mg delayed release oral capsule (20 sources) Proton Pump Inhibitor Start: 024 End: take 1 capsule by mouth once daily omeprazole (PRILOSEC) 40 mg capsule Take 1 capsule by mouth once daily. 90 capsule 3 10/17/2024 Active predniSONE 10 mg oral tablet (20 sources) Start: End: predniSONE (DELTASONE) 10 mg tablet Take 4 tabs daily for 3 days, then 2 tabs daily for 3 days, then 1 tab daily for 3 days with food. 21 tablet 09/26/2024 10/05/2024 Active Start: 09-05-2024 End: 09-26-2024 take 2 tablets by mouth once daily predniSONE (DELTASONE) 20 mg tablet Indications: Acute pain of left knee , Acute left ankle pain , Acute bronchitis, unspecified organism Take 2 tablets by mouth once daily. 10 tablet 09/19/2024 09/26/2024 Discontinued Start: 11-12-2023 End: 12-06-2023 take 1 tablet by mouth twice daily Prednisone 20 mg tablet Discontinued 20 mg PO TWICE A DAY November 12, 2023 12:00am December 06, 2023 8:36pm Start: 11-10-2023 End: 11-15-2023 take 2 tablets by mouth once daily at mealtime predniSONE (DELTASONE) 20 mg tablet Indications: Acute bronchitis, unspecified organism , Asthma with acute exacerbation, unspecified asthma severity, unspecified whether persistent Take 2 tablets by mouth once daily for 5 days. Take daily with food. 10 tablet 11/10/2023 11/15/2023 Start: 09-18-2022 End: 09-21-2022 take 2 tablets by mouth once daily predniSONE (DELTASONE) 20 mg tablet Indications: Sinobronchitis Take 2 tablets by mouth once daily for 3 days. 6 tablet 0 09/18/2022 09/21/2022 Active Start: 07-29-2022 End: 09-18-2022 take 1 tablet by mouth once daily predniSONE (DELTASONE) 20 mg tablet Indications: Sinobronchitis Take 1 tablet by mouth once daily. 5 tablet 0 07/29/2022 09/18/2022 Discontinued Start: 04-25-2022 End: 01-06-2023 take 3 tablets by mouth once daily Prednisone 20 mg tablet Discontinued 60 mg PO DAILY April 25, 2022 1:00am January 06, 2023 1:59pm Start: 04-25-2022 End: 01-06-2023 take 60 mg by mouth once daily Prednisone Discontinued 60 MG PO DAILY April 25, 2022 1:00am January 06, 2023 1:59pm Start: 01-07-2019 End: 02-11-2019 take 3 tablets by mouth once daily Prednisone 20 MG tablet Discontinued 60 mg PO DAILY January 07, 2019 12:00am February 11, 2019 10:16am Start: 01-07-2019 End: 02-11-2019 take 60 mg by mouth once daily Prednisone Discontinued 60 MG PO DAILY January 07, 2019 12:00am February 11, 2019 10:16am Comment on above: [facility] Take 2 tablets by mo [facility] once daily for 3 days. topiramate 200 mg oral tablet (20 sources) Start: 06-01-2019 Topamax 200 mg oral tablet Dose : 400 mg = 2 tab(s), Oral, BID Start Date: 06/01/19 Status: Ordered Repeat number: 1 Start: 06-30-2016 take 2 tablets by mo ut twice daily topiramate (TOPAMAX) 200 mg tablet Take 2 tablets by mouth twice daily. 0 06/30/2016 Active Start: 02-19-2013 End: 02-11-2019 take 2 tablets by mouth twice daily Topiramate 100 MG tablet Discontinued 200 mg PO TWICE A DAY February 19, 2013 12:00am February 11, 2019 10:12am Start: 02-19-2013 End: 02-11-2019 take 200 mg by mouth twice daily Topiramate Discontinued 200 MG PO TWICE A DAY February 19, 2013 12:00am February 11, 2019 10:12am Comment on above: Take 2 tablets by mo ut twice daily. traZODone hydrochloride 100 mg oral tablet (16 sources) Serotonin Reuptake Inhibitor Start: 5 take 1 tablet by mouth once daily at bedtime traZODone (DESYREL) 100 mg tablet Take 1 tablet by mouth daily at bedtime. 11/09/2024 Active Start: 02-11-2019 End: 05-17-2019 take 200 mg by mouth at bedtime Trazodone Discontinued 200 MG PO AT BEDTIME February 11, 2019 12:00am May 17, 2019 2:03pm Start: 02-22-2018 End: 09-10-2020 take 2 tablets by mouth at bedtime Trazodone 100 mg tablet Discontinued 200 mg PO AT BEDTIME February 11, 2019 12:00am May 17, 2019 2:03pm vitamin b12 1 mg oral tablet (2 sources) Vitamin B12 Start: 11-09-2024 take 1 tablet by mouth once daily cyanocobalamin (VITAMIN B-12) 1,000 mcg tab Take 1 tablet by mouth once daily. 11/09/2024 Active zonisamide 100 mg oral capsule (20 sources) Anti-epileptic Agent Start: 11-09-2024 End: 11-09-2024 take 2 capsules by mouth twice daily zonisamide (ZONEGRAN) 100 mg capsule 2 capsules by mouth twice daily 11/09/2024 Active Start: 01-30-2022 take 200 mg by mouth twice daily Zonisamide Active 200 MG PO TWICE A DAY January 30, 2022 12:00am Start: 06-03-2019 End: 01-30-2022 take 200 mg by mouth twice daily Zonisamide Discontinued 200 MG PO TWICE A DAY June 03, 2019 12:00am January 30, 2022 12:00pm Start: 06-03-2019 End: 01-30-2022 take 200 mg by mouth twice daily Zonisamide Discontinued 200 MG PO TWICE A DAY June 03, 2019 1:00am January 30, 2022 1:00pm Start: 06-01-2019 End: 01-30-2022 take 1 capsule by mouth twice daily Zonisamide 100 MG capsule Discontinued 200 mg PO TWICE A DAY June 03, 2019 1:00am January 30, 2022 1:00pm Start: 11-02-2015 End: 02-11-2019 take 1 capsule by mouth twice daily Zonisamide 50 MG capsule Discontinued 100 mg PO TWICE A DAY November 02, 2015 12:00am February 11, 2019 10:12am Start: 11-02-2015 End: 02-11-2019 take 100 mg by mouth twice daily Zonisamide Discontinued 100 MG PO TWICE A DAY November 02, 2015 12:00am February 11, 2019 10:12am Comment on above: Take 100 mg by mouth once daily. 2 capsules by mouth twice daily Completed/Discontinued Medications Medication Drug Class(es) Dates Sig (Normalized) Sig (Original) amoxicillin 875 mg / clavulanate 125 mg oral tablet (20 sources) Penicillin-class Antibacterial Start: 09-05-2024 End: 11-09-2024 take 1 tablet by mouth twice daily amoxicillin-clavul anate potassium (AUGMENTIN) 875-125 mg per tablet Indications: Acute bronchitis, unspecified organism Take 1 tablet by mouth two times a day. 20 tablet 09/05/2024 11/09/2024 Discontinued (Course of therapy completed) Start: 11-10-2023 End: 12-20-2023 Amoxicillin-Pot Clavulanate 875-125 mg tablet Discontinued 1 {tbl} PO TWICE A DAY November 12, 2023 12:00am December 06, 2023 8:33pm Start: 10-09-2023 End: 10-19-2023 take 1 tablet by mouth twice daily amoxicillin-clavulanate potassium (AUGMENTIN) 875-125 mg per tablet Indications: Acute bronchitis, unspecified organism Take 1 tablet by mouth two times a day for 10 days. 20 tablet 0 10/09/2023 10/19/2023 Active Start: 08-11-2023 End: 08-25-2023 take 1 tablet by mouth twice daily amoxicillin-clavulanate potassium (AUGMENTIN) 875-125 mg per tablet Indications: Non-recurrent acute suppurative otitis media of right ear without spontaneous rupture of tympanic membrane Take 1 tablet by mouth two times a day for 14 days. 28 tablet 0 08/11/2023 08/25/2023 Start: 05-27-2023 End: 06-06-2023 take 1 tablet by mouth twice daily amoxicillin-clavulanate potassium (AUGMENTIN) 875-125 mg per tablet Indications: Non-recurrent acute suppurative otitis media of right ear without spontaneous rupture of tympanic membrane Take 1 tablet by mouth two times a day for 10 days. 20 tablet 0 05/27/2023 06/06/2023 Active Start: 09-18-2022 End: 09-25-2022 take 1 tablet by mouth twice daily amoxicillin-clavulanic acid (AUGMENTIN) 875-125 mg per tablet Indications: Sinobronchitis Take 1 tablet by mouth twice daily for 7 days. 14 tablet 0 09/18/2022 09/25/2022 Active Start: 06-16-2022 End: 06-21-2022 take 1 tablet by mouth twice daily amoxicillin-clavulanic acid (AUGMENTIN) 875-125 mg per tablet Take 1 tablet by mouth twice daily for 5 days. 10 tablet 0 06/16/2022 06/21/2022 Active Start: 05-16-2022 End: 05-26-2022 take 1 tablet by mouth twice daily amoxicillin-clavulanic acid (AUGMENTIN) 875-125 mg per tablet Indications: Sinobronchitis Take 1 tablet by mouth twice daily for 10 days. 20 tablet 0 05/16/2022 05/26/2022 Active Start: 02-11-2022 End: 02-21-2022 Amoxicillin-Pot Clavulanate 875-125 mg tablet Discontinued 1 {tbl} PO Q12H 20 February 11, 2022 12:00am February 20, 2022 12:00am February 21, 2022 12:04am Start: 02-11-2022 End: 02-21-2022 take 1 tablet by mouth every twelve hours Amoxicillin-Pot Clavulanate Discontinued 1 TABLET PO Q12H 20 February 11, 2022 12:00am February 21, 2022 12:04am Start: 06-03-2019 End: 01-30-2022 take 1 tablet by mouth twice daily amoxicillin-clavulanic acid (AUGMENTIN) 875-125 mg per tablet Indications: Sinobronchitis Take 1 tablet by mouth twice daily for 10 days. 20 tablet 0 01/06/2022 01/16/2022 Active Start: 06-03-2019 End: 01-30-2022 take 1 tablet by mouth twice daily Amoxicillin-Pot Clavulanate Discontinued 1 TABLET PO TWICE A DAY June 03, 2019 1:00am January 30, 2022 1:06pm Start: 06-01-2019 End: 06-08-2019 take 1 tablet by mouth every twelve hours amoxicillin-clavulanate 875 mg-125 mg oral tablet 1 tab(s), Oral, q12h, # 14 tab(s), 0 Refill(s), 111.4 Start Date: 06/01/19 Stop Date: 06/08/19 Status: Ordered Comment on above: Take 1 tablet by tiffany th twice daily for 10 days. Take 1 tablet by tiffany th twice daily for 5 days. Take 1 tablet by tiffany th twice daily for 7 days. Take 1 tablet by tiffany th two times a day for 10 days. 3.2 ml ARIPiprazole lauroxil 276 mg/ml prefilled syringe (13 sources) Start: 11-12-2017 End: 02-11-2019 Aripiprazole Lauroxil 882 mg/3.2 mL suspension,extended rel syring Discontinued 1 NMA IM EVERY WEEK November 12, 2017 12:00am February 11, 2019 10:16am Start: 11-12-2017 End: 02-11-2019 inject 1 dose by intramuscular injection every week Aripiprazole Lauroxil Discontinued 1 DOSE IM EVERY WEEK November 12, 2017 12:00am February 11, 2019 10:16am benzonatate 100 mg oral capsule (20 sources) Non-narcotic Antitussive Start: 05-13-2023 End: 12-06-2023 take 1 capsule by mouth three times daily Benzonatate 100 mg capsule Discontinued 100 mg PO THREE TIMES A DAY August 31, 2023 12:00am December 06, 2023 8:34pm Start: 01-30-2023 End: 03-24-2023 take 1 capsule by mouth every eight hours as needed for cough and cough benzonatate (TESSALON PERLE) 100 mg capsule Indications: Cough, unspecified type Take 1 capsule by mouth three times a day as needed. 30 capsule 1 03/24/2023 Active Start: 12-24-2022 End: 01-03-2023 take 1 capsule by mouth three times daily as needed for cough benzonatate (TESSALON PERLES) 100 mg capsule Indications: Chronic cough Take 1 capsule by mouth three times daily as needed for cough for up to 10 days. 30 capsule 1 12/24/2022 01/03/2023 Active Start: 04-02-2022 End: 12-21-2022 take 1 capsule by mouth three times daily as needed for cough benzonatate (TESSALON PERLES) 100 mg capsule Indications: Acute cough Take 1 capsule by mouth three times daily as needed for cough. 30 capsule 1 04/02/2022 05/16/2022 Discontinued Start: 12-09-2021 End: 03-05-2022 take 1 capsule by mouth every eight hours as needed for cough and cough benzonatate (TESSALON PERLES) 100 mg capsule Indications: Acute cough Take 1 capsule by mouth three times daily as needed for cough. 30 capsule 1 03/05/2022 Active Start: 09-30-2019 End: 11-09-2024 take 2 capsules by mouth three times daily as needed benzonatate (TESSALON PERLES) 100 mg capsule Indications: Acute bronchitis, unspecified organism Take 2 capsules by mouth three times a day as needed. 30 capsule 09/05/2024 11/09/2024 Discontinued (Course of therapy completed) Start: 09-30-2019 End: 02-11-2022 take 200 mg by mouth three times daily Benzonatate Active 200 MG PO THREE TIMES A DAY February 11, 2022 12:00am Start: 02-11-2019 End: 05-17-2019 take 1 capsule by mouth three times daily as needed for cough Benzonatate 100 mg capsule Discontinued 100 mg PO THREE TIMES A DAY as needed for Cough February 11, 2019 10:05am May 17, 2019 2:05pm Start: 12-16-2018 End: 02-11-2019 take 2 capsules by mouth three times daily as needed for cough Benzonatate 100 MG capsule Discontinued 200 mg PO 3 TIMES DAILY NEEDED as needed for Cough December 16, 2018 12:00am February 11, 2019 10:16am Start: 12-16-2018 End: 02-11-2019 take 200 mg by mouth three times daily as needed Benzonatate Discontinued 200 MG PO 3 TIMES DAILY NEEDED December 16, 2018 12:00am February 11, 2019 10:16am Comment on above: Take 1 capsule by mo uth three times daily as needed for cough. Take 1 capsule by mo uth three times daily as needed for cough for up to 10 days. Take 1 capsule by mo uth three times a day as needed. bifidobacterium bifidum [id number] unt / bifidobacterium longum [id number] unt oral capsule (1 source) Start: 10-26-19 End: 09-11-19 take 1 capsule by mouth once daily bifidobacteri bifid.and longum (FLORAJEN BIFIDOBLEND) 460 mg (9-1 bill.cell) cap Indications: Loose stools Take 1 capsule by mouth once daily. 30 capsule 1 10/25/2018 09/10/2020 Discontinued (Course of therapy completed) cyclobenzaprine hydrochloride 10 mg oral tablet (20 sources) Muscle Relaxant Start: 05-13-19 End: 11-10-19 take 1 tablet by mouth every eight hours as needed cyclobenzaprine (FLEXERIL) 10 mg tablet Take 1 tablet by mouth three times a day as needed for muscle spasm. 90 tablet 5 07/07/2024 11/09/2024 Discontinued (Course of therapy completed) Start: 02-06-2023 End: 03-24-2023 take 1 tablet by mouth every eight hours as needed cyclobenzaprine (FLEXERIL) 10 mg tablet Take 1 tablet by mouth three times a day as needed for muscle spasm. 30 tablet 2 03/24/2023 Active Comment on above: Take 1 tablet by tiffany three times a day as needed for muscle spasm. dextromethorphan hydrobromide 2 mg/ml / guaiFENesin 40 mg/ml oral suspension (20 sources) Uncompetitive A-fndrji-X-aspartate Receptor Antagonist, Sigma-1 Agonist Start: 024 End: take 5 mL by mouth every six hours as needed Dextromethorphan-gu aiFENesin (ROBITUSSIN DM) 10-200 mg/5 mL liqd Indications: Chronic cough Take 5 mL by mouth every 6 hours as needed. 118 mL 03/18/2024 11/09/2024 Discontinued (Course of therapy completed) diclofenac sodium 0.01 mg/mg topical gel (2 sources) Nonsteroidal Anti-inflammatory Drug Start: 022 End: apply 4 g topically four times daily diclofenac (VOLTAREN ARTHRITIS PAIN) 1 % topical gel Indications: Arthritis of knee Apply 4 g to affected area four times daily. 100 g 2 12/09/2021 12/10/2021 Discontinued Comment on above: Apply 4 g to affecte d area four times daily. drospirenone / Ethinyl Estradiol (20 sources) Progestin, Estrogen Start: 020 take 1 tablet by mouth once daily drospirenone-ethiny l estradiol 3 mg-0.02 mg oral tablet Take 1 tablet by mouth once daily. Start Date: 06/01/19 Status: Ordered Start: 05-06-2019 End: 03-06-2021 take 1 tablet by mouth once daily Drospirenone-Ethinyl Estradiol (ARNEL 28) 3-0.02 mg per tablet Indications: Encounter for medication refill Take 1 tablet by mouth once daily. 3 Package 1 05/06/2019 03/06/2021 Discontinued Start: 02-23-2019 End: 07-25-2019 Drospirenone-Ethinyl Estradi ol 3-0.02 mg tablet Discontinued 1 {tbl} PO DAILY February 23, 2019 3:36pm July 25, 2019 2:05pm Start: 02-23-2019 End: 07-25-2019 take 1 tablet by mouth once daily Drospirenone-Ethinyl Estradiol Discontinued 1 TABLET PO DAILY February 23, 2019 2:36pm July 25, 2019 1:05pm Start: 02-23-2019 End: 07-25-2019 take 1 tablet by mouth once daily Drospirenone-Ethinyl Estradiol Discontinued 1 TABLET PO DAILY February 23, 2019 3:36pm July 25, 2019 2:05pm Start: 10-06-2017 End: 02-23-2019 Drospirenone-Ethinyl Estradi ol 1 EACH tablet Discontinued 1 NMA PO DAILY October 06, 2017 12:00am February 23, 2019 3:39pm Start: 10-06-2017 End: 02-23-2019 Drospirenone-Ethinyl Estradi ol Discontinued 1 EACH PO DAILY October 05, 2017 11:00pm February 23, 2019 2:39pm Start: 10-06-2017 End: 02-23-2019 Drospirenone-Ethinyl Estradi ol Discontinued 1 EACH PO DAILY October 06, 2017 12:00am February 23, 2019 3:39pm fexofenadine hydrochloride 180 mg oral tablet (1 source) Histamine-1 Receptor Antagonist Start: 12-31-2018 End: 09-10-2020 take 1 tablet by mouth once daily fexofenadine (MELBA ALLERGY) 180 mg tablet Indications: Nasal congestion Take 1 tablet by mouth once daily. 30 tablet 5 12/31/2018 09/10/2020 Discontinued (Course of therapy completed) furosemide 40 mg oral tablet (13 sources) Loop Diuretic Start: 09-30-2019 End: 01-30-2022 take 1 tablet by mouth once daily Furosemide 40 MG tablet Discontinued 40 mg PO DAILY September 30, 2019 12:00am January 30, 2022 1:06pm ibuprofen 200 mg oral capsule (20 sources) Nonsteroidal Anti-inflammatory Drug Start: 02-11-2022 End: 06-08-2024 take 1 capsule by mouth every six hours as needed for pain Ibuprofen 200 mg capsule Discontinued 200 mg PO EVERY 6 HOURS as needed for pain February 11, 2022 12:00am June 09, 2024 12:46am Start: 06-01-2019 End: 06-08-2024 take 1-10 tablets by mouth every six hours as needed for pain Ibuprofen 600 MG tablet Discontinued 600 mg PO EVERY 6 HOURS NEEDED as needed for Pain 1-10 Or Fever June 16, 2020 1:00am June 09, 2024 12:46am Start: 05-07-2019 End: 01-30-2022 take 1 tablet by mouth four times daily as needed for pain Ibuprofen 600 MG tablet Discontinued 600 mg PO 4 TIMES DAILY as needed for Pain Or Fever May 07, 2019 3:12pm January 30, 2022 1:05pm Start: 02-11-2019 End: 05-17-2019 take 1 tablet by mouth every six hours as needed for pain Ibuprofen 600 mg tablet Discontinued 600 mg PO EVERY 6 HOURS as needed for pain February 11, 2019 12:00am May 17, 2019 2:04pm Comment on above: Take 1 tablet by tiffany th every 6 hours as needed for Pain. iloperidone 4 mg oral tablet (20 sources) Atypical Antipsychotic Start: 08-13-19 End: 09-06-19 take 1 tablet by mouth once daily at bedtime iloperidone (FANAPT) 4 mg tab Take 1 tablet by mouth daily at bedtime. 08/12/2017 09/05/2024 Discontinued (Course of therapy completed) Comment on above: Take 1 tablet by tiffany th daily at bedtime. Inhalational Spacing Device (BREATHERITE MDI SPACER) spcr (3 sources) Start: 02-18-20 End: 12-10-19 Inhalational Spacing Device (BREATHERITE MDI SPACER) spcr Indications: Viral URI For use with proair inhaler 1 Inhaler 02/17/2017 12/09/2021 Discontinued Start: 02-17-2017 End: 12-09-2021 Inhalational Spacing Device (BREATHERITE MDI SPACER) spcr Indications: Viral URI For use with proair inhaler 1 Inhaler 0 02/17/2017 12/09/2021 Discontinued Start: 02-17-2017 Inhalational S pacing Device (BREATHERITE MDI SPACER) spcr Indications: Viral URI For use with proair inhaler 1 Inhaler 0 02/17/2017 Active Comment on above: For use with proair inhaler 24 HR lacosamide 150 MG Extended Release Oral Capsule (20 sources) Anti-epileptic Agent Start: 06-09-2024 lacosamide 150 mg oral capsule, extended release Dose : 300 mg = 2 cap(s), Oral, qDay, 0 Refill(s), 111.4 Start Date: 06/09/24 Status: Ordered Repeat number: 1 Start: 06-08-2024 Lacosamide (La cosamide 150 Mg Tablet) 150 mg tablet Active 300 mg PO TWICE A DAY June 08, 2024 1:00am Start: 02-11-2019 End: 06-08-2024 Vimpat 200 mg oral tablet Do se : 400 mg = 2 tab(s), Oral, BID, 140.1 Start Date: 06/01/19 Status: Ordered Start: 02-11-2019 take 400 mg by mouth twice daily Lacosamide Active 400 MG PO TWICE A DAY February 11, 2019 12:00am Start: 06-30-2016 take 2 tablets by mo uth twice daily lacosamide (VIMPAT) 200 mg tab Take 2 tablets by mouth twice daily. 0 06/30/2016 Active Start: 11-02-2015 End: 02-11-2019 take 1 tablet by mouth twice daily Lacosamide 100 MG tablet Discontinued 200 mg PO TWICE A DAY November 02, 2015 12:00am February 11, 2019 10:14am Start: 11-02-2015 End: 02-11-2019 take 200 mg by mouth twice daily Lacosamide Discontinued 200 MG PO TWICE A DAY November 02, 2015 12:00am February 11, 2019 10:14am Comment on above: Take 2 tablets by [facility] twice daily. loratadine 10 mg oral tablet (13 sources) Start: 8 End: 9 take 1 tablet by mouth once daily Loratadine 10 MG tablet Discontinued 10 mg PO DAILY October 06, 2017 12:00am February 23, 2019 3:38pm Multivitamin 1 EACH tablet (1 source) Start: 8 End: 9 Multivitamin 1 EACH tablet Discontinued 1 NMA PO DAILY October 06, 2017 12:00am February 11, 2019 10:16am nystatin 100 unt/mg topical powder (20 sources) Polyene Antifungal Start: 1 End: 4 nystatin (NYSTOP) powder Apply 1 application to affected area four times daily. 60 g 3 03/06/2021 05/01/2023 Discontinued (Course of therapy completed) Comment on above: Apply 1 application to affected area four times daily. Nystatin, Bulk, 10 billion unit powd (5 sources) Start: 4 End: 4 Nystatin, Bulk, 10 billion unit powd Indications: Yeast infection of the skin 1 Application two times a day for 14 days. 1 Each 3 08/11/2023 08/25/2023 Start: 08-11-2023 End: 08-25-2023 Nystatin, Bulk, 10 billion u nit powd Indications: Yeast infection of the skin 1 Application two times a day for 14 days. 1 Each 3 08/11/2023 08/25/2023 Active Start: 12-24-2022 End: 01-07-2023 Nystatin, Bulk, 10 billion u nit powd Indications: Yeast infection of the skin 1 Application twice daily for 14 days. 1 Each 3 12/24/2022 01/07/2023 Active Comment on above: 1 Application twice daily for 14 days. oxybutynin chloride 5 mg oral tablet (20 sources) Cholinergic Muscarinic Antagonist Start: 0 End: 3 take 1 tablet by mouth three times daily oxybutynin (DITROPAN) 5 mg tablet Take 1 tablet by mouth three times daily. 84 tablet 5 12/10/2020 05/07/2022 Discontinued (Clinical Decision) Start: 02-23-2019 End: 01-30-2022 take 1 tablet by mouth twice daily Oxybutynin Chloride 5 mg tablet Discontinued 5 mg PO TWICE A DAY February 23, 2019 1:00am January 30, 2022 1:06pm Start: 01-07-2019 End: 02-11-2019 take 1 tablet by mouth twice daily Oxybutynin Chloride 5 MG tablet Discontinued 5 mg PO TWICE A DAY January 07, 2019 12:00am February 11, 2019 10:16am Comment on above: Take 1 tablet by tiffany th three times daily. 1.5 ml paliperidone palmitate 156 mg/ml prefilled syringe (16 sources) Atypical Antipsychotic Start: 06-01-2019 End: 11-12-2023 Paliperidone Palmitate 234 mg/1.5 mL syringe Discontinued 234 mg IM EVERY MONTH June 03, 2019 1:00am November 12, 2023 10:48am Start: 06-01-2019 pantoprazole 40 mg delayed release oral tablet (13 sources) Proton Pump Inhibitor Start: 10-06-2017 End: 02-11-2019 take 1 tablet by mouth once daily Pantoprazole 40 MG tablet Discontinued 40 mg PO DAILY October 06, 2017 12:00am February 11, 2019 10:16am risperiDONE 1 mg oral tablet (13 sources) Atypical Antipsychotic Start: 02-19-2013 End: 11-02-2015 take 1 tablet by mouth once daily Risperidone 1 MG tablet Discontinued 1 mg PO DAILY February 19, 2013 12:00am November 02, 2015 11:57pm sodium chloride 0.111 meq/ml nasal spray (1 source) Start: 05-14-2018 End: 09-10-2020 sodium chloride (SALINE MIST) 0.65 % nasal spray Use 1 [place] in the nose as needed for Cold/Allergy Symptoms. 1 Bottle 05/14/2018 09/10/2020 Discontinued (Course of therapy completed) therapeutic multivitamin (THERA VITAMIN) tablet (9 sources) Start: 09-05-2024 End: 11-09-2024 take 1 tablet by mouth once daily therapeutic multivitamin (THERA VITAMIN) tablet Take 1 tablet by mouth once daily. 90 tablet 3 09/05/2024 11/09/2024 Discontinued (Course of therapy completed) Start: 09-05-2024 take 1 tablet by tiffany th once daily therapeutic multivitamin (THERA VITAMIN) tablet Take 1 tablet by mouth once daily. 90 tablet 3 09/05/2024 Active therapeutic multivitamin ORAL Tab (20 sources) Start: 09-09-2006 End: 09-05-2024 take 1 tablet by mouth once daily therapeutic multivitamin ORAL Tab Take one(1) tablet daily. 0 09/09/2006 09/05/2024 Discontinued Start: 09-09-2006 take 1 tablet by tiffany th once daily therapeutic multivitamin ORAL Tab Take one(1) tablet daily. 0 09/09/2006 Active Comment on above: Take one(1) tablet d aily. triamcinolone acetonide 0.055 mg/actuat metered dose nasal spray (20 sources) Corticosteroid Start: End: take 1 spray(s) by inhalation once daily triamcinolone acetonide (NASACORT) 55 mcg nasal inhaler Indications: Post-nasal drip Use 1 [place] in the nose once daily. 16.9 mL 5 07/08/2023 09/01/2023 Discontinued Start: 02-11-2019 End: 02-23-2019 Triamcinolone Acetonide 0.02 5 % cream Discontinued 1 NMA TOPICAL TWICE A DAY February 11, 2019 12:00am February 23, 2019 3:39pm Start: 01-20-2018 End: 09-10-2020 Triamcinolone Acetonide Disc ontinued 1 APPLIC TOPICAL TWICE A DAY February 11, 2019 12:00am February 23, 2019 3:39pm Comment on above: Use 1 [place] in the n ose once daily. Problems Active Problems Problem Classification Problem Date Documented Date Episodic/Chronic Acute bronchitis (20 sources) Acute bronchitis; Translations: [Acute bronchitis, unspecified] Onset: 5 Episodic Adjustment disorders (20 sources) Adjustment disorder with depressed mood; Translations: [Adjustment disorder with depressed mood] 02-11-2005 Chronic Asthma (20 sources) Exacerbation of moderate persistent asthma; Translations: [Moderate persistent asthma with (acute) exacerbation] Onset: 6 Chronic Diabetes mellitus without complication (2 sources) Increased glucose level; Translations: [Other abnormal glucose] Episodic Epilepsy; convulsions (20 sources) Seizure disorder; Translations: [Epilepsy, unspecified, not intractable, without status epilepticus] Onset: 2 09-26-2011 Chronic Epilepsy; convulsions (3 sources) Seizure; Translations: [Unspecified convulsions] Onset: 4 03-08-2016 Episodic Esophageal disorders (20 sources) Gastroesophageal reflux disease; Translations: [Gastro-esophageal reflux disease without esophagitis] 02-11-2005 Chronic Genitourinary symptoms and ill-defined conditions (20 sources) Incontinence; Translations: [Mixed incontinence] Onset: 6 09-24-2005 Chronic Genitourinary symptoms and ill-defined conditions (12 sources) Dysuria; Translations: [Dysuria] Onset: 5 Episodic Immunizations and screening for infectious disease (2 sources) Suspected disease caused by 2019-nCoV; Translations: [Suspected COVID-19 virus infection] Episodic Intracranial injury (13 sources) Concussion injury of body structure; Translations: [Concussion] 06-04-2019 Episodic Menstrual disorders (20 sources) Irregular periods; Translations: [Irregular menstruation, unspecified] Onset: 2 Resolved: 3 10-27-2012 Chronic Miscellaneous mental health disorders (20 sources) Psychologic conversion disorder; Translations: [Dissociative and conversion disorder, unspecified] Onset: 5 Resolved: 6 02-11-2005 Chronic Mood disorders (2 sources) Depressive disorder 03-08-2016 Chronic Mycoses (2 sources) Candidiasis of skin; Translations: [Candidiasis of skin and nail] 12-24-2022 Episodic Osteoarthritis (14 sources) Arthritis of knee; Translations: [Unilateral primary osteoarthritis, unspecified knee] Chronic Other acquired deformities (2 sources) Curvature of spine; Translations: [Deforming dorsopathy, unspecified] 01-30-2023 Episodic Other and unspecified benign neoplasm (1 source) Hemangioma of skin; Translations: [Hemangioma of skin and subcutaneous tissue] 12-24-2022 Episodic Other diseases of veins and lymphatics (13 sources) Lymphedema; Translations: [Lymphedema, not elsewhere classified] 10-01-2019 Chronic Other ear and sense organ disorders (2 sources) Bilateral earache; Translations: [Otalgia, bilateral] Episodic Other endocrine disorders (20 sources) Hyperandrogenization syndrome; Translations: [Other ovarian dysfunction] Onset: 2 10-03-2011 Chronic Other endocrine disorders (20 sources) Hyperprolactinemia; Translations: [Hyperprolactinemia] Onset: 2 12-30-2011 Chronic Other endocrine disorders (20 sources) Polycystic ovary syndrome; Translations: [Polycystic ovarian syndrome] Onset: 2 12-30-2011 Chronic Other female genital disorders (12 sources) Vaginal bleeding; Translations: [Abnormal uterine and vaginal bleeding, unspecified] 05-03-2022 Chronic Other female genital disorders (1 source) Abnormal uterine and vaginal bleeding, unspecified; Translations: [Abnormal uterine and vaginal bleeding, unspecified] Onset: 4 Chronic Other lower respiratory disease (20 sources) Cough; Translations: [Cough] Episodic Other lower respiratory disease (13 sources) Dyspnea on exertion; Translations: [Other forms of dyspnea] 01-30-2022 Episodic Other lower respiratory disease (13 sources) H/O: asthma; Translations: [Personal history of other diseases of the respiratory system] 02-11-2019 Episodic Other lower respiratory disease (13 sources) Paroxysmal nocturnal dyspnea; Translations: [Dyspnea, unspecified] 02-23-2019 Episodic Comment on above: We will check a 2D e cho Other lower respiratory disease (3 sources) Other forms of dyspnea; Translations: [Other respiratory abnormalities] Episodic Other lower respiratory disease (2 sources) Dyspnea; Translations: [Shortness of breath] Episodic Other lower respiratory disease (5 sources) Shortness of breath; Translations: [Shortness of breath] 02-17-2023 Episodic Other lower respiratory disease (2 sources) Cough; Translations: [Acute cough] 04-10-2022 Episodic Other nervous system disorders (1 source) Other chronic pain; Translations: [Chronic pain of both knees] Onset: 5 Chronic Other nervous system disorders (1 source) Finding of hand region; Translations: [Tremor, unspecified] 10-09-2023 Episodic Other non-traumatic joint disorders (11 sources) Pain in right knee; Translations: [Pain in joint, lower leg] Onset: 4 12-11-2022 Episodic Other non-traumatic joint disorders (1 source) Hip pain; Translations: [Pain in right hip] 01-30-2023 Episodic Other non-traumatic joint disorders (2 sources) Acute ankle pain; Translations: [Pain in left ankle and joints of left foot] 09-05-2024 Episodic Other non-traumatic joint disorders (3 sources) Pain in left knee; Translations: [Pain in left knee] Onset: Episodic Other nutritional; endocrine; and metabolic disorders (20 sources) Morbid obesity; Translations: [Morbid (severe) obesity due to excess calories] Onset: 5 08-03-2014 Chronic Comment on above: BMI 54.3 Other nutritional; endocrine; and metabolic disorders (20 sources) Body mass index 40+ - severely obese; Translations: [Morbid (severe) obesity due to excess calories] Onset: 9 06-03-2018 Chronic Other nutritional; endocrine; and metabolic disorders (8 sources) Obesity; Translations: [Obesity, unspecified] 01-06-2023 Chronic Other nutritional; endocrine; and metabolic disorders (3 sources) Obesity, unspecified; Translations: [Obesity, unspecified] 01-06-2023 Chronic Other nutritional; endocrine; and metabolic disorders (6 sources) Morbid (severe) obesity due to excess calories; Translations: [Morbid obesity] Onset: 5 02-17-2023 Chronic Other nutritional; endocrine; and metabolic disorders (1 source) Severe obesity; Translations: [Class 3 severe obesity with body mass index (BMI) of 50.0 to 59.9 in adult, unspecified obesity type, unspecified whether serious comorbidity present (HCC)] 11-09-2024 Chronic Other nutritional; endocrine; and metabolic disorders (1 source) Body mass index (BMI) 50.0-59.9, adult; Translations: [Class 3 severe obesity with body mass index (BMI) of 50.0 to 59.9 in adult, unspecified obesity type, unspecified whether serious comorbidity present (HCC)] Onset: Chronic Other skin disorders (1 source) Skin lesion; Translations: [Disorder of the skin and subcutaneous tissue, unspecified] Episodic Other skin disorders (2 sources) Skin tag; Translations: [Other hypertrophic disorders of the skin] 09-01-2023 Episodic Other upper respiratory disease (1 source) Nasal congestion; Translations: [Nasal congestion] Episodic Other upper respiratory disease (4 sources) Nasal discharge; Translations: [Other specified disorders of nose and nasal sinuses] Episodic Other upper respiratory disease (1 source) Congestion of nasal sinus; Translations: [Nasal congestion] 12-11-2022 Episodic Other upper respiratory infections (12 sources) Chronic sinusitis; Translations: [Chronic sinusitis, unspecified] Onset: 4 Chronic Otitis media and related conditions (18 sources) Acute bilateral otitis media ; Translations: [Otitis media, unspecified, bilateral] Episodic Residual codes; unclassified (5 sources) Hypersomnia, unspecified; Translations: [Hypersomnia, unspecified] 02-17-2023 Chronic Residual codes; unclassified (1 source) Edema; Translations: [Edema, unspecified] 11-12-2023 Episodic Schizophrenia and other psychotic disorders (20 sources) Delusional disorder; Translations: [Delusional disorders] Onset: 7 11-10-2016 Chronic Syncope (3 sources) Vasovagal syncope; Translations: [Syncope and collapse] 07-08-2023 Episodic Unclassified (16 sources) History of mental retardation Unclassified (2 sources) Chronic pain of both knees 08-04-2024 Unclassified (1 source) Acute cough; Translations: [Acute cough] Onset: 5 Unclassified (1 source) Class 3 severe obesity with body mass index (BMI) of 50.0 to 59.9 in adult, unspecified obesity type, unspecified whether serious comorbidity present (HCC); Translations: [Class 3 severe obesity with body mass index (BMI) of 50.0 to 59.9 in adult, unspecified obesity type, unspecified whether serious comorbidity present (HCC)] Onset: 5 Unclassified (1 source) Acute midline low back pain without sciatica; Translations: [Acute midline low back pain without sciatica] Onset: 4 Viral infection (1 source) Viral disease; Translations: [Viral infection, unspecified] Episodic Past or Other Problems Problem Classification Problem Date Documented Date Episodic/Chronic Abdominal pain (6 sources) Flank pain; Translations: [Unspecified abdominal pain] Onset: 09-18-2023 Episodic Chronic obstructive pulmonary disease and bronchiectasis (1 source) Bronchitis, not specified as acute or chronic; Translations: [Sinobronchitis] Onset: 12-31-2023 Episodic E Codes: Fall (3 sources) Fall; Translations: [Unspecified fall, initial encounter] Onset: 12-31-2023 12-30-2023 Episodic Malaise and fatigue (20 sources) Malaise and fatigue; Translations: [Other malaise] Onset: 12-30-2004 Resolved: 11-06-2014 11-06-2014 Episodic Nonspecific chest pain (20 sources) Atypical chest pain; Translations: [Other chest pain] Onset: 07-27-2023 Episodic Other connective tissue disease (20 sources) Muscle pain; Translations: [Myalgia and myositis, unspecified] Resolved: 05-08-2014 05-08-2014 Episodic Other lower respiratory disease (6 sources) Chronic cough; Translations: [Chronic cough] Onset: 01-21-2024 12-24-2022 Episodic Other non-traumatic joint disorders (1 source) Pain in left ankle and joints of left foot; Translations: [Acute left ankle pain] Onset: 08-12-2024 Episodic Other screening for suspected conditions (not mental disorders or infectious disease) (20 sources) Cardiovascular stress test abnormal; Translations: [Abnormal result of other cardiovascular function study] Onset: 07-27-2023 02-18-2022 Episodic Other skin disorders (20 sources) Hirsutism; Translations: [Hirsutism] Onset: 10-03-2011 10-03-2011 Episodic Other upper respiratory infections (20 sources) Upper respiratory infection; Translations: [Acute upper respiratory infection, unspecified] Onset: 01-21-2024 Episodic Residual codes; unclassified (1 source) Edema, unspecified; Translations: [Edema, unspecified] Onset: 01-06-2024 Episodic Spondylosis; intervertebral disc disorders; other back problems (20 sources) Low back pain; Translations: [Low back pain] Onset: 05-11-2013 05-11-2013 Episodic Sprains and strains (20 sources) Sprain of knee; Translations: [Sprain of other specified parts of right knee, sequela] Onset: 07-16-2017 07-16-2017 Episodic Unclassified (1 source) Patient encounter status 06-28-2024 Results Test Name Value Interpretation Reference Range Facility CBC W Auto Differential pane l (Bld)on 11-28-2024 Basophils (Bld) [#/Vol] [facility] Basophils/100 WBC (Bld) 0.1 % [facility] Differential cell count method Nom (Bld) Auto [facility] Eosin[facility] (Bld) [#[facility]Vol[facility] Eosinophils/100 WBC (Bld) 0.0 % [facility] Erythrocyte distribution width (RBC) [Ratio] 13.2 % 11.5 - 15.0 % [facility] Hematocrit (Bld) [Volume fraction] 47.3 % High 36.0 - 46.0 % [facility] Hemoglobin (Bld) [Mass/Vol] 15.4 g/dL 11.5 - 15.5 g/dL [facility] Immature granulocytes (Bld) [#/Vol] [facility] Immature granulocytes/100 WBC (Bld) 0.2 % [facility] Interpretation and review of laboratory results Abnormal [facility] Lymphocytes (Bld) [#/Vol] 2.02 10*3/uL [facility] Lymphocytes/100 WBC (Bld) 24.1 % [facility] MCH (RBC) [Entitic mass] 29.2 pg 26. 0 - 34.0 pg [facility] MCHC (RBC) [Mass/Vol] 32.6 g/dL 30.5 - 36.0 g/dL [facility] MCV (RBC) [Entitic vol] 89.8 fL 80.0 - 100.0 fL [facility] Monocytes (Bld) [#/Vol] 0.75 10*3/uL [facility] Monocytes/100 WBC (Bld) 8.9 % [facility] Neutrophils (Bld) [#/Vol] 5.58 10*3/uL [facility] Neutrophils/100 WBC (Bld) 66.7 % [facility] Nucleated RBC (Bld) [#/Vol] [facility] Nucleated RBC/100 WBC (Bld) [Ratio] 0.0 % /100 WBC [facility] Platelet mean volume (Bld) [Entitic vol] 9.6 fL 9.0 - 12.7 fL [facility] Platelets (Bld) [#/Vol] 312 10*3/uL [facility] RBC (Bld) [#/Vol] 5.27 10*6/uL High 3.90 - 5.20 m/uL [facility] WBC (Bld) [#/Vol] 8.38 10*3/uL [facility] CNOVon 11-09-2024 CNOV Office Visit (FAMPWS ) ----- MARIA DEL ROSARIO LAWS ([id number]) 1980 F Date Time Provider Department 11/09/24 11:40 AM [facility] During your visit today, we recorded the following information about you: Temperature Pulse Respiration Blood pressure 98.3 degrees 86/minute 18/minute 116/78 Weight 132 kg Jacki Zaragoza APRN.[employer] WET PROCESS 11/09/2024 12:29 PM Signed 11/09/2024 Patient presents with: Physical Recording using [email or web address] software for draft documentation of the visit was discussed with the patient/authorized self pay representative; all questions welcomed and answered. Patient/authorized self pay representative agreed to proceed SUBJECTIVE: This is a 44 year old that is here today for Above Complaints.. . Seizures: - Last seen by neurology in June; no medication changes made. - Two seizures since last neurology visit; neurologist notified, no medication changes. - Current medications: topiramate 200 mg BID, Keppra 750 mg BID, Vimpat 2 tablets BID, Zonisamide 200 mg BID. Psychiatry - Managed by a psychiatrist at a counseling center. - Recent medication changes due to issues with an injectable medication. - Current medications: citalopram 20 mg daily, olanzapine 10 mg at bedtime, trazodone 100 mg at bedtime. Asthma: - Uses Advair Diskus BID and albuterol inhaler PRN. Chest Pain and Dyspnea: - Chronic chest pain and dyspnea. - Follow-up with cardiology scheduled for January 09. - CT coronary with IV contrast ordered in March; not yet completed. Cough: - Productive cough with green sputum x1 month. - Reports subjective fevers >100?F, though family member denies fever. Knee Pain: - Chronic bilateral knee pain x2 years, following a fall. - X-rays performed; family member reports bone deterioration. PAST MEDICAL HISTORY Diagnosis Date Abnormal result of cardiovascular function study Adjustment disorder with depressed mood Chest pain Chronic factitious illness with physical symptoms Closed fracture of unspecified bone right arm Closed fracture of unspecified bone left ankle Esophageal reflux Myalgia and myositis, unspecified Other forms of dyspnea Seizure disorder (HCC) 09/26/2011 SOB (shortness of breath) Unspecified asthma, with status asthmaticus ALLERGIES Dayquil Liquicaps [Kpuvzngon-Sk-Af-Acetamin ophen], Arithromycin [Azithromycin], Doxycycline, Latex, Mucinex Dm [Dextromethorphan-Guaifen esin], Risperdal [Risperidone], Strawberries, Tamiflu [Oseltamivir Phosphate], Topiramate, Bextra [Valdecoxib], and Cephalexin MEDICATIONS Current Outpatient Medications Medication Sig OLANZapine orally disintegrating (ZYPREXA ZYDIS) 10 mg disintegrating tablet Take 1 tablet by mouth daily at bedtime. traZODone (DESYREL) 100 mg tablet Take 1 tablet by mouth daily at bedtime. cyanocobalamin (VITAMIN B-12) 1,000 mcg tab Take 1 tablet by mouth once daily. zonisamide (ZONEGRAN) 100 mg capsule 2 capsules by mouth twice daily montelukast (SINGULAIR) 10 mg tablet Take 1 tablet by mouth daily at bedtime. omeprazole (PRILOSEC) 40 mg capsule Take 1 capsule by mouth once daily. cetirizine (ZYRTEC) 10 mg tablet Take 1 tablet by mouth once daily. levETIRAcetam (KEPPRA) 750 mg tablet Take 1 tablet by mouth two times a day. albuterol HFA (VENTOLIN HFA) 90 mcg/actuation inhaler Inhale 2 puffs as instructed every 4 hours as needed for wheezing/shortness of breath. fluticasone-salmeterol (ADVAIR DISKUS) 250-50 mcg/dose inhaler Inhale 1 puff as instructed two times a day. Rinse and gargle mouth after use with water. metoprolol succinate ER (TOPROL XL) 25 mg 24 hr tablet Take 1 tablet by mouth once daily. TYLENOL ARTHRITIS PAIN 650 mg CR tablet Take 1 tablet by mouth every 8 hours as needed. citalopram (CELEXA) 20 mg tablet 20 mg once daily. 1 tablet daily topiramate (TOPAMAX) 200 mg tablet Take 2 tablets by mouth twice daily. lacosamide (VIMPAT) 200 mg tab Take 2 tablets by mouth twice daily. No current facility-administered medications for this visit. Medications and allergies reviewed by this provider. SOCIAL HISTORY Social History Tobacco Use Smoking status: Never Smokeless tobacco: Never Substance Use Topics Alcohol use: No Drug use: No REVIEW OF SYSTEMS GENERAL: No weight loss, malaise HEENT: Negative for frequent or significant headaches, No changes in hearing or vision, no nose bleeds or other nasal problems NECK: Negative for lumps, goiter, pain and significant neck swelling RESPIRATORY: See HPI CARDIOVASCULAR: See HPI GI: No nausea, vomiting, or diarrhea : No history of dysuria, frequency or incontinence [employer]: Negative for abnormal vaginal bleeding, abnormal vaginal discharge MUSCULOSKELETAL: Hx of chronic knee pain bilaterally SKIN: Negative for lesions, rash, and itching PSYCH: See HPI HEMATOLOGY/LYMPHOLOGY: Negative for prolonged bleeding, bruising easily (more content not included)... [facility] (RADHAWS[facility] ----- MARIA DEL ROSARIO LAWS ([id number]) 1980 F Date Time Provider Department 11/07/24 JACKI ZARAGOZA During your visit today, we recorded the following information about you: Jacki Zaragoza APRN.CNP 11/07/2024 8:03 AM Signed Chart says patient needs scheduled for 40 minute appointments. Please schedule appropriately. Jacki Zaragoza APRN.CNP Allergies As of Date: 11/07/2024 Noted Allergy Reaction DAYQUIL LIQUICAPS ([id number]* 3 14 - Other: See Comments Comments: Caused Seizure ARITHROMYCIN (AZITHROMYCIN) 10/27/2012 8 - GI Upset Comments: Z-Pack DOXYCYCLINE 07/22/2008 8 - GI Upset LATEX 08/21/2005 2 - Rash MUCINEX DM (DEXTROMETHORPHAN-GUAI* 5 - Intolerance Comments: gran mal seizure. [...] Intolerance Comments: Amoxil is ok Date Reviewed: 09/05/2024 Reviewed by: Chantel Townsend MA - Fully Assessed Prescriptions as of 11/07/2024 - montelukast (SINGULAIR) 10 mg tablet Take 1 tablet by mouth daily at bedtime. - omeprazole (PRILOSEC) 40 mg capsule Take 1 capsule by mouth once daily. - cetirizine (ZYRTEC) 10 mg tablet Take 1 tablet by mouth once daily. - levETIRAcetam (KEPPRA) 750 mg tablet Take 1 tablet by mouth two times a day. - therapeutic multivitamin (THERA VITAMIN) tablet Take 1 tablet by mouth once daily. - benzonatate (TESSALON PERLES) 100 mg capsule Take 2 capsules by mouth three times a day as needed. - amoxicillin-clavulanate potassium (AUGMENTIN) 875-125 mg per tablet Take 1 tablet by mouth two times a day. - albuterol HFA (VENTOLIN HFA) 90 mcg/actuation inhaler Inhale 2 puffs as instructed every 4 hours as needed for wheezing/shortness of breath. - fluticasone-salmeterol (ADVAIR DISKUS) 250-50 mcg/dose inhaler Inhale 1 puff as instructed two times a day. Rinse and gargle mouth after use with water. - cyclobenzaprine (FLEXERIL) 10 mg tablet Take 1 tablet by mouth three times a day as needed for muscle spasm. - metoprolol succinate ER (TOPROL XL) 25 mg 24 hr tablet Take 1 tablet by mouth once daily. - Dextromethorphan-guaiFENe sin (ROBITUSSIN DM) 10-200 mg/5 mL liqd Take 5 mL by mouth every 6 hours as needed. - TYLENOL ARTHRITIS PAIN 650 mg CR tablet Take 1 tablet by mouth every 8 hours as needed. - benztropine (COGENTIN) 1 mg tablet TAKE 1 AND 1/2 (ONE AND ONE-HALF) TABLETS BY MOUTH IN THE MORNING and ONE TABLET AT BEDTIME - citalopram (CELEXA) 20 mg tablet 20 mg once daily. 1 tablet daily - zonisamide (ZONEGRAN) 100 mg capsule Take 100 mg by mouth once daily. 2 capsules by mouth twice daily - topiramate (TOPAMAX) 200 mg tablet Take 2 tablets by mouth twice daily. - lacosamide (VIMPAT) 200 mg tab Take 2 tablets by mouth twice daily. Meds Comments as of 01/02/2018: September 26, 2017 currently taking vimpat, topamax and zonegran December 09, 2017 does not have list, unable to verify list. [place] 01-02-18 Taking Vimpat, Zonegran, and Albuterol. Linda Wall RN Problem List As Of Date 11/07/2024 Noted Resolved Other malaise and fatigue [R53.81, R53.83] 12/30/2004 11/06/2014 Myalgia and myositis, unspecified [[id number]] 05/08/2014 ESOPHAGEAL REFLUX [K21.9] Chronic factitious illness [...] [S9*07/16/2017 Obesity, Class III, BMI >= 40 [E66.813] 06/03/2018 Abnormal nuclear cardiac imaging test [R93.1] 07/27/2023 Other chest pain [R07.89] 07/27/2023 Encounter Status:Closed by OLIMPIA BELL on 11/07/24 Normal [facility] CNPNon 10-22-2024 CNPN Telephone (FAMPWS) ----- MARIA DEL ROSARIO LAWS ([id number]) 1980 F Date Time Provider Department [facility] During your visit today, we recorded the following information about you: Idalia Johnston 10/22/2024 11:53 AM Signed Mother, Kennedi, called to report that she found a note in her purse that the patient needed to request a referral to [employer] for her PCOS dx. PSS unable to find recent documented conversation regarding PCP needing to place referral. Mother unsure if the provider she made the note for was within [facility]. Patient last seen for PCOS By Dr. Moeller on . Patient is overdue to annual women's health exam. Mother declined to schedule patient for annual or OV in gynecology until she heard back from PCP. Please contact Kennedi to advise. Shima Hahn, PIERO 10/24/2024 9:59 AM Signed Pt has not been seen in our office for PCOS since 2018. PIERO Dill Tara, PIERO 10/24/2024 5:07 PM Signed Call placed to Pt's mother-informed her that according to Dr. Pitts's note from 07/2023, Pt should see Urology. Pt's mother states Pt has not seen any other provider for PCOS. She states she is wheelchair bound, has a lot of health problems, and her mind has been slipping and she just found this slip of paper in her purse so that is why she called. Informed her Pt also is due for an annual exam. She states she would like Pt seen soon for PCOS as well as fact that Pt has yeast infection under breast, under abdominal folds and she does have powder, but Pt will not use. Offered appointments this week; however, do not work for Pt's mother to bring her. Appt scheduled for 06/07/24. Shima Hahn RN Allergies As of Date: 10/22/2024 Noted Allergy Reaction DAYQUIL LIQUICAPS ([id number]* 3 14 - Other: See Comments Comments: Caused Seizure ARITHROMYCIN (AZITHROMYCIN) 10/27/2012 8 - GI Upset Comments: Z-Pack DOXYCYCLINE 07/22/2008 8 - GI Upset LATEX 08/21/2005 2 - Rash MUCINEX DM (DEXTROMETHORPHAN-GUAI* 5 - Intolerance Comments: gran mal seizure. [...] Intolerance Comments: Amoxil is ok Date Reviewed: 09/05/2024 Reviewed by: Chantel Townsend MA - Fully Assessed Reason for Visit: Internal Referrals/resources [908] Prescriptions as of 10/24/2024 - montelukast (SINGULAIR) 10 mg tablet Take 1 tablet by mouth daily at bedtime. - omeprazole (PRILOSEC) 40 mg capsule Take 1 capsule by mouth once daily. - cetirizine (ZYRTEC) 10 mg tablet Take 1 tablet by mouth once daily. - levETIRAcetam (KEPPRA) 750 mg tablet Take 1 tablet by mouth two times a day. - therapeutic multivitamin (THERA VITAMIN) tablet Take 1 tablet by mouth once daily. - benzonatate (TESSALON PERLES) 100 mg capsule Take 2 capsules by mouth three times a day as needed. - amoxicillin-clavulanate potassium (AUGMENTIN) 875-125 mg per tablet Take 1 tablet by mouth two times a day. - albuterol HFA (VENTOLIN HFA) 90 mcg/actuation inhaler Inhale 2 puffs as instructed every 4 hours as needed for wheezing/shortness of breath. - fluticasone-salmeterol (ADVAIR DISKUS) 250-50 mcg/dose inhaler Inhale 1 puff as instructed two times a day. Rinse and gargle mouth after use with water. - cyclobenzaprine (FLEXERIL) 10 mg tablet Take 1 tablet by mouth three times a day as needed for muscle spasm. - metoprolol succinate ER (TOPROL XL) 25 mg 24 hr tablet Take 1 tablet by mouth once daily. - Dextromethorphan-guaiFENe sin (ROBITUSSIN DM) 10-200 mg/5 mL liqd Take 5 mL by mouth every 6 hours as needed. - TYLENOL ARTHRITIS PAIN 650 mg CR tablet Take 1 tablet by mouth every 8 hours as needed. - benztropine (COGENTIN) 1 mg tablet TAKE 1 AND 1/2 (ONE AND ONE-HALF) TABLETS BY MOUTH IN THE MORNING and ONE TABLET AT BEDTIME - citalopram (CELEXA) 20 mg tablet 20 mg once daily. 1 tablet daily - zonisamide (ZONEGRAN) 100 mg capsule Take 100 mg by mouth once daily. 2 capsules by mouth twice daily - topiramate (TOPAMAX) 200 mg tablet Take 2 tablets by mouth twice daily. - lacosamide (VIMPAT) 200 mg tab Take 2 tablets by mouth twice daily. Meds Comments as of 01/02/2018: September 26, 2017 currently taking vimpat, topamax and zonegran December 09, 2017 does not have list, unable to verify list. Aurora Doan Ma 01-02-18 Taking Vimpat, Zonegran, and Albuterol. Linda Wall RN Problem List As Of Date 10/22/2024 Noted Resolved Other malaise and fatigue (more content not included)... Normal [facility] CNPNon 10-04-2024 CNPN Telephone (FAMPWS) ----- MARIA DEL ROSARIO LAWS ([id number]) 1980 F Date Time Provider Department 10/04[facility] During your visit today, we recorded the following information about you: Johnston Idalia 10/04/2024 9:09 AM Addendum Patient's mother, Kennedi, called to report that the patient was unable to arrive for today's wellness visit. 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 She reports that the patient experiences seizures if wakened too early in the morning. PSS scheduled patient to provider's next available opening on 01/07/25. Patient has been placed on [facility]'s wait list. Mother requested for PSS to notify provider of patient's situation. Daniel Tan MD 10/04/2024 11:26 AM Signed Noted Daniel Tan MD Allergies As of Date: 10/04/2024 Noted Allergy Reaction DAYQUIL LIQUICAPS ([id number]* 3 14 - Other: See Comments Comments: Caused Seizure ARITHROMYCIN (AZITHROMYCIN) 10/27/2012 8 - GI Upset Comments: Z-Pack DOXYCYCLINE 07/22/2008 8 - GI Upset LATEX 08/21/2005 2 - Rash MUCINEX DM (DEXTROMETHORPHAN-GUAI* 5 - Intolerance Comments: gran mal seizure. [...] Intolerance Comments: Amoxil is ok Date Reviewed: 09/05/2024 Reviewed by: Chantel Townsend MA - Fully Assessed Reason for Visit: Patient Update [1234] Prescriptions as of 10/04/2024 - predniSONE (DELTASONE) 10 mg tablet Take 4 tabs daily for 3 days, then 2 tabs daily for 3 days, then 1 tab daily for 3 days with food. - cetirizine (ZYRTEC) 10 mg tablet Take 1 tablet by mouth once daily. - levETIRAcetam (KEPPRA) 750 mg tablet Take 1 tablet by mouth two times a day. - omeprazole (PRILOSEC) 40 mg capsule Take 1 capsule by mouth once daily. - therapeutic multivitamin (THERA VITAMIN) tablet Take 1 tablet by mouth once daily. - benzonatate (TESSALON PERLES) 100 mg capsule Take 2 capsules by mouth three times a day as needed. - amoxicillin-clavulanate potassium (AUGMENTIN) 875-125 mg per tablet Take 1 tablet by mouth two times a day. - albuterol HFA (VENTOLIN HFA) 90 mcg/actuation inhaler Inhale 2 puffs as instructed every 4 hours as needed for wheezing/shortness of breath. - fluticasone-salmeterol (ADVAIR DISKUS) 250-50 mcg/dose inhaler Inhale 1 puff as instructed two times a day. Rinse and gargle mouth after use with water. - montelukast (SINGULAIR) 10 mg tablet Take 1 tablet by mouth daily at bedtime. - cyclobenzaprine (FLEXERIL) 10 mg tablet Take 1 tablet by mouth three times a day as needed for muscle spasm. - metoprolol succinate ER (TOPROL XL) 25 mg 24 hr tablet Take 1 tablet by mouth once daily. - Dextromethorphan-guaiFENe sin (ROBITUSSIN DM) 10-200 mg/5 mL liqd Take 5 mL by mouth every 6 hours as needed. - TYLENOL ARTHRITIS PAIN 650 mg CR tablet Take 1 tablet by mouth every 8 hours as needed. - benztropine (COGENTIN) 1 mg tablet TAKE 1 AND 1/2 (ONE AND ONE-HALF) TABLETS BY MOUTH IN THE MORNING and ONE TABLET AT BEDTIME - citalopram (CELEXA) 20 mg tablet 20 mg once daily. 1 tablet daily - zonisamide (ZONEGRAN) 100 mg capsule Take 100 mg by mouth once daily. 2 capsules by mouth twice daily - topiramate (TOPAMAX) 200 mg tablet Take 2 tablets by mouth twice daily. - lacosamide (VIMPAT) 200 mg tab Take 2 tablets by mouth twice daily. Meds Comments as of 01/02/2018: September 26, 2017 currently taking vimpat, topamax and zonegran December 09, 2017 does not have list, unable to verify list. Aurora Doan Ma 01-02-18 Taking Vimpat, Zonegran, and Albuterol. Linda Wall RN Problem List As Of Date 10/04/2024 Noted Resolved Other malaise and fatigue [R53.81, R53.83] 12/30/2004 11/06/2014 Myalgia and myositis, unspecified [[id number]] 05/08/2014 ESOPHAGEAL REFLUX [K21.9] Chronic factitious illness [...] (HCC) [E66.01] 08/03/2014 Asthma with acute exacerbation [J45.9 (more content not included)... [facility] (FAMPWS) ----- MARIA DEL ROSARIO LAWS ([id number]) 1980 F Date Time Provider Department 09/26/24 DANIEL TAN During your visit today, we recorded the following information about you: Queta Garcia RN 09/26/2024 1:49 PM Signed Patient's mother calls and states that patient continues with Left Knee pain and is asking if provider can send in a refill of prednisone. Advised Mother that provider had sent in prescription last week. Mother states that patient has 3.5 days worth of medication, however, patient continues to be in a lot of pain with her stretched tendons. Mother states that patient needs something to help with pain. Please review and advise, PIERO Tovar Mark D, MD 09/26/2024 2:28 PM Signed OK for 9 day prednisone taper MD Kristian Portillo Rilee, MA 09/26/2024 3:29 PM Signed Call to pt's Mother and notified her of message below from Provider. Mother asking if anything else could be prescribed to help her pain. This has been reviewed in the past that Tylenol is the safest thing to take due to the medications she's currently. Mother notes she's allergic to it, but at that time someone else picked up the phone and reported pt is not allergic to it, she just doesn't want to take it and wants something else. Mother stated she wouldn't take it and pt's brother reported something about bun in the oven, unsure what exactly was stated. Mother asking about Gabapentin, this was previously discussed that PCP did not want to prescribe due to her medications she's taking and advised Pain Mgmt consult, but this was never setup, due to pt's Insurance. She was advised to contact pt's insurance. Recommended that pt takes 9 day taper and use Tylenol for pain. Mother understood. Chantel Townsend MA Allergies As of Date: 09/26/2024 Noted Allergy Reaction DAYQUIL LIQUICAPS ([id number]* 3 14 - Other: See Comments Comments: Caused Seizure ARITHROMYCIN (AZITHROMYCIN) 10/27/2012 8 - GI Upset Comments: Z-Pack DOXYCYCLINE 07/22/2008 8 - GI Upset LATEX 08/21/2005 2 - Rash MUCINEX DM (DEXTROMETHORPHAN-GUAI* 5 - Intolerance Comments: gran mal seizure. [...] Intolerance Comments: Amoxil is ok Date Reviewed: 09/05/2024 Reviewed by: Chantel Townsend MA - Fully Assessed Reason for Visit: Patient Update [1234] Order(s):predniSONE (DELTASONE) 10 mg tabletTake 4 tabs daily for 3 days, then 2 tabs daily for 3 days, then 1 tab daily for 3 days with food.Disp: 21 tabletRfl: 0 Prescriptions as of 09/26/2024 - predniSONE (DELTASONE) 10 mg tablet Take 4 tabs daily for 3 days, then 2 tabs daily for 3 days, then 1 tab daily for 3 days with food. - cetirizine (ZYRTEC) 10 mg tablet Take 1 tablet by mouth once daily. - levETIRAcetam (KEPPRA) 750 mg tablet Take 1 tablet by mouth two times a day. - omeprazole (PRILOSEC) 40 mg capsule Take 1 capsule by mouth once daily. - therapeutic multivitamin (THERA VITAMIN) tablet Take 1 tablet by mouth once daily. - benzonatate (TESSALON PERLES) 100 mg capsule Take 2 capsules by mouth three times a day as needed. - amoxicillin-clavulanate potassium (AUGMENTIN) 875-125 mg per tablet Take 1 tablet by mouth two times a day. - albuterol HFA (VENTOLIN HFA) 90 mcg/actuation inhaler Inhale 2 puffs as instructed every 4 hours as needed for wheezing/shortness of breath. - fluticasone-salmeterol (ADVAIR DISKUS) 250-50 mcg/dose inhaler Inhale 1 puff as instructed two times a day. Rinse and gargle mouth after use with water. - montelukast (SINGULAIR) 10 mg tablet Take 1 tablet by mouth daily at bedtime. - cyclobenzaprine (FLEXERIL) 10 mg tablet Take 1 tablet by mouth three times a day as needed for muscle spasm. - metoprolol succinate ER (TOPROL XL) 25 mg 24 hr tablet Take 1 tablet by mouth once daily. - Dextromethorphan-guaiFENe sin (ROBITUSSIN DM) 10-200 mg/5 mL liqd Take 5 mL by mouth every 6 hours as needed. - TYLENOL ARTHRITIS PAIN 650 mg CR tablet Take 1 tablet by mouth every 8 hours as needed. - benztropine (COGENTIN) 1 mg tablet TAKE 1 AND 1/2 (ONE AND ONE-HALF) TABLETS BY MOUTH IN THE MORNING and ONE TABLET AT BEDTIME - citalopram (CELEXA) 20 mg tablet 20 mg once daily. 1 tablet daily - zonisamide (ZONEGRAN) 100 mg capsule Take 100 mg by mouth once daily. 2 capsules by mouth twice daily - topiramate (TOPAMAX) 200 mg tablet Take 2 tablets by (more content not included)... Normal [facility] Pollo 09-19-2024 DIXIEN Telephone (VICKI) ----- MARIA DEL ROSARIO LAWS ([id number]) 1980 F Date Time Provider Department 09/19/24 [facility] During your visit today, we recorded the following information about you: Queta Garcia RN 09/19/2024 12:25 PM Signed Patient's mother calls and states that patient's left knee continues to be swollen. Mother is asking if provider can send in another dose of prednisone? Please review and advise, PIERO Tovar Mark D, MD 09/19/2024 1:57 PM Signed OK to refill as ordered Daniel Tan MD Allergies As of Date: 09/19/2024 Noted Allergy Reaction DAYQUIL LIQUICAPS ([id number]* 3 14 - Other: See Comments Comments: Caused Seizure ARITHROMYCIN (AZITHROMYCIN) 10/27/2012 8 - GI Upset Comments: Z-Pack DOXYCYCLINE 07/22/2008 8 - GI Upset LATEX 08/21/2005 2 - Rash MUCINEX DM (DEXTROMETHORPHAN-GUAI* 5 - Intolerance Comments: gran mal seizure. [...] Intolerance Comments: Amoxil is ok Date Reviewed: 09/05/2024 Reviewed by: Chantel Townsend MA - Fully Assessed Reason for Visit: Patient Update [1234] Visit Diagnoses:Acute pain of left knee [M25.562] Acute left ankle pain [M25.572] Acute bronchitis, unspecified organism [J20.9] Order(s):predniSONE (DELTASONE) 20 mg tabletTake 2 tablets by mouth once daily.Disp: 10 tabletRfl: 0 Prescriptions as of 09/19/2024 - predniSONE (DELTASONE) 20 mg tablet Take 2 tablets by mouth once daily. - cetirizine (ZYRTEC) 10 mg tablet Take 1 tablet by mouth once daily. - levETIRAcetam (KEPPRA) 750 mg tablet Take 1 tablet by mouth two times a day. - omeprazole (PRILOSEC) 40 mg capsule Take 1 capsule by mouth once daily. - therapeutic multivitamin (THERA VITAMIN) tablet Take 1 tablet by mouth once daily. - benzonatate (TESSALON PERLES) 100 mg capsule Take 2 capsules by mouth three times a day as needed. - amoxicillin-clavulanate potassium (AUGMENTIN) 875-125 mg per tablet Take 1 tablet by mouth two times a day. - albuterol HFA (VENTOLIN HFA) 90 mcg/actuation inhaler Inhale 2 puffs as instructed every 4 hours as needed for wheezing/shortness of breath. - fluticasone-salmeterol (ADVAIR DISKUS) 250-50 mcg/dose inhaler Inhale 1 puff as instructed two times a day. Rinse and gargle mouth after use with water. - montelukast (SINGULAIR) 10 mg tablet Take 1 tablet by mouth daily at bedtime. - cyclobenzaprine (FLEXERIL) 10 mg tablet Take 1 tablet by mouth three times a day as needed for muscle spasm. - metoprolol succinate ER (TOPROL XL) 25 mg 24 hr tablet Take 1 tablet by mouth once daily. - Dextromethorphan-guaiFENe sin (ROBITUSSIN DM) 10-200 mg/5 mL liqd Take 5 mL by mouth every 6 hours as needed. - TYLENOL ARTHRITIS PAIN 650 mg CR tablet Take 1 tablet by mouth every 8 hours as needed. - benztropine (COGENTIN) 1 mg tablet TAKE 1 AND 1/2 (ONE AND ONE-HALF) TABLETS BY MOUTH IN THE MORNING and ONE TABLET AT BEDTIME - citalopram (CELEXA) 20 mg tablet 20 mg once daily. 1 tablet daily - zonisamide (ZONEGRAN) 100 mg capsule Take 100 mg by mouth once daily. 2 capsules by mouth twice daily - topiramate (TOPAMAX) 200 mg tablet Take 2 tablets by mouth twice daily. - lacosamide (VIMPAT) 200 mg tab Take 2 tablets by mouth twice daily. Meds Comments as of 01/02/2018: September 26, 2017 currently taking vimpat, topamax and zonegran December 09, 2017 does not have list, unable to verify list. Aurora Doan Ma 01-02-18 Taking Vimpat, Zonegran, and Albuterol. Linda Wall, PIERO Problem List As Of Date 09/19/2024 Noted Resolved Other malaise and fatigue [R53.81, R53.83] 12/30/2004 11/06/2014 Myalgia and myositis, unspecified [[id number]] 05/08/2014 ESOPHAGEAL REFLUX [K21.9] Chronic factitious illness [...] (HCC) [F22] 11/10/2016 Sprain of other specified (more content not included)... Normal [facility] MARIA DEL ROSARIO LAWS ([id number]) 1980 F Date Time Provider Department 09/14/24 DANIEL TAN 4CQ During your visit today, we recorded the following information about you: Tala Gunn 09/14/2024 2:38 PM Signed Was calling family for another issue and mother answered the line stated the patient I was wanting to speak with was not there and then proceeds to ask me why Dr Tc cedeno did not order an xray for this patient at last visit. Patient I guess reported to [facility] Er a few days ago discovered she does have pulled ligaments and tendons per mother and how long will this take to heal, I offered to arrange Er follow up and mother declined. Daniel Tan MD 09/16/2024 9:39 AM Signed Noted Daniel Tan MD Allergies As of Date: 09/14/2024 Noted Allergy Reaction DAYQUIL LIQUICAPS ([id number]* 3 14 - Other: See Comments Comments: Caused Seizure ARITHROMYCIN (AZITHROMYCIN) 10/27/2012 8 - GI Upset Comments: Z-Pack DOXYCYCLINE 07/22/2008 8 - GI Upset LATEX 08/21/2005 2 - Rash MUCINEX DM (DEXTROMETHORPHAN-GUAI* 5 - Intolerance Comments: gran mal seizure. [...] Intolerance Comments: Amoxil is ok Date Reviewed: 09/05/2024 Reviewed by: Chantel Townsend MA - Fully Assessed Reason for Visit: Patient Update [1234] Prescriptions as of 09/16/2024 - cetirizine (ZYRTEC) 10 mg tablet Take 1 tablet by mouth once daily. - levETIRAcetam (KEPPRA) 750 mg tablet Take 1 tablet by mouth two times a day. - omeprazole (PRILOSEC) 40 mg capsule Take 1 capsule by mouth once daily. - therapeutic multivitamin (THERA VITAMIN) tablet Take 1 tablet by mouth once daily. - benzonatate (TESSALON PERLES) 100 mg capsule Take 2 capsules by mouth three times a day as needed. - amoxicillin-clavulanate potassium (AUGMENTIN) 875-125 mg per tablet Take 1 tablet by mouth two times a day. - predniSONE (DELTASONE) 20 mg tablet Take 2 tablets by mouth once daily. - albuterol HFA (VENTOLIN HFA) 90 mcg/actuation inhaler Inhale 2 puffs as instructed every 4 hours as needed for wheezing/shortness of breath. - fluticasone-salmeterol (ADVAIR DISKUS) 250-50 mcg/dose inhaler Inhale 1 puff as instructed two times a day. Rinse and gargle mouth after use with water. - montelukast (SINGULAIR) 10 mg tablet Take 1 tablet by mouth daily at bedtime. - cyclobenzaprine (FLEXERIL) 10 mg tablet Take 1 tablet by mouth three times a day as needed for muscle spasm. - metoprolol succinate ER (TOPROL XL) 25 mg 24 hr tablet Take 1 tablet by mouth once daily. - Dextromethorphan-guaiFENe sin (ROBITUSSIN DM) 10-200 mg/5 mL liqd Take 5 mL by mouth every 6 hours as needed. - TYLENOL ARTHRITIS PAIN 650 mg CR tablet Take 1 tablet by mouth every 8 hours as needed. - benztropine (COGENTIN) 1 mg tablet TAKE 1 AND 1/2 (ONE AND ONE-HALF) TABLETS BY MOUTH IN THE MORNING and ONE TABLET AT BEDTIME - citalopram (CELEXA) 20 mg tablet 20 mg once daily. 1 tablet daily - zonisamide (ZONEGRAN) 100 mg capsule Take 100 mg by mouth once daily. 2 capsules by mouth twice daily - topiramate (TOPAMAX) 200 mg tablet Take 2 tablets by mouth twice daily. - lacosamide (VIMPAT) 200 mg tab Take 2 tablets by mouth twice daily. Meds Comments as of 01/02/2018: September 26, 2017 currently taking vimpat, topamax and zonegran December 09, 2017 does not have list, unable to verify list. Aurora Doan Ma 01-02-18 Taking Vimpat, Zonegran, and Albuterol. Linda Wall RN Problem List As Of Date 09/14/2024 Noted Resolved Other malaise and fatigue [R53.81, R53.83] 12/30/2004 11/06/2014 Myalgia and myositis, unspecified [[id number]] 05/08/2014 ESOPHAGEAL REFLUX [K21.9] Chronic factitious illness [...] of other specified parts of right knee, (more content not included)... Normal [facility] Emergency Department Summary on 09-10-2024 Emergency Department Summary [facility] Medical Records Department [address] [place] [address] Emergency Department Summary 09/10/24 MR#: [id number] Acct: [id number] Name: MARIA DEL ROSARIO LAWS Rep #: [id number] : 1980 44 From: Harry Arreola DO PCP: Dr. Daniel Tan MD Status:DEP ER Location: ED HPI History of Present Illness HPI Narrative: Patient presents with left lower extremity pain that has been getting worse over the past month. Patient states she has an infection in her knee. Patient admits to subjective fevers. Patient states she does not have a thermometer at home. Patient states that her pain is sharp and stabbing. Patient states nothing makes it better and nothing makes it worse. Patient denies any paresthesias or weakness. Patient denies any trauma or injury. Chief Complaint: Lower Extremity Injury Informant: patient Onset/Context/Timing Onset: Month(s) (1) Context: Gradual Onset Timing: Continuous Quality of Pain: Sharp and Stabbing Location: Left knee Worsened by: Nothing Relieved by: Nothing Associated Symptoms Associated Symptoms: Negative for Parasthesia or Weakness [facility] Medical History (Updated 09/10/24 @ 15:[address] Harry Arreola, DO) Edema Abnormal stress test Acute bilateral otitis media Acute bronchitis Seizure PND (paroxysmal nocturnal dyspnea) Dyspnea on exertion Schizophrenia Chest pain PCOS (polycystic ovarian syndrome) Myalgia and myositis GERD (gastroesophageal reflux disease) Conversion disorder Chronic factitious illness with physical symptoms Adjustment disorder with depressed mood Generalized seizure disorder History of mental retardation History of asthma Home Medications ???Medication ???Instructions ???Recorded ???Last Taken ???Type cetirizine 10 mg tablet 10 mg PO DAILY 02/11/19 Unknown Hi story iloperidone 4 mg tablet 4 mg PO QHS BIPOLAR 02/11/1906/02 History multivitamin 1 tab PO DAILY 02/11/19 06/03/19 H istory topiramate 200 mg tablet (Topamax) 400 mg PO BID SEIZURES 02/11/19 06/03/19 History citalopram 20 mg tablet 20 mg PO DAILY 02/23/19 06/03/19 H istory albuterol sulfate 90 mcg/actuation 2 puff inhalation Q4H PRN PRN 05/29/19 Rx aerosol inhaler Wheezing ##1 benztropine 1 mg tablet 1 mg PO QHS 01/30/22 Unknown Histo ry montelukast 10 mg tablet 10 mg PO DAILY 01/30/22 Unknown Hi story zonisamide 100 mg capsule 200 mg PO BID 01/30/22 Unknown His tory benzonatate 100 mg capsule 200 mg (2 x 100 mg) PO TID PRN Unknown Rx cough #30 caps cyclobenzaprine 10 mg tablet 10 mg PO TID 11/12/23 Unknown Hist ory fluticasone 250 mcg-salmeterol 50 1 ea inhalation BID 11/12/23 Unkn own History mcg/dose blistr powdr for inhalation levetiracetam 750 mg tablet 1,500 mg PO BID 11/12/23 Unknown H istory (Keppra) metoprolol succinate 25 mg 25 mg PO QDAY 11/12/23 Unknown His tory tablet,extended release 24 hr lacosamide 150 mg tablet (Vimpat) 300 mg PO BID 06/08/24 Unknown Hi story benztropine 1 mg tablet 1.5 mg PO DAILY 06/09/24 Unknown H istory Allergy/AdvReac Type Severity Reaction Status Date / Time chlorpheniramine (From Vicks Allergy Intermediate seizure Verified 09/10/24 13:09 DayQuil) dextromethorphan (From Vicks Allergy Intermediate seizure Verified 09/10/24 13:09 DayQuil) phenylpropanolamine (From Allergy Intermediate seizure Verified 09/10/24 13:09 [facility] DayQuil) pseudoephedrine (From Vicks Allergy Intermediate seizure Verified 09/10/24 13:09 DayQuil) azithromycin (From Zithromax Allergy Other Verified 09/10/24 13:09 Z-Johnny) cephalexin Allergy Unknown Verified 09/10/24 13:09 doxycycline Allergy Nausea Verified 09/10/24 13:09 guaifenesin (From Mucinex) Allergy Other Verified 09/10/24 13:09 latex Allergy Rash Verified 09/10/24 13:09 oseltamivir (From Tamiflu) Allergy Unknown Verified 06/08/24 19:48 risperidone (From Risperdal) Allergy Other Verified 09/10/24 13:09 strawberry Allergy Hives Verified 09/10/24 13:09 valdecoxib (From Bextra) Allergy Rash Verified 09/10/24 13:09 Family History Mother Asthma Father Heart disease Seizures Brother Seizures Sister Myocardial infarction Heart disease Seizures Grandmother Diabetes CVA (cerebral vascular accident) Surgical History (Updated 09/10/24 @ 13:[address] Harry Arreola DO) Hx of removal of cyst Social History Smoking Status: Never smoker alcohol intake: never substance use type: does not use caffeine: Yes Type: carbonated beverages ROS ROS ED Constitutional Constitutional ED: Reports fever(s) and subjective; Denies chills Eyes Eyes: Denies blurry vision or change in vision ENT ENT ED: Denies rhi (more content not included)... Normal [facility] Knee 4 or More Viewson 09-10 Knee 4 or More Views [facility] [address] [place] [address] Knee 4 or More Views MR#: [id number] Acct: [id number] Name: MARIA DEL ROSARIO LAWS Rep #: [id number] : 1980 F 44 From: Emiliana Rosales nd, MD PCP: Dr. Daniel Tan MD Status: REG ER Study: Knee 4 or More Views Date of Exam: 09/10/24 Exam# [id number] Ordering Dr: Harry Arreola DO PROCEDURE: KNEE 4 OR MORE VIEWS 09/10/2024 REASON FOR EXAM: INJURY/PAIN TECHNIQUE: 4 view(s) of the left knee COMPARISON: None. FINDINGS: Bones: No acute fracture or findings compatible with prior fracture. No suspicious bone lesion. Joints: Normal alignment. Mild degenerative changes. Effusion: No effusion. Soft tissues: Soft tissues are unremarkable. No subcutaneous gas. Other: No metallic foreign body. RAD/Knee 4 or More Views IMPRESSION: NO EFFUSION, ACUTE OR CHRONIC FRACTURE, OR DISLOCATION. Reading Location: [id number] CC: Dr. Harry Arreola DO; Dr. Daniel Tan MD Archives Director: Signed [facility] 09-06-2024 [facility] ----- MARIA DEL ROSARIO LAWS ([id number]) 1980 F Date Time Provider Department 09/06/24 DANIEL TAN ADMWST During your visit today, we recorded the following information about you: Wilmer Billings 09/06/2024 1:25 PM Signed Patient's mother called in asking for a medication refill for generic Zyrtec. I could not find that in the list of medications. Last seen: 09/05/2024 Future Appt: 10/04/2024 Please advise. Thank you. Daniel Tan MD 09/06/2024 2:31 PM Signed OK to refill as ordered MD Kristian Portillo Rilee, MA 09/06/2024 2:34 PM Signed The following approved medication requests have been transmitted electronically. Requested Prescriptions Signed Prescriptions Disp Refills cetirizine (ZYRTEC) 10 mg tablet 90 tablet 3 Sig: Take 1 tablet by mouth once daily. Authorizing Provider: DANIEL TAN MA Allergies As of Date: 09/06/2024 Noted Allergy Reaction DAYQUIL LIQUICAPS ([id number]* 3 14 - Other: See Comments Comments: Caused Seizure ARITHROMYCIN (AZITHROMYCIN) 10/27/2012 8 - GI Upset Comments: Z-Pack DOXYCYCLINE 07/22/2008 8 - GI Upset LATEX 08/21/2005 2 - Rash MUCINEX DM (DEXTROMETHORPHAN-GUAI* 5 - Intolerance Comments: gran mal seizure. [...] Intolerance Comments: Amoxil is ok Date Reviewed: 09/05/2024 Reviewed by: Chantel Townsend MA - Fully Assessed Reason for Visit: Patient Question [5467] Cmt: Medication Refill Visit Diagnosis:Rhinorrhea [J34.89] Order(s):cetirizine (ZYRTEC) 10 mg tabletTake 1 tablet by mouth once daily.Disp: 90 tabletRfl: 3 Prescriptions as of 09/06/2024 - cetirizine (ZYRTEC) 10 mg tablet Take 1 tablet by mouth once daily. - levETIRAcetam (KEPPRA) 750 mg tablet Take 1 tablet by mouth two times a day. - omeprazole (PRILOSEC) 40 mg capsule Take 1 capsule by mouth once daily. - therapeutic multivitamin (THERA VITAMIN) tablet Take 1 tablet by mouth once daily. - benzonatate (TESSALON PERLES) 100 mg capsule Take 2 capsules by mouth three times a day as needed. - amoxicillin-clavulanate potassium (AUGMENTIN) 875-125 mg per tablet Take 1 tablet by mouth two times a day. - predniSONE (DELTASONE) 20 mg tablet Take 2 tablets by mouth once daily. - albuterol HFA (VENTOLIN HFA) 90 mcg/actuation inhaler Inhale 2 puffs as instructed every 4 hours as needed for wheezing/shortness of breath. - fluticasone-salmeterol (ADVAIR DISKUS) 250-50 mcg/dose inhaler Inhale 1 puff as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 XL) 25 mg 24 hr tablet Take 1 tablet by mouth once daily. - benzonatate (TESSALON PERLES) 100 mg capsule Take 2 capsules by mouth three times a day as needed. - Dextromethorphan-guaiFENe sin (ROBITUSSIN DM) 10-200 mg/5 mL liqd Take 5 mL by mouth every 6 hours as needed. - fluticasone-salmeterol (ADVAIR DISKUS) 250-50 mcg/dose inhaler Inhale 1 Puff as instructed two times a day. Rinse and gargle mouth after use with water. - TYLENOL ARTHRITIS PAIN 650 mg CR tablet Take 1 tablet by mouth every 8 hours as needed. - omeprazole (PRILOSEC) 40 mg capsule Take 40 mg by mouth once daily. - albuterol HFA (VENTOLIN HFA) 90 mcg/actuation inhaler Inhale 2 Puffs as instructed every 4 hours as needed for wheezing/shortness of breath. - benztropine (COGENTIN) 1 mg tablet TAKE 1 AND 1/2 (ONE AND ONE-HALF) TABLETS BY MOUTH IN THE MORNING and ONE TABLET AT BEDTIME - montelukast (SINGULAIR) 10 mg tablet Take 1 tablet by mouth daily at bedtime. - citalopram (CELEXA) 20 mg tablet 20 mg once daily. 1 tablet daily - zonisamide (ZONEGRAN) 100 mg capsule Take 100 mg by mouth once daily. 2 capsules by mouth twice daily - levETIRAcetam (KEPPRA) 750 mg tablet Take 1,000 mg by mouth two times a day. - Norethindrone, Contraceptive, (ORTHO MICRONOR) 0.35 mg tablet Take 1 tablet by mouth once daily. - iloperidone (FANAPT) 4 mg tab [...] Ma [birth year] Taking Vimpat, Zonegran, and Albuterol. 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 [facility] VETOMARIA DEL ROSARIO ([id number]) 1980 F Date Time Provider Department 08/04[facility]24 [facility] During your visit today, we recorded the following information about you: Tala Garcia, PIERO 08/04/2024 10:00 AM Signed Patient's mother Kennedi calling in and states patient had a urine test and labs, ordered by behavioral health specialist and completed through [facility] and she has not heard back about the results. Reports she is going to call [facility] today and request those test results be faxed to Dr. Tan's office for him to review and advise. Please call pt's mother with advise, once Dr. Tan is able to review them. Mother states she cannot make an appt for pt anytime soon due to transportation. During call, pt's mother states that patient has has urinary sx's for over 1 month and has not been further evaluated or advised. Sx's include strong odor to urine, darker color, frequency and back pain. Mother does not think pt has had a fever or chills.This nurse advised appt with provider today, or as soon as possible. Mother states pt unable to come in due to transportation issues at this time. Of note, patient has had ER visit on 06/08/24 due to seizures. Informed mother that patient is overdue for a wellness appt. Wellness appt made with PCP for 10/04/24, soonest available. Mother requesting pt to be seen by Dr. Tan only. PIERO Brown Rilee, MA 08/04/2024 12:47 PM Signed Office received labs from [facility]. These have been scanned into pt's chart. CORAZON Quan Mark D, MD 08/04/2024 3:33 PM Signed Her lab results from [facility] all look OK to me. Urine did not show definite signs of infection, if she continues to have symptoms she would need to be seen. MD Kristian Portillo Rilee, MA 08/04/2024 4:11 PM Signed Call to Mother and notified her of message below from Provider. Mother wants to know then why can she smell her urine all through the house? Asked Mother if she drinks enough water, Mom states yes. Mother also wanting to know why is she losing her hair and if labs showed anything. Notified her that PCP said nothing was seen on labs. Mother notes that this seemed to be more noticeable after starting psych meds/injectables. Advised Mom to speak with Psych about this. She verbalized understanding. Advised to make appt to discuss further other issues. Chantel Townsend MA Allergies As of Date: 08/04/2024 Noted Allergy Reaction DAYQUIL LIQUICAPS ([id number]* 3 14 - Other: See Comments Comments: Caused Seizure ARITHROMYCIN (AZITHROMYCIN) 10/27/2012 8 - GI Upset Comments: Z-Pack DOXYCYCLINE 07/22/2008 8 - GI Upset LATEX 08/21/2005 2 - Rash MUCINEX DM (DEXTROMETHORPHAN-GUAI* 5 - Intolerance Comments: gran mal seizure. [...] Intolerance Comments: Amoxil is ok Date Reviewed: 04/04/2024 Reviewed by: Wilmer Murillo MD - Fully Assessed Reason for Visit: [facility] Lab Results [Other] Prescriptions as of 08/04/2024 - cyclobenzaprine (FLEXERIL) 10 mg tablet Take 1 tablet by mouth three times a day as needed for muscle spasm. - metoprolol succinate ER (TOPROL XL) 25 mg 24 hr tablet Take 1 tablet by mouth once daily. - benzonatate (TESSALON PERLES) 100 mg capsule Take 2 capsules by mouth three times a day as needed. - Dextromethorphan-guaiFENe sin (ROBITUSSIN DM) 10-200 mg/5 mL liqd Take 5 mL by mouth every 6 hours as needed. - fluticasone-salmeterol (ADVAIR DISKUS) 250-50 mcg/dose inhaler Inhale 1 Puff as instructed two times a day. Rinse and gargle mouth after use with water. - TYLENOL ARTHRITIS PAIN 650 mg CR tablet Take 1 tablet by mouth every 8 hours as needed. - omeprazole (PRILOSEC) 40 mg capsule Take 40 mg by mouth once daily. - albuterol HFA (VENTOLIN HFA) 90 mcg/actuation inhaler Inhale 2 Puffs as instructed every 4 hours as needed for wheezing/shortness of breath. - benztropine (COGENTIN) 1 mg tablet TAKE 1 AND 1/2 (ONE AND ONE-HALF) TABLETS BY MOUTH IN THE MORNING and ONE TABLET AT BEDTIME - montelukast (SINGULAIR) 10 mg tablet Take 1 tablet by mouth daily at bedtime. - citalopram (CELEXA) 20 mg tablet 20 mg once daily. 1 tablet daily - zonisamide (ZONEGRAN) 100 mg capsule Take 100 mg by mouth once daily. 2 capsules by mouth twice daily - levETIRAcetam (KEPPRA) 750 mg tablet Take 1,000 mg by mouth two times a day. - Norethin (more content not included)... Normal [facility] Bilirubin Test strip Ql (U)o n 07-25-2024 Bilirubin Ql (U) Negative Negative [facility] CBC W/Diff, Automatedon Absolute Neut Normal 2.0-7.7 [facility] Comment on above: Result Comment: JUST URINE Performed By: #### L 500.2500, L100.0500 #### [facility] Laboratory [address] [place], [address] HCT Normal 37-47 [facility] Comment on above: Result Comment: JUST URINE Performed By: #### L 500.2500, L100.0500 #### [facility] [address] [place], [address] HGB Normal 12.0-15.0 [facility] Comment on above: Result Comment: JUST URINE Performed By: #### L 500.2500, L100.0500 #### [facility] [address] [place], [address] MCH Normal 27.0-32.0 [facility] Comment on above: Result Comment: JUST URINE Performed By: #### L 500.2500, L100.0500 #### [facility] [address] [place], [address] MCHC Normal 32-36 [facility] Comment on above: Result Comment: JUST URINE Performed By: #### L 500.2500, L100.0500 #### [facility] [address] [place], [address] MCV Normal 81-99 [facility] Comment on above: Result Comment: JUST URINE Performed By: #### L 500.2500, L100.0500 #### [facility] [address] [place], [address] NEUT% Normal 47-70 [facility] Comment on above: Result Comment: JUST URINE Performed By: #### L 500.2500, L100.0500 #### [facility] [address] [place], [address] PLT Normal 150-450 [facility] Comment on above: Result Comment: JUST URINE Performed By: #### L 500.2500, L100.0500 #### [facility] [address] [place], [address] RBC Normal 4.2-5.4 [facility] Comment on above: Result Comment: JUST URINE Performed By: #### L 500.2500, L100.0500 #### [facility] [address] [place], [address] RDW CV Normal 11.6-14.6 [facility] Comment on above: Result Comment: JUST URINE Performed By: #### L 500.2500, L100.0500 #### [facility] [address] [place], [address] RDW SD Normal 35.1-43.9 [facility] Comment on above: Result Comment: JUST URINE Performed By: #### L 500.2500, L100.0500 #### [facility] [address] [place], [address] WBC Normal 4.4-11.0 [facility] Comment on above: Result Comment: JUST URINE Performed By: #### L 500.2500, L100.0500 #### [facility] [address] [place], [address] CNCOon 07-25-2024 CNCO Letter Text Normal [facility] ilon 07-25-2024 ALB Normal 3.5-5.0 [facility] Comment on above: Result Comment: JUST URINE Performed By: #### L 500.2500, L100.0500 #### [facility] [address] [place], [address] ALK PHOS Normal 35-104 [facility] Comment on above: Result Comment: JUST URINE Performed By: #### L 500.2500, L100.0500 #### [facility] [address] [place], [address] ALT Normal <=34 [facility] Comment on above: Result Comment: JUST URINE Performed By: #### L 500.2500, L100.0500 #### [facility] [address] [place], [address] AST Normal <=31 [facility] Comment on above: Result Comment: JUST URINE Performed By: #### L 500.2500, L100.0500 #### [facility] [address] [place], [address] BUN Normal 4-19 [facility] Comment on above: Result Comment: JUST URINE Performed By: #### L 500.2500, L100.0500 #### [facility] [address] [place], [address] BUN/CRE Normal 10-20 [facility] Comment on above: Result Comment: JUST URINE Performed By: #### L 500.2500, L100.0500 #### [facility] [address] [place], [address] Calcium Normal 7.6-11.0 [facility] Comment on above: Result Comment: JUST URINE Performed By: #### L 500.2500, L100.0500 #### [facility] [address] [place], [address] CL Normal 98-108 [facility] Comment on above: Result Comment: JUST URINE Performed By: #### L 500.2500, L100.0500 #### [facility] [address] [place], [address] CO2 Normal 21.0-32.0 [facility] Comment on above: Result Comment: JUST URINE Performed By: #### L 500.2500, L100.0500 #### [facility] [address] [place], [address] CREAT,SERUM Normal 0.70-1.20 [facility] Comment on above: Result Comment: JUST URINE Performed By: #### L 500.2500, L100.0500 #### [facility] [address] [place], [address] eGFR Normal >60 [facility] Comment on above: Result Comment: JUST URINE Performed By: #### L 500.2500, L100.0500 #### [facility] [address] [place], [address] GAP Normal 5-15 [facility] Comment on above: Result Comment: JUST URINE Performed By: #### L 500.2500, L100.0500 #### [facility] [address] [place], [address] GLU Normal 70-99 [facility] Comment on above: Result Comment: JUST URINE Performed By: #### L 500.2500, L100.0500 #### [facility] [address] [place], [address] Potassium Normal 3.3-5.1 [facility] Comment on above: Result Comment: JUST URINE Performed By: #### L 500.2500, L100.0500 #### [facility] [address] [place], [address] T BILI Normal 0.00-1.30 [facility] Comment on above: Result Comment: JUST URINE Performed By: #### L 500.2500, L100.0500 #### [facility] [address] [place], [address] T PROT Normal 5.9-8.4 [facility] Comment on above: Result Comment: JUST URINE Performed By: #### L 500.2500, L100.0500 #### [facility] [address] [place], [address] Comprehensive Metabolic Profil Normal 133-145 [facility] Comment on above: Result Comment: JUST URINE Performed By: #### L 500.2500, L100.0500 #### [facility] [address] [place], [address] Glucose Ql (U)on 07-25-2024 Urine Glucose (UA) Normal mg/dl Normal [facility] Iron+Iron Binding Capacityon 07-25-2024 IRON Normal 50-170 [facility] Comment on above: Result Comment: JUST URINE Performed By: #### L 500.2500, L100.0500 #### [facility] [address] [place], [address] IRON SATURATION Normal 13-59 [facility] Comment on above: Result Comment: JUST URINE Performed By: #### L 500.2500, L100.0500 #### [facility] [address] [place], [address] TIBC Normal 250-450 [facility] Comment on above: Result Comment: JUST URINE Performed By: #### L 500.2500, L100.0500 #### [facility] [address] [place], [address] UIBC Normal 228-428 [facility] Comment on above: Result Comment: JUST URINE Performed By: #### L 500.2500, L100.0500 #### [facility] [address] [place], [address] Ketones Test strip Ql (U)on 07-25-2024 Ketones Ql (U) Negative Negative [facility] Lipid Profileon 07-25-2024 TRIG Normal [facility] Comment on above: Result Comment: JUST URINE The drugs N-Acetylcysteine and Metamizole may falsely depress this assay. Performed By: #### L 500.2500, L100.0500 #### [facility] [address] [place], [address] CHOL Normal <=200 [facility] Comment on above: Result Comment: JUST URINE Performed By: #### L 500.2500, L100.0500 #### [facility] [address] [place], [address] CHOL:HDL Normal [facility] Comment on above: Result Comment: JUST URINE Performed By: #### L 500.2500, L100.0500 #### [facility] [address] [place], [address] CLDL Normal [facility] Comment on above: Result Comment: JUST URINE Performed By: #### L 500.2500, L100.0500 #### [facility] [address] [place], [address] HDL Normal [facility] Comment on above: Result Comment: JUST URINE Performed By: #### L 500.2500, L100.0500 #### [facility] [address] [place], [address] VLDL Normal 5-40 [facility] Comment on above: Result Comment: JUST URINE Performed By: #### L 500.2500, L100.0500 #### [facility] [address] [place], [address] Nitrite Test strip Ql (U)on 07-25-2024 Nitrite Ql (U) Negative Negative [facility] Protein Test strip Ql (U)on 07-25-2024 Protein Ql (U) Negative Negative [facility] Urinalysis, Routine (Dipstic k)on 07-25-2024 BILIRUBIN URINE Negative Normal Negative [facility] Comment on above: Order Comment: Urine , Random Performed By: #### L 500.2500, L100.0500 #### [facility] [address] [place], [address] Clarity (U) Clear Normal Clear [facility] Comment on above: Order Comment: Urine , Random Performed By: #### L 500.2500, L100.0500 #### [facility] [address] [place], [address] Color (U) Yellow Normal Yellow [facility] Comment on above: Order Comment: Urine , Random Performed By: #### L 500.2500, L100.0500 #### [facility] [address] [place], [address] GLUCOSE, UR Normal Normal Normal [facility] Comment on above: Order Comment: Urine , Random Performed By: #### L 500.2500, L100.0500 #### [facility] [address] [place], [address] KETONE UR Negative Normal Negative [facility] Comment on above: Order Comment: Urine , Random Performed By: #### L 500.2500, L100.0500 #### [facility] [address] [place], [address] LEUK ESTERASE 25 /ul Abnormal Negative [facility] [place] Comment on above: Order Comment: Urine , Random Performed By: #### L 500.2500, L100.0500 #### [facility] [place] Laboratory [address] [place], [address] Nitrite Ql (U) Negative Normal Negative [facility] [place] Comment on above: Order Comment: Urine , Random Performed By: #### L 500.2500, L100.0500 #### [facility] [place] Laboratory [address] [place], [address] OCCULT BLOOD-UR Negative Normal Negative [facility] [place] Comment on above: Order Comment: Urine , Random Performed By: #### L 500.2500, L100.0500 #### [facility] [place] Laboratory [address] [place], [address] pH UR 7.0 Normal 5.0 - 8.0 [facility] [place] Comment on above: Order Comment: Urine , Random Performed By: #### L 500.2500, L100.0500 #### [facility] [place] Laboratory [address] [place], [address] PROT DIPSTX Negative Normal Negative [facility] [place] Comment on above: Order Comment: Urine , Random Performed By: #### L 500.2500, L100.0500 #### [facility] [place] Laboratory [address] [place], [address] SP.GR. DIPSTX 1.010 Normal 1.002-1.03 0 [facility] [place] Comment on above: Order Comment: Urine , Random Performed By: #### L 500.2500, L100.0500 #### [facility] [place] [facility] [address] [place], [address] UROBILI Normal Normal Normal [facility] [place] Comment on above: Order Comment: Urine , Random Performed By: #### L 500.2500, L100.0500 #### [facility] [place] Laboratory [address] [place], [address] Urine blood detectionon -0 Urine Occult Blood Negative Negative [facility] Urine clarityon 07-25-2024 Clarity (U) Clear Clear [facility] Urine color determinationon 07-25-2024 Color (U) Yellow Yellow [facility] [place] Urine leukocyte esterase det ection by dipstickon 07-25-2024 Leukocyte esterase Test strip Ql (U) 25 /ul High Negative [facility] [place] Urine pHon 07-25-2024 pH (U) 7.0 [pH] 5.0 - 8.0 [facility] [place] Urine specific gravity measu rementon 07-25-2024 Specific gravity (U) [Rel density] 1.010 1.002-1.03 0 [facility] Urobilinogen Ql (U)on 2024 Urine Urobilinogen Normal mg/dl Normal [facility] PROLACTIN 4465on 07-24-2024 PROLACTIN 111.0 ng/mL High 4.8-33.4 [facility] [place] Comment on above: Result Comment: Perf ormed at: [facility] [address] [id number] Telephone Ad Taker: Spencer Delgado PhD, Phone: [phone] Performed By: #### L 7400.3000, L506.1000, L503.0105, L500.4050, L501.9520, L801.1541, L801.1543, L3380.1400, L100.0100, L3310.0000, L506.0250 #### [facility] [place] Laboratory [address] [place], [place], [id number] Absolute neutrophil counton 07-23-2024 Neutrophils (Bld) [#/Vol] 7.8 10*3/uL High 2.0-7.7 [facility] Anion gap in Serum or Plasma on 07-23-2024 Anion gap [Moles/Vol] 12 mmol/L 5-15 [facility] BUN/creatinine ratioon 07-23 Urea nitrogen/Creatinine [Mass ratio] 8.2 mg/mg Low 10-20 [facility] [place] Basophil percentageon 2024 Basophils/100 WBC (Bld) 0.1 % 0-1 [facility] Bilirubin, totalon Bilirubin [Mass/Vol] 0.25 mg/dL 0.00-1.30 [facility] CBC W/Diff, Automatedon Absolute Lymph 1.82 X10 3/uL Normal 0.83-4.51 [facility] [place] Comment on above: Performed By: #### L 500.2500, L100.0500 #### [facility] [place] [facility] [address] [place], [place], [id number] Absolute Neut 7.8 X10 3/uL High 2.0-7.7 [facility] [place] Comment on above: Performed By: #### L 500.2500, L100.0500 #### [facility] Laboratory [address] [place], [address] Basophils/100 WBC (Bld) 0.1 % Normal 0-1 [facility] Comment on above: Performed By: #### L 500.2500, L100.0500 #### [facility] Laboratory [address] [place], [address] Eosinophils/100 WBC (Bld) 0.0 % Normal 0-5 [facility] [place] Comment on above: Performed By: #### L 500.2500, L100.0500 #### [facility] Laboratory [address] [place], [address] Erythrocyte distribution width (RBC) [Ratio] 13.5 % Normal 11.6-14.6 [facility] [place] Comment on above: Performed By: #### L 500.2500, L100.0500 #### [facility] Laboratory [address] [place], [address] Hematocrit (Bld) [Volume fraction] 45.5 % Normal 37-47 [facility] [place] Comment on above: Performed By: #### L 500.2500, L100.0500 #### [facility] [place] Laboratory [address] [place], [address] Hemoglobin (Bld) [Mass/Vol] 14.4 g/dL Normal 12.0-15.0 [facility] [place] Comment on above: Performed By: #### L 500.2500, L100.0500 #### [facility] [facility] [address] [place], [address] IG% 0.400 Normal 0.0-0.9 [facility] Comment on above: Result Comment: IG% - Immature Granulocytes (promyelocytes, myelocytes and metamyelocytes) > 1% indicates that a LEFT SHIFT is Present. Performed By: #### L 500.2500, L100.0500 #### [facility] [address] [place], [address] Lymphocytes/100 WBC (Bld) 17.6 % Low 19-41 [facility] [place] Comment on above: Performed By: #### L 500.2500, L100.0500 #### [facility] [address] [place], [address] MCH (RBC) [Entitic mass] 28.7 pg Normal 27.0-32.0 [facility] [place] Comment on above: Performed By: #### L 500.2500, L100.0500 #### [facility] [place] Laboratory [address] [place], [address] MCHC (RBC) [Mass/Vol] 31.6 g/dL Low 32-36 [facility] Comment on above: Performed By: #### L 500.2500, L100.0500 #### [facility] Laboratory [address] [place], [address] MCV (RBC) [Entitic vol] 90.6 fL Normal 81-99 [facility] Comment on above: Performed By: #### L 500.2500, L100.0500 #### [facility] Laboratory [address] [place], [address] Monocytes/100 WBC (Bld) 6.4 % Normal 0-10 [facility] Comment on above: Performed By: #### L 500.2500, L100.0500 #### [facility] Laboratory [address] [place], [address] Neutrophils/100 WBC (Bld) 75.5 % High 47-70 [facility] Comment on above: Performed By: #### L 500.2500, L100.0500 #### [facility] Laboratory [address] [place], [address] Nucleated RBC (Bld) [#/Vol] 0 10*3/uL Normal 0-5 [facility] Comment on above: Performed By: #### L 500.2500, L100.0500 #### [facility] [address] [place], [address] Platelet mean volume (Bld) [Entitic vol] 10.8 fL Normal 6.2-12.0 [facility] Comment on above: Performed By: #### L 500.2500, L100.0500 #### [facility] Laboratory [address] [place], [address] Platelets (Bld) [#/Vol] 317 10*3/uL Normal 150-450 [facility] Comment on above: Performed By: #### L 500.2500, L100.0500 #### [facility] Laboratory [address] [place], [address] RBC (Bld) [#/Vol] 5.02 10*6/uL Normal 4.2-5.4 [facility] Comment on above: Performed By: #### L 500.2500, L100.0500 #### [facility] [address] [place], [address] RDW SD 45.3 fl High 35.1-43.9 [facility] Comment on above: Performed By: #### L 500.2500, L100.0500 #### [facility] [address] [place], [address] WBC (Bld) [#/Vol] 10.3 10*3/uL Normal 4.4-11.0 [facility] Comment on above: Performed By: #### L 500.2500, L100.0500 #### [facility] Laboratory [address] [place], [address] Calculated total iron bindin g capacityon 07-23-2024 Total Iron Binding Capacity 238 ug/dL Low 250-450 [facility] Calculated very low density lipoprotein (VLDL) cholesterol measurementon 07-23-2024 VLDL Cholesterol 18 mg/dL 5-40 [facility] Carbamazepine (Tegretol)on 0 07-23-2024 CARBAMAZEPINE < 2.0 Low 4.0-12.0 [facility] Comment on above: Performed By: #### L 7400.3000, L506.1000, L503.0105, L500.4050, L501.9520, L801.1541, L801.1543, L3380.1400, L100.0100, L3310.0000, L506.0250 #### [facility] Laboratory [address] [place], [address] Carbon dioxide, total [Moles /volume] in Central venous bloodon 07-23-2024 CO2 [Moles/Vol] 18.1 mmol/L Low 21.0-32.0 [facility] Chloride assayon 07-23-2024 Chloride [Moles/Vol] 110 mmol/L High 98-108 [facility] Comprehensive Metabolic Prof ilon 07-23-2024 Albumin [Mass/Vol] 3.9 g/dL Normal 3.5-5.0 [facility] Comment on above: Performed By: #### L 7400.3000, L506.1000, L503.0105, L500.4050, L501.9520, L801.1541, L801.1543, L3380.1400, L100.0100, L3310.0000, L506.0250 #### [facility] [facility] [address] [place], [address] Albumin/Globulin [Mass ratio] 1.1 {ratio} Normal 0.9-2.4 [facility] Comment on above: Performed By: #### L 7400.3000, L506.1000, L503.0105, L500.4050, L501.9520, L801.1541, L801.1543, L3380.1400, L100.0100, L3310.0000, L506.0250 #### [facility] Laboratory [address] [place], [address] ALK PHOS 116 U/L High 35-104 [facility] [place] Comment on above: Performed By: #### L 7400.3000, L506.1000, L503.0105, L500.4050, L501.9520, L801.1541, L801.1543, L3380.1400, L100.0100, L3310.0000, L506.0250 #### [facility] Laboratory [address] [place], [place], [phone] ALT [Catalytic activity/Vol] 14 U/L Normal <=34 [facility] Comment on above: Performed By: #### L 7400.3000, L506.1000, L503.0105, L500.4050, L501.9520, L801.1541, L801.1543, L3380.1400, L100.0100, L3310.0000, L506.0250 #### [facility] Laboratory [address] [place], [place], [phone] ([phone]) AST [Catalytic activity/Vol] 18 U/L Normal <=31 [facility] Comment on above: Performed By: #### L 7400.3000, L506.1000, L503.0105, L500.4050, L501.9520, L801.1541, L801.1543, L3380.1400, L100.0100, L3310.0000, L506.0250 #### [facility] Laboratory [address] [place], [place], [phone] ([phone]) Bilirubin [Mass/Vol] 0.25 mg/dL Normal 0.00-1.30 [facility] Comment on above: Performed By: #### L 7400.3000, L506.1000, L503.0105, L500.4050, L501.9520, L801.1541, L801.1543, L3380.1400, L100.0100, L3310.0000, L506.0250 #### [facility] Laboratory [address] [place], [place], [phone] (154) BUN/CRE 8.2 RATIO Low 10-20 [facility] Comment on above: Performed By: #### L 7400.3000, L506.1000, L503.0105, L500.4050, L501.9520, L801.1541, L801.1543, L3380.1400, L100.0100, L3310.0000, L506.0250 #### [facility] Laboratory [address] [place], [address] Calcium [Mass/Vol] 9.1 mg/dL Normal 7.6-11.0 [facility] Comment on above: Performed By: #### L 7400.3000, L506.1000, L503.0105, L500.4050, L501.9520, L801.1541, L801.1543, L3380.1400, L100.0100, L3310.0000, L506.0250 #### [facility] Laboratory [address] [place], [address] Chloride [Moles/Vol] 110 mmol/L High 98-108 [facility] Comment on above: Performed By: #### L 7400.3000, L506.1000, L503.0105, L500.4050, L501.9520, L801.1541, L801.1543, L3380.1400, L100.0100, L3310.0000, L506.0250 #### [facility] Laboratory [address] [place], [address] CO2 [Moles/Vol] 18.1 mmol/L Low 21.0-32.0 [facility] Comment on above: Performed By: #### L 7400.3000, L506.1000, L503.0105, L500.4050, L501.9520, L801.1541, L801.1543, L3380.1400, L100.0100, L3310.0000, L506.0250 #### [facility] Laboratory [address] [place], [address] Creatinine [Mass/Vol] 1.00 mg/dL Normal 0.70-1.20 [facility] Comment on above: Performed By: #### L 7400.3000, L506.1000, L503.0105, L500.4050, L501.9520, L801.1541, L801.1543, L3380.1400, L100.0100, L3310.0000, L506.0250 #### [facility] Laboratory [address] [place], [place], [phone] ([phone]) GAP 12 Normal 5-15 [facility] Comment on above: Performed By: #### L 7400.3000, L506.1000, L503.0105, L500.4050, L501.9520, L801.1541, L801.1543, L3380.1400, L100.0100, L3310.0000, L506.0250 #### [facility] Laboratory [address] [place], [address] GFR/1.73 sq M.predicted among non-blacks MDRD (S/P/Bld) [Vol rate/Area] 72 mL/min/{1.73_m2} Normal >60 [facility] Comment on above: Result Comment: mL/m in/1.73m2 CKD-EPI Creatinine Equation (2020) Performed By: #### L 7400.3000, L506.1000, L503.0105, L500.4050, L501.9520, L801.1541, L801.1543, L3380.1400, L100.0100, L3310.0000, L506.0250 #### [facility] [address] [place], [place], [phone] Globulin (S) [Mass/Vol] 3.5 g/dL Normal 2.2-4.2 [facility] Comment on above: Performed By: #### L 7400.3000, L506.1000, L503.0105, L500.4050, L501.9520, L801.1541, L801.1543, L3380.1400, L100.0100, L3310.0000, L506.0250 #### [facility] [address] [place], [address] Glucose [Mass/Vol] 96 mg/dL Normal 70-99 [facility] Comment on above: Performed By: #### L 7400.3000, L506.1000, L503.0105, L500.4050, L501.9520, L801.1541, L801.1543, L3380.1400, L100.0100, L3310.0000, L506.0250 #### [facility] [address] [place], [address] Potassium [Moles/Vol] 4.1 mmol/L Normal 3.3-5.1 [facility] Comment on above: Performed By: #### L 7400.3000, L506.1000, L503.0105, L500.4050, L501.9520, L801.1541, L801.1543, L3380.1400, L100.0100, L3310.0000, L506.0250 #### [facility] [address] [place], [address] Sodium [Moles/Vol] 139 mmol/L Normal 133-145 [facility] Comment on above: Performed By: #### L 7400.3000, L506.1000, L503.0105, L500.4050, L501.9520, L801.1541, L801.1543, L3380.1400, L100.0100, L3310.0000, L506.0250 #### [facility] [address] [place], [address] T PROT 7.4 g/dL Normal 5.9-8.4 [facility] Comment on above: Performed By: #### L 7400.3000, L506.1000, L503.0105, L500.4050, L501.9520, L801.1541, L801.1543, L3380.1400, L100.0100, L3310.0000, L506.0250 #### [facility] [address] [place], [place], [phone] Urea nitrogen [Mass/Vol] 8 mg/dL Normal 4-19 [facility] Comment on above: Performed By: #### L 7400.3000, L506.1000, L503.0105, L500.4050, L501.9520, L801.1541, L801.1543, L3380.1400, L100.0100, L3310.0000, L506.0250 #### [facility] [address] [facility] [place], [address] Eosinophil percentageon 04-0 Eosinophils/100 WBC (Bld) 0.0 % 0-5 [facility] Erythrocyte distribution wid th (RBC) [Ratio]on 07-23-2024 Erythrocyte distribution width (RBC) [Entitic vol] 45.3 fL High 35.1-43.9 [facility] Erythrocyte distribution wid th ratioon 07-23-2024 Erythrocyte distribution width (RBC) [Ratio] 13.5 % 11.6-14.6 [facility] GFR/1.73 sq M.predicted dione g non-blacks MDRD (S/P/Bld) [Vol rate/Area]on 07-23-2024 Estimated GFR (MDRD) Non-Af Amer 72 >60 [facility] Comment on above: mL/min/1.73m2 CKD-EP I Creatinine Equation (2020) Hematocrit Auto (Bld) [Volum e fraction]on 07-23-2024 Hematocrit (Bld) [Volume fraction] 45.5 % 37-47 [facility] Hemoglobin A1con 07-23-2024 HbA1c (Bld) [Mass fraction] 5.2 % Low <=5.6 [facility] Comment on above: Performed By: #### L 7400.3000, L506.1000, L503.0105, L500.4050, L501.9520, L801.1541, L801.1543, L3380.1400, L100.0100, L3310.0000, L506.0250 #### [facility] [address] [place], [address] Hemoglobin A1c percentageon 07-23-2024 HbA1c (Bld) [Mass fraction] 5.2 % Low >5.7 [facility] Hemoglobin measurementon Hemoglobin (Bld) [Mass/Vol] 14.4 g/dL 12.0-15.0 [facility] Immature granulocytes/100 WB C Auto (Bld)on 07-23-2024 Immature granulocytes/100 WBC (Bld) 0.400 % 0.0-0.9 [facility] Comment on above: IG% - Immature Granu locytes (promyelocytes, myelocytes and metamyelocytes) > 1% indicates that a LEFT SHIFT is Present. Iron (Unsp spec) [Mass/Mass] on 07-23-2024 Iron [Mass/Vol] 61 ug/dL 50-170 [facility] Iron saturation [Mass fracti on]on 07-23-2024 Iron Saturation 25.6 % 13-59 [facility] Comment on above: Previous reported re sult: 26.0 %Edited by: HUMPHREY on 07/23/24:1227 AMENDED REPORT 07/23/24 1227 IRON SATURATION previously reported as: 26.0 % Iron+Iron Binding Capacityon 07-23-2024 TIBC 238 ug/dL Low 250-450 [facility] Comment on above: Performed By: #### L 7400.3000, L506.1000, L503.0105, L500.4050, L501.9520, L801.1541, L801.1543, L3380.1400, L100.0100, L3310.0000, L506.0250 #### [facility] [address] [place], [address] LDL calc ser/plason 07-24-19 25 LDL Cholesterol, Calculated 111 mg/dL [facility] Comment on above: Waadlhjnar=878-601 m g/dL & Higher Sqqw=456 mg/dL or greater Laboratory - Chemistry and C hemistry - challengeon 07-23-2024 AST [Catalytic activity/Vol] 18 U/L <32 [facility] Lipid Profileon 07-23-2024 CHOL:HDL 4.50 Normal [facility] Comment on above: Performed By: #### L 7400.3000, L506.1000, L503.0105, L500.4050, L501.9520, L801.1541, L801.1543, L3380.1400, L100.0100, L3310.0000, L506.0250 #### [facility] Laboratory [address] [place], [address] Cholesterol [Mass/Vol] 166 mg/dL Normal <=200 [facility] Comment on above: Result Comment: Chol esterol level, Desirable <200 mg/dL Borderline high cholesterol 200-239 mg/dL High cholesterol >=240 mg/dL Recommendations of the NCEP Adult Treatment Panel for the following risk-cutoff thresholds for the [place] population. Performed By: #### L 7400.3000, L506.1000, L503.0105, L500.4050, L501.9520, L801.1541, L801.1543, L3380.1400, L100.0100, L3310.0000, L506.0250 #### [facility] Laboratory [address] [place], [address] Cholesterol in HDL [Mass/Vol] 37 mg/dL Low [facility] Comment on above: Result Comment: Sonia onal Cholesterol Education Program (NCEP) guidelines: <40 mg/dL: Low HDL-cholesterol (major risk factor for CHD) >= 60 mg/dL: High HDL-cholesterol (negative risk factor for CHD) HDL-cholesterol is affected by a number of factors, e.g. smoking, exercise, hormones, sex and age. Performed By: #### L 7400.3000, L506.1000, L503.0105, L500.4050, L501.9520, L801.1541, L801.1543, L3380.1400, L100.0100, L3310.0000, L506.0250 #### [facility] Laboratory [address] [place], [address] Cholesterol in LDL [Mass/Vol] 111 mg/dL Normal [facility] Comment on above: Result Comment: Bord joomlp=636-019 mg/dL Higher Avdr=849 mg/dL or greater Performed By: #### L 7400.3000, L506.1000, L503.0105, L500.4050, L501.9520, L801.1541, L801.1543, L3380.1400, L100.0100, L3310.0000, L506.0250 #### [facility] Laboratory [address] [place], [address] Cholesterol in VLDL [Mass/Vol] 18 mg/dL Normal 5-40 [facility] Comment on above: Performed By: #### L 7400.3000, L506.1000, L503.0105, L500.4050, L501.9520, L801.1541, L801.1543, L3380.1400, L100.0100, L3310.0000, L506.0250 #### [facility] Laboratory [address] [place], [place], [phone] ([phone] Triglyceride [Mass/Vol] 92 mg/dL Normal [facility] Comment on above: Result Comment: The drugs N-Acetylcysteine and Metamizole may falsely depress this assay. Normal range: <150 mg/dL Borderline High: 150-199 mg/dL High: 200-499 mg/dL Very High: >500 mg/dL Performed By: #### L 7400.3000, L506.1000, L503.0105, L500.4050, L501.9520, L801.1541, L801.1543, L3380.1400, L100.0100, L3310.0000, L506.0250 #### [facility] Laboratory [address] [place], [place], [phone] ([phone] Lymphocytes Auto (Unsp spec) [#/Vol]on 07-23-2024 Lymphocytes (Bld) [#/Vol] 1.82 10*3/uL 0.83-4.51 [facility] Lymphocytes/100 WBC Auto (Un sp spec)on 07-23-2024 Lymphocytes/100 WBC (Bld) 17.6 % Low 19-41 [facility] MCV (mean corpuscular volume ) determinationon 07-23-2024 MCV (RBC) [Entitic vol] 90.6 fL 81-99 [facility] Mean corpuscular hemoglobin (MCH) determinationon 07-23-2024 MCH (RBC) [Entitic mass] 28.7 pg 27.0-32.0 [facility] Mean corpuscular hemoglobin concentration (MCHC) determinationon 07-23-2024 MCHC (RBC) [Mass/Vol] 31.6 g/dL Low 32-36 [facility] Mean platelet volume determi nationon 07-23-2024 Platelet mean volume (Bld) [Entitic vol] 10.8 fL 6.2-12.0 [facility] Monocyte percentageon 2024 Monocytes/100 WBC (Bld) 6.4 % 0-10 [facility] Neutrophil percentageon 04- Neutrophils/100 WBC (Bld) 75.5 % High 47-70 [facility] No Panel Informationon 07-23 Unsaturated Iron Binding Capacity 177 ug/dL Low 228-428 [facility] Nucleated red blood cell per centageon 07-23-2024 Nucleated RBC/100 WBC (Bld) [Ratio] 0 % 0-5 [facility] Platelet counton 07-23-2024 Platelets (Bld) [#/Vol] 317 10*3/uL 150-450 [facility] Potassium (Unsp spec) [Mass/ Vol]on 07-23-2024 Potassium [Moles/Vol] 4.1 mmol/L 3.3-5.1 [facility] Prolactin [Mass/Vol]on 07-23 Prolactin 111.0 ng/mL High 4.8-33.4 [facility] Comment on above: Performed at: [address] [id number] Director: Spencer Delgado PhD, Phone: [phone] RBC Auto (Bld) [#/Vol]on RBC (Bld) [#/Vol] 5.02 10*6/uL 4.2-5.4 [facility] Screening total cholesterol/ high density lipoprotein (HDL) cholesterol ratioon 07-23-2024 Cholesterol.total/Choles terol in HDL [Mass ratio] 4.50 {ratio} [facility] Serum creatinine measurement (mass/volume)on 07-23-2024 Creatinine [Mass/Vol] 1.00 mg/dL 0.70-1.20 [facility] Serum globulin measurementon 07-23-2024 Globulin (S) [Mass/Vol] 3.5 g/dL 2.2-4.2 [facility] Serum glucose measurement (m ass/volume)on 07-23-2024 Glucose [Mass/Vol] 96 mg/dL 70-99 [facility] Serum or plasma alanine drummond otransferase (ALT) measurementon 07-23-2024 ALT [Catalytic activity/Vol] 14 U/L <35 [facility] Serum or plasma albumin caryl urement (mass/volume)on 07-23-2024 Albumin [Mass/Vol] 3.9 g/dL 3.5-5.0 [facility] Serum or plasma albumin/glob ulin mass ratioon 07-23-2024 Albumin/Globulin [Mass ratio] 1.1 {ratio} 0.9-2.4 [facility] Serum or plasma alkaline sumeet sphatase measurementon 07-23-2024 ALP [Catalytic activity/Vol] 116 U/L High 35-104 [facility] Serum or plasma calcium caryl urement (mass/volume)on 07-23-2024 Calcium [Mass/Vol] 9.1 mg/dL 7.6-11.0 [facility] Serum or plasma cholesterol in HDL measurement (mass/volume)on 07-23-2024 Cholesterol in HDL [Mass/Vol] 37 mg/dL Low >40 [facility] Comment on above: National Cholesterol Education Program (NCEP) guidelines:<40 mg/dL: Low HDL-cholesterol (major risk factor for CHD)>= 60 mg/dL: High HDL-cholesterol (negative risk factor for CHD)HDL-cholesterol is affected by a number of factors, e.g. smoking, exercise, hormones, sex and age. Serum or plasma cholesterol measurement (mass/volume)on 07-23-2024 Cholesterol [Mass/Vol] 166 mg/dL <201 [facility] Comment on above: Cholesterol level, D esirable <200 mg/dLBorderline high cholesterol 200-239 mg/dLHigh cholesterol >=240 mg/dLRecommendations of the NCEP Adult Treatment Panel for the following risk-cutoff thresholds for the [place] population. Serum or plasma urea nitroge n measurement (mass/volume)on 07-23-2024 Urea nitrogen [Mass/Vol] 8 mg/dL 4-19 [facility] Sodium levelon 07-23-2024 Sodium [Moles/Vol] 139 mmol/L 133-145 [facility] TSH DL <= 0.005 mIU/L Qnon 0 07-23-2024 Thyroid Stimulating Hormone (TSH) 2.990 uIU/mL 0.300-4.20 0 [facility] Thyroid Stim Hormone (TSH)on 07-23-2024 TSH 2.990 uIU/mL Normal 0.300-4.20 0 [facility] Comment on above: Performed By: #### L 7400.3000, L506.1000, L503.0105, L500.4050, L501.9520, L801.1541, L801.1543, L3380.1400, L100.0100, L3310.0000, L506.0250 #### [facility] Laboratory [facility] [address] [place], [place], [id number] Total proteinon 07-23-2024 Protein [Mass/Vol] 7.4 g/dL 5.9-8.4 [facility] Triglycerides measurementon 07-23-2024 Triglyceride [Mass/Vol] 92 mg/dL <199 [facility] Comment on above: The drugs N-Acetylcy steine and Metamizole may falsely depress this assay. Normal range: <150 mg/dLBorderline High: 150-199 mg/dLHigh: 200-499 mg/dLVery High: >500 mg/dL Urinalysis, Routine (Dipstic k)on 07-23-2024 BILIRUBIN URINE Normal Negative [facility] Comment on above: Order Comment: CLEAN CATCH Result Comment: AMY ENT UNABLE TO GIVE URINE Performed By: #### L 500.2500, L100.0500 #### [facility] [address] [place], [address] Clarity (U) Normal Clear [facility] Comment on above: Order Comment: CLEAN CATCH Result Comment: AMY ENT UNABLE TO GIVE URINE Performed By: #### L 500.2500, L100.0500 #### [facility] [address] [place], [address] Color (U) Normal Yellow [facility] Comment on above: Order Comment: CLEAN CATCH Result Comment: AMY ENT UNABLE TO GIVE URINE Performed By: #### L 500.2500, L100.0500 #### [facility] [address] [place], [address] GLUCOSE, UR Normal Normal [facility] Comment on above: Order Comment: CLEAN CATCH Result Comment: AMY ENT UNABLE TO GIVE URINE Performed By: #### L 500.2500, L100.0500 #### [facility] [address] [place], [address] KETONE UR Normal Negative [facility] Comment on above: Order Comment: CLEAN CATCH Result Comment: AMY ENT UNABLE TO GIVE URINE Performed By: #### L 500.2500, L100.0500 #### [facility] [address] [place], [address] LEUK ESTERASE Normal Negative [facility] Comment on above: Order Comment: CLEAN CATCH Result Comment: AMY ENT UNABLE TO GIVE URINE Performed By: #### L 500.2500, L100.0500 #### [facility] [address] [place], [address] Nitrite Ql (U) Normal Negative [facility] Comment on above: Order Comment: CLEAN CATCH Result Comment: AMY ENT UNABLE TO GIVE URINE Performed By: #### L 500.2500, L100.0500 #### [facility] [address] [place] [place], [address] OCCULT BLOOD-UR Normal Negative [facility] Comment on above: Order Comment: CLEAN CATCH Result Comment: AMY ENT UNABLE TO GIVE URINE Performed By: #### L 500.2500, L100.0500 #### [facility] [address] [place], [address] pH UR Normal 5.0 - 8.0 [facility] Comment on above: Order Comment: CLEAN CATCH Result Comment: AMY ENT UNABLE TO GIVE URINE Performed By: #### L 500.2500, L100.0500 #### [facility] [address] [place], [address] PROT DIPSTX Normal Negative [facility] Comment on above: Order Comment: CLEAN CATCH Result Comment: AMY ENT UNABLE TO GIVE URINE Performed By: #### L 500.2500, L100.0500 #### [facility] [address] [place], [address] SP.GR. DIPSTX Normal 1.002-1.03 0 [facility] Comment on above: Order Comment: CLEAN CATCH Result Comment: AMY ENT UNABLE TO GIVE URINE Performed By: #### L 500.2500, L100.0500 #### [facility] [address] [place], [address] UR Preservative Normal [facility] Comment on above: Order Comment: CLEAN CATCH Result Comment: AMY ENT UNABLE TO GIVE URINE Performed By: #### L 500.2500, L100.0500 #### [facility] [address] [place], [address] UROBILI Normal Normal [facility] Comment on above: Order Comment: CLEAN CATCH Result Comment: AMY ENT UNABLE TO GIVE URINE Performed By: #### L 500.2500, L100.0500 #### [facility] [address] [place], [address] White blood cell (WBC) count on 07-23-2024 WBC (Bld) [#/Vol] 10.3 10*3/uL 4.4-11.0 [facility] carBAMazepine [Mass/Vol]on 0 07-23-2024 Carbamazepine (Tegretol) Level < 2.0 ug/mL Low 4.0-12.0 [facility] CNPNon 07-07-2024 CNPN Telephone (FAMPWS) ----- MARIA DEL ROSARIO LAWS ([id number]) 1980 F Date Time Provider Department 07[facility]07[facility]24 [facility] During your visit today, we recorded the following information about you: Marita Gamboa LPN 07/07/2024 3:56 PM Signed Patient mother Kennedi calling upset that daughter only gets 10 day rx supply of her Cyclobenzaprine at one time. She said she takes the medication three times daily for leg cramps. She would need 90 tablets for a 30 day supply. Patient uses [facility] for her pharmacy. Explained that the rx is written for as needed, short term use rx. Mother is still wanting 90 tablets with refills on the rx. Please advise Daniel Tan MD 07/07/2024 4:50 PM Signed New Rx done MD Kristian Portillo Rilee, MA 07/07/2024 5:00 PM Signed Called and left message on patients voicemail to return call to the office and ask to speak with a triage nurse. Update that Rx has vikram sent for Flexeril. CORAZON Quan Amanda, RN 07/07/2024 5:06 PM Signed Pts mother called and is notified of providers message. She voices understanding. Emilee Brady RN Allergies As of Date: 07/07/2024 Noted Allergy Reaction DAYQUIL LIQUICAPS ([id number]* 3 14 - Other: See Comments Comments: Caused Seizure ARITHROMYCIN (AZITHROMYCIN) 10/27/2012 8 - GI Upset Comments: Z-Pack DOXYCYCLINE 07/22/2008 8 - GI Upset LATEX 08/21/2005 2 - Rash MUCINEX DM (DEXTROMETHORPHAN-GUAI* 5 - Intolerance Comments: gran mal seizure. [...] Intolerance Comments: Amoxil is ok Date Reviewed: 04/04/2024 Reviewed by: Wilmer Murillo MD - Fully Assessed Reason for Visit: Medication Problem [65] Order(s):cyclobenzaprine (FLEXERIL) 10 mg tabletTake 1 tablet by mouth three times a day as needed for muscle spasm.Disp: 90 tabletRfl: 5 Prescriptions as of 07/07/2024 - cyclobenzaprine (FLEXERIL) 10 mg tablet Take 1 tablet by mouth three times a day as needed for muscle spasm. - metoprolol succinate ER (TOPROL XL) 25 mg 24 hr tablet Take 1 tablet by mouth once daily. - benzonatate (TESSALON PERLES) 100 mg capsule Take 2 capsules by mouth three times a day as needed. - Dextromethorphan-guaiFENe sin (ROBITUSSIN DM) 10-200 mg/5 mL liqd Take 5 mL by mouth every 6 hours as needed. - fluticasone-salmeterol (ADVAIR DISKUS) 250-50 mcg/dose inhaler Inhale 1 Puff as instructed two times a day. Rinse and gargle mouth after use with water. - TYLENOL ARTHRITIS PAIN 650 mg CR tablet Take 1 tablet by mouth every 8 hours as needed. - omeprazole (PRILOSEC) 40 mg capsule Take 40 mg by mouth once daily. - albuterol HFA (VENTOLIN HFA) 90 mcg/actuation inhaler Inhale 2 Puffs as instructed every 4 hours as needed for wheezing/shortness of breath. - benztropine (COGENTIN) 1 mg tablet TAKE 1 AND 1/2 (ONE AND ONE-HALF) TABLETS BY MOUTH IN THE MORNING and ONE TABLET AT BEDTIME - montelukast (SINGULAIR) 10 mg tablet Take 1 tablet by mouth daily at bedtime. - citalopram (CELEXA) 20 mg tablet 20 mg once daily. 1 tablet daily - zonisamide (ZONEGRAN) 100 mg capsule Take 100 mg by mouth once daily. 2 capsules by mouth twice daily - levETIRAcetam (KEPPRA) 750 mg tablet Take 1,000 mg by mouth two times a day. - Norethindrone, Contraceptive, (ORTHO MICRONOR) 0.35 mg tablet Take 1 tablet by mouth once daily. - iloperidone (FANAPT) 4 mg tab [...] list, unable to verify list. Aurora Doan Mn 01-02-18 Taking Vimpat, Zonegran, and Albuterol. 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 (more content not included)... Normal [facility] CNPNon 06-13-2024 CNPN Telephone (JACOBOTR) ----- MARIA DEL ROSARIO LAWS ([id number]) 1980 F Date Time Provider Department 06/13/24 WILMER MURILLO During your visit today, we recorded the following information about you: Sally Cyr LPN 06/13/2024 10:45 AM Signed [facility] scheduling called to let you know they reached out to patient 3x to schedule but the last time they reached the patient she said she would think about it but did not schedule and told them she would call back. Sally Cyr LPN Allergies As of Date: 06/13/2024 Noted Allergy Reaction DAYQUIL LIQUICAPS ([id number]* 3 14 - Other: See Comments Comments: Caused Seizure ARITHROMYCIN (AZITHROMYCIN) 10/27/2012 8 - GI Upset Comments: Z-Pack DOXYCYCLINE 07/22/2008 8 - GI Upset LATEX 08/21/2005 2 - Rash MUCINEX DM (DEXTROMETHORPHAN-GUAI* 5 - Intolerance Comments: gran mal seizure. [...] Intolerance Comments: Amoxil is ok Date Reviewed: 04/04/2024 Reviewed by: Wilmer Murillo MD - Fully Assessed Reason for Visit: [facility] CTA [Other] Prescriptions as of 06/13/2024 - metoprolol succinate ER (TOPROL XL) 25 mg 24 hr tablet Take 1 tablet by mouth once daily. - benzonatate (TESSALON PERLES) 100 mg capsule Take 2 capsules by mouth three times a day as needed. - Dextromethorphan-guaiFENe sin (ROBITUSSIN DM) 10-200 mg/5 mL liqd Take 5 mL by mouth every 6 hours as needed. - cyclobenzaprine (FLEXERIL) 10 mg tablet Take 1 tablet by mouth three times a day as needed for muscle spasm. - fluticasone-salmeterol (ADVAIR DISKUS) 250-50 mcg/dose inhaler Inhale 1 Puff as instructed two times a day. Rinse and gargle mouth after use with water. - TYLENOL ARTHRITIS PAIN 650 mg CR tablet Take 1 tablet by mouth every 8 hours as needed. - omeprazole (PRILOSEC) 40 mg capsule Take 40 mg by mouth once daily. - albuterol HFA (VENTOLIN HFA) 90 mcg/actuation inhaler Inhale 2 Puffs as instructed every 4 hours as needed for wheezing/shortness of breath. - benztropine (COGENTIN) 1 mg tablet TAKE 1 AND 1/2 (ONE AND ONE-HALF) TABLETS BY MOUTH IN THE MORNING and ONE TABLET AT BEDTIME - montelukast (SINGULAIR) 10 mg tablet Take 1 tablet by mouth daily at bedtime. - cetirizine (ZYRTEC) 10 mg tablet Take 1 tablet by mouth once daily. - citalopram (CELEXA) 20 mg tablet 20 mg once daily. 1 tablet daily - zonisamide (ZONEGRAN) 100 mg capsule Take 100 mg by mouth once daily. 2 capsules by mouth twice daily - levETIRAcetam (KEPPRA) 750 mg tablet Take 1,000 mg by mouth two times a day. - Norethindrone, Contraceptive, (ORTHO MICRONOR) 0.35 mg tablet Take 1 tablet by mouth once daily. - iloperidone (FANAPT) 4 mg tab [...] list, unable to verify list. Aurora Doan Corazon [birth year] Taking Vimpat, Zonegran, and Albuterol. Linda Wall RN Problem List As Of Date 06/13/2024 Noted Resolved Other malaise and fatigue [R53.81, R53.83] 12/30/2004 11/06/2014 Myalgia and myositis, unspecified [[id number]] 05/08/2014 ESOPHAGEAL REFLUX [K21.9] Chronic factitious illness [...] Class III, BMI >= 40 [E66.01] 06/03/2018 Abnormal nuclear cardiac imaging test [R93.1] 07/27/2023 Other chest pain [R07.89] 07/27/2023 Encounter Status:Closed by ARYA PADILLA (more content not included)... Normal [facility] .Auto Diffon 06-10-2024 Basophil, Absolute 0.0 10 3/mcL Normal 0.0-0.3 [facility] Comment on above: Performed By: #### A DIFF, CBC, ANEU #### [address] [address] Basophils/100 WBC (Bld) 0.3 % Normal 0.0-2.5 [facility] Comment on above: Performed By: #### A DIFF, CBC, ANEU #### [address] [address] Eosinophil, Absolute 0.0 10 3/mcL Normal 0.0-0.7 [facility] Comment on above: Performed By: #### A DIFF, CBC, ANEU #### [address] [address] Eosinophils/100 WBC (Bld) 0.0 % Normal 0.0-6.0 [facility] Comment on above: Performed By: #### A DIFF, CBC, ANEU #### [address] [address] Lymphocyte, Absolute 2.3 10 3/mcL Normal 0.9-4.3 [facility] Comment on above: Performed By: #### A DIFF, CBC, ANEU #### [address] [address] Lymphocytes/100 WBC (Bld) 29.0 % Normal 20.0-40.0 [facility] Comment on above: Performed By: #### A DIFF, CBC, ANEU #### [address] [address] Monocyte, Absolute 0.7 10 3/mcL Normal 0.1-1.4 [facility] Comment on above: Performed By: #### A DIFF, CBC, ANEU #### [address] [address] Monocytes/100 WBC (Bld) 8.9 % Normal 2.0-13.0 [facility] Comment on above: Performed By: #### A DIFF, CBC, ANEU #### [address] [address] Neutrophils/100 WBC (Bld) 61.8 % Normal 50.0-75.0 [facility] Comment on above: Performed By: #### A DIFF, CBC, ANEU #### [place] [id number] .NEUABSon 06-10-2024 Neutrophil, Absolute 4.9 10 3/mcL Normal 2.3-8.1 [facility] Comment on above: Performed By: #### A DIFF, CBC, ANEU #### [place] [address] CBCon 06-10-2024 Erythrocyte distribution width (RBC) [Ratio] 14.2 % Normal 11.5-15.5 [facility] Comment on above: Performed By: #### A DIFF, CBC, ANEU #### [place] [address] Hematocrit (Bld) [Volume fraction] 41.5 % Normal 34.0-46.0 [facility] Comment on above: Performed By: #### A DIFF, CBC, ANEU #### [place] [address] Hgb 14.0 G/dL Normal 12.0-16.0 [facility] Comment on above: Performed By: #### A DIFF, CBC, ANEU #### [place] [address] MCH (RBC) [Entitic mass] 29.7 pg Normal 27.0-33.0 [facility] Comment on above: Performed By: #### A DIFF, CBC, ANEU #### [place] [address] MCHC 33.9 G/dL Normal 32.0-36.0 [facility] Comment on above: Performed By: #### A DIFF, CBC, ANEU #### [place] [address] MCV (RBC) [Entitic vol] 87.7 fL Normal 80.0-99.0 [facility] Comment on above: Performed By: #### A DIFF, CBC, ANEU #### [place] [address] Platelet 286 10 3/mcL Normal 150-450 [facility] Comment on above: Performed By: #### A DIFF, CBC, ANEU #### [facility] [address] [place] [address] Platelet mean volume (Bld) [Entitic vol] 9.2 fL Normal 6.6-10.5 [facility] Comment on above: Performed By: #### A DIFF, CBC, ANEU #### [address] [address] RBC 4.73 10 6/mcL Normal 4.10-5.30 [facility] Comment on above: Performed By: #### A DIFF, CBC, ANEU #### [address] [address] WBC 7.9 10 3/mcL Normal 4.5-10.8 [facility] Comment on above: Performed By: #### A DIFF, CBC, ANEU #### [address] [address] LABORATORYOrdered By: SYSTEM SYSTEM on 06-10-2024 Basophils (Bld) [#/Vol] 0.0 103/mcL Normal 0.0 - 0.3 10^3/mcL Workflow SS Basophils/100 WBC (Bld) 0.3 % Normal 0.0 - 2.5 % Workflow SS Eosinophils (Bld) [#/Vol] 0.0 103/mcL Normal 0.0 - 0.7 10^3/mcL Workflow SS Eosinophils/100 WBC (Bld) 0.0 % Normal 0.0 - 6.0 % Workflow SS Erythrocyte distribution width (RBC) [Ratio] 14.2 % Normal 11.5 - 15.5 % AH Workflow SS Hematocrit (Bld) [Volume fraction] 41.5 % Normal 34.0 - 46.0 % AH Workflow SS Hemoglobin (Bld) [Mass/Vol] 14.0 G/dL Normal 12.0 - 16.0 G/dL AH Workflow SS Lymphocytes (Bld) [#/Vol] 2.3 103/mcL Normal 0.9 - 4.3 10^3/mcL Workflow SS Lymphocytes/100 WBC (Bld) 29.0 % Normal 20.0 - 40.0 % Workflow SS MCH (RBC) [Entitic mass] 29.7 pg Normal 27. 0 - 33.0 pg AH Workflow SS MCHC 33.9 G/dL Normal 32.0 - 36.0 G/dL AH Workflow SS MCV (RBC) [Entitic vol] 87.7 fL Normal 80.0 - 99.0 fL AH Workflow SS Monocytes (Bld) [#/Vol] 0.7 103/mcL Normal 0.1 - 1.4 10^3/mcL AH Workflow SS Monocytes/100 WBC (Bld) 8.9 % Normal 2.0 - 13.0 % AH Workflow SS Neutrophils (Bld) [#/Vol] 4.9 103/mcL Normal 2.3 - 8.1 10^3/mcL AH Workflow SS Neutrophils/100 WBC (Bld) 61.8 % Normal 50.0 - 75.0 % AH Workflow SS Platelet mean volume (Bld) [Entitic vol] 9.2 fL Normal 6.6 - 10.5 fL Workflow SS Platelets (Bld) [#/Vol] 286 103/mcL Normal 150 - 450 10^3/mcL Workflow SS RBC (Bld) [#/Vol] 4.73 106/mcL Normal 4.10 - 5.30 10^6/mcL Workflow SS WBC (Bld) [#/Vol] 7.9 103/mcL Normal 4.5 - 10.8 10^3/mcL Workflow SS .GFRon 06-09-2024 Estimated Glomerular Filtration Rate 111 ml/min/1.73sqm Normal [facility] Comment on above: Result Comment: Stages of Chronic Kidney Disease (CKD) Stage Description eGFR(ml/min/1.73 sq.m.) CKD 1 Normal kidney function or >=90 normal kindney function with possible kidney damage (ex. Proteinuria) CKD 2 Kidney damage with mild loss 60-89 of kidney function CKD 3a Mild to moderate loss of kidney 45-59 function CKD 3b Moderate to severe loss of 30-44 of kindey function CKD 4 Severe loss of kidney function 15-29 CKD 5 Kidney failure <15 Note: (go live 2024) the eGFR calculation was updated to the 2020 CKD-EPI creatinine equation without a race factor to calculate the eGFR results. Performed By: #### C MP, DRUGS, GFR #### [place] [address] CMPon 06-09-2024 BUN/Creatinine Ratio Unable to Calculate Normal 10.0-2 2.0 [facility] Comment on above: Result Comment: Unab le to calculate this test result accurately. Results used to calculate this test are outside the reportable range. Performed By: #### C MP, DRUGS, GFR #### [place] [address] Urea nitrogen [Mass/Vol] mg/dL Low 8.0-22.0 [facility] Comment on above: Performed By: #### C MP, DRUGS, GFR #### [place] [address] Albumin Level 3.4 G/dL Normal 3.2-4.8 [facility] Comment on above: Performed By: #### C MP, DRUGS, GFR #### [place] [address] Albumin/Globulin [Mass ratio] 0.9 {ratio} Normal 0.9-1.6 [facility] Comment on above: Performed By: #### C MP, DRUGS, GFR #### [place] [id number] ALP [Catalytic activity/Vol] 93 U/L Normal 38-126 [facility] Comment on above: Performed By: #### C MP, DRUGS, GFR #### [place] [id number] ALT [Catalytic activity/Vol] 15 U/L Normal 10-49 [facility] Comment on above: Performed By: #### C MP, DRUGS, GFR #### [place] [id number] AST [Catalytic activity/Vol] 25 U/L Normal 8-34 [facility] Comment on above: Performed By: #### C MP, DRUGS, GFR #### [place] [id number] Bili Total 0.30 mg/dL Normal 0.20-1.20 [facility] Comment on above: Result Comment: Use of this assay is not recommended for patients undergoing treatment with eltrombopag due to the potential for falsely elevated results. Performed By: #### C MP, DRUGS, GFR #### [address] [address] Calcium [Mass/Vol] 8.9 mg/dL Normal 8.7-10.4 [facility] Comment on above: Performed By: #### C MP, DRUGS, GFR #### [address] [address] Chloride [Moles/Vol] 115 mmol/L High 98-110 [facility] Comment on above: Performed By: #### C MP, DRUGS, GFR #### [address] [address] CO2 [Moles/Vol] 19 mmol/L Low 22-32 [facility] Comment on above: Performed By: #### C MP, DRUGS, GFR #### [address] [address] Creatinine [Mass/Vol] 0.70 mg/dL Normal 0.50-1.20 [facility] Comment on above: Result Comment: Test ing performed on [employer] analyzer using enzymatic creatinine methodology. Performed By: #### C MP, DRUGS, GFR #### [address] [address] Electrolyte Balance 9.0 mEq/L Normal 4.0-15.0 [facility] Comment on above: Performed By: #### C MP, DRUGS, GFR #### [address] [address] Globulin 3.8 G/dL Normal 1.5-3.8 [facility] Comment on above: Performed By: #### C MP, DRUGS, GFR #### [address] [address] Glucose [Mass/Vol] 103 mg/dL Normal 70-110 [facility] Comment on above: Performed By: #### C MP, DRUGS, GFR #### [address] [address] Potassium [Moles/Vol] 3.8 mmol/L Normal 3.5-5.0 [facility] Comment on above: Performed By: #### C MP, DRUGS, GFR #### [place] [address] Sodium [Moles/Vol] 143 mmol/L Normal 136-145 [facility] Comment on above: Performed By: #### C MP, DRUGS, GFR #### [place] [address] Total Protein 7.2 G/dL Normal 5.7-8.2 [facility] Comment on above: Performed By: #### C MP, DRUGS, GFR #### [place] [address] DRUGSon 06-09-2024 Acetaminophen [Mass/Vol] 3.8 ug/mL Low 10.0-20.0 [facility] Comment on above: Performed By: #### C MP, DRUGS, GFR #### [place] [address] Ethanol Level <10.0 Normal [facility] Comment on above: Performed By: #### C MP, DRUGS, GFR #### [place] [address] Salicylate Lvl (ds) <3.0 Low 10.0-25.0 [facility] Comment on above: Performed By: #### C MP, DRUGS, GFR #### [place] [address] Serum Drugs screened: See Below Normal [facility] Comment on above: Result Comment: This drug screen is a presumptive screening only. No confirmation will be performed unless requested. Drugs included in the serum drug screen are: Threshold Ethanol 10.0 mg/dL Salicylate 2.0 mg/dl Acetaminophen 2.0 mcg/mL Testing has been performed FOR MEDICAL PURPOSES ONLY. Performed By: #### C MP, DRUGS, GFR #### [place] [address] DRUGUon 06-09-2024 Amphetamine (u) Negative Normal Negative [facility] Comment on above: Performed By: #### U A, DRUGU #### [place] [address] Barbiturate (u) Negative Normal Negative [facility] Comment on above: Performed By: #### U A, DRUGU #### [address] [address] Benzodiazepine (u) Positive Abnormal Negative [facility] Comment on above: Performed By: #### U A, DRUGU #### [address] [address] Cannabinoid (u) Negative Normal Negative [facility] Comment on above: Performed By: #### U A, DRUGU #### [place] [id number] Cocaine Ql (U) Negative Normal Negative [facility] Comment on above: Performed By: #### U A, DRUGU #### [place] [phone] Fentanyl (u) Negative Normal Negative [facility] Comment on above: Result Comment: Test ing has been performed FOR MEDICAL PURPOSES ONLY. Performed By: #### U A DRUGU #### [place] [address] Methadone Ql (U) Negative Normal Negative [facility] Comment on above: Performed By: #### U A DRUGU #### [place] [id number] Opiate (u) Negative Normal Negative [facility] Comment on above: Performed By: #### U A DRUGU #### [place] [phone] Oxycodone (u) Negative Normal Negative [facility] Comment on above: Result Comment: Test ing has been performed FOR MEDICAL PURPOSES ONLY. Performed By: #### U A DRUGU #### [place] [id number] PCP (u) Negative Normal Negative [facility] Comment on above: Performed By: #### U A DRUGU #### [place] [id number] Propoxyphene (u) Negative Normal Negative [facility] Comment on above: Performed By: #### U A DRUGU #### [address] [address] U pH Drug Scrn 6.0 Normal 5.0-8.0 [facility] Comment on above: Performed By: #### U A, DRUGU #### [address] [address] Urine Drugs screened: See Below Normal [facility] Comment on above: Result Comment: This drug screen is a presumptive screening only. No confirmation will be performed unless requested. Drugs screened include: Threshold Amphetamines/Methamphetamines 1,000 ng/mL Barbiturates 200 ng/mL Benzodiazepine metabolites 200 ng/mL Cannabinoids (THC metabolites) 50 ng/mL Benzoylecognine (Cocaine metab) 300 ng/mL Opiates 300 ng/mL Phencyclidine (PCP) 25 ng/mL Methadone 300 ng/mL Propoxyphene 300 ng/mL Fentanyl 1.0 ng/mL Oxycodone 100 ng/mL Testing has been performed FOR MEDICAL PURPOSES ONLY. Performed By: #### U A, DRUGU #### [address] [address] LABORATORYOrdered By: Jeffery Ortega on 06-09-2024 Amphetamines Screen Ql (U) Negative *NA* (06/09/24 12:08 PM) Invalid Interpretation Code Negative AH ADM SS Barbiturates Screen Ql (U) Negative *NA* (06/09/24 12:08 PM) Invalid Interpretation Code Negative AH ADM SS Benzodiazepines Ql (U) Positive *ABN* (06/09/24 12:08 PM) Invalid Interpretation Code Negative AH ADM SS Benzoylecgonine Screen Ql (U) Negative *NA* (06/09/24 12:08 PM) Invalid Interpretation Code Negative AH ADM SS Cannabinoids Screen Ql (U) Negative *NA* (06/09/24 12:08 PM) Invalid Interpretation Code Negative AH ADM SS fentaNYL Screen Ql (U) Negative 1 *NA* (06/09/24 12:08 PM) Invalid Interpretation Code Negative AH ADM SS Comment on above: Interpretive Data: T esting has been performed FOR MEDICAL PURPOSES ONLY. Methadone Screen Ql (U) Negative *NA* (06/09/24 12:08 PM) Invalid Interpretation Code Negative AH ADM SS Opiates Screen Ql (U) Negative *NA* (06/09/24 12:08 PM) Invalid Interpretation Code Negative AH ADM SS oxyCODONE Ql (U) Negative 2 *NA* (06/09/24 12:08 PM) Invalid Interpretation Code Negative AH ADM SS Comment on above: Interpretive Data: T esting has been performed FOR MEDICAL PURPOSES ONLY. pH (U) 6.0 [pH] Normal 5.0 - 8.0 AH Chemistry S Phencyclidine Ql (U) Negative *NA* (06/09/24 12:08 PM) Invalid Interpretation Code Negative AH ADM SS Propoxyphene Screen Ql (U) Negative *NA* (06/09/24 12:08 PM) Invalid Interpretation Code Negative AH ADM SS Urine Drugs screened: See Below 8 (06/09/24 12:08 PM) Normal AH Chemistry S Comment on above: Interpretive Data: T his drug screen is a presumptive screening only. No confirmation will be performed unless requested. Drugs screened include: Threshold Amphetamines/Methamphetamines 1,000 ng/mL Barbiturates 200 ng/mL Benzodiazepine metabolites 200 ng/mL Cannabinoids (THC metabolites) 50 ng/mL Benzoylecognine (Cocaine metab) 300 ng/mL Opiates 300 ng/mL Phencyclidine (PCP) 25 ng/mL Methadone 300 ng/mL Propoxyphene 300 ng/mL Fentanyl 1.0 ng/mL Oxycodone 100 ng/mL Testing has been performed FOR MEDICAL PURPOSES ONLY. LABORATORYOrdered By: Nena David on 06-09-2024 Appearance (U) Clear (06/09/24 12:08 PM) Normal Clear AH Auto Urine SS Bilirubin Ql (U) Negative (06/09/24 12:08 PM) Normal Neg-Trace AH Auto Urine SS Color (U) Yellow (06/09/24 12:08 PM) Normal AH Auto Urine SS Glucose Test strip (U) [Mass/Vol] Negative Normal Negative AH Auto Urine SS Hemoglobin Auto test strip (U) [Mass/Vol] Trace (06/09/24 12:08 PM) Normal Neg-Trace AH Auto Urine SS Ketones Ql (U) Trace mg/dL Normal Neg-Trace AH Auto Urine SS UA Leuk Est Trace *NA* (06/09/24 12:08 PM) Invalid Interpretation Code Negative AH Auto Urine SS UA Nitrite Negative (06/09/24 12:08 PM) Normal Negative AH Auto Urine SS UA pH 6.5 (06/09/24 12:08 PM) Normal 5.0 - 8.0 AH Auto Urine SS UA Protein Negative Normal Negative AH Auto Urine SS UA Spec Grav 1.010 (06/09/24 12:08 PM) Normal 1.006-1.02 9 Auto Urine SS UA Specimen Type Clean Catch (06/09/24 12:08 PM) Normal Auto Urine SS UA Urobilinogen 0.2 E.U./dL Normal 0.2-1.0 Auto Urine SS LABORATORYOrdered By: Adriana raza Angela on 06-09-2024 Acetaminophen [Mass/Vol] 3.8 ug/mL Low 10. 0 - 20.0 mcg/mL ADM SS Ethanol [Mass/Vol] mg/dL Invalid Interpretation Code ADM SS Salicylates [Mass/Vol] mg/dL Low 10.0 - 25.0 mg/dL ADM SS Serum Drugs screened: See Below 7 (06/09/24 10:12 AM) Normal Chemistry S Comment on above: Interpretive Data: T his drug screen is a presumptive screening only. No confirmation will be performed unless requested. Drugs included in the serum drug screen are: Threshold Ethanol 10.0 mg/dL Salicylate 2.0 mg/dl Acetaminophen 2.0 mcg/mL Testing has been performed FOR MEDICAL PURPOSES ONLY. Urea nitrogen [Mass/Vol] mg/dL Low 8.0 - 22.0 mg/dL Chemistry S Urea nitrogen/Creatinine [Mass ratio] Unable to Calculate Invalid Interpretation Code 10.0 - 22.0 Chemistry S Comment on above: Result Comment: Unab le to calculate this test result accurately. Results used to calculate this test are outside the reportable range. LABORATORYOrdered By: SYSTEM SYSTEM on 06-09-2024 Albumin BCP dye [Mass/Vol] 3.4 G/dL Normal 3.2 - 4.8 G/dL ADM SS Albumin/Globulin [Mass ratio] 0.9 {ratio} Normal 0.9 - 1.6 ratio ADM SS ALP [Catalytic activity/Vol] 93 U/L Normal 38 - 126 U/L ADM SS ALT No additional P-5'-P [Catalytic activity/Vol] 15 U/L Normal 10 - 49 U/L ADM SS AST [Catalytic activity/Vol] 25 U/L Normal 8 - 34 U/L ADM SS Bilirubin [Mass/Vol] 0.30 mg/dL Normal 0.20 - 1.20 mg/dL ADM SS Comment on above: Interpretive Data: U se of this assay is not recommended for patients undergoing treatment with eltrombopag due to the potential for falsely elevated results. Calcium [Mass/Vol] 8.9 mg/dL Normal 8.7 - 10. 4 mg/dL ADM SS Chloride [Moles/Vol] 115 mmol/L High 98 - 11 0 mEq/L AH ADM SS CO2 [Moles/Vol] 19 mmol/L Low 22 - 32 mEq/L AH ADM SS Creatinine [Mass/Vol] 0.70 mg/dL Normal 0.50 - 1.20 mg/dL ADM SS Comment on above: Interpretive Data: T esting performed on [employer] analyzer using enzymatic creatinine methodology. Electrolyte Balance 9.0 mEq/L Normal 4.0 - 15 .0 mEq/L ADM SS Estimated Glomerular Filtration Rate 111 ml/min/1.73sqm Invalid Interpretation Code Chemistry S Comment on above: Interpretive Data: Stages of Chronic Kidney Disease (CKD) Stage Description eGFR(ml/min/1.73 sq.m.) CKD 1 Normal kidney function or >=90 normal kindney function with possible kidney damage (ex. Proteinuria) CKD 2 Kidney damage with mild loss 60-89 of kidney function CKD 3a Mild to moderate loss of kidney 45-59 function CKD 3b Moderate to severe loss of 30-44 of kindey function CKD 4 Severe loss of kidney function 15-29 CKD 5 Kidney failure <15 Note: (go live 2024) the eGFR calculation was updated to the 2020 CKD-EPI creatinine equation without a race factor to calculate the eGFR results. Globulin 3.8 G/dL Normal 1.5 - 3.8 G/dL ADM SS Glucose [Mass/Vol] 103 mg/dL Normal 70 - 110 mg/dL ADM SS Potassium [Moles/Vol] 3.8 mmol/L Normal 3.5 - 5.0 mEq/L AH ADM SS Protein [Mass/Vol] 7.2 G/dL Normal 5.7 - 8.2 G/dL ADM SS Sodium [Moles/Vol] 143 mmol/L Normal 136 - 145 mEq/L ADM SS Lactic Acidon 06-09-2024 Lactate [Moles/Vol] 1.1 mmol/L Normal 0.4-1.9 [facility] Comment on above: Performed By: #### L 7400.3000, L506.1000, L503.0105, L500.4050, L501.9520, L801.1541, L801.1543, L3380.1400, L100.0100, L3310.0000, L506.0250 #### [facility] [address] [place], [address] Lactic acid measurementOrder ed By: Al Argueta on 06-09-2024 Lactate [Moles/Vol] 1.1 mmol/L 0.4-2.0 [facility] UAon 06-09-2024 Color (U) Yellow Normal [facility] Comment on above: Performed By: #### U Ry DRUGU #### [address] [address] Glucose (U) [Mass/Vol] Negative Normal Negative [facility] Comment on above: Performed By: #### U Ry DRUGU #### [place] [address] Ketones Ql (U) Trace Normal Neg-Trace [facility] Comment on above: Performed By: #### U A DRUGU #### [place] [id number] UA Appear Clear Normal Clear [facility] Comment on above: Performed By: #### U A DRUGU #### [address] [address] UA Blood Trace Normal Neg-Trace [facility] Comment on above: Performed By: #### U A DRUGU #### [address] [address] UA Leuk Est Trace Normal Negative [facility] Comment on above: Performed By: #### U A DRUGU #### [place] [id number] UA Nitrite Negative Normal Negative [facility] Comment on above: Performed By: #### U A DRUGU #### [address] [address] UA pH 6.5 Normal 5.0 - 8.0 [facility] Comment on above: Performed By: #### U A DRUGU #### [facility] [address] [place] [address] UA Protein Negative Normal Negative [facility] Comment on above: Performed By: #### U A, DRUGU #### [facility] [address] [place] [address] UA Spec Grav 1.010 Normal 1.006-1.02 9 [facility] Comment on above: Performed By: #### U A, DRUGU #### [facility] [address] [place] [address] UA Specimen Type Clean Catch Normal [facility] Comment on above: Performed By: #### U A, DRUGU #### [facility] [address] [place] [address] UA Urobilinogen 0.2 E.U./dL Normal 0.2-1.0 [facility] Comment on above: Performed By: #### U A, DRUGU #### [place] [address] Urobilinogen (U) [Mass/Vol] Negative Normal Neg-Trace [facility] Comment on above: Performed By: #### U A, DRUGU #### [address] [address] Absolute neutrophil countOrd ered By: Al Argueta on 06-08-2024 Neutrophils (Bld) [#/Vol] 11.2 10*3/uL High 2.0-7.7 [facility] Albumin to globulin ratioOrd ered By: Al Argueta on 06-08-2024 Albumin/Globulin [Mass ratio] 0.8 {ratio} Low 0.9-2.4 [facility] Basophil percentageOrdered B y: Al Argueta on 06-08-2024 Basophils/100 WBC (Bld) 0.1 % 0-1 [facility] Beta HCG ( test) Ql Ordered By: Al Argueta on 06-08-2024 Serum Test, Qualitative Negative [facility] Bilirubin Test strip Ql (U)O rdered By: Al Argueta on 06-08-2024 Bilirubin Ql (U) Negative Negative [facility] Bilirubin, totalOrdered By: Al Argueta on 06-08-2024 Bilirubin [Mass/Vol] 0.20 mg/dL 0.20-1.00 [facility] Comment on above: For patients on eltr ombopag therapy, use of Dimension [place] TBIL is not recommended. Blood urea nitrogen (BUN)/cr eatinine ratioOrdered By: Al Argueta on 06-08-2024 Urea nitrogen/Creatinine [Mass ratio] 5.9 mg/mg Low 10-20 [facility] Brain/Head without Contrasto n 06-08-2024 Brain/Head without Contrast [facility] [address] [place] [address] Brain/Head without Contrast MR#: [id number] Acct: [id number] Name: MARIA DEL ROSARIO LAWS Rep #: [id number] : 1980 F 43 From: Paolo Davies PCP: Dr. Daniel Tan MD Status: PRE ER Study: Brain/Head without Contrast Date of Exam: 05/21 01/12 Exam# [id number] Ordering Dr: Al Argueta DO EXAM: CT brain without IV contrast CLINICAL HISTORY: Altered mental status COMPARISON: 01/07/2024 TECHNIQUE: Multiple contiguous axial images through the brain were obtained without the administration of intravenous contrast. Two-dimensional coronal and sagittal reformatted images were reconstructed. Low-dose imaging technique was utilized. FINDINGS: No evidence of acute intracranial hemorrhage, midline shift or mass effect. No definite CT evidence of acute territorial cortical infarction. No hydrocephalus. Cerebral volume is age-appropriate. No depressed calvarial fracture. Paranasal sinuses and mastoid air cells are clear. CT/Brain/Head without Contrast IMPRESSION: No acute intracranial abnormality. Reading Location: [facility] CC: Dr. Daniel Tan MD; Dr. Al Argueta DO Archives Director: Signed Normal [facility] CBC W/Diff, Automatedon 05-21 Absolute Lymph 2.69 X10 3/uL Normal 0.83-4.51 [facility] Comment on above: Performed By: #### L 7400.3000, L506.1000, L503.0105, L500.4050, L501.9520, L801.1541, L801.1543, L3380.1400, L100.0100, L3310.0000, L506.0250 #### [facility] [address] [place], [address] Absolute Neut 11.2 X10 3/uL High 2.0-7.7 [facility] Comment on above: Performed By: #### L 7400.3000, L506.1000, L503.0105, L500.4050, L501.9520, L801.1541, L801.1543, L3380.1400, L100.0100, L3310.0000, L506.0250 #### [facility] [address] [place], [address] Basophils/100 WBC (Bld) 0.1 % Normal 0-1 [facility] Comment on above: Performed By: #### L 7400.3000, L506.1000, L503.0105, L500.4050, L501.9520, L801.1541, L801.1543, L3380.1400, L100.0100, L3310.0000, L506.0250 #### [facility] [address] [place], [address] Eosinophils/100 WBC (Bld) 0.1 % Normal 0-5 [facility] Comment on above: Performed By: #### L 7400.3000, L506.1000, L503.0105, L500.4050, L501.9520, L801.1541, L801.1543, L3380.1400, L100.0100, L3310.0000, L506.0250 #### [facility] [address] [place], [address] Erythrocyte distribution width (RBC) [Ratio] 13.5 % Normal 11.6-14.6 [facility] Comment on above: Performed By: #### L 7400.3000, L506.1000, L503.0105, L500.4050, L501.9520, L801.1541, L801.1543, L3380.1400, L100.0100, L3310.0000, L506.0250 #### [facility] [address] [place], [place], [phone] ([phone]) Hematocrit (Bld) [Volume fraction] 45.5 % Normal 37-47 [facility] Comment on above: Performed By: #### L 7400.3000, L506.1000, L503.0105, L500.4050, L501.9520, L801.1541, L801.1543, L3380.1400, L100.0100, L3310.0000, L506.0250 #### [facility] [address] [place], [place], [phone] ([phone]) Hemoglobin (Bld) [Mass/Vol] 14.2 g/dL Normal 12.0-15.0 [facility] Comment on above: Performed By: #### L 7400.3000, L506.1000, L503.0105, L500.4050, L501.9520, L801.1541, L801.1543, L3380.1400, L100.0100, L3310.0000, L506.0250 #### [facility] [address] [place], [place], [phone] ([phone]) IG% 0.400 Normal 0.0-0.9 [facility] Comment on above: Result Comment: IG% - Immature Granulocytes (promyelocytes, myelocytes and metamyelocytes) > 1% indicates that a LEFT SHIFT is Present. Performed By: #### L 7400.3000, L506.1000, L503.0105, L500.4050, L501.9520, L801.1541, L801.1543, L3380.1400, L100.0100, L3310.0000, L506.0250 #### [facility] [address] [place], [address] Lymphocytes/100 WBC (Bld) 17.8 % Low 19-41 [facility] Comment on above: Performed By: #### L 7400.3000, L506.1000, L503.0105, L500.4050, L501.9520, L801.1541, L801.1543, L3380.1400, L100.0100, L3310.0000, L506.0250 #### [facility] [address] [place], [address] MCH (RBC) [Entitic mass] 28.2 pg Normal 27.0-32.0 [facility] Comment on above: Performed By: #### L 7400.3000, L506.1000, L503.0105, L500.4050, L501.9520, L801.1541, L801.1543, L3380.1400, L100.0100, L3310.0000, L506.0250 #### [facility] [address] [place], [address] MCHC (RBC) [Mass/Vol] 31.2 g/dL Low 32-36 [facility] Comment on above: Performed By: #### L 7400.3000, L506.1000, L503.0105, L500.4050, L501.9520, L801.1541, L801.1543, L3380.1400, L100.0100, L3310.0000, L506.0250 #### [facility] [address] [place], [address] MCV (RBC) [Entitic vol] 90.5 fL Normal 81-99 [facility] Comment on above: Performed By: #### L 7400.3000, L506.1000, L503.0105, L500.4050, L501.9520, L801.1541, L801.1543, L3380.1400, L100.0100, L3310.0000, L506.0250 #### [facility] [address] [place], [address] (414) Monocytes/100 WBC (Bld) 8.0 % Normal 0-10 [facility] Comment on above: Performed By: #### L 7400.3000, L506.1000, L503.0105, L500.4050, L501.9520, L801.1541, L801.1543, L3380.1400, L100.0100, L3310.0000, L506.0250 #### [facility] [address] [place], [address] (532) Neutrophils/100 WBC (Bld) 73.6 % High 47-70 [facility] Comment on above: Performed By: #### L 7400.3000, L506.1000, L503.0105, L500.4050, L501.9520, L801.1541, L801.1543, L3380.1400, L100.0100, L3310.0000, L506.0250 #### [facility] [address] [place], [address] ([phone]) Nucleated RBC (Bld) [#/Vol] 0 10*3/uL Normal 0-5 [facility] Comment on above: Performed By: #### L 7400.3000, L506.1000, L503.0105, L500.4050, L501.9520, L801.1541, L801.1543, L3380.1400, L100.0100, L3310.0000, L506.0250 #### [facility] [address] [place], [address] [phone] Platelet mean volume (Bld) [Entitic vol] 10.7 fL Normal 6.2-12.0 [facility] Comment on above: Performed By: #### L 7400.3000, L506.1000, L503.0105, L500.4050, L501.9520, L801.1541, L801.1543, L3380.1400, L100.0100, L3310.0000, L506.0250 #### [facility] [address] [place], [address] Platelets (Bld) [#/Vol] 292 10*3/uL Normal 150-450 [facility] Comment on above: Performed By: #### L 7400.3000, L506.1000, L503.0105, L500.4050, L501.9520, L801.1541, L801.1543, L3380.1400, L100.0100, L3310.0000, L506.0250 #### [facility] [address] [place], [address] RBC (Bld) [#/Vol] 5.03 10*6/uL Normal 4.2-5.4 [facility] Comment on above: Performed By: #### L 7400.3000, L506.1000, L503.0105, L500.4050, L501.9520, L801.1541, L801.1543, L3380.1400, L100.0100, L3310.0000, L506.0250 #### [facility] [address] [place], [address] RDW SD 45.3 fl High 35.1-43.9 [facility] Comment on above: Performed By: #### L 7400.3000, L506.1000, L503.0105, L500.4050, L501.9520, L801.1541, L801.1543, L3380.1400, L100.0100, L3310.0000, L506.0250 #### [facility] [address] [place], [address] WBC (Bld) [#/Vol] 15.2 10*3/uL High 4.4-11.0 [facility] Comment on above: Performed By: #### L 7400.3000, L506.1000, L503.0105, L500.4050, L501.9520, L801.1541, L801.1543, L3380.1400, L100.0100, L3310.0000, L506.0250 #### [facility] [address] [place], [place], [id number] Carbon dioxide measurementOr dered By: Al Argueta on 06-08-2024 CO2 [Moles/Vol] 15.0 mmol/L Low 21.0-32.0 [facility] Chloride measurementOrdered By: Al Argueta on 06-08-2024 Chloride [Moles/Vol] 112 mmol/L High 98-107 [facility] Comprehensive Metabolic Prof ilon 06-08-2024 Albumin [Mass/Vol] 3.3 g/dL Normal 3.2-5.0 [facility] Comment on above: Order Comment: 'TROP ' Serial specimen #1, #2 or #3: 1 Performed By: #### L 7400.3000, L506.1000, L503.0105, L500.4050, L501.9520, L801.1541, L801.1543, L3380.1400, L100.0100, L3310.0000, L506.0250 #### [facility] [address] [place], [place], [id number] Albumin/Globulin [Mass ratio] 0.8 {ratio} Low 0.9-2.4 [facility] Comment on above: Order Comment: 'TROP ' Serial specimen #1, #2 or #3: 1 Performed By: #### L 7400.3000, L506.1000, L503.0105, L500.4050, L501.9520, L801.1541, L801.1543, L3380.1400, L100.0100, L3310.0000, L506.0250 #### [facility] [address] [place], [place], [phone] ALK P 94 U/L Normal 45-117 [facility] Comment on above: Order Comment: 'TROP ' Serial specimen #1, #2 or #3: 1 Performed By: #### L 7400.3000, L506.1000, L503.0105, L500.4050, L501.9520, L801.1541, L801.1543, L3380.1400, L100.0100, L3310.0000, L506.0250 #### [facility] [address] [place], [address] ALT [Catalytic activity/Vol] 20 U/L Normal 13-56 [facility] Comment on above: Order Comment: 'TROP ' Serial specimen #1, #2 or #3: 1 Performed By: #### L 7400.3000, L506.1000, L503.0105, L500.4050, L501.9520, L801.1541, L801.1543, L3380.1400, L100.0100, L3310.0000, L506.0250 #### [facility] [address] [place], [place], [phone] AST [Catalytic activity/Vol] 11 U/L Low 15-37 [facility] Comment on above: Order Comment: 'TROP ' Serial specimen #1, #2 or #3: 1 Performed By: #### L 7400.3000, L506.1000, L503.0105, L500.4050, L501.9520, L801.1541, L801.1543, L3380.1400, L100.0100, L3310.0000, L506.0250 #### [facility] [address] [place], [place], [phone] Bilirubin [Mass/Vol] 0.20 mg/dL Normal 0.20-1.00 [facility] Comment on above: Order Comment: 'TROP ' Serial specimen #1, #2 or #3: 1 Result Comment: For patients on eltrombopag therapy, use of Dimension [place] TBIL is not recommended. Performed By: #### L 7400.3000, L506.1000, L503.0105, L500.4050, L501.9520, L801.1541, L801.1543, L3380.1400, L100.0100, L3310.0000, L506.0250 #### [facility] [address] [place], [address] BUN/CRE 5.9 RATIO Low 10-20 [facility] Comment on above: Order Comment: 'TROP ' Serial specimen #1, #2 or #3: 1 Performed By: #### L 7400.3000, L506.1000, L503.0105, L500.4050, L501.9520, L801.1541, L801.1543, L3380.1400, L100.0100, L3310.0000, L506.0250 #### [facility] [address] [place], [place], [phone] CA,Total 8.9 mg/dL Normal 8.5-10.1 [facility] Comment on above: Order Comment: 'TROP ' Serial specimen #1, #2 or #3: 1 Performed By: #### L 7400.3000, L506.1000, L503.0105, L500.4050, L501.9520, L801.1541, L801.1543, L3380.1400, L100.0100, L3310.0000, L506.0250 #### [facility] [address] [place], [address] Chloride [Moles/Vol] 112 mmol/L High 98-107 [facility] Comment on above: Order Comment: 'TROP ' Serial specimen #1, #2 or #3: 1 Performed By: #### L 7400.3000, L506.1000, L503.0105, L500.4050, L501.9520, L801.1541, L801.1543, L3380.1400, L100.0100, L3310.0000, L506.0250 #### [facility] [address] [place], [place], [phone] CO2 [Moles/Vol] 15.0 mmol/L Low 21.0-32.0 [facility] Comment on above: Order Comment: 'TROP ' Serial specimen #1, #2 or #3: 1 Performed By: #### L 7400.3000, L506.1000, L503.0105, L500.4050, L501.9520, L801.1541, L801.1543, L3380.1400, L100.0100, L3310.0000, L506.0250 #### [facility] [address] [place], [place], [phone] Creatinine [Mass/Vol] 1.19 mg/dL High 0.55-1.02 [facility] Comment on above: Order Comment: 'TROP ' Serial specimen #1, #2 or #3: 1 Result Comment: The validity of the calculated GFR GFRAA in patients over 70 years has not been determined. Clinical correlation is essential. Performed By: #### L 7400.3000, L506.1000, L503.0105, L500.4050, L501.9520, L801.1541, L801.1543, L3380.1400, L100.0100, L3310.0000, L506.0250 #### [facility] [address] [place], [address] ECRCL 86.78 ml/min Normal [facility] Comment on above: Order Comment: 'TROP ' Serial specimen #1, #2 or #3: 1 Performed By: #### L 7400.3000, L506.1000, L503.0105, L500.4050, L501.9520, L801.1541, L801.1543, L3380.1400, L100.0100, L3310.0000, L506.0250 #### [facility] [address] [place], [address] EST GFR - AA 64 mL/min Normal >60 [facility] Comment on above: Order Comment: 'TROP ' Serial specimen #1, #2 or #3: 1 Result Comment: Afri can Taiwanese GFR Calc Performed By: #### L 7400.3000, L506.1000, L503.0105, L500.4050, L501.9520, L801.1541, L801.1543, L3380.1400, L100.0100, L3310.0000, L506.0250 #### [facility] [address] [place], [address] GAP 12 Normal 5-15 [facility] Comment on above: Order Comment: 'TROP ' Serial specimen #1, #2 or #3: 1 Performed By: #### L 7400.3000, L506.1000, L503.0105, L500.4050, L501.9520, L801.1541, L801.1543, L3380.1400, L100.0100, L3310.0000, L506.0250 #### [facility] Laboratory [address] [place], [place], [phone] (889) GFR/1.73 sq M.predicted among non-blacks MDRD (S/P/Bld) [Vol rate/Area] 53 mL/min/{1.73_m2} Low >60 [facility] Comment on above: Order Comment: 'TROP ' Serial specimen #1, #2 or #3: 1 Result Comment: Non- GFR Calc Performed By: #### L 7400.3000, L506.1000, L503.0105, L500.4050, L501.9520, L801.1541, L801.1543, L3380.1400, L100.0100, L3310.0000, L506.0250 #### [facility] Laboratory [address] [place], [address] Globulin (S) [Mass/Vol] 4.2 g/dL Normal 2.2-4.2 [facility] Comment on above: Order Comment: 'TROP ' Serial specimen #1, #2 or #3: 1 Performed By: #### L 7400.3000, L506.1000, L503.0105, L500.4050, L501.9520, L801.1541, L801.1543, L3380.1400, L100.0100, L3310.0000, L506.0250 #### [facility] Laboratory [address] [place], [address] Glucose [Mass/Vol] 161 mg/dL High 74-106 [facility] Comment on above: Order Comment: 'TROP ' Serial specimen #1, #2 or #3: 1 Result Comment: Fast ing Glucose result greater than or equal to 126 mg/dL suggests DIABETES MELLITUS per A.D.A. criteria. Performed By: #### L 7400.3000, L506.1000, L503.0105, L500.4050, L501.9520, L801.1541, L801.1543, L3380.1400, L100.0100, L3310.0000, L506.0250 #### [facility] Laboratory [address] [place], [address] Potassium [Moles/Vol] 3.7 mmol/L Normal 3.5-5.1 [facility] Comment on above: Order Comment: 'TROP ' Serial specimen #1, #2 or #3: 1 Performed By: #### L 7400.3000, L506.1000, L503.0105, L500.4050, L501.9520, L801.1541, L801.1543, L3380.1400, L100.0100, L3310.0000, L506.0250 #### [facility] Laboratory [address] [place], [address] Sodium [Moles/Vol] 140 mmol/L Normal 136-145 [facility] Comment on above: Order Comment: 'TROP ' Serial specimen #1, #2 or #3: 1 Performed By: #### L 7400.3000, L506.1000, L503.0105, L500.4050, L501.9520, L801.1541, L801.1543, L3380.1400, L100.0100, L3310.0000, L506.0250 #### [facility] Laboratory [address] [place], [address] T PROT 7.5 g/dL Normal 6.4-8.2 [facility] Comment on above: Order Comment: 'TROP ' Serial specimen #1, #2 or #3: 1 Performed By: #### L 7400.3000, L506.1000, L503.0105, L500.4050, L501.9520, L801.1541, L801.1543, L3380.1400, L100.0100, L3310.0000, L506.0250 #### [facility] Laboratory [address] [place], [address] Urea nitrogen [Mass/Vol] 7 mg/dL Normal 7-18 [facility] Comment on above: Order Comment: 'TROP ' Serial specimen #1, #2 or #3: 1 Performed By: #### L 7400.3000, L506.1000, L503.0105, L500.4050, L501.9520, L801.1541, L801.1543, L3380.1400, L100.0100, L3310.0000, L506.0250 #### [facility] Laboratory [address] [place], [address] Direct serum free thyroxine (FT4) measurementOrdered By: Al Argueta on 06-08-2024 Free T4 [Mass/Vol] 0.89 ng/dL 0.76-1.46 [facility] Emergency Department Summary on 06-08-2024 Emergency Department Summary [facility] Medical Records Department [address] [place], [place] [address] [address] Emergency Department Summary 06/08/24 MR#: [id number] Acct: [id number] Name: MARIA DEL ROSARIO LAWS Rep #: [id number] : 1980 43 From: Al Argueta DO PCP: Dr. Daniel Tan MD Status:REG ER Location: ED HPI History of Present Illness Chief Complaint: Seizure Narrative Narrative: Patient is a 43-year-old female past medical history of PCOS, GERD, seizures on Keppra, mental delay, asthma who presents to the emergency department via EMS with a chief complaint of seizure. According to EMS she had 3 seizures in the last 45 minutes without returning to her baseline. They gave 5 mg of IM Versed prehospital. Patient states that she has not been feeling well for the past few days and has been under a lot of stress as well. PFSH [facility] Medical History Edema Abnormal stress test Acute bilateral otitis media Acute bronchitis Seizure PND (paroxysmal nocturnal dyspnea) Dyspnea on exertion Schizophrenia Chest pain PCOS (polycystic ovarian syndrome) Myalgia and myositis GERD (gastroesophageal reflux disease) Conversion disorder Chronic factitious illness with physical symptoms Adjustment disorder with depressed mood Generalized seizure disorder History of mental retardation History of asthma Home Medications ???Medication ???Instructions ???Recorded ???Last Taken ???Type cetirizine 10 mg tablet 10 mg PO DAILY 02/11/19 Unknown Hi story iloperidone 4 mg tablet 4 mg PO QHS BIPOLAR 02/11/1906/02 History multivitamin 1 tab PO DAILY 02/11/19 06/03/19 H istory topiramate 200 mg tablet (Topamax) 400 mg PO BID SEIZURES 02/11/19 06/03/19 History citalopram 20 mg tablet 20 mg PO DAILY 02/23/19 06/03/19 H istory albuterol sulfate 90 mcg/actuation 2 puff inhalation Q4H PRN PRN 05/29/19 Rx aerosol inhaler Wheezing ##1 benztropine 1 mg tablet 1 mg PO .COMPLEX 01/30/22 Unknown History montelukast 10 mg tablet 10 mg PO DAILY 01/30/22 Unknown Hi story zonisamide 100 mg capsule 200 mg PO BID 01/30/22 Unknown His tory benzonatate 100 mg capsule 200 mg (2 x 100 mg) PO TID PRN Unknown Rx cough #30 caps cyclobenzaprine 10 mg tablet 10 mg PO TID 11/12/23 Unknown Hist ory fluticasone 250 mcg-salmeterol 50 1 ea inhalation BID 11/12/23 Unkn own History mcg/dose blistr powdr for inhalation levetiracetam 750 mg tablet 1,500 mg PO BID 11/12/23 Unknown H istory (Keppra) metoprolol succinate 25 mg 25 mg PO QDAY 11/12/23 Unknown His tory tablet,extended release 24 hr lacosamide 150 mg tablet (Vimpat) 300 mg PO BID 06/08/24 Unknown Hi story Allergy/AdvReac Type Severity Reaction Status Date / Time chlorpheniramine (From Vicks Allergy Intermediate seizure Verified 06/08/24 19:48 DayQuil) dextromethorphan (From [facility]icks Allergy Intermediate seizure Verified 06/08/24 19:48 DayQuil) phenylpropanolamine (From Allergy Intermediate seizure Verified 06/08/24 19:48 [facility] DayQuil) pseudoephedrine (From Vicks Allergy Intermediate seizure Verified 06/08/24 19:48 DayQuil) azithromycin (From Zithromax Allergy Other Verified 06/08/24 19:48 Z-Johnny) cephalexin Allergy Unknown Verified 06/08/24 19:48 doxycycline Allergy Nausea Verified 06/08/24 19:48 guaifenesin (From Mucinex) Allergy Other Verified 06/08/24 19:48 latex Allergy Rash Verified 06/08/24 19:48 oseltamivir (From Tamiflu) Allergy Unknown Verified 06/08/24 19:48 risperidone (From Risperdal) Allergy Other Verified 06/08/24 19:48 strawberry Allergy Hives Verified 06/08/24 19:48 valdecoxib (From Bextra) Allergy Rash Verified 06/08/24 19:48 Family History Mother Asthma Father Heart disease Seizures Brother Seizures Sister Myocardial infarction Heart disease Seizures Grandmother Diabetes CVA (cerebral vascular accident) Social History Smoking Status: Never smoker alcohol intake: never substance use type: does not use caffeine: Yes Type: carbonated beverages ROS ROS ED ROS Narrative Constitutional: Denies headache, fever, chills, lightheadedness, dizziness Eyes: Denies change in vision double vision blurry vision Cardiovascular: Denies chest pain or palpitations Respiratory: Denies coughing wheezing shortness of breath Abdomen: Denies abdominal pain nausea vomit diarrhea : Denies any urinary symptoms Neurological: Denies numbness, weakness, tingling complains of seizures noted above Musculoskeletal: Denies back pain Skin: Denies rashes or lesions EXAM Physical Exam Narrative Exam Narrative: General: Patient lying in bed rest comfortably did not appear to b (more content not included)... Normal [facility] Eosinophil percentageOrdered By: Al Argueta on 06-08-2024 Eosinophils/100 WBC (Bld) 0.1 % 0-5 [facility] Epithelial cells.squamous LM Ql (Urine sed)Ordered By: Al Argueta on 06-08-2024 Epithelial cells.squamous LM.HPF (Urine sed) [#/Area] 0 /[HPF] 5-10 [facility] Erythrocyte distribution wid th (RBC) [Ratio]Ordered By: Al Argueta on 06-08-2024 Erythrocyte distribution width (RBC) [Entitic vol] 45.3 fL High 35.1-43.9 [facility] Erythrocyte distribution wid th ratioOrdered By: Al Argueta on 06-08-2024 Erythrocyte distribution width (RBC) [Ratio] 13.5 % 11.6-14.6 [facility] Estimated glomerular filtrat ion rate (GFR) AmericanOrdered By: Al Argueta on 06-08-2024 Estimated GFR (MDRD) Amer 64 mL/min >60 [facility] Comment on above: GFR Calc Estimation of creatinine lincoln aranceOrdered By: Al Argueta on 06-08-2024 Estimated Creatinine Clearance Calc 86.78 ml/min [facility] Free T3on 06-08-2024 Free T3 [Mass/Vol] 2.7 pg/mL Normal 2.18-3.98 [facility] Comment on above: Order Comment: 'TROP ' Serial specimen #1, #2 or #3: 1 Performed By: #### L 7400.3000, L506.1000, L503.0105, L500.4050, L501.9520, L801.1541, L801.1543, L3380.1400, L100.0100, L3310.0000, L506.0250 #### [facility] [place] [address] [address] [place], [address] Free O8Lxjstea By: Al desai on 06-08-2024 Free Triiodothyronine (T3) pg/dL 2.7 pg/mL 2.18-3.98 [facility] Glomerular filtration rate ( GFR) estimationOrdered By: Al Argueta on 06-08-2024 Estimated GFR (MDRD) Non-Af Amer 53 mL/min Low >60 [facility] Comment on above: Non- GFR Calc Glucose Ql (U)Ordered By: Benji Argueta on 06-08-2024 Urine Glucose (UA) Normal mg/dl Normal [facility] Glucose measurementOrdered B y: Al Argueta on 06-08-2024 Glucose [Mass/Vol] 161 mg/dL High 74-106 [facility] Comment on above: Fasting Glucose resu lt greater than or equal to 126 mg/dL suggests DIABETES MELLITUS per A.D.A. criteria. Hematocrit Auto (Bld) [Volum e fraction]Ordered By: Al Argueta on 06-08-2024 Hematocrit (Bld) [Volume fraction] 45.5 % 37-47 [facility] Hemoglobin measurementOrdere d By: Al Argueta on 06-08-2024 Hemoglobin (Bld) [Mass/Vol] 14.2 g/dL 12.0-15.0 [facility] Immature granulocytes/100 WB C Auto (Bld)Ordered By: Al Argueta on 06-08-2024 Immature granulocytes/100 WBC (Bld) 0.400 % 0.0-0.9 [facility] Comment on above: IG% - Immature Granu locytes (promyelocytes, myelocytes and metamyelocytes) > 1% indicates that a LEFT SHIFT is Present. Influenza virus A and B and SARS-CoV-2 (COVID-19) and Respiratory syncytial virus RNAOrdered By: Al Argueta on 06-08-2024 SARS-CoV-2 (COVID-19) RNA MINDI+probe Ql (Unsp spec) [facility] Ketones Test strip Ql (U)Ord ered By: Al Argueta on 06-08-2024 Ketones Ql (U) 5 mg/dl High Negative [facility] L501.4020on 06-08-2024 TROPONIN-I HS < 3 Low 3.0-54.0 [facility] Comment on above: Order Comment: 'TROP ' Serial specimen #1, #2 or #3: 1 Result Comment: Plea se Note: New Test Units and Gender Specific Reference Ranges. For more information see Policy Stat Procedure [place] High Sensitivity Troponin (TNIH) and attachments. Performed By: #### L 7400.3000, L506.1000, L503.0105, L500.4050, L501.9520, L801.1541, L801.1543, L3380.1400, L100.0100, L3310.0000, L506.0250 #### [facility] Laboratory [address] [place], [place], [id number] Laboratory - Chemistry and C hemistry - challengeOrdered By: Al Argueta on 06-08-2024 AST [Catalytic activity/Vol] 11 U/L Low 15-37 [facility] Lactic Acidon 06-08-2024 Lactate [Moles/Vol] 7.6 mmol/L Invalid Interpretation Code 0.4-1.9 [facility] Comment on above: Order Comment: Y Result Comment: Crit ical Result(s) Called at: 20:48:17 06/08/2024 by: KENYA FALCON TO AL MCCLELLAND. Results read back by same. Performed By: #### L 7400.3000, L506.1000, L503.0105, L500.4050, L501.9520, L801.1541, L801.1543, L3380.1400, L100.0100, L3310.0000, L506.0250 #### [facility] Laboratory [address] [place], [address] Lipaseon 06-08-2024 Lipase [Catalytic activity/Vol] 16 U/L Low 73-393 [facility] Comment on above: Order Comment: 'TROP ' Serial specimen #1, #2 or #3: 1 Performed By: #### L 7400.3000, L506.1000, L503.0105, L500.4050, L501.9520, L801.1541, L801.1543, L3380.1400, L100.0100, L3310.0000, L506.0250 #### [facility] Laboratory [address] [place], [place], [id number] Lipase measurementOrdered By : Al Argueta on 06-08-2024 Lipase [Catalytic activity/Vol] 16 U/L Low 73-393 [facility] Lymphocytes Auto (Unsp spec) [#/Vol]Ordered By: Al Argueta on 06-08-2024 Lymphocytes (Bld) [#/Vol] 2.69 10*3/uL 0.83-4.51 [facility] Lymphocytes/100 WBC Auto (Un sp spec)Ordered By: Al Argueta on 06-08-2024 Lymphocytes/100 WBC (Bld) 17.8 % Low 19-41 [facility] M100.678on 06-08-2024 M100.678 SARS-CoV-2 (COVID 19 ) Negative INFLUENZA A Negative INFLUENZA B Negative RSV PCR Negative Normal [facility] Comment on above: Performed By: #### L 7400.3000, L506.1000, L503.0105, L500.4050, L501.9520, L801.1541, L801.1543, L3380.1400, L100.0100, L3310.0000, L506.0250 #### [facility] Laboratory [address] [place], [address] MCV (mean corpuscular volume ) determinationOrdered By: Al Argueta on 06-08-2024 MCV (RBC) [Entitic vol] 90.5 fL 81-99 [facility] Mean corpuscular hemoglobin (MCH) determinationOrdered By: Al Argueta on 06-08-2024 MCH (RBC) [Entitic mass] 28.2 pg 27.0-32.0 [facility] [facility] [place] Mean corpuscular hemoglobin concentration (MCHC) determinationOrdered By: Al Argueta on 06-08-2024 MCHC (RBC) [Mass/Vol] 31.2 g/dL Low 32-36 [facility] Mean platelet volume determi nationOrdered By: Al Argueta on 06-08-2024 Platelet mean volume (Bld) [Entitic vol] 10.7 fL 6.2-12.0 [facility] [place] Microscopic analysis of urin e for red blood cells (RBC)Ordered By: Al Argueta on 06-08-2024 Urine RBC 5-10 SEEN /hpf 0-5 [facility] Monocyte percentageOrdered B y: Al Argueta on 06-08-2024 Monocytes/100 WBC (Bld) 8.0 % 0-10 [facility] Mucus LM Ql (Urine sed)Order ed By: Al Argueta on 06-08-2024 Mucus Ql (Urine sed) RARE /hpf [facility] Neutrophil percentageOrdered By: Al Argueta on 06-08-2024 Neutrophils/100 WBC (Bld) 73.6 % High 47-70 [facility] Nitrite Test strip Ql (U)Ord ered By: Al Argueta on 06-08-2024 Nitrite Ql (U) Negative Negative [facility] Nucleated red blood cell per centageOrdered By: Al Argueta on 06-08-2024 Nucleated RBC/100 WBC (Bld) [Ratio] 0 % 0-5 [facility] Platelet countOrdered By: Benji Argueta on 06-08-2024 Platelets (Bld) [#/Vol] 292 10*3/uL 150-450 [facility] Potassium measurementOrdered By: Al Argueta on 06-08-2024 Potassium [Moles/Vol] 3.7 mmol/L 3.5-5.1 [facility] ,Serum,hCG Quali.on 06-08-2024 HCG, SERUM QUAL Negative Normal [facility] Comment on above: Performed By: #### L 7400.3000, L506.1000, L503.0105, L500.4050, L501.9520, L801.1541, L801.1543, L3380.1400, L100.0100, L3310.0000, L506.0250 #### [facility] [place] [address] [place], [address] Protein Test strip Ql (U)Ord ered By: Al Argueta on 06-08-2024 Protein Ql (U) 30 mg/dl High Negative [facility] RBC Auto (Bld) [#/Vol]Ordere d By: Al Argueta on 06-08-2024 RBC (Bld) [#/Vol] 5.03 10*6/uL 4.2-5.4 [facility] Serum anion gap measurementO rdered By: Al Argueta on 06-08-2024 Anion gap [Moles/Vol] 12 mmol/L 5-15 [facility] Serum globulin measurementOr dered By: Al Argueta on 06-08-2024 Globulin (S) [Mass/Vol] 4.2 g/dL 2.2-4.2 [facility] Serum or plasma alanine drummond otransferase (ALT) measurementOrdered By: Al Argueta on 06-08-2024 ALT [Catalytic activity/Vol] 20 U/L 13-56 [facility] Serum or plasma albumin caryl urement (mass/volume)Ordered By: Al Argueta on 06-08-2024 Albumin [Mass/Vol] 3.3 g/dL 3.2-5.0 [facility] Serum or plasma alkaline sumeet sphatase measurementOrdered By: Al Argueta on 06-08-2024 ALP [Catalytic activity/Vol] 94 U/L 45-117 [facility] Serum or plasma calcium caryl urement (mass/volume)Ordered By: Al Argueta on 06-08-2024 Calcium [Mass/Vol] 8.9 mg/dL 8.5-10.1 [facility] Serum or plasma creatinine m easurement (mass/volume)Ordered By: Al Argueta on 06-08-2024 Creatinine [Mass/Vol] 1.19 mg/dL High 0.55-1.02 [facility] Comment on above: The validity of the calculated GFR & GFRAA in patients over 70 years has not been determined. Clinical correlation is essential. Serum or plasma urea nitroge n measurement (mass/volume)Ordered By: Al Argueta on 06-08-2024 Urea nitrogen [Mass/Vol] 7 mg/dL 7-18 [facility] Sodium levelOrdered By: Alida Argeuta on 06-08-2024 Sodium [Moles/Vol] 140 mmol/L 136-145 [facility] T4 Free Directon 06-08-2024 T4 FREE DIRECT 0.89 ng/dL Normal 0.76-1.46 [facility] [place] Comment on above: Order Comment: 'TROP ' Serial specimen #1, #2 or #3: 1 Performed By: #### L 7400.3000, L506.1000, L503.0105, L500.4050, L501.9520, L801.1541, L801.1543, L3380.1400, L100.0100, L3310.0000, L506.0250 #### [facility] Laboratory [address] [place], [place], [id number] TSH QnOrdered By: Al cox on 06-08-2024 Thyroid Stimulating Hormone (TSH) 7.930 uIU/mL High 0.358-3.74 0 [facility] Thyroid Stim Hormone (TSH)on 06-08-2024 TSH 7.930 uIU/mL High 0.358-3.74 0 [facility] Comment on above: Order Comment: 'TROP ' Serial specimen #1, #2 or #3: 1 Performed By: #### L 7400.3000, L506.1000, L503.0105, L500.4050, L501.9520, L801.1541, L801.1543, L3380.1400, L100.0100, L3310.0000, L506.0250 #### [facility] Laboratory [address] [place], [place], [id number] Total proteinOrdered By: Devi Argueta on 06-08-2024 Protein [Mass/Vol] 7.5 g/dL 6.4-8.2 [facility] Troponin IOrdered By: Al Argueta on 06-08-2024 Troponin I High Sensitivity < 3 pg/mL Low 3.0-54.0 [facility] Comment on above: Please Note: New Billie t Units and Gender Specific Reference Ranges. For more information see Policy Stat Procedure [place] High Sensitivity Troponin (TNIH) and attachments. Urinalysis, Completeon 06-08 BACTERIA 1+ /hpf Normal None Seen [facility] Comment on above: Order Comment: TANI TER SPECIMEN Performed By: #### L 7400.3000, L506.1000, L503.0105, L500.4050, L501.9520, L801.1541, L801.1543, L3380.1400, L100.0100, L3310.0000, L506.0250 #### [facility] Laboratory [address] [place], [address] EPI,SQUAMOUS 0-5 SEEN Normal 5-10 [facility] Comment on above: Order Comment: TANI TER SPECIMEN Performed By: #### L 7400.3000, L506.1000, L503.0105, L500.4050, L501.9520, L801.1541, L801.1543, L3380.1400, L100.0100, L3310.0000, L506.0250 #### [facility] Laboratory [address] [place], [address] Mucus Ql (Urine sed) RARE Normal [facility] Comment on above: Order Comment: TANI TER SPECIMEN Performed By: #### L 7400.3000, L506.1000, L503.0105, L500.4050, L501.9520, L801.1541, L801.1543, L3380.1400, L100.0100, L3310.0000, L506.0250 #### [facility] Laboratory [address] [place], [address] WBC 0-5 SEEN Normal 0-5 [facility] Comment on above: Order Comment: TANI TER SPECIMEN Performed By: #### L 7400.3000, L506.1000, L503.0105, L500.4050, L501.9520, L801.1541, L801.1543, L3380.1400, L100.0100, L3310.0000, L506.0250 #### [facility] Laboratory [address] [place], [address] RBC 5-10 SEEN Normal 0-5 [facility] Comment on above: Order Comment: TANI TER SPECIMEN Performed By: #### L 7400.3000, L506.1000, L503.0105, L500.4050, L501.9520, L801.1541, L801.1543, L3380.1400, L100.0100, L3310.0000, L506.0250 #### [facility] Laboratory [address] [place], [place], [address] Urine blood detectionOrdered By: Al Argueta on 06-08-2024 Urine Occult Blood 250 /ul High Negative [facility] Urine clarityOrdered By: Devi Argueta on 06-08-2024 Clarity (U) Sl. Cloudy Clear [facility] Urine color determinationOrd ered By: Al Argueta on 06-08-2024 Color (U) Yellow Yellow [facility] Urine leukocyte esterase det ection by dipstickOrdered By: Al Argueta on 06-08-2024 Leukocyte esterase Test strip Ql (U) 25 /ul High Negative [facility] Urine pHOrdered By: Al alcantara on 06-08-2024 pH (U) 6.5 [pH] 5.0 - 8.0 [facility] Urine sediment bacteria coun t by microscopy (number/high power field)Ordered By: Al Argueta on 06-08-2024 Bacteria LM.HPF (Urine sed) [#/Area] 1 /[HPF] None Seen [facility] Urine specific gravity measu rementOrdered By: Al Argueta on 06-08-2024 Specific gravity (U) [Rel density] 1.015 1.002-1.03 0 [facility] Urobilinogen Ql (U)Ordered B y: Al Argueta on 06-08-2024 Urine Urobilinogen Normal mg/dl Normal [facility] White blood cell (WBC) count Ordered By: Al Argueta on 06-08-2024 WBC (Bld) [#/Vol] 15.2 10*3/uL High 4.4-11.0 [facility] White blood cell countOrdere d By: Al Alvarengaer on 06-08-2024 Urine WBC 0-5 SEEN /hpf 0-5 [facility] CNOVon 04-04-2024 CNOV Office Visit ([facility]WSTR ) ----- MARIA DEL ROSARIO LAWS ([id number]) 1980 F Date Time Provider Department 04/04/24 2:40 PM WILMER MURILLOPATRICK During your visit today, we recorded the following information about you: Pulse Blood pressure Weight 83/minute 112/75 137.4 kg Wilmer Murillo MD 04/04/2024 3:11 PM Signed She always has chest pain [facility] SE[facility]AL CARDIOLOGY Cardiology ([facility]) [address] [address] OUTPATIENT VISIT DATE 04/04/2024 PRIMARY CARE PHYSICIAN: Daniel Tan [address] [place] [address] REFERRING PHYSICIAN: Cresencio Carrero MD ([facility]) [address] [place], [place] [address]p[facility]veen [facility] [address] CHIEF COMPLAINT: Chest pain HISTORY OF PRESENT ILLNESS: Ms. Laws is a 43 year old woman with multiple medical problems she has had a long history of chest pain syndrome. Most recent evaluation was in the fall 2021 at which time she had a normal echocardiogram and a relatively normal nuclear stress test. She presents for routine follow-up. Patient continues to endorse chest pain syndrome. She has chest pain that is intermittent lasting a few minutes to 10 minutes. It happens multiple times a day. It is not increased in frequency since her last office visit. Her chest pain is not affected by exertion. It is not reproducible. There is no associated shortness of breath or diaphoresis. PAST MEDICAL HISTORY Diagnosis Date Abnormal result [...] back STRESS TEST 03/10/2019 STRESS TEST 02/13/2022 SOCIAL HISTORY Social History Tobacco Use Smoking status: Never Smokeless tobacco: Never Substance Use Topics Alcohol use: No Drug use: No FAMILY HISTORY Problem Relation Age of Onset Asthma Mother other (Reflux) Mother other (angina) Mother Heart Father Seizures Father Seizures Brother Heart Sister GA Heart Sister Seizures Sister Young Diabetes Maternal Grandmother Stroke Maternal Grandmother other (hypoglycemia) Maternal Grandfather ALLERGIES: ALLERGIES Allergen Reactions Dayquil Liquicaps [* Other: [...] [Valdecoxib] Rash Cephalexin Intolerance Amoxil is ok MEDICATIONS: benzonatate (TESSALON PERLES) 100 mg capsule Take 2 capsules by mouth three times a day as needed. Dextromethorphan-guaiFENe sin (ROBITUSSIN DM) 10-200 mg/5 mL liqd Take 5 mL by mouth every 6 hours as needed. cyclobenzaprine (FLEXERIL) 10 mg tablet Take 1 tablet by mouth three times a day as needed for muscle spasm. fluticasone-salmeterol (ADVAIR DISKUS) 250-50 mcg/dose inhaler Inhale 1 Puff as instructed two times a day. Rinse and gargle mouth after use with water. TYLENOL ARTHRITIS PAIN 650 mg CR tablet Take 1 tablet by mouth every 8 hours as needed. omeprazole (PRILOSEC) 40 mg capsule Take 40 mg by mouth once daily. albuterol HFA (VENTOLIN HFA) 90 mcg/actuation inhaler Inhale 2 Puffs as instructed every 4 hours as needed for wheezing/shortness of breath. benztropine (COGENTIN) 1 mg tablet TAKE 1 AND 1/2 (ONE AND ONE-HALF) TABLETS BY MOUTH IN THE MORNING and ONE TABLET AT BEDTIME metoprolol succinate ER (TOPROL XL) 25 mg 24 hr tablet Take 1 tablet by mouth once [...] daily levETIRAcetam (KEPPRA) 750 mg tablet Take 1,000 mg by mouth two times a day. iloperidone (FANAPT) 4 mg tab Take 1 tablet by mouth daily at bedtime. topiramate (TOPAMAX) 200 mg tablet Take 2 tablets by mouth twice abby (more content not included)... Normal [facility] [id number] 04-04-2024 ECG01 Ventricular Rate : 8 5 BPM Atrial Rate : 85 BPM P-R Interval : 146 ms QRS Duration : 80 ms Q-T Interval : 346 ms QTC Calculation(Bazett) : 411 ms Calculated P [employer] : 30 degrees Calculated R [employer] : -9 degrees Calculated T [employer] : 14 degrees NORMAL SINUS RHYTHM ANTEROLATERAL INFARCTION , AGE UNDETERMINED ABNORMAL ECG Confirmed by MD CHONG GREGORY () on 04/06/2024 10:10:39 AM NAME : MARIA DEL ROSARIO LAWS PID : [id number] : 1980 Gender : Female Race : ORD : Procedure Date : Apr 04 2024 14:44:04 Edit Date : Apr 06 2024 10:10:40 Diagnosis: NORMAL SINUS RHYTHM ANTEROLATERAL INFARCTION , AGE UNDETERMINED ABNORMAL ECG Confirmed by MD CHONG GREGORY () on 04/06/2024 10:10:39 AM Test Reason : Location : 136 : [place] Overread By : MD CHONG GREGORY Edited By : MD CHONG GREGORY Referred By : WILMER MURILLO Acquired by : Mary osborne [facility] CNOVon 03-18-2024 CNOV Office Visit ([facility]WSTR ) ----- MARIA DEL ROSARIO LAWS ([id number]) 1980 F Date Time Provider Department 03/18/24 3:30 PM BRIGETTE MCMANUS [facility] During your visit today, we recorded the following information about you: Temperature Pulse Respiration Blood pressure 98.7 degrees 103/minute 20/minute 116/72 Weight 137 kg Brigette Mcmanus APRN.MILLER HEAD ASSISTANT WET PROCESS 03/18/2024 4:07 PM Signed Subjective URI She complains of cough, shortness of breath, sputum production and wheezing. Pertinent negatives include no fever, myalgias or sore throat. Maria Del Rosario Laws is a 43 year old female who presents with cough for past 2-3 months. Was seen by her PCP last month for same complaint. She has been using her inhaler at home. Chest xray was negative and she was prescribed tessalon perles and referred to pulmonology. She has not made this appointment. She states she is 5 or 6 months . Unsure on dates and does not have SURVEILLANCE SYSTEMS ANALYST I just going to let my angels watch over me. When asked how her was diagnosed she states I went and got a test. She is asked to give a urine sample today to confirm this and she refuses. Review of Systems Constitutional: Negative for chills and fever. HENT: Negative for congestion and sore throat. Respiratory: Positive for cough, sputum production, shortness of breath and wheezing. Cardiovascular: Negative. Musculoskeletal: Negative for back pain and myalgias. BP 116/72 Pulse 103 Temp 37.1 ?C (98.7 ?F) (Left Tympanic) Resp 20 Wt (!) 137 kg (302 lb 0.5 oz) LMP 06/17/2023 (Approximate) SpO2 99% BMI 54.19 kg/m? PAST MEDICAL HISTORY Diagnosis Date Abnormal result [...] 03/10/2019 STRESS TEST 02/13/2022 ALLERGIES Dayquil Liquicaps [Alkxibong-Qs-Dk-Acetamin ophen], Arithromycin [Azithromycin], Doxycycline, Latex, Mucinex Dm [Dextromethorphan-Guaifen esin], Risperdal [Risperidone], Strawberries, Tamiflu [Oseltamivir Phosphate], Topiramate, Bextra [Valdecoxib], and Cephalexin MEDICATIONS cyclobenzaprine (FLEXERIL) 10 mg tablet Take 1 tablet by mouth three times a day as needed for muscle spasm. fluticasone-salmeterol (ADVAIR DISKUS) 250-50 mcg/dose inhaler Inhale 1 Puff as instructed two times a day. Rinse and gargle mouth after use with water. TYLENOL ARTHRITIS PAIN 650 mg CR tablet Take 1 tablet by mouth every 8 hours as needed. omeprazole (PRILOSEC) 40 mg capsule Take 40 mg by mouth once daily. benztropine (COGENTIN) 1 mg tablet TAKE 1 AND 1/2 (ONE AND ONE-HALF) TABLETS BY MOUTH IN THE MORNING and ONE TABLET AT BEDTIME metoprolol succinate ER (TOPROL XL) 25 mg 24 hr tablet Take 1 tablet by mouth once [...] daily levETIRAcetam (KEPPRA) 750 mg tablet Take 1,000 mg by mouth two times a day. iloperidone (FANAPT) 4 mg tab Take 1 tablet by mouth daily at bedtime. topiramate (TOPAMAX) 200 mg tablet Take 2 tablets by mouth twice daily. lacosamide (VIMPAT) 200 mg tab Take 2 tablets by mouth twice daily. therapeutic multivitamin ORAL Tab Take one(1) tablet daily. benzonatate (TESSALON PERLES) 100 mg capsule Take 2 capsules by mouth three times a day as needed. Dextromethorphan-guaiFENe sin (ROBITUSSIN DM) 10-200 mg/5 mL liqd Take 5 mL by mouth every 6 hours as needed. albuterol HFA (VENTOLIN HFA) 90 mcg/actuation inhaler Inhale 2 Puffs as instructed every 4 hours as needed for wheezing/shortness of breath. Norethindrone, Contraceptive, (ORTHO MICRONOR) 0.35 mg tablet Take 1 tablet by mouth once daily. (Patient not taking: Reported on 03/18/2024) FAMILY HISTORY Problem Relation Age of Onset Asthma Mother other (Reflux) Mother other (angina) Mother Heart Father Seizures Father Seizures Brother Heart Sister GA Heart Sister Seizures Sister Young Diabetes Maternal Grandmother Stroke Maternal Grandmother other (hypoglycemia) Maternal Grandfather Social History Tobacco Use Smoking status: Never Smokeless tobacco (more content not included)... Normal [facility] Pollo 03-18-2024 WIN Telephone ([facility]) ----- MARIA DEL ROSARIO LAWS ([id number]) 1980 F Date Time Provider Department 03/18/24 ADNIEL TAN During your visit today, we recorded the following information about you: Linda Skinner LPN 03/18/2024 12:52 PM Signed Pt. having urinary and or uterine bleeding for 1 month. No appointments with PCP available today.Advised to go to urgent care or Er. Allergies As of Date: 03/18/2024 Noted Allergy Reaction DAYQUIL LIQUICAPS ([id number]* 3 14 - Other: See Comments Comments: Caused Seizure ARITHROMYCIN (AZITHROMYCIN) 10/27/2012 8 - GI Upset Comments: Z-Pack DOXYCYCLINE 07/22/2008 8 - GI Upset LATEX 08/21/2005 2 - Rash MUCINEX DM (DEXTROMETHORPHAN-GUAI* 5 - Intolerance Comments: gran mal seizure. [...] Intolerance Comments: Amoxil is ok Date Reviewed: 01/21/2024 Reviewed by: Giovana Contreras LPN - Fully Assessed Prescriptions as of 03/18/2024 - benzonatate (TESSALON PERLES) 100 mg capsule Take 2 capsules by mouth three times a day as needed. - cyclobenzaprine (FLEXERIL) 10 mg tablet Take 1 tablet by mouth three times a day as needed for muscle spasm. - fluticasone-salmeterol (ADVAIR DISKUS) 250-50 mcg/dose inhaler Inhale 1 Puff as instructed two times a day. Rinse and gargle mouth after use with water. - TYLENOL ARTHRITIS PAIN 650 mg CR tablet Take 1 tablet by mouth every 8 hours as needed. - omeprazole (PRILOSEC) 40 mg capsule Take 40 mg by mouth once daily. - albuterol HFA (VENTOLIN HFA) 90 mcg/actuation inhaler Inhale 2 Puffs as instructed every 4 hours as needed for wheezing/shortness of breath. - benztropine (COGENTIN) 1 mg tablet TAKE 1 AND 1/2 (ONE AND ONE-HALF) TABLETS BY MOUTH IN THE MORNING and ONE TABLET AT BEDTIME - metoprolol succinate ER (TOPROL XL) 25 mg 24 hr tablet Take 1 tablet by mouth once daily. - montelukast (SINGULAIR) 10 mg tablet Take 1 tablet by mouth daily at bedtime. - cetirizine (ZYRTEC) 10 mg tablet Take 1 tablet by mouth once daily. - citalopram (CELEXA) 20 mg tablet 20 mg once daily. 1 tablet daily - zonisamide (ZONEGRAN) 100 mg capsule Take 100 mg by mouth once daily. 2 capsules by mouth twice daily - levETIRAcetam (KEPPRA) 750 mg tablet Take 1,000 mg by mouth two times a day. - Norethindrone, Contraceptive, (ORTHO MICRONOR) 0.35 mg tablet Take 1 tablet by mouth once daily. - iloperidone (FANAPT) 4 mg tab [...] Ma 01[birth year]18 Taking Vimpat, Zonegran, and Albuterol. Linda Wall RN Problem List As Of Date 03/18/2024 Noted Resolved Other malaise and fatigue [R53.81, R53.83] 12/30/2004 11/06/2014 Myalgia and myositis, unspecified [[id number]] 05/08/2014 ESOPHAGEAL REFLUX [K21.9] Chronic factitious illness [...] Class III, BMI >= 40 [E66.01] 06/03/2018 Abnormal nuclear cardiac imaging test [R93.1] 07/27/2023 Other chest pain [R07.89] 07/27/2023 Encounter Status:Closed by LINDA SKINNER LPN on 03/18/24 [facility] 01-25-2024 WIN Telephone ([facility]) ----- MARIA DEL ROSARIO LAWS ([id number]) 1980 F Date Time Provider Department 01/25/24 IDALIA LEWIS [facility] During your visit today, we recorded the following information about you: Idalia Lewis APRN.MILLER HEAD ASSISTANT WET PROCESS 01/25/2024 4:53 PM Signed Can you please call the patient and family and let them know that I reviewed her knee x-ray results. X-ray showed arthritis. No fractures or dislocation noted. I would recommend that she continue supportive care at home. May use Tylenol as needed. May consider using a knee sleeve for extra support. Please let me know if they have any questions. Thank you. Idalia Lewis APRN.Emilee Ford RN 01/26/2024 8:52 AM Signed Called and left a voicemail for the Patient to call back and ask for a nurse to receive the providers message. PIERO Varela Lori, LPN 01/26/2024 10:47 AM Signed Pt notified of results AND message from provider, pt voiced understanding. Monik Hernandez LPN Allergies As of Date: 01/25/2024 Noted Allergy Reaction DAYQUIL LIQUICAPS ([id number]* 3 14 - Other: See Comments Comments: Caused Seizure ARITHROMYCIN (AZITHROMYCIN) 10/27/2012 8 - GI Upset Comments: Z-Pack DOXYCYCLINE 07/22/2008 8 - GI Upset LATEX 08/21/2005 2 - Rash MUCINEX DM (DEXTROMETHORPHAN-GUAI* 5 - Intolerance Comments: gran mal seizure. [...] Intolerance Comments: Amoxil is ok Date Reviewed: 01/21/2024 Reviewed by: Giovana Contreras LPN - Fully Assessed Reason for Visit: Results [95] Cmt: Knee Xray Prescriptions as of 01/26/2024 - benzonatate (TESSALON PERLES) 100 mg capsule Take 2 capsules by mouth three times a day as needed. - cyclobenzaprine (FLEXERIL) 10 mg tablet Take 1 tablet by mouth three times a day as needed for muscle spasm. - fluticasone-salmeterol (ADVAIR DISKUS) 250-50 mcg/dose inhaler Inhale 1 Puff as instructed two times a day. Rinse and gargle mouth after use with water. - TYLENOL ARTHRITIS PAIN 650 mg CR tablet Take 1 tablet by mouth every 8 hours as needed. - omeprazole (PRILOSEC) 40 mg capsule Take 40 mg by mouth once daily. - albuterol HFA (VENTOLIN HFA) 90 mcg/actuation inhaler Inhale 2 Puffs as instructed every 4 hours as needed for wheezing/shortness of breath. - benztropine (COGENTIN) 1 mg tablet TAKE 1 AND 1/2 (ONE AND ONE-HALF) TABLETS BY MOUTH IN THE MORNING and ONE TABLET AT BEDTIME - metoprolol succinate ER (TOPROL XL) 25 mg 24 hr tablet Take 1 tablet by mouth once daily. - montelukast (SINGULAIR) 10 mg tablet Take 1 tablet by mouth daily at bedtime. - cetirizine (ZYRTEC) 10 mg tablet Take 1 tablet by mouth once daily. - citalopram (CELEXA) 20 mg tablet 20 mg once daily. 1 tablet daily - zonisamide (ZONEGRAN) 100 mg capsule Take 100 mg by mouth once daily. 2 capsules by mouth twice daily - levETIRAcetam (KEPPRA) 750 mg tablet Take 1,000 mg by mouth two times a day. - Norethindrone, Contraceptive, (ORTHO MICRONOR) 0.35 mg tablet Take 1 tablet by mouth once daily. - iloperidone (FANAPT) 4 mg tab [...] Ma 01-02-18 Taking Vimpat, Zonegran, and Albuterol. Linda Elizabeth Zavodnik, RN Problem List As Of Date 01/25/2024 Noted Resolved Other malaise and fatigue [R53.81, R53.83] 12/30/2004 11/06/2014 Myalgia and myositis, unspecified [[id number]] 05/08/2014 ESOPHAGEAL REFLUX [K21.9] Chronic factitious illness [...] acute exacerbation [J45.901] 07/08/2016 Delusional disorder (HCC) [F22 (more content not included)... Normal [facility] ----- MARIA DEL ROSARIO LAWS ([id number]) 1980 F Date Time Provider Department 01/22/24 [facility] During your visit today, we recorded the following information about you: Idalia Lewis APRN.MILLER HEAD ASSISTANT WET PROCESS 01/22/2024 6:55 AM Signed Can you please call the patient and family and let them know that her chest x-ray was normal. No pneumonia noted. I have placed a consult for pulmonology as well as spirometry testing to ensure that her asthma is not getting worse. They may schedule appointment for pulmonology anytime. I would like her to continue supportive care at home and complete spirometry testing. Please let me know if they have any questions. Thank you. Idalia Lewis APRN.Giovana Merino LPN 01/22/2024 8:50 AM Signed TC to pt. LM to call office, ask for triage nurse to get results. DONAVAN Lopez Michelle, PIERO 01/22/2024 9:12 AM Signed patients mother and patient returned call and notified of information. They are asking for an rx of tessaljony milan be called into [facility] (only needs called back if rx cannot be called in) Patients mother was schedule to PSS to schedule with pulmonology. Idalia Lewis APRN.DIXIE 01/22/2024 9:27 AM Signed Prescription was refilled earlier this morning per Rx refill request. See chart review. Idalia Lewis APRN.MILLER HEAD ASSISTANT WET PROCESS Allergies As of Date: 01/22/2024 Noted Allergy Reaction DAYQUIL LIQUICAPS ([id number]* 3 14 - Other: See Comments Comments: Caused Seizure ARITHROMYCIN (AZITHROMYCIN) 10/27/2012 8 - GI Upset Comments: Z-Pack DOXYCYCLINE 07/22/2008 8 - GI Upset LATEX 08/21/2005 2 - Rash MUCINEX DM (DEXTROMETHORPHAN-GUAI* 5 - Intolerance Comments: gran mal seizure. [...] Intolerance Comments: Amoxil is ok Date Reviewed: 01/21/2024 Reviewed by: Giovana Contreras LPN - Fully Assessed Reason for Visit: Results [95] Cmt: Chest Xray Prescriptions as of 01/22/2024 - benzonatate (TESSALON PERLES) 100 mg capsule Take 2 capsules by mouth three times a day as needed. - cyclobenzaprine (FLEXERIL) 10 mg tablet Take 1 tablet by mouth three times a day as needed for muscle spasm. - fluticasone-salmeterol (ADVAIR DISKUS) 250-50 mcg/dose inhaler Inhale 1 Puff as instructed two times a day. Rinse and gargle mouth after use with water. - TYLENOL ARTHRITIS PAIN 650 mg CR tablet Take 1 tablet by mouth every 8 hours as needed. - omeprazole (PRILOSEC) 40 mg capsule Take 40 mg by mouth once daily. - albuterol HFA (VENTOLIN HFA) 90 mcg/actuation inhaler Inhale 2 Puffs as instructed every 4 hours as needed for wheezing/shortness of breath. - benztropine (COGENTIN) 1 mg tablet TAKE 1 AND 1/2 (ONE AND ONE-HALF) TABLETS BY MOUTH IN THE MORNING and ONE TABLET AT BEDTIME - metoprolol succinate ER (TOPROL XL) 25 mg 24 hr tablet Take 1 tablet by mouth once daily. - montelukast (SINGULAIR) 10 mg tablet Take 1 tablet by mouth daily at bedtime. - cetirizine (ZYRTEC) 10 mg tablet Take 1 tablet by mouth once daily. - citalopram (CELEXA) 20 mg tablet 20 mg once daily. 1 tablet daily - zonisamide (ZONEGRAN) 100 mg capsule Take 100 mg by mouth once daily. 2 capsules by mouth twice daily - levETIRAcetam (KEPPRA) 750 mg tablet Take 1,000 mg by mouth two times a day. - Norethindrone, Contraceptive, (ORTHO MICRONOR) 0.35 mg tablet Take 1 tablet by mouth once daily. - iloperidone (FANAPT) 4 mg tab [...] Ma 01-02-18 Taking Vimpat, Zonegran, and Albuterol. 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 Normal [facility] CNOVon 01-21-2024 CNOV Office Visit ([facility] ) ----- MARIA DEL ROSARIO LAWS ([id number]) 1980 F Date Time Provider Department 01/21/24 1:00 PM [facility] During your visit today, we recorded the following information about you: Temperature Pulse Respiration Blood pressure 99.1 degrees 85/minute 16/minute 128/87 Weight 141 kg Idalia Lewis APRN.MILLER HEAD ASSISTANT WET PROCESS 01/21/2024 3:07 PM Signed This is a 43 year old female who presents today with: Patient presents with: Acute Visit: bronchitis HISTORY OF PRESENT ILLNESS: Maria Del Rosario Laws is a 43 year old female. Patient presents with: Acute Visit: bronchitis Here in the office for concerns for bronchitis. Has been seen mutliple times for the same symptoms. Treated with 2 rounds of antibiotics. Chest xray has been negative in September and October. Has an active consult for ENT due to chronic sinus symptoms, has yet to schedule. Refers that cough and SOB has been on going since November. Using tessalon perles as needed. History of asthma. Not currently following with pulmonology. Using albuterol as needed. Right knee pain, fell down sisters steps a couple years ago. Refers that she Is still having pain. Not currently taking any OTC analgesia. PAST MEDICAL HISTORY: PAST MEDICAL HISTORY Diagnosis [...] 03/10/2019 STRESS TEST 02/13/2022 ALLERGIES Dayquil Liquicaps [Zzcnwulth-Cu-Vm-Acetamin ophen], Arithromycin [Azithromycin], Doxycycline, Latex, Mucinex Dm [Dextromethorphan-Guaifen esin], Risperdal [Risperidone], Strawberries, Tamiflu [Oseltamivir Phosphate], Topiramate, Bextra [Valdecoxib], and Cephalexin MEDICATIONS Current Outpatient Medications Medication Sig benzonatate (TESSALON PERLES) 100 mg capsule Take 2 capsules by mouth three times a day as needed. cyclobenzaprine (FLEXERIL) 10 mg tablet Take 1 tablet by mouth three times a day as needed for muscle spasm. fluticasone-salmeterol (ADVAIR DISKUS) 250-50 mcg/dose inhaler Inhale 1 Puff as instructed two times a day. Rinse and gargle mouth after use with water. TYLENOL ARTHRITIS PAIN 650 mg CR tablet Take 1 tablet by mouth every 8 hours as needed. omeprazole (PRILOSEC) 40 mg capsule Take 40 mg by mouth once daily. albuterol HFA (VENTOLIN HFA) 90 mcg/actuation inhaler Inhale 2 Puffs as instructed every 4 hours as needed for wheezing/shortness of breath. benztropine (COGENTIN) 1 mg tablet TAKE 1 AND 1/2 (ONE AND ONE-HALF) TABLETS BY MOUTH IN THE MORNING and ONE TABLET AT BEDTIME metoprolol succinate ER (TOPROL XL) 25 mg 24 hr tablet Take 1 tablet by mouth once [...] daily levETIRAcetam (KEPPRA) 750 mg tablet Take 1,000 mg by mouth two times a day. Norethindrone, Contraceptive, (ORTHO MICRONOR) 0.35 mg tablet [...] Father Seizures Father Seizures Brother Heart Sister GA Heart Sister Seizures Sister Young Diabetes Maternal [...] and significant neck swelling RESPIRATORY: + Cough and SOB CARDIOVASCULAR: Negative for chest pain, leg swelling, orthopnea, or palpitations GI: No nausea, vomiting, or diarr (more content not included)... Normal [facility] MARIA DEL ROSARIO LAWS ([id number]) 1980 F Date Time Provider Department 01/21/24 DANIEL TAN During your visit today, we recorded the following information about you: Tala Garcia RN 01/21/2024 8:13 AM Signed Patient's mother calling in with medical question regarding patient. Information provided. Tala Garcia RN Allergies As of Date: 01/21/2024 Noted Allergy Reaction DAYQUIL LIQUICAPS ([id number]* 3 14 - Other: See Comments Comments: Caused Seizure ARITHROMYCIN (AZITHROMYCIN) 10/27/2012 8 - GI Upset Comments: Z-Pack DOXYCYCLINE 07/22/2008 8 - GI Upset LATEX 08/21/2005 2 - Rash MUCINEX DM (DEXTROMETHORPHAN-GUAI* 5 - Intolerance Comments: gran mal seizure. [...] Intolerance Comments: Amoxil is ok Date Reviewed: 12/31/2023 Reviewed by: Giovana Contreras LPN - Fully Assessed Reason for Visit: Patient Question [0407] Prescriptions as of 01/21/2024 - benzonatate (TESSALON PERLES) 100 mg capsule Take 2 capsules by mouth three times a day as needed. - cyclobenzaprine (FLEXERIL) 10 mg tablet Take 1 tablet by mouth three times a day as needed for muscle spasm. - fluticasone-salmeterol (ADVAIR DISKUS) 250-50 mcg/dose inhaler Inhale 1 Puff as instructed two times a day. Rinse and gargle mouth after use with water. - TYLENOL ARTHRITIS PAIN 650 mg CR tablet Take 1 tablet by mouth every 8 hours as needed. - omeprazole (PRILOSEC) 40 mg capsule Take 40 mg by mouth once daily. - albuterol HFA (VENTOLIN HFA) 90 mcg/actuation inhaler Inhale 2 Puffs as instructed every 4 hours as needed for wheezing/shortness of breath. - benztropine (COGENTIN) 1 mg tablet TAKE 1 AND 1/2 (ONE AND ONE-HALF) TABLETS BY MOUTH IN THE MORNING and ONE TABLET AT BEDTIME - metoprolol succinate ER (TOPROL XL) 25 mg 24 hr tablet Take 1 tablet by mouth once daily. - montelukast (SINGULAIR) 10 mg tablet Take 1 tablet by mouth daily at bedtime. - cetirizine (ZYRTEC) 10 mg tablet Take 1 tablet by mouth once daily. - citalopram (CELEXA) 20 mg tablet 20 mg once daily. 1 tablet daily - zonisamide (ZONEGRAN) 100 mg capsule Take 100 mg by mouth once daily. 2 capsules by mouth twice daily - levETIRAcetam (KEPPRA) 750 mg tablet Take 1,000 mg by mouth two times a day. - Norethindrone, Contraceptive, (ORTHO MICRONOR) 0.35 mg tablet Take 1 tablet by mouth once daily. - iloperidone (FANAPT) 4 mg tab [...] Ma 01-02-18 Taking Vimpat, Zonegran, and Albuterol. Linda Wall RN Problem List As Of Date 01/21/2024 Noted Resolved Other malaise and fatigue [R53.81, R53.83] 12/30/2004 11/06/2014 Myalgia and myositis, unspecified [[id number]] 05/08/2014 ESOPHAGEAL REFLUX [K21.9] Chronic factitious illness [...] Class III, BMI >= 40 [E66.01] 06/03/2018 Abnormal nuclear cardiac imaging test [R93.1] 07/27/2023 Other chest pain [R07.89] 07/27/2023 Encounter Status:Closed by TALA GARCIA on 01/21/24 Normal [facility] XR CHEST 2V FRONTAL/LATon XR CHEST 2V FRONTAL/LAT * * *Final Repor t* * * DATE OF EXAM: Jan 21 2024 3:00PM WOX [id number] - XR CHEST 2V FRONTAL/LAT / PROCEDURE REASON: multiple diagnoses * * * * Physician Interpretation * * * * EXAMINATION: CHEST RADIOGRAPH (2 VIEW FRONTAL and LATERAL) CLINICAL HISTORY: URI, acute Moderate persistent asthma with acute exacerbation MQ: XC2_6 EXAM DATE/TIME: 01/21/2024 3:00 PM COMPARISON: Chest x-ray on 11/10/2023 RESULT: Lines, tubes, and devices: None. Lungs and pleura: Small lung volume due to inadequate inspiration. No definite consolidation. No lung mass. No pleural effusion. No pneumothorax. Cardiomediastinal silhouette: Stable cardiomediastinal silhouette. Bones and soft tissues: Unremarkable. IMPRESSION: No definite acute radiographic abnormality. Archives Director: MAGAN Transcribe Date/Time: Jan 21 2024 3:26P Dictated by : NOEL BALDWIN MD This examination was interpreted and the report reviewed and electronically signed by: NOEL BALDWIN MD on Jan 21 2024 3:26PM EST [id number] Normal [facility] XR Chest PA and Lateralon IMPRESSION: No definite acute radiographic abnormality. Archives Director: [facility] Transcribe Date/Time: Jan 21 2024 3:26P Dictated by : NOEL BALDWIN MD This examination was interpreted and the report reviewed and electronically signed by: NOEL BALDWIN MD on Jan 21 2024 3:26PM EST DIVISION OF RADIOLOGY * * *Final Report* * * DATE OF EXAM: Jan 21 2024 3:00PM WOX [id number] - XR CHEST 2V FRONTAL/LAT / PROCEDURE REASON: multiple diagnoses * * * * Physician Interpretation * * * * EXAMINATION: CHEST RADIOGRAPH (2 VIEW FRONTAL & LATERAL) CLINICAL HISTORY: URI, acute Moderate persistent asthma with acute exacerbation MQ: XC2_6 EXAM DATE/TIME: 01/21/2024 3:00 PM COMPARISON: Chest x-ray on 11/10/2023 RESULT: Lines, tubes, and devices: None. Lungs and pleura: Small lung volume due to inadequate inspiration. No definite consolidation. No lung mass. No pleural effusion. No pneumothorax. Cardiomediastinal silhouette: Stable cardiomediastinal silhouette. Bones and soft tissues: Unremarkable. DIVISION OF RADIOLOGY [facility] * * *Final Report* * * DATE OF EXAM: Jan 21 2024 3:00PM WOX [id number] - XR CHEST 2V FRONTAL/LAT / PROCEDURE REASON: multiple diagnoses * * * * Physician Interpretation * * * * EXAMINATION: CHEST RADIOGRAPH (2 VIEW FRONTAL & LATERAL) CLINICAL HISTORY: URI, acute Moderate persistent asthma with acute exacerbation MQ: XC2_6 EXAM DATE/TIME: 01/21/2024 3:00 PM COMPARISON: Chest x-ray on 11/10/2023 RESULT: Lines, tubes, and devices: None. Lungs and pleura: Small lung volume due to inadequate inspiration. No definite consolidation. No lung mass. No pleural effusion. No pneumothorax. Cardiomediastinal silhouette: Stable cardiomediastinal silhouette. Bones and soft tissues: Unremarkable. IMPRESSION IMPRESSION: No definite acute radiographic abnormality. Archives Director: [facility] Transcribe Date/Time: Jan 21 2024 3:26P Dictated by : NOEL BALDWIN MD This examination was interpreted and the report reviewed and electronically signed by: NOEL BALDWIN MD on Jan 21 2024 3:26PM EST [facility] Radiology Study observation (narrative) [facility] XR Chest PA and LateralOrder ed By: [facility] Provider on 01-21-2024 [facility] XR KNEE 2V AP/LAT RTon 01-20 XR KNEE 2V AP/LAT RT * * *Final Report* * * DATE OF EXAM: Jan 21 2024 3:00PM WOX [id number] - XR KNEE 2V AP/LAT RT / PROCEDURE REASON: Acute pain of right knee * * * * Physician Interpretation * * * * EXAM(s): XR KNEE 2V AP/LAT RT EXAM DATE/TIME: 01/21/2024 3:00 PM HISTORY: 43 years old Clinical information: Acute pain of right knee Acute right knee pain, no known injury. TECHNIQUE: Images: XR KNEE 2V AP/LAT RT Comparison: Right knee radiographs 12/11/2022, 01/06/2018.. RESULT: Findings: No acute fracture or dislocation. Mild right knee degenerative arthrosis with associated joint space narrowing most pronounced within the medial tibiofemoral compartment, similar to prior. No significant soft tissue swelling or effusion. IMPRESSION: Mild right knee degenerative arthrosis. Archives Director: [facility] Transcribe Date/Time: Jan 25 2024 2:47P Dictated by : ASIA TAFOYA MD This examination was interpreted and the report reviewed and electronically signed by: ASIA TAFOYA MD on Jan 25 2024 2:49PM EST [id number] Normal [facility] 01-11-2024 [facility] Telephone (FAMPWS) ----- MARIA DEL ROSARIO LAWS ([id number]) 1980 F Date Time Provider Department 01/11/24 IDALIA LEWIS [facility] During your visit today, we recorded the following information about you: Sheree Roberson LPN 01/11/2024 11:22 AM Signed Pt had OV 12/31/23 and prescribed cefdinir. Mother reports pt finished the atb and is not doing any better. Mother reports pt has nasal and chest congestion, coughing up green mucus, trouble breathing when laying down, wheezing at night even though propped up on pillows. Mother reports pt does not have a fever or pain in chest/back when coughing or breathing. Mother reports that amoxicillin is what works best for pt. Mother is requesting a rx for amoxicillin and Tessalon Perles. Please review and advise. DONAVAN Johnson Ashley, APRN.MILLER HEAD ASSISTANT WET PROCESS 01/11/2024 12:03 PM Signed Can you please call the patient's mother back and let her know that patient was treated with Augmentin at the end of November which is a penicillin-based antibiotic and recently just treated with cefdinir. If she is still having ongoing symptoms she will need to have a follow-up with a provider for further evaluation. She also has an active consult for ear nose and throat which was placed previously due chronic sinus symptoms. Thank you. Idalia Lewis APRN.Giovana Merino LPN 01/11/2024 12:41 PM Signed Patient mother notified of results, and recommendation. verbalizes understanding of instructions. Giovana Contreras LPN Allergies As of Date: 01/11/2024 Noted Allergy Reaction DAYQUIL LIQUICAPS ([id number]* 3 14 - Other: See Comments Comments: Caused Seizure ARITHROMYCIN (AZITHROMYCIN) 10/27/2012 8 - GI Upset Comments: Z-Pack DOXYCYCLINE 07/22/2008 8 - GI Upset LATEX 08/21/2005 2 - Rash MUCINEX DM (DEXTROMETHORPHAN-GUAI* 5 - Intolerance Comments: gran mal seizure. [...] Intolerance Comments: Amoxil is ok Date Reviewed: 12/31/2023 Reviewed by: Giovana Contreras LPN - Fully Assessed Reason for Visit: continued cough [Other] Prescriptions as of 01/11/2024 - benzonatate (TESSALON PERLES) 100 mg capsule Take 2 capsules by mouth three times a day as needed. - cyclobenzaprine (FLEXERIL) 10 mg tablet Take 1 tablet by mouth three times a day as needed for muscle spasm. - fluticasone-salmeterol (ADVAIR DISKUS) 250-50 mcg/dose inhaler Inhale 1 Puff as instructed two times a day. Rinse and gargle mouth after use with water. - TYLENOL ARTHRITIS PAIN 650 mg CR tablet Take 1 tablet by mouth every 8 hours as needed. - omeprazole (PRILOSEC) 40 mg capsule Take 40 mg by mouth once daily. - albuterol HFA (VENTOLIN HFA) 90 mcg/actuation inhaler Inhale 2 Puffs as instructed every 4 hours as needed for wheezing/shortness of breath. - benztropine (COGENTIN) 1 mg tablet TAKE 1 AND 1/2 (ONE AND ONE-HALF) TABLETS BY MOUTH IN THE MORNING and ONE TABLET AT BEDTIME - metoprolol succinate ER (TOPROL XL) 25 mg 24 hr tablet Take 1 tablet by mouth once daily. - montelukast (SINGULAIR) 10 mg tablet Take 1 tablet by mouth daily at bedtime. - cetirizine (ZYRTEC) 10 mg tablet Take 1 tablet by mouth once daily. - citalopram (CELEXA) 20 mg tablet 20 mg once daily. 1 tablet daily - zonisamide (ZONEGRAN) 100 mg capsule Take 100 mg by mouth once daily. 2 capsules by mouth twice daily - levETIRAcetam (KEPPRA) 750 mg tablet Take 1,000 mg by mouth two times a day. - Norethindrone, Contraceptive, (ORTHO MICRONOR) 0.35 mg tablet Take 1 tablet by mouth once daily. - iloperidone (FANAPT) 4 mg tab [...] Ma 01-02-18 Taking Vimpat, Zonegran, and Albuterol. Linda Wall RN Problem List As Of Date 01/11/2024 Noted Resolved Other malaise and fatigue [R53.81, R53.83] 12/30/2004 11/06/2014 Myalgia and myositis, unspecified [[id number]] 05/08/2014 ESOPHAGEAL REFLUX [K21.9] Chronic factitious illness with physical sympto* 10/08/2015 Asthma with status asthmaticus [J45.902] ADJUSTMENT DISORDER WI (more content not included)... Normal [facility] Basic Metabolic Profile (BMP )on 01-07-2024 BUN/CRE 7.3 RATIO Low 02-06 [facility] Comment on above: Performed By: #### L 500.2500, L100.0500 #### [facility] Laboratory [address] [place], [address] CA,Total 8.9 mg/dL Normal 8.5-10.1 [facility] Comment on above: Performed By: #### L 500.2500, L100.0500 #### [facility] [address] [place], [address] Chloride [Moles/Vol] 114 mmol/L High 98-107 [facility] Comment on above: Performed By: #### L 500.2500, L100.0500 #### [facility] [address] [place], [address] CO2 [Moles/Vol] 22.0 mmol/L Normal 21.0-32.0 [facility] Comment on above: Performed By: #### L 500.2500, L100.0500 #### [facility] [address] [place], [address] Creatinine [Mass/Vol] 0.96 mg/dL Normal 0.55-1.02 [facility] Comment on above: Result Comment: The validity of the calculated GFR GFRAA in patients over 70 years has not been determined. Clinical correlation is essential. Performed By: #### L 500.2500, L100.0500 #### [facility] [address] [place], [address] EST GFR - AA 82 mL/min Normal >60 [facility] Comment on above: Result Comment: Afri can Taiwanese GFR Calc Performed By: #### L 500.2500, L100.0500 #### [facility] [address] [place], [address] GAP 6 Normal 5-15 [facility] Comment on above: Performed By: #### L 500.2500, L100.0500 #### [facility] [address] [place], [address] GFR/1.73 sq M.predicted among non-blacks MDRD (S/P/Bld) [Vol rate/Area] 68 mL/min/{1.73_m2} Normal >60 [facility] Comment on above: Result Comment: Non- GFR Calc Performed By: #### L 500.2500, L100.0500 #### [facility] [address] [place], [address] Glucose [Mass/Vol] 103 mg/dL Normal 74-106 [facility] Comment on above: Result Comment: Fast ing Glucose result from 100 to 125 mg/dL suggests IMPAIRED HOMEOSTASIS per A.D.A. criteria. Performed By: #### L 500.2500, L100.0500 #### [facility] [address] [place], [address] Potassium [Moles/Vol] 3.9 mmol/L Normal 3.5-5.1 [facility] Comment on above: Performed By: #### L 500.2500, L100.0500 #### [facility] [address] [place], [address] Sodium [Moles/Vol] 142 mmol/L Normal 136-145 [facility] Comment on above: Performed By: #### L 500.2500, L100.0500 #### [facility] [address] [place], [address] Urea nitrogen [Mass/Vol] 7 mg/dL Normal 7-18 [facility] Comment on above: Performed By: #### L 500.2500, L100.0500 #### [facility] [address] [place], [address] Brain/Head without Contrasto n 01-07-2024 Brain/Head without Contrast [facility] [address] [place] [address] Brain/Head without Contrast MR#: [id number] Acct: [id number] Name: MARIA DEL ROSARIO LAWS Rep #: [id number] : 1980 F 43 From: Cj roldan MD PCP: Dr. Daniel Tan MD Status: REG ER Study: Brain/Head without Contrast Date of Exam: 12/19 01/11 Exam# [id number] Ordering Dr: Barrett Dolan DO [id number] STUDY: CT BRAIN WITHOUT CONTRAST REASON FOR EXAM: Female, 43 years old. Head trauma due to a seizure. RADIATION DOSAGE (If Supplied By Facility): CTDIvol = ( 47.06 ) mGy, DLP = ( 837.39 ) mGycm TECHNIQUE: Transaxial CT imaging of the brain was performed without administration of intravenous contrast material. Individualized dose optimization techniques were used for this CT. COMPARISON: Comparison is made with prior study dated June 03, 2019. FINDINGS: Normal soft tissue structures. Normal calvarium. Normal size ventricles and extra-axial spaces for the patient''s age. Normal white matter tracts of the cerebral hemispheres. Normal basal ganglia and thalami. Normal brainstem. Normal cerebellum. There is no intracranial hemorrhage. There are no findings of an acute ischemic infarction. Normal visualized paranasal sinuses. CT/Brain/Head without Contrast IMPRESSION: Normal unenhanced CT scan of the brain. Electronically Signed: Cj Damon MD at 15:05 EDT Reading Location ID and State: [address] [place] [address] , Service support , CC: Dr. Daniel Tan MD; Dr. Barrett Dolan DO Archives Director: Signed Normal [facility] CBC-Complete Blood Cnt No Di ffon 01-07-2024 Erythrocyte distribution width (RBC) [Ratio] 13.3 % Normal 11.6-14.6 [facility] Comment on above: Performed By: #### L 500.2500, L100.0500 #### [facility] Laboratory [address] [place], [address] Hematocrit (Bld) [Volume fraction] 42.9 % Normal 37-47 [facility] Comment on above: Performed By: #### L 500.2500, L100.0500 #### [facility] Laboratory [address] [place], [address] Hemoglobin (Bld) [Mass/Vol] 13.5 g/dL Normal 12.0-15.0 [facility] Comment on above: Performed By: #### L 500.2500, L100.0500 #### [facility] [address] [place], [address] MCH (RBC) [Entitic mass] 29.0 pg Normal 27.0-32.0 [facility] Comment on above: Performed By: #### L 500.2500, L100.0500 #### [facility] Laboratory [address] [place], [address] MCHC (RBC) [Mass/Vol] 31.5 g/dL Low 32-36 [facility] Comment on above: Performed By: #### L 500.2500, L100.0500 #### [facility] Laboratory [address] [place], [address] MCV (RBC) [Entitic vol] 92.3 fL Normal 81-99 [facility] Comment on above: Performed By: #### L 500.2500, L100.0500 #### [facility] Laboratory [address] [place], [address] Platelet mean volume (Bld) [Entitic vol] 9.9 fL Normal 6.2-12.0 [facility] Comment on above: Performed By: #### L 500.2500, L100.0500 #### [facility] Laboratory [address] [place], [address] Platelets (Bld) [#/Vol] 251 10*3/uL Normal 150-450 [facility] Comment on above: Performed By: #### L 500.2500, L100.0500 #### [facility] Laboratory [address] [place], [address] RBC (Bld) [#/Vol] 4.65 10*6/uL Normal 4.2-5.4 [facility] Comment on above: Performed By: #### L 500.2500, L100.0500 #### [facility] [address] [place], [address] RDW SD 45.1 fl High 35.1-43.9 [facility] Comment on above: Performed By: #### L 500.2500, L100.0500 #### [facility] Laboratory [address] [place], [address] WBC (Bld) [#/Vol] 12.0 10*3/uL High 4.4-11.0 [facility] Comment on above: Performed By: #### L 500.2500, L100.0500 #### [facility] Laboratory [address] [place], [address] Emergency Department Summary on 01-07-2024 Emergency Department Summary [facility] Medical Records Department [address] [place] [address] Emergency Department Summary 01/07/24 MR#: [id number] Acct: [id number] Name: MARIA DEL ROSARIO LAWS Rep #: [id number] : 1980 43 From: Barrett Dolan DO PCP: Dr. Daniel Tan MD Status:DEP ER Location: ED HPI History of Present Illness Chief Complaint: Seizure [facility] Medical History Edema Abnormal stress test Acute bilateral otitis media Acute bronchitis Seizure PND (paroxysmal nocturnal dyspnea) Dyspnea on exertion Schizophrenia Chest pain PCOS (polycystic ovarian syndrome) Myalgia and myositis GERD (gastroesophageal reflux disease) Conversion disorder Chronic factitious illness with physical symptoms Adjustment disorder with depressed mood Generalized seizure disorder History of mental retardation History of asthma Home Medications ???Medication ???Instructions ???Recorded ???Last Taken ???Type cetirizine 10 mg tablet 10 mg PO DAILY 02/11/19 Unknown History iloperidone 4 mg tablet 4 mg PO QHS BIPOLAR 02/11/19 06/02/19 History lacosamide 200 mg tablet 400 mg PO BID SEIZURES 02/11/19 06/03/19 History multivitamin 1 tab PO DAILY 02/11/19 06/03/19 History topiramate 200 mg tablet (Topamax) 400 mg PO BID SEIZURES 02/11/19 06/03/19 History citalopram 20 mg tablet 20 mg PO DAILY 02/23/19 06/03/19 History albuterol sulfate 90 mcg/actuation 2 puff inhalation Q4H PRN PRN 05/07/19 05/29/19 Rx aerosol inhaler Wheezing ##1 ibuprofen 600 mg tablet 600 mg PO Q6H PRN PRN Pain 1-10 Or 06/16/20 Unknown Rx Fever #20 tabs benztropine 1 mg tablet 1 mg PO .COMPLEX 01/30/22 Unknown History montelukast 10 mg tablet 10 mg PO DAILY 01/30/22 Unknown History zonisamide 100 mg capsule 200 mg PO BID 01/30/22 Unknown History benzonatate 100 mg capsule 200 mg (2 x 100 mg) PO TID PRN 02/11/22 Unknown Rx cough #30 caps ibuprofen 200 mg capsule 200 mg PO Q6H PRN pain #30 caps 02/11/22 Unknown Rx cyclobenzaprine 10 mg tablet 10 mg PO TID 11/12/23 Unknown History fluticasone 250 mcg-salmeterol 50 1 ea inhalation BID 11/12/23 Unknown History mcg/dose blistr powdr for inhalation levetiracetam 750 mg tablet 1,500 mg PO BID 11/12/23 Unknown History (Pao) metoprolol succinate 25 mg 25 mg PO QDAY 11/12/23 Unknown History tablet,extended release 24 hr Allergy/AdvReac Type Severity Reaction Status Date / Time chlorpheniramine (From [facility] Allergy Intermediate seizure Verified 01/07/24 11:34 DayQuil) [facility]orphan ([facility] Allergy Intermediate seizure Verified 01/07/24 11:34 DayQuil) phenylpropanolamine (From Allergy Intermediate seizure Verified 01/07/24 11:34 [facility] DayQuil) pseudoephedrine (From [facility] Allergy Intermediate seizure Verified 01/07/24 11:34 DayQuil) azithromycin (From Zithromax Allergy Other Verified 01/07/24 11:34 Z-Johnny) cephalexin Allergy Unknown Verified 01/07/24 11:34 doxycycline Allergy Nausea Verified 01/07/24 11:34 guaifenesin (From Mucinex) Allergy Other Verified 01/07/24 11:34 latex Allergy Rash Verified 01/07/24 11:34 oseltamivir (From Tamiflu) Allergy Unknown Verified 01/07/24 11:34 risperidone (From Risperdal) Allergy Other Verified 01/07/24 11:34 strawberry Allergy Hives Verified 01/07/24 11:34 valdecoxib (From Bextra) Allergy Rash Verified 01/07/24 11:34 Family History Mother Asthma Father Heart disease Seizures Brother Seizures Sister Myocardial infarction Heart disease Seizures Grandmother Diabetes CVA (cerebral vascular accident) Social History Smoking Status: Never smoker alcohol intake: never substance use type: does not use caffeine: Yes Type: carbonated beverages EXAM Physical Exam Const Vital Signs: 01/07/24 11:33 01/07/24 13:33 01/07/24 15:00 Temperature 98 F Temperature Source Temporal Pulse Rate 96 87 85 Respiratory Rate 14 16 16 Blood Pressure 126/85 H 117/78 117/75 Blood Pressure Mean 98 91 89 Pulse Ox 96 97 98 Oxygen Delivery Method Room Air Room Air 01/07/24 15:48 Temperature 97.5 F L Temperature Source Pulse Rate 88 Respiratory Rate 16 Blood Pressure 119/75 Blood Pressure Mean 89 Pulse Ox 96 Oxygen Delivery Method MDM MDM MDM Narrative Medical decision making narrative: HISTORY OF PRESENT ILLNESS: 43-year-old female with history of seizure and conversion disorder, schizophrenia and developmental delay presents with concern for seizure. Per report patient was found facedown prior to arrival. Patient states she has not been wrapping but notes she is walking upstairs and she fell face forward. (more content not included)... Normal [facility] ,Urineon 01-07-2024 Beta HCG ( test) Ql (U) Negative Normal [facility] Comment on above: Result Comment: Very dilute urine specimens, as indicated by a low specific gravity, may not contain self pay representative levels of hCG. If is still suspected, a first morning urine specimen should be collected 48 hours later and tested. Performed By: #### L 7400.3000, L506.1000, L503.0105, L500.4050, L501.9520, L801.1541, L801.1543, L3380.1400, L100.0100, L3310.0000, L506.0250 #### [facility] Laboratory [address] [place], [address] Sinus/Facial Boneon 01-07-20 Sinus/Facial Bone [facility] [address] [place] [address] Sinus/Facial Bone MR#: [id number] Acct: [id number] Name: MARIA DEL ROSARIO LAWS Rep #: [id number] : 1980 F 43 From: Cj roldan MD PCP: Dr. Daniel Tan MD Status: [facility] Study: Sinus/Facial Bone Date of Exam: 01/07/24 Exam# [id number] Ordering Dr: Barrett Dolan DO [id number] STUDY: CT FACIAL BONES WITHOUT CONTRAST REASON FOR EXAM: Female, 43 years old. facial trauma due to a seizure. RADIATION DOSAGE (If Supplied By Facility): CTDIvol = ( 25.01 ) mGy, DLP = ( 436.09 ) mGycm TECHNIQUE: The patient was scanned in a multi detector CT scanner. Sagittal and coronal images were reconstructed. Individualized dose optimization techniques were used for this CT. COMPARISON: None. FINDINGS: Normal soft tissue structures. Normal orbital james and orbital contents. Normal nasal bones and anterior nasal spine. Normal facial bones. There is no demonstrated fracture. Normal visualized paranasal sinuses. CT/Sinus/Facial Bone IMPRESSION: Normal unenhanced CT of the facial bones. Electronically Signed: Cj Damon MD at 15:04 EDT , CC: Dr. Daniel Tan MD; Dr. Barrett Dolan DO Archives Director: Signed Normal [facility] Spine Cervical without Contr ason 01-07-2024 Spine Cervical without Contras [facility] [address] [place], [place] [id number] Spine Cervical without Contras MR#: [id number] Acct: [id number] Name: MARIA DEL ROSARIO LAWS Rep #: [id number] : 1980 F 43 From: Cj roldan MD PCP: Dr. Daniel Tan MD Status: REG ER Study: Spine Cervical without Contras Date of Exam: 0 01/07/24 Exam# [id number] Ordering Dr: Barrett Dloan DO [id number] STUDY: CT CERVICAL SPINE WITHOUT CONTRAST REASON FOR EXAM: Female, 43 years old. Neck pain following a seizure. RADIATION DOSAGE (If Supplied By Facility): CTDIvol = ( 25.85 ) mGy, DLP = ( 459.32 ) mGycm TECHNIQUE: High resolution transaxial imaging was performed without contrast material. Sagittal and coronal images were reconstructed. Individualized dose optimization techniques were used for this CT. COMPARISON: None FINDINGS: Normal craniovertebral junction. Normal anterior atlantoaxial articulation. Normal odontoid process. There is straightening of the normal cervical lordosis. Normal vertebral bodies and posterior osseous elements. C2-3: Normal endplates. Normal disc height and morphology. Normal central canal and intervertebral neuroforamina. C3-4: Normal endplates. Normal disc height and morphology. Normal central canal and intervertebral neuroforamina. C4-5: Normal endplates. Normal disc height and morphology. Normal central canal and intervertebral neuroforamina. C5-6: Normal endplates. Normal disc height and morphology. Normal central canal and intervertebral neuroforamina. C6-7: Normal endplates. Normal disc height and morphology. Normal central canal and intervertebral neuroforamina. C7-T1: Normal endplates. Normal disc height and morphology. Normal central canal and intervertebral neuroforamina. Normal visualized soft tissue structures. CT/Spine Cervical without Contras IMPRESSION: Normal unenhanced CT examination of the cervical spine. Electronically Signed: Cj Damon MD at 15:14 EDT , CC: Dr. Daniel Tan MD; Dr. Barrett Dolan DO Archives Director: Signed Normal [facility] 01-06-2024 [facility] ----- VETOMARIA DEL ROSARIO ([id number]) 1980 F Date Time Provider Department 01/06/24 IDALIA LEWIS [facility] During your visit today, we recorded the following information about you: Idalia Lewis APRN.MILLER HEAD ASSISTANT WET PROCESS 01/06/2024 9:42 AM Signed Can you please call the patient and let her know that I reviewed her x-ray results. X-ray of lumbar spine shows degenerative changes which is consistent with arthritis. No fractures noted. She may continue with Tylenol arthritis as needed for pain. May apply ice and heat to the area and gentle stretching. Thank you. Idalia Lewis APRN.Giovana Merino LPN 01/06/2024 9:59 AM Signed Patient mother notified of results, verbalizes understanding of instructions. Mother would like a Rx for calcium/Vit D3 to be sent to [facility] [place]. DONAVAN Lopez Ashley, APRN.DIXIE 01/06/2024 12:03 PM Signed Can you please call the patient's mother back and let her know that I attempted to order the calcium with vitamin D, it is showing that is not covered by insurance. Idalia Lewis APRN.Giovana Merino LPN 01/06/2024 12:08 PM Signed Patient mother notified of Rx unable to order., verbalizes understanding of instructions. Giovana Contreras LPN Allergies As of Date: 01/06/2024 Noted Allergy Reaction DAYQUIL LIQUICAPS ([id number]* 3 14 - Other: See Comments Comments: Caused Seizure ARITHROMYCIN (AZITHROMYCIN) 10/27/2012 8 - GI Upset Comments: Z-Pack DOXYCYCLINE 07/22/2008 8 - GI Upset LATEX 08/21/2005 2 - Rash MUCINEX DM (DEXTROMETHORPHAN-GUAI* 5 - Intolerance Comments: gran mal seizure. [...] Intolerance Comments: Amoxil is ok Date Reviewed: 12/31/2023 Reviewed by: Giovana Contreras LPN - Fully Assessed Reason for Visit: Results [95] Cmt: Lumbar Xray Prescriptions as of 01/06/2024 - cefdinir (OMNICEF) 300 mg capsule Take 1 capsule by mouth two times a day for 10 days. - benzonatate (TESSALON PERLES) 100 mg capsule Take 2 capsules by mouth three times a day as needed. - cyclobenzaprine (FLEXERIL) 10 mg tablet Take 1 tablet by mouth three times a day as needed for muscle spasm. - fluticasone-salmeterol (ADVAIR DISKUS) 250-50 mcg/dose inhaler Inhale 1 Puff as instructed two times a day. Rinse and gargle mouth after use with water. - TYLENOL ARTHRITIS PAIN 650 mg CR tablet Take 1 tablet by mouth every 8 hours as needed. - omeprazole (PRILOSEC) 40 mg capsule Take 40 mg by mouth once daily. - albuterol HFA (VENTOLIN HFA) 90 mcg/actuation inhaler Inhale 2 Puffs as instructed every 4 hours as needed for wheezing/shortness of breath. - benztropine (COGENTIN) 1 mg tablet TAKE 1 AND 1/2 (ONE AND ONE-HALF) TABLETS BY MOUTH IN THE MORNING and ONE TABLET AT BEDTIME - metoprolol succinate ER (TOPROL XL) 25 mg 24 hr tablet Take 1 tablet by mouth once daily. - montelukast (SINGULAIR) 10 mg tablet Take 1 tablet by mouth daily at bedtime. - cetirizine (ZYRTEC) 10 mg tablet Take 1 tablet by mouth once daily. - citalopram (CELEXA) 20 mg tablet 20 mg once daily. 1 tablet daily - zonisamide (ZONEGRAN) 100 mg capsule Take 100 mg by mouth once daily. 2 capsules by mouth twice daily - levETIRAcetam (KEPPRA) 750 mg tablet Take 1,000 mg by mouth two times a day. - Norethindrone, Contraceptive, (ORTHO MICRONOR) 0.35 mg tablet Take 1 tablet by mouth once daily. - iloperidone (FANAPT) 4 mg tab [...] Ma 01[birth year]18 Taking Vimpat, Zonegran, and Albuterol. 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 Normal [facility] CNOVon 12-31-2023 CNOV Office Visit ([facility] ) ----- MARIA DEL ROSARIO LAWS ([id number]) 1980 F Date Time Provider Department 12/31/23 10:20 AM [facility] During your visit today, we recorded the following information about you: Temperature Pulse Respiration Blood pressure 99.4 degrees 80/minute 16/minute 120/80 Weight 143 kg Idalia Lewis APRN.MILLER HEAD ASSISTANT WET PROCESS 12/31/2023 11:31 AM Signed This is a 43 year old female who presents today with: Patient presents with: Acute Visit: fell HISTORY OF PRESENT ILLNESS: Maria Del Rosario Laws is a 43 year old female. Patient presents with: Acute Visit: fell Here in the office for illness and pain after a fall. Refers that she has noticed increase in coughing. Coughing up brown mucus. Not currently taking any OTC medication at this time. History of asthma, has not been taking advair as prescribed. Increase in wheezing. Feels like she has been having temp at home. Was treated with augmentin in late November, was seen in ER, PCP sent in antibiotic due to on going symptoms. Antibiotics did not help. Fall: pain after a fall. Refers that fall was not caused by a seizure. Patient was coherent. Complaining of ongoing back pain. Not currently taking anything for pain. No loss of bowel/bladder or saddle anesthesia. 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 No date: Closed fracture of unspecified bone Comment: right arm No date: Closed fracture of unspecified bone Comment: left ankle No date: Esophageal reflux No date: Myalgia and myositis, unspecified No date: Other forms of dyspnea 09/26/2011: Seizure disorder (HCC) No date: SOB (shortness of breath) No date: Unspecified asthma, with status asthmaticus PAST SURGICAL HISTORY 06/16/2020: CHEST X-RAY 06/16/2020: CHEST X-RAY 02/13/2022: ECHO Comment: EF60% 09/30/2019: EKG No date: PAST SURGICAL HISTORY OF Comment: cyst removal from lower back 03/10/2019: STRESS TEST 02/13/2022: STRESS TEST ALLERGIES Dayquil Liquicaps [Vhowzribf-Yi-Ke-Acetamin ophen], Arithromycin [Azithromycin], Doxycycline, Latex, Mucinex Dm [Dextromethorphan-Guaifen esin], Risperdal [Risperidone], Strawberries, Tamiflu [Oseltamivir Phosphate], Topiramate, Bextra [Valdecoxib], and Cephalexin MEDICATIONS Current Outpatient Medications Medication Sig cyclobenzaprine (FLEXERIL) 10 mg tablet Take 1 tablet by mouth three times a day as needed for muscle spasm. benzonatate (TESSALON PERLES) 100 mg capsule Take 2 capsules by mouth three times a day as needed. fluticasone-salmeterol (ADVAIR DISKUS) 250-50 mcg/dose inhaler Inhale 1 Puff as instructed two times a day. Rinse and gargle mouth after use with water. TYLENOL ARTHRITIS PAIN 650 mg CR tablet Take 1 tablet by mouth every 8 hours as needed. omeprazole (PRILOSEC) 40 mg capsule Take 40 mg by mouth once daily. albuterol HFA (VENTOLIN HFA) 90 mcg/actuation inhaler Inhale 2 Puffs as instructed every 4 hours as needed for wheezing/shortness of breath. benztropine (COGENTIN) 1 mg tablet TAKE 1 AND 1/2 (ONE AND ONE-HALF) TABLETS BY MOUTH IN THE MORNING and ONE TABLET AT BEDTIME metoprolol succinate ER (TOPROL XL) 25 mg 24 hr tablet Take 1 tablet by mouth once [...] daily levETIRAcetam (KEPPRA) 750 mg tablet Take 1,000 mg by mouth two times a day. Norethindrone, Contraceptive, (ORTHO MICRONOR) 0.35 mg tablet [...] Father Seizures Father Seizures Brother Heart Sister GA Heart Sister Seizures Sister Young Diabetes Maternal [...] NECK: Negative for lumps, goiter, pain and signific (more content not included)... Normal [facility] XR LUMBAR 3V AP/LAT/L5-S1on 12-31-2023 XR LUMBAR 3V AP/LAT/L5-S1 * * *Final Report* * * DATE OF EXAM: Dec 31 2023 11:04AM WOX [id number] - XR LUMBAR 3V AP/LAT/L5-S1 / PROCEDURE REASON: multiple diagnoses * * * * Physician Interpretation * * * * EXAM TITLE: XR LUMBAR 3V AP/LAT/L5-S1 EXAM DATE/TIME: 12/31/2023 11:04 AM COMPARISON: X-ray lumbar spine on 02/21/2013 CLINICAL INDICATION/HISTORY: Fall TECHNIQUE: AP, lateral and cone down lateral views of the lumbar spine are presented. FINDINGS: There are five pjl-qkd-lconcnv lumbar vertebrae. No acute fractures demonstrated, although L1 vertebral body wedge-shaped deformity is again noted. There is grade 1 L2 on L3 retrolisthesis. T12-L1, L1-2, L2-3 and L3-4 disc space narrowing is demonstrated. There is moderate osteophyte formation. Kissing spine noted on lateral view. IMPRESSION: Lumbar spine degenerative changes with multilevel disc space narrowing. Archives Director: [facility] Transcribe Date/Time: Jan 04 2024 1:16P Dictated by : NOEL BALDWIN MD This examination was interpreted and the report reviewed and electronically signed by: NOEL BALDWIN MD on Jan 04 2024 1:20PM EST [id number] Normal [facility]30[facility]2023 [facility] ----- VETOMARIA DEL ROSARIO ([id number]) 1980 F Date Time Provider Department 12/30/23 [facility] During your visit today, we recorded the following information about you: Moni Cordoba RN 12/30/2023 2:59 PM Signed Mother phoned to report patient fell last night onto her left side. Reports patient was alert and got up right away. States she knows it wasn't a seizure, because patient stayed alert. Reports today patient's left side hurts. No bruises or injuries that can be seen. No swelling that can be seen. Patient is up walking, and going places. Patient reports her left hip, leg, knee, and back hurt. Advised mother maybe patient should be seen in ER. Mother states patient will not go to ER. Scheduled appt with [facility] for tomorrow. Allergies As of Date: 12/30/2023 Noted Allergy Reaction DAYQUIL LIQUICAPS ([id number]* 3 14 - Other: See Comments Comments: Caused Seizure ARITHROMYCIN (AZITHROMYCIN) 10/27/2012 8 - GI Upset Comments: Z-Pack DOXYCYCLINE 07/22/2008 8 - GI Upset LATEX 08/21/2005 2 - Rash MUCINEX DM (DEXTROMETHORPHAN-GUAI* 5 - Intolerance Comments: gran mal seizure. [...] Intolerance Comments: Amoxil is ok Date Reviewed: 11/10/2023 Reviewed by: Shanthi Munoz LPN - Fully Assessed Reason for Visit: Patient fall [Other] Prescriptions as of 01/06/2024 - cefdinir (OMNICEF) 300 mg capsule Take 1 capsule by mouth two times a day for 10 days. - benzonatate (TESSALON PERLES) 100 mg capsule Take 2 capsules by mouth three times a day as needed. - cyclobenzaprine (FLEXERIL) 10 mg tablet Take 1 tablet by mouth three times a day as needed for muscle spasm. - fluticasone-salmeterol (ADVAIR DISKUS) 250-50 mcg/dose inhaler Inhale 1 Puff as instructed two times a day. Rinse and gargle mouth after use with water. - TYLENOL ARTHRITIS PAIN 650 mg CR tablet Take 1 tablet by mouth every 8 hours as needed. - omeprazole (PRILOSEC) 40 mg capsule Take 40 mg by mouth once daily. - albuterol HFA (VENTOLIN HFA) 90 mcg/actuation inhaler Inhale 2 Puffs as instructed every 4 hours as needed for wheezing/shortness of breath. - benztropine (COGENTIN) 1 mg tablet TAKE 1 AND 1/2 (ONE AND ONE-HALF) TABLETS BY MOUTH IN THE MORNING and ONE TABLET AT BEDTIME - metoprolol succinate ER (TOPROL XL) 25 mg 24 hr tablet Take 1 tablet by mouth once daily. - montelukast (SINGULAIR) 10 mg tablet Take 1 tablet by mouth daily at bedtime. - cetirizine (ZYRTEC) 10 mg tablet Take 1 tablet by mouth once daily. - citalopram (CELEXA) 20 mg tablet 20 mg once daily. 1 tablet daily - zonisamide (ZONEGRAN) 100 mg capsule Take 100 mg by mouth once daily. 2 capsules by mouth twice daily - levETIRAcetam (KEPPRA) 750 mg tablet Take 1,000 mg by mouth two times a day. - Norethindrone, Contraceptive, (ORTHO MICRONOR) 0.35 mg tablet Take 1 tablet by mouth once daily. - iloperidone (FANAPT) 4 mg tab [...] Ma 01-02-18 Taking Vimpat, Zonegran, and Albuterol. Linda Wall RN Problem List As Of Date 12/30/2023 Noted Resolved Other malaise and fatigue [R53.81, R53.83] 12/30/2004 11/06/2014 Myalgia and myositis, unspecified [TPR7107] 05/08/2014 ESOPHAGEAL REFLUX [K21.9] Chronic factitious illness [...] right knee, *07/16/2017 Sprain of right ankle, subs (more content not included)... Normal [facility] Urinalysis, Completeon 12-06 EPI,SQUAMOUS 5-10 SEEN Normal 5-10 [facility] Comment on above: Order Comment: CLEAN CATCH Performed By: #### L 7400.3000, L506.1000, L503.0105, L500.4050, L501.9520, L801.1541, L801.1543, L3380.1400, L100.0100, L3310.0000, L506.0250 #### [facility] Laboratory [address] [place], [place], [id number] RBC 0-5 SEEN Normal 0-5 [facility] [place] Comment on above: Order Comment: CLEAN CATCH Performed By: #### L 7400.3000, L506.1000, L503.0105, L500.4050, L501.9520, L801.1541, L801.1543, L3380.1400, L100.0100, L3310.0000, L506.0250 #### [facility] [place] Laboratory [address] [place], [address] CBC W/Diff, Automatedon 08- Absolute Lymph 2.69 X10 3/uL Normal 0.83-4.51 [facility] [place] Comment on above: Order Comment: SPECI MEN PLACED FOR RECOLLECTION DUE TO CLOT IN TUBE. [id number] AJEWELL Performed By: #### L 7400.3000, L506.1000, L503.0105, L500.4050, L501.9520, L801.1541, L801.1543, L3380.1400, L100.0100, L3310.0000, L506.0250 #### [facility] [place] Laboratory [address] [place], [place], [phone] ([address] Absolute Neut 7.3 X10 3/uL Normal 2.0-7.7 [facility] [place] Comment on above: Order Comment: SPECI MEN PLACED FOR RECOLLECTION DUE TO CLOT IN TUBE. [id number] AJEWELL Performed By: #### L 7400.3000, L506.1000, L503.0105, L500.4050, L501.9520, L801.1541, L801.1543, L3380.1400, L100.0100, L3310.0000, L506.0250 #### [facility] [place] Laboratory [address] [place], [address] Basophils/100 WBC (Bld) 0.1 % Normal 0-1 [facility] Comment on above: Order Comment: SPECI MEN PLACED FOR RECOLLECTION DUE TO CLOT IN TUBE. [id number] AJEWELL Performed By: #### L 7400.3000, L506.1000, L503.0105, L500.4050, L501.9520, L801.1541, L801.1543, L3380.1400, L100.0100, L3310.0000, L506.0250 #### [facility] [place] Laboratory [address] [place], [address] Eosinophils/100 WBC (Bld) 0.0 % Normal 0-5 [facility] [place] Comment on above: Order Comment: SPECI MEN PLACED FOR RECOLLECTION DUE TO CLOT IN TUBE. [id number] AJEWELL Performed By: #### L 7400.3000, L506.1000, L503.0105, L500.4050, L501.9520, L801.1541, L801.1543, L3380.1400, L100.0100, L3310.0000, L506.0250 #### [facility] [place] Laboratory [address] [place], [address] Erythrocyte distribution width (RBC) [Ratio] 13.2 % Normal 11.6-14.6 [facility] [place] Comment on above: Order Comment: SPECI MEN PLACED FOR RECOLLECTION DUE TO CLOT IN TUBE. [id number] AJEWELL Performed By: #### L 7400.3000, L506.1000, L503.0105, L500.4050, L501.9520, L801.1541, L801.1543, L3380.1400, L100.0100, L3310.0000, L506.0250 #### [facility] [place] Laboratory [address] [place], [place], [phone] ([phone] Hematocrit (Bld) [Volume fraction] 40.8 % Normal 37-47 [facility] [place] Comment on above: Order Comment: SPECI MEN PLACED FOR RECOLLECTION DUE TO CLOT IN TUBE. [id number] AJEWELL Performed By: #### L 7400.3000, L506.1000, L503.0105, L500.4050, L501.9520, L801.1541, L801.1543, L3380.1400, L100.0100, L3310.0000, L506.0250 #### [facility] [place] Laboratory [address] [place], [address] Hemoglobin (Bld) [Mass/Vol] 13.1 g/dL Normal 12.0-15.0 [facility] [place] Comment on above: Order Comment: SPECI MEN PLACED FOR RECOLLECTION DUE TO CLOT IN TUBE. [id number] AJEWELL Performed By: #### L 7400.3000, L506.1000, L503.0105, L500.4050, L501.9520, L801.1541, L801.1543, L3380.1400, L100.0100, L3310.0000, L506.0250 #### [facility] [place] Laboratory [address] [place], [address] IG% 0.400 Normal 0.0-0.9 [facility] [place] Comment on above: Order Comment: SPECI MEN PLACED FOR RECOLLECTION DUE TO CLOT IN TUBE. [id number] AJEWELL Result Comment: IG% - Immature Granulocytes (promyelocytes, myelocytes and metamyelocytes) > 1% indicates that a LEFT SHIFT is Present. Performed By: #### L 7400.3000, L506.1000, L503.0105, L500.4050, L501.9520, L801.1541, L801.1543, L3380.1400, L100.0100, L3310.0000, L506.0250 #### [facility] [place] Laboratory [address] [place], [address] Lymphocytes/100 WBC (Bld) 24.9 % Normal 19-41 [facility] [place] Comment on above: Order Comment: SPECI MEN PLACED FOR RECOLLECTION DUE TO CLOT IN TUBE. [id number] AJEWELL Performed By: #### L 7400.3000, L506.1000, L503.0105, L500.4050, L501.9520, L801.1541, L801.1543, L3380.1400, L100.0100, L3310.0000, L506.0250 #### [facility] [place] Laboratory [address] [place], [address] MCH (RBC) [Entitic mass] 29.7 pg Normal 27.0-32.0 [facility] Comment on above: Order Comment: SPECI MEN PLACED FOR RECOLLECTION DUE TO CLOT IN TUBE. [id number] AJEWELL Performed By: #### L 7400.3000, L506.1000, L503.0105, L500.4050, L501.9520, L801.1541, L801.1543, L3380.1400, L100.0100, L3310.0000, L506.0250 #### [facility] [place] Laboratory [address] [place], [address] MCHC (RBC) [Mass/Vol] 32.1 g/dL Normal 32-36 [facility] Comment on above: Order Comment: SPECI MEN PLACED FOR RECOLLECTION DUE TO CLOT IN TUBE. [id number] AJEWELL Performed By: #### L 7400.3000, L506.1000, L503.0105, L500.4050, L501.9520, L801.1541, L801.1543, L3380.1400, L100.0100, L3310.0000, L506.0250 #### [facility] Laboratory [address] [place], [address] MCV (RBC) [Entitic vol] 92.5 fL Normal 81-99 [facility] Comment on above: Order Comment: SPECI MEN PLACED FOR RECOLLECTION DUE TO CLOT IN TUBE. [id number] AJEWELL Performed By: #### L 7400.3000, L506.1000, L503.0105, L500.4050, L501.9520, L801.1541, L801.1543, L3380.1400, L100.0100, L3310.0000, L506.0250 #### [facility] Laboratory [address] [place], [address] Monocytes/100 WBC (Bld) 7.6 % Normal 0-10 [facility] Comment on above: Order Comment: SPECI MEN PLACED FOR RECOLLECTION DUE TO CLOT IN TUBE. [id number] AJEWELL Performed By: #### L 7400.3000, L506.1000, L503.0105, L500.4050, L501.9520, L801.1541, L801.1543, L3380.1400, L100.0100, L3310.0000, L506.0250 #### [facility] Laboratory [address] [place], [address] Neutrophils/100 WBC (Bld) 67.0 % Normal 47-70 [facility] [place] Comment on above: Order Comment: SPECI MEN PLACED FOR RECOLLECTION DUE TO CLOT IN TUBE. [id number] AJEWELL Performed By: #### L 7400.3000, L506.1000, L503.0105, L500.4050, L501.9520, L801.1541, L801.1543, L3380.1400, L100.0100, L3310.0000, L506.0250 #### [facility] Laboratory [address] [place], [address] Nucleated RBC (Bld) [#/Vol] 0 10*3/uL Normal 0-5 [facility] [place] Comment on above: Order Comment: SPECI MEN PLACED FOR RECOLLECTION DUE TO CLOT IN TUBE. [id number] AJEWELL Performed By: #### L 7400.3000, L506.1000, L503.0105, L500.4050, L501.9520, L801.1541, L801.1543, L3380.1400, L100.0100, L3310.0000, L506.0250 #### [facility] Laboratory [address] [place], [address] Platelet mean volume (Bld) [Entitic vol] 10.6 fL Normal 6.2-12.0 [facility] Comment on above: Order Comment: SPECI MEN PLACED FOR RECOLLECTION DUE TO CLOT IN TUBE. [id number]/[id number] AJEWELL Performed By: #### L 7400.3000, L506.1000, L503.0105, L500.4050, L501.9520, L801.1541, L801.1543, L3380.1400, L100.0100, L3310.0000, L506.0250 #### [facility] Laboratory [address] [place], [address] Platelets (Bld) [#/Vol] 264 10*3/uL Normal 150-450 [facility] [place] Comment on above: Order Comment: SPECI MEN PLACED FOR RECOLLECTION DUE TO CLOT IN TUBE. [id number]/[id number] AJEWELL Performed By: #### L 7400.3000, L506.1000, L503.0105, L500.4050, L501.9520, L801.1541, L801.1543, L3380.1400, L100.0100, L3310.0000, L506.0250 #### [facility] Laboratory [address] [place], [address] RBC (Bld) [#/Vol] 4.41 10*6/uL Normal 4.2-5.4 [facility] Comment on above: Order Comment: SPECI MEN PLACED FOR RECOLLECTION DUE TO CLOT IN TUBE. [id number]/[id number] AJEWELL Performed By: #### L 7400.3000, L506.1000, L503.0105, L500.4050, L501.9520, L801.1541, L801.1543, L3380.1400, L100.0100, L3310.0000, L506.0250 #### [facility] Laboratory [address] [place], [address] RDW SD 44.6 fl High 35.1-43.9 [facility] Comment on above: Order Comment: SPECI MEN PLACED FOR RECOLLECTION DUE TO CLOT IN TUBE. [id number]/[id number] AJEWELL Performed By: #### L 7400.3000, L506.1000, L503.0105, L500.4050, L501.9520, L801.1541, L801.1543, L3380.1400, L100.0100, L3310.0000, L506.0250 #### [facility] Laboratory [address] [place], [address] WBC (Bld) [#/Vol] 10.8 10*3/uL Normal 4.4-11.0 [facility] Comment on above: Order Comment: SPECI MEN PLACED FOR RECOLLECTION DUE TO CLOT IN TUBE. [id number]/[id number] AJSORENELL Performed By: #### L 7400.3000, L506.1000, L503.0105, L500.4050, L501.9520, L801.1541, L801.1543, L3380.1400, L100.0100, L3310.0000, L506.0250 #### [facility] [place] Laboratory [address] [place], [address] Absolute Neut Normal 2.0-7.7 [facility] [place] Comment on above: Result Comment: This specimen has been REJECTED due to Laboratory criteria: Clotted. ER has been notified of need of recollection. 12/06/232155 Emilee Busch Performed By: #### L 7400.3000, L506.1000, L503.0105, L500.4050, L501.9520, L801.1541, L801.1543, L3380.1400, L100.0100, L3310.0000, L506.0250 #### [facility] Laboratory [address] [place], [address] HCT Normal 37-47 [facility] Comment on above: Result Comment: This specimen has been REJECTED due to Laboratory criteria: Clotted. ER has been notified of need of recollection. 12/06/232155 Emileejeffry Sanchezell Performed By: #### L 7400.3000, L506.1000, L503.0105, L500.4050, L501.9520, L801.1541, L801.1543, L3380.1400, L100.0100, L3310.0000, L506.0250 #### [facility] Laboratory [address] [place], [address] HGB Normal 12.0-15.0 [facility] Comment on above: Result Comment: This specimen has been REJECTED due to Laboratory criteria: Clotted. ER has been notified of need of recollection. 12/06/232155 Emileejeffry Sanchezell Performed By: #### L 7400.3000, L506.1000, L503.0105, L500.4050, L501.9520, L801.1541, L801.1543, L3380.1400, L100.0100, L3310.0000, L506.0250 #### [facility] Laboratory [address] [place], [place], [phone] (226) MCH Normal 27.0-32.0 [facility] [place] Comment on above: Result Comment: This specimen has been REJECTED due to Laboratory criteria: Clotted. ER has been notified of need of recollection. 12/06/232155 Emileejeffry Sanchezell Performed By: #### L 7400.3000, L506.1000, L503.0105, L500.4050, L501.9520, L801.1541, L801.1543, L3380.1400, L100.0100, L3310.0000, L506.0250 #### [facility] Laboratory [address] [place], [place], [address] MCHC Normal 32-36 [facility] [place] Comment on above: Result Comment: This specimen has been REJECTED due to Laboratory criteria: Clotted. ER has been notified of need of recollection. 12/06/232155 Emileejeffry Sanchezell Performed By: #### L 7400.3000, L506.1000, L503.0105, L500.4050, L501.9520, L801.1541, L801.1543, L3380.1400, L100.0100, L3310.0000, L506.0250 #### [facility] Laboratory [address] [place], [address] MCV Normal 81-99 [facility] Comment on above: Result Comment: This specimen has been REJECTED due to Laboratory criteria: Clotted. ER has been notified of need of recollection. 12/06/232155 Emilee C [place] Performed By: #### L 7400.3000, L506.1000, L503.0105, L500.4050, L501.9520, L801.1541, L801.1543, L3380.1400, L100.0100, L3310.0000, L506.0250 #### [facility] Laboratory [address] [place], [address] NEUT% Normal 47-70 [facility] [place] Comment on above: Result Comment: This specimen has been REJECTED due to Laboratory criteria: Clotted. ER has been notified of need of recollection. 12/06/232155 Emileejeffry Sanchezell Performed By: #### L 7400.3000, L506.1000, L503.0105, L500.4050, L501.9520, L801.1541, L801.1543, L3380.1400, L100.0100, L3310.0000, L506.0250 #### [facility] Laboratory [address] [place], [address] PLT Normal 150-450 [facility] Comment on above: Result Comment: This specimen has been REJECTED due to Laboratory criteria: Clotted. ER has been notified of need of recollection. 12/06/232155 Emilee C [place] Performed By: #### L 7400.3000, L506.1000, L503.0105, L500.4050, L501.9520, L801.1541, L801.1543, L3380.1400, L100.0100, L3310.0000, L506.0250 #### [facility] Laboratory [address] [place], [address] RBC Normal 4.2-5.4 [facility] Comment on above: Result Comment: This specimen has been REJECTED due to Laboratory criteria: Clotted. ER has been notified of need of recollection. 12/06/232155 Emilee C [facility] Performed By: #### L 7400.3000, L506.1000, L503.0105, L500.4050, L501.9520, L801.1541, L801.1543, L3380.1400, L100.0100, L3310.0000, L506.0250 #### [facility] Laboratory [address] [place], [address] RDW CV Normal 11.6-14.6 [facility] Comment on above: Result Comment: This specimen has been REJECTED due to Laboratory criteria: Clotted. ER has been notified of need of recollection. 12/06/232155 Emilee C [place] Performed By: #### L 7400.3000, L506.1000, L503.0105, L500.4050, L501.9520, L801.1541, L801.1543, L3380.1400, L100.0100, L3310.0000, L506.0250 #### [facility] Laboratory [address] [place], [address] RDW SD Normal 35.1-43.9 [facility] Comment on above: Result Comment: This specimen has been REJECTED due to Laboratory criteria: Clotted. ER has been notified of need of recollection. 12/06/232155 Emilee C [place] Performed By: #### L 7400.3000, L506.1000, L503.0105, L500.4050, L501.9520, L801.1541, L801.1543, L3380.1400, L100.0100, L3310.0000, L506.0250 #### [facility] Laboratory [address] [place], [place], [address] WBC Normal 4.4-11.0 [facility] Comment on above: Result Comment: This specimen has been REJECTED due to Laboratory criteria: Clotted. ER has been notified of need of recollection. 12/06/236 Emilee Busch Performed By: #### L 7400.3000, L506.1000, L503.0105, L500.4050, L501.9520, L801.1541, L801.1543, L3380.1400, L100.0100, L3310.0000, L506.0250 #### [facility] Laboratory [address] [place], [place], [address] Emergency Department Summary on 12-06-2023 Emergency Department Summary [facility] Medical Records Department [address] [place] [address] Emergency Department Summary 12/06/23 MR#: [id number] Acct: [id number] Name: MARIA DEL ROSARIO LAWS Rep #: [id number] : 1980 43 From: Nacho Olivia MD PCP: Dr. Daniel Tan MD Status:REG ER Location: ED HPI HPI - Female History of Present Illness Chief Complaint: Vag Bleeding Informant: patient Pain Pain: Positive for Pelvic Pain Context: Gradual Onset Timing: Intermittent Quality: Positive for Cramping Current Severity: Gone Maximum Severity: Mild Bleeding Issue: Positive for Vaginal bleeding Onset: Days Context: Gradual Onset Timing: Intermittent Current Severity: Mild Maximum Severity: Mild Associated Symptoms Associated Symptoms: Negative for Dysuria or Frequency Narrative Narrative: 43-year-old female history of schizophrenia, PCOS, seizures and developmental delay. States that for the last 3 days she has had mild vaginal bleeding with some mild cramping. Currently she is pain-free. Denies any sexual intercourse or instrumentation. She has not had menstrual period for years. She is not on any blood thinners. Prior similar symptoms: No Recent Illness/Hospitalization: No PFSH PFS Medical History Edema Abnormal stress test Acute bilateral otitis media Acute bronchitis Seizure PND (paroxysmal nocturnal dyspnea) Dyspnea on exertion Schizophrenia Chest pain PCOS (polycystic ovarian syndrome) Myalgia and myositis GERD (gastroesophageal reflux disease) Conversion disorder Chronic factitious illness with physical symptoms Adjustment disorder with depressed mood Generalized seizure disorder History of mental retardation History of asthma Home Medications ???Medication ???Instructions ???Recorded ???Last Taken ???Type cetirizine 10 mg tablet 10 mg PO DAILY 02/11/19 Unknown History iloperidone 4 mg tablet 4 mg PO QHS BIPOLAR 02/11/19 06/02/19 History lacosamide 200 mg tablet 400 mg PO BID SEIZURES 02/11/19 06/03/19 History multivitamin 1 tab PO DAILY 02/11/19 06/03/19 History topiramate 200 mg tablet (Topamax) 400 mg PO BID SEIZURES 02/11/19 06/03/19 History citalopram 20 mg tablet 20 mg PO DAILY 02/23/19 06/03/19 History albuterol sulfate 90 mcg/actuation 2 puff inhalation Q4H PRN PRN 05/07/19 05/29/19 Rx aerosol inhaler Wheezing ##1 ibuprofen 600 mg tablet 600 mg PO Q6H PRN PRN Pain 1-10 Or 06/16/20 Unknown Rx Fever #20 tabs benztropine 1 mg tablet 1 mg PO .COMPLEX 01/30/22 Unknown History montelukast 10 mg tablet 10 mg PO DAILY 01/30/22 Unknown History zonisamide 100 mg capsule 200 mg PO BID 01/30/22 Unknown History benzonatate 100 mg capsule 200 mg (2 x 100 mg) PO TID PRN 02/11/22 Unknown Rx cough #30 caps ibuprofen 200 mg capsule 200 mg PO Q6H PRN pain #30 caps 02/11/22 Unknown Rx cyclobenzaprine 10 mg tablet 10 mg PO TID 11/12/23 Unknown History fluticasone 250 mcg-salmeterol 50 1 ea inhalation BID 11/12/23 Unknown History mcg/dose blistr powdr for inhalation levetiracetam 750 mg tablet 1,500 mg PO BID 11/12/23 Unknown History (Pao) metoprolol succinate 25 mg 25 mg PO QDAY 11/12/23 Unknown History tablet,extended release 24 hr Allergy/AdvReac Type Severity Reaction Status Date / Time chlorpheniramine (From Syntensia Allergy Intermediate seizure Verified 12/06/23 19:35 DayQuil) dextromethorphan (From Vicks Allergy Intermediate seizure Verified 12/06/23 19:35 DayQuil) phenylpropanolamine (From Allergy Intermediate seizure Verified 12/06/23 19:35 Vicks DayQuil) pseudoephedrine (From Vicks Allergy Intermediate seizure Verified 12/06/23 19:35 DayQuil) azithromycin (From Zithromax Allergy Other Verified 12/06/23 19:35 Z-Johnny) cephalexin Allergy Unknown Verified 12/06/23 19:35 doxycycline Allergy Nausea Verified 12/06/23 19:35 guaifenesin (From Mucinex) Allergy Other Verified 12/06/23 19:35 latex Allergy Rash Verified 12/06/23 19:35 oseltamivir (From Tamiflu) Allergy Unknown Verified 12/06/23 19:35 risperidone (From Risperdal) Allergy Other Verified 12/06/23 19:35 strawberry Allergy Hives Verified 12/06/23 19:35 valdecoxib (From Bextra) Allergy Rash Verified 12/06/23 19:35 Family History Mother Asthma Father Heart disease Seizures Brother Seizures Sister Myocardial infarction Heart disease Seizures Grandmother Diabetes CVA (cerebral vascular accident) Social History Smoking Status: Never smoker alcohol intake: never substance use type: does not use caffeine: Yes Type: carbonated beverages ROS ROS ED ROS Narrative Denies recent illness. Constitutional Constitutional ED: Denies c (more content not included)... Normal [facility] ,Serum,hCG Quali.on 12-06-2023 HCG, SERUM QUAL Negative Normal [facility] Comment on above: Performed By: #### L 7400.3000, L506.1000, L503.0105, L500.4050, L501.9520, L801.1541, L801.1543, L3380.1400, L100.0100, L3310.0000, L506.0250 #### [facility] Laboratory [address] [place], [place], [id number] Urinalysis, Completeon 12-05 BACTERIA 0 SEEN Normal None Seen [facility] Comment on above: Order Comment: CLEAN CATCH Performed By: #### L 7400.3000, L506.1000, L503.0105, L500.4050, L501.9520, L801.1541, L801.1543, L3380.1400, L100.0100, L3310.0000, L506.0250 #### [facility] Laboratory [address] [place], [place], [phone] Mucus Ql (Urine sed) 0 SEEN Normal [facility] Comment on above: Order Comment: CLEAN CATCH Performed By: #### L 7400.3000, L506.1000, L503.0105, L500.4050, L501.9520, L801.1541, L801.1543, L3380.1400, L100.0100, L3310.0000, L506.0250 #### [facility] Laboratory [address] [place], [place], [id number] WBC 0 SEEN Normal 0-5 [facility] Comment on above: Order Comment: CLEAN CATCH Performed By: #### L 7400.3000, L506.1000, L503.0105, L500.4050, L501.9520, L801.1541, L801.1543, L3380.1400, L100.0100, L3310.0000, L506.0250 #### [facility] [address] [place], [place], [id number] Miscellaneous Lab Procedure 211-18-2023 [facility] LAB TEST 2 Normal [facility] Comment on above: Order Comment: [id number] LACOSAMIDE Result Comment: TEST RESULTS LIMITS Lacosamide, 16.5 High ug/mL 5.0-10.0 Limit of Detection 0.5 Mean plasma concentrations following maintenance dose 200 mg/day 4.99 +/- 2.51 ug/mL 400 mg/day 9.35 +/- 4.22 ug/mL 600 mg/day 12.46 +/- 5.60 ug/mL TESTING PERFORMED AT [facility]. ORIGINAL REPORT ON FILE IN LAB CONTAINS ADDITIONAL TEST SITE INFORMATION. Performed By: #### L 500.2500, L100.0500 #### [facility] Laboratory [address] [place], [address] 12 Lead EKG performed by [facility] on 11-12-2023 12 Lead EKG performed by [facility] [address] [place] [address] 12 Lead EKG performed by [facility] 11/12/23 105 MR#: [id number] Acct: [id number] Name: MARIA DEL ROSARIO LAWS Rep #: [id number] : 1980 43 From: Sabiha Raza Attending Dr: BRIDGETTE Brink Status: DEP AMB Ordering Dr: Sabiha Park Date: 10/19 09/10 Location: [facility] Sex: F C Admitted: [facility]/12 Lead EKG performed by [facility] ECG Report Interpretation -Sinus Rhythm WITHIN NORMAL LIMITSElectronically signed on 05/16/2024 at 10:[address] Fide Whyte Software Version [id number] 05/16/245 Date Sabiha ANGELES CC: Dr. Daniel Tan MD Date Dictated: 11/12/231050 Date Transcribed: 07/25/24 1051 Archives Director: LEO Signed Normal [facility] Cardiology Visit Reporton Cardiology Visit Report [facility] [address] [place], [place] [address] OFFICE VISIT Date of Service: 11/12/23 MR#: [id number] Acct: [id number] Name: MARIA DEL ROSARIO LAWS Rep #: [id number] : 1980 Provider: BRIDGETTE Slaughter Age/Sex: 43/F Location: [facility] Status: Signed HPI HPI History of Present Illness Details: Maria Del Rosario Gan is a 43-year-old female that presents here today for concerns over lower extremity edema. Patient has had a stress test done which showed possible anterior ischemia. Subsequently she has had coronary CT angiography done which showed essentially normal coronary arteries. Her coronary calcium score was 0. Intake Vital Signs 08/31/23 17:45 11/12/23 10:43 Height 5 ft 5 in 5 ft 5 in Weight: 316 lb BMI 52.5 BP 96/61 Blood Pressure Location Lt brachial Position Sitting Respiration 18 Pulse 75 Pulse Source Monitor Pulse Oximetry (%) 97 Oxygen Delivery Method room air Intake Visit Reasons: Edema/CP Accompanied by: Sister Is patient in pain?: No Allergies chlorpheniramine (From Vicks DayQuil) Allergy (Intermediate, Verified 11/12/23 10:43) seizure dextromethorphan (From Vicks DayQuil) Allergy (Intermediate, Verified 11/12/23 10:43) seizure phenylpropanolamine (From Vicks DayQuil) Allergy (Intermediate, Verified 11/12/23 10:43) seizure pseudoephedrine (From Vicks DayQuil) Allergy (Intermediate, Verified 11/12/23 10:43) seizure azithromycin (From Zithromax Z-Johnny) Allergy (Verified 11/12/23 10:43) Other cephalexin Allergy (Verified 11/12/23 10:43) Unknown doxycycline Allergy (Verified 11/12/23 10:43) Nausea guaifenesin (From Mucinex) Allergy (Verified 11/12/23 10:43) Other latex Allergy (Verified 11/12/23 10:43) Rash oseltamivir (From Tamiflu) Allergy (Verified 11/12/23 10:43) Unknown risperidone (From Risperdal) Allergy (Verified 11/12/23 10:43) Other strawberry Allergy (Verified 11/12/23 10:43) Hives valdecoxib (From Bextra) Allergy (Verified 11/12/23 10:43) Rash Medications ???Medication ???Instructions ???Recorded ???Confirmed ???Type cetirizine 10 mg tablet 10 mg PO DAILY 02/11/19 11/12/23 History iloperidone 4 mg tablet 4 mg PO QHS BIPOLAR 02/11/19 11/12/23 History lacosamide 200 mg tablet 400 mg PO BID SEIZURES 02/11/19 01/06/23 History multivitamin 1 tab PO DAILY 02/11/19 11/12/23 History topiramate 200 mg tablet (Topamax) 400 mg PO BID SEIZURES 02/11/19 11/12/23 History citalopram 20 mg tablet 20 mg PO DAILY 02/23/19 11/12/23 History albuterol sulfate 90 mcg/actuation 2 puff inhalation Q4H PRN PRN 05/07/19 11/12/23 Rx aerosol inhaler Wheezing ##1 ibuprofen 600 mg tablet 600 mg PO Q6H PRN PRN Pain 1-10 Or 06/16/20 01/06/23 Rx Fever #20 tabs benztropine 1 mg tablet 1 mg PO .COMPLEX 01/30/22 11/12/23 History montelukast 10 mg tablet 10 mg PO DAILY 01/30/22 11/12/23 History zonisamide 100 mg capsule 200 mg PO BID 01/30/22 11/12/23 History benzonatate 100 mg capsule 200 mg (2 x 100 mg) PO TID PRN 02/11/22 11/12/23 Rx cough #30 caps ibuprofen 200 mg capsule 200 mg PO Q6H PRN pain #30 caps 02/11/22 02/11/22 Rx benzonatate 100 mg capsule 100 mg PO TID #20 caps 08/31/23 11/12/23 Rx amoxicillin 875 mg-potassium 1 tab PO BID 11/12/23 11/12/23 History clavulanate 125 mg tablet cyclobenzaprine 10 mg tablet 10 mg PO TID 11/12/23 11/12/23 History fluticasone 250 mcg-salmeterol 50 1 ea inhalation BID 11/12/23 11/12/23 History mcg/dose blistr powdr for inhalation levetiracetam 500 mg tablet 1,000 mg PO BID 11/12/23 11/12/23 History levetiracetam 750 mg tablet 1,500 mg PO BID 11/12/23 11/12/23 History (Keppra) metoprolol succinate 25 mg 25 mg PO QDAY 11/12/23 11/12/23 History tablet,extended release 24 hr prednisone 20 mg tablet 20 mg PO BID 11/12/23 11/12/23 History Ejection fraction %: 60 [facility] Medical History (Updated 11/12/23 @ 11:13 by Sabiha Park PA, PA) Edema Abnormal stress test Acute bilateral otitis media Acute bronchitis Seizure PND (paroxysmal nocturnal dyspnea) Dyspnea on exertion Schizophrenia Chest pain PCOS (polycystic ovarian syndrome) Myalgia and myositis GERD (gastroesophageal reflux disease) Conversion disorder Chronic factitious illness with physical symptoms Adjustment disorder with depressed mood Generalized seizure disorder History of mental retardation History of asthma Family History Mother Asthma Father Heart disease Seizures Brother Seizures Sister Myocardial infarction Heart disease Seizures Grandmother Diabetes CVA (cerebral vascular accident) Social History Smoking Status: Never smoker alcohol intake: never substance use t (more content not included)... [facility] [place] LAB TEST Normal [facility] Comment on above: Order Comment: [id number] ZONASAMIDE Result Comment: TEST RESULTS LIMITS Zonisamide 18.8 ug/mL 10.0-40.0 Detection Limit = 2.0 TESTING PERFORMED AT [facility]. ORIGINAL REPORT ON FILE IN LAB CONTAINS ADDITIONAL TEST SITE INFORMATION. Performed By: #### L 500.2500, L100.0500 #### [facility] [address] [place], [address] XR Chest PA and Lateralon IMPRESSION: Central peribronchial cuffing which may be seen with small airways inflammation. Archives Director: MAGAN Transcribe Date/Time: Nov 10 2023 12:21P Dictated by : ALEXANDER RODRIGUEZ MD This examination was interpreted and the report reviewed and electronically signed by: ALEXANDER RODRIGUEZ MD on Nov 10 2023 12:30PM [facility] DIVISION OF RADIOLOGY * * *Final Report* * * DATE OF EXAM: Nov 10 2023 12:18PM WOX 5291 - XR CHEST 2V FRONTAL/LAT / PROCEDURE REASON: multiple diagnoses * * * * Physician Interpretation * * * * EXAMINATION: CHEST RADIOGRAPH (2 VIEW FRONTAL & LATERAL) CLINICAL HISTORY: Acute bronchitis Asthma with acute exacerbation, unspecified asthma severity, unspecified whether persistent MQ: XC2_6 EXAM DATE/TIME: 11/10/2023 12:18 PM COMPARISON: Chest x-ray dated 04/10/2022 RESULT: Lines, tubes, and devices: None. Lungs and pleura: Central peribronchial cuffing. No consolidation. No lung mass. No pleural effusion. No pneumothorax. Cardiomediastinal silhouette: Stable cardiomediastinal silhouette. Bones and soft tissues: Degenerative changes are present within the thoracic spine. Stable grade 1 anterolisthesis of a mid thoracic vertebral body. DIVISION OF RADIOLOGY Provider, [facility] - 11/10/2023 * * *Final Report* * * DATE OF EXAM: Nov 10 2023 12:18PM WOX 5291 - XR CHEST 2V FRONTAL/LAT / PROCEDURE REASON: multiple diagnoses * * * * Physician Interpretation * * * * EXAMINATION: CHEST RADIOGRAPH (2 VIEW FRONTAL & LATERAL) CLINICAL HISTORY: Acute bronchitis Asthma with acute exacerbation, unspecified asthma severity, unspecified whether persistent MQ: XC2_6 EXAM DATE/TIME: 11/10/2023 12:18 PM COMPARISON: Chest x-ray dated 04/10/2022 RESULT: Lines, tubes, and devices: None. Lungs and pleura: Central peribronchial cuffing. No consolidation. No lung mass. No pleural effusion. No pneumothorax. Cardiomediastinal silhouette: Stable cardiomediastinal silhouette. Bones and soft tissues: Degenerative changes are present within the thoracic spine. Stable grade 1 anterolisthesis of a mid thoracic vertebral body. IMPRESSION IMPRESSION: Central peribronchial cuffing which may be seen with small airways inflammation. Archives Director: MAGAN Transcribe Date/Time: Nov 10 2023 12:21P Dictated by : ALEXANDER RODRIGUEZ MD This examination was interpreted and the report reviewed and electronically signed by: ALEXANDER RODRIGUEZ MD on Nov 10 2023 12:30PM [facility] Radiology Study observation (narrative) Deangelo cheung [facility] XR Chest PA and LateralOrder ed By: [facility] Provider on 11-10-2023 [facility] Methylmalonic Acid [place] METHYLMAL ACID 104 nmol/L Normal 0-378 [facility] Comment on above: Order Comment: Test( s) [id number] Acid, Serumwas developed and its performance characteristicsdetermined by [facility] ([facility]). It has not been cleared or approvedby the Food and Drug Administration. Result Comment: Perf ormed at: - [address] [id number] Telephone Ad Taker: Dora Marshall MD, Phone: [phone] AMENDED REPORT 11/09/232106 METHYLM [id number] previously reported as: TEST RESULTS LIMITS Methylmalonic Acid, Serum, 104 nmol/L 0-378 TESTING PERFORMED AT [facility]. ORIGINAL REPORT ON FILE IN LAB CONTAINS ADDITIONAL TEST SITE INFORMATION. Performed By: #### L 500.2500, L100.0500 #### [facility] Laboratory [address] [place], [place], [address] KEPPRA (LEVETIRACETAM)on KEPPRA 31.3 ug/mL Normal 10.0-40.0 [facility] Comment on above: Result Comment: Perf ormed at: [facility] [id number] Telephone Ad Taker: Dora Marshall MD, Phone: [phone] Performed By: #### L 7400.3000, L506.1000, L503.0105, L500.4050, L501.9520, L801.1541, L801.1543, L3380.1400, L100.0100, L3310.0000, L506.0250 #### [facility] Laboratory [address] [place], [place], [id number] Topiramate, Serumon 11-06-19 TOPIRAMATE 19.4 ug/mL Normal 2.0-25.0 [facility] Comment on above: Result Comment: Dete ction Limit = 1.5 Performed By: #### L 7400.3000, L506.1000, L503.0105, L500.4050, L501.9520, L801.1541, L801.1543, L3380.1400, L100.0100, L3310.0000, L506.0250 #### [facility] Laboratory [address] [place], [place], [address] CBC W/Diff, Automatedon 10-18 Absolute Lymph 2.02 X10 3/uL Normal 0.83-4.51 [facility] Comment on above: Performed By: #### L 7400.3000, L506.1000, L503.0105, L500.4050, L501.9520, L801.1541, L801.1543, L3380.1400, L100.0100, L3310.0000, L506.0250 #### [facility] Laboratory [address] [place], [address] Absolute Neut 5.8 X10 3/uL Normal 2.0-7.7 [facility] Comment on above: Performed By: #### L 7400.3000, L506.1000, L503.0105, L500.4050, L501.9520, L801.1541, L801.1543, L3380.1400, L100.0100, L3310.0000, L506.0250 #### [facility] Laboratory [address] [place], [address] (283) Basophils/100 WBC (Bld) 0.0 % Normal 0-1 [facility] Comment on above: Performed By: #### L 7400.3000, L506.1000, L503.0105, L500.4050, L501.9520, L801.1541, L801.1543, L3380.1400, L100.0100, L3310.0000, L506.0250 #### [facility] Laboratory [address] [place], [place], [phone] ([phone] Eosinophils/100 WBC (Bld) 0.0 % Normal 0-5 [facility] Comment on above: Performed By: #### L 7400.3000, L506.1000, L503.0105, L500.4050, L501.9520, L801.1541, L801.1543, L3380.1400, L100.0100, L3310.0000, L506.0250 #### [facility] Laboratory [address] [place], [address] ([address] Erythrocyte distribution width (RBC) [Ratio] 13.2 % Normal 11.6-14.6 [facility] Comment on above: Performed By: #### L 7400.3000, L506.1000, L503.0105, L500.4050, L501.9520, L801.1541, L801.1543, L3380.1400, L100.0100, L3310.0000, L506.0250 #### [facility] Laboratory [address] [place], [address] Hematocrit (Bld) [Volume fraction] 41.8 % Normal 37-47 [facility] Comment on above: Performed By: #### L 7400.3000, L506.1000, L503.0105, L500.4050, L501.9520, L801.1541, L801.1543, L3380.1400, L100.0100, L3310.0000, L506.0250 #### [facility] Laboratory [address] [place], [address] Hemoglobin (Bld) [Mass/Vol] 13.5 g/dL Normal 12.0-15.0 [facility] Comment on above: Performed By: #### L 7400.3000, L506.1000, L503.0105, L500.4050, L501.9520, L801.1541, L801.1543, L3380.1400, L100.0100, L3310.0000, L506.0250 #### [facility] Laboratory [address] [place], [address] IG% 0.400 Normal 0.0-0.9 [facility] Comment on above: Result Comment: IG% - Immature Granulocytes (promyelocytes, myelocytes and metamyelocytes) > 1% indicates that a LEFT SHIFT is Present. Performed By: #### L 7400.3000, L506.1000, L503.0105, L500.4050, L501.9520, L801.1541, L801.1543, L3380.1400, L100.0100, L3310.0000, L506.0250 #### [facility] Laboratory [address] [place], [address] Lymphocytes/100 WBC (Bld) 23.7 % Normal 19-41 [facility] Comment on above: Performed By: #### L 7400.3000, L506.1000, L503.0105, L500.4050, L501.9520, L801.1541, L801.1543, L3380.1400, L100.0100, L3310.0000, L506.0250 #### [facility] Laboratory [address] [place], [address] MCH (RBC) [Entitic mass] 29.8 pg Normal 27.0-32.0 [facility] Comment on above: Performed By: #### L 7400.3000, L506.1000, L503.0105, L500.4050, L501.9520, L801.1541, L801.1543, L3380.1400, L100.0100, L3310.0000, L506.0250 #### [facility] Laboratory [address] [place], [address] MCHC (RBC) [Mass/Vol] 32.3 g/dL Normal 32-36 [facility] Comment on above: Performed By: #### L 7400.3000, L506.1000, L503.0105, L500.4050, L501.9520, L801.1541, L801.1543, L3380.1400, L100.0100, L3310.0000, L506.0250 #### [facility] Laboratory [address] [place], [address] MCV (RBC) [Entitic vol] 92.3 fL Normal 81-99 [facility] Comment on above: Performed By: #### L 7400.3000, L506.1000, L503.0105, L500.4050, L501.9520, L801.1541, L801.1543, L3380.1400, L100.0100, L3310.0000, L506.0250 #### [facility] Laboratory [address] [place], [address] Monocytes/100 WBC (Bld) 7.7 % Normal 0-10 [facility] Comment on above: Performed By: #### L 7400.3000, L506.1000, L503.0105, L500.4050, L501.9520, L801.1541, L801.1543, L3380.1400, L100.0100, L3310.0000, L506.0250 #### [facility] Laboratory [address] [place], [address] Neutrophils/100 WBC (Bld) 68.2 % Normal 47-70 [facility] Comment on above: Performed By: #### L 7400.3000, L506.1000, L503.0105, L500.4050, L501.9520, L801.1541, L801.1543, L3380.1400, L100.0100, L3310.0000, L506.0250 #### [facility] Laboratory [address] [place], [address] Nucleated RBC (Bld) [#/Vol] 0 10*3/uL Normal 0-5 [facility] Comment on above: Performed By: #### L 7400.3000, L506.1000, L503.0105, L500.4050, L501.9520, L801.1541, L801.1543, L3380.1400, L100.0100, L3310.0000, L506.0250 #### [facility] Laboratory [address] [place], [address] Platelet mean volume (Bld) [Entitic vol] 10.0 fL Normal 6.2-12.0 [facility] Comment on above: Performed By: #### L 7400.3000, L506.1000, L503.0105, L500.4050, L501.9520, L801.1541, L801.1543, L3380.1400, L100.0100, L3310.0000, L506.0250 #### [facility] Laboratory [address] [place], [address] Platelets (Bld) [#/Vol] 260 10*3/uL Normal 150-450 [facility] Comment on above: Performed By: #### L 7400.3000, L506.1000, L503.0105, L500.4050, L501.9520, L801.1541, L801.1543, L3380.1400, L100.0100, L3310.0000, L506.0250 #### [facility] Laboratory [address] [place], [address] RBC (Bld) [#/Vol] 4.53 10*6/uL Normal 4.2-5.4 [facility] Comment on above: Performed By: #### L 7400.3000, L506.1000, L503.0105, L500.4050, L501.9520, L801.1541, L801.1543, L3380.1400, L100.0100, L3310.0000, L506.0250 #### [facility] Laboratory [address] [place], [address] RDW SD 44.8 fl High 35.1-43.9 [facility] Comment on above: Performed By: #### L 7400.3000, L506.1000, L503.0105, L500.4050, L501.9520, L801.1541, L801.1543, L3380.1400, L100.0100, L3310.0000, L506.0250 #### [facility] Laboratory [address] [place], [address] WBC (Bld) [#/Vol] 8.5 10*3/uL Normal 4.4-11.0 [facility] Comment on above: Performed By: #### L 7400.3000, L506.1000, L503.0105, L500.4050, L501.9520, L801.1541, L801.1543, L3380.1400, L100.0100, L3310.0000, L506.0250 #### [facility] Laboratory [address] [place], [address] Comprehensive Metabolic Prof ilon 11-03-2023 Albumin [Mass/Vol] 3.0 g/dL Low 3.2-5.0 [facility] Comment on above: Order Comment: N Performed By: #### L 7400.3000, L506.1000, L503.0105, L500.4050, L501.9520, L801.1541, L801.1543, L3380.1400, L100.0100, L3310.0000, L506.0250 #### [facility] Laboratory [address] [place], [place], [phone] Albumin/Globulin [Mass ratio] 0.7 {ratio} Low 0.9-2.4 [facility] Comment on above: Order Comment: N Performed By: #### L 7400.3000, L506.1000, L503.0105, L500.4050, L501.9520, L801.1541, L801.1543, L3380.1400, L100.0100, L3310.0000, L506.0250 #### [facility] Laboratory [address] [place], [address] ALK P 101 U/L Normal 45-117 [facility] Comment on above: Order Comment: N Performed By: #### L 7400.3000, L506.1000, L503.0105, L500.4050, L501.9520, L801.1541, L801.1543, L3380.1400, L100.0100, L3310.0000, L506.0250 #### [facility] Laboratory [address] [place], [place], [phone] ALT [Catalytic activity/Vol] 19 U/L Normal 13-56 [facility] Comment on above: Order Comment: N Performed By: #### L 7400.3000, L506.1000, L503.0105, L500.4050, L501.9520, L801.1541, L801.1543, L3380.1400, L100.0100, L3310.0000, L506.0250 #### [facility] Laboratory [address] [place], [place], [phone] (817) AST [Catalytic activity/Vol] 11 U/L Low 15-37 [facility] Comment on above: Order Comment: N Performed By: #### L 7400.3000, L506.1000, L503.0105, L500.4050, L501.9520, L801.1541, L801.1543, L3380.1400, L100.0100, L3310.0000, L506.0250 #### [facility] Laboratory [address] [place], [place], [phone] (170) Bilirubin [Mass/Vol] 0.20 mg/dL Normal 0.20-1.00 [facility] Comment on above: Order Comment: N Result Comment: For patients on eltrombopag therapy, use of Dimension [place] TBIL is not recommended. Performed By: #### L 7400.3000, L506.1000, L503.0105, L500.4050, L501.9520, L801.1541, L801.1543, L3380.1400, L100.0100, L3310.0000, L506.0250 #### [facility] Laboratory [address] [place], [place], [phone] (454) BUN/CRE 8.7 RATIO Low 10-20 [facility] Comment on above: Order Comment: N Performed By: #### L 7400.3000, L506.1000, L503.0105, L500.4050, L501.9520, L801.1541, L801.1543, L3380.1400, L100.0100, L3310.0000, L506.0250 #### [facility] Laboratory [address] [place], [address] CA,Total 8.7 mg/dL Normal 8.5-10.1 [facility] Comment on above: Order Comment: N Performed By: #### L 7400.3000, L506.1000, L503.0105, L500.4050, L501.9520, L801.1541, L801.1543, L3380.1400, L100.0100, L3310.0000, L506.0250 #### [facility] Laboratory [address] [place], [address] Chloride [Moles/Vol] 113 mmol/L High 98-107 [facility] Comment on above: Order Comment: N Performed By: #### L 7400.3000, L506.1000, L503.0105, L500.4050, L501.9520, L801.1541, L801.1543, L3380.1400, L100.0100, L3310.0000, L506.0250 #### [facility] Laboratory [address] [place], [address] CO2 [Moles/Vol] 21.0 mmol/L Normal 21.0-32.0 [facility] Comment on above: Order Comment: N Performed By: #### L 7400.3000, L506.1000, L503.0105, L500.4050, L501.9520, L801.1541, L801.1543, L3380.1400, L100.0100, L3310.0000, L506.0250 #### [facility] Laboratory [address] [place], [address] Creatinine [Mass/Vol] 0.92 mg/dL Normal 0.55-1.02 [facility] Comment on above: Order Comment: N Result Comment: The validity of the calculated GFR GFRAA in patients over 70 years has not been determined. Clinical correlation is essential. Performed By: #### L 7400.3000, L506.1000, L503.0105, L500.4050, L501.9520, L801.1541, L801.1543, L3380.1400, L100.0100, L3310.0000, L506.0250 #### [facility] Laboratory [address] [place], [place], [phone] EST GFR - AA 87 mL/min Normal >60 [facility] Comment on above: Order Comment: N Result Comment: Afri can Taiwanese GFR Calc Performed By: #### L 7400.3000, L506.1000, L503.0105, L500.4050, L501.9520, L801.1541, L801.1543, L3380.1400, L100.0100, L3310.0000, L506.0250 #### [facility] Laboratory [address] [place], [place], [phone] GAP 6 Normal 5-15 [facility] Comment on above: Order Comment: N Performed By: #### L 7400.3000, L506.1000, L503.0105, L500.4050, L501.9520, L801.1541, L801.1543, L3380.1400, L100.0100, L3310.0000, L506.0250 #### [facility] Laboratory [address] [place], [place], [phone] GFR/1.73 sq M.predicted among non-blacks MDRD (S/P/Bld) [Vol rate/Area] 72 mL/min/{1.73_m2} Normal >60 [facility] Comment on above: Order Comment: N Result Comment: Non- GFR Calc Performed By: #### L 7400.3000, L506.1000, L503.0105, L500.4050, L501.9520, L801.1541, L801.1543, L3380.1400, L100.0100, L3310.0000, L506.0250 #### [facility] [address] [place], [address] Globulin (S) [Mass/Vol] 4.4 g/dL High 2.2-4.2 [facility] Comment on above: Order Comment: N Performed By: #### L 7400.3000, L506.1000, L503.0105, L500.4050, L501.9520, L801.1541, L801.1543, L3380.1400, L100.0100, L3310.0000, L506.0250 #### [facility] [address] [place], [address] Glucose [Mass/Vol] 87 mg/dL Normal 74-106 [facility] Comment on above: Order Comment: N Performed By: #### L 7400.3000, L506.1000, L503.0105, L500.4050, L501.9520, L801.1541, L801.1543, L3380.1400, L100.0100, L3310.0000, L506.0250 #### [facility] [address] [place], [address] Potassium [Moles/Vol] 3.7 mmol/L Normal 3.5-5.1 [facility] Comment on above: Order Comment: N Performed By: #### L 7400.3000, L506.1000, L503.0105, L500.4050, L501.9520, L801.1541, L801.1543, L3380.1400, L100.0100, L3310.0000, L506.0250 #### [facility] [address] [place], [address] Sodium [Moles/Vol] 140 mmol/L Normal 136-145 [facility] Comment on above: Order Comment: N Performed By: #### L 7400.3000, L506.1000, L503.0105, L500.4050, L501.9520, L801.1541, L801.1543, L3380.1400, L100.0100, L3310.0000, L506.0250 #### [facility] [address] [place], [address] T PROT 7.4 g/dL Normal 6.4-8.2 [facility] Comment on above: Order Comment: N Performed By: #### L 7400.3000, L506.1000, L503.0105, L500.4050, L501.9520, L801.1541, L801.1543, L3380.1400, L100.0100, L3310.0000, L506.0250 #### [facility] [address] [place], [address] Urea nitrogen [Mass/Vol] 8 mg/dL Normal 7-18 [facility] Comment on above: Order Comment: N Performed By: #### L 7400.3000, L506.1000, L503.0105, L500.4050, L501.9520, L801.1541, L801.1543, L3380.1400, L100.0100, L3310.0000, L506.0250 #### [facility] [address] [facility] [place], [address] Folates, (Folic Acid)on 10-18 FOLATES 16.10 ng/mL Normal 3.1-55.4 [facility] Comment on above: Order Comment: N Performed By: #### L 7400.3000, L506.1000, L503.0105, L500.4050, L501.9520, L801.1541, L801.1543, L3380.1400, L100.0100, L3310.0000, L506.0250 #### [facility] [address] [place], [place], [id number] (808) Thyroid Stim Hormone (TSH)on 11-03-2023 TSH 3.21 uIU/mL Normal 0.358-3.74 [facility] Comment on above: Order Comment: N Performed By: #### L 7400.3000, L506.1000, L503.0105, L500.4050, L501.9520, L801.1541, L801.1543, L3380.1400, L100.0100, L3310.0000, L506.0250 #### [facility] [address] [place], [address] Vitamin B12on 11-03-2023 Cobalamin (Vitamin B12) [Mass/Vol] 314 pg/mL Normal 211-911 [facility] Comment on above: Performed By: #### L 7400.3000, L506.1000, L503.0105, L500.4050, L501.9520, L801.1541, L801.1543, L3380.1400, L100.0100, L3310.0000, L506.0250 #### [facility] Laboratory [address] [place], [place], [id number] Vitamin D,25 Hydroxyon 11-02 Vitamin D 25-OH 23.0 ng/mL Normal [facility] Comment on above: Result Comment: Elsie min D 25(OH) Status Range Deficiency <20 ng/mL (50nmol/L) Insufficiency 20 - 30 ng/mL (50 - 75 nmol/L) Sufficiency 30 - 100 ng/mL (75 - 250 nmol/L) Toxicity >100 ng/mL (>250 nmol/L) Performed By: #### L 7400.3000, L506.1000, L503.0105, L500.4050, L501.9520, L801.1541, L801.1543, L3380.1400, L100.0100, L3310.0000, L506.0250 #### [facility] Laboratory [address] [place], [address] XR Chest PA and Lateralon IMPRESSION: No acute radiographic abnormality. Archives Director: MAGAN Transcribe Date/Time: Sep 23 2023 2:26P Dictated by : ALEXANDER RODRIGUEZ MD This examination was interpreted and the report reviewed and electronically signed by: ALEXANDER RODRIGUEZ MD on Sep 23 2023 2:26PM [facility] DIVISION OF RADIOLOGY * * *Final Report* * * DATE OF EXAM: Sep 23 2023 2:16PM WOX 5291 - XR CHEST 2V FRONTAL/LAT / PROCEDURE REASON: Acute cough * * * * Physician Interpretation * * * * EXAMINATION: CHEST RADIOGRAPH (2 VIEW FRONTAL & LATERAL) CLINICAL HISTORY: Acute cough MQ: XC2_6 EXAM DATE/TIME: 09/23/2023 2:16 PM COMPARISON: Chest x-ray dated April 10, 2022 RESULT: Lines, tubes, and devices: None. Lungs and pleura: No consolidation. No lung mass. No pleural effusion. No pneumothorax. Cardiomediastinal silhouette: Stable cardiomediastinal silhouette. Bones and soft tissues: Unremarkable. DIVISION OF RADIOLOGY Provider, Beba Sara [facility] - 09/23/2023 * * *Final Report* * * DATE OF EXAM: Sep 23 2023 2:16PM WOX 5291 - XR CHEST 2V FRONTAL/LAT / PROCEDURE REASON: Acute cough * * * * Physician Interpretation * * * * EXAMINATION: CHEST RADIOGRAPH (2 VIEW FRONTAL & LATERAL) CLINICAL HISTORY: Acute cough MQ: XC2_6 EXAM DATE/TIME: 09/23/2023 2:16 PM COMPARISON: Chest x-ray dated April 10, 2022 RESULT: Lines, tubes, and devices: None. Lungs and pleura: No consolidation. No lung mass. No pleural effusion. No pneumothorax. Cardiomediastinal silhouette: Stable cardiomediastinal silhouette. Bones and soft tissues: Unremarkable. IMPRESSION IMPRESSION: No acute radiographic abnormality. Archives Director: MAGAN Transcribe Date/Time: Sep 23 2023 2:26P Dictated by : ALEXANDER RODRIGUEZ MD This examination was interpreted and the report reviewed and electronically signed by: ALEXANDER RODRIGUEZ MD on Sep 23 2023 2:26PM [facility] Radiology Study observation (narrative) Deangelo cheung [facility] XR Chest PA and LateralOrder ed By: Cc Provider on 09-23-2023 [facility] Basophil percentageOrdered B y: Cresencio Tran on 08-31-2023 Basophil percentage 0-5 SEEN /hpf 0-5 [facility] Bilirubin Test strip Ql (U)O rdered By: Cresencio Tran on 08-31-2023 Bilirubin Ql (U) Negative Negative [facility] Ketones Test strip Ql (U)Ord ered By: Cresencio Tran on 08-31-2023 Ketones Ql (U) Negative Negative [facility] Laboratory - Chemistry and C hemistry - challengeOrdered By: Cresencio Tran on 08-31-2023 HCG ( test) Ql (U) Negative [facility] Comment on above: Very dilute urine sp ecimens, as indicated by a low specificgravity, may not contain self pay representative levels of hCG. If is still suspected, a first morning urinespecimen should be collected 48 hours later and tested. Mucus LM Ql (Urine sed)Order ed By: Cresencio Tran on 08-31-2023 Mucus Ql (Urine sed) 0 SEEN /hpf [facility] Nitrite Test strip Ql (U)Ord ered By: Cresencio Tran on 08-31-2023 Nitrite Ql (U) Negative Negative [facility] No Panel InformationOrdered By: Cresencio Tran on 08-31-2023 Urine RBC 0 SEEN /hpf 0-5 [facility] Protein Test strip Ql (U)Ord ered By: Cresencio Tran on 08-31-2023 Protein Ql (U) Negative Negative [facility] Squamous epithelial cells de tection in urine sediment by light microscopyOrdered By: Cresencio Tran on 08-31-2023 Epithelial cells.squamous LM Ql (Urine sed) 0-5 SEEN /hpf 5-10 [facility] Urine blood detectionOrdered By: Cresencio Tran on 08-31-2023 RBC Ql (U) Negative Negative [facility] Urine clarityOrdered By: Yelitza Tran on 08-31-2023 Clarity (U) Clear Clear [facility] Urine color determinationOrd ered By: Cresencio Tran on 08-31-2023 Color (U) Yellow Yellow [facility] Urine glucose detectionOrder ed By: Cresencio Tran on 08-31-2023 Glucose Ql (U) Normal mg/dl Normal [facility] Urine leukocyte esterase det ection by dipstickOrdered By: Cresencio Tran on 08-31-2023 Leukocyte esterase Test strip Ql (U) 100 /ul Negative [facility] Urine pHOrdered By: Cresencio hart on 08-31-2023 pH (U) 7.0 [pH] 5.0 - 8.0 [facility] Urine sediment bacteria coun t by microscopy (number/high power field)Ordered By: Cresencio Tran on 08-31-2023 Bacteria LM.HPF (Urine sed) [#/Area] 0 /[HPF] None Seen [facility] Urine sediment yeast count b y microscopy (number/high powered field)Ordered By: Cresencio Tran on 08-31-2023 Yeast LM.HPF (Urine sed) [#/Area] RARE /hpf None Seen [facility] Urine specific gravity measu rementOrdered By: Cresencio Tran on 08-31-2023 Specific gravity (U) [Rel density] 1.005 1.002-1.03 0 [facility] Urine urobilinogen measureme ntOrdered By: Cresencio Tran on 08-31-2023 Urobilinogen Ql (U) Normal mg/dl Normal [facility] Absolute lymphocyte countOrd ered By: Kevin Montero on 07-08-2023 Lymphocytes Auto (Unsp spec) [#/Vol] 1.79 10*3/uL 0.83-4.51 [facility] Automated lymphocyte count a s percentage of total leukocytesOrdered By: Kevin Montero on 07-08-2023 Lymphocytes/100 WBC Auto (Unsp spec) 16.9 % 19-41 [facility] Basophil percentageOrdered B y: Kevin Montero on 07-08-2023 Basophils/100 WBC (Bld) 0.2 % 0-1 [facility] Bilirubin [Mass/Vol] 0.30 mg/dL 0.20-1.00 [facility] Comment on above: For patients on eltr ombopag therapy, use of Dimension [place] TBIL is not recommended. Chloride [Moles/Vol] 114 mmol/L 98-107 [facility] Eosinophils/100 WBC (Bld) 0.0 % 0-5 [facility] Glucose [Mass/Vol] 95 mg/dL 74-106 [facility] Hemoglobin (Bld) [Mass/Vol] 13.6 g/dL 12.0-15.0 [facility] Monocytes/100 WBC (Bld) 8.5 % 0-10 [facility] Neutrophils (Bld) [#/Vol] 7.8 10*3/uL 2.0-7.7 [facility] Neutrophils/100 WBC (Bld) 73.9 % 47-70 [facility] Potassium [Moles/Vol] 3.9 mmol/L 3.5-5.1 [facility] Protein [Mass/Vol] 7.1 g/dL 6.4-8.2 [facility] Sodium [Moles/Vol] 140 mmol/L 136-145 [facility] WBC (Bld) [#/Vol] 10.6 10*3/uL 4.4-11.0 [facility] Determination of erythrocyte mean corpuscular volume (MCV)Ordered By: Kevin Montero on 07-08-2023 MCV (RBC) [Entitic vol] 92.4 fL 81-99 [facility] Erythrocyte distribution wid th ratioOrdered By: Kevin Montero on 07-08-2023 Erythrocyte distribution width (RBC) [Ratio] 13.3 % 11.6-14.6 [facility] Erythrocyte distribution wid th standard deviationOrdered By: Kevin Montero on 07-08-2023 Erythrocyte distribution width (RBC) [Entitic vol] 45.5 fL 35.1-43.9 [facility] Hematocrit Auto (Bld) [Volum e fraction]Ordered By: Kevin Montero on 07-08-2023 Hematocrit (Bld) [Volume fraction] 43.5 % 37-47 [facility] Immature granulocytes/100 WB C Auto (Bld)Ordered By: Kevin Montero on 07-08-2023 Immature granulocytes/100 WBC (Bld) 0.500 % 0.0-0.9 [facility] Comment on above: IG% - Immature Granu locytes (promyelocytes, myelocytes and metamyelocytes) > 1% indicates that a LEFT SHIFT is Present. Laboratory - Chemistry and C hemistry - challengeOrdered By: Kevin Montero on 07-08-2023 Albumin/Globulin [Mass ratio] 0.8 {ratio} 0.9-2.4 [facility] ALP [Catalytic activity/Vol] 95 U/L 45-117 [facility] ALT [Catalytic activity/Vol] 18 U/L 13-56 [facility] CO2 [Moles/Vol] 20.0 mmol/L 21.0-32.0 [facility] Globulin (S) [Mass/Vol] 3.9 g/dL 2.2-4.2 [facility] Urea nitrogen/Creatinine [Mass ratio] 8.4 mg/mg 10-20 [facility] Laboratory - Hematology and Cell countsOrdered By: Kevinbenjamín Montero on 07-08-2023 MCH (RBC) [Entitic mass] 28.9 pg 27.0-32.0 [facility] MCHC (RBC) [Mass/Vol] 31.3 g/dL 32-36 [facility] Nucleated RBC/100 WBC (Bld) [Ratio] 0 % 0-5 [facility] Platelet mean volume (Bld) [Entitic vol] 10.0 fL 6.2-12.0 [facility] Platelets (Bld) [#/Vol] 272 10*3/uL 150-450 [facility] No Panel InformationOrdered By: Kevin Montero on 07-08-2023 Estimated Creatinine Clearance Calc 117.01 ml/min [facility] Estimated GFR (MDRD) Amer 83 mL/min >60 [facility] Comment on above: GFR Calc Estimated GFR (MDRD) Non-Af Amer 69 mL/min >60 [facility] Comment on above: Non- GFR Calc Valproic Acid (Depakene) Level < 3 ug/mL 50-100 [facility] RBC Auto (Bld) [#/Vol]Ordere d By: Kevin Montero on 07-08-2023 RBC (Bld) [#/Vol] 4.71 10*6/uL 4.2-5.4 [facility] Serum or plasma calcium caryl urement (mass/volume)Ordered By: Kevin Montero on 07-08-2023 Calcium [Mass/Vol] 8.8 mg/dL 8.5-10.1 [facility] Serum or plasma creatinine m easurement (mass/volume)Ordered By: Kevin Montero on 07-08-2023 Creatinine [Mass/Vol] 0.95 mg/dL 0.55-1.02 [facility] Comment on above: The validity of the calculated GFR & GFRAA in patients over 70 years has not been determined. Clinical correlation is essential. Serum or plasma urea nitroge n measurement (mass/volume)Ordered By: Kevin Montero on 07-08-2023 Urea nitrogen [Mass/Vol] 8 mg/dL 7-18 [facility] Thin prep Papanicolaou smear with manual screeningOrdered By: Kevinbenjamín Montero on 07-08-2023 Thin prep Papanicolaou smear with manual screening 3.2 g/dL 3.2-5.0 [facility] Thin prep Papanicolaou smear with manual screening 18 U/L 15-37 [facility] Thin prep Papanicolaou smear with manual screening 6 5-15 [facility] No Panel InformationOrdered By: Lamberto Burris on 06-05-2023 Levetiracetam (Keppra) Level 28.7 ug/mL 10.0-40.0 [facility] Comment on above: Performed at: [address] [id number] Director: Dora Marshall MD, Phone: [phone] Miscellaneous Test See comment [facility] Comment on above: TEST RESULTS LIMITSZ onisamide(Zonegran), SerumZonisamide 18.7 ug/mL 10.0-40.0 Detection Limit = 2.0 [facility] ORIGINAL REPORT ON FILE IN LAB CONTAINS ADDITIONAL TEST SITE INFORMATION. Serum or plasma topiramate m easurement (mass/volume)Ordered By: Lamberto Burris on 06-05-2023 Topiramate [Mass/Vol] 19.0 ug/mL 2.0-25.0 [facility] Comment on above: Detection Limit = 1. 5 Absolute lymphocyte countOrd ered By: Justine Trinidad on 05-14-2023 Lymphocytes Auto (Unsp spec) [#/Vol] 2.08 10*3/uL 0.83-4.51 [facility] Automated lymphocyte count a s percentage of total leukocytesOrdered By: Justine Trinidad on 05-14-2023 Lymphocytes/100 WBC Auto (Unsp spec) 19.4 % 19-41 [facility] Basophil percentageOrdered B y: Justine Trinidad on 05-14-2023 Basophils/100 WBC (Bld) 0.1 % 0-1 [facility] Chloride [Moles/Vol] 110 mmol/L 98-107 [facility] Eosinophils/100 WBC (Bld) 0.0 % 0-5 [facility] Glucose [Mass/Vol] 99 mg/dL 74-106 [facility] Hemoglobin (Bld) [Mass/Vol] 14.2 g/dL 12.0-15.0 [facility] Monocytes/100 WBC (Bld) 8.3 % 0-10 [facility] Neutrophils (Bld) [#/Vol] 7.7 10*3/uL 2.0-7.7 [facility] Neutrophils/100 WBC (Bld) 71.7 % 47-70 [facility] Potassium [Moles/Vol] 3.8 mmol/L 3.5-5.1 [facility] Sodium [Moles/Vol] 139 mmol/L 136-145 [facility] WBC (Bld) [#/Vol] 10.7 10*3/uL 4.4-11.0 [facility] Determination of erythrocyte mean corpuscular volume (MCV)Ordered By: Justine Trinidad on 05-14-2023 MCV (RBC) [Entitic vol] 93.7 fL 81-99 [facility] Erythrocyte distribution wid th ratioOrdered By: Justine Trinidad on 05-14-2023 Erythrocyte distribution width (RBC) [Ratio] 13.1 % 11.6-14.6 [facility] Erythrocyte distribution wid th standard deviationOrdered By: Justine Trinidad on 05-14-2023 Erythrocyte distribution width (RBC) [Entitic vol] 44.9 fL 35.1-43.9 [facility] Hematocrit Auto (Bld) [Volum e fraction]Ordered By: Justine Trinidad on 05-14-2023 Hematocrit (Bld) [Volume fraction] 46.1 % 37-47 [facility] Immature granulocytes/100 WB C Auto (Bld)Ordered By: Justine Trinidad on 05-14-2023 Immature granulocytes/100 WBC (Bld) 0.500 % 0.0-0.9 [facility] Comment on above: IG% - Immature Granu locytes (promyelocytes, myelocytes and metamyelocytes) > 1% indicates that a LEFT SHIFT is Present. Laboratory - Chemistry and C hemistry - challengeOrdered By: Justine Trinidad on 05-14-2023 CO2 [Moles/Vol] 24.0 mmol/L 21.0-32.0 [facility] Urea nitrogen/Creatinine [Mass ratio] 9.4 mg/mg 10-20 [facility] Laboratory - Hematology and Cell countsOrdered By: Justine Trinidad on 05-14-2023 MCH (RBC) [Entitic mass] 28.9 pg 27.0-32.0 [facility] MCHC (RBC) [Mass/Vol] 30.8 g/dL 32-36 [facility] Nucleated RBC/100 WBC (Bld) [Ratio] 0 % 0-5 [facility] Platelets (Bld) [#/Vol] 264 10*3/uL 150-450 [facility] Laboratory - Microbiology an d Antimicrobial susceptibilityOrdered By: Justine Trinidad on 05-14-2023 SARS-CoV-2 (COVID-19) RNA MINDI+probe Ql (Unsp spec) [facility] SARS-CoV-2 (COVID-19) RNA MINDI+probe Ql (Unsp spec) [facility] No Panel InformationOrdered By: Justine Trinidad on 05-14-2023 Troponin I High Sensitivity 4 pg/mL 3.0-54.0 [facility] Comment on above: Please Note: New Billie t Units and Gender Specific Reference Ranges. For more information see Policy Stat Procedure [place] High Sensitivity Troponin (TNIH) and attachments. D-Dimer Quantitative (PE/DVT) 0.35 FEU/ug/m 0.27-0.49 [facility] Comment on above: NORMAL D-Dimer level (<0.50) indicates no DVT or PE. Estimated GFR (MDRD) Amer 83 mL/min >60 [facility] Comment on above: GFR Calc Estimated GFR (MDRD) Non-Af Amer 69 mL/min >60 [facility] Comment on above: Non- GFR Calc Platelet mean volume Chadwick-Ec ker (Bld) [Entitic vol]Ordered By: Justine Trinidad on 05-14-2023 Platelet mean volume (Bld) [Entitic vol] 9.9 fL 6.2-12.0 [facility] RBC Auto (Bld) [#/Vol]Ordere d By: Justine Trinidad on 05-14-2023 RBC (Bld) [#/Vol] 4.92 10*6/uL 4.2-5.4 [facility] Serum or plasma calcium caryl urement (mass/volume)Ordered By: Justine Trinidad on 05-14-2023 Calcium [Mass/Vol] 9.4 mg/dL 8.5-10.1 [facility] Serum or plasma creatinine m easurement (mass/volume)Ordered By: Justine Trinidad on 05-14-2023 Creatinine [Mass/Vol] 0.95 mg/dL 0.55-1.02 [facility] Comment on above: The validity of the calculated GFR & GFRAA in patients over 70 years has not been determined. Clinical correlation is essential. Serum or plasma urea nitroge n measurement (mass/volume)Ordered By: Justine Trinidad on 05-14-2023 Urea nitrogen [Mass/Vol] 9 mg/dL 7-18 [facility] Thin prep Papanicolaou smear with manual screeningOrdered By: Justine Trinidad on 05-14-2023 Thin prep Papanicolaou smear with manual screening 5 5-15 [facility] XR SCOLIOSIS PA STAND/LAT 2V on 02-02-2023 [facility] HbA1c (Bld)on 12-24-2022 Average glucose Estimated from glycated hemoglobin (Bld) [Mass/Vol] 105 mg/dL [facility] HbA1c (Bld) [Mass fraction] 5.3 % 4.3 - 5.6 % [facility] XR Knee - right AP and Later mamadou 12-15-2022 IMPRESSION: Mild degenerative findings Archives Director: MAGAN Transcribe Date/Time: Dec 15 2022 2:39P Dictated by : DANIEL MATUTE MD This examination was interpreted and the report reviewed and electronically signed by: DANIEL MATUTE MD on Dec 15 2022 2:45PM EST DIVISION OF RADIOLOGY * * *Final Report* * * DATE OF EXAM: Dec 11 2022 3:24PM WOX 5207 - XR KNEE 2V AP/LAT RT / PROCEDURE REASON: Acute pain of right knee * * * * Physician Interpretation * * * * Right knee HISTORY: 42 years old Clinical information: Acute pain of right knee Right knee pain after fall 2 weeks ago. TECHNIQUE: Images: XR KNEE 2V AP/LAT RT Comparison: 01/06/2018. RESULT: Findings: Slight narrowing medial compartment RIGHT knee with minimal patellofemoral spurring. Mild narrowing medial compartment LEFT knee. DIVISION OF RADIOLOGY Provider, [facility] - 12/15/2022 * * *Final Report* * * DATE OF EXAM: Dec 11 2022 3:24PM WOX 5207 - XR KNEE 2V AP/LAT RT / PROCEDURE REASON: Acute pain of right knee * * * * Physician Interpretation * * * * Right knee HISTORY: 42 years old Clinical information: Acute pain of right knee Right knee pain after fall 2 weeks ago. TECHNIQUE: Images: XR KNEE 2V AP/LAT RT Comparison: 01/06/2018. RESULT: Findings: Slight narrowing medial compartment RIGHT knee with minimal patellofemoral spurring. Mild narrowing medial compartment LEFT knee. IMPRESSION IMPRESSION: Mild degenerative findings Archives Director: PSCB Transcribe Date/Time: Dec 15 2022 2:39P Dictated by : DANIEL MATUTE MD This examination was interpreted and the report reviewed and electronically signed by: DANIEL MATUTE MD on Dec 15 2022 2:45PM EST [facility] XR Knee - right AP and Later alOrdered By: Ccf Provider on 12-15-2022 [facility] XR Knee - right AP and Later mamadou 12-11-2022 Radiology Study observation (narrative) [facility] Absolute lymphocyte countOrd ered By: Dr. Arreola on 09-18-2022 Lymphocytes Auto (Unsp spec) [#/Vol] 1.89 10*3/uL 0.83-4.51 [facility] [place] Basophil percentageOrdered B y: Dr. Arreola on 09-18-2022 Basophils/100 WBC (Bld) 0.1 % 0-1 [facility] Chloride [Moles/Vol] 120 mmol/L 98-[facility] Eosin[facility]/100 WBC (Bld) 0.0 % 0-5 [facility] [place] Glucose [Mass/Vol] 83 mg/dL 74-106 [facility] Neutrophils (Bld) [#/Vol] 8.0 10*3/uL 2.0-7.7 [facility] Neutrophils/100 WBC (Bld) 73.4 % 47-70 [facility] Potassium [Moles/Vol] 3.3 mmol/L 3.5-5.1 [facility] Sodium [Moles/Vol] 146 mmol/L 136-145 [facility] WBC (Bld) [#/Vol] 10.8 10*3/uL 4.4-11.0 [facility] Blood erythrocytes count (nu mber/volume)Ordered By: Dr. Arreola on 09-18-2022 RBC (Bld) [#/Vol] 4.68 10*6/uL 4.2-5.4 [facility] Blood hemoglobin measurement (mass/volume)Ordered By: Dr. Arreola on 09-18-2022 Hemoglobin (Bld) [Mass/Vol] 13.4 g/dL 12.0-15.0 [facility] [place] Blood lymphocytes/100 leukoc ytesOrdered By: Dr. Arreola on 09-18-2022 Lymphocytes/100 WBC (Bld) 17.4 % 19-41 [facility] [place] Blood monocytes/100 leukocyt esOrdered By: Dr. Arreola on 09-18-2022 Monocytes/100 WBC (Bld) 8.6 % 0-10 [facility] Blood platelet mean volumeOr dered By: Dr. Arreola on 09-18-2022 Platelet mean volume (Bld) [Entitic vol] 10.1 fL 6.2-12.0 [facility] [place] Determination of erythrocyte mean corpuscular volume (MCV)Ordered By: Dr. Arreola on 09-18-2022 MCV (RBC) [Entitic vol] 94.2 fL 81-99 [facility] Hematocrit Auto (Bld) [Volum e fraction]Ordered By: Dr. Arreola on 09-18-2022 Hematocrit (Bld) [Volume fraction] 44.1 % 37-47 [facility] [place] Laboratory - Chemistry and C hemistry - challengeOrdered By: Dr. Arreola on 09-18-2022 CO2 [Moles/Vol] 19.0 mmol/L 21.0-32.0 [facility] [place] Urea nitrogen/Creatinine [Mass ratio] 13.2 mg/mg 10-20 [facility] [place] Laboratory - Hematology and Cell countsOrdered By: Dr. Arreola on 09-18-2022 Erythrocyte distribution width (RBC) [Entitic vol] 46.7 fL 35.1-43.9 [facility] [place] Erythrocyte distribution width (RBC) [Ratio] 13.4 % 11.6-14.6 [facility] [place] Immature granulocytes/100 WBC (Bld) 0.500 % 0.0-0.9 [facility] [place] Comment on above: IG% - Immature Granu locytes (promyelocytes, myelocytes and metamyelocytes) > 1% indicates that a LEFT SHIFT is Present. MCH (RBC) [Entitic mass] 28.6 pg 27.0-32.0 [facility] [place] Nucleated RBC/100 WBC (Bld) [Ratio] 0 % 0-5 [facility] [place] MCHC Auto (RBC) [Mass/Vol]Or dered By: Dr. Arreola on 09-18-2022 MCHC (RBC) [Mass/Vol] 30.4 g/dL 32-36 [facility] No Panel InformationOrdered By: Dr. Arreola on 09-18-2022 Estimated GFR (MDRD) Amer 109 mL/min >60 [facility] [place] Comment on above: GFR Calc Estimated GFR (MDRD) Non-Af Amer 90 mL/min >60 [facility] [place] Comment on above: Non- GFR Calc Platelets bldOrdered By: Dr. Arreola on 09-18-2022 Platelets (Bld) [#/Vol] 253 10*3/uL 150-450 [facility] [place] Serum or plasma calcium caryl urement (mass/volume)Ordered By: Dr. Arreola on 09-18-2022 Calcium [Mass/Vol] 7.5 mg/dL 8.5-10.1 [facility] Serum or plasma creatinine m easurement (mass/volume)Ordered By: Dr. Arreola on 09-18-2022 Creatinine [Mass/Vol] 0.76 mg/dL 0.55-1.02 [facility] Comment on above: The validity of the calculated GFR & GFRAA in patients over 70 years has not been determined. Clinical correlation is essential. Serum or plasma urea nitroge n measurement (mass/volume)Ordered By: Dr. Arreola on 09-18-2022 Urea nitrogen [Mass/Vol] 10 mg/dL 7-18 [facility] [place] Thin prep Papanicolaou smear with manual screeningOrdered By: Dr. Arreola on 09-18-2022 Thin prep Papanicolaou smear with manual screening 7 5-15 [facility] [place] Influenza virus A and B RNA and SARS-CoV-2 (COVID-19) N gene panel MINDI+probe (Resp)on 07-30-2022 FLUAV RNA MINDI+probe Ql (Unsp spec) Not detected Not Detected [facility] FLUBV RNA MINDI+probe Ql (Unsp spec) Not detected Not Detected [facility] SARS-CoV-2 (COVID-19) RNA MINDI+probe Ql (Resp) Not detected See comment [facility] Absolute lymphocyte countOrd ered By: Dr. Arreola on 07-14-2022 Lymphocytes Auto (Unsp spec) [#/Vol] 2.55 10*3/uL 0.83-4.51 [facility] [place] Basophil percentageOrdered B y: Dr. Arreola on 07-14-2022 Basophils/100 WBC (Bld) 0.1 % 0-1 [facility] Chloride [Moles/Vol] 111 mmol/L 98-107 [facility] Eosinophils/100 WBC (Bld) 0.0 % 0-5 [facility] [place] Glucose [Mass/Vol] 87 mg/dL 74-106 [facility] Neutrophils (Bld) [#/Vol] 6.3 10*3/uL 2.0-7.7 [facility] [place] Neutrophils/100 WBC (Bld) 64.4 % 47-70 [facility] [place] Potassium [Moles/Vol] 3.7 mmol/L 3.5-5.1 [facility] Sodium [Moles/Vol] 139 mmol/L 136-145 [facility] WBC (Bld) [#/Vol] 9.8 10*3/uL 4.4-11.0 [facility] Blood erythrocytes count (nu mber/volume)Ordered By: Dr. Arreola on 07-14-2022 RBC (Bld) [#/Vol] 5.14 10*6/uL 4.2-5.4 [facility] Blood hemoglobin measurement (mass/volume)Ordered By: Dr. Arreola on 07-14-2022 Hemoglobin (Bld) [Mass/Vol] 15.1 g/dL 12.0-15.0 [facility] [place] Blood lymphocytes/100 leukoc ytesOrdered By: Dr. Arreola on 07-14-2022 Lymphocytes/100 WBC (Bld) 26.1 % 19-41 [facility] [place] Blood monocytes/100 leukocyt esOrdered By: Dr. Arreola on 07-14-2022 Monocytes/100 WBC (Bld) 9.0 % 0-10 [facility] Blood platelet mean volumeOr dered By: Dr. Arreola on 07-14-2022 Platelet mean volume (Bld) [Entitic vol] 10.3 fL 6.2-12.0 [facility] [place] Determination of erythrocyte mean corpuscular volume (MCV)Ordered By: Dr. Arreola on 07-14-2022 MCV (RBC) [Entitic vol] 91.8 fL 81-99 [facility] Hematocrit Auto (Bld) [Volum e fraction]Ordered By: Dr. Arreola on 07-14-2022 Hematocrit (Bld) [Volume fraction] 47.2 % 37-47 [facility] [place] Laboratory - Chemistry and C hemistry - challengeOrdered By: Dr. Arreola on 07-14-2022 CO2 [Moles/Vol] 23.0 mmol/L 21.0-32.0 [facility] [place] Urea nitrogen/Creatinine [Mass ratio] 9.5 mg/mg 10-20 [facility] [place] Laboratory - Hematology and Cell countsOrdered By: Dr. Arreola on 07-14-2022 Erythrocyte distribution width (RBC) [Entitic vol] 44.0 fL 35.1-43.9 [facility] [place] Erythrocyte distribution width (RBC) [Ratio] 13.0 % 11.6-14.6 [facility] [place] Immature granulocytes/100 WBC (Bld) 0.400 % 0.0-0.9 [facility] [place] Comment on above: IG% - Immature Granu locytes (promyelocytes, myelocytes and metamyelocytes) > 1% indicates that a LEFT SHIFT is Present. MCH (RBC) [Entitic mass] 29.4 pg 27.0-32.0 [facility] [place] Nucleated RBC/100 WBC (Bld) [Ratio] 0 % 0-5 [facility] [place] MCHC Auto (RBC) [Mass/Vol]Or dered By: Dr. Arreola on 07-14-2022 MCHC (RBC) [Mass/Vol] 32.0 g/dL 32-36 [facility] No Panel InformationOrdered By: Dr. Arreola on 07-14-2022 Troponin I High Sensitivity 4 pg/mL 3.0-54.0 [facility] [place] Comment on above: Please Note: New Billie t Units and Gender Specific Reference Ranges. For more information see Policy Stat Procedure [place] High Sensitivity Troponin (TNIH) and attachments. D-Dimer Quantitative (PE/DVT) 0.52 FEU/ug/m 0.27-0.49 [facility] [place] Comment on above: D-Dimer ELEVATED (>0 .49): Additional studies and clinicalassessments are indicated to conclude diagnosis of:Deep Vein Thrombosis (DVT) or Pulmonary Embolism (PE)CRITICAL VALUE VERIFIED. CALLED TO KENYA JOY07/14/222018 Keysha Costa.RESULTS READ BACK BY SAME. Estimated Creatinine Clearance Calc 64.73 ml/min [facility] [place] Estimated GFR (MDRD) Amer 75 mL/min >60 [facility] [place] Comment on above: GFR Calc Estimated GFR (MDRD) Non-Af Amer 62 mL/min >60 [facility] [place] Comment on above: Non- GFR Calc Platelets bldOrdered By: Dr. Arreola on 07-14-2022 Platelets (Bld) [#/Vol] 256 10*3/uL 150-450 [facility] [place] Serum or plasma calcium caryl urement (mass/volume)Ordered By: Dr. Arreola on 07-14-2022 Calcium [Mass/Vol] 9.0 mg/dL 8.5-10.1 [facility] Serum or plasma creatinine m easurement (mass/volume)Ordered By: Dr. Arreola on 07-14-2022 Creatinine [Mass/Vol] 1.05 mg/dL 0.55-1.02 [facility] Comment on above: The validity of the calculated GFR & GFRAA in patients over 70 years has not been determined. Clinical correlation is essential. Serum or plasma urea nitroge n measurement (mass/volume)Ordered By: Dr. Arreola on 07-14-2022 Urea nitrogen [Mass/Vol] 10 mg/dL 7-18 [facility] [place] Thin prep Papanicolaou smear with manual screeningOrdered By: Dr. Arreola on 07-14-2022 Thin prep Papanicolaou smear with manual screening 5 5-15 [facility] [place] CT FLANK WO IVCONon 05-13-19 [facility] Throat Streptococcus pyogene s antigen detection by immunofluorescenceOrdered By: ED PROVIDER on 04-26-2022 S. pyogenes Ag IF Ql (Throat) [facility] [place] Absolute lymphocyte countOrd ered By: Dr. Mustafa on 04-25-2022 Lymphocytes Auto (Unsp spec) [#/Vol] 2.37 10*3/uL 0.83-4.51 [facility] [place] Basophil percentageOrdered B y: Dr. Mustafa on 04-25-2022 Basophils/100 WBC (Bld) 0.1 % 0-1 [facility] Eosinophils/100 WBC (Bld) 0.0 % 0-5 [facility] [place] Neutrophils (Bld) [#/Vol] 6.4 10*3/uL 2.0-7.7 [facility] [place] Neutrophils/100 WBC (Bld) 65.4 % 47-70 [facility] [place] WBC (Bld) [#/Vol] 9.7 10*3/uL 4.4-11.0 [facility] Beta hCG serum qualOrdered B y: Dr. Mustafa on 04-25-2022 Beta HCG ( test) Ql Negative [facility] [place] Blood erythrocytes count (nu mber/volume)Ordered By: Dr. Mustafa on 04-25-2022 RBC (Bld) [#/Vol] 4.68 10*6/uL 4.2-5.4 [facility] Blood hemoglobin measurement (mass/volume)Ordered By: Dr. Mustafa on 04-25-2022 Hemoglobin (Bld) [Mass/Vol] 13.6 g/dL 12.0-15.0 [facility] [place] Blood lymphocytes/100 leukoc ytesOrdered By: Dr. Mustafa on 04-25-2022 Lymphocytes/100 WBC (Bld) 24.4 % 19-41 [facility] [place] Blood monocytes/100 leukocyt esOrdered By: Dr. Mustafa on 04-25-2022 Monocytes/100 WBC (Bld) 9.7 % 0-10 [facility] Blood platelet mean volumeOr dered By: Dr. Mustafa on 04-25-2022 Platelet mean volume (Bld) [Entitic vol] 9.7 fL 6.2-12.0 [facility] [place] Determination of erythrocyte mean corpuscular volume (MCV)Ordered By: Dr. Mustafa on 04-25-2022 MCV (RBC) [Entitic vol] 91.9 fL 81-99 [facility] Hematocrit Auto (Bld) [Volum e fraction]Ordered By: Dr. Mustafa on 04-25-2022 Hematocrit (Bld) [Volume fraction] 43.0 % 37-47 [facility] [place] Influenza virus A and B and SARS-CoV-2 (COVID-19) Ag panel - Upper respiratory specimOrdered By: Dr. Mustafa on 04-25-2022 SARS-CoV-2 (COVID-19) RNA MINDI+probe Ql (Resp) [facility] [place] Laboratory - Hematology and Cell countsOrdered By: Dr. Mustafa on 04-25-2022 Erythrocyte distribution width (RBC) [Entitic vol] 46.5 fL 35.1-43.9 [facility] [place] Erythrocyte distribution width (RBC) [Ratio] 13.6 % 11.6-14.6 [facility] [place] Immature granulocytes/100 WBC (Bld) 0.400 % 0.0-0.9 [facility] [place] Comment on above: IG% - Immature Granu locytes (promyelocytes, myelocytes and metamyelocytes) > 1% indicates that a LEFT SHIFT is Present. MCH (RBC) [Entitic mass] 29.1 pg 27.0-32.0 [facility] Nucleated RBC/100 WBC (Bld) [Ratio] 0 % 0-5 [facility] [place] MCHC Auto (RBC) [Mass/Vol]Or dered By: Dr. Mustafa on 04-25-2022 MCHC (RBC) [Mass/Vol] 31.6 g/dL 32-36 [facility] Platelets bldOrdered By: Dr. Mustafa on 04-25-2022 Platelets (Bld) [#/Vol] 258 10*3/uL 150-450 [facility] Influenza virus A and B RNA and SARS-CoV-2 (COVID-19) N gene panel MINDI+probe (Resp)on 04-11-2022 FLUAV RNA MINDI+probe Ql (Unsp spec) Negative Negative for Influenza A by RT-PCR [facility] FLUBV RNA MINDI+probe Ql (Unsp spec) Negative Negative for Influenza B by RT-PCR [facility] SARS-CoV-2 (COVID-19) RNA MINDI+probe Ql (Resp) SARS-CoV-2 (Agent of COVID-19) Not Detected by RT-PCR or equivalent method. Not Detected [facility] XR CHEST 2V FRONTAL/LATon [facility] XR Chest PA and Lateralon IMPRESSION: No acute radiographic abnormality. Archives Director: MAGAN Transcribe Date/Time: Apr 10 2022 2:31P Dictated by : NOEL BALDWIN MD This examination was interpreted and the report reviewed and electronically signed by: NOEL BALDWIN MD on Apr 10 2022 2:32PM [facility] DIVISION OF RADIOLOGY * * *Final Report* * * DATE OF EXAM: Apr 10 2022 2:23PM WOX 5291 - XR CHEST 2V FRONTAL/LAT / PROCEDURE REASON: Acute cough * * * * Physician Interpretation * * * * EXAMINATION: CHEST RADIOGRAPH (2 VIEW FRONTAL & LATERAL) CLINICAL HISTORY: Acute cough MQ: XC2_6 EXAM DATE/TIME: 04/10/2022 2:23 PM COMPARISON: Chest x-ray on 08/22/2020 RESULT: Lines, tubes, and devices: None. Lungs and pleura: Small lung volume. No consolidation. No lung mass. No pleural effusion. No pneumothorax. Cardiomediastinal silhouette: Stable cardiomediastinal silhouette. Bones and soft tissues: Unremarkable. DIVISION OF RADIOLOGY Provider, Marimar Perry - 04/10/2022 * * *Final Report* * * DATE OF EXAM: Apr 10 2022 2:23PM WOX 5291 - XR CHEST 2V FRONTAL/LAT / PROCEDURE REASON: Acute cough * * * * Physician Interpretation * * * * EXAMINATION: CHEST RADIOGRAPH (2 VIEW FRONTAL & LATERAL) CLINICAL HISTORY: Acute cough MQ: XC2_6 EXAM DATE/TIME: 04/10/2022 2:23 PM COMPARISON: Chest x-ray on 08/22/2020 RESULT: Lines, tubes, and devices: None. Lungs and pleura: Small lung volume. No consolidation. No lung mass. No pleural effusion. No pneumothorax. Cardiomediastinal silhouette: Stable cardiomediastinal silhouette. Bones and soft tissues: Unremarkable. IMPRESSION IMPRESSION: No acute radiographic abnormality. Archives Director: MAGAN Transcribe Date/Time: Apr 10 2022 2:31P Dictated by : NOEL BALDWIN MD This examination was interpreted and the report reviewed and electronically signed by: NOEL BALDWIN MD on Apr 10 2022 2:32PM EST [facility] Radiology Study observation (narrative) [facility] XR Chest PA and LateralOrder ed By: Ccf Provider on 04-10-2022 [facility] US KIDNEY/BLADDERon 03-07-20 [facility] XR Chest PA and Lateralon IMPRESSION: No acute radiographic abnormality. Archives Director: MAGAN Transcribe Date/Time: Aug 22 2020 9:44A Dictated by : NOEL BALDWIN MD This examination was interpreted and the report reviewed and electronically signed by: NEOL BALDWIN MD on Aug 22 2020 9:45AM [facility] DIVISION OF RADIOLOGY * * *Final Report* * * DATE OF EXAM: Aug 22 2020 9:39AM WOX 5291 - XR CHEST 2V FRONTAL/LAT / PROCEDURE REASON: Cough * * * * Physician Interpretation * * * * EXAMINATION: CHEST RADIOGRAPH (2 VIEW FRONTAL & LATERAL) CLINICAL HISTORY: Cough MQ: XC2_6 EXAM DATE/TIME: 08/22/2020 9:39 AM COMPARISON: Chest x-ray on 12/02/2019. RESULT: Lines, tubes, and devices: None. Lungs and pleura: Small lung volume due to inadequate inspiration. No consolidation. No lung mass. No pleural effusion. No pneumothorax. Cardiomediastinal silhouette: Normal cardiomediastinal silhouette. Bones and soft tissues: Stable thoracic spine. DIVISION OF RADIOLOGY Provider, Beba Sara [facility] - 08/22/2020 * * *Final Report* * * DATE OF EXAM: Aug 22 2020 9:39AM WOX 5291 - XR CHEST 2V FRONTAL/LAT / PROCEDURE REASON: Cough * * * * Physician Interpretation * * * * EXAMINATION: CHEST RADIOGRAPH (2 VIEW FRONTAL & LATERAL) CLINICAL HISTORY: Cough MQ: XC2_6 EXAM DATE/TIME: 08/22/2020 9:39 AM COMPARISON: Chest x-ray on 12/02/2019. RESULT: Lines, tubes, and devices: None. Lungs and pleura: Small lung volume due to inadequate inspiration. No consolidation. No lung mass. No pleural effusion. No pneumothorax. Cardiomediastinal silhouette: Normal cardiomediastinal silhouette. Bones and soft tissues: Stable thoracic spine. IMPRESSION IMPRESSION: No acute radiographic abnormality. Archives Director: MAGAN Transcribe Date/Time: Aug 22 2020 9:44A Dictated by : NOEL BALDWIN MD This examination was interpreted and the report reviewed and electronically signed by: NOEL BALDWIN MD on Aug 22 2020 9:45AM [facility] Radiology Study observation (narrative) [facility] XR Chest PA and LateralOrder ed By: Cc Provider on 08-22-2020 [facility] .Auto Diffon 06-01-2019 Ammonia (P) [Mass/Vol] 0.70 10 3/mcL Normal 0.15-1.00 [facility] ([place]) Comment on above: Performed By: #### C BC, ADIFF, ANEU #### [facility] [address], [place] [address] #### BMP, MG, GFR #### [address] [address] Basophils (Bld) [#/Vol] 0.10 10 3/mcL Normal 0.00-0.19 [facility] ([place]) Comment on above: Performed By: #### C BC, ADIFF, ANEU #### [place] [address] #### BMP, MG, GFR #### [address] [address] Basophils/100 WBC (Bld) 0.6 % Normal 0.0-2.5 [facility] ([place]) Comment on above: Performed By: #### C BC, ADIFF, ANEU #### [place] [address] #### BMP, MG, GFR #### [address] [address] Eosinophils (Bld) [#/Vol] 0.00 10 3/mcL Normal 0.00-0.40 [facility] ([place]) Comment on above: Performed By: #### C BC, ADIFF, ANEU #### [place] [address] #### BMP, MG, GFR #### [address] [address] Eosinophils/100 WBC (Bld) 0.0 % Normal 0.0-7.0 [facility] ([place]) Comment on above: Performed By: #### C BC, ADIFF, ANEU #### [place] [address] #### BMP, MG, GFR #### [address] [address] Lymphocytes (Bld) [#/Vol] 1.40 10 3/mcL Normal 0.77-3.85 [facility] ([place]) Comment on above: Performed By: #### C BC, ADIFF, ANEU #### [place] [address] #### BMP, MG, GFR #### [address] [address] Lymphocytes/100 WBC (Bld) 13.7 % Normal 10.0-50.0 [facility] ([place]) Comment on above: Performed By: #### C BC, ADIFF, ANEU #### [address] [address] #### BMP, MG, GFR #### [address] [address] Monocytes/100 WBC (Bld) 6.6 % Normal 1.7-13.0 [facility] ([place]) Comment on above: Performed By: #### C BC, ADIFF, ANEU #### [address] [address] #### BMP, MG, GFR #### [address] [address] Neutrophils/100 WBC (Bld) 79.1 % Normal 37.0-80.0 [facility] ([place]) Comment on above: Performed By: #### C BC, ADIFF, ANEU #### [address] [address] #### BMP, MG, GFR #### [address] [address] .GFRon 06-01-2019 GFR 76 ml/min/1.73sqm Normal [facility] ([place]) Comment on above: Result Comment: GFR Population mean for , Non- Americans Ages 20-29 = 116 mL/min/1.73 sq.m. Ages 30-39 = 107 mL/min/1.73 sq.m. Ages 40-49 = 99 mL/min/1.73 sq.m. Ages 50-59 = 93 mL/min/1.73 sq.m. Ages 60-69 = 85 mL/min/1.73 sq.m. Ages 70+ = 75 mL/min/1.73 sq.m. Chronic Kidney Disease: Less than 60 mL/min/1.73 square meters End Stage Renal Disease: Less than 15 mL/min/1.73 square meters Performed By: #### C BC, ADIFF, ANEU #### [address] [address] #### BMP, MG, GFR #### [address] [address] GFR Non- 63 ml/min/1.73sqm Normal [facility] ([place]) Comment on above: Result Comment: GFR Population mean for , Non- Americans Ages 20-29 = 116 mL/min/1.73 sq.m. Ages 30-39 = 107 mL/min/1.73 sq.m. Ages 40-49 = 99 mL/min/1.73 sq.m. Ages 50-59 = 93 mL/min/1.73 sq.m. Ages 60-69 = 85 mL/min/1.73 sq.m. Ages 70+ = 75 mL/min/1.73 sq.m. Chronic Kidney Disease: Less than 60 mL/min/1.73 square meters End Stage Renal Disease: Less than 15 mL/min/1.73 square meters Performed By: #### C BC ADIFF, ANEU #### [address] [address] #### BMP, MG, GFR #### [address] [address] .NEUABSon 06-01-2019 Neutrophils (Bld) [#/Vol] 8.10 10 3/mcL High 2.85-6.16 [facility] ([place]) Comment on above: Performed By: #### Kevin BCJESSICAIFF, ANEU #### [address] [address] #### BMP, MG, GFR #### [address] [address] BMPon 06-01-2019 Calcium [Mass/Vol] 8.6 mg/dL Normal 8.4-10.2 [facility] ([place]) Comment on above: Performed By: #### C BCJESSICAIFF, ANEU #### [address] [address] #### BMP, MG, GFR #### [address] [address] Chloride [Moles/Vol] 108 mmol/L High 98-107 [facility] ([place]) Comment on above: Performed By: #### C BC, ADIFF, ANEU #### [address] [address] #### BMP, MG, GFR #### [address] [address] CO2 [Moles/Vol] 18 mmol/L Low 22-29 [facility] ([place]) Comment on above: Performed By: #### C BC, ADIFF, ANEU #### [address] [address] #### BMP, MG, GFR #### [address] [address] Creatinine [Mass/Vol] 1.00 mg/dL Normal 0.55-1.02 On license of [facility] ([place]) Comment on above: Performed By: #### C BC, ADIFF, ANEU #### [address] [address] #### BMP, MG, GFR #### [address] [address] Electrolyte Balance 14.0 mEq/L Normal [facility] ([place]) Comment on above: Performed By: #### C BC, ADIFF, ANEU #### [address] [address] #### BMP, MG, GFR #### [address] [address] Glucose [Mass/Vol] 107 mg/dL High 70-105 [facility] ([place]) Comment on above: Performed By: #### C BC, ADIFF, ANEU #### [address] [address] #### BMP, MG, GFR #### [address] [address] Potassium [Moles/Vol] 4.6 mmol/L Normal 3.5-5.1 On license of [facility] ([place]) Comment on above: Performed By: #### C BC, ADIFF, ANEU #### [address] [address] #### BMP, MG, GFR #### [address] [address] Sodium [Moles/Vol] 140 mmol/L Normal 136-145 [facility] ([place]) Comment on above: Performed By: #### C BC ADIFF, ANEU #### [address] [address] #### BMP, MG, GFR #### [address] [address] Urea nitrogen [Mass/Vol] 11 mg/dL Normal 7-18 [facility] ([place]) Comment on above: Performed By: #### C BC, ADIFF, ANEU #### [address] [address] #### BMP, MG, GFR #### [address] [address] Urea nitrogen/Creatinine [Mass ratio] 11 ratio Normal 7-27 [facility] ([place]) Comment on above: Performed By: #### C BCJESSICAIFF, ANEU #### [place] [address] #### BMP, MG, GFR #### [address] [address] CBCon 06-01-2019 Erythrocyte distribution width (RBC) [Ratio] 14.0 % Normal 11.5-14.5 [facility] ([place]) Comment on above: Performed By: #### C BCKAYE, ANEU #### [place] [address] #### BMP, MG, GFR #### [address] [address] Hematocrit (Bld) [Volume fraction] 43.4 % Normal 37.0-47.0 [facility] ([place]) Comment on above: Performed By: #### C BC, ADIFF, ANEU #### [address] [address] #### BMP, MG, GFR #### [address] [address] Hemoglobin (Bld) [Mass/Vol] 14.4 G/dL Normal 12.0-16.0 [facility] ([place]) Comment on above: Performed By: #### C BC, ADIFF, ANEU #### [place] [address] #### BMP, MG, GFR #### [address] [address] MCH (RBC) [Entitic mass] 29.5 pg Normal 27.0-31.2 [facility] ([place]) Comment on above: Performed By: #### C BC, ADIFF, ANEU #### [place] [address] #### BMP, MG, GFR #### [address] [address] MCHC (RBC) [Mass/Vol] 33.1 G/dL Normal 33.0-37.0 On license of [facility] ([place]) Comment on above: Performed By: #### C BC, ADIFF, ANEU #### [place] [address] #### BMP, MG, GFR #### [address] [address] MCV (RBC) [Entitic vol] 89.1 fL Normal 80.0-94.0 [facility] ([place]) Comment on above: Performed By: #### C BC, ADIFF, ANEU #### [place] [address] #### BMP, MG, GFR #### [address] [address] Platelet mean volume (Bld) [Entitic vol] 8.2 fL Normal 7.4-10.4 [facility] ([place]) Comment on above: Performed By: #### C BC, ADIFF, ANEU #### [place] [address] #### BMP, MG, GFR #### [address] [address] Platelets (Bld) [#/Vol] 255 10 3/mcL Normal 130-400 [facility] ([place]) Comment on above: Performed By: #### C BC, ADIFF, ANEU #### [address] [address] #### BMP, MG, GFR #### [address] [address] RBC (Bld) [#/Vol] 4.87 10 6/mcL Normal 4.20-5.40 [facility] ([place]) Comment on above: Performed By: #### C BC, ADIFF, ANEU #### [address] [address] #### BMP, MG, GFR #### [address] [address] WBC (Bld) [#/Vol] 10.20 10 3/mcL Normal 4.60-10.80 On license of [facility] ([place]) Comment on above: Performed By: #### C BC, ADIFF, ANEU #### [place] [address] #### BMP, MG, GFR #### [address] [address] MGon 06-01-2019 Magnesium [Mass/Vol] 2.1 mg/dL Normal 1.8-2.4 [facility] ([place]) Comment on above: Performed By: #### C BC, ADIFF, ANEU #### [place] [address] #### BMP, MG, GFR #### [place] [address] Culture, Urineon 09-18-2017 Culture, Urine OR DERED BY: WILMAR DAMIAN: Urine Straight Cath COLLECTED: 09/18/17 05:00ANTIBIOTICS AT EMILY.: RECEIVED : 09/18/17 08:33Culture, Urine FINAL 09/20/17 07:27 >50,000 CFU/ml of mixed jordi Multiple organisms isolated, no predominance. Culture indicates probable contamination. Please review colony count and clinical indications to determine if a repeat culture is necessary. No further workup to be done. Normal [facility] Urinalysis, reflex to micros copicon 09-18-2017 Bilirubin Ql (U) Negative Normal Negative [facility] Urine, clarity CLOUDY Abnormal Clear [facility] Urine, color RED Abnormal Straw/[place] [facility] Urine, glucose presence Negative Normal Negative [facility] Urine, hemoglobin presence LARGE Abnormal Negative [facility] Urine, ketones presence Negative Normal Negative [facility] Urine, leukocyte esterase presence LARGE Abnormal Negative [facility] Urine, nitrite presence Negative Normal Negative [facility] Urine, pH 6.5 [pH] Normal 5.0-9.0 [facility] Urine, protein presence 30 mg/dL Abnormal Negative [facility] Urine, specific gravity 1.015 Normal 1.005-1.03 [facility] Urine, urobilinogen 0.2 {Shane'U}/dL Normal < 2.0 [facility] Urine Microscopicon 09-19-19 18 Urine, bacteria in sediment Few Normal [facility] Urine, epithelial cells presence in sediment 5-10 Normal [facility] Urine, erythrocytes /uL Abnormal 0-2 [facility] Urine, leukocytes 6-10 Abnormal 0-5 [facility] Influenza virus A and B and SARS-CoV-2 (COVID-19) Ag panel - Upper respiratory specim SARS-CoV-2 (COVID-19) RNA MINDI+probe Ql (Resp) [facility] Work Phone: Vital Signs Date Time Vital Sign Value Performing Clinician Facility 11-28-2024 13:47-0400 Diastolic blood pressure 88 mm[Hg] Ashanti Vonnie DAIRY INSPECTOR.MILLER HEAD ASSISTANT WET PROCESS Work Phone: [facility] 11-28-2024 13:47-0400 Systolic blood pressure 122 mm[Hg] Ashanti [place] DAIRY INSPECTOR.MILLER HEAD ASSISTANT WET PROCESS Work Phone: [facility] 11-09-2024 11:48-0400 Body mass index (BMI) [Ratio] 52.21 kg/m2 Jacki Podlogar DAIRY INSPECTOR.MILLER HEAD ASSISTANT WET PROCESS Work Phone: [facility] 11-09-2024 11:48-0400 Body temperature 98.29 [degF] Jacki Podlogar DAIRY INSPECTOR.MILLER HEAD ASSISTANT WET PROCESS Work Phone: [facility] 11-09-2024 11:48-0400 Body weight 132 kg Jacki Podlogar DAIRY INSPECTOR.MILLER HEAD ASSISTANT WET PROCESS Work Phone: [facility] 11-09-2024 11:48-0400 Diastolic blood pressure 78 mm[Hg] Jacki Podlogar DAIRY INSPECTOR.MILLER HEAD ASSISTANT WET PROCESS Work Phone: [facility] 11-09-2024 11:48-0400 Heart rate 86 /min Jacki Podlogar DAIRY INSPECTOR.MILLER HEAD ASSISTANT WET PROCESS Work Phone: [facility] 11-09-2024 11:48-0400 Respiratory rate 18 /min Jacki Podlogar DAIRY INSPECTOR.MILLER HEAD ASSISTANT WET PROCESS Work Phone: [facility] 11-09-2024 11:48-0400 SaO2% (BldA) [Mass fraction] 98 % Jacki Podlogar DAIRY INSPECTOR.MILLER HEAD ASSISTANT WET PROCESS Work Phone: [facility] 11-09-2024 11:48-0400 Systolic blood pressure 116 mm[Hg] Jacki Podlogar DAIRY INSPECTOR.MILLER HEAD ASSISTANT WET PROCESS Work Phone: [facility] 09-05-2024 19:12-0400 Diastolic blood pressure 80 mm[Hg] Daniel Tan MD Work Phone: [facility] 09-05-2024 19:12-0400 Heart rate 82 /min Daniel Tan MD Work Phone: [facility] 09-05-2024 19:12-0400 Respiratory rate 18 /min Daniel Tan MD Work Phone: [facility] 09-05-2024 19:12-0400 Systolic blood pressure 116 mm[Hg] Daniel Tan MD Work Phone: [facility] 06-10-2024 10:49-0500 Body temperature 98.06 [degF] DR EUNICE DANG MD [facility] 06-10-2024 10:49-0500 Diastolic Blood Pressure Non-Invasive 73 mm[Hg] DR EUNICE DANG MD [address] [place] [address] 06-10-2024 10:49-0500 Heart rate 79 /min DR EUNICE DANG MD [address] [place] [address] 06-10-2024 10:49-0500 Respiratory rate 19 /min DR EUNICE DANG MD [address] [place] [address] 06-10-2024 10:49-0500 Systolic Blood Pressure Non-Invasive 118 mm[Hg] DR EUNICE DANG MD [address] [place] [address] 06-10-2024 08:28-0500 Body temperature 98.24 [degF] DR EUNICE DANG MD [address] [place] [address] 06-10-2024 08:28-0500 Diastolic Blood Pressure Non-Invasive 80 mm[Hg] DR EUNICE DANG MD [address] [place] [address] 06-10-2024 08:28-0500 Heart rate 69 /min DR EUNICE DANG MD [address] [place] [address] 06-10-2024 08:28-0500 Respiratory rate 18 /min DR EUNICE DANG MD [address] [place] [address] 06-10-2024 08:28-0500 Systolic Blood Pressure Non-Invasive 123 mm[Hg] DR EUNICE DANG MD [address] [place] [address] 06-10-2024 06:27-0500 Heart rate 66 /min DR EUNICE DANG MD [address] [place] [address] 06-10-2024 06:27-0500 Respiratory rate 18 /min DR EUNICE DANG MD [address] [place] [address] 06-10-2024 04:32-0500 Body temperature 98.06 [degF] DR EUNICE DANG MD [address] [place] [address] 06-10-2024 04:32-0500 Diastolic Blood Pressure Non-Invasive 77 mm[Hg] DR EUNICE DANG MD [address] [place] [address] 06-10-2024 04:32-0500 Heart rate 66 /min DR EUNICE DANG MD [address] [place] [address] 06-10-2024 04:32-0500 Mean blood pressure 90 mm[Hg] DR EUNICE DANG MD [address] [place] [address] 06-10-2024 04:32-0500 Reason For Taking VItal Signs DR EUNICE DANG MD [address] 06-10-2024 04:32-0500 Systolic Blood Pressure Non-Invasive 118 mm[Hg] DR EUNICE DANG MD [address] [place] [address] 06-10-2024 04:26-0500 Reason For Taking VItal Signs DR EUNICE DANG MD [address] [place] [address] 06-10-2024 01:24-0500 Reason For Taking VItal Signs DR EUNICE DANG MD [address] [place] [address] 06-09-2024 16:16-0500 Heart rate 82 /min DR EUNICE DANG MD [address] 06-09-2024 16:16-0500 Mean blood pressure 96 mm[Hg] DR EUNICE DANG MD [address] 06-09-2024 10:26-0500 Body height 162.[address] EUNICE DANG MD [address] [place] [address] 06-09-2024 10:26-0500 Body weight [address] EUNICE DANG MD [address] [place] [address] 06-09-2024 10:26-0500 Body weight 49.55 kg/m2 DR EUNICE DANG MD [address] 06-09-2024 09:28-0500 Heart rate 100 /min DR EUNICE DANG MD [address] 06-09-2024 07:00-0500 Body temperature 98.5 [degF] Dr. Daniel Tan MD Work Phone: [facility] 06-09-2024 07:00-0500 Diastolic blood pressure 87 mm[Hg] Dr. Daniel Tan MD Work Phone: [facility] 06-09-2024 07:00-0500 Heart rate 98 /min Dr. Daniel Tan MD Work Phone: 5(434)488-758357 [address] 06-09-2024 07:00-0500 Respiratory rate 18 /min Dr. Daniel Tan MD Work Phone: 1(535)195-755930 [place] [address] 06-09-2024 07:00-0500 SaO2% (BldA) [Mass fraction] 98 % Dr. Daniel Tan MD Work Phone: 4(458)172-805630 [place] [address] 06-09-2024 07:00-0500 Systolic blood pressure 118 mm[Hg] Dr. Daniel Tan MD Work Phone: 7(688)709-371830 [place] [address] 06-08-2024 19:49-0500 Body height 165.[address] Daniel Tan MD Work Phone: 2(140)370-614130 [place] [address] 06-08-2024 19:49-0500 Body mass index (BMI) [Ratio] 49.6 kg/m2 Dr. Daniel Tan MD Work Phone: 8(664)[phone] [place] [address] 06-08-2024 19:49-0500 Body weight 135.[address] Daniel Tan MD Work Phone: 5(422)441-650528 [place] [address] 06-08-2024 19:49-0500 Inhaled oxygen flow rate 15 L/min Dr. Daniel Tan MD Work Phone: [facility] 04-04-2024 14:36-0500 Body mass index (BMI) [Ratio] 54.37 kg/m2 Wilmer Murillo MD Work Phone: [facility] 04-04-2024 14:36-0500 Body weight 137.44 kg Wilmer Murillo MD Work Phone: [facility] 04-04-2024 14:36-0500 Diastolic blood pressure 75 mm[Hg] Wilmer Murillo MD Work Phone: [facility] 04-04-2024 14:36-0500 Heart rate 83 /min Wilmer Murillo MD Work Phone: [facility] 04-04-2024 14:36-0500 SaO2% (BldA) [Mass fraction] 97 % Wilmer Murillo MD Work Phone: [facility] 04-04-2024 14:36-0500 Systolic blood pressure 112 mm[Hg] Wilmer Murillo MD Work Phone: [facility] 03-18-2024 15:34-0500 Body mass index (BMI) [Ratio] 54.19 kg/m2 Brigette Praisler-Wood DAIRY INSPECTOR.MILLER HEAD ASSISTANT WET PROCESS Work Phone: [facility] 03-18-2024 15:34-0500 Body temperature 98.71 [degF] Brigette Praisler-[place] DAIRY INSPECTOR.MILLER HEAD ASSISTANT WET PROCESS Work Phone: [facility] 03-18-2024 15:34-0500 Body weight 137 kg Brigette Praisler-[place] DAIRY INSPECTOR.MILLER HEAD ASSISTANT WET PROCESS Work Phone: [facility] 03-18-2024 15:34-0500 Diastolic blood pressure 72 mm[Hg] Brigette Praisler-[place] DAIRY INSPECTOR.MILLER HEAD ASSISTANT WET PROCESS Work Phone: [facility] 03-18-2024 15:34-0500 Heart rate 103 /min Brigette Praisler-[place] DAIRY INSPECTOR.MILLER HEAD ASSISTANT WET PROCESS Work Phone: [facility] 03-18-2024 15:34-0500 Respiratory rate 20 /min Brigette Praisler-Wood DAIRY INSPECTOR.MILLER HEAD ASSISTANT WET PROCESS Work Phone: [facility] 03-18-2024 15:34-0500 SaO2% (BldA) [Mass fraction] 99 % Brigette Praisler-Wood DAIRY INSPECTOR.MILLER HEAD ASSISTANT WET PROCESS Work Phone: [facility] 03-18-2024 15:34-0500 Systolic blood pressure 116 mm[Hg] Brigette Praisler-[place] DAIRY INSPECTOR.MILLER HEAD ASSISTANT WET PROCESS Work Phone: [facility] 02-17-2024 23:37-0400 Diastolic Blood Pressure Non-Invasive 86 mm[Hg] LIMA PATEL PA-C [facility] 02-17-2024 23:37-0400 Systolic Blood Pressure Non-Invasive 118 mm[Hg] LIMA PATEL PA-C [facility] 01-21-2024 13:13-0400 Body mass index (BMI) [Ratio] 55.77 kg/m2 Idalia Emmahof DAIRY INSPECTOR.MILLER HEAD ASSISTANT WET PROCESS Work Phone: [facility] 01-21-2024 13:13-0400 Body temperature 99.1 [degF] Idalia Tannhof DAIRY INSPECTOR.MILLER HEAD ASSISTANT WET PROCESS Work Phone: [facility] 01-21-2024 13:13-0400 Body weight 141 kg Idaliajose Carterhof DAIRY INSPECTOR.MILLER HEAD ASSISTANT WET PROCESS Work Phone: [facility] 01-21-2024 13:13-0400 Diastolic blood pressure 87 mm[Hg] Idalia Emmahof DAIRY INSPECTOR.MILLER HEAD ASSISTANT WET PROCESS Work Phone: [facility] 01-21-2024 13:13-0400 Heart rate 85 /min Idalia Carterhof DAIRY INSPECTOR.MILLER HEAD ASSISTANT WET PROCESS Work Phone: [facility] 01-21-2024 13:13-0400 Respiratory rate 16 /min Idalia Carterhof DAIRY INSPECTOR.MILLER HEAD ASSISTANT WET PROCESS Work Phone: [facility] 01-21-2024 13:13-0400 SaO2% (BldA) [Mass fraction] 97 % Idalia Carterhof DAIRY INSPECTOR.MILLER HEAD ASSISTANT WET PROCESS Work Phone: [facility] 01-21-2024 13:13-0400 Systolic blood pressure 128 mm[Hg] Idalia Carterhof DAIRY INSPECTOR.MILLER HEAD ASSISTANT WET PROCESS Work Phone: [facility] 12-31-2023 10:30-0400 Body mass index (BMI) [Ratio] 56.56 kg/m2 Idaliajose Carterhof DAIRY INSPECTOR.MILLER HEAD ASSISTANT WET PROCESS Work Phone: [facility] 12-31-2023 10:30-0400 Body temperature 99.39 [degF] Idalia Tannhof DAIRY INSPECTOR.MILLER HEAD ASSISTANT WET PROCESS Work Phone: [facility] 12-31-2023 10:30-0400 Body weight 143 kg Idalia Carterhof DAIRY INSPECTOR.MILLER HEAD ASSISTANT WET PROCESS Work Phone: [facility] 12-31-2023 10:30-0400 Diastolic blood pressure 80 mm[Hg] Idalia Carterhof DAIRY INSPECTOR.MILLER HEAD ASSISTANT WET PROCESS Work Phone: [facility] 12-31-2023 10:30-0400 Heart rate 80 /min Idalia Carterhof DAIRY INSPECTOR.MILLER HEAD ASSISTANT WET PROCESS Work Phone: [facility] 12-31-2023 10:30-0400 Respiratory rate 16 /min Idalia Carterhof DAIRY INSPECTOR.MILLER HEAD ASSISTANT WET PROCESS Work Phone: [facility] 12-31-2023 10:30-0400 SaO2% (BldA) [Mass fraction] 97 % Idalia Carterhof DAIRY INSPECTOR.MILLER HEAD ASSISTANT WET PROCESS Work Phone: [facility] 12-31-2023 10:30-0400 Systolic blood pressure 120 mm[Hg] Idalia Carterhof DAIRY INSPECTOR.MILLER HEAD ASSISTANT WET PROCESS Work Phone: [facility] 11-10-2023 11:46-0400 Body mass index (BMI) [Ratio] 56.7 kg/m2 Chaim Sullivanil DAIRY INSPECTOR.MILLER HEAD ASSISTANT WET PROCESS Work Phone: [facility] 11-10-2023 11:46-0400 Body temperature 99.5 [degF] Chaim Jose DAIRY INSPECTOR.MILLER HEAD ASSISTANT WET PROCESS Work Phone: [facility] 11-10-2023 11:46-0400 Body weight 143.34 kg Chaim Jose DAIRY INSPECTOR.MILLER HEAD ASSISTANT WET PROCESS Work Phone: [facility] 11-10-2023 11:46-0400 Diastolic blood pressure 77 mm[Hg] Chaim Jose DAIRY INSPECTOR.MILLER HEAD ASSISTANT WET PROCESS Work Phone: [facility] 11-10-2023 11:46-0400 Heart rate 92 /min Chaim Sullivanil DAIRY INSPECTOR.MILLER HEAD ASSISTANT WET PROCESS Work Phone: [facility] 11-10-2023 11:46-0400 Respiratory rate 21 /min Chaim Jose DAIRY INSPECTOR.MILLER HEAD ASSISTANT WET PROCESS Work Phone: [facility] 11-10-2023 11:46-0400 SaO2% (BldA) [Mass fraction] 98 % Chaim Garcia DAIRY INSPECTOR.MILLER HEAD ASSISTANT WET PROCESS Work Phone: [facility] 11-10-2023 11:46-0400 Systolic blood pressure 112 mm[Hg] Chaim Garcia DAIRY INSPECTOR.MILLER HEAD ASSISTANT WET PROCESS Work Phone: [facility] 10-09-2023 11:10-0400 Body mass index (BMI) [Ratio] 56.77 kg/m2 Daniel Tan MD Work Phone: [facility] 10-09-2023 11:10-0400 Body temperature 98.01 [degF] Daniel Tna MD Work Phone: [facility] 10-09-2023 11:10-0400 Body weight 143.52 kg Daniel Tan MD Work Phone: [facility] 10-09-2023 11:10-0400 Diastolic blood pressure 88 mm[Hg] Daniel Tan MD Work Phone: [facility] 10-09-2023 11:10-0400 Heart rate 80 /min Daniel Tan MD Work Phone: [facility] 10-09-2023 11:10-0400 Respiratory rate 20 /min Daniel Tan MD Work Phone: [facility] 10-09-2023 11:10-0400 SaO2% (BldA) [Mass fraction] 96 % Daniel Tan MD Work Phone: [facility] 10-09-2023 11:10-0400 Systolic blood pressure 130 mm[Hg] Daniel Tan MD Work Phone: [facility] 09-23-2023 13:42-0400 Body mass index (BMI) [Ratio] 57.36 kg/m2 Noy Moss PA-C Work Phone: [facility] 09-23-2023 13:42-0400 Body temperature 98.49 [degF] Noy Athy PA-C Work Phone: [facility] 09-23-2023 13:42-0400 Body weight 145 kg Noy Athy PA-C Work Phone: [facility] 09-23-2023 13:42-0400 Diastolic blood pressure 80 mm[Hg] Noy Athy PA-C Work Phone: [facility] 09-23-2023 13:42-0400 Heart rate 100 /min Noy Athy PA-C Work Phone: [facility] 09-23-2023 13:42-0400 Respiratory rate 20 /min Noy Athy PA-C Work Phone: [facility] 09-23-2023 13:42-0400 SaO2% (BldA) [Mass fraction] 97 % Noy Athy PA-C Work Phone: [facility] 09-23-2023 13:42-0400 Systolic blood pressure 128 mm[Hg] Noy Athy PA-C Work Phone: [facility] 09-01-2023 14:44-0400 Diastolic blood pressure 80 mm[Hg] Daniel Tan MD Work Phone: [facility] 09-01-2023 14:44-0400 Heart rate 80 /min Daniel Tan MD Work Phone: [facility] 09-01-2023 14:44-0400 Respiratory rate 18 /min Daniel Tan MD Work Phone: [facility] 09-01-2023 14:44-0400 Systolic blood pressure 130 mm[Hg] Daniel Tan MD Work Phone: [facility] 08-31-2023 21:24-0400 Body temperature 97 [degF] [facility] 08-31-2023 21:24-0400 Diastolic blood pressure 87 mm[Hg] [facility] 08-31-2023 21:24-0400 Heart rate 74 /min [facility] 08-31-2023 21:24-0400 Respiratory rate 18 /min [facility] 08-31-2023 21:24-0400 SaO2% (BldA) [Mass fraction] 98 % [facility] 08-31-2023 21:24-0400 Systolic blood pressure 136 mm[Hg] [facility] 08-31-2023 17:45-0400 Body height 165.1 cm [facility] 08-31-2023 17:45-0400 Body mass index (BMI) [Ratio] 53.7 kg/m2 [facility] 08-31-2023 17:45-0400 Body weight 146.56 kg [facility] 08-11-2023 13:43-0400 Body mass index (BMI) [Ratio] 58.4 kg/m2 Daniel Tan MD Work Phone: [facility] 08-11-2023 13:43-0400 Body temperature 97.5 [degF] Daniel Tan MD Work Phone: [facility] 08-11-2023 13:43-0400 Body weight 147.65 kg Daniel Tan MD Work Phone: [facility] 08-11-2023 13:43-0400 Diastolic blood pressure 78 mm[Hg] Daniel Tan MD Work Phone: [facility] 08-11-2023 13:43-0400 Heart rate 76 /min Daniel Tan MD Work Phone: [facility] 08-11-2023 13:43-0400 Respiratory rate 18 /min Daniel Tan MD Work Phone: [facility] 08-11-2023 13:43-0400 SaO2% (BldA) [Mass fraction] 100 % Daniel Tan MD Work Phone: [facility] 08-11-2023 13:43-0400 Systolic blood pressure 128 mm[Hg] Daniel Tan MD Work Phone: [facility] 07-28-2023 13:43-0400 Body weight 148.05 kg Justine Pitts MD Work Phone: [facility] 07-28-2023 13:43-0400 Diastolic blood pressure 64 mm[Hg] Justine Pitts MD Work Phone: [facility] 07-28-2023 13:43-0400 Systolic blood pressure 120 mm[Hg] Justine Pitts MD Work Phone: [facility] 07-27-2023 12:50-0400 Body weight 147.42 kg Wilmer Murillo MD Work Phone: [facility] 07-27-2023 12:50-0400 Diastolic blood pressure 80 mm[Hg] Wilmer Murillo MD Work Phone: [facility] 07-27-2023 12:50-0400 Heart rate 87 /min Wilmer Murillo MD Work Phone: [facility] 07-27-2023 12:50-0400 SaO2% (BldA) [Mass fraction] 98 % Wilmer Murillo MD Work Phone: [facility] 07-27-2023 12:50-0400 Systolic blood pressure 124 mm[Hg] Wilmer Murillo MD Work Phone: [facility] 07-08-2023 20:07-0400 Body temperature 98 [degF] [facility] 07-08-2023 20:07-0400 Diastolic blood pressure 55 mm[Hg] [facility] 07-08-2023 20:07-0400 Heart rate 92 /min [facility] 07-08-2023 20:07-0400 Respiratory rate 28 /min [facility] 07-08-2023 20:07-0400 SaO2% (BldA) [Mass fraction] 98 % [facility] 07-08-2023 20:07-0400 Systolic blood pressure 131 mm[Hg] [facility] 07-08-2023 15:51-0400 Body height 165.1 cm [facility] 07-08-2023 15:51-0400 Body mass index (BMI) [Ratio] 55 kg/m2 [facility] 07-08-2023 15:51-0400 Body weight 149.9 kg [facility] 07-08-2023 13:48-0400 Body temperature 98.91 [degF] Idalia Tannhof DAIRY INSPECTOR.MILLER HEAD ASSISTANT WET PROCESS Work Phone: [facility] 07-08-2023 13:48-0400 Body weight 148.78 kg Idalia Tannhof DAIRY INSPECTOR.MILLER HEAD ASSISTANT WET PROCESS Work Phone: [facility] 07-08-2023 13:48-0400 Diastolic blood pressure 88 mm[Hg] Idalia Tannhof DAIRY INSPECTOR.MILLER HEAD ASSISTANT WET PROCESS Work Phone: [facility] 07-08-2023 13:48-0400 Heart rate 97 /min Idalia Tannhof DAIRY INSPECTOR.MILLER HEAD ASSISTANT WET PROCESS Work Phone: [facility] 07-08-2023 13:48-0400 Respiratory rate 20 /min Idalia Tannhof DAIRY INSPECTOR.MILLER HEAD ASSISTANT WET PROCESS Work Phone: [facility] 07-08-2023 13:48-0400 SaO2% (BldA) [Mass fraction] 99 % Idalia Tannhof DAIRY INSPECTOR.MILLER HEAD ASSISTANT WET PROCESS Work Phone: [facility] 07-08-2023 13:48-0400 Systolic blood pressure 120 mm[Hg] Idalia Tannhof DAIRY INSPECTOR.MILLER HEAD ASSISTANT WET PROCESS Work Phone: [facility] 05-27-2023 09:40-0500 Body temperature 98.4 [degF] Idalia Tannhof DAIRY INSPECTOR.MILLER HEAD ASSISTANT WET PROCESS Work Phone: [facility] 05-27-2023 09:40-0500 Body weight 151.05 kg Idalia Tannhof DAIRY INSPECTOR.MILLER HEAD ASSISTANT WET PROCESS Work Phone: [facility] 05-27-2023 09:40-0500 Diastolic blood pressure 80 mm[Hg] Idalia Tannhof DAIRY INSPECTOR.MILLER HEAD ASSISTANT WET PROCESS Work Phone: [facility] 05-27-2023 09:40-0500 Heart rate 93 /min Idalia Tannhof DAIRY INSPECTOR.MILLER HEAD ASSISTANT WET PROCESS Work Phone: [facility] 05-27-2023 09:40-0500 Respiratory rate 20 /min Idalia Tannhof DAIRY INSPECTOR.MILLER HEAD ASSISTANT WET PROCESS Work Phone: [facility] 05-27-2023 09:40-0500 SaO2% (BldA) [Mass fraction] 98 % Idalia Lewis APRN.MILLER HEAD ASSISTANT WET PROCESS Work Phone: [facility] 05-27-2023 09:40-0500 Systolic blood pressure 126 mm[Hg] Idalia Lewis APRN.MILLER HEAD ASSISTANT WET PROCESS Work Phone: [facility] 05-14-2023 17:28-0500 Heart rate 65 /min Dr. Daniel Tan Work Phone: [facility] [place] 05-14-2023 17:28-0500 Respiratory rate 16 /min Dr. Daniel Tan Work Phone: [facility] [place] 05-14-2023 17:28-0500 SaO2% (BldA) [Mass fraction] 99 % Dr. Daniel Tan Work Phone: [facility] [place] 05-14-2023 16:34-0500 Diastolic blood pressure 70 mm[Hg] Dr. Daniel Tan Work Phone: [facility] [place] 05-14-2023 16:34-0500 Systolic blood pressure 118 mm[Hg] Dr. Daniel Tan Work Phone: [facility] [place] 05-14-2023 14:36-0500 Body height 167.[address] Daniel Tan Work Phone: [facility] [place] 05-14-2023 14:36-0500 Body temperature 97.9 [degF] Dr. Daniel Tan Work Phone: [facility] [place] 02-26-2023 13:12-0500 Body height 167.[address] Daniel Tan Work Phone: [facility] [place] 02-26-2023 13:12-0500 Body weight 154.[address] Daniel Tan Work Phone: [facility] [place] 02-26-2023 13:12-0500 Heart rate 101 /min Dr. Daniel Tan Work Phone: [facility] [place] 02-26-2023 13:12-0500 SaO2% (BldA) [Mass fraction] 97 % Dr. Daniel Tan Work Phone: [facility] [place] 02-17-2023 05:52-0400 Body mass index (BMI) [Ratio] 54.3 kg/m2 Dr. Daniel Tan Work Phone: [facility] [place] 02-17-2023 05:52-0400 Body temperature 97 [degF] Dr. Daniel Tan Work Phone: [facility] [place] 02-17-2023 05:52-0400 Body weight 148.[address] Daniel Tan Work Phone: [facility] [place] 02-17-2023 05:52-0400 Diastolic blood pressure 82 mm[Hg] Dr. Daniel Tan Work Phone: [facility] [place] 02-17-2023 05:52-0400 Heart rate 99 /min Dr. Daniel Tan Work Phone: [facility] [place] 02-17-2023 05:52-0400 Respiratory rate 22 /min Dr. Daniel Tan Work Phone: [facility] [place] 02-17-2023 05:52-0400 SaO2% (BldA) [Mass fraction] 97 % Dr. Daniel Tan Work Phone: [facility] [place] 02-17-2023 05:52-0400 Systolic blood pressure 118 mm[Hg] Dr. Daniel Tan Work Phone: [facility] [place] 01-30-2023 14:53-0400 Diastolic blood pressure 82 mm[Hg] Daniel Tan MD Work Phone: [facility] 01-30-2023 14:53-0400 Heart rate 82 /min Daniel Tan MD Work Phone: [facility] 01-30-2023 14:53-0400 Respiratory rate 18 /min Daniel Tan MD Work Phone: [facility] 01-30-2023 14:53-0400 Systolic blood pressure 118 mm[Hg] Daniel Tan MD Work Phone: [facility] 01-06-2023 13:41-0400 Body mass index (BMI) [Ratio] 54.7 kg/m2 Dr. Daniel Tan Work Phone: [facility] [place] 01-06-2023 13:41-0400 Body weight 149.[address] Daniel Tan Work Phone: [facility] [place] 01-06-2023 13:41-0400 Diastolic blood pressure 77 mm[Hg] Dr. Daniel Tan Work Phone: [facility] [place] 01-06-2023 13:41-0400 Heart rate 77 /min Dr. Daniel Tan Work Phone: [facility] [place] 01-06-2023 13:41-0400 Respiratory rate 20 /min Dr. Daniel Tan Work Phone: [facility] [place] 01-06-2023 13:41-0400 Systolic blood pressure 109 mm[Hg] Dr. Daniel Tan Work Phone: [facility] [place] 12-24-2022 11:28-0400 Body height 159 cm Idalia Lewis DAIRY INSPECTOR.MILLER HEAD ASSISTANT WET PROCESS Work Phone: [facility] 12-24-2022 11:28-0400 Body weight 151.05 kg Idalia Lewis DAIRY INSPECTOR.MILLER HEAD ASSISTANT WET PROCESS Work Phone: [facility] 12-24-2022 11:28-0400 Diastolic blood pressure 72 mm[Hg] Idalia Lewis DAIRY INSPECTOR.MILLER HEAD ASSISTANT WET PROCESS Work Phone: [facility] 12-24-2022 11:28-0400 Heart rate 78 /min Idalia Lewis DAIRY INSPECTOR.MILLER HEAD ASSISTANT WET PROCESS Work Phone: [facility] 12-24-2022 11:28-0400 Respiratory rate 20 /min Idalia Lewis DAIRY INSPECTOR.MILLER HEAD ASSISTANT WET PROCESS Work Phone: [facility] 12-24-2022 11:28-0400 SaO2% (BldA) [Mass fraction] 97 % Idalia Lewis DAIRY INSPECTOR.MILLER HEAD ASSISTANT WET PROCESS Work Phone: [facility] 12-24-2022 11:28-0400 Systolic blood pressure 120 mm[Hg] Idalia Tannhof DAIRY INSPECTOR.MILLER HEAD ASSISTANT WET PROCESS Work Phone: [facility] 12-11-2022 14:05-0400 Body temperature 98.71 [degF] Idalia Carterhof DAIRY INSPECTOR.MILLER HEAD ASSISTANT WET PROCESS Work Phone: [facility] 12-11-2022 14:05-0400 Body weight 150.59 kg Idalia Carterhof DAIRY INSPECTOR.MILLER HEAD ASSISTANT WET PROCESS Work Phone: [facility] 12-11-2022 14:05-0400 Diastolic blood pressure 74 mm[Hg] Idalia Carterhof DAIRY INSPECTOR.MILLER HEAD ASSISTANT WET PROCESS Work Phone: [facility] 12-11-2022 14:05-0400 Heart rate 78 /min Idalia Carterhof DAIRY INSPECTOR.MILLER HEAD ASSISTANT WET PROCESS Work Phone: [facility] 12-11-2022 14:05-0400 Respiratory rate 22 /min Idalia Carterhof DAIRY INSPECTOR.MILLER HEAD ASSISTANT WET PROCESS Work Phone: [facility] 12-11-2022 14:05-0400 Systolic blood pressure 116 mm[Hg] Idalia Carterhof DAIRY INSPECTOR.MILLER HEAD ASSISTANT WET PROCESS Work Phone: [facility] 09-18-2022 17:40-0400 Body height 165.1 cm [facility] 09-18-2022 17:40-0400 Body temperature 98.2 [degF] [facility] 09-18-2022 17:40-0400 Diastolic blood pressure 76 mm[Hg] [facility] [place] 09-18-2022 17:40-0400 Heart rate 86 /min [facility] 09-18-2022 17:40-0400 Respiratory rate 17 /min [facility] 09-18-2022 17:40-0400 SaO2% (BldA) [Mass fraction] 99 % [facility] [place] 09-18-2022 17:40-0400 Systolic blood pressure 112 mm[Hg] [facility] [place] 09-18-2022 16:35-0400 Body temperature 97.9 [degF] Daniel Tan MD Work Phone: [facility] 09-18-2022 16:35-0400 Body weight 151.32 kg Daniel Tan MD Work Phone: [facility] 09-18-2022 16:35-0400 Diastolic blood pressure 88 mm[Hg] Daniel Tan MD Work Phone: [facility] 09-18-2022 16:35-0400 Heart rate 96 /min Daniel Tan MD Work Phone: [facility] 09-18-2022 16:35-0400 Respiratory rate 20 /min Daniel Tan MD Work Phone: [facility] 09-18-2022 16:35-0400 SaO2% (BldA) [Mass fraction] 97 % Daniel Tan MD Work Phone: [facility] 09-18-2022 16:35-0400 Systolic blood pressure 128 mm[Hg] Daniel Tan MD Work Phone: [facility] 07-29-2022 13:58-0400 Body temperature 98.71 [degF] Chaim Jose DAIRY INSPECTOR.MILLER HEAD ASSISTANT WET PROCESS Work Phone: [facility] 07-29-2022 13:58-0400 Body weight 152.41 kg Chaim Jose DAIRY INSPECTOR.MILLER HEAD ASSISTANT WET PROCESS Work Phone: [facility] 07-29-2022 13:58-0400 Diastolic blood pressure 86 mm[Hg] Chaim Jose DAIRY INSPECTOR.MILLER HEAD ASSISTANT WET PROCESS Work Phone: [facility] 07-29-2022 13:58-0400 Heart rate 86 /min Chaim Jose DAIRY INSPECTOR.MILLER HEAD ASSISTANT WET PROCESS Work Phone: [facility] 07-29-2022 13:58-0400 Respiratory rate 20 /min Chaim Jose DAIRY INSPECTOR.MILLER HEAD ASSISTANT WET PROCESS Work Phone: [facility] 07-29-2022 13:58-0400 SaO2% (BldA) [Mass fraction] 96 % Chaim Jose DAIRY INSPECTOR.MILLER HEAD ASSISTANT WET PROCESS Work Phone: [facility] 04-11-2023 13:58-0400 Systolic blood pressure 106 mm[Hg] Chaim Garcia APRN.CNP Work Phone: [facility] 07-14-2022 23:41-0400 Diastolic blood pressure 70 mm[Hg] [facility] [place] 07-14-2022 23:41-0400 Heart rate 72 /min [facility] 07-14-2022 23:41-0400 Respiratory rate 18 /min [facility] 07-14-2022 23:41-0400 SaO2% (BldA) [Mass fraction] 97 % [facility] [place] 07-14-2022 23:41-0400 Systolic blood pressure 100 mm[Hg] [facility] [place] 07-14-2022 20:35-0400 Inhaled oxygen flow rate 1 L/min [facility] [place] 07-14-2022 16:42-0400 Body height 165.1 cm [facility] 07-14-2022 16:42-0400 Body mass index (BMI) [Ratio] 55.8 kg/m2 [facility] [place] 07-14-2022 16:42-0400 Body temperature 98.6 [degF] [facility] 07-14-2022 16:42-0400 Body weight 152.22 kg [facility] 06-16-2022 11:53-0500 Body temperature 97.9 [degF] Krislyn Aberegg PA Work Phone: [facility] 06-16-2022 11:53-0500 Body weight 154.22 kg Krislyn Aberegg PA Work Phone: [facility] 06-16-2022 11:53-0500 Diastolic blood pressure 72 mm[Hg] Krislyn Aberegg PA Work Phone: [facility] 06-16-2022 11:53-0500 Heart rate 82 /min Krislyn Aberegg PA Work Phone: [facility] 06-16-2022 11:53-0500 Respiratory rate 18 /min Krislyn Aberegg PA Work Phone: [facility] 06-16-2022 11:53-0500 SaO2% (BldA) [Mass fraction] 96 % Rolf Park PA Work Phone: [facility] 06-16-2022 11:53-0500 Systolic blood pressure 122 mm[Hg] Rolf Park PA Work Phone: [facility] 05-16-2022 11:48-0500 Body temperature 97.5 [degF] Idalia Tannhof DAIRY INSPECTOR.MILLER HEAD ASSISTANT WET PROCESS Work Phone: [facility] 05-16-2022 11:48-0500 Body weight 151.5 kg Idalia Tannhof DAIRY INSPECTOR.MILLER HEAD ASSISTANT WET PROCESS Work Phone: [facility] 05-16-2022 11:48-0500 Diastolic blood pressure 62 mm[Hg] Idalia Tannhof DAIRY INSPECTOR.MILLER HEAD ASSISTANT WET PROCESS Work Phone: [facility] 05-16-2022 11:48-0500 Heart rate 90 /min Idalia Tannhof DAIRY INSPECTOR.MILLER HEAD ASSISTANT WET PROCESS Work Phone: [facility] 05-16-2022 11:48-0500 Respiratory rate 20 /min Idalia Tannhof DAIRY INSPECTOR.MILLER HEAD ASSISTANT WET PROCESS Work Phone: [facility] 05-16-2022 11:48-0500 SaO2% (BldA) [Mass fraction] 98 % Idalia Tannhof DAIRY INSPECTOR.MILLER HEAD ASSISTANT WET PROCESS Work Phone: [facility] 05-16-2022 11:48-0500 Systolic blood pressure 120 mm[Hg] Idalia Tannhof DAIRY INSPECTOR.MILLER HEAD ASSISTANT WET PROCESS Work Phone: [facility] 05-07-2022 14:59-0500 Body height 165.1 cm Mary Coyner DAIRY INSPECTOR.MILLER HEAD ASSISTANT WET PROCESS Work Phone: [facility] 05-07-2022 14:59-0500 Body weight 151.96 kg Mary Coyner DAIRY INSPECTOR.MILLER HEAD ASSISTANT WET PROCESS Work Phone: [facility] 04-25-2022 20:21-0500 Diastolic blood pressure 75 mm[Hg] Dr. Daniel Tan Work Phone: [facility] [place] 04-25-2022 20:21-0500 Heart rate 78 /min Dr. Daniel Tan Work Phone: [facility] [place] 04-25-2022 20:21-0500 Respiratory rate 18 /min Dr. Daniel Tan Work Phone: [facility] [place] 04-25-2022 20:21-0500 Systolic blood pressure 115 mm[Hg] Dr. Daniel Tan Work Phone: [facility] [place] 04-25-2022 15:50-0500 Body height 165.[address] Daniel Tan Work Phone: [facility] [place] Work Phone: 04-25-2022 15:50-0500 Body mass index (BMI) [Ratio] 55.7 kg/m2 Dr. Daniel Tan Work Phone: [facility] [place] 04-25-2022 15:50-0500 Body temperature 97.9 [degF] Dr. Daniel Tan Work Phone: [facility] [place] 04-25-2022 15:50-0500 Body weight 151.[address] Daniel Tan Work Phone: [facility] [place] 04-25-2022 15:50-0500 SaO2% (BldA) [Mass fraction] 99 % Dr. Daniel Tan Work Phone: [facility] [place] 04-10-2022 14:02-0500 Body temperature 98.91 [degF] Idalia Lewis APRN.MILLER HEAD ASSISTANT WET PROCESS Work Phone: [facility] 04-10-2022 14:02-0500 Body weight 151.96 kg Idalia Lewis DAIRY INSPECTOR.MILLER HEAD ASSISTANT WET PROCESS Work Phone: [facility] 04-10-2022 14:02-0500 Diastolic blood pressure 80 mm[Hg] Idalia Lewis APRN.MILLER HEAD ASSISTANT WET PROCESS Work Phone: [facility] 04-10-2022 14:02-0500 Heart rate 90 /min Idalia Lewis APRN.MILLER HEAD ASSISTANT WET PROCESS Work Phone: [facility] 04-10-2022 14:02-0500 Respiratory rate 16 /min Idalia Tannhof DAIRY INSPECTOR.MILLER HEAD ASSISTANT WET PROCESS Work Phone: [facility] 04-10-2022 14:02-0500 SaO2% (BldA) [Mass fraction] 98 % Idalia Tannhof DAIRY INSPECTOR.MILLER HEAD ASSISTANT WET PROCESS Work Phone: [facility] 04-10-2022 14:02-0500 Systolic blood pressure 110 mm[Hg] Idalia Tannhof DAIRY INSPECTOR.MILLER HEAD ASSISTANT WET PROCESS Work Phone: [facility] 03-05-2022 14:32-0500 Body weight 151.05 kg Idalia Tannhof DAIRY INSPECTOR.MILLER HEAD ASSISTANT WET PROCESS Work Phone: [facility] 03-05-2022 14:32-0500 Diastolic blood pressure 88 mm[Hg] Idalia Tannhof DAIRY INSPECTOR.MILLER HEAD ASSISTANT WET PROCESS Work Phone: [facility] 03-05-2022 14:32-0500 Heart rate 88 /min Idalia Tannhof DAIRY INSPECTOR.MILLER HEAD ASSISTANT WET PROCESS Work Phone: [facility] 03-05-2022 14:32-0500 Respiratory rate 20 /min Idalia Tannhof DAIRY INSPECTOR.MILLER HEAD ASSISTANT WET PROCESS Work Phone: [facility] 03-05-2022 14:32-0500 SaO2% (BldA) [Mass fraction] 98 % Idalia Tannhof DAIRY INSPECTOR.MILLER HEAD ASSISTANT WET PROCESS Work Phone: [facility] 03-05-2022 14:32-0500 Systolic blood pressure 120 mm[Hg] Idalia Tannhof DAIRY INSPECTOR.MILLER HEAD ASSISTANT WET PROCESS Work Phone: [facility] 03-03-2022 13:32-0500 Diastolic blood pressure 70 mm[Hg] Dr. Daniel Tan Work Phone: [facility] [place] Work Phone: 03-03-2022 13:32-0500 Heart rate 74 /min Dr. Daniel Tan Work Phone: [facility] [place] Work Phone: 03-03-2022 13:32-0500 Respiratory rate 14 /min Dr. Daniel Tan Work Phone: [facility] [place] Work Phone: 03-03-2022 13:32-0500 SaO2% (BldA) [Mass fraction] 95 % Dr. Daniel Tan Work Phone: [facility] [place] Work Phone: 03-03-2022 13:32-0500 Systolic blood pressure 110 mm[Hg] Dr. Daniel Tan Work Phone: [facility] [place] Work Phone: 03-03-2022 12:47-0500 Body height 165.[address] Daniel Tan Work Phone: [facility] [place] Work Phone: 03-03-2022 12:47-0500 Body mass index (BMI) [Ratio] 56.5 kg/m2 Dr. Daniel Tan Work Phone: [facility] [place] Work Phone: 03-03-2022 12:47-0500 Body temperature 97.3 [degF] Dr. Daniel Tan Work Phone: [facility] [place] Work Phone: 03-03-2022 12:47-0500 Body weight 154.[address] Daniel Tan Work Phone: [facility] [place] Work Phone: 02-11-2022 13:30-0400 Body height 162.[address] Daniel Tan Work Phone: [facility] [place] Work Phone: 02-11-2022 13:30-0400 Body mass index (BMI) [Ratio] 56.9 kg/m2 Dr. Daniel Tan Work Phone: [facility] [place] Work Phone: 02-11-2022 13:30-0400 Body temperature 97.7 [degF] Dr. Daniel Tan Work Phone: [facility] [place] Work Phone: 02-11-2022 13:30-0400 Body weight 150.[address] Daniel Tan Work Phone: [facility] [place] Work Phone: 02-11-2022 13:30-0400 Diastolic blood pressure 62 mm[Hg] Dr. Daniel Tan Work Phone: [facility] [place] Work Phone: 02-11-2022 13:30-0400 Heart rate 93 /min Dr. Daniel Tan Work Phone: [facility] [place] Work Phone: 02-11-2022 13:30-0400 Respiratory rate 18 /min Dr. Daniel Tan Work Phone: [facility] [place] Work Phone: 02-11-2022 13:30-0400 SaO2% (BldA) [Mass fraction] 96 % Dr. Daniel Tan Work Phone: [facility] [place] Work Phone: 02-11-2022 13:30-0400 Systolic blood pressure 100 mm[Hg] Dr. Daniel Tan Work Phone: [facility] [place] Work Phone: 01-30-2022 12:59-0400 Body mass index (BMI) [Ratio] 56.9 kg/m2 Dr. Daniel Tan Work Phone: [facility] [place] Work Phone: 01-30-2022 12:59-0400 Body weight 155.[address] Daniel Tan Work Phone: [facility] [place] Work Phone: 01-30-2022 12:59-0400 Diastolic blood pressure 80 mm[Hg] Dr. Daniel Tan Work Phone: [facility] [place] Work Phone: 01-30-2022 12:59-0400 Heart rate 64 /min Dr. Daniel Tan Work Phone: [facility] [place] Work Phone: 01-30-2022 12:59-0400 Respiratory rate 16 /min Dr. Daniel Tan Work Phone: [facility] [place] Work Phone: 01-30-2022 12:59-0400 Systolic blood pressure 120 mm[Hg] Dr. Daniel Tan Work Phone: [facility] [place] Work Phone: 12-09-2021 14:30-0400 Body temperature 97.81 [degF] Daniel Tan MD Work Phone: [facility] 12-09-2021 14:30-0400 Body weight 153.91 kg Daniel Tan MD Work Phone: [facility] 12-09-2021 14:30-0400 Diastolic blood pressure 70 mm[Hg] Daniel Tan MD Work Phone: [facility] 12-09-2021 14:30-0400 Heart rate 80 /min Daniel Tan MD Work Phone: [facility] 12-09-2021 14:30-0400 Respiratory rate 18 /min Daniel Tan MD Work Phone: [facility] 12-09-2021 14:30-0400 Systolic blood pressure 118 mm[Hg] Daniel Tan MD Work Phone: [facility] Encounters Encounter Date Encounter Type Care Provider Facility Start: 11-28-2024 End: 11-28-2024 Patient encounter procedure Ashanti Shankar APRN.MILLER HEAD ASSISTANT WET PROCESS Work Phone: OB/Gynecology Comment on above: Menorrhagia with irr egular cycle (Primary Dx) Start: 11-09-2024 End: 11-09-2024 ambulatory JACKI PODLOGAR Facility:[facility] Start: 11-09-2024 End: 11-09-2024 Patient encounter procedure Jacki Zaragoza APRN.MILLER HEAD ASSISTANT WET PROCESS Work Phone: [facility] Comment on above: Annual physical exam (Primary Dx); Acute cough; Chronic pain of both knees; Class 3 severe obesity with body mass index (BMI) of 50.0 to 59.9 in adult, unspecified obesity type, unspecified whether serious comorbidity present (HCC); Seizure disorder (HCC); Mild intermittent asthma with status asthmaticus (HCC); Delusional disorders (HCC); Conversion disorder Start: 11-07-2024 End: 11-07-2024 Telephone encounter Jacki Zaragoza APRN.MILLER HEAD ASSISTANT WET PROCESS Work Phone: [facility] Start: 10-22-2024 End: 10-24-2024 Telephone encounter Daniel Tan MD Work Phone: [facility] Comment on above: Internal Referrals/r esources Start: 10-17-2024 End: 10-17-2024 Refill Daniel Tan MD Work Phone: [facility] Comment on above: Refill Request Start: 10-04-2024 End: 10-04-2024 Telephone encounter Daniel Tan MD Work Phone: [facility] Comment on above: Patient Update Start: 09-26-2024 End: 09-26-2024 Telephone encounter Daniel Tan MD Work Phone: [facility] Comment on above: Patient Update Start: 09-19-2024 End: 09-19-2024 Telephone encounter Daniel Tan MD Work Phone: [facility] Comment on above: Patient Update Start: 09-14-2024 End: 09-16-2024 Telephone encounter Daniel Tan MD Work Phone: [address] [place] [address] Comment on above: Patient Update Start: 09-10-2024 End: 09-10-2024 Emergency department patient visit Daniel Tan Facility:[facility] [place] Start: 09-05-2024 End: 09-05-2024 Office outpatient visit 25 minutes Daniel Tan MD Work Phone: [facility] Comment on above: Seizure disorder (HC C) (Primary Dx); Moderate persistent asthma with acute exacerbation (HCC); Acute pain of left knee; Acute left ankle pain; Acute bronchitis, unspecified organism Start: 09-05-2024 End: 09-05-2024 ambulatory DANIEL TAN Facility:[facility] Start: 08-25-2024 End: 08-25-2024 Telephone encounter Daniel Tan MD Work Phone: [facility] Comment on above: Patient Question Start: 08-20-2024 End: 08-20-2024 Refill Daniel Tan MD Work Phone: [facility] Comment on above: Medication Problem ( out of psych and seizure meds) Refill Request Start: 08-18-2024 End: 08-18-2024 Telephone encounter Daniel Tan MD Work Phone: [facility] Comment on above: referral issue (Pain Management Dr. Duque) Start: 08-12-2024 End: 10-12-2024 Follow-up encounter Sabiha Vargas LPN [facility] Start: 08-12-2024 ambulatory JACKI PODLOGAR Facility :[facility] Start: 08-12-2024 End: 08-12-2024 ambulatory [facility] Facility:[facility] Start: 08-04-2024 End: 08-04-2024 Telephone encounter Daniel Tan MD Work Phone: [facility] Comment on above: Non-[facility] Lab Results Referral Request Start: 07-25-2024 End: 07-25-[address] Daniel Tan MD Work Phone: [facility] Work Phone: Start: 07-25-2024 End: 07-25-[address] Daniel Tan MD Work Phone: -Laboratory, Specimen Work Phone: Start: 07-25-2024 End: 07-25-2024 ambulatory Daniel Tan Facility:[facility] Start: 07-07-2024 End: 07-07-2024 Telephone encounter Daniel Tan MD Work Phone: [facility] Comment on above: Medication Problem Start: 06-28-2024 End: 07-29-2024 ambulatory Daniel Tan MD Work Phone: [facility] Start: 06-21-2024 End: 06-21-2024 Refill Daniel Tan MD Work Phone: [facility] Comment on above: Refill Request Start: 06-13-2024 End: 06-13-2024 Telephone encounter Wilmer Murillo MD Work Phone: Cardiology Comment on above: [facility] Start: 06-09-2024 End: 06-10-2024 Evaluation and management of inpatient MILAGRO REBOLLEDO MD Facility:A Start: 06-08-2024 End: 06-09-2024 Emergency department patient visit Dr. Al Argueta DO -Emergency Department Work Phone: Start: 04-04-2024 End: 04-04-2024 ambulatory DANIEL TAN Facility:[facility] Start: 04-04-2024 End: 04-04-2024 Patient encounter procedure Wilmer Murillo MD Work Phone: Cardiology Comment on above: Other chest pain (Pr imary Dx); Morbid obesity (HCC); Abnormal nuclear cardiac imaging test; Encounter for screening for cardiovascular disorders Start: 03-18-2024 End: 03-18-2024 ambulatory DANIEL TAN Facility:[facility] Start: 03-18-2024 End: 03-18-2024 Patient encounter procedure Brigette Mcmanus APRN.CNP Work Phone: [facility] Comment on above: Chronic cough (Prima ry Dx) Start: 03-18-2024 End: 03-18-2024 Telephone encounter [facility] Tan MD Work Phone: [facility] Start: 02-18-2024 End: 02-18-2024 ambulatory Daniel Tan MD Work Phone: [facility] Comment on above: Vaginal Bleeding (Se huey ) Start: 02-17-2024 End: 02-17-2024 ambulatory NONE PHYSICIAN Facility:[facility] Start: 02-17-2024 End: 02-17-2024 Patient encounter procedure LIMA PATEL PA-C [facility] Start: 01-25-2024 End: 01-26-2024 Telephone encounter Idalia Lewis APRN.CNP Work Phone: [facility] [place] Comment on above: Results (Knee Xray ) Start: 01-22-2024 End: 01-22-2024 Telephone encounter Idalia Lewis APRN.CNP Work Phone: [facility] [place] Comment on above: Results (Chest Xray ) Start: 01-21-2024 End: 01-22-2024 Telephone encounter Daniel Tan MD Work Phone: [facility] [place] Comment on above: Patient Question Refill Request Start: 01-21-2024 End: 01-21-2024 Subsequent hospital visit by physician Xr [facility] [place] Work Phone: Radiology Comment on above: Acute pain of right knee [M25.561] Start: 01-21-2024 End: 01-21-2024 Patient encounter procedure Idalia Lewis APRN.MILLER HEAD ASSISTANT WET PROCESS Work Phone: Family [facility] [place] Comment on above: URI, acute (Primary Dx); Moderate persistent asthma with acute exacerbation; Chronic cough; Acute pain of right knee Start: 01-21-2024 End: 01-21-2024 ambulatory DANIEL TAN Facility:[facility] Start: 01-11-2024 End: 01-11-2024 ambulatory Kisha Butterfield MA [facility] Start: 01-11-2024 End: 01-11-2024 Patient encounter procedure Kisha Butterfield MA [facility] Comment on above: Population Health Na vigation Outreach (/UHC, AWV, Care gaps, HCC, [place] PCSA//) Start: 01-11-2024 End: 01-11-2024 Telephone encounter Idalia Lewis APRN.MILLER HEAD ASSISTANT WET PROCESS Work Phone: Family [facility] [place] Comment on above: continued cough Start: 01-07-2024 End: 01-07-2024 Emergency department patient visit Daniel Tan Facility:[facility] Start: 01-06-2024 End: 01-06-2024 Telephone encounter Idalia Lewis APRN.CNP Work Phone: [facility] Comment on above: Results (Lumbar Xray ) Start: 12-31-2023 End: 12-31-2023 Subsequent hospital visit by physician Xr [facility] [place] Work Phone: Radiology Comment on above: Fall, initial encoun ter [W19.XXXA] Start: 12-31-2023 End: 12-31-2023 Patient encounter procedure Idalia Lewis APRN.CNP Work Phone: [facility] Comment on above: Fall, initial encoun ter (Primary Dx); Acute midline low back pain without sciatica; Sinobronchitis Start: 12-31-2023 End: 12-31-2023 ambulatory DANIEL TAN Facility:[facility] Start: 12-30-2023 End: 01-06-2024 Telephone encounter Daniel Tan MD Work Phone: [facility] Comment on above: Patient fall Start: 12-10-2023 End: 12-16-2023 Refill Daniel Tan MD Work Phone: [facility] Comment on above: Refill Request Start: 12-06-2023 End: 12-07-2023 Emergency department patient visit Nacho Olivia Facility:[facility] Start: 11-25-2023 Refill Daniel brandon MD Work Phone: [facility] Comment on above: Refill Request Start: 11-12-2023 Telephone encounter Chaim loco APRN.MILLER HEAD ASSISTANT WET PROCESS Work Phone: [facility] Comment on above: Patient Question Start: 11-12-2023 End: 11-12-2023 ambulatory Sabiha ANGELES Facility:[facility] Start: 11-10-2023 Refill Chaim LEONARD RN.MILLER HEAD ASSISTANT WET PROCESS Work Phone: [facility] Comment on above: Refill Request Start: 11-10-2023 Telephone encounter Chaim loco APRN.MILLER HEAD ASSISTANT WET PROCESS Work Phone: [facility] Comment on above: Results Start: 11-10-2023 End: 11-10-2023 [facility] Comment on above: Acute bronchitis, un specified organism [J20.9] Start: 11-10-2023 End: 11-10-2023 Office outpatient visit 25 minutes Chaim Garcia APRN.MILLER HEAD ASSISTANT WET PROCESS Work Phone: [facility] Comment on above: Acute bronchitis, un specified organism (Primary Dx); Asthma with acute exacerbation, unspecified asthma severity, unspecified whether persistent Start: 11-06-2023 ambulatory Daniel brandon MD Work Phone: [facility] Comment on above: Cough Start: 11-04-2023 Refill Daniel brandon MD Work Phone: [facility] Comment on above: Refill Request Start: 11-03-2023 End: 11-03-2023 ambulatory [facility] Facility:[facility] Start: 10-30-2023 Telephone encounter Sally lara APRN.CNM Work Phone: OB/Gynecology Comment on above: Patient Update Start: 10-20-2023 Telephone encounter Daniel lopez MD Work Phone: [facility] Comment on above: Patient Update Start: 10-18-2023 Nurse Triage Ashanti Kwok RN NURSE REVERSER Comment on above: Refill Request Start: 10-12-2023 Telephone encounter Chaim loco APRN.MILLER HEAD ASSISTANT WET PROCESS Work Phone: [facility] Comment on above: Results Start: 10-09-2023 End: 10-09-2023 Patient encounter procedure Daniel Tan MD Work Phone: [facility] Comment on above: Acute bronchitis, un specified organism (Primary Dx); Asthma with acute exacerbation, unspecified asthma severity, unspecified whether persistent; Tremor of both hands; Need for vaccination; Elevated glucose Start: 10-01-2023 ambulatory Joycemaia Hager Facility: [facility] Start: 09-28-2023 ambulatory Daniel Tan Facilit y:[facility] Start: 09-23-2023 End: 09-23-2023 Subsequent hospital visit by physician Sina Bertrand [facility] Work Phone: Radiology Comment on above: Acute cough [R05.1] Start: 09-23-2023 ambulatory Jana Culver RN NURS E REVERSER Comment on above: FYI-No Action Needed Start: 09-23-2023 End: 09-23-2023 Patient encounter procedure Noy Moss PA-C Work Phone: [facility] Comment on above: Acute URI (Primary D x) Start: 09-22-2023 Telephone encounter Daniel lopez MD Work Phone: [facility] Comment on above: Future Appointment Start: 09-18-2023 ambulatory Jana Culver RN NURS E REVERSER Comment on above: Cough Start: 09-07-2023 Telephone encounter Daniel lopez MD Work Phone: [facility] Comment on above: Patient Update Start: 09-01-2023 End: 09-01-2023 Patient encounter procedure Daniel Tan MD Work Phone: [facility] Comment on above: Skin tag (Primary Dx ); Inflamed skin tag Start: 08-31-2023 End: 08-31-2023 Emergency department patient visit [facility]-Emergency Department Work Phone: Start: 08-31-2023 ambulatory Daniel brandon MD Work Phone: [facility] Comment on above: urinary symptoms; mo le on hip Start: 08-25-2023 Refill Daniel brandon MD Work Phone: [facility] Comment on above: Refill Request Start: 08-11-2023 Telephone encounter Daniel lopez MD Work Phone: [facility] Comment on above: requesting medicatio n Start: 08-11-2023 End: 08-11-2023 Patient encounter procedure Daniel Tan MD Work Phone: [facility] Comment on above: Acute non-recurrent sinusitis, unspecified location (Primary Dx); Acute bronchitis, unspecified organism; Cough, unspecified type; Moderate persistent asthma with acute exacerbation; Non-recurrent acute suppurative otitis media of right ear without spontaneous rupture of tympanic membrane; Delusional disorder (HCC); Seizure disorder ([facility]); Hyperprolactinemia ([facility]) Start: 08-03-2023 Telephone encounter Jessi Montenegro [facility] Start: 07-29-2023 ambulatory Daniel brandon MD Work Phone: [facility] [place] Start: 07-29-2023 Telephone encounter Daniel lopez MD Work Phone: [facility] Comment on above: requesting help for pt Start: 07-28-2023 End: 07-28-2023 Office outpatient visit 15 minutes Justine Pitts MD Work Phone: OB/Gynecology Comment on above: Urinary frequency (P rimary Dx); Urinary incontinence, unspecified type; Pelvic pain in female; Obesity, Class III, BMI 40-49.9 (morbid obesity) ([facility]) Start: 07-27-2023 End: 07-27-2023 Patient encounter procedure Wilmer Murillo MD Work Phone: Cardiology Comment on above: Other chest pain (Pr imary Dx); Abnormal nuclear cardiac imaging test Start: 07-17-2023 Telephone encounter Wilmer Murillo MD Work Phone: Cardiology Comment on above: New Cardiac Patient Start: 07-08-2023 End: 07-08-2023 Emergency department patient visit [facility]-Emergency Department Work Phone: Start: 07-08-2023 End: 07-08-2023 Patient encounter procedure Idalia Lewis APRN.CNP Work Phone: [facility] Comment on above: Post-nasal drip (Criselda inge Dx); Chronic cough Start: 07-07-2023 Refill Daniel brandon MD Work Phone: [facility] Comment on above: Refill Request Start: 06-11-2023 Telephone encounter Daniel lopez MD Work Phone: [facility] Comment on above: patient update/reque sting ATB Start: 06-10-2023 Refill Idalia Lewis APRN.MILLER HEAD ASSISTANT WET PROCESS Work Phone: [facility] Comment on above: Refill Request (Plea se try to send RX today, patient still not feeling better) Start: 06-05-2023 End: 06-05-[address] Daniel Tan Work Phone: [facility] Work Phone: Start: 06-05-2023 End: 06-05-[address] Daniel Tan Work Phone: [facility]-Laboratory Work Phone: Start: 05-27-2023 End: 05-27-2023 Patient encounter procedure Idalia Lewis APRN.MILLER HEAD ASSISTANT WET PROCESS Work Phone: [facility] Comment on above: Non-recurrent acute suppurative otitis media of right ear without spontaneous rupture of tympanic membrane (Primary Dx); Cough, unspecified type; Moderate persistent asthma with acute exacerbation Start: 05-22-2023 Refill Daniel brandon MD Work Phone: [facility] Comment on above: Refill Request Start: 05-14-2023 End: 05-14-2023 Emergency department patient visit Dr. Daniel Tan Work Phone: [facility]-Emergency Department Work Phone: Start: 03-24-2023 Refill Daniel brandon MD Work Phone: [facility] Comment on above: Refill Request Start: 03-02-2023 Telephone encounter Daniel lopez MD Work Phone: [facility] Comment on above: Patient Update (Moth er concerned as pt does not want to do any ADL's, has questions about trying to get guardianship/) Start: 02-27-2023 Non-patient / Non-visit Dr. Corazon Tan Work Phone: [facility] Start: 02-26-2023 End: 02-26-[address] Daniel Tan Work Phone: [facility] Work Phone: Start: 02-26-2023 End: 02-26-[address] Daniel Tan Work Phone: [facility]-Pulmonary Services/Neurology Work Phone: Start: 02-25-2023 End: 02-25-[address] Daniel Tan Work Phone: [facility] Work Phone: Start: 02-25-2023 End: 02-25-[address] [facility] Start: 02-24-2023 End: 02-24-[address] Daniel Tan Work Phone: [facility] Work Phone: Start: 02-24-2023 End: 02-24-[address] Daniel Tan Work Phone: [facility]-Sleep Lab Work Phone: Start: 02-17-2023 End: 02-17-[address] Daniel Tan Work Phone: [facility]-Pulmonary Medicine [facility] Work Phone: Start: 02-06-2023 Telephone encounter Daniel lopez MD Work Phone: [facility] Comment on above: Results Start: 02-02-2023 End: 02-02-2023 Subsequent hospital visit by physician [facility] Work Phone: Radiology Comment on above: Back pain, unspecifi ed back location, unspecified back pain laterality, unspecified chronicity [M54.9] Start: 01-30-2023 End: 01-30-2023 Patient encounter procedure Daniel Tan MD Work Phone: [facility] Comment on above: Back pain, unspecifi ed back location, unspecified back pain laterality, unspecified chronicity (Primary Dx); Curvature of spine; Bilateral hip pain; Sinobronchitis; Cough, unspecified type; Delusional disorders (HCC); Obesity, Class III, BMI 40-49.9 (morbid obesity) (HCC); Hyperprolactinemia (HCC) Start: 01-06-2023 End: 01-06-[address] Daniel Tan Work Phone: [facility] Work Phone: Start: 12-25-2022 Telephone encounter Idalia rahman APRN.MILLER HEAD ASSISTANT WET PROCESS Work Phone: [facility] Comment on above: Results (Labs ) Start: 12-24-2022 Telephone encounter Daniel lopez MD Work Phone: [facility] Comment on above: Mother requesting te sts Start: 12-24-2022 End: 12-24-2022 Patient encounter procedure Idalia Lewis APRN.MILLER HEAD ASSISTANT WET PROCESS Work Phone: [facility] Comment on above: Wellness examination (Primary Dx); Yeast infection of the skin; Chronic cough; Moderate persistent asthma with acute exacerbation; Hemangioma of skin; Seizure disorder (HCC); Mixed incontinence urge and stress (male)(female); Conversion disorder; Screening for diabetes mellitus; Screening cholesterol level Start: 12-24-2022 End: 12-24-2022 Patient encounter status Idalia Lewis APRN.MILLER HEAD ASSISTANT WET PROCESS Work Phone: [facility] Work Phone: Start: 12-15-2022 Telephone encounter Idalia arhman APRN.CNP Work Phone: [facility] [place] Comment on above: Results (Xray Result s ) Start: 12-11-2022 End: 12-11-2022 Subsequent hospital visit by physician Xr [facility] [place] Work Phone: Radiology Comment on above: Acute pain of right knee [M25.561] Start: 12-11-2022 End: 12-11-2022 Patient encounter procedure Idalia Lewis APRN.MILLER HEAD ASSISTANT WET PROCESS Work Phone: [facility] Comment on above: Moderate persistent asthma with acute exacerbation (Primary Dx); Acute cough; Sinus congestion; Rhinorrhea; Acute pain of right knee; Dysuria Start: 10-20-2022 ambulatory Daniel brandon MD Work Phone: [facility] Comment on above: Diarrhea Start: 10-18-2022 Telephone encounter Daniel lopez MD Work Phone: [facility] Comment on above: cough persisting/[place] set congestion Start: 09-22-2022 Telephone encounter Daniel lopez MD Work Phone: [facility] Comment on above: Results Start: 09-18-2022 End: 09-18-2022 [facility] Start: 09-18-2022 End: 09-18-2022 Patient encounter procedure Daniel Tan MD Work Phone: [facility] Comment on above: Elevated glucose (Pr imary Dx); Sinobronchitis; Moderate persistent asthma with acute exacerbation Start: 08-20-2022 ambulatory Daniel brandon MD Work Phone: [facility] [place] Start: 08-08-2022 Telephone encounter Daniel lopez MD Work Phone: [facility] Comment on above: Patient Question Start: 07-31-2022 Telephone encounter Daniel lopez MD Work Phone: [facility] Comment on above: Results Start: 07-29-2022 End: 07-29-2022 Office outpatient visit 25 minutes Chaim Garcia APRN.MILLER HEAD ASSISTANT WET PROCESS Work Phone: [facility] Comment on above: Sinobronchitis (Prim sultana Dx); Rhinorrhea; Moderate persistent asthma with acute exacerbation; Suspected COVID-19 virus infection Start: 07-14-2022 End: 07-14-2022 [facility] Start: 07-14-2022 ambulatory Elena Randall RN NURSE O N CALL Comment on above: Chest Pain Start: 06-16-2022 End: 06-16-2022 Patient encounter procedure Leotenzinsuhas Joseph kita PA Work Phone: [facility] Comment on above: URI, acute (Primary Dx); Acute recurrent sinusitis, unspecified location Start: 06-04-2022 Refill Daniel brandon MD Work Phone: [facility] Comment on above: Refill Request Start: 05-29-2022 Telephone encounter Daniel lopez MD Work Phone: [facility] Comment on above: albuterol PA Start: 05-16-2022 End: 05-16-2022 Patient encounter procedure Idalia Lewis DAIRY INSPECTOR.MILLER HEAD ASSISTANT WET PROCESS Work Phone: [facility] Comment on above: Sinobronchitis (Prim sultana Dx); Acute cough; SOB (shortness of breath) Start: 05-13-2022 End: 05-13-2022 Subsequent hospital visit by physician [facility] ([facility]) Work Phone: Cat Scan Comment on above: Decreased urine stre am [R39.198] Start: 05-12-2022 Telephone encounter Mary gatica DAIRY INSPECTOR.MILLER HEAD ASSISTANT WET PROCESS Work Phone: Urology Comment on above: Patient Update Start: 05-07-2022 End: 05-07-2022 Patient encounter procedure Mary Polanco DAIRY INSPECTOR.MILLER HEAD ASSISTANT WET PROCESS Work Phone: Urology Comment on above: Bilateral flank pain (Primary Dx); Decreased urine stream; Calcium oxalate crystals in urine Start: 04-25-2022 End: 04-25-2022 Emergency department patient [facility]. [facility] Start: 04-25-2022 ambulatory Daniel brandon MD Work Phone: [facility] Comment on above: Vaginal Bleeding Start: 04-11-2022 Telephone encounter Idalia avilaof DAIRY INSPECTOR.MILLER HEAD ASSISTANT WET PROCESS Work Phone: [facility] [place] Comment on above: Results (Covid/Flu ) Start: 04-10-2022 End: 04-10-2022 Subsequent hospital visit by physician Xr [facility] [place] Work Phone: Radiology Comment on above: Acute cough [R05.1] Start: 04-10-2022 ambulatory Daniel brandon MD Work Phone: [facility] [place] Comment on above: Cough Start: 04-10-2022 End: 04-10-2022 Patient encounter procedure Idalia Lewis DAIRY INSPECTOR.MILLER HEAD ASSISTANT WET PROCESS Work Phone: [facility] [place] Comment on above: Viral illness (Prima ry Dx); Acute cough Start: 04-10-2022 Telephone encounter Idalia rahman DAIRY INSPECTOR.MILLER HEAD ASSISTANT WET PROCESS Work Phone: [facility] [place] Comment on above: Results Start: 04-07-2022 ambulatory Daniel brandon MD Work Phone: [facility] [place] Comment on above: Nasal Congestion Start: 03-10-2022 Telephone encounter Idalia rahman DAIRY INSPECTOR.MILLER HEAD ASSISTANT WET PROCESS Work Phone: [facility] [place] Comment on above: Results (US, Labs, U A ) Start: 03-07-2022 End: 03-07-2022 Subsequent hospital visit by physician [facility] Work Phone: Radiology Comment on above: Decreased urine stre am [R39.198] Start: 03-07-2022 Chart abstracting Teri Ferrara MA [facility] Cardiology [place] Start: 03-05-2022 End: 03-05-2022 Patient encounter procedure Idalia Lewis DAIRY INSPECTOR.MILLER HEAD ASSISTANT WET PROCESS Work Phone: [facility] [place] Comment on above: Decreased urine stre am (Primary Dx); Bilateral flank pain; Sinobronchitis; Acute cough Start: 03-04-2022 Telephone encounter Daniel lopez MD Work Phone: [facility] [place] Comment on above: Patient Update (/) Start: 03-03-2022 Non-patient / Non-visit Dr. Corazon Tan Work Phone: [facility] Start: 03-03-2022 End: 03-03-[address] Daniel Tan Work Phone: [facility] Work Phone: Start: 03-03-2022 End: 03-03-[address] Dnaiel Tan Work Phone: [facility] Start: 02-13-2022 Non-patient / Non-visit Dr. Corazon Tan Work Phone: [facility] Start: 02-13-2022 End: 02-13-[address] Daniel Tan Work Phone: [facility] Work Phone: Start: 02-13-2022 End: 02-13-[address] Daniel Tan Work Phone: [facility]-Cardiovascula r Services Start: 02-11-2022 End: 02-11-[address] Daniel Tan Work Phone: [facility] Start: 01-30-2022 End: 01-30-[address] Daniel Tan Work Phone: [facility] Start: 01-06-2022 Telephone encounter Daniel lopez MD Work Phone: [facility] Comment on above: Patient Question Start: 12-10-2021 Refill Daniel brandon MD Work Phone: [facility] [facility] Comment on above: Medication Question Patient Question Start: 12-09-2021 End: 12-09-2021 Patient encounter procedure Daniel Tan MD Work Phone: [facility] Comment on above: Sinobronchitis (Prim sultana Dx); Otalgia of both ears; Obesity, Class III, BMI >= 40; Seizure disorder (HCC); Arthritis of knee; Moderate persistent asthma with acute exacerbation; Nasal congestion; Dysuria Start: 11-15-2021 Refill Idalia Lewis APRN.MILLER HEAD ASSISTANT WET PROCESS Work Phone: [facility] [place] Comment on above: Refill Request; Refi ll Request Start: 08-22-2020 End: 08-22-2020 Subsequent hospital visit by physician Xr [facility] [place] Work Phone: Radiology Comment on above: Cough [R05] Procedures Date Procedure Procedure Detail Performing Clinician Start: 06-08-2024 CT of head without contrast Dr. Daniel Tan MD Work Phone: Start: 06-08-2024 SARS-CoV-2, Influenz a & RSV (PCR) Dr. Daniel Tan MD Work Phone: Start: 04-04-2024 Ecg routine ecg w/le ast 12 lds i&r only [facility] Provider Start: 01-21-2024 Radiologic exam ches t 2 views Idalia Lewis DAIRY INSPECTOR.MILLER HEAD ASSISTANT WET PROCESS Work Phone: Start: 11-10-2023 Radiologic exam ches t 2 views Chaim Garcia DAIRY INSPECTOR.MILLER HEAD ASSISTANT WET PROCESS Work Phone: Start: 10-09-2023 Adult depression scr eening assessment Chaim Garcia DAIRY INSPECTOR.MILLER HEAD ASSISTANT WET PROCESS Work Phone: Start: 09-23-2023 Radiologic exam ches t 2 views Noy Moss PA-C Work Phone: Start: 08-31-2023 Plain chest X-ray Start: 05-14-2023 Plain chest X-ray Dr. Moni Tan Work Phone: Start: 05-14-2023 SARS-CoV-2, Influenz a & RSV (PCR) Dr. Daniel Tan Work Phone: Start: 02-02-2023 Radex entir thrc lmb r crv sac spi w/skull 2/3 vw Daniel Tan MD Work Phone: Start: 12-11-2022 Radiologic examinati on knee 1/2 views Idalia Lewis DAIRY INSPECTOR.MILLER HEAD ASSISTANT WET PROCESS Work Phone: Start: 07-29-2022 COVID WITH FLUA+B, ROUTINE Chaim Jose DAIRY INSPECTOR.MILLER HEAD ASSISTANT WET PROCESS Work Phone: Start: 07-14-2022 CT angiography of ch est with contrast Start: 07-14-2022 Plain chest X-ray Start: 05-13-2022 Ct abdomen & pelvis w/o contrast material Mary Oswaldyner DAIRY INSPECTOR.MILLER HEAD ASSISTANT WET PROCESS Work Phone: Start: 04-25-2022 Plain chest X-ray Dr. Moni Tan Work Phone: Start: 04-10-2022 Radiologic exam ches t 2 views Idalia Lewis APRN.MILLER HEAD ASSISTANT WET PROCESS Work Phone: Start: 04-10-2022 COVID WITH FLUA+B, ROUTINE Idalia Lewis DAIRY INSPECTOR.MILLER HEAD ASSISTANT WET PROCESS Work Phone: Start: 03-07-2022 Us retroperitoneal r eal time w/image complete Idalia Lewis DAIRY INSPECTOR.MILLER HEAD ASSISTANT WET PROCESS Work Phone: Start: 03-03-2022 CT angiography of co ronary arteries Dr. Daniel Tan Work Phone: Start: 02-13-2022 Cardiovascular stres s test using pharmacologic stress agent Dr. Daniel Tan Work Phone: Start: 08-22-2020 Radiologic exam ches t 2 views Stiven Reid MD Work Phone: Start: 06-03-2018 Adult depression scr eening assessment Idalia Lewis DAIRY INSPECTOR.MILLER HEAD ASSISTANT WET PROCESS Work Phone: Cyst (morphologic abnormality) LIMA PATEL PA-C Comment on above: Cyst removed from ba ck SARS-CoV-2 & FLU Ant igen (Rapid) Dr. Daniel Tan Work Phone: SARS-CoV-2 & FLU Ant igen (Rapid) Streptococcus pyogen es antigen assay Plan of Treatment Date Care Activity Detail Author Start: 06-03-2028 Urine microalbumin profile [facility] Start: 11-09-2025 Annual PCP Team Supervisor Last Model Department srinivas Disease Visit Annual PCP Team Chronic Disease Visit [facility] Start: 11-09-2025 End: 11-09-2025 Patient encounter procedure 11/09/2025 1:40 PM EDT Office Visit [facility] [place] [address] [place], [place] [address] Óscar Lopez MD [address] [place] [address] physical [facility] [place] Comment on above: physical Start: 09-05-2025 Annual PCP Team Supervisor Last Model Department srinivas Disease Visit Annual PCP Team Chronic Disease Visit [facility] Start: 08-12-2025 Annual PCP Team Supervisor Last Model Department srinivas Disease Visit Annual PCP Team Chronic Disease Visit [facility] Start: 01-20-2025 Annual PCP Team Supervisor Last Model Department srinivas Disease Visit Annual PCP Team Chronic Disease Visit [facility] Start: 01-09-2025 End: 01-09-2025 Patient encounter procedure 01/09/2025 2:40 PM EDT Office Visit Cardiology [address] [place] [address] Wilmer Murillo MD [address] [facility] [address] [place], [place] [id number] 9 month check Cardiology Comment on above: 9 month check Start: 12-30-2024 Annual PCP Team Supervisor Last Model Department srinivas Disease Visit Annual PCP Team Chronic Disease Visit [facility] Start: 12-19-2024 Influenza vaccination C [facility] Start: 12-08-2024 End: 12-08-2024 Patient encounter procedure 12/08/2024 1:45 PM EDT Appointment Radiology [address] [place] [id number] Menorrhagia with irregular cycle [N92.1] Radiology Comment on above: Menorrhagia with irr egular cycle [N92.1] Start: 11-28-2024 End: 02-26-2025 17-Hydroxyprogesterone [Mass/volume] in Serum or Plasma [facility] Comment on above: Expected: 11/28/2024 , Expires: 02/26/2025 Start: 11-28-2024 End: 02-26-2025 DHEA-S BLD [facility] Comment on above: Expected: 11/28/2024 , Expires: 02/26/2025 Start: 11-28-2024 End: 02-26-2025 Estradiol (E2) [Mass/volume] in Serum or Plasma [facility] Comment on above: Expected: 11/28/2024 , Expires: 02/26/2025 Start: 11-28-2024 End: 02-26-2025 Follitropin [Units/volume] in Serum or Plasma [facility] Comment on above: Expected: 11/28/2024 , Expires: 02/26/2025 Start: 11-28-2024 End: 02-26-2025 Iron and Iron binding capacity panel - Serum or Plasma [facility] [employer] Work Phone: Comment on above: Expected: 11/28/2024 , Expires: 02/26/2025 Start: 11-28-2024 End: 02-26-2025 Lutropin [Units/volume] in Serum or Plasma [facility] Comment on above: Expected: 11/28/2024 , Expires: 02/26/2025 Start: 11-28-2024 End: 02-26-2025 Prolactin [Mass/volume] in Serum or Plasma [facility] Comment on above: Expected: 11/28/2024 , Expires: 02/26/2025 Start: 11-28-2024 End: 02-26-2025 TESTOSTERONE, FREE AND TOTAL, BY EQUILIBRIUM DIALYSIS AND MASS SPECTROMETRY [facility] Comment on above: Expected: 11/28/2024 , Expires: 02/26/2025 Start: 11-28-2024 End: 02-26-2025 Thyrotropin [Units/volume] in Serum or Plasma [facility] Comment on above: Expected: 11/28/2024 , Expires: 02/26/2025 Start: 11-09-2024 Annual PCP Team Supervisor Last Model Department srinivas Disease Visit Annual PCP Team Chronic Disease Visit [facility] Start: 11-09-2024 End: 11-09-2024 Patient encounter procedure 11/09/2024 11:40 AM EDT Office Visit Family Medicine [place] [address] [facility] [place] [address] Jacki Zaragoza APRN.MILLER HEAD ASSISTANT WET PROCESS [address] [place] [address] wellness-med refills on PCP medication only [facility] [place] Comment on above: wellness-med refills on PCP medication only Start: 11-04-2024 End: 11-04-2024 Patient encounter procedure 11/04/2024 10:50 AM EDT Office Visit OB/Gynecology [address] [place] [address] Justine Pitts MD [address] [place] [address] PCOS OB/Gynecology Comment on above: PCOS Start: 10-28-2024 End: 10-28-2024 Patient encounter procedure 10/28/2024 10:00 AM EDT Office Visit Family [facility] [place] [address] [place] [address] Daniel Tan MD [address] [place] [address] wellness-med refills on PCP medication only [facility] [place] Comment on above: wellness-med refills on PCP medication only Start: 10-08-2024 Annual PCP Team Supervisor Last Model Department srinivas Disease Visit Annual PCP Team Chronic Disease Visit [facility] Start: 10-08-2024 Anxiety Screening Anxiety Screening [facility] Start: 10-08-2024 Depression Screening Depression Scre [facility] Start: 10-04-2024 End: 10-04-2024 Patient encounter procedure Family [facility] [place] Comment on above: wellness wellness-med refills on PCP medication only Start: 08-31-2024 Annual PCP Team Supervisor Last Model Department srinivas Disease Visit Annual PCP Team Chronic Disease Visit [facility] Start: 08-10-2024 Annual PCP Team Supervisor Last Model Department srinivas Disease Visit Annual PCP Team Chronic Disease Visit [facility] Start: 07-07-2024 Annual PCP Team Supervisor Last Model Department srinivas Disease Visit Annual PCP Team Chronic Disease Visit [facility] Start: [facility]09[facility]2024 [facility] Start: 05-27-2024 Annual PCP Team Supervisor Last Model Department srinivas Disease Visit Annual PCP Team Chronic Disease Visit [facility] Start: 05-01-2024 Annual PCP Team Supervisor Last Model Department srinivas Disease Visit Annual PCP Team Chronic Disease Visit [facility] Start: 04-20-2024 Medicare Advantage A nnual Wellness Visit Medicare Advantage Annual Wellness Visit [facility] Start: 04-04-2024 End: 04-04-2024 Patient encounter procedure 04/04/2024 2:40 PM EST Office Visit Cardiology [address] [place] [id number] Wilmer Murillo MD [address] [place] [address] 6 mo follow up Cardiology Comment on above: 6 mo follow up Start: 04-04-2024 End: 07-04-2024 Basic metabolic 2000 panel - Serum or Plasma BASIC METABOLIC PANEL Lab Routine Other chest pain Abnormal nuclear cardiac imaging test Encounter for screening for cardiovascular disorders Expected: 04/04/2024, Expires: 07/04/2024 [facility] Comment on above: Expected: 04/04/2024 , Expires: 07/04/2024 Start: 03-28-2024 End: 03-28-2024 Patient encounter procedure 03/28/2024 2:40 PM EST Office Visit [facility] [place] [address] [place] [address] Daniel Tan MD [address] [place] [address] Medicare wellness [facility] [place] Comment on above: Medicare wellness Start: 03-21-2024 End: 03-21-2024 Patient encounter procedure 03/21/2024 3:15 PM EST Office Visit Pulmonary Medicine [address] [place] [address] Olimpia Cline MD [address] [place] [address] Moderate persistent asthma with acute exacerbation [J45.41] Pulmonary Medicine Comment on above: Moderate persistent asthma with acute exacerbation [J45.41] Start: 03-21-2024 End: 03-21-2024 ambulatory PULM LAB [facility] Comment on above: Moderate persistent asthma with acute exacerbation [J45.41] Start: 02-10-2024 End: 02-10-2024 Patient encounter procedure 02/10/2024 11:30 AM EDT Appointment Mammogram [address] [place] [address] screening mammogram w/ RAPHAEL z12.31 Mammogram Comment on above: screening mammogram w/ RAPHAEL z12.31 Start: 01-31-2024 Annual PCP Team Supervisor Last Model Department srinivas Disease Visit Annual PCP Team Chronic Disease Visit [facility] Start: 01-21-2024 End: 01-21-2024 Patient encounter procedure 01/21/2024 1:00 PM EDT Office Visit [facility] [place] [address] [facility] [place] [address] Idalia Lewis APRN.MILLER HEAD ASSISTANT WET PROCESS [address] [facility] [place] [address] Bronchitis [facility] [place] Comment on above: Bronchitis Start: 12-25-2023 ANNUAL PCP TEAM WOOD TYPE FINISHER SRINIVAS DISEASE VISIT ANNUAL PCP TEAM CHRONIC DISEASE VISIT [facility] Start: 12-25-2023 COVID-19 VACCINE (#1) COVID-19 VACCI NE (#1) [facility] Comment on above: Postponed from 01/17 (Declined at this time) Start: 12-25-2023 Covid-19 Vaccine ( season) Covid-19 Vaccine ( season) [facility] Comment on above: Postponed from 12/19 (Declined at this time) Start: 12-25-2023 HEPATITIS B (1 of 3 - 3-dose series) HEPATITIS B (1 of 3 - 3-dose series) [facility] Comment on above: Postponed from 07/18 (Declined at this time) Start: 12-25-2023 Hepatitis B Vaccine (1 of 3 - 19+ 3-dose series) Hepatitis B Vaccine (1 of 3 - 19+ 3-dose series) [facility] Comment on above: Postponed from 07/18 (Declined at this time) Start: 12-25-2023 Hepatitis B Vaccine (1 of 3 - 3-dose series) Hepatitis B Vaccine (1 of 3 - 3-dose series) [facility] Comment on above: Postponed from 07/18 (Declined at this time) Start: 12-25-2023 HEPATITIS C SCREENING HEPATITIS C [facility] Comment on above: Postponed from 07/18 (Declined at this time) Start: 12-25-2023 Hepatitis C screening Hepatitis C [facility] Comment on above: Postponed from 07/18 (Declined at this time) Start: 12-20-2023 Covid-19 Vaccine ( season) Covid-19 Vaccine ( season) [facility] Start: 12-20-2023 Covid-19 Vaccine () Covid-19 Vaccine () [facility] Start: 12-20-2023 Influenza vaccination [facility] Start: 12-12-2023 ANNUAL PCP TEAM WOOD TYPE FINISHER SRINIVAS DISEASE VISIT ANNUAL PCP TEAM CHRONIC DISEASE VISIT [facility] Start: 11-10-2023 End: 11-10-2023 Patient encounter procedure 11/10/2023 11:40 AM EDT Office Visit [facility] [place] [address] [place] [address] Chaim Garcia APRN.MILLER HEAD ASSISTANT WET PROCESS [address] [facility] [place] [address] cough, congestion, fever [facility] [place] Comment on above: cough, congestion, f ever Start: 11-02-2023 End: 11-02-2023 Patient encounter procedure 11/02/2023 3:20 PM EDT Office Visit OB/Gynecology [address] [place] [address] Justine Pitts MD [address] [place] [address] heavy bleeding with clots since 10/27 OB/Gynecology Comment on above: heavy bleeding with clots since 10/27 Start: 10-18-2023 Influenza vaccination [facility] Comment on above: Postponed from 09/01 /2023 (Declined at this time) Start: 10-15-2023 End: 10-15-2023 ambulatory 10/15/2023 11:00 AM EDT Procedure PULM LAB [facility] [address] [place] [address] W[facility], Pulm Lab [facility] [address] [place] [address] J45.901 - Asthma with acute exacerbation, unspecified asthma severity. unspecified wheter persistent PULM LAB [facility] Comment on above: J45.901 - Asthma wit h acute exacerbation, unspecified asthma severity. unspecified wheter persistent Start: 10-09-2023 End: 01-08-2024 Basic metabolic 2000 panel - Serum or Plasma [facility] Comment on above: Expected: 10/09/2023 , Expires: 01/08/2024 Start: 10-09-2023 End: 01-08-2024 Hemoglobin A1c in Blood [facility] Comment on above: Expected: 10/09/2023 , Expires: 01/08/2024 Start: 09-23-2023 End: 09-23-2023 Patient encounter procedure 09/23/2023 1:20 PM EDT Office Visit [facility] [place] [address] [place] [address] Idalia Lewis, LAZARO.MILLER HEAD ASSISTANT WET PROCESS [address] [place] [address] cough,sinus symptoms x 1 or longer (see phone encounter) [facility] [place] Comment on above: cough,sinus symptoms x 1 or longer (see phone encounter) Start: 09-19-2023 ANNUAL PCP TEAM WOOD TYPE FINISHER SRINIVAS DISEASE VISIT ANNUAL PCP TEAM CHRONIC DISEASE VISIT [facility] Start: 09-08-2023 End: 09-08-2023 Patient encounter procedure 09/08/2023 11:30 AM EDT Office Visit Urology [address] [place] [address] [place] PA-C [address] [place] [address] Urinary frequency [R35.0] Urology Comment on above: Urinary frequency [R 35.0] Start: 09-07-2023 End: 09-07-2023 Patient encounter procedure Radiology Comment on above: Other chest pain [R0 7.89] NURSES AWARE Other c hest pain [R07.89] Start: 09-01-2023 End: 09-01-2023 Patient encounter procedure 09/01/2023 2:40 PM EDT Office Visit [facility] [place] [address] [place] [address] Daniel Tan MD [address] [place] [address] right hip mole opened, size of dime, purple and painful [facility] Comment on above: right hip mole opene d, size of dime, purple and painful Start: 08-31-2023 [facility] Start: 07-30-2023 ANNUAL PCP TEAM WOOD TYPE FINISHER SRINIVAS DISEASE VISIT ANNUAL PCP TEAM CHRONIC DISEASE VISIT [facility] Start: 07-08-2023 [facility] Start: 06-05-2023 Procedure [facility] Start: 06-03-2023 HPV TESTING HPV TESTING [facility] Start: 06-03-2023 PAP TESTING PAP TESTING [facility] Start: 06-03-2023 Screening for malign ant neoplasm of cervix [facility] Start: 05-16-2023 ANNUAL PCP TEAM WOOD TYPE FINISHER SRINIVAS DISEASE VISIT ANNUAL PCP TEAM CHRONIC DISEASE VISIT [facility] Start: 05-14-2023 [facility] Start: 05-14-2023 [facility] Start: 04-20-2023 Behavioral Health Screening Behavioral Health Screening [facility] Start: 04-20-2023 Depression Assessment Depression Ass essment [facility] Start: 04-10-2023 ANNUAL PCP TEAM WOOD TYPE FINISHER SRINIVAS DISEASE VISIT ANNUAL PCP TEAM CHRONIC DISEASE VISIT [facility] Start: 03-05-2023 ANNUAL PCP TEAM WOOD TYPE FINISHER SRINIVAS DISEASE VISIT ANNUAL PCP TEAM CHRONIC DISEASE VISIT [facility] Start: 01-06-2023 Patient referral [facility] Work Phone: Start: 12-24-2022 End: 02-23-2023 Comprehensive metabolic 2000 panel - Serum or Plasma [facility] Work Phone: Comment on above: Expected: 12/24/2022 , Expires: 02/23/2023 Start: 12-24-2022 End: 02-23-2023 Lipid 1996 panel - Serum or Plasma [facility] Work Phone: Comment on above: Expected: 12/24/2022 , Expires: 02/23/2023 Start: 12-24-2022 End: 01-23-2024 LUNG VOLUMES LUNG VOLUMES PFT Routine Moderate persistent asthma with acute exacerbation Expected: 12/24/2022, Expires: 01/23/2024 [facility] Work Phone: Comment on above: Expected: 12/24/2022 , Expires: 01/23/2024 Start: 12-24-2022 End: 01-23-2024 NITRIC OXIDE, EXHALED NITRIC OXIDE, EXHALED PFT Routine Moderate persistent asthma with acute exacerbation Expected: 12/24/2022, Expires: 01/23/2024 [facility] Work Phone: Comment on above: Expected: 12/24/2022 , Expires: 01/23/2024 Start: 12-19-2022 Influenza vaccination [facility] Start: 12-11-2022 End: 02-10-2023 Bacteria identified in Urine by Culture URINE CULTURE Microbiology Routine Dysuria Expected: 12/11/2022, Expires: 02/10/2023 [facility] Work Phone: Comment on above: Expected: 12/11/2022 , Expires: 02/10/2023 Start: 12-11-2022 End: 02-10-2023 Urinalysis complete panel - Urine URINALYSIS, WITH MICROSCOPIC Lab Routine Dysuria Expected: 12/11/2022, Expires: 02/10/2023 [facility] Work Phone: Comment on above: Expected: 12/11/2022 , Expires: 02/10/2023 Start: 12-09-2022 ANNUAL PCP TEAM WOOD TYPE FINISHER SRINIVAS DISEASE VISIT ANNUAL PCP TEAM CHRONIC DISEASE VISIT [facility] Start: 09-18-2022 End: 08-01-2023 Hemoglobin A1c in Blood [facility] Work Phone: Comment on above: Expected: 09/18/2022 , Expires: 11/18/2022 Start: 2022 Mammography [facility] Start: 2022 Screening for malign ant neoplasm of breast Mammogram Screening [facility] Start: 07-14-2022 [facility] Start: 04-20-2022 DEPRESSION ASSESSMENT DEPRESSION ASS ESSMENT [facility] Start: 03-05-2022 End: 05-05-2022 Bacteria identified in Urine by Culture [facility] Work Phone: Comment on above: Expected: 03/05/2022 , Expires: 05/05/2022 Start: 03-05-2022 End: 05-05-2022 CBC W Auto Differential panel - Blood [facility] Work Phone: Comment on above: Expected: 03/05/2022 , Expires: 05/05/2022 Start: 03-05-2022 End: 05-05-2022 Comprehensive metabolic 2000 panel - Serum or Plasma [facility] Work Phone: Comment on above: Expected: 03/05/2022 , Expires: 05/05/2022 Start: 03-05-2022 End: 05-05-2022 Urinalysis complete panel - Urine [facility] Work Phone: Comment on above: Expected: 03/05/2022 , Expires: 05/05/2022 Start: 03-03-2022 Following clinical p athway protocol [facility] Work Phone: Start: 12-19-2021 Influenza vaccination INFLUENZA (#1) [facility] Start: 12-09-2021 End: 02-08-2022 CBC W Auto Differential panel - Blood [facility] Work Phone: Comment on above: Expected: 12/09/2021 , Expires: 02/08/2022 Start: 12-09-2021 End: 02-08-2022 Comprehensive metabolic 2000 panel - Serum or Plasma [facility] Work Phone: Comment on above: Expected: 12/09/2021 (Approximate), Expires: 02/08/2022 Start: 12-09-2021 End: 02-08-2022 Hemoglobin A1c in Blood [facility] Work Phone: Comment on above: Expected: 12/09/2021 (Approximate), Expires: 02/08/2022 Start: 12-09-2021 End: 02-08-2022 LIPID PANEL, NONFASTING [facility] Work Phone: Comment on above: Expected: 12/09/2021 , Expires: 02/08/2022 Start: 12-09-2021 End: 02-08-2022 Urinalysis complete panel - Urine [facility] Work Phone: Comment on above: Expected: 12/09/2021 , Expires: 02/08/2022 Start: 09-10-2021 ANNUAL PCP TEAM WOOD TYPE FINISHER SRINIVAS DISEASE VISIT ANNUAL PCP TEAM CHRONIC DISEASE VISIT [facility] Start: 04-20-2021 DEPRESSION ASSESSMENT DEPRESSION ASS ESSMENT [facility] Start: 06-03-[address] [facility] assessment DEPRESSION SCREENING [facility] Start: 2009 HPV Vaccine (1 - 3-d ose SCDM series) HPV Vaccine (1 - 3-dose SCDM series) [facility] Start: 2001 Hepatitis B Vaccine (1 of 3 - 19+ 3-dose series) Hepatitis B Vaccine (1 of 3 - 19+ 3-dose series) [facility] Start: 2000 HEPATITIS C SCREENING HEPATITIS C [facility] Start: 2000 Hepatitis C screening Hepatitis C [facility] Start: 2000 SPIROMETRY SPIROMETRY [facility] Start: 1988 PNEUMOCOCCAL (1 - PCV) PNEUMOCOCCAL (1 - PCV) [facility] Start: 1988 Pneumococcal vaccination [facility] Start: 01-17-1983 COVID-19 VACCINE (#1) COVID-19 VACCI NE (#1) [facility] Start: 1982 HEPATITIS B (1 of 3 - 3-dose series) HEPATITIS B (1 of 3 - 3-dose series) [facility] BLADDER SCAN BLADDER SCAN Pro cedures Routine Decreased urine stream Ordered: 05/07/2022 [facility] Work Phone: Comment on above: Ordered: 05/07/2022 End: 06-06-2023 Ct abdomen & pelvis w/o contrast material CT FLANK WO IVCON Radiology Routine Decreased urine stream Calcium oxalate crystals in urine Bilateral flank pain 1 Occurrences starting 05/07/2022 until 06/06/2023 [facility] Work Phone: Comment on above: 1 Occurrences starti ng 05/07/2022 until 06/06/2023 End: 08-25-2024 CTA Heart and Coronary arteries W contrast IV CTA CORONARY W IVCON Radiology Routine Other chest pain Abnormal nuclear cardiac imaging test 1 Occurrences starting 07/27/2023 until 08/25/2024 [facility] Work Phone: Comment on above: 1 Occurrences starti ng 07/27/2023 until 08/25/2024 End: 05-04-2025 CTA Heart and Coronary arteries W contrast IV CTA CORONARY W IVCON Radiology Routine Encounter for screening for cardiovascular disorders 1 Occurrences starting 04/04/2024 until 05/04/2025 [facility] Work Phone: Comment on above: 1 Occurrences starti ng 04/04/2024 until 05/04/2025 Cystourethroscopy CYSTO.PANENDO Procedures Routine Decreased urine stream Calcium oxalate crystals in urine 1 Occurrences starting 05/07/2022 [facility] Work Phone: Comment on above: 1 Occurrences starti ng 05/07/2022 End: 07-28-2025 DBT Breast - bilateral screening AUGIE SCREENING W RAPHAEL Radiology Routine Encounter for screening mammogram for breast cancer 1 Occurrences starting 06/28/2024 until 07/28/2025 [facility] Work Phone: Comment on above: 1 Occurrences starti ng 06/28/2024 until 07/28/2025 ECG COMPLETE ECG COMPLETE ECG 04/04/2024 2:44 PM EST [facility] End: 09-19-2023 AUGIE SCREENING AUGIE SCREENING Radiology Routine Encounter for screening mammogram for breast cancer 1 Occurrences starting 08/20/2022 until 09/19/2023 [facility] Work Phone: Comment on above: 1 Occurrences starti ng 08/20/2022 until 09/19/2023 End: 08-27-2024 MG Breast Screening AUGIE SCREENING Radiology Routine Encounter for screening mammogram for breast cancer 1 Occurrences starting 07/29/2023 until 08/27/2024 [facility] Work Phone: Comment on above: 1 Occurrences starti ng 07/29/2023 until 08/27/2024 Patient Education [facility] Work Phone: Patient referral [facility] Work Phone: End: 02-29-2024 Radex entir thrc lmbr crv sac spi w/skull 2/3 vw XR SCOLIOSIS PA STAND/LAT 2V Radiology Routine Back pain, unspecified back location, unspecified back pain laterality, unspecified chronicity Curvature of spine 1 Occurrences starting 01/30/2023 until 02/29/2024 [facility] Work Phone: Comment on above: 1 Occurrences starti ng 01/30/2023 until 02/29/2024 End: 01-23-2024 SPIROMETRY - BASELINE AND POST DILATOR SPIROMETRY - BASELINE AND POST DILATOR PFT Routine Moderate persistent asthma with acute exacerbation 1 Occurrences starting 12/24/2022 until 01/23/2024 [facility] Work Phone: Comment on above: 1 Occurrences starti ng 12/24/2022 until 01/23/2024 End: 11-07-2024 SPIROMETRY - BASELINE AND POST DILATOR SPIROMETRY - BASELINE AND POST DILATOR PFT Routine Asthma with acute exacerbation, unspecified asthma severity, unspecified whether persistent 1 Occurrences starting 10/09/2023 until 11/07/2024 [facility] Work Phone: Comment on above: 1 Occurrences starti ng 10/09/2023 until 11/07/2024 Streptococcus pyogen es antigen assay Group A Streptococcus Rapid Screen [facility] Work Phone: End: 04-04-2023 US KIDNEY/BLADDER US KIDNEY/BLADDER Radiology STAT Decreased urine stream Bilateral flank pain 1 Occurrences starting 03/05/2022 until 04/04/2023 [facility] Work Phone: Comment on above: 1 Occurrences starti ng 03/05/2022 until 04/04/2023 End: 12-28-2025 US Pelvis transvaginal US FEMALE PELVIS TRANSVAG Radiology Routine Menorrhagia with irregular cycle 1 Occurrences starting 11/28/2024 until 12/28/2025 [facility] Comment on above: 1 Occurrences starti ng 11/28/2024 until 12/28/2025 End: 07-10-2024 XR Chest PA and Lateral XR CHEST 2V FRONTAL/LAT Radiology STAT Acute cough 1 Occurrences starting 06/11/2023 until 07/10/2024 [facility] Work Phone: Comment on above: 1 Occurrences starti ng 06/11/2023 until 07/10/2024 End: 12-09-2025 XR Chest PA and Lateral XR CHEST 2V FRONTAL/LAT Radiology STAT Acute cough 1 Occurrences starting 11/09/2024 until 12/09/2025 [facility] Work Phone: Comment on above: 1 Occurrences starti ng 11/09/2024 until 12/09/2025 End: 02-19-2025 XR Knee - right AP and Lateral XR KNEE LIMITED 2V AP/LAT RIGHT Radiology Routine Acute pain of right knee 1 Occurrences starting 01/21/2024 until 02/19/2025 [facility] Work Phone: Comment on above: 1 Occurrences starti ng 01/21/2024 until 02/19/2025 XR Knee - right AP a nd Lateral XR KNEE LIMITED 2V AP/LAT RIGHT Radiology Routine Acute pain of right knee 01/21/2024 3:00 PM EDT [facility] End: 01-10-2024 XR KNEE LIMITED 2V AP/LAT RIGHT XR KNEE LIMITED 2V AP/LAT RIGHT Radiology Routine Acute pain of right knee 1 Occurrences starting 12/11/2022 until 01/10/2024 [facility] Work Phone: Comment on above: 1 Occurrences starti ng 12/11/2022 until 01/10/2024 XR KNEE LIMITED 2V A P/LAT RIGHT XR KNEE LIMITED 2V AP/LAT RIGHT Radiology Routine Acute pain of right knee 12/11/2022 3:24 PM EDT [facility] Work Phone: End: 01-29-2025 XR Lumbar spine 3 Views XR LUMBAR GENERAL 3V AP/LAT/L5-S1 Radiology Routine Fall, initial encounter Acute midline low back pain without sciatica 1 Occurrences starting 12/31/2023 until 01/29/2025 [facility] Work Phone: Comment on above: 1 Occurrences starti ng 12/31/2023 until 01/29/2025 XR Lumbar spine 3 Views XR LUMBA R GENERAL 3V AP/LAT/L5-S1 Radiology Routine Fall, initial encounter Acute midline low back pain without sciatica 12/31/2023 11:04 AM EDT [facility] Immunizations Immunization Date Immunization Notes Care Provider [facility] 10-09-2023 pneumococcal conjuga te (PCV20) vaccine, 20 valent (PREVNAR 20) Daniel Tan MD Work Phone: [facility] 10-09-2023 pneumococcal Conjugate, unspecified formulation Daniel Tan MD Work Phone: [facility] 01-03-2019 influenza, injectabl e, quadrivalent, contains preservative Idalia Tannhof DAIRY INSPECTOR.MILLER HEAD ASSISTANT WET PROCESS Work Phone: [facility] 01-03-2019 influenza virus vaccine, unspecified formulation Daniel Tan MD Work Phone: [facility] 06-03-2018 tetanus toxoid, reduced diphtheria toxoid, and acellular pertussis vaccine, adsorbed Idalia Tannhof DAIRY INSPECTOR.MILLER HEAD ASSISTANT WET PROCESS Work Phone: [facility] 03-08-2016 influenza, injectabl e, quadrivalent, preservative free LIMA PATEL PA-C [facility] 01-22-2016 influenza, injectabl e, quadrivalent, contains preservative Idalia Tannhof DAIRY INSPECTOR.MILLER HEAD ASSISTANT WET PROCESS Work Phone: [facility] 03-22-2015 influenza, injectabl e, quadrivalent, contains preservative Idalia Tannhof DAIRY INSPECTOR.MILLER HEAD ASSISTANT WET PROCESS Work Phone: [facility] 03-22-2015 influenza, seasonal, injectable Idalia Tannhof DAIRY INSPECTOR.MILLER HEAD ASSISTANT WET PROCESS Work Phone: [facility] Work Phone: 02-21-2014 influenza, seasonal, injectable Idalia Tannhof DAIRY INSPECTOR.MILLER HEAD ASSISTANT WET PROCESS Work Phone: [facility] 05-11-2013 influenza virus vaccine, unspecified formulation Idalia Tannhof DAIRY INSPECTOR.MILLER HEAD ASSISTANT WET PROCESS Work Phone: [facility] Payers Date Payer Category Payer Medicare [id number] 2024 Private Health Insurance [id number] 2023 Self-pay [id number] 2023 Medicaid [id number] 2018 Medicaid [id number] 2018 Medicare [id number] 2018 Medicare [id number] 2018 Medicare (Managed Care) [facility] MEDICARE [id number] 2018 Unknown [id number] 2016 Unknown [id number] 1982 Unknown [id number] 1982 Unknown [id number] Unknown [id number] 462 Unknown [id number] 462 Unknown [id number] 462 Unknown [id number] 462 Unknown [id number] 462 Unknown [id number] 462 Unknown [id number] 462 Unknown [id number] 462 Unknown [id number] 462 Social History Date Type Detail Facility Start: 12-09-2021 End: 06-08-2024 Tobacco smoking status MDIS Never smoked tobacco [facility] Work Phone: Start: 03-18-2021 End: 09-05-2024 Alcohol intake Current non-drinker of alcohol (finding) [facility] Start: 1980 Sex Assigned At Not on file C [facility] Start: 07-23-2011 End: 12-09-2021 Tobacco use and exposure Smokeless tobacco non-user [facility] Start: 07-23-2020 End: 03-05-2022 Exposure to SARS-CoV-2 (event) Not sure [facility] Start: 02-11-2022 End: 08-31-2023 Tobacco smoking status NHIS Unknown if ever smoked [facility] Start: 09-04-2021 None [facility] Start: 09-04-2021 Spouse/ Signif icant Other [facility] Start: 09-04-2021 Non-smoker [facility] Start: 1980 Sex Assigned At Female [facility] Start: 09-18-2022 End: 12-11-2022 History of Social function [facility] Start: 09-18-2022 End: 12-11-2022 Tobacco use panel [facility] Start: 03-21-2012 Adult Depression Screening Assessment 0 [facility] Sex Assigned At [facility] Start: 03-31-2011 End: 07-29-2024 Sex Female (finding) [facility] NEGATED: Highlighted row [facility] Functional Status Date Assessment Result Facility 06-10-2024 Functional Status Single level home [facility] 06-10-2024 Functional Status [facility] 06-10-2024 Functional Status [facility] 06-10-2024 Functional Status [facility] 06-10-2024 Functional Status Activity Racheal tance One assist [facility] 06-09-2024 Functional Status Done [facility] 06-09-2024 Functional Status 7pm-11pm [facility] 06-09-2024 Functional Status [facility] 06-09-2024 Functional Status [facility] 06-09-2024 Functional Status [facility] 06-09-2024 Functional Status Minimum assistance [facility] 11-06-2014 Are you deaf, or do you have serious difficulty hearing No 11/06/2014 11:15 AM Kitty Purdy MA No [facility] 11-06-2014 Are you blind, or do you have serious difficulty seeing, even when wearing glasses No 11/06/2014 11:15 AM Kitty Purdy MA No [facility] 11-06-2014 Do you have serious difficulty walking or climbing stairs No 11/06/2014 11:15 AM Kitty Purdy MA No [facility] 11-06-2014 Do you have difficul ty dressing or bathing No 11/06/2014 11:15 AM Kitty Purdy MA No [facility] 11-06-2014 Because of a physica l, mental, or emotional condition, do you have difficulty doing errands alone such as visiting a physician's office or shopping No 11/06/2014 11:15 AM Kitty Purdy MA No [facility] Mental Status Date Assessment Result Facility 06-10-2024 Mental Status Oriented x 4, Follows simple commands [facility] 06-10-2024 Mental Status [facility] 06-10-2024 Mental Status [facility] 06-08-2024 Cognitive function Postictal [facility] Work Phone: 07-08-2023 Cognitive function Level Of Cons ciousness Awake;Alert;Appropriate;Fol lows Commands [facility] Work Phone: 05-14-2023 Cognitive function Voice/Name [facility] Work Phone: 09-18-2022 Cognitive function Voice/Name [facility] Work Phone: 07-14-2022 Cognitive function Level Of Cons ciousness Awake;Alert;Appropriate;Fol lows Commands [facility] Work Phone: 03-03-2022 Cognitive function Voice/Name [facility] Work Phone: 11-06-2014 Because of a physica l, mental, or emotional condition, do you have serious difficulty concentrating, remembering, or making decisions No 11/06/2014 11:15 AM Kitty Purdy MA No [facility] Clinical Notes 10-03-2011 to 11-28-2024 Ashanti Shankar APRN.[facility] - 11/28/2024 2:29 PM Jacki BurlesonLAZARO.MILLER HEAD ASSISTANT WET PROCESS - 11/09/2024 11:51 AM EDTTelephone Encounter - PodlogmarceloJackiLAZARO.[facility] - 11/07/2024 8:02 AM EDT Note Date & Type Note Facility 11-28-2024 History of Presen t illness Narrative Images from the original note were not included. Obstetrics and Gynecology [place] DIVISION SUPERVISOR Visit Subjective Recording using [email or web address] software for draft documentation of the visit was discussed with the patient/authorized self pay representative; all questions welcomed and answered. Patient/authorized self pay representative agreed to proceed CHIEF COMPLAINT: The patient is a 44-year-old female for evaluation of irregular and heavy menstrual bleeding. HPI: Menstrual Irregularities - LMP: May - Reports irregular and heavy menstrual bleeding since May, with episodes of bright red bleeding occurring intermittently through October. - Describes bleeding as heavy, often soaking through pads and requiring changes every hour or two on the heaviest days. - Longest period without bleeding has been a few days; bleeding has been on and off weekly. - Last episode of bleeding was a couple of weeks ago. - Denies significant cramping associated with the bleeding. - Reports feeling lightheaded and experiencing shortness of breath, particularly when going to the bathroom. - Urine occasionally dark in color, denies burning with urination. - Had a long period of amenorrhea before the onset of current bleeding episodes. HISTORY: OB History Gravida2 Para0 Term0 Preterm0 AB2 Living0 SAB2 IAB0 Ectopic0 Multiple0 Live Births0 Sack Keeper History LMP: 06/17/2023 (Approximate), None Age at Menarche: Age at First : Age at Menopause: Sack Keeper History Comments: Sexual Activity: Not Currently; Male Contraception: No contraception data on record PAST MEDICAL HISTORY[1] PAST SURGICAL HISTORY Procedure Laterality Date CHEST X-RAY 06/16/2020 CHEST X-RAY 06/16/2020 ECHO 02/13/2022 EF60% EKG 09/30/2019 PAST SURGICAL HISTORY OF cyst removal from lower back STRESS TEST 03/10/2019 STRESS TEST 02/13/2022 FAMILY HISTORY[2] SOCIAL HISTORY[3] CURRENT MEDICATIONS[4] ALLERGIES[5] REVIEW OF SYSTEMS: Respiratory: (+) shortness of breath Genitourinary: (+) heavy irregular vaginal bleeding, (+) dark urine, (+) urinary urgency, (-) abdominal cramping Neurological: (+) dizziness Objective SENSITIVE EXAM: Sensitive exam not performed. PHYSICAL EXAM: BP 122/88 Wt 0 lb (0.0kg) LMP 06/17/2023 GENERAL: Pleasant; in no apparent distress PULMONARY: normal inspiratory effort NEURO: alert and oriented x3 EXTREMITIES: normal Assessment & Plan ASSESSMENT AND PLAN: 1. Menorrhagia with irregular cycle (N92.1) - Chronic irregular, heavy vaginal bleeding since May, consistent with PCOS. - Ordered labs to assess hormone levels and CBC to evaluate for anemia. - Ordered pelvic ultrasound to evaluate uterine lining and rule out polyps or other structural causes. - Start medication to control bleedin pills once daily. - Explained that PCOS can cause irregular bleeding and that hormone therapy is typically used to manage symptoms. - Advised to start medication as soon as it is delivered. - Will follow up after receiving lab and ultrasound results to determine next steps. 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 No date: Closed fracture of unspecified bone Comment: right arm No date: Closed fracture of unspecified bone Comment: left ankle No date: Esophageal reflux No date: Myalgia and myositis, unspecified No date: Other forms of dyspnea 09/26/2011: Seizure disorder (HCC) No date: SOB (shortness of breath) No date: Unspecified asthma, with status asthmaticus [2] Review of patient's family history indicates: Problem: Asthma Relation: Mother Age of Onset: (Not Specified) Problem: other (Reflux) Relation: Mother Age of Onset: (Not Specified) Problem: other (angina) Relation: Mother Age of Onset: (Not Specified) Problem: Heart Relation: Father Age of Onset: (Not Specified) Problem: Seizures Relation: Father Age of Onset: (Not Specified) Problem: Seizures Relation: Brother Age of Onset: (Not Specified) Problem: Heart Relation: Sister Age of Onset: (Not Specified) Comment: [place] Problem: Heart Relation: Sister Age of Onset: (Not Specified) Problem: Seizures Relation: Sister Age of Onset: (Not Specified) Comment: Young Problem: Diabetes Relation: Maternal Grandmother Age of Onset: (Not Specified) Problem: Stroke Relation: Maternal Grandmother Age of Onset: (Not Specified) Problem: other (hypoglycemia) Relation: Maternal Grandfather Age of Onset: (Not Specified) [3] Social History Tobacco Use Smoking status: Never Smokeless tobacco: Never Substance Use Topics Alcohol use: No Drug use: No [4] Current Outpatient Medications Medication Sig OLANZapine orally disintegrating (ZYPREXA ZYDIS) 10 mg disintegrating tablet Take 1 tablet by mouth daily at bedtime. traZODone (DESYREL) 100 mg tablet Take 1 tablet by mouth daily at bedtime. cyanocobalamin (VITAMIN B-12) 1,000 mcg tab Take 1 tablet by mouth once daily. zonisamide (ZONEGRAN) 100 mg capsule 2 capsules by mouth twice daily montelukast (SINGULAIR) 10 mg tablet Take 1 tablet by mouth daily at bedtime. omeprazole (PRILOSEC) 40 mg capsule Take 1 capsule by mouth once daily. cetirizine (ZYRTEC) 10 mg tablet Take 1 tablet by mouth once daily. levETIRAcetam (KEPPRA) 750 mg tablet Take 1 tablet by mouth two times a day. albuterol HFA (VENTOLIN HFA) 90 mcg/actuation inhaler Inhale 2 puffs as instructed every 4 hours as needed for wheezing/shortness of breath. fluticasone-salmeterol (ADVAIR DISKUS) 250-50 mcg/dose inhaler Inhale 1 puff as instructed two times a day. Rinse and gargle mouth after use with water. metoprolol succinate ER (TOPROL XL) 25 mg 24 hr tablet Take 1 tablet by mouth once daily. TYLENOL ARTHRITIS PAIN 650 mg CR tablet Take 1 tablet by mouth every 8 hours as needed. citalopram (CELEXA) 20 mg tablet 20 mg once daily. 1 tablet daily topiramate (TOPAMAX) 200 mg tablet Take 2 tablets by mouth twice daily. lacosamide (VIMPAT) 200 mg tab Take 2 tablets by mouth twice daily. norethindrone (AYGESTIN) 5 mg tablet Take 2 tablets by mouth once daily. No current facility-administered medications for this visit. [5] Allergies Allergen Reactions Dayquil Liquicaps [* Other: See [...] [Valdecoxib] Rash Cephalexin Intolerance Amoxil is ok documented in this encounter [facility] 11-09-2024 Note HNO ID: [id number] Author: JACKI ZARAGOZA APRN.MILLER HEAD ASSISTANT WET PROCESS Service: ? Author Type: Nurse Practitioner Type: Progress Notes Filed: 11/09/2024 12:29 Note Text: 11/09/2024 Patient presents with: Physical Recording using [email or web address] software for draft documentation of the visit was discussed with the patient/authorized self pay representative; all questions welcomed and answered. Patient/authorized self pay representative agreed to proceed SUBJECTIVE: This is a 44 year old that is here today for Above Complaints.. . Seizures: - Last seen by neurology in June; no medication changes made. - Two seizures since last neurology visit; neurologist notified, no medication changes. - Current medications: topiramate 200 mg BID, Keppra 750 mg BID, Vimpat 2 tablets BID, Zonisamide 200 mg BID. Psychiatry - Managed by a psychiatrist at a counseling center. - Recent medication changes due to issues with an injectable medication. - Current medications: citalopram 20 mg daily, olanzapine 10 mg at bedtime, trazodone 100 mg at bedtime. Asthma: - Uses Advair Diskus BID and albuterol inhaler PRN. Chest Pain and Dyspnea: - Chronic chest pain and dyspnea. - Follow-up with cardiology scheduled for January 09. - CT coronary with IV contrast ordered in March; not yet completed. Cough: - Productive cough with green sputum x1 month. - Reports subjective fevers >100?F, though family member denies fever. Knee Pain: - Chronic bilateral knee pain x2 years, following a fall. - X-rays performed; family member reports bone deterioration. PAST MEDICAL HISTORY Diagnosis Date Abnormal result of cardiovascular function study Adjustment disorder with depressed mood Chest pain Chronic factitious illness with physical symptoms Closed fracture of unspecified bone right arm Closed fracture of unspecified bone left ankle Esophageal reflux Myalgia and myositis, unspecified Other forms of dyspnea Seizure disorder (HCC) 09/26/2011 SOB (shortness of breath) Unspecified asthma, with status asthmaticus ALLERGIES Dayquil Liquicaps [Pzhqvdfor-Sc-Er-Acetaminophen], Arithromycin [Azithromycin], Doxycycline, Latex, Mucinex Dm [Dextromethorphan-Guaifenesin], Risperdal [Risperidone], Strawberries, Tamiflu [Oseltamivir Phosphate], Topiramate, Bextra [Valdecoxib], and Cephalexin MEDICATIONS Current Outpatient Medications Medication Sig OLANZapine orally disintegrating (ZYPREXA ZYDIS) 10 mg disintegrating tablet Take 1 tablet by mouth daily at bedtime. traZODone (DESYREL) 100 mg tablet Take 1 tablet by mouth daily at bedtime. cyanocobalamin (VITAMIN B-12) 1,000 mcg tab Take 1 tablet by mouth once daily. zonisamide (ZONEGRAN) 100 mg capsule 2 capsules by mouth twice daily montelukast (SINGULAIR) 10 mg tablet Take 1 tablet by mouth daily at bedtime. omeprazole (PRILOSEC) 40 mg capsule Take 1 capsule by mouth once daily. cetirizine (ZYRTEC) 10 mg tablet Take 1 tablet by mouth once daily. levETIRAcetam (KEPPRA) 750 mg tablet Take 1 tablet by mouth two times a day. albuterol HFA (VENTOLIN HFA) 90 mcg/actuation inhaler Inhale 2 puffs as instructed every 4 hours as needed for wheezing/shortness of breath. fluticasone-salmeterol (ADVAIR DISKUS) 250-50 mcg/dose inhaler Inhale 1 puff as instructed two times a day. Rinse and gargle mouth after use with water. metoprolol succinate ER (TOPROL XL) 25 mg 24 hr tablet Take 1 tablet by mouth once daily. TYLENOL ARTHRITIS PAIN 650 mg CR tablet Take 1 tablet by mouth every 8 hours as needed. citalopram (CELEXA) 20 mg tablet 20 mg once daily. 1 tablet daily topiramate (TOPAMAX) 200 mg tablet Take 2 tablets by mouth twice daily. lacosamide (VIMPAT) 200 mg tab Take 2 tablets by mouth twice daily. No current facility-administered medications for this visit. Medications and allergies reviewed by this provider. SOCIAL HISTORY Social History Tobacco Use Smoking status: Never Smokeless tobacco: Never Substance Use Topics Alcohol use: No Drug use: No REVIEW OF SYSTEMS GENERAL: No weight loss, malaise HEENT: Negative for frequent or significant headaches, No changes in hearing or vision, no nose bleeds or other nasal problems NECK: Negative for lumps, goiter, pain and significant neck swelling RESPIRATORY: See HPI CARDIOVASCULAR: See HPI GI: No nausea, vomiting, or diarrhea : No history of dysuria, frequency or incontinence DIVISION SUPERVISOR: Negative for abnormal vaginal bleeding, abnormal vaginal discharge MUSCULOSKELETAL: Hx of chronic knee pain bilaterally SKIN: Negative for lesions, rash, and itching PSYCH: See HPI HEMATOLOGY/LYMPHOLOGY: Negative for prolonged bleeding, bruising easily or swollen nodes ENDOCRINE: Negative for cold or heat intolerance, polyuria, polydipsia and goiter NEURO: No history of headaches, syncope, paralysis, seizures or tremors All other reviewed and negative other than HPI. OBJECTIVE: BP 116/78 Pulse 86 Temp 36.8 ?C (98.3 ?F (more content not included)... [facility] 11-09-2024 History of Presen t illness Narrative 11/09/2024 Patient presents with: Physical Recording using [email or web address] software for draft documentation of the visit was discussed with the patient/authorized self pay representative; all questions welcomed and answered. Patient/authorized self pay representative agreed to proceed SUBJECTIVE: This is a 44 year old that is here today for Above Complaints.. . Seizures: - Last seen by neurology in June; no medication changes made. - Two seizures since last neurology visit; neurologist notified, no medication changes. - Current medications: topiramate 200 mg BID, Keppra 750 mg BID, Vimpat 2 tablets BID, Zonisamide 200 mg BID. Psychiatry - Managed by a psychiatrist at a counseling center. - Recent medication changes due to issues with an injectable medication. - Current medications: citalopram 20 mg daily, olanzapine 10 mg at bedtime, trazodone 100 mg at bedtime. Asthma: - Uses Advair Diskus BID and albuterol inhaler PRN. Chest Pain and Dyspnea: - Chronic chest pain and dyspnea. - Follow-up with cardiology scheduled for January 09. - CT coronary with IV contrast ordered in March; not yet completed. Cough: - Productive cough with green sputum x1 month. - Reports subjective fevers >100 F, though family member denies fever. Knee Pain: - Chronic bilateral knee pain x2 years, following a fall. - X-rays performed; family member reports bone deterioration. PAST MEDICAL HISTORY Diagnosis Date Abnormal result of cardiovascular function study Adjustment disorder with depressed mood Chest pain Chronic factitious illness with physical symptoms Closed fracture of unspecified bone right arm Closed fracture of unspecified bone left ankle Esophageal reflux Myalgia and myositis, unspecified Other forms of dyspnea Seizure disorder (HCC) 09/26/2011 SOB (shortness of breath) Unspecified asthma, with status asthmaticus ALLERGIES Dayquil Liquicaps [Begfipcti-It-It-Acetaminophen], Arithromycin [Azithromycin], Doxycycline, Latex, Mucinex Dm [Dextromethorphan-Guaifenesin], Risperdal [Risperidone], Strawberries, Tamiflu [Oseltamivir Phosphate], Topiramate, Bextra [Valdecoxib], and Cephalexin MEDICATIONS Current Outpatient Medications Medication Sig OLANZapine orally disintegrating (ZYPREXA ZYDIS) 10 mg disintegrating tablet Take 1 tablet by mouth daily at bedtime. traZODone (DESYREL) 100 mg tablet Take 1 tablet by mouth daily at bedtime. cyanocobalamin (VITAMIN B-12) 1,000 mcg tab Take 1 tablet by mouth once daily. zonisamide (ZONEGRAN) 100 mg capsule 2 capsules by mouth twice daily montelukast (SINGULAIR) 10 mg tablet Take 1 tablet by mouth daily at bedtime. omeprazole (PRILOSEC) 40 mg capsule Take 1 capsule by mouth once daily. cetirizine (ZYRTEC) 10 mg tablet Take 1 tablet by mouth once daily. levETIRAcetam (KEPPRA) 750 mg tablet Take 1 tablet by mouth two times a day. albuterol HFA (VENTOLIN HFA) 90 mcg/actuation inhaler Inhale 2 puffs as instructed every 4 hours as needed for wheezing/shortness of breath. fluticasone-salmeterol (ADVAIR DISKUS) 250-50 mcg/dose inhaler Inhale 1 puff as instructed two times a day. Rinse and gargle mouth after use with water. metoprolol succinate ER (TOPROL XL) 25 mg 24 hr tablet Take 1 tablet by mouth once daily. TYLENOL ARTHRITIS PAIN 650 mg CR tablet Take 1 tablet by mouth every 8 hours as needed. citalopram (CELEXA) 20 mg tablet 20 mg once daily. 1 tablet daily topiramate (TOPAMAX) 200 mg tablet Take 2 tablets by mouth twice daily. lacosamide (VIMPAT) 200 mg tab Take 2 tablets by mouth twice daily. No current facility-administered medications for this visit. Medications and allergies reviewed by this provider. SOCIAL HISTORY Social History Tobacco Use Smoking status: Never Smokeless tobacco: Never Substance Use Topics Alcohol use: No Drug use: No REVIEW OF SYSTEMS GENERAL: No weight loss, malaise HEENT: Negative for frequent or significant headaches, No changes in hearing or vision, no nose bleeds or other nasal problems NECK: Negative for lumps, goiter, pain and significant neck swelling RESPIRATORY: See HPI CARDIOVASCULAR: See HPI GI: No nausea, vomiting, or diarrhea : No history of dysuria, frequency or incontinence DIVISION SUPERVISOR: Negative for abnormal vaginal bleeding, abnormal vaginal discharge MUSCULOSKELETAL: Hx of chronic knee pain bilaterally SKIN: Negative for lesions, rash, and itching PSYCH: See HPI HEMATOLOGY/LYMPHOLOGY: Negative for prolonged bleeding, bruising easily or swollen nodes ENDOCRINE: Negative for cold or heat intolerance, polyuria, polydipsia and goiter NEURO: No history of headaches, syncope, paralysis, seizures or tremors All other reviewed and negative other than HPI. OBJECTIVE: BP 116/78 Pulse 86 Temp 36.8 C (98.3 F) Resp 18 LMP 06/17/2023 (Approximate) SpO2 98% . Vital signs reviewed by this provider. GENERAL: NAD, alert and oriented. SKIN: Unremarkable, no rash or skin lesions to exposed skin HEAD: Normocephalic. EYES: conjunctiva clear. EARS: External ears normal, canals clear, TM's normal. OROPHARYNX: Lips, mucosa, and tongue normal, good dentition. No oral lesions noted. NECK: Supple, no lymphadenopathy, normal thyroid, no carotid bruits. No discernible lumps or masses. LUNGS: Clear to auscultation bilaterally, no wheezes/rhonchi/rales. HEART: Regular rate and rhythm, no murmurs. No ectopy. EXTREMITIES: Normal, no deformities, no skin discoloration, no edema. Hepatitis C Screening Never done Hepatitis B Vaccine(1 of 3 - 19+ 3-dose series) Never done Mammogram Screening Never done Cervical Cancer Screening due on 06/03/2023 Medicare Advantage Annual Wellness Visit Never done Depression Screening due on 10/08/2024 Anxiety Screening due on 10/08/2024 Influenza Vaccine(1) due on 12/19/2024 Annual PCP Team Chronic Disease Visit due on 11/09/2025 DTaP,Tdap,Td Vaccine(2 - Td or Tdap) due on 06/03/2028 HIV Screening Completed Pneumococcal Vaccine Completed 1. Annual physical exam (Z00.00) - Completed comprehensive physical examination. - Ordered mammogram to be performed at the [facility]. - Scheduled follow-up in one year with Dr. Tan or Janet. 2. Acute cough (R05.1) - Coughing for about a month, with reports of green sputum production and subjective fevers. - Lungs auscultated clear. - Ordered chest X-ray to rule out pneumonia. 3. Chronic pain of both knees (M25.561) - Chronic knee pain reportedly due to a fall a few years ago; X-rays previously performed. - Ordered physical therapy to be conducted at the [facility]. - Advised follow-up if no improvement, prior to considering orthopedic referral. 4. Class 3 severe obesity with body mass index (BMI) of 50.0 to 59.9 in adult, unspecified obesity type, unspecified whether serious comorbidity present (HCC) (E66.813) - Discussed weight management strategies, including dietary modifications. - Advised incorporating protein shakes as meal supplements, not replacements, emphasizing a well-balanced diet with lean meats and vegetables. - Encouraged regular physical activity as tolerated. 5. Seizure disorder (HCC) (G40.909) - Managed by neurology at [facility] in [place]; last seen in June with no medication changes. - Two seizures reported since last visit; neurology notified, no adjustments made to current regimen. - Current medications include Topiramate 200 mg two tablets BID, Keppra 750 mg two tablets BID, Vimpat two tablets BID, and Zonisamide 200 mg two capsules BID. 6. Mild intermittent asthma with status asthmaticus (HCC) (J45.22) - Managed with Advair Diskus BID and Albuterol inhaler as needed. - Reinforced adherence to current inhaler regimen. 7. Delusional disorders (HCC) (F22) - Managed by psychiatric services at the [facility]. - Current medications include Citalopram 20 mg daily, Olanzapine 10 mg at bedtime, and Trazodone 100 mg at bedtime. - Recent medication adjustments made by psychiatry; awaiting further details on injectable medication changes. 8. Conversion disorder (F44.9) - plan as in #7 Jacki Zaragoza APRN.CNP Prescription instructions reviewed with patient as applicable. Patient advised if symptoms do not improve or if symptoms worsen sooner, to contact their primary care physician. Potential red flag symptoms discussed with the patient. Reviewed appropriate action plan to take if red flag symptoms occur. Patient agreeable to treatment plan. documented in this encounter [facility] 11-07-2024 Telephone encounter Note Chart says patient needs scheduled for 40 minute appointments. Please schedule appropriately. Jacki Zaragoza APRN.CNP [facility] Work Phone: 11-07-2024 Miscellaneous Notes Chart says patient needs scheduled for 40 minute appointments. Please schedule appropriately. Jacki Zaragoza APRN.CNP documented in this encounter [facility] 10-24-2024 Telephone encounter Note Call placed to Pt's mother-informed her that according to Dr. Pitts's note from 07/2023, Pt should see Urology. Pt's mother states Pt has not seen any other provider for PCOS. She states she is wheelchair bound, has a lot of health problems, and her mind has been slipping and she just found this slip of paper in her purse so that is why she called. Informed her Pt also is due for an annual exam. She states she would like Pt seen soon for PCOS as well as fact that Pt has yeast infection under breast, under abdominal folds and she does have powder, but Pt will not use. Offered appointments this week; however, do not work for Pt's mother to bring her. Appt scheduled for 06/07/24. Shima Hahn RN [facility] 10-24-2024 Miscellaneous Notes Call placed to Pt's mother-informed her that according to Dr. Pitts's note from 07/2023, Pt should see Urology. Pt's mother states Pt has not seen any other provider for PCOS. She states she is wheelchair bound, has a lot of health problems, and her mind has been slipping and she just found this slip of paper in her purse so that is why she called. Informed her Pt also is due for an annual exam. She states she would like Pt seen soon for PCOS as well as fact that Pt has yeast infection under breast, under abdominal folds and she does have powder, but Pt will not use. Offered appointments this week; however, do not work for Pt's mother to bring her. Appt scheduled for 06/07/24. Shima Hahn RN Pt has not been seen in our office for PCOS since 2018. Shima Hahn RN Mother, Kennedi, called to report that she found a note in her purse that the patient needed to request a referral to DIVISION SUPERVISOR for her PCOS dx. PSS unable to find recent documented conversation regarding PCP needing to place referral. Mother unsure if the provider she made the note for was within [facility]. Patient last seen for PCOS By Dr. Moeller on . Patient is overdue to annual women's health exam. Mother declined to schedule patient for annual or OV in gynecology until she heard back from PCP. Please contact Kennedi to alinae. documented in this encounter [facility] 10-24-2024 Telephone encounter Note Pt has not been seen in our office for PCOS since 2018. Shima Hahn, PIERO [facility] 10-22-2024 Telephone encounter Note Mother, Kennedi, called to report that she found a note in her purse that the patient needed to request a referral to DIVISION SUPERVISOR for her PCOS dx. PSS unable to find recent documented conversation regarding PCP needing to place referral. Mother unsure if the provider she made the note for was within [facility]. Patient last seen for PCOS By Dr. Moeller on . Patient is overdue to annual women's health exam. Mother declined to schedule patient for annual or OV in gynecology until she heard back from PCP. Please contact Kennedi to alinae. [facility] 10-17-2024 Telephone encounter Note OK to refill as ordered Daniel Tan MD [facility] 10-17-2024 Miscellaneous Notes OK to refill as ordered Daniel Tan MD [facility] calls and states that patient is transferring medication to them. Pharmacy is needing the following medications. The patient has been identified by name and date of : Yes Caregiver verified no other encounters exist for this prescription request: Yes Caregiver confirmed with patient/requestor that no other refills are due, in the near future, with this provider at this time: Yes The last office visit in the department: 09/05/2024 Does the patient have a future office visit with this provider/department: Yes 10/28/2024 Requested Prescriptions Pending Prescriptions Disp Refills montelukast (SINGULAIR) 10 mg tablet 90 tablet 0 Sig: Take 1 tablet by mouth daily at bedtime. omeprazole (PRILOSEC) 40 mg capsule 90 capsule 3 Sig: Take 1 capsule by mouth once daily. cetirizine (ZYRTEC) 10 mg tablet 90 tablet 3 Sig: Take 1 tablet by mouth once daily. Queta Garcia RN October 17, 2024 3:16 PM documented in this encounter [facility] 10-17-2024 Telephone encounter Note [facility] calls and states that patient is transferring medication to them. Pharmacy is needing the following medications. The patient has been identified by name and date of : Yes Caregiver verified no other encounters exist for this prescription request: Yes Caregiver confirmed with patient/requestor that no other refills are due, in the near future, with this provider at this time: Yes The last office visit in the department: 09/05/2024 Does the patient have a future office visit with this provider/department: Yes 10/28/2024 Requested Prescriptions Pending Prescriptions Disp Refills montelukast (SINGULAIR) 10 mg tablet 90 tablet 0 Sig: Take 1 tablet by mouth daily at bedtime. omeprazole (PRILOSEC) 40 mg capsule 90 capsule 3 Sig: Take 1 capsule by mouth once daily. cetirizine (ZYRTEC) 10 mg tablet 90 tablet 3 Sig: Take 1 tablet by mouth once daily. Queta Garcia RN October 17, 2024 3:16 PM [facility] 10-04-2024 Telephone encounter Note Noted Daniel Tan MD [facility] 10-04-2024 Miscellaneous Notes Noted Daniel Tan MD Patient's mother, Kennedi, called to report that the patient was unable to arrive for today's wellness visit. 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 She reports that the patient experiences seizures if wakened too early in the morning. PSS scheduled patient to provider's next available opening on 01/07/25. Patient has been placed on [facility]'s wait list. Mother requested for PSS to notify provider of patient's situation. documented in this encounter [facility] 10-04-2024 Telephone encounter Note Patient's mother, Kennedi, called to report that the patient was unable to arrive for today's wellness visit. 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 She reports that the patient experiences seizures if wakened too early in the morning. PSS scheduled patient to provider's next available opening on 01/07/25. Patient has been placed on [facility]'s wait list. Mother requested for PSS to notify provider of patient's situation. [facility] 09-26-2024 Telephone encounter Note Call to pt's Mother and notified her of message below from Provider. Mother asking if anything else could be prescribed to help her pain. This has been reviewed in the past that Tylenol is the safest thing to take due to the medications she's currently. Mother notes she's allergic to it, but at that time someone else picked up the phone and reported pt is not allergic to it, she just doesn't want to take it and wants something else. Mother stated she wouldn't take it and pt's brother reported something about bun in the oven, unsure what exactly was stated. Mother asking about Gabapentin, this was previously discussed that PCP did not want to prescribe due to her medications she's taking and advised Pain Mgmt consult, but this was never setup, due to pt's Insurance. She was advised to contact pt's insurance. Recommended that pt takes 9 day taper and use Tylenol for pain. Mother understood. Chantel Townsend MA [facility] 09-26-2024 Miscellaneous Notes Call to pt's Mother and notified her of message below from Provider. Mother asking if anything else could be prescribed to help her pain. This has been reviewed in the past that Tylenol is the safest thing to take due to the medications she's currently. Mother notes she's allergic to it, but at that time someone else picked up the phone and reported pt is not allergic to it, she just doesn't want to take it and wants something else. Mother stated she wouldn't take it and pt's brother reported something about bun in the oven, unsure what exactly was stated. Mother asking about Gabapentin, this was previously discussed that PCP did not want to prescribe due to her medications she's taking and advised Pain Mgmt consult, but this was never setup, due to pt's Insurance. She was advised to contact pt's insurance. Recommended that pt takes 9 day taper and use Tylenol for pain. Mother understood. Chantel Townsend MA OK for 9 day prednisone taper Daniel Tan MD Patient's mother calls and states that patient continues with Left Knee pain and is asking if provider can send in a refill of prednisone. Advised Mother that provider had sent in prescription last week. Mother states that patient has 3.5 days worth of medication, however, patient continues to be in a lot of pain with her stretched tendons. Mother states that patient needs something to help with pain. Please review and advise, Queta Garcia RN documented in this encounter [facility] 09-26-2024 Telephone encounter Note OK for 9 day prednisone taper Daniel Tan MD [facility] 09-26-2024 Telephone encounter Note Patient's mother calls and states that patient continues with Left Knee pain and is asking if provider can send in a refill of prednisone. Advised Mother that provider had sent in prescription last week. Mother states that patient has 3.5 days worth of medication, however, patient continues to be in a lot of pain with her stretched tendons. Mother states that patient needs something to help with pain. Please review and advise, Queta Garcia RN [facility] 09-19-2024 Telephone encounter Note OK to refill as ordered Daniel Tan MD [facility] 09-19-2024 Miscellaneous Notes OK to refill as ordered Daniel Tan MD Patient's mother calls and states that patient's left knee continues to be swollen. Mother is asking if provider can send in another dose of prednisone? Please review and advise, Queta Garcia RN documented in this encounter [facility] 09-19-2024 Telephone encounter Note Patient's mother calls and states that patient's left knee continues to be swollen. Mother is asking if provider can send in another dose of prednisone? Please review and advise, Queta Garcia RN [facility] 09-16-2024 Telephone encounter Note Noted Daniel Tan MD [facility] 09-16-2024 Miscellaneous Notes Noted Daniel Tan MD Was calling family for another issue and mother answered the line stated the patient I was wanting to speak with was not there and then proceeds to ask me why Dr Tc cedeno did not order an xray for this patient at last visit. Patient I guess reported to [facility] a few days ago discovered she does have pulled ligaments and tendons per mother and how long will this take to heal, I offered to arrange Er follow up and mother declined. documented in this encounter [facility] 09-14-2024 Telephone encounter Note Was calling family for another issue and mother answered the line stated the patient I was wanting to speak with was not there and then proceeds to ask me why Dr Tc cedeno did not order an xray for this patient at last visit. Patient I guess reported to [facility] a few days ago discovered she does have pulled ligaments and tendons per mother and how long will this take to heal, I offered to arrange Er follow up and mother declined. [facility] 09-05-2024 History of Presen t illness Narrative Chief Complaint Fall Illness HPI Maria Del Rosario Laws is a 44 year old female who presents here today for fall. Pt here with her Sister, Jacki. Pt fell and c/o injuring her L knee, hip, and ankle pain that is sharp. In a wheelchair today due to difficulty getting around with her pain Pt reports she fell about a week ago when she was coming out of the bathroom and started experiencing a seizure. Pt believes her left leg may be infected. Pt has been complaining of chronic knee pain for sometime. Was referred to Dr. Duque in Pain Management but their office did not accept pt insurance. Mother was notified of that and was supposed to notify office of where to refer once she spoke to her insurance to see who was in network for Pain management. Mother has contacted office with questions about starting Gabapentin for pain control or some other medication that would help control pain. Pt is asking about this as well today. Advised that Tylenol was safe to take due to hx of seizures. Pt notes she's been feeling unwell, reports recent illness of bronchitis and pneumonia. Is coughing up green phlegm. Asking for Tessalon Pearls and possibly Augmentin or Amoxicillin. Past medical history, appointments, medications, allergies reviewed. [...] Father Seizures Father Seizures Brother Heart Sister GA Heart Sister Seizures Sister Young Diabetes Maternal [...] on File Prior to Visit Medication Sig fluticasone-salmeterol (ADVAIR DISKUS) 250-50 mcg/dose inhaler Inhale 1 puff as instructed two times a day. Rinse and gargle mouth after use with water. montelukast (SINGULAIR) 10 mg tablet Take 1 tablet by mouth daily at bedtime. cyclobenzaprine (FLEXERIL) 10 mg tablet Take 1 tablet by mouth three times a day as needed for muscle spasm. metoprolol succinate ER (TOPROL XL) 25 mg 24 hr tablet Take 1 tablet by mouth once daily. benzonatate (TESSALON PERLES) 100 mg capsule Take 2 capsules by mouth three times a day as needed. Dextromethorphan-guaiFENesin (ROBITUSSIN DM) 10-200 mg/5 mL liqd Take 5 mL by mouth every 6 hours as needed. TYLENOL ARTHRITIS PAIN 650 mg CR tablet Take 1 tablet by mouth every 8 hours as needed. omeprazole (PRILOSEC) 40 mg capsule Take 40 mg by mouth once daily. albuterol HFA (VENTOLIN HFA) 90 mcg/actuation inhaler Inhale 2 Puffs as instructed every 4 hours as needed for wheezing/shortness of breath. benztropine (COGENTIN) 1 mg tablet TAKE 1 & 1/2 (ONE AND ONE-HALF) TABLETS BY MOUTH IN THE MORNING and ONE TABLET AT BEDTIME citalopram (CELEXA) 20 mg tablet 20 mg once daily. 1 tablet daily zonisamide (ZONEGRAN) 100 mg capsule Take 100 mg by mouth once daily. 2 capsules by mouth twice daily levETIRAcetam (KEPPRA) 750 mg tablet Take 1,000 mg by mouth two times a day. Norethindrone, Contraceptive, (ORTHO MICRONOR) 0.35 mg tablet Take 1 tablet by mouth once daily. (Patient not taking: Reported on 03/18/2024) iloperidone (FANAPT) 4 mg tab Take 1 [...] use: No Drug use: No EXAM: BP 116/80 (BP Site: Right Arm, BP Position: Sitting, BP Cuff Size: Regular Adult) Pulse 82 Resp 18 LMP 06/17/2023 (Approximate) General Appearance: Well appearing, alert, in no acute distress, well-hydrated, well nourished., Morbidly obese, and occ cough. Lungs: Lungs clear to auscultation. No wheezing, rhonchi, rales.. Heart: RRR without murmur, gallop, or rubs. No ectopy. Egs: no swelling or effusions noted, mild tenderness to palpation around ankles Health Maintenance List Hepatitis C Screening Never done Hepatitis B Vaccine(1 of 3 - 19+ 3-dose series) Never done Mammogram Screening Never done Cervical Cancer Screening due on 06/03/2023 Covid-19 Vaccine( season) Never done Depression Screening due on 10/08/2024 Anxiety Screening due on 10/08/2024 Influenza Vaccine(Season Ended) due on 12/19/2024 Annual PCP Team Chronic Disease Visit due on 08/12/2025 DTaP,Tdap,Td Vaccine(2 - Td or Tdap) due on 06/03/2028 HIV Screening Completed Pneumococcal Vaccine Completed Data reviewed none ASSESSMENT/PLAN: 1. Seizure disorder (HCC) - ICD9: 345.90, ICD10: G40.909 (primary diagnosis) Continue current medications. Follow with Neurology -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 appt to discuss further other issues. Chantel Townsend MA [facility] 08-04-2024 Telephone encounter Note Notified Mother referral has been placed and all paperwork will be faxed to office. Mother understood. Chantel Townsend MA [facility] 08-04-2024 Miscellaneous Notes Notified Mother referral has been placed and all paperwork will be faxed to office. Mother understood. Chantel Townsend MA OK to refer as requested Daniel Tan MD Patient mother Kennedi cheung asking for referral to Pain Management to Dr Bruno Holder fax is [phone]. Mother said daughter has hermelindo knee pain and back pain can hardly walk, wants to have Dr put her on Gabapentin rx. Pending consult, needs diagnosis. Please advise documented in this encounter [facility] 08-04-2024 Telephone encounter Note Her lab results from [facility] all look OK to me. Urine did not show definite signs of infection, if she continues to have symptoms she would need to be seen. Daniel Tan MD [facility] 08-04-2024 Telephone encounter Note Office received labs from [facility]. These have been scanned into pt's chart. Chantel Townsend MA [facility] 08-04-2024 Telephone encounter Note OK to refer as requested Daniel Tan MD [facility] 08-04-2024 Telephone encounter Note Patient mother Kennedi calling asking for referral to Pain Management to Dr Bruno Holder fax is [phone]. Mother said daughter has hermelindo knee pain and back pain can hardly walk, wants to have Dr put her on Gabapentin rx. Pending consult, needs diagnosis. Please advise [facility] 08-04-2024 Telephone encounter Note Patient's mother Kennedi calling in and states patient had a urine test and labs, ordered by behavioral health specialist and completed through [facility] and she has not heard back about the results. Reports she is going to call [facility] today and request those test results be faxed to Dr. Tan's office for him to review and advise. Please call pt's mother with advise, once Dr. Tan is able to review them. Mother states she cannot make an appt for pt anytime soon due to transportation. During call, pt's mother states that patient has has urinary sx's for over 1 month and has not been further evaluated or advised. Sx's include strong odor to urine, darker color, frequency and back pain. Mother does not think pt has had a fever or chills.This nurse advised appt with provider today, or as soon as possible. Mother states pt unable to come in due to transportation issues at this time. Of note, patient has had ER visit on 06/08/24 due to seizures. Informed mother that patient is overdue for a wellness appt. Wellness appt made with PCP for 10/04/24, soonest available. Mother requesting pt to be seen by Dr. Tan only. Tala Garcia RN [facility] 07-07-2024 Telephone encounter Note Pts mother called and is notified of providers message. She voices understanding. Emilee Brady RN [facility] 07-07-2024 Miscellaneous Notes Pts mother called and is notified of providers message. She voices understanding. Emilee Brady RN Called and left message on patients voicemail to return call to the office and ask to speak with a FM triage nurse. Update that Rx has vikram sent for Flexeril. Chantel Townsend MA New Rx done Daniel Tan MD Patient mother Kennedi cheung upset that daughter only gets 10 day rx supply of her Cyclobenzaprine at one time. She said she takes the medication three times daily for leg cramps. She would need 90 tablets for a 30 day supply. Patient uses [facility] for her pharmacy. Explained that the rx is written for as needed, short term use rx. Mother is still wanting 90 tablets with refills on the rx. Please advise documented in this encounter [facility] 07-07-2024 Telephone encounter Note Called and left message on patients voicemail to return call to the office and ask to speak with a FM triage nurse. Update that Rx has vikram sent for Flexeril. Chantel Townsend MA [facility] 07-07-2024 Telephone encounter Note New Rx done Daniel Tan MD [facility] 07-07-2024 Telephone encounter Note Patient mother Kennedi cheung upset that daughter only gets 10 day rx supply of her Cyclobenzaprine at one time. She said she takes the medication three times daily for leg cramps. She would need 90 tablets for a 30 day supply. Patient uses [facility] for her pharmacy. Explained that the rx is written for as needed, short term use rx. Mother is still wanting 90 tablets with refills on the rx. Please advise [facility] 06-28-2024 Note Patient Outreach (FA MPWS) LAWSMARIA DEL ROSARIO ([id number]) 1980 F Date Time Provider Department 06/28/24 DANIEL TAN During your visit today, we recorded the following information about you: Allergies As of Date: 06/28/2024 Noted Allergy Reaction DAYQUIL LIQUICAPS ([id number]*09/27/2012 14 - Other: See Comments Comments: Caused Seizure ARITHROMYCIN (AZITHROMYCIN) 10/27/2012 8 - GI Upset Comments: Z-Pack DOXYCYCLINE 07/22/2008 8 - GI Upset LATEX 08/21/2005 2 - Rash MUCINEX DM (DEXTROMETHORPHAN-GUAI* 5 - Intolerance Comments: gran mal seizure. [...] Intolerance Comments: Amoxil is ok Date Reviewed: 04/04/2024 Reviewed by: Wilmer Murillo MD - Fully Assessed Visit Diagnosis:Encounter for screening mammogram for breast cancer [Z12.31] Order(s):[facility] SCRE[facility] [[id number]] Order #: [id number] FUTURE Prescriptions as of 07/29/2024 - cyclobenzaprine (FLEXERIL) 10 mg tablet Take 1 tablet by mouth three times a day as needed for muscle spasm. - metoprolol succinate ER (TOPROL XL) 25 mg 24 hr tablet Take 1 tablet by mouth once daily. - benzonatate (TESSALON PERLES) 100 mg capsule Take 2 capsules by mouth three times a day as needed. - Dextromethorphan-guaiFENesin (ROBITUSSIN DM) 10-200 mg/5 mL liqd Take 5 mL by mouth every 6 hours as needed. - fluticasone-salmeterol (ADVAIR DISKUS) 250-50 mcg/dose inhaler Inhale 1 Puff as instructed two times a day. Rinse and gargle mouth after use with water. - TYLENOL ARTHRITIS PAIN 650 mg CR tablet Take 1 tablet by mouth every 8 hours as needed. - omeprazole (PRILOSEC) 40 mg capsule Take 40 mg by mouth once daily. - albuterol HFA (VENTOLIN HFA) 90 mcg/actuation inhaler Inhale 2 Puffs as instructed every 4 hours as needed for wheezing/shortness of breath. - benztropine (COGENTIN) 1 mg tablet TAKE 1 AND 1/2 (ONE AND ONE-HALF) TABLETS BY MOUTH IN THE MORNING and ONE TABLET AT BEDTIME - montelukast (SINGULAIR) 10 mg tablet Take 1 tablet by mouth daily at bedtime. - citalopram (CELEXA) 20 mg tablet 20 mg once daily. 1 tablet daily - zonisamide (ZONEGRAN) 100 mg capsule Take 100 mg by mouth once daily. 2 capsules by mouth twice daily - levETIRAcetam (KEPPRA) 750 mg tablet Take 1,000 mg by mouth two times a day. - Norethindrone, Contraceptive, (ORTHO MICRONOR) 0.35 mg tablet Take 1 tablet by mouth once daily. - iloperidone (FANAPT) 4 mg tab [...] Ma [birth year] Taking Vimpat, Zonegran, and Albuterol. Linda Wall RN Problem List As Of Date 06/28/2024 Noted Resolved Other malaise and fatigue [R53.81, R53.83] 12/30/2004 11/06/2014 Myalgia and myositis, unspecified [[id number]] 05/08/2014 ESOPHAGEAL REFLUX [K21.9] Chronic factitious illness [...] Class III, BMI >= 40 [E66.01] 06/03/2018 Abnormal nuclear cardiac imaging test [R93.1] 07/27/2023 Other chest pain [R07.89] 07/27/2023 Encounter Status:Closed by EPIC, PRODUSER on 07/29/24 [facility] 06-21-2024 Telephone encounter Note OK to refill as ordered Daniel Tan MD [facility] 06-21-2024 Miscellaneous Notes OK to refill as ordered Daniel Tan MD The patient has been identified by name and date of : Yes Caregiver verified no other encounters exist for this prescription request: Yes Caregiver confirmed with patient/requestor that no other refills are due, in the near future, with this provider at this time: Yes The last office visit in the department: 01/21/2024 Does the patient have a future office visit with this provider/department: No Requested Prescriptions Pending Prescriptions Disp Refills cyclobenzaprine (FLEXERIL) 10 mg tablet 30 tablet 5 Sig: Take 1 tablet by mouth three times a day as needed for muscle spasm. Gabriella Cano RN June 21, 2024 3:21 PM documented in this encounter [facility] 06-21-2024 Telephone encounter Note The patient has been identified by name and date of : Yes Caregiver verified no other encounters exist for this prescription request: Yes Caregiver confirmed with patient/requestor that no other refills are due, in the near future, with this provider at this time: Yes The last office visit in the department: 01/21/2024 Does the patient have a future office visit with this provider/department: No Requested Prescriptions Pending Prescriptions Disp Refills cyclobenzaprine (FLEXERIL) 10 mg tablet 30 tablet 5 Sig: Take 1 tablet by mouth three times a day as needed for muscle spasm. Gabriella Cano RN June 21, 2024 3:21 PM [facility] 06-13-2024 Telephone encounter Note [facility] scheduling called to let you know they reached out to patient 3x to schedule but the last time they reached the patient she said she would think about it but did not schedule and told them she would call back. Sally Cyr LPN [facility] 06-13-2024 Miscellaneous Notes [facility] scheduling called to let you know they reached out to patient 3x to schedule but the last time they reached the patient she said she would think about it but did not schedule and told them she would call back. Sally Cyr LPN documented in this encounter [facility] 06-10-2024 Hospital Discharg e instructions Patient Education 06/10/2024 14:38:50 Acute Pain, Adult Acute Pain, Adult Acute pain is a type of sudden pain that may last for just a few days or for as long as six months. It is often related to an illness, injury, or medical procedure. Acute pain may be mild, moderate, or severe. Pain can make it hard for you to do your normal, daily activities. It can cause anxiety and lead to other problems if it is left untreated. Treatment depends on the cause and severity of your pain. Acute pain usually goes away once your injury has healed or you are no longer ill. Follow these instructions at home: Medicines Take jdhe-xvu-ccvbhkw and prescription medicines only as told by your health care provider. Take the lowest dose of medicine for the shortest amount of time needed to relieve the pain. If you are taking prescription pain medicine: ?Do not stop taking the medicine suddenly. Talk to your health care provider about how and when to discontinue prescription medicine. ?Do not take more pills than told by your health care provider even if your pain is severe. ?Do not take other kmnd-kkl-utpvajf pain medicines in addition to prescription pain medicine unless told by your health care provider. ?Ask your health care provider if the medicine requires you to avoid driving or using heavy machinery. ?Ask your health care provider if the medicine can cause constipation. You may need to take these actions to prevent or treat constipation: ?Drink enough fluid to keep your urine pale yellow. ?Eat foods that are high in fiber, such as beans, whole grains, and fresh fruits and vegetables. ?Take wlyv-eag-kauqakn or prescription medicines. ?Limit foods that are high in fat and processed sugars, such as fried or sweet foods. Managing pain, stiffness, and swelling If directed, put ice on the affected area. To do this: Put ice in a plastic bag. Place a towel between your skin and the bag. Leave the ice on for 20 minutes, 2 3 times a day. If directed, apply heat to the affected area as often as told by your health care provider. Use the heat source that your health care provider recommends, such as a moist heat pack or a heating pad. Place a towel between your skin and the heat source. Leave the heat on for 20 30 minutes. Remove the heat if your skin turns bright red. This is especially important if you are unable to feel pain, heat, or cold. You may have a greater risk of getting burned. Activity Rest as told by your health care provider. Return to your normal activities as told by your health care provider. Ask your health care provider what activities are safe for you. General instructions Check your pain level as told by your health care provider. Ask your health care provider if other strategies such as distraction, relaxation, or physical therapies can help your pain. Keep all follow-up visits as told by your health care provider. This is important. Contact a health care provider if: Your pain is not controlled by medicine. Your pain does not improve or gets worse. You have side effects from pain medicines, such as vomiting or confusion. Get help right away if you: Have severe pain. Have trouble breathing. Lose consciousness. Have chest pain or pressure that lasts for more than a few minutes, or if you have other symptoms along with chest pain, including if you: ?Have pain or discomfort in one or both arms, your back, neck, jaw, or stomach. ?Have shortness of breath. ?Break out in a cold sweat. ?Feel nauseous. ?Become light-headed. These symptoms may represent a serious problem that is an emergency. Do not wait to see if the symptoms will go away. Get medical help right away. Call your local emergency services (911 in the [place] Do not drive yourself to the hospital. Summary Acute pain may be mild, moderate, or severe. It usually goes away once your injury has healed or you are no longer ill. Take gpxr-ebb-dugrxpn and prescription medicines only as told by your health care provider. Ask your health care provider if the medicine prescribed to you can cause constipation. Contact a health care provider if your pain is not controlled by medicine. This information is not intended to replace advice given to you by your health care provider. Make sure you discuss any questions you have with your health care provider. Document Released: 04/20/2016 Document Revised: 08/22/2019 Document Reviewed: 08/22/2019 [employer] Patient Education 2020 IPG. Follow Up Care 06/09/2024 00:50:50 With:DANIEL TAN MD Address: [address] [place] [id number] When:1-2 days Comments:Please call the office to schedule a hospital follow up appointment. [facility] 06-10-2024 Discharge summary Date of Service 06/14/2024 Discharge Diagnosis Breakthrough seizure Medication compliance Leukocytosis Lactic acidosis Urinary retention Hospital Course 43-year-old female with a history of intellectual disability, seizure disorder, asthma, PCOS, GERD, morbid obesity, and FRANSISCO, presented to [facility] ER via EMT after experiencing three seizures within 45 minutes at home, without returning to baseline. En route, she received 5 mg of IM Versed. She reported feeling unwell and stressed for the past few days. She was compliant with her anti-seizure medication and had seen her neurologist less than six months ago. Upon arrival at the ER, her vital signs were within normal limits, she was responsive and following commands, and did not require intubation. In the ED, she was given normal saline (2L bolus), Keppra (3 g IVPB), and Flexeril (10 mg p.o.). Lab results showed leukocytosis (WBC 15), normal platelet count (292), hemoglobin (14.2), sodium (140), potassium (3.7), and creatinine (1.19). Lactic acid levels were elevated at 7.6, likely due to seizures. Liver enzymes AST and ALT were elevated at 20, and troponin levels were normal (<3). Thyroid function tests showed TSH 7.93, with normal free T4 (0.89) and T3 (2.7). The test and UA were negative. A CT head/brain showed no acute intracranial abnormalities, and an EKG showed sinus rhythm (HR 96 bpm) with no acute ischemic changes and QTc 432. The patient, on Topamax, Keppra, Lacosamide, and Zonisamide, received normal saline (2L bolus), Keppra (3 g IVPB), and Flexeril (10 mg p.o.). Consultation with Dr. Whelan, a neuro ICU physician, confirmed that ICU admission was not necessary, and the patient was transferred to [facility] for further evaluation and management. Patient was admitted and treated for: Breakthrough seizure, due to medication noncompliance She was loaded with 3 g Keppra upon admission, and her medication was resumed, no breakthrough seizures during hospital stay. She was evaluated by neurology, EEG occasional left frontal temporal epileptiform discharges, no seizures, and cleared for discharge, after counseled about medication compliance. Leukocytosis with left shift POA probably reactive, resolved Lactic acidosis POA probably due to seizures Urinary retention s/p Hung placement in ED, Hung was removed prior to discharge Chronic issues: Intellectual disability PCOS GERD Morbid obesity FRANSISCO Allergies Osseo C (Moderate) Zithromax unknown cephalexin Unknown body region chlorpheniramine Seizure dextromethorphan Seizure doxycycline Nausea phenylpropanolamine Seizure pseudoephedrine Seizure Consults Consult to Physician (Physician Consult) - Ordered -- 06/09/24 9:31:00 ARTEMIO MERRILL RAMNATH SANTOSH MD, Routine, controlled seizures Objective Vitals and Measurements T: 36.7 C (Oral) TMIN: 36.3 C (Oral) TMAX: 36.8 C (Oral) HR: 79 (Monitored) RR: 19 BP: 118/73 SpO2: 96% Weight Dosing Weight: 131 kg (06/09/24) Code Status No qualifying data available. Admission Date 06/09/2024 Discharge Date 06/10/2024 Medications Changed lacosamide (lacosamide 150 mg oral capsule, extended release)2 cap by mouth once a day. paliperidone (Invega Sustenna 234 mg/1.5 mL intramuscular suspension, extended release)1 Milliliter Intramuscular once a month. Unchanged albuterol (Proventil HFA 90 mcg/inh inhalation aerosol)2 puff(s) by inhalation four (4) times a day. Refills: 0. benztropine (benztropine 1 mg oral tablet)1 tab(s) by mouth once a day. calcium-vitamin D (Calcium 600+D oral tablet)1 tab(s) by mouth every day. citalopram (citalopram 20 mg oral tablet)1 tab(s) by mouth once a day. fluticasone (Flovent HFA 44 mcg/inh inhalation aerosol)Inhale 1 Puff as instructed twice daily.. ibuprofen (ibuprofen 600 mg oral tablet)1 tab(s) by mouth every 6 hours as needed as needed for pain. iloperidone (iloperidone 4 mg oral tablet)1 tab(s) by mouth daily at bedtime. [id number] Milligram by mouth two (2) times a day. montelukast (montelukast 10 mg oral tablet)1 tab(s) by mouth once a day. multivitamin (Multivitamin)1 tab(s) by mouth every day. topiramate (Topamax 200 mg oral tablet)2 tab(s) by mouth two (2) times a day. zonisamide (zonisamide 100 mg oral capsule)2 cap by mouth two (2) times a day. Discontinued amoxicillin-clavulanate (amoxicillin-clavulanate 875 mg-125 mg oral tablet)1 tab(s) by mouth every 12 hours for 7 Days. cetirizine (cetirizine 10 mg oral tablet)1 tab(s) by mouth once a day. drospirenone-ethinyl estradiol (drospirenone-ethinyl estradiol 3 mg-0.02 mg oral tablet)Take 1 tablet by mouth once daily.. fexofenadine (Allergy Relief (Fexofenadine HCl) 180 mg oral tablet)Take 1 tablet by mouth once daily.. hydrOXYzine (hydrOXYzine hydrochloride 50 mg oral tablet)1 tab(s) by mouth every day. lansoprazole (lansoprazole 30 mg oral delayed release capsule)1 cap by mouth two (2) times a day. oxybutynin (oxybutynin 5 mg oral tablet)1 tab(s) by mouth three (3) times a day. Follow Up Follow Up with DANIEL TAN MD When:Within 1-2 days Where:[address] [place] [address]- Additional Information: Please call the office to schedule a hospital follow up appointment. Discharge Diet Regular diet Discharge Activity As tolerated Condition on Discharge Fair and stable Readmission Risk/Palliative Score LACE Score: 9 (06/10/24 08:46:00) Palliative Total Score: 1 (06/10/24 08:47:00) Discharge Disposition Home without services Time Spent 32 minutes Digitally Signed by MILAGRO REBOLLEDO MD on 06/10/2024 03:05 PM [facility] 06-10-2024 Note Discharge Instructions Thank you for allowing [facility] to assist you with your healthcare needs. The following is important discharge information regarding your hospital visit. Your Care Team PHYSICIAN, NONE What to do next Follow Up Appointments Follow Up with DANIEL TAN MD When:Within 1-2 days Where:[address] [place] [address]- Additional Information: Please call the office to schedule a hospital follow up appointment. The Following Activity and Diet Have Been Ordered for You No qualifying data available. No qualifying data available. The Following Equipment Has Been Ordered for You No qualifying data available. The Following Treatments Have Been Ordered for You Discharge Labs No qualifying data available. Discharge Radiology No qualifying data available. Other Therapies No qualifying data available. Post Acute Orders No qualifying data available. Someone Will Contact You Regarding These Home Health Referrals No home referrals have been ordered for you. No one will call you. Allergies Osseo C (Moderate) Zithromax unknown cephalexin Unknown body region chlorpheniramine Seizure dextromethorphan Seizure doxycycline Nausea phenylpropanolamine Seizure pseudoephedrine Seizure Medications Please ask your primary doctor or pharmacist before taking any other medication not listed, including over the counter drugs, herbal medications, vitamins and or supplements as they may interact with your home medications. What How Much When Instructions Last Dose Changed lacosamide (lacosamide 150 mg oral capsule, extended release) 2 cap by mouth Once a day Changed paliperidone (Invega Sustenna 234 mg/ 1.5 mL intramuscular suspension, extended release) 1 Milliliter Intramuscular Once a month Unchanged albuterol (Proventil HFA 90 mcg/ inh inhalation aerosol) 2 puff(s) by inhalation Four (4) times a day Unchanged benztropine (benztropine 1 mg oral tablet) 1 tab(s) by mouth Once a day Unchanged calcium-vitamin D (Calcium 600+D oral tablet) 1 tab(s) by mouth Every day Unchanged citalopram (citalopram 20 mg oral tablet) 1 tab(s) by mouth Once a day Unchanged fluticasone (Flovent HFA 44 mcg/ inh inhalation aerosol) Inhale 1 Puff as instructed twice daily. Unchanged ibuprofen (ibuprofen 600 mg oral tablet) 1 tab(s) by mouth Every 6 hours as needed for as needed for pain Unchanged iloperidone (iloperidone 4 mg oral tablet) 1 tab(s) by mouth Daily at bedtime Unchanged levETIRAcetam 750 Milligram by mouth Two (2) times a day Unchanged montelukast (montelukast 10 mg oral tablet) 1 tab(s) by mouth Once a day Unchanged multivitamin (Multivitamin) 1 tab(s) by mouth Every day Unchanged topiramate (Topamax 200 mg oral tablet) 2 tab(s) by mouth Two (2) times a day Unchanged zonisamide (zonisamide 100 mg oral capsule) 2 cap by mouth Two (2) times a day What How Much When Comments Stop Taking amoxicillin-clavulanate (amoxicillin-clavulanate 875 mg-125 mg oral tablet) 1 tab(s) by mouth Every 12 hours Duration: 7 Days Stop Taking cetirizine (cetirizine 10 mg oral tablet) 1 tab(s) by mouth Once a day Stop Taking drospirenone-ethinyl estradiol (drospirenone-ethinyl estradiol 3 mg-0.02 mg oral tablet) Take 1 tablet by mouth once daily. Stop Taking fexofenadine (Allergy Relief (Fexofenadine HCl) 180 mg oral tablet) Take 1 tablet by mouth once daily. Stop Taking hydrOXYzine (hydrOXYzine hydrochloride 50 mg oral tablet) 1 tab(s) by mouth Every day Stop Taking lansoprazole (lansoprazole 30 mg oral delayed release capsule) 1 cap by mouth Two (2) times a day Stop Taking oxybutynin (oxybutynin 5 mg oral tablet) 1 tab(s) by mouth Three (3) times a day Please take this list to your next doctor s visit. Bring all medications you take, including over the counter medications, herbals and other supplements with you to your doctor s visit. Patients and families are reminded to discard old lists and to update any records with all medication providers or retail pharmacies. Education Materials Acute Pain, Adult Acute pain is a type of sudden pain that may last for just a few days or for as long as six months. It is often related to an illness, injury, or medical procedure. Acute pain may be mild, moderate, or severe. Pain can make it hard for you to do your normal, daily activities. It can cause anxiety and lead to other problems if it is left untreated. Treatment depends on the cause and severity of your pain. Acute pain usually goes away once your injury has healed or you are no longer ill. Follow these instructions at home: Medicines Take tjqb-ibg-rtgqbbn and prescription medicines only as told by your health care provider. Take the lowest dose of medicine for the shortest amount of time needed to relieve the pain. If you are taking prescription pain medicine: ? Do not stop taking the medicine suddenly. Talk to your health care provider about how and when to discontinue prescription medicine. ? Do not take more pills than told by your health care provider even if your pain is severe. ? Do not take other kqfd-ssn-mubfvdf pain medicines in addition to prescription pain medicine unless told by your health care provider. ? Ask your health care provider if the medicine requires you to avoid driving or using heavy machinery. ? Ask your health care provider if the medicine can cause constipation. You may need to take these actions to prevent or treat constipation: ? Drink enough fluid to keep your urine pale yellow. ? Eat foods that are high in fiber, such as beans, whole grains, and fresh fruits and vegetables. ? Take qglt-vii-izuptpo or prescription medicines. ? Limit foods that are high in fat and processed sugars, such as fried or sweet foods. Managing pain, stiffness, and swelling If directed, put ice on the affected area. To do this: Put ice in a plastic bag. Place a towel between your skin and the bag. Leave the ice on for 20 minutes, 2 3 times a day. If directed, apply heat to the affected area as often as told by your health care provider. Use the heat source that your health care provider recommends, such as a moist heat pack or a heating pad. Place a towel between your skin and the heat source. Leave the heat on for 20 30 minutes. Remove the heat if your skin turns bright red. This is especially important if you are unable to feel pain, heat, or cold. You may have a greater risk of getting burned. Activity Rest as told by your health care provider. Return to your normal activities as told by your health care provider. Ask your health care provider what activities are safe for you. General instructions Check your pain level as told by your health care provider. Ask your health care provider if other strategies such as distraction, relaxation, or physical therapies can help your pain. Keep all follow-up visits as told by your health care provider. This is important. Contact a health care provider if: Your pain is not controlled by medicine. Your pain does not improve or gets worse. You have side effects from pain medicines, such as vomiting or confusion. Get help right away if you: Have severe pain. Have trouble breathing. Lose consciousness. Have chest pain or pressure that lasts for more than a few minutes, or if you have other symptoms along with chest pain, including if you: ? Have pain or discomfort in one or both arms, your back, neck, jaw, or stomach. ? Have shortness of breath. ? Break out in a cold sweat. ? Feel nauseous. ? Become light-headed. These symptoms may represent a serious problem that is an emergency. Do not wait to see if the symptoms will go away. Get medical help right away. Call your local emergency services (911 in the [place] Do not drive yourself to the hospital. Summary Acute pain may be mild, moderate, or severe. It usually goes away once your injury has healed or you are no longer ill. Take iinf-row-uonhogu and prescription medicines only as told by your health care provider. Ask your health care provider if the medicine prescribed to you can cause constipation. Contact a health care provider if your pain is not controlled by medicine. This information is not intended to replace advice given to you by your health care provider. Make sure you discuss any questions you have with your health care provider. Document Released: 04/20/2016 Document Revised: 08/22/2019 Document Reviewed: 08/22/2019 [employer] Patient Education 2020 [employer] Additional Information VACCINATE! IT SAVES LIVES! Members of the community who have not yet received the COVID-19 vaccine and would like to receive it can visit one of [facility] vaccine clinics. There are many vaccine clinic locations within the [facility]. For locations and available times, please visit https://gettheshot.coronavirus.o hio.gov/. It is important to note that some COVID mobile vaccine clinics are held outdoors and may be canceled in rainy or stormy conditions. To learn more about pediatric vaccinations (ages 5-11), we invite you to visit the [facility] webpage. [email or web address] To learn more about the COVID-19 vaccine, we invite you to visit the CDC website for a list of frequently asked questions.https://www.cdc.gov/co ronavirus/2019-ncov/vaccines/faq .html [employer] Patient Portal Access Instructions: Stay connected with your healthcare team and access your personal medical information anytime with the [employer] Patient Portal. Please follow the directions below to create your [employer] account: 1.Access the email account you provided upon registration to the hospital/physician office.2.Look for an invitation email from [facility].3.Open the email and access the invitation link: Accept Invitation to [employer].4.Fill in the required sofia to create your account. To access your account, visit [email or web address]. Click the blue button labeled Access Patient Portal and then log in with the username and password that you created in the steps above. You will be able to view your test results, lab results, a summary of your visits, upcoming appointments and more. There is also a convenient messaging option where you can send secure messages to your provider. In addition, you will have the ability to download any documents or summaries to your computer and/or send the information securely to a physician. Remember that your healthcare information is confidential, so carefully consider who you will allow to register on the [facility] Portal for access to your information. You can also access the [facility] Patient Portal on the [employer] connie. Simply click on Patient Portal and then log into your account. If you would like to receive a full copy of your medical records, please contact the [facility] Medical Records Department by calling [phone], Thursday through Thursday between 8 a.m. and 4:30 p.m. HOW TO SAFELY DISPOSE OF PRESCRIPTION MEDICATIONS Please use one of the following methods to safely dispose of your unused medications. 1.Use a drug disposal kit: the drug disposal pouch allows you to safely discard your old and unused drugs. Ask your nurse to give you one when you are discharged.2.Visit a local take-back location: Many local pharmacies and police departments have programs that collect old and unwanted prescription drugs. Call your local pharmacy or go to http://DroidUnit.net.Táximo/8U3Lc9u to find one close to you.3.Make use of household items: Use cat litter or old coffee grounds to dispose medications if other options are not available. Mix your drugs with these household products, seal them in an airtight container and throw it into the garbage. Call [facility]: [phone] to be sure your drugs can be disposed of in this way. Some medicines may require a different approach.4.Never flush your medications down the toilet. IF YOU HAVE BEEN PRESCRIBED AN OPIOID FOR PAIN If you have been prescribed an opioid (such as hydrocodone, oxycodone or morphine), it is critical to understand the possible side effects and risks of opioid pain medications. Even when taken as directed, opioids can have several side effects including: Tolerance, meaning you might need to take more of a medication for the same pain relief. Nausea, vomiting and/or constipation. Sleepiness, dizziness, dry mouth, confusion, depression or itching. Physical dependence, meaning you have withdrawal symptoms when a medication is stopped, can develop within a few days. KNOW YOUR RESPONSIBILITIES It is important to know exactly how much and how often to take the opioid pain medications you are prescribed. Never take opioids in higher amounts or more often than prescribed. Do not combine opioids with alcohol or other drugs that cause drowsiness, such as benzodiazepines, also known as benzos, including diazepam and alprazolam, muscle relaxants or sleep aids. Never sell or share prescription opioids. This is illegal. Store opioids in a secure place and out of reach of others (including children, family, friends and visitors). The last page of this document has been signed and retained as a CHART COPY. Signatures Patient Education Materials Acute Pain, Adult Medication Leaflets My discharge plan and instructions have been reviewed and explained to me and IVETO MELISSA J understand my current condition and have read and understand these discharge instructions. I have received a written copy of the plan/instructions. If I have questions, I am aware that I should contact my doctor. Patient/Log Operations Coordinator Signature: Date/Time: Relationship to Patient: Witness Name/Signature: Date/Time: [facility] 06-10-2024 Note Exam Date Time Procedure Performing Provider Status 06/10/24 2:01 AM Electrocardiogram - EKG - CV CRISTINO ONTIVEROS MD; Auth (Verified) ECG Final Report Sinus rhythm Borderline abnrm T, anterolateral leads Electronic Signature: CRISTINO ONTIVEROS MD 06/10/2024 23:40:47 [id number] Evaluation + Plan noteExtracted from: Title:History and Physical Author:AYDEN REBOLLEDO MD Date:06/09/24 Orders: acetaminophen(Tylenol), 650 mg= 2 tab(s), Oral, q4h, PRN enoxaparin(Lovenox), 40 mg= 0.4 mL, Subcutaneous, qDay glucose(Dextrose 50% IV Push), 25 gram(s)= 50 mL, IV Push, AsDirected, PRN ondansetron(Zofran), 4 mg= 2 mL, IV Push, q4h, PRN oxyCODONE(oxyCODONE 5 mg oral tablet ( IMMEDIATE release )), 5 mg= 1 tab(s), Oral, q4h, PRN Admit to Inpatient, 06/09/24 8:42:00 EST, Level of Care: Stepdown with monitor, Reason for Admission: See History & Physical, Expected Length of Stay: More Than Two Midnights, Diagnosis: Uncontrolled seizures, Constant Order Ambulate, 06/09/24 8:42:00 EST, PRN Order Blood Glucose Call Parameter, 06/09/24 8:42:00 EST, call provider if patient's blood glucose is <70mg/dL, Constant order Blood Glucose Call Parameter, 06/09/24 8:42:00 EST, If patient is NPO for x-ray or surgery and hypoglycemic, call physician for further orders, Constant order Blood Glucose Monitoring Bedside PRN, 06/09/24 8:42:00 EST, PRN Order, For signs/symptoms of hypoglycemia Code Status, 06/09/24 8:42:00 EST, Full Code, Constant Order Communication Order (continuous), 06/09/24 8:42:00 EST, Stat EKG will be obtained in the setting of new, ongoing or worsening chest discomfort/acute coronary syndrome symptoms in all nursing units and/or rhythm change in all monitored units., Constant order Complete Blood Count(CBC), 06/10/24 5:00:00 EST, Next AM Draw (one day only), Blood, Once, Stop date 06/10/24 5:00:00 EST Consult to Physician Group (unknown physician)(Physician Group Consult (unknown physician)), 06/09/24 8:42:00 EST, Neurology, Routine, Controlled seizures Diet Order, 06/09/24 8:42:00 EST, Start Meal: Next meal, Regular, Constant Order, : No, per patient, : No Hemoglobin/Hematocrit - Panel(HH), 06/10/24 5:00:00 EST, Next AM Draw (one day only), Blood, Once, Stop date 06/10/24 5:00:00 EST Intake and Output, 06/09/24 8:42:00 EST, q8h (2p, 10p, 6a) IV Catheter Insertion/Care(Peripheral IV Insertion/Care), 06/09/24 8:42:00 EST, IV Care: q4h, Rotate when clinically indicated & q7day drsg change Prn Adapter, 06/09/24 8:42:00 EST, Constant Order Pulse Oximeter - Intermittent, 06/09/24 8:42:00 EST, q8hRT Telemetry Monitoring, 06/09/24 8:43:24 EST, Constant order Vital Signs, 06/09/24 8:42:00 EST, q8h Assessment: Status epilepticus/uncontrolled seizures Leukocytosis with left shift Lactic acidosis Urinary retention s/p Hung placement Intellectual disability PCOS GERD Morbid obesity FRANSISCO Plan: Continue supportive care Telemetry Seizure precautions Regular diet Ass needed O2, keep sat > 92%. Monitor VS per unit protocol As needed IV Ativan for breakthrough seizures Resume home meds per med rec Consult neurology Monitor labs Replace electrolytes as needed per protocol Encourage out of bed/ambulate as able Bowel regimen VTE PPx Lovenox CM for discharge planning Further recommendations to follow per clinical course [facility] 02-20-2025 Note Date of Service 06/09/2024 Date Read 06/09/2024 EEG Report Indication Assess for epileptiform activity. EEG Description EEG with 10-20 lead placement system. Photic stimulation was performed. The posterior dominant rhythm was 8 Hz synchronous, symmetric, reactive. Photic stimulation produced produced occasional left fronto-temporal epileptiform discharges. Sleep was identified. There is no abnormal background slowing noted. No electrographic seizures noted during the record. Artefact noted during the entire record, study limited by the same. Impression This is a abnormal EEG due to the presence of occasional left fronto-temporal epileptiform discharges. Clinical correlation is advised. No electrographic seizures noted during the record. The Digitally Signed by BRADY ULLOA MD on 06/09/2024 12:49 PM [id number] Neurology Consult note Date of Service 06/09/2024 Referring Physician Hospitalist team History of Present Illness 43-year-old F with PMH history of seizure, intellectual disability, PCOS, FRANSISCO, morbid obesity admitted with breakthrough seizures. Per documentation patient had about 3 seizures, was given Versed, was loaded with Keppra. Patient denies any tongue bite but had urinary incontinence per patient, she was not aware of the event, per patient she had not been taking her seizure medications for the past few days. At present she is alert and oriented x 3, denies any headache, visual disturbances, speechdisturbances no focal deficits, sensory loss or dizziness. BP on admission was 129/96 mmHg. Patientis on Topamax 400 mg twice daily, Vimpat 300 mg twice daily, Zonegran 200 mg twice daily and Oxeero821 mg BID at baseline. Labs glucose 103, sodium 143, potassium 3.8, creatinine 0.7, GFR 111, AST/ALT 25/15, UA trace LE, UDS positive for benzodiazepine. Review of Systems Complete ROS negative except as documented in HPI. Physical Exam Vitals and Measurements T: 36.7 C (Oral) HR: 100 (Apical) RR: 18 BP: 129/96 SpO2: 100% No qualifying data available. General Examination: conscious, alert, oriented, AoA x3 HEENT: normocephalic, pupils BERL Heart: normal S1 S2 Lungs: Bilateral air entry present Abdomen: bowel sounds present Psychiatry: Denies Anxiety, depression or suicidal ideations at present Neuro: Conscious, alert, oriented AoA x3, CN II-XII no Nystagmus, EOMI, pupils BERL, No facial sensory loss, no facial asymmetry, Power 5/5 B/L UE and LE, tone normal all 4 extremities, No tremors, No pronator drift, Reflexes + B/S/T/K/A, Plantars B/L flexor, No cerebellar signs, Romberg s deferred, No sensory loss to light touch/temperature, gait deferred, No frontal release signs. No involuntary movements, No NR, No Kernig s sign, No Brudzinski s sign Lab Results UA Specimen Type: Clean Catch (06/09/24 12:08:00) UA Color: Yellow (06/09/24:08:00) UA Appear: Clear (06/09/24:08:00) UA Spec Grav: 1.010 (06/09/24 12:08:00) UA Glucose: Negative. (06/09/24 12:08:00) UA Bili: Negative. (06/09/24:08:00) UA Ketones: Trace (06/09/24:08:00) UA Blood: Trace (06/09/24:08:00) UA pH: 6.5 (06/09/24:08:00) UA Protein: Negative.1 (06/09/24:08:) UA Urobilinogen: 0.2 (06/09/24:08:00) UA Nitrite: Negative. (06/09/24:08:00) UA Leuk Est: Trace (06/09/24:08:) Glucose Level: 103 mg/dL (06/09/24 10:12:00) Sodium Level: 143 mEq/L (06/09/24 10:12:00) Potassium Level: 3.8 mEq/L (06/09/24 10:12:00) Chloride: 115 mEq/L High (06/09/24 10:12:00) CO2: 19 mEq/L Low (06/09/24:12:00) Electrolyte Balance: 9 mEq/L (06/09/24:12:00) BUN: <5.0 Low (06/09/24:12:00) Creatinine Lvl (s): 0.7 mg/dL (06/09/24 10:12:00) Estimated Glomerular Filtration Rate: 111 ml/min/1.73sqm (06/09/24 10:12:00) BUN/Creatinine Ratio: Unable to Calculate (06/09/24:12:00) Calcium Lvl: 8.9 mg/dL (06/09/24 10:12:00) Total Protein: 7.2 G/dL (06/09/24 10:12:00) Albumin Level: 3.4 G/dL (02/20/25 10:12:00) Globulin: 3.8 G/dL (06/09/24 10:12:00) A/G Ratio: 0.9 ratio (06/09/24 10:12:00) Bili Total: 0.3 mg/dL (06/09/24 10:12:00) Alk Phos: 93 U/L (06/09/24 10:12:00) AST/SGOT: 25 U/L (06/09/24 10:12:00) ALT/SGPT: 15 U/L (06/09/24 10:12:00) Ethanol Level: <10.0 (06/09/24 10:12:00) Salicylate Lvl (ds): <3.0 Low (06/09/24:12) Acetaminophen (ds): 3.8 mcg/mL Low (06/09/24:12:00) Serum Drugs screened: See Below (06/09/24 10:12:) U pH Drug Scrn: 6 (06/09/24 12:08:00) Amphetamine (u): Negative-DSX (06/09/24 12:08:00) Barbiturate (u): Negative-DSX (06/09/24 12:08:00) Cannabinoid (u): Negative-DSX (06/09/24 12:08:00) Cocaine (u): Negative-DSX (06/09/24 12:08:00) Fentanyl (u): Negative-DSX (06/09/24 12:08:00) Benzodiazepine (u): Positive-DSX Abnormal (06/09/24 12:08:00) Methadone (u): Negative-DSX (06/09/24 12:08:00) Opiate (u): Negative-DSX (06/09/24 12:08:00) Oxycodone (u): Negative-DSX (06/09/24 12:08:00) PCP (u): Negative-DSX (06/09/24 12:08:00) Propoxyphene (u): Negative-DSX (06/09/24 12:08:00) Urine Drugs screened: See Below (06/09/24 12:08:00) Assessment/Plan Impressions: Breakthrough seizure Medication noncompliance Plan: -EEG occasional left frontal temporal epileptiform discharges, no seizures -Labs reviewed. -Defer evaluation of infectious etiology to hospitalist team -On Topamax for 400 mg twice daily, Vimpat 300 mg twice daily, Keppra 750 mg twice daily and Zonegran 200 mg twice daily at baseline. Continue home dose -Patient was loaded with Keppra and treated with Versed on admission. -Patient counseled to be compliant with AEDs -Avoid medications like Wellbutrin, Tramadol, isoniazid, clozapine, amphetamines, antibiotics like Meropenem/Cefepime, fluoroquinolones amongst others which can lower seizure threshold -Seizure precautions discussed in detail. Patient counseled not climb on ladders, heights, roofs, patient counseled not to swim alone, patient counseled not to work with sharp objects, SUDEP risks discussed, avoid sleep deprivation, excessive alcohol consumption, avoid using bath tubs and use shower for bathing. -Patient counseled not to drive for 6 months and would need clearance from outpatient neurologist prior to driving. Per patient she does not drive -Hospitalist admission H&P documentation reviewed -ED attending note reviewed -GI/DVT prophylaxis -PT/OT/ST -Fall precautions -Further medical management per medical team -Case discussed with hospitalist medical team -Patient counseled the risks and health hazards of smoking, excessive alcohol intake, marijuana/cocaine/drug abuse and patient counseled not to smoke cigarettes, drink excessive alcohol as well as not to smoke marijuana. Patient understands the same. -Follow up with Neurology in 4-6 weeks as outpatient -Please call with questions if any. -Thank you for allowing us to participate in patients care and management. -All questions were answered -Will sign off at present. Please call with questions if any in the interim. This note has been generated using [employer] dictation software. It may contain incorrect words, punctuation's and spellings that were not noted in the review of the note prior to signing. Problem List/Past Medical History Ongoing Asthma Depression GERD (gastroesophageal reflux disease) Seizures Procedure/Surgical History Cyst Medications Inpatient Ativan, 2 mg= 1 mL, IV Push, q4h, PRN Dextrose 50% IV Push, 25 gram(s)= 50 mL, IV Push, AsDirected, PRN Lovenox, 40 mg= 0.4 mL, Subcutaneous, qDay oxyCODONE 5 mg oral tablet ( IMMEDIATE release ), 5 mg= 1 tab(s), Oral, q4h, PRN Tylenol, 650 mg= 2 tab(s), Oral, q4h, PRN Zofran, 4 mg= 2 mL, IV Push, q4h, PRN Home Allergy Relief (Fexofenadine HCl) 180 mg oral tablet amoxicillin-clavulanate 875 mg-125 mg oral tablet, 1 tab(s), Oral, q12h benztropine 1 mg oral tablet, 2 mg= 2 tab(s), Oral, qDay Calcium 600+D oral tablet, 1 tab(s), Oral, Daily citalopram 20 mg oral tablet, 20 mg= 1 tab(s), Oral, qDay drospirenone-ethinyl estradiol 3 mg-0.02 mg oral tablet Flovent HFA 44 mcg/inh inhalation aerosol hydrOXYzine hydrochloride 50 mg oral tablet, 50 mg= 1 tab(s), Oral, Daily ibuprofen 600 mg oral tablet, 600 mg= 1 tab(s), Oral, q6h, PRN Invega, If strength unknown select sentence below , Oral, qAM Invega Sustenna 234 mg/1.5 mL intramuscular suspension, extended release, 234 mg= 1 mL, Intramuscular, qmonth lansoprazole 30 mg oral delayed release capsule, 30 mg= 1 cap(s), Oral, BID Multivitamin, 1 tab(s), Oral, Daily oxybutynin 5 mg oral tablet, 5 mg= 1 tab(s), Oral, TID Proventil HFA 90 mcg/inh inhalation aerosol, 2 puff(s), Inhalation, QID Topamax 200 mg oral tablet, 400 mg= 2 tab(s), Oral, BID Vimpat 200 mg oral tablet, 400 mg= 2 tab(s), Oral, BID zonisamide 100 mg oral capsule, 200 mg= 2 cap(s), Oral, BID Allergies Osseo C (Moderate) Zithromax unknown Social History Smoking Status - 03/08/2016 Never smoker Alcohol Use: Never., 06/01/2019 Substance Abuse Use: Never., 06/01/2019 Tobacco Nicotine Use: Never (less than 100 in lifetime)., 06/01/2019 Family History Unable to obtain family history Immunizations No qualifying data available. Digitally Signed by BRADY ULLOA MD on 06/09/2024 12:52 PM [facility] [id number] History and physical note Date of Service 06/09/2024 Chief Complaint Uncontrolled seizures History of Present Illness Patient is a 43-year-old female with PMHx intellectual disability, seizure disorder, asthma, PCOS, GERD, morbid obesity, and FRANSISCO, presented to [facility] ER via EMT after experiencing three seizures within 45 minutes at home, without returning to baseline. En route, she was administered 5 mg of IM Versed. The patient reported feeling unwell and stressed for the past few days. She was compliant with her anti-seizure medication and last saw her neurologist less than six months ago. Upon arrival at the ER, her vital signs were within normal limits. She was responsive, following commands, and did not require intubation. In ED she was given normal saline 2L bolus x 1, Keppra 3 g IVPB x 1, and Flexeril 10 mg p.o. x 1. Lab results showed leukocytosis (WBC 15), normal platelet count (292), hemoglobin (14.2), sodium (140), potassium (3.7), and creatinine (1.19). Lactic acid levels were elevated at 7.6, likely due to seizures. Liver enzymes AST and ALT were elevated at 20, and troponin levels were normal (<3). Thyroid function tests showed TSH 7.93, with normal free T4 (0.89) and T3 (2.7). The test and UA were negative. A CT head/brain showed no acute intracranial abnormalities, and an EKG showed sinus rhythm (HR 96 bpm) with no acute ischemic changes and QTc 432. The patient, who was on Topamax, Keppra, Lacosamide, and Zonisamide, received normal saline (2L bolus), Keppra (3 g IVPB), and Flexeril (10 mg p.o.). Consultation with Dr. Whelan, a neuro ICU physician, confirmed that ICU admission was not necessary, and the patient was transferred to [facility] for further evaluation and management. Review of Systems A thorough 14-point review of systems was performed, revealing no abnormalities aside from those documented in the HPI Physical Exam Vitals and Measurements No qualifying data available. General: AAOx3, in no apparent distress. HEENT: Normocephalic/ Atraumatic, normal conjunctiva, moist oral mucosa. Neck: Supple, no lymphadenopathy. Cardiovascular: Normal S1/ S2, normal rate, regular rhythm, no murmurs, rubs or gallops.. Respiratory: Normal respiratory effort, CTA bilaterally, no rales, rhonchi, or wheezing. Abdominal: Soft, nontender, nondistended, normal bowel sounds. Extremities: Normal ROM, no tenderness, swelling or edema, adequate peripheral circulation. Neurological: CN II-XII grossly intact, without focal deficit. Skin: Intact, dry, no rash, or lesions. Lab Results No 36 Hour Lab Data Assessment/Plan Orders: acetaminophen(Tylenol), 650 mg= 2 tab(s), Oral, q4h, PRN enoxaparin(Lovenox), 40 mg= 0.4 mL, Subcutaneous, qDay glucose(Dextrose 50% IV Push), 25 gram(s)= 50 mL, IV Push, AsDirected, PRN ondansetron(Zofran), 4 mg= 2 mL, IV Push, q4h, PRN oxyCODONE(oxyCODONE 5 mg oral tablet ( IMMEDIATE release )), 5 mg= 1 tab(s), Oral, q4h, PRN Admit to Inpatient, 06/09/24 8:42:00 EST, Level of Care: Stepdown with monitor, Reason for Admission: See History & Physical, Expected Length of Stay: More Than Two Midnights, Diagnosis: Uncontrolled seizures, Constant Order Ambulate, 06/09/24 8:42:00 EST, PRN Order Blood Glucose Call Parameter, 06/09/24 8:42:00 EST, call provider if patient's blood glucose is <70mg/dL, Constant order Blood Glucose Call Parameter, 06/09/24 8:42:00 EST, If patient is NPO for x-ray or surgery and hypoglycemic, call physician for further orders, Constant order Blood Glucose Monitoring Bedside PRN, 06/09/24 8:42:00 EST, PRN Order, For signs/symptoms of hypoglycemia Code Status, 06/09/24 8:42:00 EST, Full Code, Constant Order Communication Order (continuous), 06/09/24 8:42:00 EST, Stat EKG will be obtained in the setting ofnew, ongoing or worsening chest discomfort/acute coronary syndrome symptoms in all nursing units and/or rhythm change in all monitored units., Constant order Complete Blood Count(CBC), 06/10/24 5:00:00 EST, Next AM Draw (one day only), Blood, Once, Stop date 06/10/24 5:00:00 EST Consult to Physician Group (unknown physician)(Physician Group Consult (unknown physician)), 06/09/24 8:42:00 EST, Neurology, Routine, Controlled seizures Diet Order, 06/09/24 8:42:00 EST, Start Meal: Next meal, Regular, Constant Order, : No, perpatient, : No Hemoglobin/Hematocrit - Panel(HH), 06/10/24 5:00:00 EST, Next AM Draw (one day only), Blood, Once, Stop date 06/10/24 5:00:00 EST Intake and Output, 06/09/24 8:42:00 EST, q8h (2p, 10p, 6a) IV Catheter Insertion/Care(Peripheral IV Insertion/Care), 06/09/24 8:42:00 EST, IV Care: q4h, Rotate when clinically indicated & q7day drsg change Prn Adapter, 06/09/24 8:42:00 EST, Constant Order Pulse Oximeter - Intermittent, 06/09/24 8:42:00 EST, q8hRT Telemetry Monitoring, 06/09/24 8:43:24 EST, Constant order Vital Signs, 06/09/24 8:42:00 EST, q8h Assessment: Status epilepticus/uncontrolled seizures Leukocytosis with left shift Lactic acidosis Urinary retention s/p Hung placement Intellectual disability PCOS GERD Morbid obesity FRANSISCO Plan: Continue supportive care Telemetry Seizure precautions Regular diet Ass needed O2, keep sat > 92%. Monitor VS per unit protocol As needed IV Ativan for breakthrough seizures Resume home meds per med rec Consult neurology Monitor labs Replace electrolytes as needed per protocol Encourage out of bed/ambulate as able Bowel regimen VTE PPx Lovenox CM for discharge planning Further recommendations to follow per clinical course Problem List/Past Medical History Ongoing Asthma Depression GERD (gastroesophageal reflux disease) Seizures Procedure/Surgical History Cyst Medications Home Medications (18) Active Allergy Relief (Fexofenadine HCl) 180 mg oral tablet amoxicillin-clavulanate 875 mg-125 mg oral tablet 1 tab(s), Oral, q12h benztropine 1 mg oral tablet 2 mg = 2 tab(s), Oral, qDay Calcium 600+D oral tablet 1 tab(s), Oral, Daily citalopram 20 mg oral tablet 20 mg = 1 tab(s), Oral, qDay drospirenone-ethinyl estradiol 3 mg-0.02 mg oral tablet Flovent HFA 44 mcg/inh inhalation aerosol hydrOXYzine hydrochloride 50 mg oral tablet 50 mg = 1 tab(s), Oral, Daily ibuprofen 600 mg oral tablet 600 mg = 1 tab(s), PRN, Oral, q6h Invega If strength unknown select sentence below , Oral, qAM Invega Sustenna 234 mg/1.5 mL intramuscular suspension, extended release 234 mg = 1 mL, Intramuscular, month lansoprazole 30 mg oral delayed release capsule 30 mg = 1 cap(s), Oral, BID Multivitamin 1 tab(s), Oral, Daily oxybutynin 5 mg oral tablet 5 mg = 1 tab(s), Oral, TID Proventil HFA 90 mcg/inh inhalation aerosol 2 puff(s), Inhalation, QID Topamax 200 mg oral tablet 400 mg = 2 tab(s), Oral, BID Vimpat 200 mg oral tablet 400 mg = 2 tab(s), Oral, BID zonisamide 100 mg oral capsule 200 mg = 2 cap(s), Oral, BID Allergies Osseo C (Moderate) Zithromax unknown Social History Smoking Status - 03/08/2016 Never smoker Alcohol Use: Never., 06/01/2019 Substance Abuse Use: Never., 06/01/2019 Tobacco Nicotine Use: Never (less than 100 in lifetime)., 06/01/2019 Family History Unable to obtain family history Immunizations No qualifying data available. Code Status Code Status - Ordered -- 06/09/24 8:42:00 EST, Full Code, Constant Order Digitally Signed by MILAGRO REBOLLEDO MD on 06/09/2024 01:47 PM [id number] Instructions* Patient Instructions* Wilmer Murillo MD - 04/04/2024 2:51 PM EST We will try to obtain a CT scan of your coronary arteries You will need blood work one week prior to your scan You will take the metoprolol the morning of your test [facility] History of Present illness Narrative* Wilmer Murillo MD - 04/04/2024 2:40 PM EST Images from the original note were not included. She always has chest pain [facility] SE[facility]AL CARDIOLOGY Cardiology ([facility]) [address] [id number] OUTPATIENT VISIT DATE 04/04/2024 PRIMARY CARE PHYSICIAN: Daniel Tan [address] [place] [address] REFERRING PHYSICIAN: Cresencio Carrero MD ([facility]) [address] [place] [phone] CHIEF COMPLAINT: Chest pain HISTORY OF PRESENT ILLNESS: Ms. Laws is a 43 year old woman with multiple medical problems she has had a long history of chest pain syndrome. Most recent evaluation was in the fall 2021 at which time she had a normal echocardiogram and a relatively normal nuclear stress test. She presents for routine follow-up. Patient continues to endorse chest pain syndrome. She has chest pain that is intermittent lasting a few minutes to 10 minutes. It happens multiple times a day. It is not increased in frequency since her last office visit. Her chest pain is not affected by exertion. It is not reproducible. There is no associated shortness of breath or diaphoresis. PAST MEDICAL HISTORY Diagnosis Date Abnormal result [...] back STRESS TEST 03/10/2019 STRESS TEST 02/13/2022 SOCIAL HISTORY Social History Tobacco Use Smoking status: Never Smokeless tobacco: Never Substance Use Topics Alcohol use: No Drug use: No FAMILY HISTORY Problem Relation Age of Onset Asthma Mother other (Reflux) Mother other (angina) Mother Heart Father Seizures Father Seizures Brother Heart Sister GA Heart Sister Seizures Sister Young Diabetes Maternal Grandmother Stroke Maternal Grandmother other (hypoglycemia) Maternal Grandfather ALLERGIES: ALLERGIES Allergen Reactions Dayquil Liquicaps [* Other: [...] [Valdecoxib] Rash Cephalexin Intolerance Amoxil is ok MEDICATIONS: benzonatate (TESSALON PERLES) 100 mg capsule Take 2 capsules by mouth three times a day as needed. Dextromethorphan-guaiFENesin (ROBITUSSIN DM) 10-200 mg/5 mL liqd Take 5 mL by mouth every 6 hours as needed. cyclobenzaprine (FLEXERIL) 10 mg tablet Take 1 tablet by mouth three times a day as needed for muscle spasm. fluticasone-salmeterol (ADVAIR DISKUS) 250-50 mcg/dose inhaler Inhale 1 Puff as instructed two times a day. Rinse and gargle mouth after use with water. TYLENOL ARTHRITIS PAIN 650 mg CR tablet Take 1 tablet by mouth every 8 hours as needed. omeprazole (PRILOSEC) 40 mg capsule Take 40 mg by mouth once daily. albuterol HFA (VENTOLIN HFA) 90 mcg/actuation inhaler Inhale 2 Puffs as instructed every 4 hours asneeded for wheezing/shortness of breath. benztropine (COGENTIN) 1 mg tablet TAKE 1 & 1/2 (ONE AND ONE-HALF) TABLETS BY MOUTH IN THE MORNING and ONE TABLET AT BEDTIME metoprolol succinate ER (TOPROL XL) 25 mg 24 hr tablet Take 1 tablet by mouth once [...] daily levETIRAcetam (KEPPRA) 750 mg tablet Take 1,000 mg by mouth two times a day. iloperidone (FANAPT) 4 mg tab Take 1 tablet by mouth daily at bedtime. topiramate (TOPAMAX) 200 mg tablet Take 2 tablets by mouth twice daily. lacosamide (VIMPAT) 200 mg tab Take 2 tablets by mouth twice daily. therapeutic multivitamin ORAL Tab Take one(1) tablet daily. Norethindrone, Contraceptive, (ORTHO MICRONOR) 0.35 mg tablet Take 1 tablet by mouth once daily. (Patient not taking: Reported on 03/18/2024) REVIEW OF SYSTEMS: Review of Systems Constitutional: Negative for chills, fever, malaise/fatigue and weight loss. HENT: Negative for hearing loss and sore throat. Eyes: Negative for blurred vision and double vision. Respiratory: Negative. Cardiovascular: Positive for chest pain. Negative for palpitations, orthopnea, claudication, leg swelling and PND. Gastrointestinal: Negative. Genitourinary: Negative for dysuria, frequency, hematuria and urgency. Musculoskeletal: Negative. Skin: Negative. Neurological: Negative for dizziness, seizures, loss of consciousness, weakness and headaches. Endo/Heme/Allergies: Negative for environmental allergies. Does not bruise/bleed easily. Psychiatric/Behavioral: Negative for depression. PHYSICAL EXAMINATION: BP 112/75 Pulse 83 Wt 303 lb (137.4kg) SpO2 97% LMP 06/17/2023 General: Morbidly obese woman sitting appears comfortable no apparent distress. HEENT: Carotid upstrokes are brisk without bruits no JVD appreciated. Pulmonary: Lungs are clear no rales, wheezes, rhonchi Cardiovascular: Normal S1, S2 with regular rate and rhythm. No murmurs, rubs, or gallops appreciated. CARDIOVASCULAR MEDICINE TESTING: ECG in the office 04/04/2024: Normal sinus rhythm normal axis and intervals. Low voltage anterolateral leads likely secondary to obesity. No significant ST or T wave changes Regadenosine Cardiolite stress 02/13/2022: Rest and stress SPECT current nuclear imaging demonstrate myocardial perfusion changes in the mid to distal anterior, anteroseptal, and anterolateral segments which are somewhat more prominent at rest and stress and also somewhat more prominent at stress versus rest potentially compatible with shifting soft tissue attenuation artifact. However, an element of stress-induced myocardial ischemia cannot necessarily be excluded. Gated Cardiolite study reports an LVEF of 80% Echocardiogram 02/13/2022: Grossly normal left ventricular size, wall motion, and systolic function. Estimated EF 60% Trivial mitral valve insufficiency Trivial tricuspid valve insufficiency Trivial aortic valve insufficiency I have personally reviewed the Electrocardiogram, Echocardiogram, and Stress Test: Nuclear (Non-PET). IMPRESSION: Ms. Laws is a 43 year old woman with extensive medical history including childhood seizures who presents for evaluation of chest pain. It is difficult to evaluate her chest pain syndrome. It does not sound cardiac in nature. She has a few risk factors which include obesity and mild dyslipidemia. PLAN AND RECOMMENDATIONS: 1. Other chest pain - ICD9: 786.59, ICD10: R07.89 (primary diagnosis) Atypical chest pain symptoms. Have tried to obtain coronary artery CTA in the past. Will attempt 1 more time. If patient is unable to complete her CT angiogram will likely need to consider cardiac catheterization just to rule out obstructive coronary disease. - METOPROLOL SUCCINATE ER 25 MG TABLET,EXTENDED RELEASE 24 HR - BASIC METABOLIC PANEL 2. Morbid obesity (HCC) - ICD9: 278.01, ICD10: E66.01 3. Abnormal nuclear cardiac imaging test - ICD9: 794.39, ICD10: R93.1 - METOPROLOL SUCCINATE ER 25 MG TABLET,EXTENDED RELEASE 24 HR - BASIC METABOLIC PANEL 4. Encounter for screening for cardiovascular disorders - ICD9: V81.2, ICD10: Z13.6 - CTA CORONARY W IVCON - BASIC METABOLIC PANEL Wilmer Murillo MD documented in this encounter[facility]12-16-[facility]24 NoteHNO ID: [id number] Author: WILMER MURILLO MD Service: ? Author Type: Physician Type: Progress Notes Filed: 04/04/2024 15:11 Note Text: She always has chest pain [facility] CARDIOLOGY Cardiology ([facility]) [address] [facility] [id number] OUTPATIENT VISIT DATE 04/04/2024 PRIMARY CARE PHYSICIAN: Daniel Tan [address] [place] [address] REFERRING PHYSICIAN: Cresencio Carrero MD ([facility]) [address] [facility] [id number] CHIEF COMPLAINT: Chest pain HISTORY OF PRESENT ILLNESS: Ms. Laws is a 43 year old woman with multiple medical problems she has had a long history of chest pain syndrome. Most recent evaluation was in the fall 2021 at which time she had a normal echocardiogram and a relatively normal nuclear stress test. She presents for routine follow-up. Patient continues to endorse chest pain syndrome. She has chest pain that is intermittent lasting a few minutes to 10 minutes. It happens multiple times a day. It is not increased in frequency since her last office visit. Her chest pain is not affected by exertion. It is not reproducible. There is no associated shortness of breath or diaphoresis. PAST MEDICAL HISTORY Diagnosis Date Abnormal result [...] back STRESS TEST 03/10/2019 STRESS TEST 02/13/2022 SOCIAL HISTORY Social History Tobacco Use Smoking status: Never Smokeless tobacco: Never Substance Use Topics Alcohol use: No Drug use: No FAMILY HISTORY Problem Relation Age of Onset Asthma Mother other (Reflux) Mother other (angina) Mother Heart Father Seizures Father Seizures Brother Heart Sister GA Heart Sister Seizures Sister Young Diabetes Maternal Grandmother Stroke Maternal Grandmother other (hypoglycemia) Maternal Grandfather ALLERGIES: ALLERGIES Allergen Reactions Dayquil Liquicaps [* Other: [...] [Valdecoxib] Rash Cephalexin Intolerance Amoxil is ok MEDICATIONS: benzonatate (TESSALON PERLES) 100 mg capsule Take 2 capsules by mouth three times a day as needed. Dextromethorphan-guaiFENesin (ROBITUSSIN DM) 10-200 mg/5 mL liqd Take 5 mL by mouth every 6 hours as needed. cyclobenzaprine (FLEXERIL) 10 mg tablet Take 1 tablet by mouth three times a day as needed for muscle spasm. fluticasone-salmeterol (ADVAIR DISKUS) 250-50 mcg/dose inhaler Inhale 1 Puff as instructed two times a day. Rinse and gargle mouth after use with water. TYLENOL ARTHRITIS PAIN 650 mg CR tablet Take 1 tablet by mouth every 8 hours as needed. omeprazole (PRILOSEC) 40 mg capsule Take 40 mg by mouth once daily. albuterol HFA (VENTOLIN HFA) 90 mcg/actuation inhaler Inhale 2 Puffs as instructed every 4 hours as needed for wheezing/shortness of breath. benztropine (COGENTIN) 1 mg tablet TAKE 1 AND 1/2 (ONE AND ONE-HALF) TABLETS BY MOUTH IN THE MORNING and ONE TABLET AT BEDTIME metoprolol succinate ER (TOPROL XL) 25 mg 24 hr tablet Take 1 tablet by mouth once [...] daily levETIRAcetam (KEPPRA) 750 mg tablet Take 1,000 mg by mouth two times a day. iloperidone (FANAPT) 4 mg tab Take 1 tablet by mouth daily at bedtime. topiramate (TOPAMAX) 200 mg tablet Take 2 tablets by mouth twice daily. lacosamide (VIMPAT) 200 mg tab Take 2 tablets by mouth twice daily. therapeutic multivitamin ORAL Tab Take one(1) tablet daily. Norethindrone, Contraceptive, (ORTHO MICRONOR) 0.35 mg tablet Take 1 tablet by mouth once daily. (Patient not taking: (more content not included)...[facility] Instructions* Patient Instructions* Brigette Mcmanus APRN.DIXIE - 03/18/2024 4:07 PM EST ASSESSMENT/PLAN: 1. Chronic cough - ICD9: 786.2, ICD10: R05.3 (primary diagnosis) - DEXTROMETHORPHAN-GUAIFENESIN 10 MG-200 MG/5 ML ORAL LIQUID - patient requests antibiotic, her physical exam and history do not support this. - I reprinted AVS from 01/20 visit with primary care with phone number highlighted for patient to call for appointment with pulmonolgy. Brigette Mcmanus APRN.DIXIE documented in this encounterK[facility]11-29-2024 NoteHNO ID: [id number] Author: BRIGETTE MCMANUS APRN.DIXIE Service: ? Author Type: Nurse Practitioner Type: Progress Notes Filed: 03/18/2024 16:07 Note Text: Subjective URI She complains of cough, shortness of breath, sputum production and wheezing. Pertinent negatives include no fever, myalgias or sore throat. Maria Del Rosario Laws is a 43 year old female who presents with cough for past 2-3 months. Was seen by her PCP last month for same complaint. She has been using her inhaler at home. Chest xray was negative and she was prescribed tessalon perles and referred to pulmonology. She has not made this appointment. She states she is 5 or 6 months . Unsure on dates and does not have SURVEILLANCE SYSTEMS ANALYST I just going to let my angels watch over me. When asked how her was diagnosed she states I went and got a test. She is asked to give a urine sample today to confirm this and she refuses. Review of Systems Constitutional: Negative for chills and fever. HENT: Negative for congestion and sore throat. Respiratory: Positive for cough, sputum production, shortness of breath and wheezing. Cardiovascular: Negative. Musculoskeletal: Negative for back pain and myalgias. BP 116/72 Pulse 103 Temp 37.1 ?C (98.7 ?F) (Left Tympanic) Resp 20 Wt (!) 137 kg (302 lb 0.5 oz) LMP 06/17/2023 (Approximate) SpO2 99% BMI 54.19 kg/m? PAST MEDICAL HISTORY Diagnosis Date Abnormal result [...] 03/10/2019 STRESS TEST 02/13/2022 ALLERGIES Dayquil Liquicaps [Lxbwanuyr-Hz-Iz-Acetaminophen], Arithromycin [Azithromycin], Doxycycline, Latex, Mucinex Dm [Dextromethorphan-Guaifenesin], Risperdal [Risperidone], Strawberries, Tamiflu [Oseltamivir Phosphate], Topiramate, Bextra [Valdecoxib], and Cephalexin MEDICATIONS cyclobenzaprine (FLEXERIL) 10 mg tablet Take 1 tablet by mouth three times a day as needed for muscle spasm. fluticasone-salmeterol (ADVAIR DISKUS) 250-50 mcg/dose inhaler Inhale 1 Puff as instructed two times a day. Rinse and gargle mouth after use with water. TYLENOL ARTHRITIS PAIN 650 mg CR tablet Take 1 tablet by mouth every 8 hours as needed. omeprazole (PRILOSEC) 40 mg capsule Take 40 mg by mouth once daily. benztropine (COGENTIN) 1 mg tablet TAKE 1 AND 1/2 (ONE AND ONE-HALF) TABLETS BY MOUTH IN THE MORNING and ONE TABLET AT BEDTIME metoprolol succinate ER (TOPROL XL) 25 mg 24 hr tablet Take 1 tablet by mouth once [...] daily levETIRAcetam (KEPPRA) 750 mg tablet Take 1,000 mg by mouth two times a day. iloperidone (FANAPT) 4 mg tab Take 1 tablet by mouth daily at bedtime. topiramate (TOPAMAX) 200 mg tablet Take 2 tablets by mouth twice daily. lacosamide (VIMPAT) 200 mg tab Take 2 tablets by mouth twice daily. therapeutic multivitamin ORAL Tab Take one(1) tablet daily. benzonatate (TESSALON PERLES) 100 mg capsule Take 2 capsules by mouth three times a day as needed. Dextromethorphan-guaiFENesin (ROBITUSSIN DM) 10-200 mg/5 mL liqd Take 5 mL by mouth every 6 hours as needed. albuterol HFA (VENTOLIN HFA) 90 mcg/actuation inhaler Inhale 2 Puffs as instructed every 4 hours as needed for wheezing/shortness of breath. Norethindrone, Contraceptive, (ORTHO MICRONOR) 0.35 mg tablet Take 1 tablet by mouth once daily. (Patient not taking: Reported on 03/18/2024) FAMILY HISTORY Problem Relation Age of Onset Asthma Mother other (Reflux) Mother other (angina) Mother Heart Father Seizures Father Seizures Brother Heart Sister GA Heart Sister Seizures Sister Young Diabetes Maternal Grandmother Stroke Maternal Grandmother other (hypoglycemia) Maternal Grandfather Social History Tobacco Use Smoking status: Never Smokeless tobacco: Never Substance Use Topics Alcohol use: No Drug use: No Objective Physical Exam Vitals and nursing note reviewed. Constitutional: Appearance: Normal appearance. Cardiovascular: Rate and Rhythm: Normal rate and regular rhythm. Heart sounds: Normal heart sounds. Pulmonar (more content not included)...[facility] History of Present illness Narrative* Brigette Mcmanus APRN.MILLER HEAD ASSISTANT WET PROCESS - 03/18/2024 3:57 PM EST Subjective URI She complains of cough, shortness of breath, sputum production and wheezing. Pertinent negatives include no fever, myalgias or sore throat. Maria Del Rosario Laws is a 43 year old female who presents with cough for past 2-3 months. Was seen by her PCP last month for same complaint. She has been using her inhaler at home. Chest xray was negative and she was prescribed tessalon perles and referred to pulmonology. She has not made this appointment. She states she is 5 or 6 months . Unsure on dates and does not have SURVEILLANCE SYSTEMS ANALYST I just going to let my angels watch over me. When asked how her was diagnosed she states I went and got a test. She is asked to give a urine sample today to confirm this and she refuses. Review of Systems Constitutional: Negative for chills and fever. HENT: Negative for congestion and sore throat. Respiratory: Positive for cough, sputum production, shortness of breath and wheezing. Cardiovascular: Negative. Musculoskeletal: Negative for back pain and myalgias. BP 116/72 Pulse 103 Temp 37.1 C (98.7 F) (Left Tympanic) Resp 20 Wt (!) 137 kg (302 lb 0.5 oz) LMP 06/17/2023 (Approximate) SpO2 99% BMI 54.19 kg/m PAST MEDICAL HISTORY Diagnosis Date Abnormal result [...] 03/10/2019 STRESS TEST 02/13/2022 ALLERGIES Dayquil Liquicaps [Lcdhmvsmn-So-Yh-Acetaminophen], Arithromycin [Azithromycin], Doxycycline, Latex, Mucinex Dm [Dextromethorphan-Guaifenesin], Risperdal [Risperidone], Strawberries, Tamiflu[Oseltamivir Phosphate], Topiramate, Bextra [Valdecoxib], and Cephalexin MEDICATIONS cyclobenzaprine (FLEXERIL) 10 mg tablet Take 1 tablet by mouth three times a day as needed for muscle spasm. fluticasone-salmeterol (ADVAIR DISKUS) 250-50 mcg/dose inhaler Inhale 1 Puff as instructed two times a day. Rinse and gargle mouth after use with water. TYLENOL ARTHRITIS PAIN 650 mg CR tablet Take 1 tablet by mouth every 8 hours as needed. omeprazole (PRILOSEC) 40 mg capsule Take 40 mg by mouth once daily. benztropine (COGENTIN) 1 mg tablet TAKE 1 & 1/2 (ONE AND ONE-HALF) TABLETS BY MOUTH IN THE MORNING and ONE TABLET AT BEDTIME metoprolol succinate ER (TOPROL XL) 25 mg 24 hr tablet Take 1 tablet by mouth once [...] daily levETIRAcetam (KEPPRA) 750 mg tablet Take 1,000 mg by mouth two times a day. iloperidone (FANAPT) 4 mg tab Take 1 tablet by mouth daily at bedtime. topiramate (TOPAMAX) 200 mg tablet Take 2 tablets by mouth twice daily. lacosamide (VIMPAT) 200 mg tab Take 2 tablets by mouth twice daily. therapeutic multivitamin ORAL Tab Take one(1) tablet daily. benzonatate (TESSALON PERLES) 100 mg capsule Take 2 capsules by mouth three times a day as needed. Dextromethorphan-guaiFENesin (ROBITUSSIN DM) 10-200 mg/5 mL liqd Take 5 mL by mouth every 6 hours as needed. albuterol HFA (VENTOLIN HFA) 90 mcg/actuation inhaler Inhale 2 Puffs as instructed every 4 hours asneeded for wheezing/shortness of breath. Norethindrone, Contraceptive, (ORTHO MICRONOR) 0.35 mg tablet Take 1 tablet by mouth once daily. (Patient not taking: Reported on 03/18/2024) FAMILY HISTORY Problem Relation Age of Onset Asthma Mother other (Reflux) Mother other (angina) Mother Heart Father Seizures Father Seizures Brother Heart Sister GA Heart Sister Seizures Sister Young Diabetes Maternal Grandmother Stroke Maternal Grandmother other (hypoglycemia) Maternal Grandfather Social History Tobacco Use Smoking status: Never Smokeless tobacco: Never Substance Use Topics Alcohol use: No Drug use: No Objective Physical Exam Vitals and nursing note reviewed. Constitutional: Appearance: Normal appearance. Cardiovascular: Rate and Rhythm: Normal rate and regular rhythm. Heart sounds: Normal heart sounds. Pulmonary: Effort: Pulmonary effort is normal. No respiratory distress. Breath sounds: Normal breath sounds. No wheezing or rales. Skin: General: Skin is warm and dry. Findings: No rash. Neurological: Mental Status: She is alert. ASSESSMENT/PLAN: 1. Chronic cough - ICD9: 786.2, ICD10: R05.3 (primary diagnosis) - DEXTROMETHORPHAN-GUAIFENESIN 10 MG-200 MG/5 ML ORAL LIQUID - patient requests antibiotic, her physical exam and history do not support this. - I reprinted AVS from 01/20 visit with primary care with phone number highlighted for patient to call for appointment with pulmonolgy. Brigette Mcmanus APRN.MILLER HEAD ASSISTANT WET PROCESS documented in this encounterK[facility]11-29-2024 Telephone encounter Note * Telephone Encounter - Linda Skinner LPN - 03/18/2024 12:50 PM EST Pt. having urinary and or uterine bleeding for 1 month. No appointments with PCP available today.Advised to go to urgent care or Er. [facility] Work Phone: [phone]) 175-673711-29-2024 Miscellaneous Notes* Telephone Encounter - Linda Skinner LPN - 03/18/2024 12:50 PM EST Pt. having urinary and or uterine bleeding for 1 month. No appointments with PCP available today.Advised to go to urgent care or Er. documented in this encounterK[facility]10-31-2024 Telephone encounter Note * Telephone Encounter - Gabriella Cano RN - 02/18/2024 11:13 AM EDT Called to triage. Spoke to mother (Kennedi) who reports she has already scheduled an appointment with gynecology for tomorrow for severe vaginal bleeding and nothing further is needed with Dr. Tan. Forwarded to DIVISION SUPERVISOR. Closing encounter. Answer Assessment - Initial Assessment Questions Mother declines further triage. Reports that an appointment has already been made with gynecology. Gabriella Cano RN Protocols used: Vaginal Bleeding - [id number]-NC [facility]10-31-2024 Miscellaneous Notes* Telephone Encounter - Gabriella Cano RN - 02/18/2024 11:13 AM EDT Called to triage. Spoke to mother (Kennedi) who reports she has already scheduled an appointment with gynecology for tomorrow for severe vaginal bleeding and nothing further is needed with Dr. Tan. Forwarded to DIVISION SUPERVISOR. Closing encounter. Answer Assessment - Initial Assessment Questions Mother declines further triage. Reports that an appointment has already been made with gynecology. Gabriella Cano RN Protocols used: Vaginal Bleeding - [id number] * Telephone Encounter - Mariana Gamez MA - 02/18/2024 10:41 AM EDT Added to triage schedule. Pt may need to speak with her DIVISION SUPERVISOR. Pt is scheduled with DIVISION SUPERVISOR tomorrow 02/19/24. Mariana Gamez MA * Telephone Encounter - Ranjana Lal - 02/18/2024 9:03 AM EDT Maria Del Rosario is a patient of Daniel Tan MD today Mother Kennedi is calling with concern regardingshe stated her daughter is having severe vaginal bleeding. Please call her today. Patient has been identified by name and birthdate. Duration of symptoms: NA Person calling: Mother Call patient at: on home [phone] (home) Was an appointment scheduled: No Closing statement: Symptom Call: Thank you for calling [facility], your call is very important. A nurse will call in approximately 2-4 hours during business hours. If this is an emergency, please contact 911. Ranjana Patel documented in this encounterK[facility]10-31-2024 Telephone encounter Note * Telephone Encounter - Mariana Gamez MA - 02/18/2024 10:41 AM EDT Added to triage schedule. Pt may need to speak with her DIVISION SUPERVISOR. Pt is scheduled with DIVISION SUPERVISOR tomorrow 02/19/24. Mariana Gamez MA [facility]10-31-2024 Telephone encounter Note* Telephone Encounter - Ranjana Lal - 02/18/2024 9:03 AM EDT Maria Del Rosario is a patient of Daniel Tan MD today Mother Kennedi is calling with concern regardingshe stated her daughter is having severe vaginal bleeding. Please call her today. Patient has been identified by name and birthdate. Duration of symptoms: NA Person calling: Mother Call patient at: on home [phone] (home) Was an appointment scheduled: No Closing statement: Symptom Call: Thank you for calling [facility], your call is very important. A nurse will call in approximately 2-4 hours during business hours. If this is an emergency, please contact 911. Ranjana Patel [facility]10-08-2024 Telephone encounter Note* Telephone Encounter - Monik Hernandez LPN - 01/26/2024 10:47 AM EDT Pt notified of results & message from provider, pt voiced understanding. Monik Hernandez LPN [facility]10-08-2024 Miscellaneous Notes* Telephone Encounter - Monik Hernandez LPN - 01/26/2024 10:47 AM EDT Pt notified of results & message from provider, pt voiced understanding. Monik Hernandez LPN * Telephone Encounter - Emilee Brady RN - 01/26/2024 8:52 AM EDT Called and left a voicemail for the Patient to call back and ask for a nurse to receive the providers message. Emilee Brady RN * Telephone Encounter - Idalia Lewis APRN.CNP - 01/25/2024 4:52 PM EDT Can you please call the patient and family and let them know that I reviewed her knee x-ray results. X-ray showed arthritis. No fractures or dislocation noted. I would recommend that she continue supportive care at home. May use Tylenol as needed. May consider using a knee sleeve for extra support. Please let me know if they have any questions. Thank you. Idalia Lewis APRN.MILLER HEAD ASSISTANT WET PROCESS documented in this encounterK[facility]10-08-2024 Telephone encounter Note * Telephone Encounter - Emilee Brady RN - 01/26/2024 8:52 AM EDT Called and left a voicemail for the Patient to call back and ask for a nurse to receive the providers message. Emilee Brady RN [facility]10-07-2024 Telephone encounter Note* Telephone Encounter - Idalia Lewis APRN.CNP - 01/25/2024 4:52 PM EDT Can you please call the patient and family and let them know that I reviewed her knee x-ray results. X-ray showed arthritis. No fractures or dislocation noted. I would recommend that she continue supportive care at home. May use Tylenol as needed. May consider using a knee sleeve for extra support. Please let me know if they have any questions. Thank you. Idalia Lewis APRN.CNP [facility]10-04-2024 Telephone encounter Note* Telephone Encounter - Idalia Lewis APRN.CNP - 01/22/2024 9:26 AM EDT Prescription was refilled earlier this morning per Rx refill request. See chart review. Idalia Lewis APRN.CNP [facility]10-04-2024 Miscellaneous Notes* Telephone Encounter - Idalia Lewis APRN.CNP - 01/22/2024 9:26 AM EDT Prescription was refilled earlier this morning per Rx refill request. See chart review. Idalia Lewis APRN.CNP * Telephone Encounter - Sabiha Carter RN - 01/22/2024 9:10 AM EDT patients mother and patient returned call and notified of information. They are asking for an rx of tessalon milan be called into [facility] (only needs called back if rx cannot be called in) Patients mother was schedule to PSS to schedule with pulmonology. * Telephone Encounter - Giovana Contreras LPN - 01/22/2024 8:50 AM EDT TC to pt. LM to call office, ask for triage nurse to get results. Giovana Contreras LPN * Telephone Encounter - Idalia Lewis APRN.CNP - 01/22/2024 6:54 AM EDT Can you please call the patient and family and let them know that her chest x- ray was normal. No pneumonia noted. I have placed a consult for pulmonology as well as spirometry testing to ensure that her asthma is not getting worse. They may schedule appointment for pulmonology anytime. I would likeher to continue supportive care at home and complete spirometry testing. Please let me know if they have any questions. Thank you. Idalia Lewis APRN.DIXIE documented in this encounterK[facility]10-04-2024 Telephone encounter Note * Telephone Encounter - Sabiha Carter RN - 01/22/2024 9:10 AM EDT patients mother and patient returned call and notified of information. They are asking for an rx of tessalon milan be called into [facility] (only needs called back if rx cannot be called in) Patients mother was schedule to PSS to schedule with pulmonology. [facility]10-04-[facility] Telephone encounter Note* Telephone Encounter - Giovana Contreras LPN - 01/22/2024 8:50 AM EDT TC to pt. LM to call office, ask for triage nurse to get results. Giovana Contreras LPN [facility]10-04-2024 Telephone encounter Note* Telephone Encounter - Idalia Lewis APRN.DIXIE - 01/22/2024 6:54 AM EDT Can you please call the patient and family and let them know that her chest x- ray was normal. No pneumonia noted. I have placed a consult for pulmonology as well as spirometry testing to ensure that her asthma is not getting worse. They may schedule appointment for pulmonology anytime. I would likeher to continue supportive care at home and complete spirometry testing. Please let me know if they have any questions. Thank you. Idalia Lewis APRN.MILLER HEAD ASSISTANT WET PROCESS [facility]10-03-2024 Telephone encounter Note* Telephone Encounter - Kitty Estrada RN - 01/21/2024 7:00 PM EDT The patient has been identified by name and date of : Yes Caregiver verified no other encounters exist for this prescription request: Yes Caregiver confirmed with patient/requestor that no other refills are due, in the near future, with this provider at this time: Yes The last office visit in the department: 01/21/2024 Does the patient have a future office visit with this provider/department: Yes 03/28/2024 Requested Prescriptions Pending Prescriptions Disp Refills benzonatate (TESSALON PERLES) 100 mg capsule 30 capsule 0 Sig: Take 2 capsules by mouth three times a day as needed. Kitty Estarda RN January 21, 2024 7:00 PM [facility]10-03-2024 Miscellaneous Notes* Telephone Encounter - Kitty Estrada RN - 01/21/2024 7:00 PM EDT The patient has been identified by name and date of : Yes Caregiver verified no other encounters exist for this prescription request: Yes Caregiver confirmed with patient/requestor that no other refills are due, in the near future, with this provider at this time: Yes The last office visit in the department: 01/21/2024 Does the patient have a future office visit with this provider/department: Yes 03/28/2024 Requested Prescriptions Pending Prescriptions Disp Refills benzonatate (TESSALON PERLES) 100 mg capsule 30 capsule 0 Sig: Take 2 capsules by mouth three times a day as needed. Kitty Estrada RN January 21, 2024 7:00 PM documented in this encounterK[facility]10-03-2024 History of Present illness Narrative* Antonette Foote RT(R) - 01/21/2024 1:50 PM EDT Radiology Service Progress Note PATIENT NAME: Maria Del Rosario Laws DATE OF SERVICE: January 21, 2024 TIME: 1:59 PM PATIENT IDENTITY VERIFICATION COMPLETED USING TWO (2) IDENTIFIERS: Name and Date of confirmedby patient verbally. FALL SCREENING: Has the patient had 2 falls in the last year or 1 fall with injury or currently using an Ambulatory Assistive Device (Walker, Cane, Wheelchair, Crutches, etc.)? No PATIENT GENDER DATA: Female. status: : No status: NO. PATIENT RELEVANT IMPLANT DATA REVIEWED: Yes PATIENT PRESENTS WITH AN IMPLANTABLE OR ATTACHED STAIN MAKER: No RADIOLOGY DEPARTMENT: General X-ray: Exam(s) Completed: Chest X-Ray Lower Extremity X-Ray(s): Knee, AP / Lat / Tunne / Merchant Right PERIPHERAL IV DATA: Not applicable SIGNED BY: RT Mitch(Karie) January 21, 2024 1:59 PM documented in this encounterK[facility]10-03-2024 NoteHNO ID: [id number] Author: ANTONETTE FOOTE RT(Karie) Service: ? Author Type: Director Financial Systems Type: Progress Notes Filed: 01/21/2024 14:59 Note Text: Radiology Service Progress Note PATIENT NAME: Maria Del Rosario Laws DATE OF SERVICE: January 21, 2024 TIME: 1:59 PM PATIENT IDENTITY VERIFICATION COMPLETED USING TWO (2) IDENTIFIERS: Name and Date of confirmed by patient verbally. FALL SCREENING: Has the patient had 2 falls in the last year or 1 fall with injury or currently using an Ambulatory Assistive Device (Walker, Cane, Wheelchair, Crutches, etc.)? No PATIENT GENDER DATA: Female. status: : No status: NO. PATIENT RELEVANT IMPLANT DATA REVIEWED: Yes PATIENT PRESENTS WITH AN IMPLANTABLE OR ATTACHED STAIN MAKER: No RADIOLOGY DEPARTMENT: General X-ray: Exam(s) Completed: Chest X-Ray Lower Extremity X-Ray(s): Knee, AP / Lat / Tunne / Merchant Right PERIPHERAL IV DATA: Not applicable SIGNED BY: RT Mitch(R) January 21, 2024 1:59 [facility]10-03-2024 Instructions* Patient Instructions* Idalia Lewis APRN.CNP - 01/21/2024 1:33 PM EDT Get xray completed today Recommend completing spirometry to evaluate asthma/cough Consult placed for pulmonology to discuss chronic cough and asthma. Continue to use tessalon perles as needed Stay well hydrated. documented in this encounterK[facility]10-03-2024 History of Present illness Narrative* Idalia Lewis APRN.CNP - 01/21/2024 1:00 PM EDT This is a 43 year old female who presents today with: Patient presents with: Acute Visit: bronchitis HISTORY OF PRESENT ILLNESS: Maria Del Rosario Laws is a 43 year old female. Patient presents with: Acute Visit: bronchitis Here in the office for concerns for bronchitis. Has been seen mutliple times for the same symptoms.Treated with 2 rounds of antibiotics. Chest xray has been negative in September and October. Has an active consult for ENT due to chronic sinus symptoms, has yet to schedule. Refers that cough and SOB has been on going since November. Using tessalon perles as needed. History of asthma. Not currently following with pulmonology. Using albuterol as needed. Right knee pain, fell down sisters steps a couple years ago. Refers that she Is still having pain. Not currently taking any OTC analgesia. PAST MEDICAL HISTORY: PAST MEDICAL HISTORY Diagnosis [...] 03/10/2019 STRESS TEST 02/13/2022 ALLERGIES Dayquil Liquicaps [Qfvretamn-Fk-Dg-Acetaminophen], Arithromycin [Azithromycin], Doxycycline, Latex, Mucinex Dm [Dextromethorphan-Guaifenesin], Risperdal [Risperidone], Strawberries, Tamiflu[Oseltamivir Phosphate], Topiramate, Bextra [Valdecoxib], and Cephalexin MEDICATIONS Current Outpatient Medications Medication Sig benzonatate (TESSALON PERLES) 100 mg capsule Take 2 capsules by mouth three times a day as needed. cyclobenzaprine (FLEXERIL) 10 mg tablet Take 1 tablet by mouth three times a day as needed for muscle spasm. fluticasone-salmeterol (ADVAIR DISKUS) 250-50 mcg/dose inhaler Inhale 1 Puff as instructed two times a day. Rinse and gargle mouth after use with water. TYLENOL ARTHRITIS PAIN 650 mg CR tablet Take 1 tablet by mouth every 8 hours as needed. omeprazole (PRILOSEC) 40 mg capsule Take 40 mg by mouth once daily. albuterol HFA (VENTOLIN HFA) 90 mcg/actuation inhaler Inhale 2 Puffs as instructed every 4 hours asneeded for wheezing/shortness of breath. benztropine (COGENTIN) 1 mg tablet TAKE 1 & 1/2 (ONE AND ONE-HALF) TABLETS BY MOUTH IN THE MORNING and ONE TABLET AT BEDTIME metoprolol succinate ER (TOPROL XL) 25 mg 24 hr tablet Take 1 tablet by mouth once [...] daily levETIRAcetam (KEPPRA) 750 mg tablet Take 1,000 mg by mouth two times a day. Norethindrone, Contraceptive, (ORTHO MICRONOR) 0.35 mg tablet [...] Father Seizures Father Seizures Brother Heart Sister GA Heart Sister Seizures Sister Young Diabetes Maternal [...] and significant neck swelling RESPIRATORY: + Cough and SOB CARDIOVASCULAR: Negative for chest pain, leg swelling, orthopnea, or palpitations GI: No nausea, vomiting, or diarrhea/constipation. No hematochezia/melena. No heartburn or reflux symptoms. : No history of dysuria, frequency or incontinence MUSCULOSKELETAL: + Knee Pain SKIN: Negative for lesions, rash, and itching ENDOCRINE: Negative for cold or heat intolerance, polyuria, polydipsia and goiter NEURO: No history of headaches, syncope, paralysis, seizures or tremors MOOD: Negative for depression, anxiety, or suicidal ideation. EXAM: BP 128/87 Pulse 85 Temp 37.3 C (99.1 F) Resp 16 Wt (!) 141 kg (310 lb 13.6 oz) LMP 06/17/2023 (Approximate) SpO2 97% BMI 55.77 kg/m PHYSICAL EXAM: General Appearance: Well appearing, alert, in no acute distress, well-hydrated, well nourished. Skin: Skin color, texture, turgor normal, no suspicious rashes or lesions. Head: Normocephalic, no masses, lesions, tenderness or abnormalities. Eyes: Anicteric sclera. Pupils are equally round and reactive to light. Extraocular movements are intact. Ears: External ears normal, canals clear. TM's dull. Nose/Sinuses: Nares normal, septum midline, mucosa normal, [...] or cyanosis. Good capillary refill. Musculoskeletal: Right knee full ROM, non-tender, no crepitus noted, negative valgus/varus. Peripheral Pulses: Normal, Capillary refill <2secs, strong peripheral pulses, Pulses palpable. Neurologic: Gait normal. Reflexes normal and symmetric. Sensation grossly intact.. ASSESSMENT/PLAN: 1. URI, acute - ICD9: 465.9, ICD10: J06.9 (primary diagnosis) - Discussed viral etiology and rationale for treatment. - Symptomatic treatment with prn analgesia - Supportive care with fluids and rest - Patient concerned for possible pneumonia, will get xray for further evaluation. - XR CHEST 2V FRONTAL/LAT 2. Moderate persistent asthma with acute exacerbation - ICD9: 493.92, ICD10: J45.41 - Mild persistent asthma worse - Continue current medications - Avoidance of triggers recommended - Recommend completing spirometry for further evaluation and have a consult with pulmonology. - CONSULT TO PULMONARY MEDICINE - XR CHEST 2V FRONTAL/LAT 3. Chronic cough - ICD9: 786.2, ICD10: R05.3 - Same plan as #2. 4. Acute pain of right knee - ICD9: 719.46, ICD10: M25.561 - XR KNEE LIMITED 2V AP/LAT RIGHT Follow-up pending test results or sooner as needed. Discussed treatment plan and patient voices understanding. Patient's questions answered appropriately. Medications and potential side effects were discussed and patient voices understanding. Idalia Lewis APRN.DIXIE This note was partially generated using Spy[employer] Lynk voice recognition system. Note was reviewed for accuracy. There may be minor misspellings or grammar miscues with [employer]k voice recognition. documented in this encounterK[facility]10-03-2024 NoteHNO ID: [id number] Author: IDALIA LEWIS APRN.DIXIE Service: ? Author Type: Nurse Practitioner Type: Progress Notes Filed: 01/21/2024 15:07 Note Text: This is a 43 year old female who presents today with: Patient presents with: Acute Visit: bronchitis HISTORY OF PRESENT ILLNESS: Maria Del Rosario Laws is a 43 year old female. Patient presents with: Acute Visit: bronchitis Here in the office for concerns for bronchitis. Has been seen mutliple times for the same symptoms. Treated with 2 rounds of antibiotics. Chest xray has been negative in September and October. Has an active consult for ENT due to chronic sinus symptoms, has yet to schedule. Refers that cough and SOB has been on going since November. Using tessalon perles as needed. History of asthma. Not currently following with pulmonology. Using albuterol as needed. Right knee pain, fell down sisters steps a couple years ago. Refers that she Is still having pain. Not currently taking any OTC analgesia. PAST MEDICAL HISTORY: PAST MEDICAL HISTORY Diagnosis [...] 03/10/2019 STRESS TEST 02/13/2022 ALLERGIES Dayquil Liquicaps [Pktzqlcqj-Be-Kg-Acetaminophen], Arithromycin [Azithromycin], Doxycycline, Latex, Mucinex Dm [Dextromethorphan-Guaifenesin], Risperdal [Risperidone], Strawberries, Tamiflu [Oseltamivir Phosphate], Topiramate, Bextra [Valdecoxib], and Cephalexin MEDICATIONS Current Outpatient Medications Medication Sig benzonatate (TESSALON PERLES) 100 mg capsule Take 2 capsules by mouth three times a day as needed. cyclobenzaprine (FLEXERIL) 10 mg tablet Take 1 tablet by mouth three times a day as needed for muscle spasm. fluticasone-salmeterol (ADVAIR DISKUS) 250-50 mcg/dose inhaler Inhale 1 Puff as instructed two times a day. Rinse and gargle mouth after use with water. TYLENOL ARTHRITIS PAIN 650 mg CR tablet Take 1 tablet by mouth every 8 hours as needed. omeprazole (PRILOSEC) 40 mg capsule Take 40 mg by mouth once daily. albuterol HFA (VENTOLIN HFA) 90 mcg/actuation inhaler Inhale 2 Puffs as instructed every 4 hours as needed for wheezing/shortness of breath. benztropine (COGENTIN) 1 mg tablet TAKE 1 AND 1/2 (ONE AND ONE-HALF) TABLETS BY MOUTH IN THE MORNING and ONE TABLET AT BEDTIME metoprolol succinate ER (TOPROL XL) 25 mg 24 hr tablet Take 1 tablet by mouth once [...] daily levETIRAcetam (KEPPRA) 750 mg tablet Take 1,000 mg by mouth two times a day. Norethindrone, Contraceptive, (ORTHO MICRONOR) 0.35 mg tablet [...] Father Seizures Father Seizures Brother Heart Sister GA Heart Sister Seizures Sister Young Diabetes Maternal [...] and significant neck swelling RESPIRATORY: + Cough and SOB CARDIOVASCULAR: Negative for chest pain, leg swelling, orthopnea, or palpitations GI: No nausea, vomiting, or diarrhea/constipation. No hematochezia/melena. No heartburn or reflux symptoms. : No history of dysuria, frequency or incontinence MUSCULOSKELETAL: + Knee Pain SKIN: Negative for lesions, rash, and itching ENDOCRINE: Negative for cold or heat intolerance, polyuria, polydipsia and (more content not included)...[facility]10-03-2024 Telephone encounter Note* Telephone Encounter - Tala Garcia RN - 01/21/2024 8:12 AM EDT Patient's mother calling in with medical question regarding patient. Information provided. Tala Garcia RN [facility]10-03-2024 Miscellaneous Notes* Telephone Encounter - Tala Garcia RN - 01/21/2024 8:12 AM EDT Patient's mother calling in with medical question regarding patient. Information provided. Tala Garcia RN documented in this encounterKet[facility]09-23-2024 Telephone encounter Note * Telephone Encounter - Giovana Contreras LPN - 01/11/2024 12:40 PM EDT Patient mother notified of results, and recommendation. verbalizes understanding of instructions. Giovana Contreras LPN [facility]09-23-2024 Miscellaneous Notes* Telephone Encounter - Giovana Contreras LPN - 01/11/2024 12:40 PM EDT Patient mother notified of results, and recommendation. verbalizes understanding of instructions. Giovana Contreras LPN * Telephone Encounter - Idalia Lewis APRN.CNP - 01/11/2024 12:01 PM EDT Can you please call the patient's mother back and let her know that patient was treated with Augmentin at the end of November which is a penicillin-based antibiotic and recently just treated with cefdinir. If she is still having ongoing symptoms she will need to have a follow-up with a provider for further evaluation. She also has an active consult for ear nose and throat which was placed previously due chronic sinus symptoms. Thank you. Idalia Lewis APRN.MILLER HEAD ASSISTANT WET PROCESS * Telephone Encounter - Sheree Roberson LPN - 01/11/2024 11:18 AM EDT Pt had OV 12/31/23 and prescribed cefdinir. Mother reports pt finished the atb and is not doing any better. Mother reports pt has nasal and chest congestion, coughing up green mucus, trouble breathing when laying down, wheezing at night even though propped up on pillows. Mother reports pt does not have a fever or pain in chest/back when coughing or breathing. Mother reports that amoxicillin is what works best for pt. Mother is requesting a rx for amoxicillin and Tessalon Perles. Please review and advise. Sheree Roberson LPN documented in this encounterK[facility]24 Telephone encounter Note * Telephone Encounter - Idalia Lewis APRN.DIXIE - 01/11/2024 12:01 PM EDT Can you please call the patient's mother back and let her know that patient was treated with Augmentin at the end of November which is a penicillin-based antibiotic and recently just treated with cefdinir. If she is still having ongoing symptoms she will need to have a follow-up with a provider for further evaluation. She also has an active consult for ear nose and throat which was placed previously due chronic sinus symptoms. Thank you. Idalia Lewis APRN.MILLER HEAD ASSISTANT WET PROCESS [facility]09-23-2024 NoteHNO ID: [id number] Author: KISHA BUTTERFIELD MA Service: ? Author Type: Belt Loop Cutter Type: Progress Notes Filed: 01/11/2024 11:45 Note Text: POPULATION HEALTH NAVIGATION OUTREACH Action/FYI Spoke with patient and scheduled wellness on 03/28 AND BREAST CANCER SCREENING on 02/09. HCC gaps Patient declined flu and my chart. Reason for Outreach Care Gap/HCC or Scheduling Wellness Visits Care Gaps due: Medicare Annual Wellness Visit Breast Cancer Screening Flu Vaccine Patient Contacted: Spoke to patient/parent/or legal guardian Patient identified by name and : Yes Care Gap/HCC/Scheduling Wellness actions taken: Patient scheduled/pended orders: Medicare Annual Wellness Visit Breast Cancer Screening 02/10/2024 in [facility] with SCREEN MAMMO [facility] - screening mammogram w/ RAPHAEL z12.31 03/28/[address] [facility] with DANIEL TAN - Medicare wellness, HCC gaps closure, Address HM due 04/04/2024 in [facility] with WILMER MURILLO - 6 mo follow up HCC related Navigation Signature: Kisha Butterfield MA January 11, 2024 11:41 [facility]09-23-2024 History of Present illness Narrative* Kisha Butterfield MA - 01/11/2024 11:41 AM EDT POPULATION HEALTH NAVIGATION OUTREACH Action/FYI Spoke with patient and scheduled wellness on 03/28 & BREAST CANCER SCREENING on 02/09. HCC gaps Patient declined flu and my chart. Reason for Outreach Care Gap/HCC or Scheduling Wellness Visits Care Gaps due: Medicare Annual Wellness Visit Breast Cancer Screening Flu Vaccine Patient Contacted: Spoke to patient/parent/or legal guardian Patient identified by name and : Yes Care Gap/HCC/Scheduling Wellness actions taken: Patient scheduled/pended orders: Medicare Annual Wellness Visit Breast Cancer Screening 02/10/2024 in [facility]MO [facility] with [facility]CREEN MAMMO [facility] - screening mammogram w/ RAPHAEL z12.31 03/28/[address] [facility] with DANIEL TAN - Medicare wellness, HCC gaps closure, Address HM due 04/04/2024 in [facility] with WILMER MURILLO - 6 mo follow up HCC related Navigation Signature: Kisha Butterfield MA January 11, 2024 11:41 AM documented in this encounterK[facility]09-23-2024 Telephone encounter Note * Telephone Encounter - Sheree Roberson LPN - 01/11/2024 11:18 AM EDT Pt had OV 12/31/23 and prescribed cefdinir. Mother reports pt finished the atb and is not doing any better. Mother reports pt has nasal and chest congestion, coughing up green mucus, trouble breathing when laying down, wheezing at night even though propped up on pillows. Mother reports pt does not have a fever or pain in chest/back when coughing or breathing. Mother reports that amoxicillin is what works best for pt. Mother is requesting a rx for amoxicillin and Tessalon Perles. Please review and advise. Sheree Roberson LPN T [facility]09-23-2024 NotePatient Outreach (NETNAV) MARIA DEL ROSARIO LAWS ([id number]) 1980 F Date Time Provider Department 01/11/24 KISHA BUTTERFIELD During your visit today, we recorded the following information about you: Kisha Butterfield MA 01/11/2024 11:45 AM Signed POPULATION HEALTH NAVIGATION OUTREACH Action/FYI Spoke with patient and scheduled wellness on 03/28 AND BREAST CANCER SCREENING on 02/09. HCC gaps Patient declined flu and my chart. Reason for Outreach Care Gap/HCC or Scheduling Wellness Visits Care Gaps due: Medicare Annual Wellness Visit Breast Cancer Screening Flu Vaccine Patient Contacted: Spoke to patient/parent/or legal guardian Patient identified by name and : Yes Care Gap/HCC/Scheduling Wellness actions taken: Patient scheduled/pended orders: Medicare Annual Wellness Visit Breast Cancer Screening 02/10/2024 in [facility]MO [facility] with SCREEN MAMMO [facility] - screening mammogram w/ RAPHAEL z12.31 03/28/2024 in FAMP [facility] with DANIEL TAN - Medicare wellness, HCC gaps closure, Address HM due 04/04/2024 in [facility] with WILMER MURILLO - 6 mo follow up HCC related Navigation Signature: Kisha Butterfield MA January 11, 2024 11:41 AM Allergies As of Date: 01/11/2024 Noted Allergy Reaction DAYQUIL LIQUICAPS (XGEGPAZUP-[id number]*09/27/2012 14 - Other: See Comments Comments: Caused Seizure ARITHROMYCIN (AZITHROMYCIN) 10/27/2012 8 - GI Upset Comments: Z-Pack DOXYCYCLINE 07/22/2008 8 - GI Upset LATEX 08/21/2005 2 - Rash MUCINEX DM (DEXTROMETHORPHAN-GUAI*02/12/2009 5 - Intolerance Comments: gran mal seizure. [...] Intolerance Comments: Amoxil is ok Date Reviewed: 12/31/2023 Reviewed by: Giovana Contreras LPN - Fully Assessed Reason for Visit: Population Health Navigation Outreach [3910] Cmt: C, AWV, Care gaps, HCC, Brianna PCSA Prescriptions as of 01/11/2024 - benzonatate (TESSALON PERLES) 100 mg capsule Take 2 capsules by mouth three times a day as needed. - cyclobenzaprine (FLEXERIL) 10 mg tablet Take 1 tablet by mouth three times a day as needed for muscle spasm. - fluticasone-salmeterol (ADVAIR DISKUS) 250-50 mcg/dose inhaler Inhale 1 Puff as instructed two times a day. Rinse and gargle mouth after use with water. - TYLENOL ARTHRITIS PAIN 650 mg CR tablet Take 1 tablet by mouth every 8 hours as needed. - omeprazole (PRILOSEC) 40 mg capsule Take 40 mg by mouth once daily. - albuterol HFA (VENTOLIN HFA) 90 mcg/actuation inhaler Inhale 2 Puffs as instructed every 4 hours as needed for wheezing/shortness of breath. - benztropine (COGENTIN) 1 mg tablet TAKE 1 AND 1/2 (ONE AND ONE-HALF) TABLETS BY MOUTH IN THE MORNING and ONE TABLET AT BEDTIME - metoprolol succinate ER (TOPROL XL) 25 mg 24 hr tablet Take 1 tablet by mouth once daily. - montelukast (SINGULAIR) 10 mg tablet Take 1 tablet by mouth daily at bedtime. - cetirizine (ZYRTEC) 10 mg tablet Take 1 tablet by mouth once daily. - citalopram (CELEXA) 20 mg tablet 20 mg once daily. 1 tablet daily - zonisamide (ZONEGRAN) 100 mg capsule Take 100 mg by mouth once daily. 2 capsules by mouth twice daily - levETIRAcetam (KEPPRA) 750 mg tablet Take 1,000 mg by mouth two times a day. - Norethindrone, Contraceptive, (ORTHO MICRONOR) 0.35 mg tablet Take 1 tablet by mouth once daily. - iloperidone (FANAPT) 4 mg tab [...] Ma [birth year]18 Taking Vimpat, Zonegran, and Albuterol. 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 Giovaan Contreras LPN [facility]09-18-2024 Miscellaneous Notes* Telephone Encounter - Giovana Contreras LPN - 01/06/2024 12:07 PM EDT Patient mother notified of Rx unable to order., verbalizes understanding of instructions. Giovana Contreras LPN * Telephone Encounter - Idalia Lewis APRN.CNP - 01/06/2024 12:03 PM EDT Can you please call the patient's mother back and let her know that I attempted to order the calcium with vitamin D, it is showing that is not covered by insurance. Idalia Lewis APRN.DIXIE * Telephone Encounter - Giovana Contreras LPN - 01/06/2024 9:58 AM EDT Patient mother notified of results, verbalizes understanding of instructions. Mother would like a Rx for calcium/Vit D3 to be sent to [facility]. Giovana Contreras LPN * Telephone Encounter - Idalia Lewis APRN.CNP - 01/06/2024 9:40 AM EDT Can you please call the patient and let her know that I reviewed her x-ray results. X-ray of lumbar spine shows degenerative changes which is consistent with arthritis. No fractures noted. She may continue with Tylenol arthritis as needed for pain. May apply ice and heat to the areaand gentle stretching. Thank you. Idalia Lewis APRN.CNP documented in this encounterK[facility]09-18-2024 Telephone encounter Note * Telephone Encounter - Idalia Lewis APRN.CNP - 01/06/2024 12:03 PM EDT Can you please call the patient's mother back and let her know that I attempted to order the calcium with vitamin D, it is showing that is not covered by insurance. Idalia Lewis APRN.CNP [facility]09-18-2024 Telephone encounter Note* Telephone Encounter - Giovana Contreras LPN - 01/06/2024 9:58 AM EDT Patient mother notified of results, verbalizes understanding of instructions. Mother would like a Rx for calcium/Vit D3 to be sent to [facility]. Giovana Contreras LPN [facility]09-18-2024 Telephone encounter Note* Telephone Encounter - Idalia Lewis APRN.CNP - 01/06/2024 9:40 AM EDT Can you please call the patient and let her know that I reviewed her x-ray results. X-ray of lumbar spine shows degenerative changes which is consistent with arthritis. No fractures noted. She may continue with Tylenol arthritis as needed for pain. May apply ice and heat to the areaand gentle stretching. Thank you. Idalia Lewis APRN.CNP [facility]09-12-2024 History of Present illness Narrative* Cliff Estrada, RT(R) - 12/31/2023 11:00 AM EDT Radiology Service Progress Note PATIENT NAME: Maria Del Rosario Laws DATE OF SERVICE: December 31, 2023 TIME: 10:52 AM PATIENT IDENTITY VERIFICATION COMPLETED USING TWO (2) IDENTIFIERS: Name and Date of confirmedby patient verbally. FALL SCREENING: Has the patient had 2 falls in the last year or 1 fall with injury or currently using an Ambulatory Assistive Device (Walker, Cane, Wheelchair, Crutches, etc.)? No PATIENT GENDER DATA: Female. status: : No status: NO. PATIENT RELEVANT IMPLANT DATA REVIEWED: Yes PATIENT PRESENTS WITH AN IMPLANTABLE OR ATTACHED STAIN MAKER: No RADIOLOGY DEPARTMENT: General X-ray: Exam(s) Completed: Spine X-Ray(s): Lumbar AP / LAT / L5-S1 PERIPHERAL IV DATA: Not applicable SIGNED BY: DAVID Henao) December 31, 2023 10:52 AM documented in this encounterKettering [facility]09-12-2024 NoteHNO ID: [id number] Author: CLIFF ESTRADA RT (R) Service: Radiology Author Type: Technologist Type: Progress Notes Filed: 12/31/2023 11:05 Note Text: Radiology Service Progress Note PATIENT NAME: Maria Del Rosario Laws DATE OF SERVICE: December 31, 2023 TIME: 10:52 AM PATIENT IDENTITY VERIFICATION COMPLETED USING TWO (2) IDENTIFIERS: Name and Date of confirmed by patient verbally. FALL SCREENING: Has the patient had 2 falls in the last year or 1 fall with injury or currently using an Ambulatory Assistive Device (Walker, Cane, Wheelchair, Crutches, etc.)? No PATIENT GENDER DATA: Female. status: : No status: NO. PATIENT RELEVANT IMPLANT DATA REVIEWED: Yes PATIENT PRESENTS WITH AN IMPLANTABLE OR ATTACHED STAIN MAKER: No RADIOLOGY DEPARTMENT: General X-ray: Exam(s) Completed: Spine X-Ray(s): Lumbar AP / LAT / L5-S1 PERIPHERAL IV DATA: Not applicable SIGNED BY: DAVID Henao) December 31, 2023 10:52 [facility]09-12-2024 Instructions* Patient Instructions* Idalia Lewis APRN.CNP - 12/31/2023 10:44 AM EDT Start Omnicef, take with food May use tessalon perles as needed for cough Stay well hydrated Get xray of back completed. May apply ice to the area May continue with Tylenol as needed for pain Follow up pending test results. documented in this encounterK[facility]09-12-2024 History of Present illness Narrative* Idalia Lewis APRN.CNP - 12/31/2023 10:20 AM EDT This is a 43 year old female who presents today with: Patient presents with: Acute Visit: fell HISTORY OF PRESENT ILLNESS: Maria Del Rosario Laws is a 43 year old female. Patient presents with: Acute Visit: fell Here in the office for illness and pain after a fall. Refers that she has noticed increase in coughing. Coughing up brown mucus. Not currently taking any OTC medication at this time. History of asthma, has not been taking advair as prescribed. Increase in wheezing. Feels like she has been having temp at home. Was treated with augmentin in late November, was seen in ER, PCP sent in antibiotic due toon going symptoms. Antibiotics did not help. Fall: pain after a fall. Refers that fall was not caused by a seizure. Patient was coherent. Complaining of ongoing back pain. Not currently taking anything for pain. No loss of bowel/bladder or saddle anesthesia. 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 No date: Closed fracture of unspecified bone Comment: right arm No date: Closed fracture of unspecified bone Comment: left ankle No date: Esophageal reflux No date: Myalgia and myositis, unspecified No date: Other forms of dyspnea 09/26/2011: Seizure disorder (HCC) No date: SOB (shortness of breath) No date: Unspecified asthma, with status asthmaticus PAST SURGICAL HISTORY 06/16/2020: CHEST X-RAY 06/16/2020: CHEST X-RAY 02/13/2022: ECHO Comment: EF60% 09/30/2019: EKG No date: PAST SURGICAL HISTORY OF Comment: cyst removal from lower back 03/10/2019: STRESS TEST 02/13/2022: STRESS TEST ALLERGIES Dayquil Liquicaps [Igorkatfl-Xe-Ez-Acetaminophen], Arithromycin [Azithromycin], Doxycycline, Latex, Mucinex Dm [Dextromethorphan-Guaifenesin], Risperdal [Risperidone], Strawberries, Tamiflu[Oseltamivir Phosphate], Topiramate, Bextra [Valdecoxib], and Cephalexin MEDICATIONS Current Outpatient Medications Medication Sig cyclobenzaprine (FLEXERIL) 10 mg tablet Take 1 tablet by mouth three times a day as needed for muscle spasm. benzonatate (TESSALON PERLES) 100 mg capsule Take 2 capsules by mouth three times a day as needed. fluticasone-salmeterol (ADVAIR DISKUS) 250-50 mcg/dose inhaler Inhale 1 Puff as instructed two times a day. Rinse and gargle mouth after use with water. TYLENOL ARTHRITIS PAIN 650 mg CR tablet Take 1 tablet by mouth every 8 hours as needed. omeprazole (PRILOSEC) 40 mg capsule Take 40 mg by mouth once daily. albuterol HFA (VENTOLIN HFA) 90 mcg/actuation inhaler Inhale 2 Puffs as instructed every 4 hours asneeded for wheezing/shortness of breath. benztropine (COGENTIN) 1 mg tablet TAKE 1 & 1/2 (ONE AND ONE-HALF) TABLETS BY MOUTH IN THE MORNING and ONE TABLET AT BEDTIME metoprolol succinate ER (TOPROL XL) 25 mg 24 hr tablet Take 1 tablet by mouth once [...] daily levETIRAcetam (KEPPRA) 750 mg tablet Take 1,000 mg by mouth two times a day. Norethindrone, Contraceptive, (ORTHO MICRONOR) 0.35 mg tablet [...] Father Seizures Father Seizures Brother Heart Sister GA Heart Sister Seizures Sister Young Diabetes Maternal [...] pain and significant neck swelling RESPIRATORY: + Cough/Wheezing CARDIOVASCULAR: Negative for chest pain, leg swelling, orthopnea, or palpitations GI: No nausea, vomiting, or diarrhea/constipation. No hematochezia/melena. No heartburn or reflux symptoms. : No history of dysuria, frequency or incontinence MUSCULOSKELETAL: + Back Pain SKIN: Negative for lesions, rash, and itching ENDOCRINE: Negative for cold or heat intolerance, polyuria, polydipsia and goiter NEURO: No history of headaches, syncope, paralysis, seizures or tremors MOOD: Negative for depression, anxiety, or suicidal ideation. EXAM: BP 120/80 Pulse 80 Temp 37.4 C (99.4 F) Resp 16 Wt (!) 143 kg (315 lb 4.1 oz) LMP 06/17/2023 (Approximate) SpO2 97% BMI 56.56 kg/m PHYSICAL EXAM: General Appearance: Well appearing, alert, in no acute distress, well-hydrated, well nourished.. Skin: Skin color, texture, turgor normal, no suspicious rashes or lesions. Head: Normocephalic, no masses, lesions, tenderness or abnormalities. Eyes: Anicteric sclera. Extraocular movements are intact. Ears: External ears normal, canals clear. TM's pearly [place]. Nose/Sinuses: Positive findings: mucosa erythematous and swollen, frontal and maxillary sinus tenderness. Oropharynx: Lips, mucosa, and tongue normal, teeth and gums normal, oropharynx normal. Neck: Supple, no adenopathy; thyroid symmetric, normal size, no bruits. Lungs: Lungs clear to auscultation. No wheezing, rhonchi, rales. Cough. Heart: RRR without murmur, gallop, or rubs. No ectopy. Extremities: No deformities, edema, skin discoloration, clubbing or cyanosis. Good capillary refill. Musculoskeletal: Spine non-tender, paraspinal tenderness right side, reduced ROM, no swelling or color change noted. Peripheral Pulses: Normal, Capillary refill <2secs, strong peripheral pulses, Pulses palpable. Neurologic: Gait normal. Reflexes normal and symmetric. Sensation grossly intact. ASSESSMENT/PLAN: 1. Fall, initial encounter - ICD9: E888.9, ICD10: W19.XXXA (primary diagnosis) - Still having on going pain since fall. 2. Acute midline low back pain without sciatica - ICD9: 724.2, ICD10: M54.50 - Get xray completed - Continue supportive care at home - Apply ice to the area, may use Tylenol as needed for pain. - XR LUMBAR GENERAL 3V AP/LAT/L5-S1 - XR LUMBAR GENERAL 3V AP/LAT/L5-S1 3. Sinobronchitis - ICD9: 473.9, 490, ICD10: J32.9, J40 - Will begin treatment with as per antibiotic as written, see orders - Supportive care with plenty of fluids, rest, and analgesia prn. - CEFDINIR 300 MG CAPSULE - BENZONATATE 100 MG CAPSULE Follow up pending test results or sooner as needed. Discussed treatment plan and patient voices understanding. Patient's questions answered appropriately. Medications and potential side effects were discussed and patient voices understanding. Idalia Lewis APRN.DIXIE This note was partially generated using [facility] recognition system. Note was reviewed for accuracy. There may be minor misspellings or grammar miscues with [employer] voice recognition. documented in this encounterKettering [facility]09-12-2024 NoteHNO ID: [id number] Author: IDALIA LEWIS APRN.MILLER HEAD ASSISTANT WET PROCESS Service: ? Author Type: Nurse Practitioner Type: Progress Notes Filed: 12/31/2023 11:31 Note Text: This is a 43 year old female who presents today with: Patient presents with: Acute Visit: fell HISTORY OF PRESENT ILLNESS: Maria Del Rosario Laws is a 43 year old female. Patient presents with: Acute Visit: fell Here in the office for illness and pain after a fall. Refers that she has noticed increase in coughing. Coughing up brown mucus. Not currently taking any OTC medication at this time. History of asthma, has not been taking advair as prescribed. Increase in wheezing. Feels like she has been having temp at home. Was treated with augmentin in late November, was seen in ER, PCP sent in antibiotic due to on going symptoms. Antibiotics did not help. Fall: pain after a fall. Refers that fall was not caused by a seizure. Patient was coherent. Complaining of ongoing back pain. Not currently taking anything for pain. No loss of bowel/bladder or saddle anesthesia. 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 No date: Closed fracture of unspecified bone Comment: right arm No date: Closed fracture of unspecified bone Comment: left ankle No date: Esophageal reflux No date: Myalgia and myositis, unspecified No date: Other forms of dyspnea 09/26/2011: Seizure disorder (HCC) No date: SOB (shortness of breath) No date: Unspecified asthma, with status asthmaticus PAST SURGICAL HISTORY 06/16/2020: CHEST X-RAY 06/16/2020: CHEST X-RAY 02/13/2022: ECHO Comment: EF60% 09/30/2019: EKG No date: PAST SURGICAL HISTORY OF Comment: cyst removal from lower back 03/10/2019: STRESS TEST 02/13/2022: STRESS TEST ALLERGIES Dayquil Liquicaps [Oxwsrtvgp-La-Rx-Acetaminophen], Arithromycin [Azithromycin], Doxycycline, Latex, Mucinex Dm [Dextromethorphan-Guaifenesin], Risperdal [Risperidone], Strawberries, Tamiflu [Oseltamivir Phosphate], Topiramate, Bextra [Valdecoxib], and Cephalexin MEDICATIONS Current Outpatient Medications Medication Sig cyclobenzaprine (FLEXERIL) 10 mg tablet Take 1 tablet by mouth three times a day as needed for muscle spasm. benzonatate (TESSALON PERLES) 100 mg capsule Take 2 capsules by mouth three times a day as needed. fluticasone-salmeterol (ADVAIR DISKUS) 250-50 mcg/dose inhaler Inhale 1 Puff as instructed two times a day. Rinse and gargle mouth after use with water. TYLENOL ARTHRITIS PAIN 650 mg CR tablet Take 1 tablet by mouth every 8 hours as needed. omeprazole (PRILOSEC) 40 mg capsule Take 40 mg by mouth once daily. albuterol HFA (VENTOLIN HFA) 90 mcg/actuation inhaler Inhale 2 Puffs as instructed every 4 hours as needed for wheezing/shortness of breath. benztropine (COGENTIN) 1 mg tablet TAKE 1 AND 1/2 (ONE AND ONE-HALF) TABLETS BY MOUTH IN THE MORNING and ONE TABLET AT BEDTIME metoprolol succinate ER (TOPROL XL) 25 mg 24 hr tablet Take 1 tablet by mouth once [...] daily levETIRAcetam (KEPPRA) 750 mg tablet Take 1,000 mg by mouth two times a day. Norethindrone, Contraceptive, (ORTHO MICRONOR) 0.35 mg tablet [...] Father Seizures Father Seizures Brother Heart Sister GA Heart Sister Seizures Sister Young Diabetes Maternal [...] pain and significant neck swelling RESPIRATORY: + Cough/Wheezing CARDIOVASCULAR: Negative for chest pain, leg swelling, orthopnea, or palpitations GI: No nausea, vomiting, or diarrhea/constipation. No hematochezia/melena. No heartburn or reflux symptoms. : No history of dysuria, frequency or (more content not included)...[facility]09-11-2024 Telephone encounter Note* Telephone Encounter - Moni Cordoba RN - 12/30/2023 2:55 PM EDT Mother phoned to report patient fell last night onto her left side. Reports patient was alert and got up right away. States she knows it wasn't a seizure, because patient stayed alert. Reports today patient's left side hurts. No bruises or injuries that can be seen. No swelling that can be seen. Patient is up walking, and going places. Patient reports her left hip, leg, knee, and back hurt. Advised mother maybe patient should be seen in ER. Mother states patient will not go to ER. Scheduled appt with Slip Caster for tomorrow. [facility]09-[facility] Miscellaneous Notes* Telephone Encounter - Moni Cordoba RN - 12/30/2023 2:55 PM EDT Mother phoned to report patient fell last night onto her left side. Reports patient was alert and got up right away. States she knows it wasn't a seizure, because patient stayed alert. Reports today patient's left side hurts. No bruises or injuries that can be seen. No swelling that can be seen. Patient is up walking, and going places. Patient reports her left hip, leg, knee, and back hurt. Advised mother maybe patient should be seen in ER. Mother states patient will not go to ER. Scheduled appt with [facility] for tomorrow. [facility] in [facility] Telephone encounter Note * Telephone Encounter - Ángela Villa LPN - 12/16/2023 2:07 PM EDT Left a detailed message that medications were sent to the pharmacy on 12-10-23. Ángela Villa LPN [facility]08-28[facility]24 Miscellaneous Notes* Telephone Encounter - Ángela Villa LPN - 12/16/2023 2:07 PM EDT Left a detailed message that medications were sent to the pharmacy on 12-10-23. Ángela Villa LPN * Telephone Encounter - Chantel Townsend MA - 12/10/2023 4:43 PM EDT Called and left message on patients voicemail to return call to the office and ask to speak with a FM triage nurse. Chantel Townsend MA * Telephone Encounter - Daniel Tan MD - 12/10/2023 11:45 AM EDT OK to refill as ordered OK for Augmentin as ordered Daniel Tan MD * Telephone Encounter - Tigre Logan LPN - 12/10/2023 11:01 AM EDT Pt calls requesting refills. Pt also advises that she is out of the Tessalon Perles. Pt is also wanting an atb for her bronchitis. States she has been coughing up green stuff. Pt states she was seen in the ER at [facility] 12/07 for this and they didn't give her anything. Advised her we don't give pt's atbwithout being seen first. She advises that she can't make it up for an appointment. Please call pt to advise is rx for atb can be sent in. Tigre Logan LPN documented in this encounterK[facility]08-[facility]-2024 Telephone encounter Note * Telephone Encounter - Chantel Townsend MA - 12/10/2023 4:43 PM EDT Called and left message on patients voicemail to return call to the office and ask to speak with a FM triage nurse. Chantel Townsend MA [facility]08-22-[facility]24 Telephone encounter Note* Telephone Encounter - Daniel Tan MD - 12/10/2023 11:45 AM EDT OK to refill as ordered OK for Augmentin as ordered Daniel Tan MD [facility]08-22-[facility] Telephone encounter Note* Telephone Encounter - Tigre Logan LPN - 12/10/2023 11:01 AM EDT Pt calls requesting refills. Pt also advises that she is out of the Tessalon Perles. Pt is also wanting an atb for her bronchitis. States she has been coughing up green stuff. Pt states she was seen in the ER at [facility] 12/07 for this and they didn't give her anything. Advised her we don't give pt's atbwithout being seen first. She advises that she can't make it up for an appointment. Please call pt to advise is rx for atb can be sent in. Tigre Logan LPN [facility]08-07-[facility] Telephone encounter Note* Telephone Encounter - Idalia Lewis APRN.CNP - 11/25/2023 6:24 PM EDT The following approved medication requests have been transmitted electronically. Requested Prescriptions Pending Prescriptions Disp Refills benzonatate (TESSALON PERLES) 100 mg capsule 30 capsule 0 Sig: Take 2 capsules by mouth three times a day as needed. Idalia Lewis APRN.DIXIE [facility]08-07-2024 Miscellaneous Notes* Telephone Encounter - Idalia Lewis APRN.CNP - 11/25/2023 6:24 PM EDT The following approved medication requests have been transmitted electronically. Requested Prescriptions Pending Prescriptions Disp Refills benzonatate (TESSALON PERLES) 100 mg capsule 30 capsule 0 Sig: Take 2 capsules by mouth three times a day as needed. Idalia Lewis APRN.CNP * Telephone Encounter - Kitty Estrada RN - 11/25/2023 5:50 PM EDT The patient has been identified by name and date of : Yes Caregiver verified no other encounters exist for this prescription request: Yes Caregiver confirmed with patient/requestor that no other refills are due, in the near future, with this provider at this time: Yes The last office visit in the department: 11/10/2023 Does the patient have a future office visit with this provider/department: Yes Visit date not found Requested Prescriptions Pending Prescriptions Disp Refills benzonatate (TESSALON PERLES) 100 mg capsule 30 capsule 0 Sig: Take 2 capsules by mouth three times a day as needed. Kitty Estrada RN November 25, 2023 5:50 PM documented in this encounterK[facility]24 Telephone encounter Note * Telephone Encounter - Kitty Estrada RN - 11/25/2023 5:50 PM EDT The patient has been identified by name and date of : Yes Caregiver verified no other encounters exist for this prescription request: Yes Caregiver confirmed with patient/requestor that no other refills are due, in the near future, with this provider at this time: Yes The last office visit in the department: 11/10/2023 Does the patient have a future office visit with this provider/department: Yes Visit date not found Requested Prescriptions Pending Prescriptions Disp Refills benzonatate (TESSALON PERLES) 100 mg capsule 30 capsule 0 Sig: Take 2 capsules by mouth three times a day as needed. Kitty Estrada RN November 25, 2023 5:50 PM [facility] Telephone encounter Note* Telephone Encounter - Monik Hernandez LPN - 11/17/2023 3:10 PM EDT Pt was seen in the office 11/10/23. Monik Hernandez LPN [facility]-30-[facility] Miscellaneous Notes* Telephone Encounter - Monik Hernandez LPN - 11/17/2023 3:10 PM EDT Pt was seen in the office 11/10/23. Monik Hernandez LPN * Telephone Encounter - Monik Hernandez LPN - 11/04/2023 2:43 PM EDT Pt was given an Rx for amox for a dental infection on 10/20/23. Pt's mother Kennedi states pt finishedthe antibiotic but is still having pain, not as bad as before she took the antibiotic. Her dentist appt is not until 11/11/23 so Kennedi is asking if pt can have a refill for the amox to last until herappt. She is also requesting Prescription Refill Information The patient has been identified by name and date of : Yes Caregiver verified no other encounters exist for this prescription request: Yes Caregiver confirmed with patient/requestor that no other refills are due, in the near future, with this provider at this time: Yes The last office visit in the department: 10/09/23 Does the patient have a future office visit with this provider/department: No Requested Prescriptions Pending Prescriptions Disp Refills benzonatate (TESSALON PERLE) 100 mg capsule 30 capsule 0 Sig: Take 1 capsule by mouth three times a day as needed. Monik Hernandez LPN November 04, 2023 2:46 PM documented in this encounterK[facility]07-25-2024 Telephone encounter Note * Telephone Encounter - Giovana Arias RN - 11/12/2023 12:14 PM EDT Pt's mother Kennedi calling in wanting to know why her daughter was put on Prednisone yesterday as she knows Prednisone can weaken the bones. Explained to pt that it helps with breathing issues and being on it short term should not be a problem. Mother appeared to be fine with this information. [facility] Miscellaneous Notes* Telephone Encounter - Giovana Arias RN - 11/12/2023 12:14 PM EDT Pt's mother Kennedi calling in wanting to know why her daughter was put on Prednisone yesterday as she knows Prednisone can weaken the bones. Explained to pt that it helps with breathing issues and being on it short term should not be a problem. Mother appeared to be fine with this information. documented in this encounterK[facility]07-23-2024 Telephone encounter Note * Telephone Encounter - Mariana Gamez MA - 11/10/2023 1:20 PM EDT Pt mother notified and voiced understanding. Mariana Gamez MA [facility]07-[facility] Miscellaneous Notes* Telephone Encounter - Mariana Gamez MA - 11/10/2023 1:20 PM EDT Pt mother notified and voiced understanding. Mariana Gamez MA * Telephone Encounter - Chaim Garcia APRN.CNP - 11/10/2023 12:45 PM EDT Please let the patient know that her chest x-ray does not show any evidence of pneumonia. Just somefindings of inflammation which would more correlate with bronchitis. Continue with medication as prescribed. Follow-up if not improving. Chaim Garcia APRN.CNP documented in this encounterK[facility]07-23-2024 Telephone encounter Note * Telephone Encounter - Chaim Garcia APRN.CNP - 11/10/2023 12:45 PM EDT Please let the patient know that her chest x-ray does not show any evidence of pneumonia. Just somefindings of inflammation which would more correlate with bronchitis. Continue with medication as prescribed. Follow-up if not improving. Chaim Garcia APRN.CNP [facility]07-23-[facility]24 History of Present illness Narrative* Cliff Estrada, RT(R) - 11/10/2023 12:00 PM EDT Radiology Service Progress Note PATIENT NAME: Maria Del Rosario Laws DATE OF SERVICE: November 10, 2023 TIME: 11:59 AM PATIENT IDENTITY VERIFICATION COMPLETED USING TWO (2) IDENTIFIERS: Name and Date of confirmedby patient verbally. FALL SCREENING: Has the patient had 2 falls in the last year or 1 fall with injury or currently using an Ambulatory Assistive Device (Walker, Cane, Wheelchair, Crutches, etc.)? No PATIENT GENDER DATA: Female. status: : No status: NO. PATIENT RELEVANT IMPLANT DATA REVIEWED: Yes PATIENT PRESENTS WITH AN IMPLANTABLE OR ATTACHED STAIN MAKER: No RADIOLOGY DEPARTMENT: General X-ray: Exam(s) Completed: Chest X-Ray PERIPHERAL IV DATA: Not applicable SIGNED BY: RT Juliano(R) November 10, 2023 11:59 AM documented in this encounterK[facility]07-23-2024 History of Present illness Narrative* Chaim Garcia APRN.MILLER HEAD ASSISTANT WET PROCESS - 11/10/2023 11:47 AM EDT Chief Complaint Patient presents with: Cough: With congestion, fever x 2 weeks HPI Maria Del Rosario Laws is a 43 year old female who presents here today for Above Complaints. Hst of asthma. Brother and mother have been sick ENT: Patient complains of sinus pressure. Duration: Approximately 2 weeks. Fever: Yes. Headache: Yes. Sore throat: Yes. Ear pain: Yes. Nasal drainage: Yes. Cough: Yes. Shortness of breath: Yes. Nausea: Yes. Vomiting: No. Diarrhea: No. Previous treatment: No. Past medical history, appointments, medications, allergies reviewed. EXAM: BP 112/77 Pulse 92 Temp 37.5 C (99.5 F) Resp 21 Wt (!) 143.3 kg (316 lb) LMP 06/17/2023 (Approximate) SpO2 98% BMI 56.70 kg/m General Appearance: Well appearing, alert, in no acute distress, well-hydrated, well nourished. andObese. Head: Normocephalic, no masses, lesions, tenderness or abnormalities. Eyes: Anicteric sclera. Pupils are equally round and reactive to light. Extraocular movements are intact. . Ears: External ears normal, canals clear. Nose/Sinuses: Positive findings: mucosa erythematous and swollen, purulent rhinorrhea. Positive maxillary tenderness bilat Oropharynx: Positive findings: mild oropharyngeal erythema. Neck: Supple, no adenopathy Lungs: Positive findings: wheezing Shortness of breath: Upon exertion Cough. Heart: RRR without murmur, gallop, or rubs. No ectopy. ASSESSMENT/PLAN: 1. Acute bronchitis, unspecified organism - ICD9: 466.0, ICD10: J20.9 (primary diagnosis) -Get chest x-ray, rule out pneumonia, treat for sinobronchitis. Tessalon Perles for cough. Cover with Augmentin, prednisone. - XR CHEST 2V FRONTAL/LAT - AMOXICILLIN 875 MG-POTASSIUM CLAVULANATE 125 MG TABLET - PREDNISONE 20 MG TABLET 2. Asthma with acute exacerbation, unspecified asthma severity, unspecified whether persistent - ICD9: 493.92, ICD10: J45.901 - see #1. Encourage patient to use inhaler as prescribed., Get chest x-ray - XR CHEST 2V FRONTAL/LAT - AMOXICILLIN 875 MG-POTASSIUM CLAVULANATE 125 MG TABLET - PREDNISONE 20 MG TABLET Chaim Garcia APRN.MILLER HEAD ASSISTANT WET PROCESS RTO as needed This note was partly generated using [employer]k voice recognition dictation and may contain some misspelled or inaccurate words missed on review. documented in this encounterK[facility]07-22-2024 Telephone encounter Note * Telephone Encounter - Mariana Gamez MA - 11/09/2023 10:11 AM EDT Pt mother notified and voiced understanding. Mariana Gamez MA [facility]07-22-[facility]24 Miscellaneous Notes* Telephone Encounter - Mariana Gamez MA - 11/09/2023 10:11 AM EDT Pt mother notified and voiced understanding. Mariana Gamez MA * Telephone Encounter - Chaim Garcia APRN.CNP - 11/09/2023 9:56 AM EDT If this patient wants any medication, she would need to be evaluated. Can use express care if our openings don't align with her availability. Chaim Garcia APRN.DIXIE * Telephone Encounter - Gabriella Cano RN - 11/07/2023 9:47 AM EDT Mother calls in not happy that another provider can't just send in a prescription for an antibiotic. Instructed her to take patient to [facility] for evaluation of symptoms if requesting further antibiotic. Mother verbalizes understanding but not sure if she will take patient in. Symptom is cough. Gabriella Cano, PIERO * Telephone Encounter - Andrew Gallego MA - 11/07/2023 8:56 AM EDT Left message to call office. 11/07/2023 8:57 AM TC to pt to advise PCP is not in until Thursday - May be best for an express care evaluation if she does not want to wait. * Telephone Encounter - Justine Zhang - 11/06/2023 4:11 PM EDT Maria Del Rosario is calling Daniel Tan MD today to say she still has bronchitis/ Cough She is requesting more amoxicillin and Teskaren Sen Patient has been identified by name and birthdate. Duration of symptoms: N/A Person calling: self Call patient at: at home [phone] (home) Was an appointment scheduled: No Closing statement: Justine Patel documented in this encounterK[facility]07-22-2024 Telephone encounter Note * Telephone Encounter - Chaim Garcia APRN.CNP - 11/09/2023 9:56 AM EDT If this patient wants any medication, she would need to be evaluated. Can use express care if our openings don't align with her availability. Chaim Garcia APRN.CNP [facility]07-20-2024 Telephone encounter Note* Telephone Encounter - Gabriella Cano RN - 11/07/2023 9:47 AM EDT Mother calls in not happy that another provider can't just send in a prescription for an antibiotic. Instructed her to take patient to [facility] for evaluation of symptoms if requesting further antibiotic. Mother verbalizes understanding but not sure if she will take patient in. Symptom is cough. Gabriella Cano, RN [facility]07-20-2024 Telephone encounter Note* Telephone Encounter - Andrew Gallego MA - 11/07/2023 8:56 AM EDT Left message to call office. 11/07/2023 8:57 AM TC to pt to advise PCP is not in until Thursday - May be best for an express care evaluation if she does not want to wait. [facility]07-19-[facility] Telephone encounter Note* Telephone Encounter - Justine Zhang - 11/06/2023 4:11 PM EDT Maria Del Rosario is calling Daniel Tan MD today to say she still has bronchitis/ Cough She is requesting more amoxicillin and Tessalon Perles Patient has been identified by name and birthdate. Duration of symptoms: N/A Person calling: self Call patient at: at home [phone] (home) Was an appointment scheduled: No Closing statement: Justine Patel [facility] Work Phone: 1(458) 469-573007-17-2024 Telephone encounter Note* Telephone Encounter - Monik Hernandez LPN - 11/04/2023 2:43 PM EDT Pt was given an Rx for amox for a dental infection on 10/20/23. Pt's mother Kennedi states pt finishedthe antibiotic but is still having pain, not as bad as before she took the antibiotic. Her dentist appt is not until 11/11/23 so Kennedi is asking if pt can have a refill for the amox to last until herappt. She is also requesting Prescription Refill Information The patient has been identified by name and date of : Yes Caregiver verified no other encounters exist for this prescription request: Yes Caregiver confirmed with patient/requestor that no other refills are due, in the near future, with this provider at this time: Yes The last office visit in the department: 10/09/23 Does the patient have a future office visit with this provider/department: No Requested Prescriptions Pending Prescriptions Disp Refills benzonatate (TESSALON PERLE) 100 mg capsule 30 capsule 0 Sig: Take 1 capsule by mouth three times a day as needed. Monik Hernandez LPN November 04, 2023 2:46 PM [facility]07-12[facility] Telephone encounter Note* Telephone Encounter - Sally Yi APRN.CNM - 10/30/2023 6:11 PM EDT Agree with emergency department and appointment. Thank you, Sally Yi APRN.CNM [facility]07-12-2024 Miscellaneous Notes* Telephone Encounter - Sally Yi APRN.CNM - 10/30/2023 6:11 PM EDT Agree with emergency department and appointment. Thank you, Sally Yi APRN.CNM * Telephone Encounter - Nasrin Horne LPN - 10/30/2023 2:31 PM EDT Patient's mother called stating that patient began to have heavy dark red vaginal bleeding 3 days ago with quarter size blood clots. Per mother patient is having to change her pad often d/t the bleeding and did state at times she is changing her pad every 1 to 2 hours. Per mother patient has dark circles around her eyes, gets SOB easily, and has CP. Patient denies feeling dizzy. Patient's lastmenses was in 2023, Is not sexually active. Nurse told mother that patient should be evaluatedat the ED due to symptoms. Mother insisted on scheduling an appointment to follow up at our office.Appointment scheduled with Dr. Pitts on 11/02/2023. documented in this encounterK[facility]07-12-2024 Telephone encounter Note * Telephone Encounter - Nasrin Horne LPN - 10/30/2023 2:31 PM EDT Patient's mother called stating that patient began to have heavy dark red vaginal bleeding 3 days ago with quarter size blood clots. Per mother patient is having to change her pad often d/t the bleeding and did state at times she is changing her pad every 1 to 2 hours. Per mother patient has dark circles around her eyes, gets SOB easily, and has CP. Patient denies feeling dizzy. Patient's lastmenses was in 2023, Is not sexually active. Nurse told mother that patient should be evaluatedat the ED due to symptoms. Mother insisted on scheduling an appointment to follow up at our office.Appointment scheduled with Dr. Pitts on 11/02/2023. [facility]07-02-[facility] Telephone encounter Note* Telephone Encounter - Marita Gamboa LPN - 10/20/2023 4:20 PM EDT Patient mother Kennedi calling to check status of request. Went over notes from Dr Tan with understanding. Aware rx sent to pharmacy. [facility]07-02[facility] Miscellaneous Notes* Telephone Encounter - Marita Gamboa LPN - 10/20/2023 4:20 PM EDT Patient mother Kennedi calling to check status of request. Went over notes from Dr Tan with understanding. Aware rx sent to pharmacy. * Telephone Encounter - Daniel Tan MD - 10/20/2023 4:18 PM EDT OK for Amoxicillin for tooth; may take prior to dental appt. Daniel Tan MD * Telephone Encounter - Gabriella Cano RN - 10/20/2023 11:21 AM EDT Mother (Kennedi) calls to let provider know that patient is going to the dentist on November 10 for consultation and tooth extraction. She reports that patient has a tooth that broke off, is rubbing ongum, painful, with slight swelling, and redness. No fever. She reports that patient is going to need an antibiotic prior to dental appointment or they won't extract the tooth. Kennedi is asking provider to send prescription to [facility]. Patient finished Augmentin 875 mg x 10 days on 10/19/2023 for bronchitis. Gabriella Cano, PIERO documented in this encounterK[facility]07-02-2024 Telephone encounter Note * Telephone Encounter - Daniel Tan MD - 10/20/2023 4:18 PM EDT OK for Amoxicillin for tooth; may take prior to dental appt. Daniel Tan MD [facility]07-02-[facility] Telephone encounter Note* Telephone Encounter - Gabriella Cano RN - 10/20/2023 11:21 AM EDT Mother (Kennedi) calls to let provider know that patient is going to the dentist on November 10 for consultation and tooth extraction. She reports that patient has a tooth that broke off, is rubbing ongum, painful, with slight swelling, and redness. No fever. She reports that patient is going to need an antibiotic prior to dental appointment or they won't extract the tooth. Kennedi is asking provider to send prescription to [facility]. Patient finished Augmentin 875 mg x 10 days on 10/19/2023 for bronchitis. Gabriella Cano RN [facility]06-30-2024 Telephone encounter Note* Telephone Encounter - Rose Kuhn LPN - 10/18/2023 4:32 PM EDT Allergies reviewed: Yes ALLERGIES Allergen Reactions Dayquil Liquicaps [* Other: [...] [Valdecoxib] Rash Cephalexin Intolerance Amoxil is ok The following medications were verbally ordered by and read back to provider Dr. Bruno Almanza on 10/18/2023 at 4:32 PM by Rose Kuhn LPN. Requested Prescriptions Signed Prescriptions Disp Refills benzonatate (TESSALON PERLE) 100 mg capsule 30 capsule 0 Sig: Take 1 capsule by mouth three times a day as needed. The prescription(s) were escripted to [facility]; by Rose Kuhn LPN. Escript confirmed receipt from pharmacy at 4:32 PM Patient/Family notified: Yes, mother [facility]06-30-2024 Miscellaneous Notes* Telephone Encounter - Rose Kuhn LPN - 10/18/2023 4:32 PM EDT Allergies reviewed: Yes ALLERGIES Allergen Reactions Dayquil Liquicaps [* Other: [...] [Valdecoxib] Rash Cephalexin Intolerance Amoxil is ok The following medications were verbally ordered by and read back to provider Dr. Bruno Almanza on 10/18/2023 at 4:32 PM by Rose Kuhn LPN. Requested Prescriptions Signed Prescriptions Disp Refills benzonatate (TESSALON PERLE) 100 mg capsule 30 capsule 0 Sig: Take 1 capsule by mouth three times a day as needed. The prescription(s) were escripted to [facility]; by Rose Kuhn LPN. Escript confirmed receipt from pharmacy at 4:32 PM Patient/Family notified: Yes, mother * Telephone Encounter - Ashanti Kwok RN - 10/18/2023 3:47 PM EDT Patient calling with medication/refill: Patient/caregiver requesting refill of Tessalon Perles, 100mg capsule, take 1 capsule by mouth, 3 times a day as needed, be called to [facility] pharmacy in [place] at [phone]., Do you have enough medication to last until the office reopens? No. , and Have you contacted your pharmacy to ask for enough medication to get by until the office reopens? Yes, pharmacy told patient there are no refills. Patient denies any new or worsening symptoms of whicha provider is not aware:Yes. documented in this encounterK[facility]06-30-2024 Telephone encounter Note * Telephone Encounter - Ashanti Kwok RN - 10/18/2023 3:47 PM EDT Patient calling with medication/refill: Patient/caregiver requesting refill of Tessalon Perles, 100mg capsule, take 1 capsule by mouth, 3 times a day as needed, be called to [facility] pharmacy in [place] at [phone]., Do you have enough medication to last until the office reopens? No. , and Have you contacted your pharmacy to ask for enough medication to get by until the office reopens? Yes, pharmacy told patient there are no refills. Patient denies any new or worsening symptoms of whicha provider is not aware:Yes. [facility] Telephone encounter Note* Telephone Encounter - Marita Gamboa LPN - 10/12/2023 2:01 PM EDT Patient mother Kennedi returned call and went over results, notes from Chaim Garcia NP with understanding. [facility]24 Miscellaneous Notes* Telephone Encounter - Marita Gamboa LPN - 10/12/2023 2:01 PM EDT Patient mother Kennedi returned call and went over results, notes from Chaim Garcia HEALTH CENTER ASSOCIATE with understanding. * Telephone Encounter - Mariana Gamze MA - 10/12/2023 9:05 AM EDT Message left for pt to call back for results. Mariana Gamez MA * Telephone Encounter - Chaim Garcia APRN.CNP - 10/12/2023 7:45 AM EDT Please let the patient know that her glucose and Hgb A1c is normal. Other labs are normal. Chaim Garcia APRN.CNP documented in this encounterK[facility]06-24-2024 Telephone encounter Note * Telephone Encounter - Mariana Gamez MA - 10/12/2023 9:05 AM EDT Message left for pt to call back for results. Mariana Gamez MA [facility] [facility] Telephone encounter Note* Telephone Encounter - Chaim Garcia APRN.CNP - 10/12/2023 7:45 AM EDT Please let the patient know that her glucose and Hgb A1c is normal. Other labs are normal. Chaim Garcia APRN.CNP [facility]06-21-2024 Instructions* Patient Instructions* Mariana Gamez MA - 10/09/2023 11:21 AM EDT Since being sick for a few weeks, will treat with antibiotic called Augmentin 875 mg, take 1 pill two times a day for 10 days. Added a daily inhaler called Advair to use 1 puff twice a day every day. Uses the Albuterol inhaleras needed. Recommend getting some lung testing done. She received Pneumonia vaccine (Prevnar 20) during office visit today. She had BMP and A1c labs done today to check for possible diabetes. Follow up with Neurology regarding tremors (hand shaking). documented in this encounterK[facility]06-[facility]24 History of Present illness Narrative* Daniel Tan MD - 10/09/2023 11:00 AM EDT Chief Complaint Patient presents with: Bronchitis HPI Maria Del Rosario Laws is a 43 year old female who presents here today for bronchitis. Pt or pt mother have concerns about possible bronchitis. Pt had CXR done 09/23/23. Pt has complained of chronic cough and is taking Tessalon Perles 2 pills TID prn as well as Zyrtec 10 mg daily and Albuterol inhaler prn. The coughing pills are helping. She does have asthma and uses inhaler as needed.Has been using the inhaler 2-3 times a day typically when she goes up stairs. She has been dealing with the SOB and coughing for 2 weeks now, coughing up phlegm, ear pain, head congestion, head pressure, headaches. Headaches started recently. Uses Tylenol but that doesn't help. Thinks that coughingmakes it worse. She feels fevered but has not checked to see what temp is. She has seen a online merchant in the past but stopped seeing them because she says they recommended she uses some breathing device of some kind, she didn't want to do that so she stopped seeing them. She has not seen the ENT as she was referred for her chronic sinus issues. Admits to always having breathing issues even whenshe is not sick. Tremors: in the hands, not full body shakes. Does not seem to be related to her using her inhaler. She states this is constant. She follows with neuro. Pt had diarrhea 2 days ago but that has improved. It was very loose, like water. She thinks the diarrhea was caused from the Omeprazole. States she has been taking the Prilosec daily since and not had any diarrhea issues. Behavioral Health Screening PHQ-2 Score: 0 (Lower risk for depression) BABITA-2 Score: 0 (Lower risk for anxiety) Recommendation: no further intervention at this time Past medical history, appointments, medications, allergies reviewed. [...] Father Seizures Father Seizures Brother Heart Sister GA Heart Sister Seizures Sister Young Diabetes Maternal [...] benzonatate (TESSALON PERLES) 100 mg capsule Take 2 capsules by mouth three times a day as needed. TYLENOL ARTHRITIS PAIN 650 mg CR tablet Take 1 tablet by mouth every 8 hours as needed. omeprazole (PRILOSEC) 40 mg capsule Take 40 mg by mouth once daily. cyclobenzaprine (FLEXERIL) 10 mg tablet Take 1 tablet by mouth three times a day as needed for muscle spasm. benzonatate (TESSALON PERLE) 100 mg capsule Take 1 capsule by mouth three times a day as needed. albuterol HFA (VENTOLIN HFA) 90 mcg/actuation inhaler Inhale 2 Puffs as instructed every 4 hours asneeded for wheezing/shortness of breath. benztropine (COGENTIN) 1 mg tablet TAKE 1 & 1/2 (ONE AND ONE-HALF) TABLETS BY MOUTH IN THE MORNING and ONE TABLET AT BEDTIME metoprolol succinate ER (TOPROL XL) 25 mg 24 hr tablet Take 1 tablet by mouth once [...] daily levETIRAcetam (KEPPRA) 750 mg tablet Take 1,000 mg by mouth two times a day. Norethindrone, Contraceptive, (ORTHO MICRONOR) 0.35 mg tablet [...] use: No Drug use: No EXAM: BP 130/88 Pulse 80 Temp 36.7 C (98 F) (Tympanic) Resp 20 Wt (!) 143.5 kg (316 lb 6.4 oz) LMP 06/17/2023 (Approximate) SpO2 96% BMI 56.77 kg/m General Appearance: Well appearing, alert, in no acute distress, well-hydrated, well nourished. andMorbidly obese. Ears: External ears normal, canals clear. Lungs: Lungs clear to auscultation. No wheezing, rhonchi, rales.. Heart: RRR without murmur, gallop, or rubs. No ectopy. Health Maintenance List Pneumococcal Vaccine(1 of 2 - PCV) Never done Spirometry Never done Mammogram Screening Never done Behavioral Health Screening Never done Cervical Cancer Screening due on 06/03/2023 Hepatitis B Vaccine(1 of 3 - 19+ 3-dose series) due on 12/25/2023 Hepatitis C Screening due on 12/25/2023 Covid-19 Vaccine( - season) due on 12/25/2023 Influenza Vaccine(Season Ended) due on 12/20/2023 Annual PCP Team Chronic Disease Visit due on 08/31/2024 DTaP,Tdap,Td Vaccine(2 - Td or Tdap) due on 06/03/2028 HIV Screening Completed HPV Vaccine Aged Out Data reviewed CXR 09/23/23 ASSESSMENT/PLAN: 1. Acute bronchitis, unspecified organism - ICD9: 466.0, ICD10: J20.9 (primary diagnosis) Start Augmentin 875 mg BID x 10 days Rx for Tessalone perles sent 2. Asthma with acute exacerbation, unspecified asthma severity, unspecified whether persistent - ICD9: 493.92, ICD10: J45.901 - Mild intermittent asthma stable - Continue current medications - Avoidance of triggers recommended - Add Advair inhaler 1 puff BID - Get Spirometry testing done. 3. Tremor of both hands - ICD9: 781.0, ICD10: R25.1 Follow up with Neuro Will check labs today Follow up as needed. Will notify of lab results and Spirometry results. I agree with the Chief Complaint, ROS, and Past Histories independently gathered by the clinical technical support agent and the remaining scribed note accurately describes my personal service to the patient. Medical Decision Making: Problems: Low: Acute, uncomplicated illness or injury Moderate: 1+ chronic illnesses with change Data: Unique test(s) ordered: 2 Risk: Moderate: Drug management Medical Decision Making Level: 4 - Moderate Daniel Tan MD The documentation for this note was completed by Mariana Gamez MA acting as scribe for Daniel Tan MD. October 09, 2023 10:52 AM. Mariana Gamez MA documented in this encounterK[facility]06-[facility]24 Telephone encounter Note * Telephone Encounter - Jana Culver RN - 09/23/2023 5:43 PM EDT Patient calling regarding medication questions, chest pain last week, no symptoms now. Conferenced to Cardiology Answering Service [phone] to speak with provider interventional physiatrist for Dr. Escudero. [facility]06-05-2024 Miscellaneous Notes* Telephone Encounter - Jana Culver RN - 09/23/2023 5:43 PM EDT Patient calling regarding medication questions, chest pain last week, no symptoms now. Conferenced to Cardiology Answering Service [phone] to speak with provider interventional physiatrist for Dr. Escudero. documented in this encounterK[facility]06-[facility]-2024 History of Present illness Narrative* Noy Moss PA-C - 09/23/2023 2:50 PM EDT This note was created using [email or web address]. Subjective Maria Del Rosario Laws is a 43 year old female. HPI Patient presents with a chief complaint of cough, fever sore throat for about a week. She did not check temperature. No vomiting or diarrhea. She has not used her inhaler much this illness. She has noticed some productive cough. She denies chest pain or shortness of breath. Review of Systems Constitutional: Positive for fatigue and fever. HENT: Positive for congestion, ear pain, rhinorrhea and sore throat. Respiratory: Positive for cough. Negative for shortness of breath and wheezing. Cardiovascular: Negative. Gastrointestinal: Negative. Genitourinary: Negative. Musculoskeletal: Negative. All other systems reviewed and are negative. PAST MEDICAL HISTORY Diagnosis Date Abnormal result of cardiovascular function study Adjustment disorder with depressed mood Chest pain Chronic factitious illness with physical symptoms Closed fracture of unspecified bone right arm Closed fracture of unspecified bone left ankle Esophageal reflux Myalgia and myositis, unspecified Other forms of dyspnea Seizure disorder ([facility]) 09/26/2011 SOB (shortness of breath) Unspecified asthma, with status asthmaticus Current Outpatient Medications Medication Sig Dispense Refill TYLENOL ARTHRITIS PAIN 650 mg CR tablet Take 1 tablet by mouth every 8 hours as needed. 100 Each 2 omeprazole (PRILOSEC) 40 mg capsule Take 40 mg by mouth once daily. cyclobenzaprine (FLEXERIL) 10 mg tablet Take 1 tablet by mouth three times a day as needed for muscle spasm. 30 tablet 5 benzonatate (TESSALON PERLE) 100 mg capsule Take 1 capsule by mouth three times a day as needed. 30capsule 1 benztropine (COGENTIN) 1 mg tablet TAKE 1 & 1/2 (ONE AND ONE-HALF) TABLETS BY MOUTH IN THE MORNING and ONE TABLET AT BEDTIME metoprolol succinate ER (TOPROL XL) 25 mg 24 hr tablet Take 1 tablet by mouth once daily. 90 tablet3 montelukast (SINGULAIR) 10 mg tablet Take 1 tablet by mouth daily at bedtime. 90 tablet 3 cetirizine (ZYRTEC) 10 mg tablet Take 1 tablet by mouth once daily. 90 tablet 3 citalopram (CELEXA) 20 mg tablet 20 mg once daily. 1 tablet daily zonisamide (ZONEGRAN) 100 mg capsule Take 100 mg by mouth once daily. 2 capsules by mouth twice daily levETIRAcetam (KEPPRA) 750 mg tablet Take 1,000 mg by mouth two times a day. Norethindrone, Contraceptive, (ORTHO MICRONOR) 0.35 mg tablet Take 1 tablet by mouth once daily. 28tablet 11 iloperidone (FANAPT) 4 mg tab Take 1 tablet by mouth daily at bedtime. topiramate (TOPAMAX) 200 mg tablet Take 2 tablets by mouth twice daily. 0 lacosamide (VIMPAT) 200 mg tab Take 2 tablets by mouth twice daily. 0 therapeutic multivitamin ORAL Tab Take one(1) tablet daily. 0 benzonatate (TESSALON PERLES) 100 mg capsule Take 2 capsules by mouth three times a day as needed. 30 capsule 0 albuterol HFA (VENTOLIN HFA) 90 mcg/actuation inhaler Inhale 2 Puffs as instructed every 4 hours asneeded for wheezing/shortness of breath. 1 Each 4 No current facility-administered medications for this visit. PAST SURGICAL HISTORY Procedure Laterality Date CHEST X-RAY 06/16/2020 CHEST X-RAY 06/16/2020 ECHO 02/13/2022 EF60% EKG 09/30/2019 PAST SURGICAL HISTORY OF cyst removal from lower back STRESS TEST 03/10/2019 STRESS TEST 02/13/2022 FAMILY HISTORY Problem Relation Age of Onset Asthma Mother other (Reflux) Mother other (angina) Mother Heart Father Seizures Father Seizures Brother Heart Sister GA Heart Sister Seizures Sister Young Diabetes Maternal Grandmother Stroke Maternal Grandmother other (hypoglycemia) Maternal Grandfather Social History Tobacco Use Smoking status: Never Smokeless tobacco: Never Substance Use Topics Alcohol use: No Drug use: No Objective BP 128/80 Pulse 100 Temp 36.9 C (98.5 F) Resp 20 Wt (!) 145 kg (319 lb 10.7 oz) LMP 06/17/2023 (Approximate) SpO2 97% BMI 57.36 kg/m Physical Exam Vitals reviewed. Constitutional: Appearance: Normal appearance. HENT: Head: Normocephalic and atraumatic. Right Ear: Tympanic membrane, ear canal and external ear normal. Left Ear: Tympanic membrane, ear canal and external ear normal. Nose: Congestion present. Mouth/Throat: Mouth: Mucous membranes are moist. Pharynx: Oropharynx is clear. Cardiovascular: Rate and Rhythm: Normal rate and regular rhythm. Heart sounds: Normal heart sounds. Pulmonary: Effort: Pulmonary effort is normal. Breath sounds: Normal breath sounds. No wheezing, rhonchi or rales. Musculoskeletal: Cervical back: Neck supple. Skin: General: Skin is warm and dry. Findings: No rash. Neurological: General: No focal deficit present. Mental Status: She is alert and oriented to person, place, and time. Assessment and Plan ASSESSMENT/PLAN: 1. Acute URI - ICD9: 465.9, ICD10: J06.9 - Discussed viral etiology and rationale for treatment. - Symptomatic treatment with prn analgesia - Supportive care with fluids and rest -Chest x-ray is clear. Will treat with Tessalon. Use inhaler as needed. Lungs are clear on exam. Vital signs are stable. Follow-up with PCP if not improving. Patient agreeable with plan. - XR CHEST 2V FRONTAL/LAT Noy Moss PA-C documented in this encounterK[facility]06-[facility] History of Present illness Narrative* Nara Forrester RT(R) - 09/23/2023 2:10 PM EDT Radiology Service Progress Note PATIENT NAME: Maria Del Rosario Laws DATE OF SERVICE: September 23, 2023 TIME: 2:04 PM PATIENT IDENTITY VERIFICATION COMPLETED USING TWO (2) IDENTIFIERS: Name and Date of confirmedby patient verbally. FALL SCREENING: Has the patient had 2 falls in the last year or 1 fall with injury or currently using an Ambulatory Assistive Device (Walker, Cane, Wheelchair, Crutches, etc.)? No PATIENT GENDER DATA: Female. status: : No status: NO. PATIENT RELEVANT IMPLANT DATA REVIEWED: Not Applicable PATIENT PRESENTS WITH AN IMPLANTABLE OR ATTACHED STAIN MAKER: No RADIOLOGY DEPARTMENT: General X-ray: Exam(s) Completed: Chest X-Ray PERIPHERAL IV DATA: Not applicable SIGNED BY: RT Gerardo(R) September 23, 2023 2:04 PM documented in this encounterK[facility]06-04-2024 Telephone encounter Note * Telephone Encounter - Ángela Villa LPN - 09/22/2023 3:37 PM EDT Pt calling to let you know she feels she has bronchitis x 1 week and her ears are bothering her x 3to 4 days. Pt reports she is coughing, chest congestion,nasal drainage was green and is brownish incolor. Pt instructed if she wants seen today [facility]. Pt schedule apt for tomorrow 09-22-23 with Idalia Lewis. Ángela Villa LPN [facility]06-04-2024 Miscellaneous Notes* Telephone Encounter - Ángela Villa LPN - 09/22/2023 3:37 PM EDT Pt calling to let you know she feels she has bronchitis x 1 week and her ears are bothering her x 3to 4 days. Pt reports she is coughing, chest congestion,nasal drainage was green and is brownish incolor. Pt instructed if she wants seen today may go to [facility]. Pt schedule apt for tomorrow 09-22-23 with Idalia Lewis. Ángela Villa LPN documented in this encounterK[facility]05-31-2024 Telephone encounter Note * Telephone Encounter - Jana Culver RN - 09/18/2023 6:31 PM EDT Reason for Call: pt with cough, brown sputum Outcome: advised to be seen within 24 hours, conferenced to appointment center for scheduling assistance. Reason for Disposition SEVERE coughing spells (e.g., whooping sound after coughing, vomiting after coughing) Answer Assessment - Initial Assessment Questions 1. ONSET:a few days 2. SEVERITY: Mild 3. SPUTUM: Brown 4. HEMOPTYSIS: denies 5. DIFFICULTY BREATHING: denies 6. FEVER: denies 7. CARDIAC HISTORY: HTN 8. LUNG HISTORY: Asthma 9. PE RISK FACTORS: Denies 10. OTHER SYMPTOMS: denies 11. : Denies, LMP unknown 12. TRAVEL: denies Protocols used: Cough - Acute [id number] [facility]05-31-2024 Miscellaneous Notes* Telephone Encounter - Jana Culver RN - 09/18/2023 6:31 PM EDT Reason for Call: pt with cough, brown sputum Outcome: advised to be seen within 24 hours, conferenced to appointment center for scheduling assistance. Reason for Disposition SEVERE coughing spells (e.g., whooping sound after coughing, vomiting after coughing) Answer Assessment - Initial Assessment Questions 1. ONSET:a few days 2. SEVERITY: Mild 3. SPUTUM: Brown 4. HEMOPTYSIS: denies 5. DIFFICULTY BREATHING: denies 6. FEVER: denies 7. CARDIAC HISTORY: HTN 8. LUNG HISTORY: Asthma 9. PE RISK FACTORS: Denies 10. OTHER SYMPTOMS: denies 11. : Denies, LMP unknown 12. TRAVEL: denies Protocols used: Cough - Acute [id number] documented in this encounterKet[facility]05-20-2024 Telephone encounter Note * Telephone Encounter - Daniel Tan MD - 09/07/2023 7:45 PM EDT OK for Rx as ordered Daniel Tan MD [facility]05-20-2024 Miscellaneous Notes* Telephone Encounter - Daniel Tan MD - 09/07/2023 7:45 PM EDT OK for Rx as ordered Daniel Tan MD * Telephone Encounter - Gabriella Cano RN - 09/07/2023 2:55 PM EDT Mother returns call and reports that patient is not able to take ibuprofen anymore and needs tylenol arthritis prescription sent to [facility] so insurance will cover it. Reports it has to be Tylenolnot generic. Marked LEEANNA per request. Gabriella Cano RN * Telephone Encounter - Shima Rosado LPN - 09/07/2023 2:50 PM EDT Patient mother states that [facility] told her she has to switch from what we have been giving herto Tylenol Arthritis but she needs an order so it is paid for. I advised that we need a name of themedication. I ask her if it was ibuprofen and she said no but it does look like she is getting thatevery month? She is going to check bottle and let us know the name. * Telephone Encounter - Chaim Garcia APRN.CNP - 09/07/2023 2:20 PM EDT Please let the patient/mother know that acetaminophen and tylenol is the same medication. Chaim Garcia APRN.DIXIE * Telephone Encounter - Queta Garcia RN - 09/07/2023 1:55 PM EDT Patient's mother calls and states that patient cannot take Acetaminophen anymore due to causing liver issues. Mother states that patient can only take Tylenol Arthritis. Tried to explain to mother that Tylenol is acetaminophen. Mother states that they are two different medications. Queta Garcia RN documented in this encounterK[facility]05-20-2024 Telephone encounter Note * Telephone Encounter - Gabriella Cano RN - 09/07/2023 2:55 PM EDT Mother returns call and reports that patient is not able to take ibuprofen anymore and needs tylenol arthritis prescription sent to [facility] so insurance will cover it. Reports it has to be Tylenolnot generic. Marked LEEANNA per request. Gabriella Cano RN [facility]05-20-2024 Telephone encounter Note* Telephone Encounter - Shima Rosado LPN - 09/07/2023 2:50 PM EDT Patient mother states that [facility] told her she has to switch from what we have been giving herto Tylenol Arthritis but she needs an order so it is paid for. I advised that we need a name of themedication. I ask her if it was ibuprofen and she said no but it does look like she is getting thatevery month? She is going to check bottle and let us know the name. [facility]05-20-[facility]24 Telephone encounter Note* Telephone Encounter - Chaim Garcia APRN.CNP - 09/07/2023 2:20 PM EDT Please let the patient/mother know that acetaminophen and tylenol is the same medication. Chaim Garcia APRN.CNP [facility]05-20-2024 Telephone encounter Note* Telephone Encounter - Queta Garcia RN - 09/07/2023 1:55 PM EDT Patient's mother calls and states that patient cannot take Acetaminophen anymore due to causing liver issues. Mother states that patient can only take Tylenol Arthritis. Tried to explain to mother that Tylenol is acetaminophen. Mother states that they are two different medications. Queta Garcia RN [facility]05-14-2024 Instructions* Patient Instructions* Chantel Townsend MA - 09/01/2023 2:55 PM EDT Area on skin is a skin tag that has been slightly torn and now irritated. Pt has been referred to General Surgery to remove this. They are located at the [facility] on [facility]. documented in this encounterKettering [facility]05-14-2024 History of Present illness Narrative* Daniel Tan MD - 09/01/2023 2:40 PM EDT Chief Complaint Patient presents with: skin issue: Open wound on R buttock x2 days - painful to the touch HPI Maria Del Rosario Laws is a 43 year old female who presents here today for an acute visit. Pt seen at [facility] ED on 08/01/23, taken by matt for urinary complaints. Here today for a mole that she's concerned about. Pt here today with c/o of a mole on her right hip that opened up yesterday. States this has been there for quite some time but worse over the past two days. Area is red and painful. Denies any drainage. Hurts to lie on her right side. States it's the size of a dime. Mother called in and was concerned about this. States the area didn't look like this prior. Pt had work up done in ER for urinary symptoms. Mother during Triage call states that pt was not able to pass much urine and having urinary retention. She felt that pt needed cathed. Also reported that urine was foul smelling and smelled like BM. Pt had urinary work up completed with a UA. No infection or retention appeared. Pt has chronic urinary symptoms and has an appt with [facility]rology on 09/08/[address] Hager on 09/11/23. Pt c/o of a cough, which this is chronic for pt. Recurrently treated for bronchitis. The ED felt this could be related to uncontrolled GERD and was treated with Omeprazole 40 mg once daily. Past medical history, appointments, medications, allergies reviewed. [...] Father Seizures Father Seizures Brother Heart Sister GA Heart Sister Seizures Sister Young Diabetes Maternal [...] on File Prior to Visit Medication Sig cyclobenzaprine (FLEXERIL) 10 mg tablet Take 1 tablet by mouth three times a day as needed for muscle spasm. benzonatate (TESSALON PERLE) 100 mg capsule Take 1 capsule by mouth three times a day as needed. albuterol HFA (VENTOLIN HFA) 90 mcg/actuation inhaler Inhale 2 Puffs as instructed every 4 hours asneeded for wheezing/shortness of breath. benztropine (COGENTIN) 1 mg tablet TAKE 1 & 1/2 (ONE AND ONE-HALF) TABLETS BY MOUTH IN THE MORNING and ONE TABLET AT BEDTIME metoprolol succinate ER (TOPROL XL) 25 mg 24 hr tablet Take 1 tablet by mouth once daily. triamcinolone acetonide (NASACORT) 55 mcg nasal inhaler Use 1 [place] in the nose once daily. (Patient not taking: Reported on 07/28/2023) montelukast (SINGULAIR) 10 mg tablet Take 1 tablet by mouth daily at bedtime. ibuprofen (MOTRIN) 600 mg tablet Take 1 tablet by mouth every 6 hours as needed for pain. (Patient not taking: Reported on 07/28/2023) cetirizine (ZYRTEC) 10 mg tablet Take 1 tablet by mouth once daily. citalopram (CELEXA) 20 mg tablet 20 mg once daily. 1 tablet daily zonisamide (ZONEGRAN) 100 mg capsule Take 100 mg by mouth once daily. 2 capsules by mouth twice daily levETIRAcetam (KEPPRA) 750 mg tablet Take 1,000 mg by mouth two times a day. Norethindrone, Contraceptive, (ORTHO MICRONOR) 0.35 mg tablet [...] use: No Drug use: No EXAM: BP 130/80 Pulse 80 Resp 18 LMP 06/17/2023 (Approximate) General Appearance: Well appearing, alert, in no acute distress, well-hydrated, well nourished. andObese. Skin: Large skin tag located on right lower buttock/rectal. Appears to have been snagged causing irritation. Health Maintenance List Pneumococcal Vaccine(1 of 2 - PCV) Never done Spirometry Never done Mammogram Screening Never done Behavioral Health Screening Never done Pap Testing due on 06/03/2023 HPV Testing due on 06/03/2023 Hepatitis B Vaccine(1 of 3 - 19+ 3-dose series) due on 12/25/2023 Hepatitis C Screening due on 12/25/2023 Covid-19 Vaccine( - season) due on 12/25/2023 Influenza Vaccine(Season Ended) due on 12/20/2023 Annual PCP Team Chronic Disease Visit due on 08/10/2024 DTaP,Tdap,Td Vaccine(2 - Td or Tdap) due on 06/03/2028 HIV Screening Completed HPV Vaccine Aged Out Data reviewed [facility] Records ASSESSMENT/PLAN: 1. Skin tag - ICD9: 701.9, ICD10: L91.8 (primary diagnosis) - Refer to General Surgery due to size of skin tag 2. Inflamed skin tag - ICD9: 701.9, 686.9, ICD10: L91.8 - As noted above Schedule to see General Surgery. I agree with the Chief Complaint, ROS, and Past Histories independently gathered by the clinical technical support agent and the remaining scribed note accurately describes my personal service to the patient. Medical Decision Making: Problems: Low: Acute, uncomplicated illness or injury Risk: Low: Low risk from testing/treatment Medical Decision Making Level: 3 - Low Daniel Tan MD The documentation for this note was completed by Cahntel Townsend MA acting as scribe for Daniel Tan MD. September 01, 2023 2:55 PM. Chantel Townsend MA documented in this encounterKettering [facility]05-13-2024 Telephone encounter Note * Telephone Encounter - Chantel Townsend MA - 08/31/2023 10:41 AM EDT Spoke with Triage who states that pt's Mother called twice regarding pt's symptoms. Kennedi states she called the ED who said they would not see pt for her hip issue. Kennedi was advised that pt should go to ED for urinary complaints and they can evaluate mole or possible boil during visit. Kennedi was agreeable to this then returned call to office and stated she was going to have pt f/u with Dr. Hager's office. Pt is currently scheduled to see Urology, BRIDGETTE Milner on 09/08/23. Do not see pt is actively a pt of Dr. Hager's at this time. Please advise if she should wait to be seen or go to ED to be evaluated. Scheduled tomorrow for hip. Chantel Townsend MA [facility]05-13-2024 Miscellaneous Notes* Telephone Encounter - Chantel Townsend MA - 08/31/2023 10:41 AM EDT Spoke with Triage who states that pt's Mother called twice regarding pt's symptoms. Kennedi states she called the ED who said they would not see pt for her hip issue. Kennedi was advised that pt should go to ED for urinary complaints and they can evaluate mole or possible boil during visit. Kennedi was agreeable to this then returned call to office and stated she was going to have pt f/u with Dr. Hager's office. Pt is currently scheduled to see Urology, BRIDGETTE Milner on 09/08/23. Do not see pt is actively a pt of Dr. Pimentel at this time. Please advise if she should wait to be seen or go to ED to be evaluated. Scheduled tomorrow for hip. Chantel Townsend MA * Telephone Encounter - Tala Garcia RN - 08/31/2023 8:36 AM EDT Triage Protocol Advised: ER now. Caller/Guardian is agreeable. Also advised caller that patient's hip can be evaluated at ER as well, due to concern for infection. Reason for Disposition [1] Unable to urinate (or only a few drops) > 4 hours AND [2] bladder feels very full (e.g., palpable bladder or strong urge to urinate) Answer Assessment - Initial Assessment Questions Patient's guardian Kennedi Laws calling regarding patient. Voices two patient concerns: a mole on pt's hip that opened and is red and painful as well as unable to urinate, possible fever (patient's face red and feels warm), extreme foul odor to urine, headache. Reports patient does not feel well. Unable to urinate-only few drops. Having urinary frequency-trying to urinate every 5 minutes. Caller requesting to have patient's bladder drained as soon as possible, states It needs drained. Has bladder fullness. Also states patient has a mole on her hip for months. Reports last night it opened up and was big and white. It bled. Mole is now purple and red and painful. 1. SYMPTOM: as above 2. ONSET: urinary sx's began over the weekend 3. PAIN: moderate 4. CAUSE: Possible UTI 5. OTHER SYMPTOMS: Denies blood in urine 6. : no Protocols used: Urinary [id number] documented in this encounterK[facility] Telephone encounter Note * Telephone Encounter - Taal Garcia RN - 08/31/2023 8:36 AM EDT Triage Protocol Advised: ER now. Caller/Guardian is agreeable. Also advised caller that patient's hip can be evaluated at ER as well, due to concern for infection. Reason for Disposition [1] Unable to urinate (or only a few drops) > 4 hours AND [2] bladder feels very full (e.g., palpable bladder or strong urge to urinate) Answer Assessment - Initial Assessment Questions Patient's guardian Kennedi Laws calling regarding patient. Voices two patient concerns: a mole on pt's hip that opened and is red and painful as well as unable to urinate, possible fever (patient's face red and feels warm), extreme foul odor to urine, headache. Reports patient does not feel well. Unable to urinate-only few drops. Having urinary frequency-trying to urinate every 5 minutes. Caller requesting to have patient's bladder drained as soon as possible, states It needs drained. Has bladder fullness. Also states patient has a mole on her hip for months. Reports last night it opened up and was big and white. It bled. Mole is now purple and red and painful. 1. SYMPTOM: as above 2. ONSET: urinary sx's began over the weekend 3. PAIN: moderate 4. CAUSE: Possible UTI 5. OTHER SYMPTOMS: Denies blood in urine 6. : no Protocols used: Urinary [id number] [facility]05-13-2024 Hospital Discharge instructions Additional Instructions Please use the omeprazole daily in the morning. Maintain hydration.[facility] [place] Work Phone: [phone]) 772-614805-07-2024 Telephone encounter Note* Telephone Encounter - Daniel Tan MD - 08/25/2023 4:54 PM EDT OK to refill as ordered Daniel Tan MD [facility]05-07-2024 Miscellaneous Notes* Telephone Encounter - Daniel Tan MD - 08/25/2023 4:54 PM EDT OK to refill as ordered Daniel Tan MD * Telephone Encounter - Ángela Villa LPN - 08/25/2023 4:49 PM EDT Patient has been identified by name and date of : Yes, Provider Dr. Tan Date 08/25/23 Time 4:49 pm Patient phones for refill(s): Requested Prescriptions Pending Prescriptions Disp Refills cyclobenzaprine (FLEXERIL) 10 mg tablet 30 tablet 2 Sig: Take 1 tablet by mouth three times a day as needed for muscle spasm. Date of last office visit in primary care: 08/11/2023 Date of next office visit in primary care: Visit date not found Thank you. Ángela Villa LPN. * Telephone Encounter - Jacki Miller - 08/25/2023 4:44 PM EDT Patient has been identified by name and date of : Yes Requested Prescriptions Pending Prescriptions Disp Refills cyclobenzaprine (FLEXERIL) 10 mg tablet 30 tablet 2 Sig: Take 1 tablet by mouth three times a day as needed for muscle spasm. RX INSTRUCTIONS: Patient aware RX will be sent to pharmacy. No need to notify patient. Jacki Miller documented in this encounterK[facility] Telephone encounter Note * Telephone Encounter - Ángela Villa LPN - 08/25/2023 4:49 PM EDT Patient has been identified by name and date of : Yes, Provider Dr. Tan Date 08/25/23 Time 4:49 pm Patient phones for refill(s): Requested Prescriptions Pending Prescriptions Disp Refills cyclobenzaprine (FLEXERIL) 10 mg tablet 30 tablet 2 Sig: Take 1 tablet by mouth three times a day as needed for muscle spasm. Date of last office visit in primary care: 08/11/2023 Date of next office visit in primary care: Visit date not found Thank you. Ángela Villa LPN. [facility]05-07-2024 Telephone encounter Note* Telephone Encounter - Jacki Miller - 08/25/2023 4:44 PM EDT Patient has been identified by name and date of : Yes Requested Prescriptions Pending Prescriptions Disp Refills cyclobenzaprine (FLEXERIL) 10 mg tablet 30 tablet 2 Sig: Take 1 tablet by mouth three times a day as needed for muscle spasm. RX INSTRUCTIONS: Patient aware RX will be sent to pharmacy. No need to notify patient. Jacki Miller [facility]04-23-2024 Telephone encounter Note* Telephone Encounter - Mariana Gamez MA - 08/11/2023 3:44 PM EDT Pt mother notified. Mariana Gamez MA [facility]04-23-2024 Miscellaneous Notes* Telephone Encounter - Mariana Gamez MA - 08/11/2023 3:44 PM EDT Pt mother notified. Mariana Gamez MA * Telephone Encounter - Daniel Tan MD - 08/11/2023 3:41 PM EDT OK for Nystatin powder as ordered Daniel Tan MD * Telephone Encounter - Ángela Villa LPN - 08/11/2023 3:18 PM EDT Pt's mother called to let you know pt was seen today in the office. Pt forgot to tell you about theyeast infection under both breasts and stomach folds. Mother reports the areas are raw. Requesting something be called in for pt. Please advise Mother. Ángela Villa LPN documented in this encounterK[facility]04-[facility]-2024 Telephone encounter Note * Telephone Encounter - Daniel Tan MD - 08/11/2023 3:41 PM EDT OK for Nystatin powder as ordered Daniel Tan MD [facility]04-23-2024 Telephone encounter Note* Telephone Encounter - Ángela Villa LPN - 08/11/2023 3:18 PM EDT Pt's mother called to let you know pt was seen today in the office. Pt forgot to tell you about theyeast infection under both breasts and stomach folds. Mother reports the areas are raw. Requesting something be called in for pt. Please advise Mother. Ángela Villa LPN [facility]04-23-2024 History of Present illness Narrative* Daniel Tan MD - 08/11/2023 1:40 PM EDT Chief Complaint Patient presents with: cough and congestion: continued HPI Maria Del Rosario Laws is a 43 year old female who presents here today for cough and congestion. Pt c/o cough, head and chest congestion, coughing up brown phlegm, SOB, sore throat, ear pain. Sx started about 1-2 weeks ago. She states she feels like she could be fevered at times but doesn't haveany way to check her temp at home. Pt has been seen or treated every month since the beginning of the year with the same complaint of symptoms. Pt was last seen by Idalia Lewis CNP on 07/08/23 due to the same symptoms. She has been treated with tessalon perles, 2 x with Augmentin, albuterol inhalers, prednisone. She was given Nasacort and referred to ENT due to recurrent symptoms. Pt states that her sx improving when she on medication but then the sx return. She was not able to get the Nasacort as pharmacy didn't have it so has not been using that. She also did not see any ENT as recommended at last visit with Idalia Lewis. Past medical history, appointments, medications, allergies reviewed. [...] Father Seizures Father Seizures Brother Heart Sister GA Heart Sister Seizures Sister Young Diabetes Maternal [...] on File Prior to Visit Medication Sig benztropine (COGENTIN) 1 mg tablet TAKE 1 & 1/2 (ONE AND ONE-HALF) TABLETS BY MOUTH IN THE MORNING and ONE TABLET AT BEDTIME metoprolol succinate ER (TOPROL XL) 25 mg 24 hr tablet Take 1 tablet by mouth once daily. triamcinolone acetonide (NASACORT) 55 mcg nasal inhaler Use 1 [place] in the nose once daily. (Patient not taking: Reported on 07/28/2023) cyclobenzaprine (FLEXERIL) 10 mg tablet Take 1 tablet by mouth three times a day as needed for muscle spasm. benzonatate (TESSALON PERLE) 100 mg capsule Take 1 capsule by mouth three times a day as needed. albuterol HFA (VENTOLIN HFA) 90 mcg/actuation inhaler Inhale 2 Puffs as instructed every 4 hours asneeded for wheezing/shortness of breath. montelukast (SINGULAIR) 10 mg tablet Take 1 tablet by mouth daily at bedtime. ibuprofen (MOTRIN) 600 mg tablet Take 1 tablet by mouth every 6 hours as needed for pain. (Patient not taking: Reported on 07/28/2023) cetirizine (ZYRTEC) 10 mg tablet Take 1 tablet by mouth once daily. citalopram (CELEXA) 20 mg tablet 20 mg once daily. 1 tablet daily zonisamide (ZONEGRAN) 100 mg capsule Take 100 mg by mouth once daily. 2 capsules by mouth twice daily levETIRAcetam (KEPPRA) 750 mg tablet Take 1,000 mg by mouth two times a day. Norethindrone, Contraceptive, (ORTHO MICRONOR) 0.35 mg tablet Take 1 tablet by mouth once daily. (Patient not taking: Reported on 07/28/2023) iloperidone (FANAPT) 4 mg tab Take 1 [...] use: No Drug use: No EXAM: BP 128/78 Pulse 76 Temp 36.4 C (97.5 F) (Tympanic) Resp 18 Wt (!) 147.6 kg (325 lb 8 oz) LMP 06/17/2023 (Approximate) SpO2 100% BMI 58.40 kg/m General Appearance: Well appearing, alert, in no acute distress, well-hydrated, well nourished. andMorbidly obese. Ears: External ears normal, canals clear. Oropharynx: Lips, mucosa, and tongue normal, teeth and gums normal, oropharynx normal. Neck: Supple, no adenopathy; thyroid symmetric, normal size. Lungs: Lungs clear to auscultation. No wheezing, rhonchi, rales.. Heart: RRR without murmur, gallop, or rubs. No ectopy. Health Maintenance List Pneumococcal Vaccine(1 of 2 - PCV) Never done Spirometry Never done Mammogram Screening Never done Behavioral Health Screening Never done Pap Testing due on 06/03/2023 HPV Testing due on 06/03/2023 Hepatitis B Vaccine(1 of 3 - 19+ 3-dose series) due on 12/25/2023 Hepatitis C Screening due on 12/25/2023 Covid-19 Vaccine( - season) due on 12/25/2023 Influenza Vaccine(Season Ended) due on 12/20/2023 Annual PCP Team Chronic Disease Visit due on 07/07/2024 DTaP,Tdap,Td Vaccine(2 - Td or Tdap) due on 06/03/2028 HIV Screening Completed HPV Vaccine Aged Out Data reviewed None ASSESSMENT/PLAN: 1. Acute non-recurrent sinusitis, unspecified location - ICD9: 461.9, ICD10: J01.90 (primary diagnosis) - Will begin treatment with Augmentin for 14 days - Supportive care with plenty of fluids, rest, and analgesia prn. 2. Acute bronchitis, unspecified organism - ICD9: 466.0, ICD10: J20.9 Start Augmentin for 14 days; considered Levaquin but had drug interactions Continue with symptomatic tx 3. Cough, unspecified type - ICD9: 786.2, ICD10: R05.9 - BENZONATATE 100 MG CAPSULE 4. Moderate persistent asthma with acute exacerbation - ICD9: 493.92, ICD10: J45.41 - ALBUTEROL SULFATE HFA 90 MCG/ACTUATION AEROSOL INHALER 5. Non-recurrent acute suppurative otitis media of right ear without spontaneous rupture of tympanic membrane - ICD9: 382.00, ICD10: H66.001 - AMOXICILLIN 875 MG-POTASSIUM CLAVULANATE 125 MG TABLET 6. Delusional disorder (HCC) - ICD9: 297.1, ICD10: F22 7. Seizure disorder (HCC) - ICD9: 345.90, ICD10: G40.909 8. Hyperprolactinemia (HCC) - ICD9: 253.1, ICD10: E22.1 Follow up as needed or if sx do not improve I agree with the Chief Complaint, ROS, and Past Histories independently gathered by the clinical technical support agent and the remaining scribed note accurately describes my personal service to the patient. Medical Decision Making: Problems: Low: Acute, uncomplicated illness or injury Risk: Moderate: Drug management Medical Decision Making Level: 3 - Low Daniel Tan MD The documentation for this note was completed by Mariana Gamez MA acting as scribe for Daniel Tan MD. August 11, 2023 1:38 PM. Mariana Gamez MA documented in this encounterK[facility]04-[facility]-2024 Miscellaneous Notes* Telephone Encounter - Jessi Tello MSW - 08/03/2023 1:43 PM EDT See [place] response to ONEIDA consult on Dr. Tan telephone note 07/29/23. documented in this encounterK[facility]04-[facility]-2024 Miscellaneous Notes* Telephone Encounter - Jessi Tello MSW - 07/30/2023 10:22 AM EDT This Sw called and spoke with patient mother regarding concern for someone to take and attend medical appt with patient. Oneida noted that the only time [facility] has been aware of someone attending appt with patient would be a case management manager from a mental health agency. [facility] is not aware of any resource that drives patient to medical appt and assists them in to appt andattend appt with them. Kennedi notes that patient concern stems from past experience where her transportation through her insurance took patient to her appt and then did not come back to pick her up. Sw and Kennedi discussed for patient and mother to reach out to [employer] risk and insurance consultant and see if they have any resource option to help with patient attend medical appt. Sw also noted to let them know of previous past experience of ride not picking patient back up from appt. Kennedi notes that she and patient will sit down and call insurance to speak with child care center assistant director and see if they have any resource help for taking and having someone attend appt with patient. * Telephone Encounter - Daniel Tan MD - 07/30/2023 8:19 AM EDT Social work consult ordered Daniel Tan MD * Telephone Encounter - Queta Garcia RN - 07/29/2023 4:38 PM EDT Patient's mother calls back and states that patient does not need someone to come and help her withshowers. Patient's sister is going to do that. Mother states that she does needs someone to go to appointments with her. See Message Below. Please review and advise, Queta Garcia RN * Telephone Encounter - Ángela Villa LPN - 07/29/2023 11:52 AM EDT Pt's mother Kennedi calling to see who she can contact to get help with Maria Del Rosario on the followin)pt needs help with getting showers every day 2)helping to treat pt's yeast infection on stomach 3)go with pt to apts because she gets lost and gets confused. Mother is in a wheel chair and cannot help pt. Please advise mother. Ángela Villa LPN documented in this encounterK[facility]04-[facility]-2024 History of Present illness Narrative* Justine Pitts MD - 07/28/2023 1:49 PM EDT [employer] Registrar offered: Patient declines. Maria Del Rosario Laws is a 43 year old female who presents for pelvic pain for several months.. HPI: LMP in May. States is was heavy and care given was concerned that she went through an excessive number of pads. However with further questioning she is using the pads for bladder leaking and changing every time she uses the restroom. Per sister who is present she uses the restroom very frequently. Complains of shooting pains in pelvis. Also drinks a lot of water. Unsure if she has been screened for DM. (A1C in EPIC is 5.5, 12/24/22) Mom and sister had issues with bladder prolapse. Patient is a poor history due to long hx of seizures. Sister would like a consult with urology. Asked fora urine sample today but patient was unable to provide one. She may need a straight cath to obtain an appropriate sample. OB History T0 L0 SAB2 IAB0 Ectopic0 Multiple0 Live Births0 Sack Keeper History LMP: 06/17/2023 (Approximate), None Age at Menarche: Age at First : Age at Menopause: Sack Keeper History Comments: Sexual Activity: Not Currently; Male Contraception: No contraception data on record PAST MEDICAL HISTORY Diagnosis Date Abnormal result [...] STRESS TEST 03/10/2019 STRESS TEST 02/13/2022 FAMILY HISTORY Problem Relation Age of Onset Asthma Mother other (Reflux) Mother other (angina) Mother Heart Father Seizures Father Seizures Brother Heart Sister GA Heart Sister Seizures Sister Young Diabetes Maternal Grandmother Stroke Maternal Grandmother other (hypoglycemia) Maternal Grandfather Social History Tobacco Use Smoking status: Never Smokeless tobacco: Never Substance Use Topics Alcohol use: No Drug use: No Current Outpatient Medications Medication Sig metoprolol succinate ER (TOPROL XL) 25 mg 24 hr tablet Take 1 tablet by mouth once daily. cyclobenzaprine (FLEXERIL) 10 mg tablet Take 1 tablet by mouth three times a day as needed for muscle spasm. benzonatate (TESSALON PERLE) 100 mg capsule Take 1 capsule by mouth three times a day as needed. albuterol HFA (VENTOLIN HFA) 90 mcg/actuation inhaler Inhale 2 Puffs as instructed every 4 hours asneeded for wheezing/shortness of breath. montelukast (SINGULAIR) 10 [...] daily levETIRAcetam (KEPPRA) 750 mg tablet Take 1,000 mg by mouth two times a day. iloperidone (FANAPT) 4 mg tab Take 1 tablet by mouth daily at bedtime. topiramate (TOPAMAX) 200 mg tablet Take 2 tablets by mouth twice daily. lacosamide (VIMPAT) 200 mg tab Take 2 tablets by mouth twice daily. therapeutic multivitamin ORAL Tab Take one(1) tablet daily. benztropine (COGENTIN) 1 mg tablet TAKE 1 & 1/2 (ONE AND ONE-HALF) TABLETS BY MOUTH IN THE MORNING and ONE TABLET AT BEDTIME triamcinolone acetonide (NASACORT) 55 mcg nasal inhaler Use 1 [place] in the nose once daily. (Patient not taking: Reported on 07/28/2023) ibuprofen (MOTRIN) 600 mg tablet Take 1 tablet by mouth every 6 hours as needed for pain. (Patient not taking: Reported on 07/28/2023) Norethindrone, Contraceptive, (ORTHO MICRONOR) 0.35 mg tablet Take 1 tablet by mouth once daily. (Patient not taking: Reported on 07/28/2023) No current facility-administered medications for this visit. Allergies As of Date: 07/28/2023 Allergen Noted Reaction DAYQUIL LIQUICAPS [[id number]-P*09/27/2012 Other: See Comments ARITHROMYCIN [AZITHROMYCIN] 10/27/2012 GI Upset DOXYCYCLINE 07/22/2008 GI Upset LATEX 08/21/2005 Rash MUCINEX DM [DEXTROMETHORPHAN-GUAI*02/12/2009 Intolerance RISPERDAL [RISPERIDONE] 09/28/2012 Other: See Comments STRAWBERRIES 11/10/2016 Hives TAMIFLU [OSELTAMIVIR PHOSPHATE] 05/17/2012 Other: See Comments TOPIRAMATE 06/04/2012 Other: See Comments BEXTRA [VALDECOXIB] 12/30/2004 Rash CEPHALEXIN 12/30/2004 Intolerance Fully Assessed 07/28/2023 REVIEW OF SYSTEMS Abdomen: No bloating, early satiety, indigestion, or increased flatulence. No abdominal pain, nausea, vomiting, diarrhea, or constipation. Bladder: increased frequency and pelvic pain, leaking urine. Breast: No breast lumps, nipple d/c, overlying skin changes, redness or skin retraction. Expanded ROS: N/A Allergies and current medication updated:Yes EXAM: BP 120/64 Wt 326 lb 6.4 oz (148.1kg) LMP 06/17/2023 GENERAL: pleasant, female in no apparent distress HEENT: Normocephalic, atraumatic, mucus membranes moist, and no lesions NECK: full range of motion CHEST: Normal inspiratory effort ABDOMEN: Deferred PELVIC: deferred BIMANUAL: deferred NEURO: diminished mental capacity EXTREMITIES: normal ASSESSMENT AND PLAN: Encounter Diagnosis ICD-10-CM 1. Urinary frequency R35.0 2. Urinary incontinence, unspecified type R32 3. Pelvic pain in female R10.2 Unable to obtain urine sample Request urology consult for incontinence and urinary frequency Justine Pitts MD documented in this encounterK[facility]04-08-2024 Instructions* Patient Instructions* Wilmer Murillo MD - 07/27/2023 1:07 PM EDT We are starting you on Metoprolol Succinate 25 mg once per day We are scheduling you for a coronary CT scan documented in this encounterKet[facility]04-08-2024 History of Present illness Narrative* Wilmer Murillo MD - 07/27/2023 1:00 PM EDT Images from the original note were not included. [facility] [address] [id number] OUTPATIENT VISIT DATE 07/27/2023 PRIMARY CARE PHYSICIAN: Daniel Tan [address] [place] [address] REFERRING PHYSICIAN: Cresencio Carrero MD ([facility]) [address] [place] [id number] CHIEF COMPLAINT: Chest pain HISTORY OF PRESENT ILLNESS: Ms. Laws is a 42 year old woman with multiple medical problems she has had a long history of chest pain syndrome. Most recent evaluation was in the fall 2021 at which time she had a normal echocardiogram and a relatively normal nuclear stress test. She tells me she gets chest pain intermittently throughout the day. It occurs at rest and usually last for minutes to 10 to 15 minutes. She reports shegets released that she presses on her left chest and holds firmly for a few minutes. Her functionalcapacity is severely limited due to arthritis and obesity. She is mostly sedentary throughout the day. Her sister accompanied to the office visit. She has not had apparent symptoms consistent with CHF including PND, orthopnea, or lower extremity edema. PAST MEDICAL HISTORY Diagnosis Date Abnormal result [...] back STRESS TEST 03/10/2019 STRESS TEST 02/13/2022 SOCIAL HISTORY Social History Tobacco Use Smoking status: Never Smokeless tobacco: Never Substance Use Topics Alcohol use: No Drug use: No FAMILY HISTORY Problem Relation Age of Onset Asthma Mother other (Reflux) Mother other (angina) Mother Heart Father Seizures Father Seizures Brother Heart Sister GA Heart Sister Seizures Sister Young Diabetes Maternal Grandmother Stroke Maternal Grandmother other (hypoglycemia) Maternal Grandfather ALLERGIES: ALLERGIES Allergen Reactions Dayquil Liquicaps [* Other: [...] [Valdecoxib] Rash Cephalexin Intolerance Amoxil is ok MEDICATIONS: triamcinolone acetonide (NASACORT) 55 mcg nasal inhaler Use 1 [place] in the nose once daily. cyclobenzaprine (FLEXERIL) 10 mg tablet Take 1 tablet by mouth three times a day as needed for muscle spasm. benzonatate (TESSALON PERLE) 100 mg capsule Take 1 capsule by mouth three times a day as needed. albuterol HFA (VENTOLIN HFA) 90 mcg/actuation inhaler Inhale 2 Puffs as instructed every 4 hours asneeded for wheezing/shortness of breath. montelukast (SINGULAIR) 10 [...] daily levETIRAcetam (KEPPRA) 750 mg tablet Take 1,000 mg by mouth two times a day. Norethindrone, Contraceptive, (ORTHO MICRONOR) 0.35 mg tablet Take 1 tablet by mouth once daily. iloperidone (FANAPT) 4 mg tab Take 1 tablet by mouth daily at bedtime. topiramate (TOPAMAX) 200 mg tablet Take 2 tablets by mouth twice daily. lacosamide (VIMPAT) 200 mg tab Take 2 tablets by mouth twice daily. therapeutic multivitamin ORAL Tab Take one(1) tablet daily. REVIEW OF SYSTEMS: Review of Systems Constitutional: Negative for chills, fever, malaise/fatigue and weight loss. HENT: Negative for hearing loss and sore throat. Eyes: Negative for blurred vision and double vision. Respiratory: Negative. Cardiovascular: Positive for chest pain. Negative for palpitations, orthopnea, claudication, leg swelling and PND. Gastrointestinal: Negative. Genitourinary: Negative for dysuria, frequency, hematuria and urgency. Musculoskeletal: Negative. Skin: Negative. Neurological: Negative for dizziness, seizures, loss of consciousness, weakness and headaches. Endo/Heme/Allergies: Negative for environmental allergies. Does not bruise/bleed easily. Psychiatric/Behavioral: Negative for depression. PHYSICAL EXAMINATION: BP 124/80 Pulse 87 Wt 325 lb (147.4kg) SpO2 98% LMP 05/21/2022 General: Morbidly obese woman sitting appears comfortable no apparent distress. HEENT: Carotid upstrokes are brisk without bruits no JVD appreciated. Pulmonary: Lungs are clear no rales, wheezes, rhonchi Cardiovascular: Normal S1, S2 with regular rate and rhythm. No murmurs, rubs, or gallops appreciated. CARDIOVASCULAR MEDICINE TESTING: Regadenosine Cardiolite stress 02/13/2022: Rest and stress SPECT current nuclear imaging demonstrate myocardial perfusion changes in the mid to distal anterior, anteroseptal, and anterolateral segments which are somewhat more prominent at rest and stress and also somewhat more prominent at stress versus rest potentially compatible with shifting soft tissue attenuation artifact. However, an element of stress-induced myocardial ischemia cannot necessarily be excluded. Gated Cardiolite study reports an LVEF of 80% Echocardiogram 02/13/2022: Grossly normal left ventricular size, wall motion, and systolic function. Estimated EF 60% Trivial mitral valve insufficiency Trivial tricuspid valve insufficiency Trivial aortic valve insufficiency I have personally reviewed the Electrocardiogram, Echocardiogram, and Stress Test: Nuclear (Non-PET). IMPRESSION: Ms. Laws is a 43 year old woman with extensive medical history including childhood seizures who presents for evaluation of chest pain. It is difficult to evaluate her chest pain syndrome. It does not sound cardiac in nature. She has a few risk factors which include obesity and mild dyslipidemia. PLAN AND RECOMMENDATIONS: 1. Other chest pain - ICD9: 786.59, ICD10: R07.89 (primary diagnosis) Will try to obtain a coronary CTA for further delineation of coronary disease. I placed her on metoprolol to see if this helps with her chest pain syndrome. Could consider addition of Imdur. Will make further recommendations after coronary CTA is completed. - METOPROLOL SUCCINATE ER 25 MG TABLET,EXTENDED RELEASE 24 HR - CTA CORONARY W IVCON 2. Abnormal nuclear cardiac imaging test - ICD9: 794.39, ICD10: R93.1 - METOPROLOL SUCCINATE ER 25 MG TABLET,EXTENDED RELEASE 24 HR - CTA CORONARY W IVCON Wilmer Murillo MD documented in this encounterK[facility]04-03-2024 Miscellaneous Notes* Telephone Encounter - Idalia Johnston - 07/22/2023 12:17 PM EDT Patient's mother returned call and scheduled 07/27/23. * Telephone Encounter - Tala Gunn - 07/21/2023 10:59 AM EDT 1st attempt left message to return call to r/s missed cardiology appointment and place on wait listfor now. * Telephone Encounter - Idalia Johnston - 07/17/2023 9:43 AM EDT Patient was unable to attend new patient evaluation with [facility] cardiology due to having to care for her hospitalized mother. Mother is requesting to have patient rescheduled. Schedulers unable to obtain availability. Please notify patient's Mother, Kennedi Laws, to discuss plan of care. documented in this encounterK[facility]03-20-2024 Discharge summary Author Kevin Montero [facility] July 08, 2023 7:51pm Note Date/Time July 08, 2023 4:5 3pm [facility] Medical Records Department [address] [place] [address] Emergency Department Summary 07/08/23 MR#: [id number] Acct: [id number] Name: MARIA DEL ROSARIO LAWS Rep #:[id number] : 1980 42 From: Kevin Montero MD PCP: Dr. Daniel Tan MD Status:RE G ER Location: ED HPI History of Present Illness Chief Complaint: Seizure Detail of Chief Complaint: Reported seizure yesterday and today Informant: patient Onset/Context/Timing Onset: Today and Yesterday Context: Sudden Onset Timing: Intermittent Quality: Witnessed event today at [place] [employer] unwitnessed yesterday Current Severity: Gone Maximum Severity: Moderate Worsened by: Potentially standing for prolonged period of time today Relieved by: Not applicable Associated Symptoms Associated Symptoms: nausea, diaphoresis, pallor no postictal state Narrative Narrative: Patient is a 42-year-old woman with known history of seizures. She is on multiple anticonvulsant meds. She states she is compliant. The nurse informed that she was considering reducing her pets. She was questioning if she has and she stated no. Patient had an unwitnessed presumed seizure event yesterday. She states she felt warm apparently felt sweaty and nauseous prior to blacking out . Patient states she had been sitting for prolonged period of time. Therewas no incontinence of urine or stool. She did not bite her tongue. She not have a headache. Today's episode occurred at [place]. She was standing for prolonged period time she apparently was noted to be pale and diaphoretic. She felt that her vision became black she felt nauseous and warm. There was no incontinence. There was no postictal state per witnesses at [place]. Her history is limited because she is cognitively impaired. She presently denies headache. Denies double vision, blurred vision loss of vision. Denies ringing or ears decreased hearing. Denies trouble with speech or swallowing. She denies neck pain. She denies paresthesia, anesthesia or motor weakness in her upper or lower extremity. She denies abdominal pain. Shedenies vomiting or diarrhea. Denies black or maroon-colored stool. She denies dysuria, frequency, urgency or hematuria. Patient states this has been happening recently. She has not followed up with her neurologist. She has never had a table tilt test. Prior similar symptoms: No Recent Illness/Hospitalization: Yes [facility] Medical History Abnormal stress test Acute bilateral otitis media Acute bronchitis Adjustment disorder with depressed mood Chest pain Chronic factitious illness with physical symptoms Conversion disorder Dyspnea on exertion Generalized seizure disorder GERD (gastroesophageal reflux disease) History of asthma History of mental retardation Myalgia and myositis PCOS (polycystic ovarian syndrome) PND (paroxysmal nocturnal dyspnea) Schizophrenia Seizure Home Medications cetirizine 10 mg tablet 10 mg PO DAILY 02/11/19 [History Last Taken Unknown] iloperidone 4 mg tablet 4 mg PO QHS BIPOLAR 02/11/19 [History Last Taken 06/02/19] lacosamide 200 mg tablet 400 mg PO BID SEIZURES 02/11/19 [History Last Taken 06/03/19] multivitamin 1 tab PO DAILY 02/11/19 [History Last Taken 06/03/19] topiramate 200 mg tablet (Topamax) 400 mg PO BID SEIZURES 02/11/19 [History Last Taken 06/03/19] citalopram 20 mg tablet 20 mg PO DAILY 02/23/19 [History Last Taken 06/03/19] albuterol sulfate 90 mcg/actuation aerosol inhaler 2 puff inhalation Q4H PRN PRNWheezing ##1 05/07/19 [Rx Last Taken 05/29/19] paliperidone palmitate 234 mg/1.5 mL intramuscular syringe 234 mg IM QMONTH 06/03/19 [History Last Taken 05/25/19] ibuprofen 600 mg tablet 600 mg PO Q6H PRN PRN Pain 1-10 Or Fever #20 tabs 06/16/20 [Rx Last Taken Unknown] benztropine 1 mg tablet 1 mg PO .COMPLEX 01/30/22 [History Last Taken Unknown] levetiracetam 500 mg tablet 750 mg PO BID 01/30/22 [History Last Taken Unknown] montelukast 10 mg tablet 10 mg PO DAILY 01/30/22 [History Last Taken Unknown] zonisamide 100 mg capsule 200 mg PO BID 01/30/22 [History Last Taken Unknown] benzonatate 100 mg capsule 200 mg (2 x 100 mg) PO TID PRN cough #30 caps 02/11/22 [Rx Last Taken Unknown] ibuprofen 200 mg capsule 200 mg PO Q6H PRN pain #30 caps 02/11/22 [Rx Last Taken Unknown] Allergy/AdvReac Type Severity Reaction Status Date / Time chlorpheniramine Allergy Intermediate seizure Verified 07/08/23 15:50 [From Vicks DayQuil] dextromethorphan Allergy Intermediate seizure Verified 07/08/23 15:50 [From Vicks DayQuil] phenylpropanolamine Allergy Intermediate seizure Verified 07/08/23 15:50 [From Vicks DayQuil] pseudoephedrine Allergy Intermediate seizure Verified 07/08/23 15:50 [From Vicks DayQuil] azithromycin Allergy Other Verified 07/08/23 15:50 [From Zithromax Z-Johnny] cephalexin Allergy Unknown Verified 07/08/23 15:50 doxycycline Allergy Nausea Verified 07/08/23 15:50 guaifenesin [From Mucinex] Allergy Other Verified 07/08/23 15:50 latex Allergy Rash Verified 07/08/23 15:50 oseltamivir [From Tamiflu] Allergy Unknown Verified 07/08/23 15:50 risperidone [From Risperdal] Allergy Other Verified 07/08/23 15:50 strawberry Allergy Hives Verified 07/08/23 15:50 valdecoxib [From Bextra] Allergy Rash Verified 07/08/23 15:50 Family History Mother Asthma Father Heart disease Seizures Brother Seizures Sister Myocardial infarction Heart disease Seizures Grandmother Diabetes CVA (cerebral vascular accident) Social History Smoking Status: Never smoker alcohol intake: never substance use type: does not use caffeine: Yes Type: carbonated beverages ROS ROS ED Constitutional Constitutional ED: Denies chills, fever(s), subjective, sweats or weight loss Eyes Eyes: Denies blurry vision, change in vision or diplopia ENT ENT ED: Denies ear pain, rhinorrhea or sore throat Cardiovascular Cardiovascular: Denies chest pain, orthopnea, palpitations, paroxysmal nocturnaldyspnea or racing heartbeat Respiratory/Chest Respiratory/Chest: Denies cough, dyspnea, dyspnea on exertion, orthopnea or paroxysmal nocturnal dyspnea Gastrointestinal Gastrointestinal: Reports nausea; Denies abdominal pain, diarrhea, melena or vomiting Genitourinary Genitourinary ED: Denies dysuria, hematuria or urinary frequency Musculoskeletal Musculoskeletal: Denies arthralgias or myalgias Integumentary Denies rash Neurologic Neurologic: Denies headache(s) or paresthesias Psychiatric Psychiatric: Reports depression; Denies anxiety Hematologic/Lymphatic Hematologic/Lymphatic: Reports systems reviewed and no addt'l complaints, exceptas documented EXAM Physical Exam Const Vital Signs: 07/08/23 15:51 07/08/23 18:00 07/08/23 18:16 Temperature 98 F Temperature Source Oral Pulse Rate 88 83 92 Pulse Rate [Lying] Pulse Rate [Sitting (for 1 minute prior to obtaining)] Pulse Rate [Standing (for 1 minute prior to obtaining)] Respiratory Rate 18 18 28 H Blood Pressure 125/87 H 116/76 117/79 Blood Pressure [Lying] Blood Pressure [Sitting (for 1 minute prior to obtaining)] Blood Pressure [Standing (for 1 minute prior to obtaining)] Blood Pressure Mean 99 89 91 Blood Pressure Mean [Lying] Blood Pressure Mean [Sitting (for 1 minute prior to obtaining)] Blood Pressure Mean [Standing (for 1 minute prior to obtaining)] Pulse Ox 97 95 98 Oxygen Delivery Method Room Air Room Air Room Air 07/08/23 18:51 Temperature Temperature Source Pulse Rate Pulse Rate [Lying] 89 Pulse Rate [Sitting (for 1 minute prior to obtaining)] 90 Pulse Rate [Standing (for 1 minute prior to obtaining)] 81 Respiratory Rate Blood Pressure Blood Pressure [Lying] 117/79 Blood Pressure [Sitting (for 1 minute prior to obtaining)] 132/86 H Blood Pressure [Standing (for 1 minute prior to obtaining)] 132/89 H Blood Pressure Mean Blood Pressure Mean [Lying] 91 Blood Pressure Mean [Sitting (for 1 minute prior to obtaining)] 101 Blood Pressure Mean [Standing (for 1 minute prior to obtaining)] 103 Pulse Ox Oxygen Delivery Method Positive well nourished, well developed and obese Constitutional Narrative: Patient's BMI is 55. She is not well-groomed. General Appearance ED: well developed and NAD; Negative for cyanotic or diaphoretic Nutritional Appearance: obese HEENT Reports moist mucous membranes HEENT Narrative: Head is atraumatic and normocephalic. Ears normal. External auditory canal normal. TMs normal. Nares patent. Uvula midline. Posterior pharynx is normal. There is no deviation with protrusion. Eyes PERRL and EOMs intact bilaterally General Eye ED: Negative for pale conjunctiva or scleral icterus Neck no lymphadenopathy, supple and no JVD Chest Wall inspection of chest normal and palpation of chest normal Resp normal respiratory effort and clear to auscultation bilaterally Cardio regular rate, regular rhythm, S1 normal heart sound, S2 normal heart sound and no murmurs GI normal to inspection, nondistended, normoactive bowel sounds, non-tender, non-distended and no masses GI Narrative: Unable to determine patient has hepatosplenomegaly or mass due to body habitus. Palpation: soft Back/Spine Back/Spine Narrative: Inspection of the back is normal. There is no evidence of trauma. Extremity normal to inspection General Extremety ED: Yes edema; Negative for tenderness General Extremity: edema Neuro oriented x3, CN's II-XII intact bilaterally and no sensory deficits noted Neuro Narrative: Gait was observed and normal. There is no dysmetria. There is no clonus or Babinski sign. Sensorium / Orientation: alert Psych Mood & Affect: depressed Skin no rashes or lesions noted, no wounds and skin turgor normal General Skin Exam: elasticity normal; Negative for jaundice MDM MDM MDM Narrative Medical decision making narrative: Based on the fact per witnesses that she was pale, diaphoretic complained of nausea warmth and had no postictal state suspect patient had a vasovagal syncopal spell. This would be her second and 24 hours. She appears had other episodes that she thought was seizures that may have represented a vasovagal syncopal episode. If workup is negative we will contact Dr. Hamlin who is on-call for cardiology for possible outpatient table tilt test after his evaluation. History & Record Review Additional record(s) reviewed:: Prior inpatient record (Seen by cardiology for chest pain, Dr. Jacobs), Prior outpatient record (Outpatient pulmonary visit by Dr. Camarillo and [facility] February 17, 2023 and April 2023. She was seen for hypersomnolence.), Prior ED visit (Seen for breakthrough seizure September 18, 2022.) and Prior labs Lab Data Labs: Laboratory Results - last 24 hr 07/08/23 07/08/23 07/08/23 16:30 16:30 17:46 WBC Cancelled 10.6 Corrected WBC Cancelled RBC Cancelled 4.71 Hgb Cancelled 13.6 Hct Cancelled 43.5 MCV Cancelled 92.4 MCH Cancelled 28.9 MCHC Cancelled 31.3 L RDW Std Deviation Cancelled 45.5 H RDW Coeff of Zahra Cancelled 13.3 Plt Count Cancelled 272 MPV Cancelled 10.0 Immature Gran % (Auto) Cancelled 0.500 Neut % (Auto) Cancelled 73.9 H Lymph % (Auto) Cancelled 16.9 L Upton % (Auto) Cancelled 8.5 Eos % (Auto) Cancelled 0.0 Baso % (Auto) Cancelled 0.2 Absolute Neuts (auto) Cancelled 7.8 H Absolute Lymphs (auto) Cancelled 1.79 Total Counted Cancelled Neutrophils % (Manual) Cancelled Band Neutrophils % Cancelled Lymphocytes % (Manual) Cancelled Monocytes % (Manual) Cancelled Eosinophils % (Manual) Cancelled Basophils % (Manual) Cancelled Metamyelocytes % Cancelled Myelocytes % Cancelled Promyelocytes % Cancelled Blast Cells % Cancelled Plasma Cell % (Manual) Cancelled Other Cells % Cancelled Nucleated RBC % Cancelled 0 Nucleated RBCs/100 WBC Cancelled Differential Comment Cancelled Diff Path Review Cancelled Hypersegmented Neuts Cancelled Atypical Lymphocytes Cancelled Reactive Lymphocytes Cancelled Smudge Cells Cancelled Toxic Granulation Cancelled Toxic Vacuolation Cancelled Dohle Bodies Cancelled Shantel Rods Cancelled Platelet Estimate Cancelled Plt Morphology Comment Cancelled RBC Morphology Cancelled Cancelled Polychromasia Cancelled Hypochromasia Cancelled Basophilic Stippling Cancelled Anisocytosis Cancelled Microcytosis Cancelled Macrocytosis Cancelled Spherocytes Cancelled Sickle Cells Cancelled Target Cells Cancelled Tear Drop Cells Cancelled Ovalocytes Cancelled Stomatocytes Cancelled Guerra-Winfred Bodies Cancelled [place]verford Cells Cancelled Bite Cells Cancelled Crenated Cell Cancelled Acanthocytes (Spur) Cancelled Rouleaux Cancelled Schistocytes Cancelled Sodium Cancelled 140 Potassium Cancelled 3.9 Chloride Cancelled 114 H Carbon Dioxide Cancelled 20.0 L Anion Gap Cancelled 6 BUN Cancelled 8 Creatinine Cancelled 0.95 Estim Creat Clear Calc Cancelled 117.01 Est GFR (MDRD) Af Amer Cancelled 83 Est GFR (MDRD) Non-Af Cancelled 69 BUN/Creatinine Ratio Cancelled 8.4 L Glucose Cancelled 95 Calcium Cancelled 8.8 Total Bilirubin Cancelled 0.30 AST Cancelled 18 ALT Cancelled 18 Alkaline Phosphatase Cancelled 95 Total Protein Cancelled 7.1 Albumin Cancelled 3.2 Globulin Cancelled 3.9 Albumin/Globulin Ratio Cancelled 0.8 L Valproic Acid Cancelled < 3 L Pelvic acid level was nondetectable. Med list was changed after mother called in. She is not on valproic acid and would explain why it is nondetected. Management Discussion w/another healthcare provider: Branch Controller (Since patient had 2 syncopal spells in the last 24 hours and suspect these are vasovagal in his headreport other episodes that were not brought to the attention of healthcare professional will contact Dr. Hamlin for follow-up and possible table tilt test.) Treatment and Re-Evaluation :: Patient is had no cardiac event during her ED stay. Will notify Dr. Hamlin reasons for follow-up. Will not hold patient's discharge at this time. Discharge Plan Triage Chief Complaint: Seizure ED Provider: Kevin Montero Dx/Rx/DC Orders Clinical Impression: Syncope, vasovagal, History of mental retardation, Generalized seizure disorder, Morbid obesity Instructions: ED Fainting, Uncertain Cause Prescriptions: No Action citalopram 20 mg tablet 20 mg PO DAILY benztropine 1 mg tablet 1 mg PO .COMPLEX Rx Instructions: 1 mg orally 1 and 1/2 tab by mouth in the am and 1 tab by mouth pm; cetirizine 10 mg tablet 10 mg PO DAILY iloperidone 4 mg tablet 4 mg PO QHS topiramate [Topamax] 200 mg tablet 400 mg PO BID Rx Instructions: Must be BRAND name lacosamide 200 mg tablet 400 mg PO BID multivitamin Tablet 1 tab PO DAILY zonisamide 100 mg capsule 200 mg PO BID levetiracetam 500 mg tablet 750 mg PO BID montelukast 10 mg tablet 10 mg PO DAILY benzonatate 100 mg capsule 200 mg PO TID PRN (Reason: cough) Qty: 30 0RF ibuprofen 200 mg capsule 200 mg PO Q6H PRN (Reason: pain) Qty: 30 0RF albuterol sulfate 1 INHALER inhaler 2 puff inhalation Q4H PRN PRN (Reason: Wheezing) Qty: 1 0RF paliperidone palmitate 234 mg/1.5 mL syringe 234 mg IM QMONTH ibuprofen 600 MG tablet 600 mg PO Q6H PRN PRN (Reason: Pain 1-10 Or Fever) Qty: 20 0RF Primary Care Provider: Daniel Tan Referrals: David Rodriguez MD [Med Staff - Active Staff] - 5-7 Days Daniel Tan MD [Primary Care Provider] - Disposition Disposition: Home, Self Care What to do if you have Problems For any increased pain, shortness of breath, bleeding, nausea or vomiting, chestpain, or any unexpected problems, contact your Primary Care Provider. Call [facility] ([phone]) or report to the closest Emergency Room. Call 911 if necessary. 07/08/231950 <Electronically signed by Kevin Montero MD> Cosigner Signature (if applicable): CC: Dr. aDniel Tan MD ~ Signed [facility] Work Phone: [phone]) 791-354603-20-2024 Instructions* Patient Instructions* Idalia Lewis APRN.CNP - 07/08/2023 2:01 PM EDT No signs of bacterial infection Recommend taking Zyrtec daily with Nasacort nasal spray, rinse mouth afterwards Recommend consult with ENT (Ear, Nose, throat). Follow up as needed. documented in this encounterK[facility]03-20-[facility]24 History of Present illness Narrative* Idalia Lewis APRN.CNP - 07/08/2023 1:40 PM EDT This is a 42 year old female who presents today with: Patient presents with: Acute Visit: cough and congestion HISTORY OF PRESENT ILLNESS: Maria Del Rosario Laws is a 42 year old female. Patient presents with: Acute Visit: cough and congestion Here in the office for cough and chest congestion. Started about 1 week ago. Is having post nasal drip. Symptoms seem to come and go for the past several months. Cough is productive, brown mucus. Denies any SOB or wheezing. Unsure if she had a fever. Has not tried any OTC medications. History of Asthma PAST MEDICAL HISTORY: PAST MEDICAL HISTORY Diagnosis [...] 03/10/2019 STRESS TEST 02/13/2022 ALLERGIES Dayquil Liquicaps [Pxyipqskc-De-Au-Acetaminophen], Arithromycin [Azithromycin], Doxycycline, Latex, Mucinex Dm [Dextromethorphan-Guaifenesin], Risperdal [Risperidone], Strawberries, Tamiflu[Oseltamivir Phosphate], Topiramate, Bextra [Valdecoxib], and Cephalexin MEDICATIONS Current Outpatient Medications Medication Sig benzonatate (TESSALON PERLE) 100 mg capsule Take 1 capsule by mouth three times a day as needed. albuterol HFA (VENTOLIN HFA) 90 mcg/actuation inhaler Inhale 2 Puffs as instructed every 4 hours asneeded for wheezing/shortness of breath. montelukast (SINGULAIR) 10 [...] daily levETIRAcetam (KEPPRA) 750 mg tablet Take 1,000 mg by mouth two times a day. Norethindrone, Contraceptive, (ORTHO MICRONOR) 0.35 mg tablet [...] Father Seizures Father Seizures Brother Heart Sister GA Heart Sister Seizures Sister Young Diabetes Maternal Grandmother Stroke Maternal Grandmother other (hypoglycemia) Maternal Grandfather Social History Tobacco Use Smoking status: Never Smokeless tobacco: Never Substance Use Topics Alcohol use: No Drug use: No REVIEW OF SYSTEMS GENERAL: No weight loss, malaise or fevers/chills HEENT: Post nasal drip NECK: Negative for lumps, goiter, pain and [...] or suicidal ideation. EXAM: BP 120/88 Pulse 97 Temp 37.2 C (98.9 F) Resp 20 Wt (!) 148.8 kg (328 lb) LMP 05/21/2022 (Approximate) SpO2 99% BMI 58.85 kg/m PHYSICAL EXAM: General Appearance: Well appearing, [...] tongue normal, teeth and gums normal, oropharynx normal and + Post nasal drip noted. Neck: Supple, no adenopathy; thyroid symmetric, normal size, no bruits. Lungs: Lungs clear to auscultation. No wheezing, rhonchi, rales. Heart: RRR without murmur, gallop, or rubs. No ectopy. Extremities: No deformities, edema, skin discoloration, clubbing or cyanosis. Good capillary refill. Peripheral Pulses: Normal, Capillary refill <2secs, strong peripheral pulses, Pulses palpable. Neurologic: Gait normal. Sensation grossly intact. ASSESSMENT/PLAN: 1. Post-nasal drip - ICD9: 784.91, ICD10: R09.82 (primary diagnosis) - Concerns that her symptoms are more than likely due to post nasal drip and environmental allergies. - Continue on Zyrtec 10 mg daily and add on Nasacort. - Due to chronic history of symptoms recommend consult with ENT. - CONSULT TO ENT - TRIAMCINOLONE ACETONIDE 55 MCG NASAL SPRAY AEROSOL 2. Chronic cough - ICD9: 786.2, ICD10: R05.3 - Same plan as #1. Follow-up if no improvement. Discussed treatment plan and patient voices understanding. Patient's questions answered appropriately. Medications and potential side effects were discussed and patient voices understanding. Idalia Lewis APRN.DIXIE This note was partially generated using [employer]k voice recognition system. Note was reviewed for accuracy. There may be minor misspellings or grammar miscues with [employer] voice recognition. documented in this encounterK[facility]03-19-2024 Miscellaneous Notes* Telephone Encounter - Chaim Garcia APRN.CNP - 07/07/2023 6:00 PM EDT The following approved medication requests have been transmitted electronically. Requested Prescriptions Pending Prescriptions Disp Refills cyclobenzaprine (FLEXERIL) 10 mg tablet 30 tablet 2 Sig: Take 1 tablet by mouth three times a day as needed for muscle spasm. benzonatate (TESSALON PERLE) 100 mg capsule 30 capsule 1 Sig: Take 1 capsule by mouth three times a day as needed. Chaim Garcia APRN.CNP * Telephone Encounter - Ranjana Lal - 07/07/2023 4:48 PM EDT Patient has been identified by name and date of : yes Patient phones for refill(s): Requested Prescriptions Pending Prescriptions Disp Refills cyclobenzaprine (FLEXERIL) 10 mg tablet 30 tablet 2 Sig: Take 1 tablet by mouth three times a day as needed for muscle spasm. benzonatate (TESSALON PERLE) 100 mg capsule 30 capsule 1 Sig: Take 1 capsule by mouth three times a day as needed. Date of last office visit in primary care: 05/27/2023 Date of next office visit in primary care: 07/08/2023 Please advise. Thank you. Ranjana Vale [facility]. documented in this encounterK[facility]02-22-2024 Miscellaneous Notes* Telephone Encounter - Giovana Contreras LPN - 06/11/2023 12:54 PM EST Patient notified of results, verbalizes understanding of instructions. Giovana Contreras LPN * Telephone Encounter - Idalia Lewis APRN.CNP - 06/11/2023 12:48 PM EST Can you please call the patient back and let her know that we treated her for sinus infection last time I saw her with Augmentin. I would like her to complete a chest x-ray if she is having ongoing cough with mucus production. Xray order has been placed. Thank you. Idalia Lewis APRN.CNP * Telephone Encounter - Ángela Villa LPN - 06/11/2023 12:17 PM EST Pt calling to let you know she was seen on 05-27-23 and she is not getting better. Symptoms are a cough, coughing up phlegm brown in color and congested. Asking to have an ATB sent to the pharmacy. Ángela Villa LPN documented in this encounterKet[facility]02-22-2024 Miscellaneous Notes* Telephone Encounter - Daniel Tan MD - 06/11/2023 11:50 AM EST OK to refill as ordered Daniel Tan MD * Telephone Encounter - Opal Alvarez - 06/10/2023 4:22 PM EST Patient has been identified by name and date of : Yes, Provider Idalia Lewis CNP Date 06/10/2023 Time 4:25 pm Patient phones for refill(s): Requested Prescriptions Pending Prescriptions Disp Refills albuterol HFA (VENTOLIN HFA) 90 mcg/actuation inhaler 1 Each 4 Sig: Inhale 2 Puffs as instructed every 4 hours as needed for wheezing/shortness of breath. benzonatate (TESSALON PERLE) 100 mg capsule 30 capsule 1 Sig: Take 1 capsule by mouth three times a day as needed. montelukast (SINGULAIR) 10 mg tablet 90 tablet 3 Sig: Take 1 tablet by mouth daily at bedtime. Date of last office visit in primary care:05/01/2023 and 05/27/2023 Date of next office visit in primary care: Visit date not found Please send RX today if possible as patient is not feeling any better since visit on 05/27/2023 with Idalia Please advise. Thank you. Opal Mccloud. documented in this encounterK[facility]02-07-2024 Instructions* Patient Instructions* Idaila Lewis APRN.CNP - 05/27/2023 9:49 AM EST Start Augmentin, take with food. May use tessalon perles as needed for cough. Stay well hydrated. May continue with Tylenol as needed for pain. Follow up if no improvement. documented in this encounterKettering [facility]02-07-2024 History of Present illness Narrative* Idalia Lewis APRN.CNP - 05/27/2023 9:40 AM EST This is a 42 year old female who presents today with: Patient presents with: Acute Visit: cold and cough HISTORY OF PRESENT ILLNESS: Maria Del Rosario Laws is a 42 year old female. Patient [...] 03/10/2019 STRESS TEST 02/13/2022 ALLERGIES Dayquil Liquicaps [Hnbfytfpp-Wn-Nt-Acetaminophen], Arithromycin [Azithromycin], Doxycycline, Latex, Mucinex Dm [Dextromethorphan-Guaifenesin], Risperdal [Risperidone], Strawberries, Tamiflu[Oseltamivir Phosphate], Topiramate, Bextra [Valdecoxib], and Cephalexin MEDICATIONS [...] 2 Puffs as instructed every 4 hours asneeded for wheezing/shortness of breath. montelukast (SINGULAIR) 10 [...] Father Seizures Father Seizures Brother Heart Sister GA Heart Sister Seizures Sister Young Diabetes Maternal [...] effects were discussed and patient voices understanding. Idalia Lewis APRN.DIXIE This note was partially generated using Spyder Lynk voice recognition system. Note was reviewed for accuracy. There may be minor misspellings or grammar miscues with Spyder Lynk voice recognition. documented in this encounterKet[facility]02-02-2024 Miscellaneous Notes* Telephone Encounter - Daniel Tan MD - 05/22/2023 4:55 PM EST OK to refill as ordered Daniel Tan MD * Telephone Encounter - Jacki Miller - 05/22/2023 4:40 PM EST Patient has been identified by name and [...] Thank you. Jacki Miller. documented in this encounterK[facility]12-05-2023 Miscellaneous Notes* Telephone Encounter - Daniel Tan MD - 03/24/2023 1:30 PM EST OK to refill as ordered Daniel Tan MD * Telephone Encounter - Queta Garcia RN - 03/24/2023 1:09 PM EST Date of last office: 01/30/2023 Date of [...] you. Queta Garcia RN. documented in this encounterKet[facility]11-13-2023 Miscellaneous Notes* Telephone Encounter - Mariana Gamez Ma - 03/02/2023 3:59 PM EST Pt mother and EC Kennedi Laws notified and voiced understanding. Mariana Gamez Ma * Telephone Encounter - Daniel Tan MD - 03/02/2023 3:10 PM EST I would agree with trying to get her into a psychiatrist for evaluation. She would probably have to find a adjunct instructor to help her get guardianship. Daniel Tan MD * Telephone Encounter - Giovana Arias RN - 03/02/2023 10:41 AM EST Pt's mother Kennedi Laws calling to update Dr. Tan on pt's condition. Mother states over the past year that her daughter doesn't want to do anything anymore. She won't eat unless someone makes it for her and helps her eat it. Mother states pt won't take a shower. She just wants to sit in a chair and not do anything. Mother states when they saw Dr. Tan in January, she couldn't talk to Dr. Tan about it while the patient was in the room. Mother very upset and concerned and does not know what to do. She states the patient had been seeing a counselor at the counseling center butthe counselor cancelled an appt on them because [...] patient. Mother wants to know if Dr. Tan has any suggestions and how would she go about getting guardianship for the patient? documented in this encounterKettering [facility]11-10-2023 Procedure [facility]10-23-2023 Miscellaneous Notes* Telephone Encounter - Mariana Gamez Ma - 02/09/2023 9:49 AM EDT Pt mother notified and voiced understanding. Mariana Gamez Ma * Telephone Encounter - Daniel Tan MD - 02/06/2023 5:04 PM EDT I think she is having muscles spasms causing the deformity; I would recommend trying Flexeril as ordered and see if this helps. Daniel Tan MD * Telephone Encounter - Emilee Brady RN - 02/06/2023 4:42 PM EDT Pts mother called and is notified of providers results and instructions. She is asking then what iscausing the large bump on the right side [...] Please call and advise. Emilee Brady RN * Telephone Encounter - Daniel Tan MD - 02/06/2023 4:28 PM EDT Please notify patient that her back Xray just shows minimal scoliosis, not enough that would need any treatment or would be a problem. Daniel Tan MD documented in this encounterKettering [facility]10-16-2023 History of Present illness Narrative* Maria Del Rosario Gray RT(R) - 02/02/2023 2:00 PM EDT Radiology Service Progress Note PATIENT NAME: Maria Del Rosario Laws DATE OF SERVICE: February 02, 2023 TIME: 3:42 PM PATIENT IDENTITY VERIFICATION COMPLETED USING TWO (2) IDENTIFIERS: Name and Date of confirmedby patient verbally. FALL SCREENING: Has the patient [...] 02, 2023 3:42 PM documented in this encounterKettering [facility]10-13-2023 History of Present illness Narrative* Daniel Tan MD - 01/30/2023 2:40 PM EDT Chief Complaint Patient presents with: back issue HPI Maria Del Rosario Laws is a 42 year old female who presents here today for a back issue. Pt here today with her Mother. Pt and mother had to be taken to different exam area due to mother not able to ambulate. Pt's mother noticed that the for the past several months that pt has a deformity in her back fromright side shoulder down to the waist. Her left shoulder is a lot lower then her right shoulder andhas a large lump in the in her [...] Father Seizures Father Seizures Brother Heart Sister GA Heart Sister Seizures Sister Young Diabetes Maternal [...] 2 Puffs as instructed every 4 hours asneeded for wheezing/shortness of breath. cetirizine (ZYRTEC) 10 mg tablet Take 1 tablet by mouth once daily. citalopram (CELEXA) 20 mg tablet 20 mg once daily. 1 tablet daily Fluticasone Furoate (FLONASE SENSIMIST) 27.5 mcg/actuation nasal spray Use 2 Sprays in each nostrilonce daily. ibuprofen (MOTRIN) 600 mg tablet Take [...] BP Cuff Size: Regular Adult) Pulse 82 Resp18 LMP 02/26/2021 General Appearance: Well appearing, alert, in no acute distress, well-hydrated, well nourished. andMorbidly obese. Back:Left shoulder lower than right Lungs: [...] location, unspecified back pain laterality, unspecified chronicity -ICD9: 724.5, ICD10: M54.9 (primary diagnosis) - Complete [...] Past Histories independently gathered by the clinical technical support agent and the remaining scribed note accurately describes my personal service to the patient. Medical Decision Making: Problems: Moderate: New problem with uncertain prognosis Data: Unique test(s) ordered: 1 Risk: Moderate: Drug management Medical Decision Making Level: 4 - Moderate Daniel Tan MD The documentation for this note was completed by Chantel Townsend Ma acting as scribe for Daniel Tan MD. January 30, 2023 3:07 PM. Chantel Townsend Ma documented in this encounterKettering [facility]09-07-2023 Miscellaneous Notes* Telephone Encounter - Mariana Gamez Ma - 12/25/2022 4:14 PM EDT Letter mailed to pt home of results. Mariana Gamez MA * Telephone Encounter - Idalia Lewis APRN.CNP - 12/25/2022 3:49 PM EDT Can you please call the patient and [...] if she has any questions. Thank you. Idalia Lewis APRN.DIXIE documented in this encounterKettering [facility]09-06-2023 Instructions* Patient Instructions* Idalia Lewis APRN.CNP - 12/24/2022 11:47 AM EDT Get fasting [...] Promotion: - Eat healthy -- go to [email or web address] to get started - Have a yearly [...] drive - Wear sunscreen documented in this encounterKettering [facility]09-06-2023 History of Present illness Narrative* Idalia Lewis APRN.CNP - 12/24/2022 11:20 AM EDT This is a 42 year old female who presents today with: Patient presents with: Physical HISTORY OF PRESENT ILLNESS: Maria Del Rosario Laws is a 42 year old female. Patient [...] capsules twice daily. Following with neurology in [place]. Asthma: Taking albuterol as needed, Zyrtec 10 [...] 03/10/2019 STRESS TEST 02/13/2022 ALLERGIES Dayquil Liquicaps [Gifhevacr-Yc-Js-Acetaminophen], Arithromycin [Azithromycin], Doxycycline, Latex, Mucinex Dm [Dextromethorphan-Guaifenesin], Risperdal [Risperidone], Strawberries, Tamiflu[Oseltamivir Phosphate], Topiramate, Bextra [Valdecoxib], and Cephalexin MEDICATIONS Current Outpatient Medications Medication Sig Fluticasone Furoate (FLONASE SENSIMIST) 27.5 mcg/actuation nasal spray Use 2 Sprays in each nostrilonce daily. ibuprofen (MOTRIN) 600 mg tablet Take 1 tablet by mouth every 6 hours as needed for pain. cetirizine (ZYRTEC) 10 mg tablet Take 1 tablet by mouth once daily. albuterol HFA (VENTOLIN HFA) 90 mcg/actuation inhaler Inhale 2 Puffs as instructed every 4 hours asneeded for wheezing/shortness of breath. montelukast (SINGULAIR) 10 [...] Father Seizures Father Seizures Brother Heart Sister GA Heart Sister Seizures Sister Young Diabetes Maternal [...] 78 Resp 20 Ht 159 cm (5' 2.6) Wt (!) 151 kg (333 lb) LMP [...] diet of 1000 mg/day for under 50, 1200- 1500 mg/day for 50+ - Discussed need and [...] evaluation. If unable to do still recommend follow-upwith urologist. 8. Conversion disorder - ICD9: 300.11, [...] effects were discussed and patient voices understanding. Idalia Lewis APRN.DIXIE This note was partially generated using Spyder Lynk voice recognition system. Note was reviewed for accuracy. There may be minor misspellings or grammar miscues with Spyder Lynk voice recognition. documented in this encounterKettering [facility]09-06-2023 Miscellaneous Notes* Telephone Encounter - Giovana Contreras LPN - 12/24/2022 10:50 AM EDT Patient mother notified of recommendations, verbalizes understanding of instructions. Mother statedunable to come in with Pt due to wheel chair bound. Explained to mother to look over the papers shegets from appt. It has follow up appts and labs need to be done. Giovana Contreras LPN * Telephone Encounter - Idalia Lewis APRN.MILLER HEAD ASSISTANT WET PROCESS - 12/24/2022 10:25 AM EDT Can you please call the patient's mother and let her know that I will address these concerns in theoffice today. However I would recommend that she have a parent/guardian come with her during officevisits to help guide care. She has standing orders to have the urine checked in the lab anytime. If she cannot provide a urinesample she needs to follow-up with her urologist. Please let me know if she has any further questions. Thank you. Idalia Lewis APRN.DIXIE * Telephone Encounter - Moni Cordoba RN - 12/24/2022 10:18 AM EDT Mother reports patient has appt today with Deniz Friedman, @ 11:20 am. Asking Slip Caster to check patient's urine b/c it smells like BM (patient was unable to give sample in lab). Asking Slip Caster to check all of patient's labs, b/c patient does not feel good: specifically patient's BS. Reports patient has been drinking a lot of diet pop, and mom knows this is not helping. Mother asking Slip Caster to look at patient's back, right side has a bulge, from shoulder to hip. Reports you can really see it when patient sits down. Mother wonders if it's curvature of the spine. documented in this encounterKettering Health [facility] Campus08-29-2023 Miscellaneous Notes* Telephone Encounter - Monik Hernandez LPN - 12/16/2022 11:44 AM EDT Pt was notified of results & instructions, pt states understanding. Monik Hernandez LPN * Telephone Encounter - Giovana Contreras LPN - 12/15/2022 3:11 PM EDT TC to pt. LM to call office, ask for triage nurse to get results. Giovana Contreras LPN * Telephone Encounter - Idalia Lewis APRN.CNP - 12/15/2022 3:04 PM EDT Can you please call the patient and let her know that her knee x-ray shows some degenerative changes which is consistent with arthritis. She may continue to use Motrin/ibuprofen 1 tablet every 6-8 hours as needed for pain. May use ice and elevate as needed. Thank you. Idalia Lewis APRN.DIXIE documented in this encounterKettering Health [facility] Campus08-24-2023 Instructions* Patient Instructions* Idalia Lewis APRN.CNP - 12/11/2022 2:29 PM EDT Get xray completed Provide urine sample in the lab today Stay well hydrated. May use flonase mist nasal spray 1-2 times per day. May use Tessalon perles as needed for cough. Follow up pending test results. documented in this encounterKettering [facility]08-24-2023 History of Present illness Narrative* Idalia Lewis APRN.CNP - 12/11/2022 2:00 PM EDT This is a 42 year old female who presents today with: Patient presents with: Cough HISTORY OF PRESENT ILLNESS: Maria Del Rosario Laws is a 42 year old female. Patient [...] 03/10/2019 STRESS TEST 02/13/2022 ALLERGIES Dayquil Liquicaps [Xkkbxlxef-Kp-Hf-Acetaminophen], Arithromycin [Azithromycin], Doxycycline, Latex, Mucinex Dm [Dextromethorphan-Guaifenesin], Risperdal [Risperidone], Strawberries, Tamiflu[Oseltamivir Phosphate], Topiramate, Bextra [Valdecoxib], and Cephalexin MEDICATIONS Current Outpatient Medications Medication Sig benzonatate (TESSALON PERLES) 100 mg capsule Take 1 capsule by mouth three times daily as needed for cough. albuterol HFA (VENTOLIN HFA) 90 mcg/actuation inhaler Inhale 2 Puffs as instructed every 4 hours asneeded for wheezing/shortness of breath. ibuprofen (MOTRIN) 600 [...] Father Seizures Father Seizures Brother Heart Sister GA Heart Sister Seizures Sister Young Diabetes Maternal [...] for depression, anxiety, or suicidal ideation. EXAM: [facility] 02/26/2021 PHYSICAL EXAM: General Appearance: Well [...] effects were discussed and patient voices understanding. Idalia Lewis APRN.DIXIE This note was partially generated using Spyder Lynk voice recognition system. Note was reviewed for accuracy. There may be minor misspellings or grammar miscues with Spyder Lynk voice recognition. documented in this encounterKettering Health [facility]07-03-2023 Miscellaneous Notes* Telephone Encounter - Tala Garcia RN - 10/20/2022 2:23 PM EDT * Telephone Encounter - Sherlyn Madrigal Cma - 10/20/2022 2:20 PM EDT Patient notified and verbalized understanding Sherlyn Madrigal Cma * Telephone Encounter - Daniel Tan MD - 10/20/2022 2:17 PM EDT OK for amoxicillin as ordered Daniel Tan MD * Telephone Encounter - Queta Garcia RN - 10/20/2022 12:03 PM EDT Patient calls and states that she started [...] Denies other symptoms Protocols used: Diarrhea on Czijhmipuak-ZSGBN-NW documented in this encounterKettering Health [facility] Campus07-01-2023 Miscellaneous Notes* Telephone Encounter - Ángela Villa LPN - 10/18/2022 12:02 PM EDT Spoke with pt and information listed below given. Pt verbalizes understanding. Ángela Villa LPN * Telephone Encounter - Daniel Tan MD - 10/18/2022 12:00 PM EDT OK for Omnicef and Tessalon as ordered Daniel Tan MD * Telephone Encounter - Ángela Villa LPN - 10/18/2022 11:52 AM EDT Pt called back and the bronchitis is still persisting. Pt reports productive cough and coughing up green phlegm and chest congestion. Pt was seen for this 09/18/22. She did complete ATB at that time. Denies; shortness of breath, fever, abdominal pain Pt declines coming into [facility] because she has no transportation. Please advise pt. Ángela Villa LPN documented in this encounterKettering Health [facility]06-05-2023 Miscellaneous Notes* Telephone Encounter - Mariana Gamez Ma - 09/22/2022 5:24 PM EDT Pt mother and pt notified. Mariana Gamez Ma * Telephone Encounter - PRESLEY Lebron - 09/22/2022 3:50 PM EDT TC to patient with no answer. Unable to leave VM, please try again later. PRESLEY Lebron * Telephone Encounter - Daniel Tan MD - 09/22/2022 3:46 PM EDT Please notify patient that her A1c is normal. Daniel Tan MD documented in this encounterKettering Health [facility]06-01-2023 History of Present illness Narrative* Daniel Tan MD - 09/18/2022 4:20 PM EDT Chief Complaint Patient presents with: Cough HPI Maria Del Rosario Laws is a 42 year old female who [...] Albuterol inhaler twice daily. Pt states her motherhas been sick with same sx. Has not [...] Father Seizures Father Seizures Brother Heart Sister GA Heart Sister Seizures Sister Young Diabetes Maternal [...] 2 Puffs as instructed every 4 hours asneeded for wheezing/shortness of breath. citalopram (CELEXA) 20 [...] in no acute distress, well-hydrated, well nourished. andMorbidly obese. Lungs: Lungs clear to auscultation. No [...] Past Histories independently gathered by the clinical technical support agent and the remaining scribed note accurately describes my personal service to the patient. Medical Decision Making: Problems: Low: Acute, uncomplicated illness or injury Data: Unique test(s) ordered: 1 Risk: Moderate: Drug management Medical Decision Making Level: 3 - Low Daniel Tan MD The documentation for this note was completed by Mariana Gamez Ma acting as scribe for Daniel Tan MD. September 18, 2022 4:28 PM. Mariana Gamez Ma documented in this encounterKettering Health [facility] Campus04-21-2023 Miscellaneous Notes* Telephone Encounter - Mariana Gamez Ma - 08/08/2022 4:52 PM EDT Kennedi notified. Mariana Gamez Ma * Telephone Encounter - Daniel Tan MD - 08/08/2022 4:51 PM EDT Yes, she may use Salonpas patches Daniel Tan MD * Telephone Encounter - Gabriella Cano RN - 08/08/2022 4:03 PM EDT Mother (Kennedi) calls to ask if it would be ok for patient to use Salonpas Patches to bilateral knees for arthritic pain since she is on so many other medications. Please review and advise, Gabriella Cano RN documented in this encounterKettering Health [facility] Campus04-14-2023 Miscellaneous Notes* Telephone Encounter - Mariana Gamez Ma - 08/01/2022 1:33 PM EDT Pt notified. Mariana Gamez Ma * Telephone Encounter - Monik Thorpe LPN - 07/31/2022 8:08 AM EDT Message left for patient to return call for update on results. * Telephone Encounter - Monik Thorpe LPN - 07/31/2022 8:07 AM EDT ----- Message from Chaim Garcia APRN.CNP sent at 07/30/2022 6:02 AM EDT ----- Please let the patient know that her COVID testing was negative. Chaim Garcia CNP documented in this encounterKettering Health [facility]04-11-2023 History of Present illness Narrative* Chaim Garcia APRN.CNP - 07/29/2022 2:00 PM EDT Chief Complaint Patient presents with: URI: X 1 week HPI Maria Del Rosario Laws is a 42 year old female who presents here today for Above Complaints. ENT: Patient complains of chest congestion. Duration: Approximately 1 week Fever: No. Headache: No. Sore throat: No. Ear pain: Yes. Nasal drainage: Yes. Cough: Yes. Shortness of breath: No. Nausea: Yes. Vomiting: No. Diarrhea: No. Previous treatment: No. Not using any ttui-fno-qxujqpv medications. Patient has a history of asthma. [...] in no acute distress, well-hydrated, well nourished. andObese. Head: Normocephalic, no masses, lesions, tenderness or [...] -Rule out - COVID WITH FLUA+B, ROUTINE Chaim Garcia APRN.MILLER HEAD ASSISTANT WET PROCESS This note was partly generated using Spyder Lynk voice recognition dictation and may contain some misspelled or inaccurate words missed on review. documented in this encounterKettering Health [facility] Campus03-27-2023 Miscellaneous Notes* Telephone Encounter - Elnea Randall RN - 07/14/2022 3:04 PM EDT Reason for call: Patient calling to reschedule appointment with cardiology. [facility] and last night. Patient states pain was located on left side and last night she took nitrostat. Patient notes patient has been increasing in frequency. Patient denies shortness of breath at this time. Outcome: Patient declines ED recommendation. I spoke with Nurse Sally from [facility] whorecommends the patient go to ED as well. I informed the patient and she states she will go to [facility] for evaluation. Reason for Disposition [1] Chest pain (or angina) comes and goes AND [2] is happening more often (increasing in frequency) or getting worse (increasing in severity) (Exception: chest pains that last only a few seconds) Protocols used: Chest [id number] documented in this encounterKettering Health [facility]02-27-2023 History of Present illness Narrative* BRIDGETTE Weber - 06/16/2022 11:59 AM EST This note was created using NoteWriter. Subjective Maria Del Rosario Laws is a 41 year old female. HPI 41-year-old female presents for cough and congestion. Patient states she has had a cough and nasal congestion for about a week. She has sinus pressure and pain. She has history of asthma. She hasbeen using her inhalers. No vomiting or diarrhea. [...] 03/10/2019 STRESS TEST 02/13/2022 ALLERGIES Dayquil Liquicaps [Kobpcqytn-Kj-Fa-Acetaminophen], Arithromycin [Azithromycin], Doxycycline, Latex, Mucinex Dm [Dextromethorphan-Guaifenesin], Risperdal [Risperidone], Strawberries, Tamiflu[Oseltamivir Phosphate], Topiramate, Bextra [Valdecoxib], and Cephalexin MEDICATIONS albuterol HFA (VENTOLIN HFA) 90 mcg/actuation inhaler Inhale 2 Puffs as instructed every 4 hours asneeded for wheezing/shortness of breath. citalopram (CELEXA) 20 [...] Father Seizures Father Seizures Brother Heart Sister GA Heart Sister Seizures Sister Young Diabetes Maternal [...] ER evaluation. BRIDGETTE Weber documented in this encounterKettering Health [facility]02-15-2023 Miscellaneous Notes* Telephone Encounter - Gabriella Cano RN - 06/04/2022 2:28 PM EST Call placed to patient and mother notified prescriptions were sent to [facility] as requested. Gabriella Cano RN * Telephone Encounter - Idalia Lewis APRN.CNP - 06/04/2022 12:41 PM EST The following approved medication requests have been transmitted electronically. Requested Prescriptions Pending Prescriptions Disp Refills benzonatate (TESSALON PERLES) 100 mg capsule 30 capsule 0 Sig: Take 1 capsule by mouth three times daily as needed for cough. albuterol HFA (VENTOLIN HFA) 90 mcg/actuation inhaler 1 Each 0 Sig: Inhale 2 Puffs as instructed every 4 hours as needed for wheezing/shortness of breath. Idalia Lewis APRN.CNP * Telephone Encounter - Gabriella Cano RN - 06/04/2022 12:34 PM EST Patient has been identified by name and [...] for wheezing/shortness of breath. Verified with [facility] no refills on tessalon. Date of last [...] you. Gabriella Cano RN documented in this encounterK[facility]02-09-2023 Miscellaneous Notes* Telephone Encounter - Olimpia Bell Ma - 05/29/2022 11:08 AM EST PA should not be needed since formulary option available. [facility] to [facility] who advised yes fadychaka ran for pro-air. Patient grandmother was notified Olimpia Bell Ma * Telephone Encounter - Moni Cordoba RN - 05/29/2022 10:41 AM EST Prior Authorization Documentation Prior authorization requested for the following medication: Medication: albuterol inhaler Provider: [place] Name: Awdio Phone number: Patient ID number: [id number] [facility]: [facility] documented in this encounterK[facility]01-27-2023 Instructions* Patient Instructions* Idalia Lewis APRN.CNP - 05/16/2022 12:01 PM EST Start Augmentin, take with food. May use tessalon perles as needed for cough. Use albuterol inhaler as needed for shortness of breath or wheezing. Stay well hydrated. If post nasal drip becomes bothersome you can try flonase nasal spray. Follow up as needed. Dry skin recommend Eucerin or Aquaphor ointment. documented in this encounterKettering [facility]01-27-2023 History of Present illness Narrative* Idalia Lewis APRN.CNP - 05/16/2022 11:40 AM EST This is a 41 year old female who presents today with: Patient presents with: Acute Visit: ?bronchitis HISTORY OF PRESENT ILLNESS: Maria Del Rosario Laws is a 41 year old female. Patient [...] 03/10/2019 STRESS TEST 02/13/2022 ALLERGIES Dayquil Liquicaps [Ghnchepyx-Oj-Uf-Acetaminophen], Arithromycin [Azithromycin], Doxycycline, Latex, Mucinex Dm [Dextromethorphan-Guaifenesin], Risperdal [Risperidone], Strawberries, Tamiflu[Oseltamivir Phosphate], Topiramate, Bextra [Valdecoxib], and Cephalexin MEDICATIONS [...] Father Seizures Father Seizures Brother Heart Sister GA Heart Sister Seizures Sister Young Diabetes Maternal [...] effects were discussed and patient voices understanding. Idalia Lewis APRN.DIXIE This note was partially generated using Spyder Lynk voice recognition system. Note was reviewed for accuracy. There may be minor misspellings or grammar miscues with Spyder Lynk voice recognition. documented in this encounterKettering [facility]01-25-2023 Miscellaneous Notes* Telephone Encounter - Maty Barba RN - 05/14/2022 10:15 AM EST Returned call to patient's guardian. She stated she does not live with patient and I will have to call patient's mother. Contacted patient's mother. Provided message. Patient's mother was very confused as she insists shewas told there are kidney stones present. Reiterated that CT results were normal. She said patient is still having constipation issues. Discussed conservative measures to treat constipation. She saidpatient is still having difficulty urinating. Per Mary Polanco's note, patient may schedule at [place] today to have a catheter placed if having troubles urinating. Patient's mother said she would rather call [facility] to schedule an appointment. No further questions or concerns at this time. Maty Barba RN * Telephone Encounter - Mary Polanco APRN.CNP - 05/14/2022 10:04 AM EST Please let the patient and guardian know that the ct scan is normal. She did mention she had constipation, is this still a problem? If so she will need to manage the constipation. If unable to void she can have a hung catheter placed today at [place] She would need to be here at 1 pm. * Telephone Encounter - Justine Bill - 05/12/2022 5:13 PM EST Pt and guardian called regarding pt stating she is going to have the CT tomorrow. She stated that she is having so much trouble urinating and is worried. Was not sure who she should talk to but will get the CT done. Guardian was very confused about what happens after CT. documented in this encounterKettering [facility]01-24-2023 History of Present illness Narrative* Kisha Gore RT(R) - 05/13/2022 1:00 PM EST Radiology Service Progress Note PATIENT NAME: Maria Del Rosario Laws DATE OF SERVICE: May 13, 2022 TIME: 4:01 PM PATIENT IDENTITY VERIFICATION COMPLETED USING TWO (2) IDENTIFIERS: Name and Date of confirmedby patient verbally. FALL SCREENING: Has the patient [...] 13, 2022 4:01 PM documented in this encounterKettering [facility]01-18-2023 Instructions* Patient Instructions* Mary Polanco APRN.CNP - 05/07/2022 3:45 PM EST Images from [...] t be there, such as a bladder stone,or to take a biopsy (a sample of [...] patient s medical history, current prescription and xskq-zyf-jzroxey medications, and allergies to medications, including anesthetics. [...] her bladder before the procedure begins. The hsyb-un-vbzb process may be similar to this: The [...] has a tiny lens with a light thatallows the urologist to look inside the urethra [...] some discomfort as well as the urge tourinate. If necessary, the urologist can remove some of the liquid from the bladder during the procedure. Once the procedure is over, the urologist may drain the patient s bladder, or ask the patientto use the bathroom to urinate before he [...] appears unusual. The bladder wall should be smooth,and there should not be any blockages in [...] symptom of an enlarged prostate in men orof scar tissue in the urethra. During the [...] (it may be darker, or look pink orred due to mild bleeding). This is common, especially if a biopsy was taken. After the procedure, the urologist may recommend that the patient: Drink 16 ounces of water each hour for 2 hours after the procedure Take a warm bath to help ease the burning feeling Place a warm, damp washcloth over the urethral opening to relieve discomfort Take an rjbl-cff-vlcrzlm pain medicine If necessary, the urologist may prescribe an antibiotic to take for a couple of days after the procedure to prevent an infection. If you have severe pain, chills, or fever (these could be signs of aninfection), it is important to call the urologist [...] urine Fever Severe discomfort References: NIH: National [place] of Diabetes and Digestive and Kidney Diseases. Cystoscopy and Ureteroscopy Accessed 10/16/2016. Sarah Sharma, Laila D, Vikram H, Carrington JS. The History of Cystoscopy in Urology, Internet Journal of Urology. 14,1 (2014) [employer] Accessed 10/16/2016. Urology [facility]. What is Cystoscopy? Accessed 10/16/2016. Copyright 5056-1854 [facility]. All rights reserved. documented in this encounterKettering [facility] Campus01-18-2023 History of Present illness Narrative* Mary Polanco APRN.CNP - 05/07/2022 3:15 PM EST Maria Del Rosario Laws is a 41 year old female who [...] Tumors:no Infections:no VITALS: Height 165.1 cm (5' 5), weight (!) 152 kg (335 lb), last menstrual period 02/26/2021. ALLERGIES: Dayquil Liquicaps [Vksoqqtzh-Gx-Yl-Acetaminophen], Arithromycin [Azithromycin], Doxycycline, Latex, Mucinex Dm [Dextromethorphan-Guaifenesin], Risperdal [Risperidone], Strawberries, Tamiflu [Oseltamivir Phosphate], Topiramate, [...] 6 hours as needed for pain. 30 tablet5 benzonatate (TESSALON PERLES) 100 mg capsule Take [...] Father Seizures Father Seizures Brother Heart Sister GA Heart Sister Seizures Sister Young Diabetes Maternal [...] a follow up for cystoscopy Mary Polanco APRN.MILLER HEAD ASSISTANT WET PROCESS documented in this encounterKettering [facility]01-18-2023 Nurse Note* Ginger Zuniga LPN - 05/07/2022 3:12 PM EST Bladder scan obtained 0 ml of urine documented in this encounterKettering [facility]01-06-2023 Miscellaneous Notes* Telephone Encounter - Daniel Tan MD - 04/25/2022 3:38 PM EST Noted Daniel Tan MD * Telephone Encounter - Tala Garcia RN - 04/25/2022 2:17 PM EST Triage protocol recommended: ER now due to [...] will be seeing Urology on 05/07 in [place]. Reports nausea and back ache. After more questioning, mother states pt had a viral respiratory illness in late March and was evaluated by Idalia Lewis. Chest xray, covid and flu tests negative at that time. Mother reports pt is worse since then. Reports pt wheezing and hears raspy sounds coming from her lungs when pt sleeps. Pt withproductive cough of brown phlegm and sore throat. Reports nausea, hot and chills. Unknown if fever.Also reports achey legs. Had diarrhea last week [...] bronchitis and kidney issue, has not seen DIVISION SUPERVISOR in many years. Denies recent engraver tender surgery, recent engraver tender procedure; known bleeding disorder, cervical cancer, polycystic ovarian disease, or fibroids 11. HEMODYNAMIC STATUS: Denies feeling weak or feeling lightheaded, walking okay Protocols used: Vaginal Bleeding - Homiuknq-EOBDU-IB documented in this encounterKettering [facility]12-23-2022 Miscellaneous Notes* Telephone Encounter - Giovana Contreras LPN - 04/11/2022 9:48 AM EST Patient notified of results, verbalizes understanding of instructions. Giovana Contreras LPN * Telephone Encounter - Idalia Lewis APRN.CNP - 04/11/2022 8:23 AM EST Can you please call the patient and let her know that her Covid/Flu were negative. I would recommend that she continue supportive care at home. May use Robitussin and Tessalon Perlesas needed for cough. Please let me know if she has any questions. Thank you. Idalia Lewis APRN.DIXIE documented in this encounterKettering [facility]12-22-2022 Miscellaneous Notes* Telephone Encounter - Giovana Contreras LPN - 04/10/2022 3:43 PM EST Patient mother notified of results, verbalizes understanding of instructions. She will tell Pt. Giovana Contreras LPN * Telephone Encounter - Idalia Lewis APRN.CNP - 04/10/2022 3:41 PM EST Can you please call the patient and let her know that her chest x-ray was normal. Office will be in touch with her once we receive COVID/flu results. Continue supportive care at home Thank you. Idalia Lewis APRN.CNP documented in this encounterKettering [facility] Campus12-22-2022 History of Present illness Narrative* Nara Forrester RT(R) - 04/10/2022 2:20 PM EST Radiology Service Progress Note PATIENT NAME: Maria Del Rosario Laws DATE OF SERVICE: April 10, 2022 TIME: 2:21 PM PATIENT IDENTITY VERIFICATION COMPLETED USING TWO (2) IDENTIFIERS: Name and Date of confirmedby patient verbally. FALL SCREENING: Has the patient had 2 falls in the last year or 1 fall with injury or currently using an Ambulatory Assistive Device (Walker, Cane, Wheelchair, Crutches, etc.)? No PATIENT GENDER DATA: Female. status: : No status: NO. PATIENT RELEVANT IMPLANT DATA REVIEWED: Not Applicable RADIOLOGY DEPARTMENT: General X-ray: Exam(s) Completed: Chest X-Ray PERIPHERAL IV DATA: Not applicable SIGNED BY: RT Gerardo(R) April 10, 2022 2:21 PM documented in this encounterKettering Health [facility]12-22-2022 Instructions* Patient Instructions* Idalia Lewis APRN.CNP - 04/10/2022 2:11 PM EST Get chest xray completed. Continue supportive care at home. May use tessalon perles as needed for cough. Recommend using cough syrup as needed such as robitussin DM. Stay well hydrated. Covid/Flu results will be back tomorrow Follow up pending test results. documented in this encounterKettering [facility]12-22-2022 History of Present illness Narrative* Idalia Lewis APRN.CNP - 04/10/2022 2:00 PM EST This is a 41 year old female who presents today with: Patient presents with: Acute Visit: cough, brown sputum, congestion HISTORY OF PRESENT ILLNESS: Maria Del Rosario Laws is a 41 year old female. Patient [...] 03/10/2019 STRESS TEST 02/13/2022 ALLERGIES Dayquil Liquicaps [Zaetgdvdp-Ud-Rt-Acetaminophen], Arithromycin [Azithromycin], Doxycycline, Latex, Mucinex Dm [Dextromethorphan-Guaifenesin], Risperdal [Risperidone], Strawberries, Tamiflu[Oseltamivir Phosphate], Topiramate, Bextra [Valdecoxib], and Cephalexin MEDICATIONS [...] Father Seizures Father Seizures Brother Heart Sister GA Heart Sister Seizures Sister Young Diabetes Maternal [...] effects were discussed and patient voices understanding. Idalia Lewis APRN.MILLER HEAD ASSISTANT WET PROCESS This note was partially generated using Spyder Lynk voice recognition system. Note was reviewed for accuracy. There may be minor misspellings or grammar miscues with Spyder Lynk voice recognition. documented in this encounterKettering Health [facility] Campus12-22-2022 Miscellaneous Notes* Telephone Encounter - Moni Cordoba RN - 04/10/2022 10:38 AM EST Protocol recommends see provider in 4 hours. Scheduled same day appt with Slip Caster. Reason for Disposition Wheezing is present Answer Assessment - Initial Assessment Questions 1. ONSET: Cough started 3 days ago. 2. SEVERITY: Constant 3. SPUTUM: Brown sputum 4. HEMOPTYSIS: No 5. DIFFICULTY BREATHING: Mild SOB, audible wheezing 6. FEVER: Thinks she has fever. Hot/chills. Did not take temp. 7. 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 Carrero- [facility]. 8. LUNG HISTORY: Asthma 9. PE RISK FACTORS: No 10. OTHER SYMPTOMS: Wheezing. Has had CP for a while now (more than 2 months) and sees cardiologistfor this. Ear pain. No sore throat. Runny nose. 11. : No 12. TRAVEL: No exposures. No covid vaccine. No flu vaccine. Protocols used: Cough - Acute Ithnvyrayn-TWWLL-WG documented in this encounterKettering [facility] Campus12-19-2022 Miscellaneous Notes* Telephone Encounter - Sherlyn Hood MA - 04/07/2022 12:56 PM EST Unable to reach patient. Left VM to return call to office. Please read below and advise. Sherlyn Hood MA * Telephone Encounter - Chaim Garcia APRN.CNP - 04/07/2022 11:41 AM EST Agree. Patient needs evaluated to determine if antibiotic is recommended or if this is just a viralillness. Chaim Garcia APRN.CNP * Telephone Encounter - Queta Garcia RN - 04/07/2022 10:46 AM EST Patient call in for coughing up brown mucous and cough. Patient states that she has congestion everywhere. Patient has had cough x 4 days. Nurse Triage assessment completed with protocol recommendingfor disposition of See PCP in 4 hours. [...] other symptoms Protocols used: Cough - Acute Mvydnzweqd-MMHZJ-XX documented in this encounterKettering Health [facility] Campus11-21-2022 Miscellaneous Notes* Telephone Encounter - Idalia Lewis APRN.CNP - 03/10/2022 12:54 PM EST Noted, thank you. Idalia Lewis APRN.CNP * Telephone Encounter - Giovana Contreras LPN - 03/10/2022 12:45 PM EST Patient notified of results, verbalizes understanding of instructions. CT scan offered to further view. Pt declined. Advise to follow up with Urology. Giovana Contreras LPN * Telephone Encounter - Idalia Lewis APRN.CNP - 03/10/2022 9:32 AM EST Can you please call the patient and [...] the patient how she has been feeling? Idalia Lewis APRN.CNP documented in this encounterKettering Health [facility] Campus11-16-2022 Instructions* Patient Instructions* Idalia Lewis APRN.CNP - 03/05/2022 2:45 PM EST Get labs and urine testing completed. Schedule appointment for ultrasound as soon as possible. If you cannot urinate go to ER. May use tessalon perles as needed for cough. Follow up pending test results or sooner as needed. documented in this encounterKettering Health [facility] Campus11-16-2022 History of Present illness Narrative* Idalia Lewis APRN.CNP - 03/05/2022 2:20 PM EST This is a 41 year old female who presents today with: Patient presents with: Acute Visit: no voiding HISTORY OF PRESENT ILLNESS: Maria Del Rosario Laws is a 41 year old female. Patient presents with: Acute Visit: no voiding Here in the office for difficulty urinating. Started a couple of weeks. Refers she has difficulty getting stream started. Denies any dysuria or hematuria. Has rx for taking oxybutynin But not taking right now. Refers she stays well hydrated drinking about 90 ounces of water per day.Refers she has bilateral flank pain for several [...] removal from lower back ALLERGIES Dayquil Liquicaps [Arvpypvko-La-Ju-Acetaminophen], Arithromycin [Azithromycin], Doxycycline, Latex, Mucinex Dm [Dextromethorphan-Guaifenesin], Risperdal [Risperidone], Strawberries, Tamiflu[Oseltamivir Phosphate], Topiramate, Bextra [Valdecoxib], and Cephalexin MEDICATIONS [...] Father Seizures Father Seizures Brother Heart Sister GA Heart Sister Seizures Sister Young Diabetes Maternal [...] effects were discussed and patient voices understanding. Idalia Lewis APRN.DIXIE This note was partially generated using Spyder Lynk voice recognition system. Note was reviewed for accuracy. There may be minor misspellings or grammar miscues with Spyder Lynk voice recognition. documented in this encounterKettering [facility] Campus11-15-2022 Miscellaneous Notes* Telephone Encounter - Daniel Tan MD - 03/04/2022 4:01 PM EST Noted Daniel Tan MD * Telephone Encounter - Sheree Roberson LPN - 03/04/2022 11:25 AM EST Mother calls to reports pt is drinking a lot of soda and that is why pt has been gaining weight. Mother also reports pt has been drinking a lot of ice water and that is giving pt headaches. Mother reports pt is having decreased urination. Appt scheduled for tomorrow. Sheree Roberson LPN documented in this encounterKettering Health [facility] Campus09-19-2022 Miscellaneous Notes* Addendum Note - Daniel Tan MD - 01/06/2022 4:18 PM EDTAddended by: DANIEL TAN on: 01/06/2022 04:18 PM Modules accepted: Orders * Telephone Encounter - Daniel Tan MD - 01/06/2022 4:18 PM EDT OK to refill as ordered Daniel Tan MD * Telephone Encounter - Chantel Townsend Ma - 01/06/2022 3:44 PM EDT Pt last given Rx on 12/09/21 this has been 1 month ago. Chantel Townsend Ma * Telephone Encounter - Opal Burk - 01/06/2022 3:37 PM EDT Patient is calling to request a refill on the tessalon pearls, and Augmentin as she is still coughing and the virus is still in her chest. She usees the [facility] in [place], she mentioned provider told her they would refill the medication again and to just call back for that refill. Patient can be reached at phone# [phone], this number has been verified. documented in this encounterKettering Health [facility] Campus08-23-2022 Miscellaneous Notes* Telephone Encounter - Mariana Gamez Ma - 12/10/2021 4:48 PM EDT Referral and demo faxed to Dr. Behzad Carreno's office. Will have them call pt to schedule. Mariana Gamez Ma * Telephone Encounter - Catarina Rosario LPN - 12/10/2021 4:41 PM EDT Mother called back and would like the referral faxed to Dr. Behzad Carreno at [facility]. * Telephone Encounter - Chantel Townsend Ma - 12/10/2021 4:33 PM EDT Called and spoke with MotherKennedi notifying her that Derm Referral has been placed. Made here aware [facility] has no on locally but there are other Providers. States her Son got paperwork for someone [facility]. Will call back with Provider information to fax referral too. Keep Encounter open. Once Mother calls back fax referral information. Chantel Townsend Ma * Telephone Encounter - Daniel Tan MD - 12/10/2021 4:25 PM EDT OK to refer to Derm Daniel Tan MD * Telephone Encounter - Nadia Parsons - 12/10/2021 2:43 PM EDT Spoke with patients mother Kennedi who states this is something that needs to be evaluated sooner than later. States the mole has gotten bigger in size and that it bleeds occasionally. Wanting to see Dermatology. Advise. Nadia Parsons * Telephone Encounter - Daniel Tan MD - 12/10/2021 2:32 PM EDT If it has not changed for the last 2 years we can just look at it the next time she is in for an appt Daniel Tan MD * Telephone Encounter - Opal Burk - 12/10/2021 12:40 PM EDT Patient has a mole on her right hip for a couple of years with no change in color or size, however she wonders if she should see a camp cook for this mole? Please call to advise at [phone]. Phone number is house phone and has been verified. Thank you documented in this encounterKettering Health [facility] Campus08-23-2022 Miscellaneous Notes* Telephone Encounter - Mariana Gamez Ma - 12/10/2021 2:41 PM EDT The following approved medication requests have been transmitted electronically. Requested Prescriptions Signed Prescriptions Disp Refills albuterol HFA (PROAIR HFA) 90 mcg/actuation inhaler 18 g 2 Sig: Inhale 2 Puffs as instructed every 4 hours as needed. Authorizing Provider: DANIEL TAN ibuprofen (MOTRIN) 600 mg tablet 30 tablet 5 Sig: Take 1 tablet by mouth every 6 hours as needed for pain. Authorizing Provider: DANIEL TAN Ma * Telephone Encounter - Daniel Tan MD - 12/10/2021 2:38 PM EDT Ok for orders as filed Daniel Tan MD * Telephone Encounter - Justine Patel - 12/10/2021 10:44 AM EDT aMria Del Rosario is calling to report that she is not interested in using the Voltaren cream. She read that it may cause heart attacks. She would prefer the Ibuprofen 600mg to be sent to her pharmacy. She is also requesting the albuterol inhaler as pended. Patient can be reached at [phone] with any questions. documented in this encounterKettering Health [facility] Campus08-22-2022 History of Present illness Narrative* Daniel Tan MD - 12/09/2021 2:20 PM EDT Chief Complaint Patient presents with: Physical HPI Maria Del Rosario Laws is a 41 year old female who presents here today for a Physical. Pt not seen in office since 09/10/20. Has pain with urination and urinary frequency for the last few days. Has seen [facility] in the past due to chest pain and dyspnea on exertion. Cardiac work upcompleted and normal. She is concerned about diabetes, [...] to the coughing, coughing up brown phlegm, hermelindo ear pain, sore throat, SOB, headache. Denies [...] Father Seizures Father Seizures Brother Heart Sister GA Heart Sister Seizures Sister Young Diabetes Maternal [...] in no acute distress, well-hydrated, well nourished. andMorbidly obese. Ears: External ears normal, canals clear. Lungs: Lungs clear to auscultation. No wheezing, rhonchi, rales.. Heart: RRR without murmur, gallop, or rubs. No ectopy. Extremities: hermelindo knees, right side worse, pain on palpation. [...] Past Histories independently gathered by the clinical technical support agent and the remaining scribed note accurately describes my personal service to the patient. Medical Decision Making: Problems: Moderate: New problem with uncertain prognosis and 2+ stable chronic illnesses Data: Unique test(s) ordered: 3+ Risk: Moderate: Drug management Medical Decision Making Level: 4 - Moderate Daniel Tan MD The documentation for this note was completed by Mariana Gamez Ma acting as scribe for Daniel Tan MD. December 09, 2021 2:44 PM. Mariana Gamez Ma documented in this encounterKettering Health [facility] Campus07-29-2022 Miscellaneous Notes* Telephone Encounter - Idalia Lewis APRN.CNP - 11/15/2021 2:52 PM EDT The following approved medication requests have been transmitted electronically. Pending Prescriptions Disp Refills ALBUTEROL SULFATE HFA 90 MCG/ACTUATION AEROSOL INHALER 18 g 2 Sig: Inhale 2 Puffs as instructed every 4 hours as needed. LEEANNA: No Idalia Lewis APRN.CNP * Telephone Encounter - Marita Cooper GO - 11/15/2021 2:48 PM EDT Patient has been identified by name and [...] you. Marita Gamboa LPN documented in this encounterKettering Health [facility] Campus05-05-2021 History of Present illness Narrative* Nara Forrester RT(R) - 08/22/2020 9:30 AM EDT Radiology Service Progress Note PATIENT NAME: Maria Del Rosario Laws DATE OF SERVICE: August 22, 2020 TIME: 9:39 AM PATIENT IDENTITY VERIFICATION COMPLETED USING TWO (2) IDENTIFIERS: Name and Date of confirmedby patient verbally. FALL SCREENING: Has the patient had 2 falls in the last year or 1 fall with injury or currently using an Ambulatory Assistive Device (Walker, Cane, Wheelchair, Crutches, etc.)? No PATIENT GENDER DATA: Female. status: : No status: NO. 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/08/2015 documented as of this encounter (statuses as of 11/20/2021) [facility] History of Past illness Narrative* Problem Noted Date Resolved Date Irregular menses 10/03/2011 10/27/2012 Other malaise and fatigue 12/30/20042014 Myalgia and myositis, unspecified 05/08/2014 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/08/2015 documented as of this encounter (statuses as of 12/09/2021) [facility] History of Past illness Narrative* Problem Noted Date Resolved Date Irregular menses 10/03/2011 10/27/2012 Other malaise and fatigue 12/30/20042014 Myalgia and myositis, unspecified 05/08/2014 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/08/2015 documented as of this encounter (statuses as of 12/10/2021) [facility] History of Past illness Narrative* Problem Noted Date Resolved Date Irregular menses 10/03/2011 10/27/2012 Other malaise and fatigue 12/30/20042014 Myalgia and myositis, unspecified 05/08/2014 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/08/2015 documented as of this encounter (statuses as of 12/10/2021) [facility] History of Past illness Narrative* Problem Noted Date Resolved Date Irregular menses 10/03/2011 10/27/2012 Other malaise and fatigue 12/30/20042014 Myalgia and myositis, unspecified 05/08/2014 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/08/2015 documented as of this encounter (statuses as of 01/06/2022) [facility] History of Past illness Narrative* Problem Noted Date Resolved Date Irregular menses 10/03/2011 10/27/2012 Other malaise and fatigue 12/30/20042014 Myalgia and myositis, unspecified 05/08/2014 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/08/2015 documented as of this encounter (statuses as of 03/04/2022) [facility] History of Past illness Narrative* Problem Noted Date Resolved Date Irregular menses 10/03/2011 10/27/2012 Other malaise and fatigue 12/30/20042014 Myalgia and myositis, unspecified 05/08/2014 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/08/2015 documented as of this encounter (statuses as of 03/05/2022) [facility] History of Past illness Narrative* Problem Noted Date Resolved Date Irregular menses 10/03/2011 10/27/2012 Other malaise and fatigue 12/30/20042014 Myalgia and myositis, unspecified 05/08/2014 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/08/2015 documented as of this encounter (statuses as of 03/07/2022) [facility] History of Past illness Narrative* Problem Noted Date Resolved Date Irregular menses 10/03/2011 10/27/2012 Other malaise and fatigue 12/30/20042014 Myalgia and myositis, unspecified 05/08/2014 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/08/2015 documented as of this encounter (statuses as of 03/10/2022) [facility] History of Past illness Narrative* Problem Noted Date Resolved Date Irregular menses 10/03/2011 10/27/2012 Other malaise and fatigue 12/30/20042014 Myalgia and myositis, unspecified 05/08/2014 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/08/2015 documented as of this encounter (statuses as of 04/09/2022) [facility] History of Past illness Narrative* Problem Noted Date Resolved Date Irregular menses 10/03/2011 10/27/2012 Other malaise and fatigue 12/30/20042014 Myalgia and myositis, unspecified 05/08/2014 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/08/2015 documented as of this encounter (statuses as of 04/11/2022) [facility] History of Past illness Narrative* Problem Noted Date Resolved Date Irregular menses 10/03/2011 10/27/2012 Other malaise and fatigue 12/30/20042014 Myalgia and myositis, unspecified 05/08/2014 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/08/2015 documented as of this encounter (statuses as of 04/12/2022) [facility] History of Past illness Narrative* Problem Noted Date Resolved Date Irregular menses 10/03/2011 10/27/2012 Other malaise and fatigue 12/30/20042014 Myalgia and myositis, unspecified 05/08/2014 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/08/2015 documented as of this encounter (statuses as of 04/13/2022) [facility] History of Past illness Narrative* Problem Noted Date Resolved Date Irregular menses 10/03/2011 10/27/2012 Other malaise and fatigue 12/30/20042014 Myalgia and myositis, unspecified 05/08/2014 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/08/2015 documented as of this encounter (statuses as of 04/26/2022) [address]-2012 History of Past illness Narrative* Problem Noted Date Resolved Date Irregular menses 10/03/2011 10/27/2012 Other malaise and fatigue 12/30/20042014 Myalgia and myositis, unspecified 05/08/2014 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/08/2015 documented as of this encounter (statuses as of 05/07/2022) [facility] History of Past illness Narrative* Problem Noted Date Resolved Date Irregular menses 10/03/2011 10/27/2012 Other malaise and fatigue 12/30/20042014 Myalgia and myositis, unspecified 05/08/2014 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/08/2015 documented as of this encounter (statuses as of 05/15/2022) [facility] History of Past illness Narrative* Problem Noted Date Resolved Date Irregular menses 10/03/2011 10/27/2012 Other malaise and fatigue 12/30/20042014 Myalgia and myositis, unspecified 05/08/2014 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/08/2015 documented as of this encounter (statuses as of 05/16/2022) [facility] History of Past illness Narrative* Problem Noted Date Resolved Date Irregular menses 10/03/2011 10/27/2012 Other malaise and fatigue 12/30/20042014 Myalgia and myositis, unspecified 05/08/2014 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/08/2015 documented as of this encounter (statuses as of 05/29/2022) [address]-2012 History of Past illness Narrative* Problem Noted Date Resolved Date Irregular menses 10/03/2011 10/27/2012 Other malaise and fatigue 12/30/20042014 Myalgia and myositis, unspecified 05/08/2014 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/08/2015 documented as of this encounter (statuses as of 06/05/2022) [facility] History of Past illness Narrative* Problem Noted Date Resolved Date Irregular menses 10/03/2011 10/27/2012 Other malaise and fatigue 12/30/20042014 Myalgia and myositis, unspecified 05/08/2014 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/08/2015 documented as of this encounter (statuses as of 06/16/2022) [facility] History of Past illness Narrative* Problem Noted Date Resolved Date Irregular menses 10/03/2011 10/27/2012 Other malaise and fatigue 12/30/20042014 Myalgia and myositis, unspecified 05/08/2014 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/08/2015 documented as of this encounter (statuses as of 07/14/2022) [facility] History of Past illness Narrative* Problem Noted Date Resolved Date Irregular menses 10/03/2011 10/27/2012 Other malaise and fatigue 12/30/20042014 Myalgia and myositis, unspecified 05/08/2014 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/08/2015 documented as of this encounter (statuses as of 07/30/2022) [facility] History of Past illness Narrative* Problem Noted Date Resolved Date Irregular menses 10/03/2011 10/27/2012 Other malaise and fatigue 12/30/20042014 Myalgia and myositis, unspecified 05/08/2014 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/08/2015 documented as of this encounter (statuses as of 08/02/2022) [facility] History of Past illness Narrative* Problem Noted Date Resolved Date Irregular menses 10/03/2011 10/27/2012 Other malaise and fatigue 12/30/20042014 Myalgia and myositis, unspecified 05/08/2014 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/08/2015 documented as of this encounter (statuses as of 08/09/2022) [facility] History of Past illness Narrative* Problem Noted Date Resolved Date Irregular menses 10/03/2011 10/27/2012 Other malaise and fatigue 12/30/20042014 Myalgia and myositis, unspecified 05/08/2014 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/08/2015 documented as of this encounter (statuses as of 08/14/2022) [facility] History of Past illness Narrative* Problem Noted Date Resolved Date Irregular menses 10/03/2011 10/27/2012 Other malaise and fatigue 12/30/20042014 Myalgia and myositis, unspecified 05/08/2014 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/08/2015 documented as of this encounter (statuses as of 08/25/2022) [facility] History of Past illness Narrative* Problem Noted Date Resolved Date Irregular menses 10/03/2011 10/27/2012 Other malaise and fatigue 12/30/20042014 Myalgia and myositis, unspecified 05/08/2014 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/08/2015 documented as of this encounter (statuses as of 09/19/2022) [facility] History of Past illness Narrative* Problem Noted Date Resolved Date Irregular menses 10/03/2011 10/27/2012 Other malaise and fatigue 12/30/20042014 Myalgia and myositis, unspecified 05/08/2014 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/08/2015 documented as of this encounter (statuses as of 09/23/2022) [facility] History of Past illness Narrative* Problem Noted Date Resolved Date Irregular menses 10/03/2011 10/27/2012 Other malaise and fatigue 12/30/20042014 Myalgia and myositis, unspecified 05/08/2014 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/08/2015 documented as of this encounter (statuses as of 10/18/2022) [facility] History of Past illness Narrative* Problem Noted Date Resolved Date Irregular menses 10/03/2011 10/27/2012 Other malaise and fatigue 12/30/20042014 Myalgia and myositis, unspecified 05/08/2014 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/08/2015 documented as of this encounter (statuses as of 10/20/2022) [facility] History of Past illness Narrative* Problem Noted Date Diagnosed Date Resolved Date Irregular menses 10/03/2011 10/27/2012 Other malaise and fatigue 12/30/2004 Myalgia and myositis, unspecified 05/08/2014 Chronic factitious illness w ith physical symptoms 10/08/2015 documented as of this encounter (statuses as of 12/12/2022) [facility] History of Past illness Narrative* Problem Noted Date Diagnosed Date Resolved Date Irregular menses 10/03/2011 10/27/2012 Other malaise and fatigue 12/30/2004 Myalgia and myositis, unspecified 05/08/2014 Chronic factitious illness w ith physical symptoms 10/08/2015 documented as of this encounter (statuses as of 12/16/2022) [facility] History of Past illness Narrative* Problem Noted Date Diagnosed Date Resolved Date Irregular menses 10/03/2011 10/27/2012 Other malaise and fatigue 12/30/2004 Myalgia and myositis, unspecified 05/08/2014 Chronic factitious illness w ith physical symptoms 10/08/2015 documented as of this encounter (statuses as of 12/24/2022) [facility] History of Past illness Narrative* Problem Noted Date Diagnosed Date Resolved Date Irregular menses 10/03/2011 10/27/2012 Other malaise and fatigue 12/30/2004 Myalgia and myositis, unspecified 05/08/2014 Chronic factitious illness w ith physical symptoms 10/08/2015 documented as of this encounter (statuses as of 12/26/2022) [facility] History of Past illness Narrative* Problem Noted Date Diagnosed Date Resolved Date Irregular menses 10/03/2011 10/27/2012 Other malaise and fatigue 12/30/2004 Myalgia and myositis, unspecified 05/08/2014 Chronic factitious illness w ith physical symptoms 10/08/2015 documented as of this encounter (statuses as of 12/30/2022) [facility] History of Past illness Narrative* Problem Noted Date Diagnosed Date Resolved Date Irregular menses 10/03/2011 10/27/2012 Other malaise and fatigue 12/30/2004 Myalgia and myositis, unspecified 05/08/2014 Chronic factitious illness w ith physical symptoms 10/08/2015 documented as of this encounter (statuses as of 01/30/2023) [facility] History of Past illness Narrative* Problem Noted Date Diagnosed Date Resolved Date Irregular menses 10/03/2011 10/27/2012 Other malaise and fatigue 12/30/2004 Myalgia and myositis, unspecified 05/08/2014 Chronic factitious illness w ith physical symptoms 10/08/2015 documented as of this encounter (statuses as of 02/09/2023) [facility] History of Past illness Narrative* Problem Noted Date Diagnosed Date Resolved Date Irregular menses 10/03/2011 10/27/2012 Other malaise and fatigue 12/30/2004 Myalgia and myositis, unspecified 05/08/2014 Chronic factitious illness w ith physical symptoms 10/08/2015 documented as of this encounter (statuses as of 02/22/2023) [facility] History of Past illness Narrative* Problem Noted Date Diagnosed Date Resolved Date Irregular menses 10/03/2011 10/27/2012 Other malaise and fatigue 12/30/2004 Myalgia and myositis, unspecified 05/08/2014 Chronic factitious illness w ith physical symptoms 10/08/2015 documented as of this encounter (statuses as of 02/22/2023) [facility] History of Past illness Narrative* Problem Noted Date Diagnosed Date Resolved Date Irregular menses 10/03/2011 10/27/2012 Other malaise and fatigue 12/30/2004 Myalgia and myositis, unspecified 05/08/2014 Chronic factitious illness w ith physical symptoms 10/08/2015 documented as of this encounter (statuses as of 02/22/2023) [facility] History of Past illness Narrative* Problem Noted Date Diagnosed Date Resolved Date Irregular menses 10/03/2011 10/27/2012 Other malaise and fatigue 12/30/2004 Myalgia and myositis, unspecified 05/08/2014 Chronic factitious illness w ith physical symptoms 10/08/2015 documented as of this encounter (statuses as of 03/03/2023) [facility] History of Past illness Narrative* Problem Noted Date Diagnosed Date Resolved Date Irregular menses 10/03/2011 10/27/2012 Other malaise and fatigue 12/30/2004 Myalgia and myositis, unspecified 05/08/2014 Chronic factitious illness w ith physical symptoms 10/08/2015 documented as of this encounter (statuses as of 03/25/2023) [facility] History of Past illness Narrative* Problem Noted Date Diagnosed Date Resolved Date Irregular menses 10/03/2011 10/27/2012 Other malaise and fatigue 12/30/2004 Myalgia and myositis, unspecified 05/08/2014 Chronic factitious illness w ith physical symptoms 10/08/2015 documented as of this encounter (statuses as of 05/23/2023) [facility] History of Past illness Narrative* Problem Noted Date Diagnosed Date Resolved Date Irregular menses 10/03/2011 10/27/2012 Other malaise and fatigue 12/30/2004 Myalgia and myositis, unspecified 05/08/2014 Chronic factitious illness w ith physical symptoms 10/08/2015 documented as of this encounter (statuses as of 05/27/2023) [facility] History of Past illness Narrative* Problem Noted Date Diagnosed Date Resolved Date Irregular menses 10/03/2011 10/27/2012 Other malaise and fatigue 12/30/2004 Myalgia and myositis, unspecified 05/08/2014 Chronic factitious illness w ith physical symptoms 10/08/2015 documented as of this encounter (statuses as of 06/11/2023) [facility] History of Past illness Narrative* Problem Noted Date Diagnosed Date Resolved Date Irregular menses 10/03/2011 10/27/2012 Other malaise and fatigue 12/30/2004 Myalgia and myositis, unspecified 05/08/2014 Chronic factitious illness w ith physical symptoms 10/08/2015 documented as of this encounter (statuses as of 06/11/2023) [facility] History of Past illness Narrative* Problem Noted Date Diagnosed Date Resolved Date Irregular menses 10/03/2011 10/27/2012 Other malaise and fatigue 12/30/2004 Myalgia and myositis, unspecified 05/08/2014 Chronic factitious illness w ith physical symptoms 10/08/2015 documented as of this encounter (statuses as of 07/08/2023) [facility] History of Past illness Narrative* Problem Noted Date Diagnosed Date Resolved Date Irregular menses 10/03/2011 10/27/2012 Other malaise and fatigue 12/30/2004 Myalgia and myositis, unspecified 05/08/2014 Chronic factitious illness w ith physical symptoms 10/08/2015 documented as of this encounter (statuses as of 07/08/2023) [facility] History of Past illness Narrative* Problem Noted Date Diagnosed Date Resolved Date Irregular menses 10/03/2011 10/27/2012 Other malaise and fatigue 12/30/2004 Myalgia and myositis, unspecified 05/08/2014 Chronic factitious illness w ith physical symptoms 10/08/2015 documented as of this encounter (statuses as of 07/22/2023) [facility] History of Past illness Narrative* Problem Noted Date Diagnosed Date Resolved Date Irregular menses 10/03/2011 10/27/2012 Other malaise and fatigue 12/30/2004 Myalgia and myositis, unspecified 05/08/2014 Chronic factitious illness w ith physical symptoms 10/08/2015 documented as of this encounter (statuses as of 07/27/2023) [facility] History of Past illness Narrative* Problem Noted Date Diagnosed Date Resolved Date Irregular menses 10/03/2011 10/27/2012 Other malaise and fatigue 12/30/2004 Myalgia and myositis, unspecified 05/08/2014 Chronic factitious illness w ith physical symptoms 10/08/2015 documented as of this encounter (statuses as of 07/29/2023) [facility] History of Past illness Narrative* Problem Noted Date Diagnosed Date Resolved Date Irregular menses 10/03/2011 10/27/2012 Other malaise and fatigue 12/30/2004 Myalgia and myositis, unspecified 05/08/2014 Chronic factitious illness w ith physical symptoms 10/08/2015 documented as of this encounter (statuses as of 08/01/2023) [facility] History of Past illness Narrative* Problem Noted Date Diagnosed Date Resolved Date Irregular menses 10/03/2011 10/27/2012 Other malaise and fatigue 12/30/2004 Myalgia and myositis, unspecified 05/08/2014 Chronic factitious illness w ith physical symptoms 10/08/2015 documented as of this encounter (statuses as of 08/03/2023) [facility] of Past illness Narrative* Problem Noted Date Diagnosed Date Resolved Date Irregular menses 10/03/2011 10/27/2012 Other malaise and fatigue 12/30/2004 Myalgia and myositis, unspecified 05/08/2014 Chronic factitious illness w ith physical symptoms 10/08/2015 documented as of this encounter (statuses as of 08/04/2023) [facility] [place] + Plan note No data available for this section [facility] Evaluation note* Diagnosis Cough Moderate persistent asthma with acute exacerbation documented in this encounter [facility] note* Diagnosis Sinobronchitis- Primary Unspecified sinusitis (chronic) Otalgia of both ears Otalgia, unspecified Obesity, Class III, BMI >= 40 Morbid obesity Seizure disorder (HCC) Unspecified epilepsy without mention of intractable epilepsy Arthritis of knee Unspecified arthropathy, lower leg Moderate persistent asthma with acute exacerbation Nasal congestion Other diseases of nasal cavity and sinuses Dysuria documented in this encounter [facility] note* Diagnosis Cough Moderate persistent asthma with acute exacerbation Sinobronchitis Unspecified sinusitis (chronic) Otalgia of both ears Otalgia, unspecified documented in this encounter [facility] note* Diagnosis Skin lesion- Primary Unspecified disorder of skin and subcutaneous tissue documented in this encounter [facility] note* Diagnosis Sinobronchitis Unspecified sinusitis (chronic) documented in this encounter [facility] note* Diagnosis Onset Date Resolution Status Chest pain acute Dyspnea on exertion acute Generalized seizure disorder chronic History of mental retardation chronic Acute bilateral otitis media acute Acute bronchitis acute [facility] [place] Work Phone: Evaluation note* Diagnosis Decreased urine stream- Primary Slowing of urinary stream Bilateral flank pain Abdominal pain, unspecified site Sinobronchitis Unspecified sinusitis (chronic) Acute cough documented in this encounter [facility] note* Diagnosis Viral illness- Primary Unspecified viral infection, in conditions classified elsewhere and of unspecified site Acute cough documented in this encounter [facility] note* Diagnosis Bilateral flank pain- Primary Abdominal pain, unspecified site Decreased urine stream Slowing of urinary stream Calcium oxalate crystals in urine Other nonspecific finding on examination of urine documented in this encounter [facility] note* Diagnosis Sinobronchitis- Primary Unspecified sinusitis (chronic) Acute cough SOB (shortness of breath) Shortness of breath documented in this encounter [facility] note* Diagnosis Acute cough SOB (shortness of breath) Shortness of breath documented in this encounter [facility] note* Diagnosis URI, acute- Primary Acute upper respiratory infections of unspecified site Acute recurrent sinusitis, unspecified location [facility] noteNo assessment information availableWPome[facility] Work Phone: Evaluation note* Diagnosis Sinobronchitis- Primary Unspecified sinusitis (chronic) Rhinorrhea Other diseases of nasal cavity and sinuses Moderate persistent asthma with acute exacerbation Suspected COVID-19 virus infection [facility]* Diagnosis Encounter for screening mammogram for breast cancer [facility] Diagnosis Elevated glucose- Primary Other abnormal glucose Sinobronchitis Unspecified sinusitis (chronic) Moderate persistent asthma with acute exacerbation [facility]* Diagnosis Sinobronchitis Unspecified sinusitis (chronic) [facility] Diagnosis Moderate persistent asthma with acute exacerbation- Primary Acute cough Sinus congestion Other diseases of nasal cavity and sinuses Rhinorrhea Other diseases of nasal cavity and sinuses Acute pain of right knee Dysuria [facility] Diagnosis Wellness examination- Primary Yeast infection [...] this encounter [facility]* Diagnosis Back pain, unspecified back location, unspecified back pain laterality, unspecified chronicity- Primary Curvature of spine Unspecified curvature of spine Bilateral hip pain Pain in joint, pelvic region and thigh Sinobronchitis Unspecified sinusitis (chronic) Cough, unspecified type Delusional disorders (HCC) Obesity, Class III, BMI 40-49.9 (morbid obesity) (HCC) Morbid obesity Hyperprolactinemia (HCC) Other and unspecified anterior pituitary hyperfunction [facility] Diagnosis Decreased urine stream Slowing of urinary stream Calcium oxalate crystals in urine Other nonspecific finding on examination of urine Bilateral flank pain Abdominal pain, unspecified site [facility] Diagnosis Back pain, unspecified back location, unspecified back pain laterality, unspecified chronicity Curvature of spine Unspecified curvature of spine documented in this encounter [facility] note* Diagnosis Decreased urine stream Slowing of urinary stream Bilateral flank pain Abdominal pain, unspecified site documented in this encounter [facility] [place] note* Diagnosis Onset Date Resolution Status Chest pain chronic Obesity chronic Morbid obesity acute Shortness of breath noneacti ve Hypersomnia noneactive [facility] [place] Work Phone: Evaluation note* Diagnosis Cough, unspecified type documented in this encounter [facility] [place] note* Diagnosis Onset Date Resolution Status Morbid obesity acute Shortness of breath noneacti ve Hypersomnia noneactive [facility] [place] Work Phone: Evaluation note* Diagnosis Acute pain of right knee Rhinorrhea Other diseases of nasal cavity and sinuses documented in this encounter [facility] [place] note* Diagnosis Non-recurrent acute suppurative otitis media of right ear without spontaneous rupture of tympanic membrane- Primary Cough, unspecified type Moderate persistent asthma with acute exacerbation documented in this encounter [facility] note* Diagnosis Moderate persistent asthma with acute exacerbation Cough, unspecified type documented in this encounter [facility] note* Diagnosis Acute cough- Primary documented in this encounter [facility] note* Diagnosis Post-nasal drip- Primary Postnasal drip Chronic cough Cough documented in this encounter [facility] note* Diagnosis Other chest pain- Primary Abnormal nuclear cardiac imaging test Other nonspecific abnormal cardiovascular system function study documented in this encounter [facility] [place] note* Diagnosis Urinary frequency- Primary Urinary incontinence, unspecified type Pelvic pain in female Unspecified symptom associated with female genital organs Obesity, Class III, BMI 40-49.9 (morbid obesity) (HCC) Morbid obesity documented in this encounter [facility] [place] note* Diagnosis Seizure disorder (HCC)- Primary Unspecified epilepsy without mention of intractable epilepsy Back pain, unspecified back location, unspecified back pain laterality, unspecified chronicity Obesity, Class III, BMI 40-49.9 (morbid obesity) (HCC) Morbid obesity Delusional disorders (HCC) documented in this encounter [facility] [place] note* Diagnosis Encounter for screening mammogram for breast cancer documented in this encounter [facility] note* Diagnosis Acute non-recurrent sinusitis, unspecified location- Primary Acute bronchitis, unspecified organism Cough, unspecified type Moderate persistent asthma with acute exacerbation Non-recurrent acute suppurative otitis media of right ear without spontaneous rupture of tympanic membrane Delusional disorder (HCC) Seizure disorder (HCC) Unspecified epilepsy without mention of intractable epilepsy Hyperprolactinemia (HCC) Other and unspecified anterior pituitary hyperfunction * Assessment & Plan Note - Daniel Tan MD - 08/11/2023 2:06 PM EDT Associated Problem(s): Delusional disorder (HCC) Stable Continue current medications. * Assessment & Plan Note - Daniel Tan MD - 08/11/2023 2:06 PM EDT Associated Problem(s): Seizure disorder (HCC) Stable Continue current medications. * Assessment & Plan Note - Daniel Tan MD - 08/11/2023 2:06 PM EDT Associated Problem(s): Hyperprolactinemia (HCC) Stable Monitor [facility] Diagnosis Yeast infection of the skin Candidiasis of skin and nails [facility] Diagnosis Skin tag- Primary Unspecified hypertrophic and atrophic condition of skin Inflamed skin tag Unspecified hypertrophic and atrophic condition of skin [facility] Diagnosis Acute URI- Primary Acute upper respiratory infections of unspecified site Acute cough [facility] Diagnosis Acute bronchitis, unspecified organism- Primary Asthma with acute exacerbation, unspecified asthma severity, unspecified whether persistent Tremor of both hands Need for vaccination Need for prophylactic vaccination and inoculation against unspecified single disease Elevated glucose Other abnormal glucose [facility]* Diagnosis Cough, unspecified type [facility] Diagnosis Acute bronchitis, unspecified organism- Primary Asthma with acute exacerbation, unspecified asthma severity, unspecified whether persistent Acute bronchitis, unspecified organism Asthma with acute exacerbation, unspecified asthma severity, unspecified whether persistent documented in this encounter [facility] [place] note* Diagnosis Acute bronchitis, unspecified organism Asthma with acute exacerbation, unspecified asthma severity, unspecified whether persistent documented in this encounter [facility] [place] note* Diagnosis Cough, unspecified type documented in this encounter [facility] note* Diagnosis Cough, unspecified type documented in this encounter [facility] note* Diagnosis Acute non-recurrent sinusitis, unspecified location- Primary Acute bronchitis, unspecified organism Cough, unspecified type Moderate persistent asthma with acute exacerbation Non-recurrent acute suppurative otitis media of right ear without spontaneous rupture of tympanic membrane Delusional disorder (HCC) Seizure disorder (HCC) Unspecified epilepsy without mention of intractable epilepsy Hyperprolactinemia (HCC) Other and unspecified anterior pituitary hyperfunction Moderate persistent asthma with acute exacerbation Acute bronchitis, unspecified organism Asthma with acute exacerbation, unspecified asthma severity, unspecified whether persistent documented in this encounter [facility] note* Diagnosis Acute non-recurrent sinusitis, unspecified location- Primary Acute bronchitis, unspecified organism Cough, unspecified type Moderate persistent asthma with acute exacerbation Non-recurrent acute suppurative otitis media of right ear without spontaneous rupture of tympanic membrane Delusional disorder (HCC) Seizure disorder (HCC) Unspecified epilepsy without mention of intractable epilepsy Hyperprolactinemia (HCC) Other and unspecified anterior pituitary hyperfunction Acute bronchitis, unspecified organism Asthma with acute exacerbation, unspecified asthma severity, unspecified whether persistent documented in this encounter [facility] [place] note* Diagnosis Acute non-recurrent sinusitis, unspecified location- Primary Acute bronchitis, unspecified organism Cough, unspecified type Moderate persistent asthma with acute exacerbation Non-recurrent acute suppurative otitis media of right ear without spontaneous rupture of tympanic membrane Delusional disorder (HCC) Seizure disorder (HCC) Unspecified epilepsy without mention of intractable epilepsy Hyperprolactinemia (HCC) Other and unspecified anterior pituitary hyperfunction Acute cough documented in this encounter [facility] note* Diagnosis Acute non-recurrent sinusitis, unspecified location- Primary Acute bronchitis, unspecified organism Cough, unspecified type Moderate persistent asthma with acute exacerbation Non-recurrent acute suppurative otitis media of right ear without spontaneous rupture of tympanic membrane Delusional disorder (HCC) Seizure disorder (HCC) Unspecified epilepsy without mention of intractable epilepsy Hyperprolactinemia (HCC) Other and unspecified anterior pituitary hyperfunction Fall, initial encounter- Primary Acute midline low back pain without sciatica Sinobronchitis Unspecified sinusitis (chronic) [facility] Diagnosis Acute non-recurrent sinusitis, unspecified location- Primary Acute bronchitis, unspecified organism Cough, unspecified type Moderate persistent asthma with acute exacerbation Non-recurrent acute suppurative otitis media of right ear without spontaneous rupture of tympanic membrane Delusional disorder (HCC) Seizure disorder (HCC) Unspecified epilepsy without mention of intractable epilepsy Hyperprolactinemia (HCC) Other and unspecified anterior pituitary hyperfunction Fall, initial encounter Acute midline low back pain without sciatica [facility] Diagnosis Acute pain of right knee Acute non-recurrent sinusitis, unspecified location- Primary Acute bronchitis, unspecified organism Cough, unspecified type Moderate persistent asthma with acute exacerbation Non-recurrent acute suppurative otitis media of right ear without spontaneous rupture of tympanic membrane Delusional disorder (HCC) Seizure disorder (HCC) Unspecified epilepsy without mention of intractable epilepsy Hyperprolactinemia (HCC) Other and unspecified anterior pituitary hyperfunction documented in this encounter [facility] note* Diagnosis Acute cough Acute non-recurrent sinusitis, unspecified location- Primary Acute bronchitis, unspecified organism Cough, unspecified type Moderate persistent asthma with acute exacerbation Non-recurrent acute suppurative otitis media of right ear without spontaneous rupture of tympanic membrane Delusional disorder (HCC) Seizure disorder (HCC) Unspecified epilepsy without mention of intractable epilepsy Hyperprolactinemia (HCC) Other and unspecified anterior pituitary hyperfunction [facility] Diagnosis Acute non-recurrent sinusitis, unspecified location- Primary Acute bronchitis, unspecified organism Cough, unspecified type Moderate persistent asthma with acute exacerbation Non-recurrent acute suppurative otitis media of right ear without spontaneous rupture of tympanic membrane Delusional disorder (HCC) Seizure disorder (HCC) Unspecified epilepsy without mention of intractable epilepsy Hyperprolactinemia (HCC) Other and unspecified anterior pituitary hyperfunction URI, acute- Primary Acute upper respiratory infections of unspecified site Moderate persistent asthma with acute exacerbation Chronic cough Cough Acute pain of right knee Acute pain of right knee URI, acute Acute upper respiratory infections of unspecified site Moderate persistent asthma with acute exacerbation Chronic cough Cough documented in this encounter [facility] note* Diagnosis Cough Acute non-recurrent sinusitis, unspecified location- Primary Acute bronchitis, unspecified organism Cough, unspecified type Moderate persistent asthma with acute exacerbation Non-recurrent acute suppurative otitis media of right ear without spontaneous rupture of tympanic membrane Delusional disorder (HCC) Seizure disorder (HCC) Unspecified epilepsy without mention of intractable epilepsy Hyperprolactinemia (HCC) Other and unspecified anterior pituitary hyperfunction [facility] Diagnosis Acute non-recurrent sinusitis, unspecified location- Primary Acute bronchitis, unspecified organism Cough, unspecified type Moderate persistent asthma with acute exacerbation Non-recurrent acute suppurative otitis media of right ear without spontaneous rupture of tympanic membrane Delusional disorder (HCC) Seizure disorder (HCC) Unspecified epilepsy without mention of intractable epilepsy Hyperprolactinemia (HCC) Other and unspecified anterior pituitary hyperfunction Sinobronchitis Unspecified sinusitis (chronic) documented in this encounter [facility] note* Diagnosis Acute non-recurrent sinusitis, unspecified location- Primary Acute bronchitis, unspecified organism Cough, unspecified type Moderate persistent asthma with acute exacerbation Non-recurrent acute suppurative otitis media of right ear without spontaneous rupture of tympanic membrane Delusional disorder (HCC) Seizure disorder (HCC) Unspecified epilepsy without mention of intractable epilepsy Hyperprolactinemia (HCC) Other and unspecified anterior pituitary hyperfunction Acute pain of right knee URI, acute Acute upper respiratory infections of unspecified site Moderate persistent asthma with acute exacerbation Chronic cough Cough documented in this encounter [facility] note* Diagnosis Acute non-recurrent sinusitis, unspecified location- Primary Acute bronchitis, unspecified organism Cough, unspecified type Moderate persistent asthma with acute exacerbation Non-recurrent acute suppurative otitis media of right ear without spontaneous rupture of tympanic membrane Delusional disorder (HCC) Seizure disorder (HCC) Unspecified epilepsy without mention of intractable epilepsy Hyperprolactinemia (HCC) Other and unspecified anterior pituitary hyperfunction Chronic cough- Primary Cough documented in this encounter [facility] note* Diagnosis Acute non-recurrent sinusitis, unspecified location- Primary Acute bronchitis, unspecified organism Cough, unspecified type Moderate persistent asthma with acute exacerbation Non-recurrent acute suppurative otitis media of right ear without spontaneous rupture of tympanic membrane Delusional disorder (HCC) Seizure disorder (HCC) Unspecified epilepsy without mention of intractable epilepsy Hyperprolactinemia (HCC) Other and unspecified anterior pituitary hyperfunction Other chest pain- Primary Morbid obesity (HCC) Morbid obesity Abnormal nuclear cardiac imaging test Other nonspecific abnormal cardiovascular system function study Encounter for screening for cardiovascular disorders Screening for other and unspecified cardiovascular conditions documented in this encounter [facility] note* Diagnosis Acute non-recurrent sinusitis, unspecified location- Primary Acute bronchitis, unspecified organism Cough, unspecified type Moderate persistent asthma with acute exacerbation (HCC) Non-recurrent acute suppurative otitis media of right ear without spontaneous rupture of tympanic membrane Delusional disorder (HCC) Seizure disorder (HCC) Unspecified epilepsy without mention of intractable epilepsy Hyperprolactinemia (HCC) Other and unspecified anterior pituitary hyperfunction Encounter for screening mammogram for breast cancer [facility] Diagnosis Acute non-recurrent sinusitis, unspecified location- Primary Acute bronchitis, unspecified organism Cough, unspecified type Moderate persistent asthma with acute exacerbation (HCC) Non-recurrent acute suppurative otitis media of right ear without spontaneous rupture of tympanic membrane Delusional disorder (HCC) Seizure disorder (HCC) Unspecified epilepsy without mention of intractable epilepsy Hyperprolactinemia (HCC) Other and unspecified anterior pituitary hyperfunction Chronic low back pain, unspecified back pain laterality, unspecified whether sciatica present- Primary Chronic pain of both knees documented in this encounter [facility] note* Diagnosis Acute non-recurrent sinusitis, unspecified location- Primary Acute bronchitis, unspecified organism Cough, unspecified type Moderate persistent asthma with acute exacerbation (HCC) Non-recurrent acute suppurative otitis media of right ear without spontaneous rupture of tympanic membrane Delusional disorder (HCC) Seizure disorder (HCC) Unspecified epilepsy without mention of intractable epilepsy Hyperprolactinemia (HCC) Other and unspecified anterior pituitary hyperfunction Asthma with acute exacerbation, unspecified asthma severity, unspecified whether persistent (HCC) Moderate persistent asthma with acute exacerbation (HCC) documented in this encounter [facility] note* Diagnosis Acute non-recurrent sinusitis, unspecified location- Primary Acute bronchitis, unspecified organism Cough, unspecified type Moderate persistent asthma with acute exacerbation (HCC) Non-recurrent acute suppurative otitis media of right ear without spontaneous rupture of tympanic membrane Delusional disorder (HCC) Seizure disorder (HCC) Unspecified epilepsy without mention of intractable epilepsy Hyperprolactinemia (HCC) Other and unspecified anterior pituitary hyperfunction Seizure disorder (HCC)- Primary Unspecified epilepsy without mention of intractable epilepsy Moderate persistent asthma with acute exacerbation (HCC) Acute pain of left knee Acute left ankle pain Acute bronchitis, unspecified organism [facility] Diagnosis Acute non-recurrent sinusitis, unspecified location- Primary Acute bronchitis, unspecified organism Cough, unspecified type Moderate persistent asthma with acute exacerbation (HCC) Non-recurrent acute suppurative otitis media of right ear without spontaneous rupture of tympanic membrane Delusional disorder (HCC) Seizure disorder (HCC) Unspecified epilepsy without mention of intractable epilepsy Hyperprolactinemia (HCC) Other and unspecified anterior pituitary hyperfunction Acute pain of left knee Acute left ankle pain Acute bronchitis, unspecified organism [facility] Diagnosis Acute non-recurrent sinusitis, unspecified location- Primary Acute bronchitis, unspecified organism Cough, unspecified type Moderate persistent asthma with acute exacerbation (HCC) Non-recurrent acute suppurative otitis media of right ear without spontaneous rupture of tympanic membrane Delusional disorder (HCC) Seizure disorder (HCC) Unspecified epilepsy without mention of intractable epilepsy Hyperprolactinemia (HCC) Other and unspecified anterior pituitary hyperfunction Moderate persistent asthma with acute exacerbation (HCC) Rhinorrhea Other diseases of nasal cavity and sinuses [facility] Diagnosis Acute non-recurrent sinusitis, unspecified location- Primary Acute bronchitis, unspecified organism Cough, unspecified type Moderate persistent asthma with acute exacerbation (HCC) Non-recurrent acute suppurative otitis media of right ear without spontaneous rupture of tympanic membrane Delusional disorder (HCC) Seizure disorder (HCC) Unspecified epilepsy without mention of intractable epilepsy Hyperprolactinemia (HCC) Other and unspecified anterior pituitary hyperfunction Annual physical exam- Primary Routine general medical examination at a health care facility Acute cough Chronic pain of both knees Class 3 severe obesity with body mass index (BMI) of 50.0 to 59.9 in adult, unspecified obesity type, unspecified whether serious comorbidity present (HCC) Seizure disorder (HCC) Unspecified epilepsy without mention of intractable epilepsy Mild intermittent asthma with status asthmaticus (HCC) Unspecified asthma, with status asthmaticus Delusional disorders (HCC) Conversion disorder [facility] Diagnosis Acute non-recurrent sinusitis, unspecified location- Primary Acute bronchitis, unspecified organism Cough, unspecified type Moderate persistent asthma with acute exacerbation (HCC) Non-recurrent acute suppurative otitis media of right ear without spontaneous rupture of tympanic membrane Delusional disorder (HCC) Seizure disorder (HCC) Unspecified epilepsy without mention of intractable epilepsy Hyperprolactinemia (HCC) Other and unspecified anterior pituitary hyperfunction Menorrhagia with irregular cycle- Primary Excessive or frequent menstruation documented in this encounter [facility] Discharge instructions No data available for this section [facility] Progress note No data available for this section [facility] Reason for referral (narrative)* Diagnostic Procedure Only (Urgent) - Authorized Specialty Diagnoses / Procedures Referred By Yvan t Referred To Contact US IMAGING Diagnoses Decreased urine stream Bilateral flank pain Procedures US KIDNEY/BLADDER US RETROPERITONEAL REAL TIME W/IMAGE COMPLETE Idalia Lewis APRN.CNP [address] [place] [address] [facility] Referral ID Status Reason Start Date Expiration Date Visits Requested Visits Authorized [id number] Authorized Auto-Generat ed Referral 04/04/2023 1 1 [facility] for referral (narrative)* Diagnostic Procedure Only (Routine) - Pending Review Specialty Diagnoses / Procedures Referred By Yvan hare Referred To Contact BR IMAG[facility] Diagnoses Encounter for screening mammogram for breast cancer Procedures AUGIE SCREENING SCREENING MAMMOGRAPHY BI 2-VIEW BREAST INC CAD Daniel Tan MD [address] [place] [address] [facility] [address] [place] [address] Referral ID Status Reason Start Date Expiration Date Visits Requested Visits Authorized [id number] Pending Review Auto-Generat ed Referral 08/20/2022 09/19/2023 1 1 [facility] for referral (narrative)* Diagnostic Procedure Only (Routine) - Closed Specialty Diagnoses / Procedures Referred By Marioac t Referred To Contact XR IMAGING Diagnoses Acute pain of right knee Procedures XR KNEE LIMITED 2V AP/LAT RIGHT RADIOLOGIC EXAMINATION KNEE 1/2 VIEWS Idalia Lewis APRN.CNP [address] [place] [address] [place] [address] Referral ID Status Reason Start Date Expiration Date V isits Requested Visits Authorized [id number] Closed Auto-Generate d Referral 12/11/2022 01/10/2024 1 1 [facility] for referral (narrative)* Outpatient Procedure (Routine) - Authorized Specialty Diagnoses / Procedures Referred By Contac t Referred To Contact [facility] Diagnoses Moderate persistent asthma with acute exacerbation Procedures NITRIC OXIDE, EXHALED NITRIC OXIDE GAS DETERMINATION Idalia Lewis APRN.CNP [address] [place] [address] [address] Referral ID Status Reason Start Date Expiration Date Visits Requested Visits Authorized [id number] Authorized Auto-Generat ed Referral 12/24/2022 01/23/2024 1 1 * Outpatient Procedure (Routine) - Pending Review Specialty Diagnoses / Procedures Referred By Contac t Referred To Contact [facility] Diagnoses Moderate persistent asthma with acute exacerbation Procedures LUNG VOLUMES Idalia Lewis APRN.MILLER HEAD ASSISTANT WET PROCESS [address] [place] [address] [address] Referral ID Status Reason Start Date Expiration Date Visits Requested Visits Authorized [id number] Pending Review Auto-Generat ed Referral 12/24/2022 01/23/2024 1 1 * Outpatient Procedure (Routine) - Authorized Specialty Diagnoses / Procedures Referred By Contac t Referred To Contact [facility] Diagnoses Moderate persistent asthma with acute exacerbation Procedures SPIROMETRY - BASELINE AND POST DILATOR BRNCDILAT RSPSE SPMTRY PRE&POST-BRNCDILAT ADMIdalia Valentin APRN.CNP [address] [place] [address] Respiratory [place] [address] [place] [address] Referral ID Status Reason Start Date Expiration Date Visits Requested Visits Authorized [id number] Authorized Auto-Generat ed Referral 12/24/2022 01/23/2024 1 1 [facility] for referral (narrative)* Diagnostic Procedure Only (Routine) - Authorized Specialty Diagnoses / Procedures Referred By Contac t Referred To Contact XR IMAGING Diagnoses Back pain, unspecified back location, unspecified back pain laterality, unspecified chronicity Curvature of spine Procedures XR SCOLIOSIS PA STAND/LAT 2V RADEX ENTIR THRC LMBR CRV SAC SPI W/SKULL 2/3 Daniel Paredes MD [address] [place] [address] [place] [address] Referral ID Status Reason Start Date Expiration Date Visits Requested Visits Authorized [id number] Authorized Auto-Generat ed Referral 02/29/2024 1 1 [facility] for referral (narrative)* Diagnostic Procedure Only (Routine) - Closed Specialty Diagnoses / Procedures Referred By Contac t Referred To Contact XR IMAGING Diagnoses Back pain, unspecified back location, unspecified back pain laterality, unspecified chronicity Curvature of spine Procedures XR SCOLIOSIS PA STAND/LAT 2V RADEX ENTIR THRC LMBR CRV SAC SPI W/SKULL 2/3 Daniel Paredes MD [address] [place] [address] [place] [address] Referral ID Status Reason Start Date Expiration Date V isits Requested Visits Authorized [id number] Closed Auto-Generate d Referral 01/30/2023 02/29/2024 1 1 [facility] for referral (narrative)* Diagnostic Procedure Only (Urgent) - Closed Specialty Diagnoses / Procedures Referred By Contac t Referred To Contact US IMAGING Diagnoses Decreased urine stream Bilateral flank pain Procedures US KIDNEY/BLADDER US RETROPERITONEAL REAL TIME W/IMAGE COMPLETE Idalia Lewis, ARYAN [address] [place] [address] [place] [address] Referral ID Status Reason Start Date Expiration Date V isits Requested Visits Authorized [id number] Closed Auto-Generate d Referral 03/05/2022 04/04/2023 1 1 [facility] for referral (narrative)* Diagnostic Procedure Only (Routine) - Pending Review Specialty Diagnoses / Procedures [facility] To [facility] BR IM[facility]ING Diagnoses Encounter for screening mammogram for breast cancer Procedures AUGIE SCREENING SCREENING MAMMOGRAPHY BI 2-VIEW BREAST INC CAD Daniel Tan MD [address] [place] [address] Br Imaging [address] [place] [address] Referral ID Status Reason Start Date Expiration Date Visits Requested Visits Authorized [id number] Pending Review Auto-Generat ed Referral 07/29/2023 08/27/2024 1 1 [facility] for referral (narrative)* Outpatient Procedure (Routine) - Authorized Specialty Diagnoses / Procedures [facility] Diagnoses Asthma with acute exacerbation, unspecified asthma severity, unspecified whether persistent Procedures SPIROMETRY - BASELINE AND POST DILATOR BRNCDILAT RSPSE SPMTRY PRE&POST-BRNCDILAT ADMDaniel Roche MD [address] [place] [address] Respiratory [place] [address] [place] [address] Referral ID Status Reason Start Date Expiration Date Visits Requested Visits Authorized [id number] Authorized Auto-Generat ed Referral 10/09/2023 11/07/2024 1 1 [facility] for referral (narrative)* Diagnostic Procedure Only (Routine) - Closed Specialty Diagnoses / Procedures Referred By Contac t Referred To Contact XR IMAGING Diagnoses Fall, initial encounter Acute midline low back pain without sciatica Procedures XR LUMBAR GENERAL 3V AP/LAT/L5-S1 RADEX SPINE LUMBOSACRAL 2/3 VIEWS Idalia Lewis APRN.MILLER HEAD ASSISTANT WET PROCESS [address] [place] [address] [place] [address] Referral ID Status Reason Start Date Expiration Date V isits Requested Visits Authorized [id number] Closed Auto-Generate d Referral 12/31/2023 01/29/2025 1 1 [facility] for referral (narrative)* Diagnostic Procedure Only (Routine) - Closed Specialty Diagnoses / Procedures Referred By Contac t Referred To Contact XR IMAGING Diagnoses Acute pain of right knee Procedures XR KNEE LIMITED 2V AP/LAT RIGHT RADIOLOGIC EXAMINATION KNEE 1/2 VIEWS Idalia Lewis APRN.MILLER HEAD ASSISTANT WET PROCESS [address] [place] [address] [place] [address] Referral ID Status Reason Start Date Expiration Date V isits Requested Visits Authorized [id number] Closed Auto-Generate d Referral 12/11/2022 01/10/2024 1 1 [facility] for referral (narrative)* Diagnostic Procedure Only (Routine) - Closed Specialty Diagnoses / Procedures Referred By Contac t Referred To Contact XR IMAGING Diagnoses Acute pain of right knee Procedures XR KNEE LIMITED 2V AP/LAT RIGHT RADIOLOGIC EXAMINATION KNEE 1/2 VIEWS Idalia Lewis APRN.MILLER HEAD ASSISTANT WET PROCESS [address] [place] [address] [place] [address] Referral ID Status Reason Start Date Expiration Date V isits Requested Visits Authorized [id number] Closed Auto-Generate d Referral 01/21/2024 02/19/2025 1 1 [facility] for referral (narrative)No reason for referral information availableWPomerene Hospital Work Phone: [facility] Narrative* Diagnostic Procedure Only (Routine) - Closed Specialty Diagnoses / Procedures Referred By Contac t Referred To Contact XR IMAGING Diagnoses Back pain, unspecified back location, unspecified back pain laterality, unspecified chronicity Curvature of spine Procedures XR SCOLIOSIS PA STAND/LAT 2V RADEX ENTIR THRC LMBR CRV SAC SPI W/SKULL 2/3 VW Daniel Tan MD [address] [place] [address] [place] [address] Referral ID Status Reason Start Date Expiration Date V isits Requested Visits Authorized [id number] Closed Auto-Generate d Referral 01/30/2023 02/29/2024 1 1 [facility] for visit Narrative* Diagnostic Procedure Only (Urgent) - Closed Specialty Diagnoses / Procedures Referred By Contac t Referred To Contact US IMAGING Diagnoses Decreased urine stream Bilateral flank pain Procedures US KIDNEY/BLADDER US RETROPERITONEAL REAL TIME W/IMAGE COMPLETE Idaila Lewis APRN.MILLER HEAD ASSISTANT WET PROCESS [address] [place] [address] [place] [address] Referral ID Status Reason Start Date Expiration Date V isits Requested Visits Authorized [id number] Closed Auto-Generate d Referral 03/05/2022 04/04/2023 1 1 [facility] for visit Narrative* Diagnostic Procedure Only (Routine) - Closed Specialty Diagnoses / Procedures Referred By Contac t Referred To Contact XR IMAGING Diagnoses Fall, initial encounter Acute midline low back pain without sciatica Procedures XR LUMBAR GENERAL 3V AP/LAT/L5-S1 RADEX SPINE LUMBOSACRAL 2/3 VIEWS Idalia Lewis APRN.MILLER HEAD ASSISTANT WET PROCESS [address] [place] [address] [place] [address] Referral ID Status Reason Start Date Expiration Date V isits Requested Visits Authorized [id number] Closed Auto-Generate d Referral 12/31/2023 01/29/2025 1 1 [facility] for visit Narrative* Diagnostic Procedure Only (Routine) - Closed Specialty Diagnoses / Procedures Referred By Contac t Referred To Contact XR IMAGING Diagnoses Acute pain of right knee Procedures XR KNEE LIMITED 2V AP/LAT RIGHT RADIOLOGIC EXAMINATION KNEE 1/2 VIEWS Idalia Lewis, LAZARO.MILLER HEAD ASSISTANT WET PROCESS [address] [place] [address] [place] [address] Referral ID Status Reason Start Date Expiration Date V isits Requested Visits Authorized [id number] Closed Auto-Generate d Referral 12/11/2022 01/10/2024 1 1 [facility] for visit Narrative* Diagnostic Procedure Only (Routine) - Closed Specialty Diagnoses / Procedures Referred By Contac t Referred To Contact XR IMAGING Diagnoses Acute pain of right knee Procedures XR KNEE LIMITED 2V AP/LAT RIGHT RADIOLOGIC EXAMINATION KNEE 1/2 VIEWS Idalia Lewis, DAIRY INSPECTOR.MILLER HEAD ASSISTANT WET PROCESS [address] [place] [address] [place] [address] Referral ID Status Reason Start Date Expiration Date V isits Requested Visits Authorized [id number] Closed Auto-Generate d Referral 01/21/2024 02/19/2025 1 1 [facility] Summary Purpose Family History Relationship Condition Age at Onset Recorded Date/T jennifer mother Asthma Unknown father Cardiac disease Unknown Seizure Unknown brother Seizure Unknown sister Myocardial infarction Unknown Cardiac disease Unknown grandmother Diabetes mellitus Unknown Cerebrovascular accident (CVA) Unknown Advance Directives Advance Directive Response Recorded Date/ Time Advance Directives No May 6:35pm Living Will No June 16 021 5:12pm Power of Medical Assistant Float No June 16, 2020 5:12pm Advance Directive Response Recorded Date/ Time Advance Directives No May 5:35pm Living Will No June 16 021 4:12pm Power of Medical Assistant Float No June 16, 2020 4:12pm Advance Directive Response Recorded Date/ Time Advance Directives No May 5:35pm Living Will No April 25 5:17pm Power of Medical Assistant Float No April 25 5:17pm Advance Directive Response Recorded Date/ Time Advance Directives No May 6:35pm Living Will No July 14, 2022 7:41pm Power of Medical Assistant Float No July 14 7:41pm Advance Directive Response Recorded Date/ Time Advance Directives No May 6:35pm Living Will No September 18, 2022 6 :45pm Power of Medical Assistant Float No September 18, 2022 6:45pm Advance Directive Response Recorded Date/ Time Advance Directives No May 5:35pm Living Will No September 18, 2022 5 :45pm Power of Medical Assistant Float No September 18, 2022 5:45pm Advance Directive Response Recorded Date/ Time Advance Directives No May 5:35pm Living Will No May 14 3:15pm Power of Medical Assistant Float No May 14, 2023 3:15pm Advance Directive Response Recorded Date/ Time Advance Directives No May 6:35pm Living Will No July 08, 2023 4:02pm Power of Medical Assistant Float No July 07 4:02pm Advance Directive Response Recorded Date/ Time Advance Directives No May 6:35pm Living Will No August 31, 2023 8 :05pm Power of Medical Assistant Float No August 31, 2023 8:05pm Advance Directive Response Recorded Date/ Time Advance Directives No May 6:35pm Reason for Referral Specialty Diagnoses / Procedures Referred By Contac t Referred To Contact Dermatology Diagnoses Skin lesion Procedures [facility] [address] [place] [address] Referral ID Status Reason Start Date Expiration Date Visits Requested Visits Authorized [id number] Ref Not Required PCP Requested Referral 12/10/2021 12/10/2022 1 1 Specialty Diagnoses / Procedures Referred By Contac t Referred To Contact CT IMAGING Diagnoses Decreased urine stream Calcium oxalate crystals in urine Bilateral flank pain Procedures CT FLANK WO IVCON CT ABD & PELVIS W/O CONTRAST Mary Polanco, DAIRY INSPECTOR.MILLER HEAD ASSISTANT WET PROCESS [address] [place] [address] Ct Imaging Referral ID Status Reason Start Date Expiration Date Visits Requested Visits Authorized [id number] Authorized Auto-Generat ed Referral 05/07/2022 06/06/2023 1 1 Specialty Diagnoses / Procedures Referred By Contac t Referred To Contact CT IMAGING Diagnoses Decreased urine stream Calcium oxalate crystals in urine Bilateral flank pain Procedures CT FLANK WO IVCON CT ABD & PELVIS W/O CONTRAST Mary Polanco, DAIRY INSPECTOR.MILLER HEAD ASSISTANT WET PROCESS [address] [place] [address] [place] [address] Referral ID Status Reason Start Date Expiration Date V isits Requested Visits Authorized [id number] Closed Auto-Generate d Referral 05/07/2022 06/06/2023 1 1 Specialty Diagnoses / Procedures Referred By Contac t Referred To Contact Ent - Otolaryngology Diagnoses Post-nasal drip Chronic cough Procedures CONSULT TO ENT OFFICE/OUTPATIENT NEW HIGH MDM 60 MINUTES Idalia Lewis, DAIRY INSPECTOR.MILLER HEAD ASSISTANT WET PROCESS [address] [place] [address] Referral ID Status Reason Start Date Expiration Date Visits Requested Visits Authorized [id number] Authorized PCP Requested Referral 07/08/2023 07/07/2024 1 1 Specialty Diagnoses / Procedures Referred By Contac t Referred To Contact CT IMAGING Diagnoses Other chest pain Abnormal nuclear cardiac imaging test Procedures CTA CORONARY W IVCON CTA HRT CORNRY ART/BYPASS GRFTS CONTRST 3D POST Wilmer Murillo MD [address] [place] [address] [place] [address] Referral ID Status Reason Start Date Expiration Date Visits Requested Visits Authorized [id number] Authorized Auto-Generat ed Referral 07/27/2023 08/25/2024 1 1 Specialty Diagnoses / Procedures Referred By Contac t Referred To Contact Urology Diagnoses Urinary frequency Urinary incontinence, unspecified type Pelvic pain in female Procedures CONSULT TO UROLOGY OFFICE/OUTPATIENT NEW HIGH MDM 60 MINUTES Justine Pitts MD [address] [place] [address] Referral ID Status Reason Start Date Expiration Date Visits Requested Visits Authorized [id number] Authorized PCP Requested Referral 07/28/2023 07/27/2024 1 1 Specialty Diagnoses / Procedures Referred By Contac t Referred To Contact General Surgery Diagnoses Skin tag Inflamed skin tag Procedures CONSULT TO GENERAL SURGERY OFFICE/OUTPATIENT NEW HIGH MDM 60 MINUTES Daniel Tan MD [address] [place] [address] Referral ID Status Reason Start Date Expiration Date Visits Requested Visits Authorized [id number] Authorized PCP Requested Referral 09/01/2023 08/31/2024 1 1 Specialty Diagnoses / Procedures Referred By Contac t Referred To Contact CT IMAGING Diagnoses Encounter for screening for cardiovascular disorders Procedures CTA CORONARY W IVCON CTA HRT CORNRY ART/BYPASS GRFTS CONTRST 3D POST Wilmer Murillo MD [address] [place] [address] [place] [address] Referral ID Status Reason Start Date Expiration Date Visits Requested Visits Authorized [id number] New Request Auto-Generat ed Referral 4 05/04/2025 1 1 Chief Complaint and Reason for Visit Chief Complaint CP CONCERN FOR BRONCHITIS CHEST PAIN CHEST PAIN Reason for Visit Chest pain Dyspnea on exertion Generalized seizure disorder History of mental retardation Acute bilateral otitis media Acute bronchitis Chief Complaint CP CONCERN FOR BRONCHITIS CHEST PAIN CHEST PAIN CHEST PAIN CHEST PAIN Reason for Visit Chest pain Dyspnea on exertion Generalized seizure disorder History of mental retardation Acute bilateral otitis media Acute bronchitis Chief Complaint CP CONCERN FOR BRONCHITIS CHEST PAIN CHEST PAIN CHEST PAIN CHEST PAIN BLEED Reason for Visit Chest pain Dyspnea on exertion Generalized seizure disorder History of mental retardation Acute bilateral otitis media Acute bronchitis Chief Complaint BLEED chest pain Chief Complaint chest pain SEIZURE Chief Complaint 1 y fu PREV PFM PT Shortness of breath HYPERSOMNIA SOB SOB Shortness of breath Reason for Visit Chest pain Obesity Morbid obesity Shortness of breath Hypersomnia Chief Complaint Shortness of breath HYPERSOMNIA SOB SOB Shortness of breath CHEST PAIN Reason for Visit Morbid obesity Shortness of breath Hypersomnia Chief Complaint CHEST PAIN seizure Chief Complaint CHEST PAIN seizure COMPLAINT Chief Complaint Admit Date seizure June 08, 2024 7:46pm Additional Source Comments INFORMATION SOURCE (unrecogn ized section and content) DATE CREATED AUTHOR 10/07/2017 [facility] DATE CREATED AUTHOR AUTHOR'S ORGANIZ ATION 06/01/2019 [facility] ([place]) DATE CREATED AUTHOR AUTHOR'S ORGANIZ ATION 03/12/2024 [facility] DATE CREATED AUTHOR AUTHOR'S ORGANIZ ATION 06/11/2024 [facility] DATE CREATED AUTHOR AUTHOR'S ORGANIZ ATION 09/16/2024 [facility] DATE CREATED AUTHOR AUTHOR'S ORGANIZ ATION 11/13/2024 [facility] Source Comments (unrecognize d section and content) In the event this informatio n is protected by the Federal Confidentiality of Alcohol and Drug Abuse Patient Records regulations: The Federal rules restrict any use of the information to criminally investigate or prosecute any alcohol or drug abuse patient.[facility] the event this information is protected by the Federal Confidentiality of Alcohol and Drug Abuse Patient Records regulations: The Federal rules restrict any use of the information to criminally investigate or prosecute any alcohol or drug abuse patient.[facility] the event this information is protected by the Federal Confidentiality of Alcohol and Drug Abuse Patient Records regulations: The Federal rules restrict any use of the information to criminally investigate or prosecute any alcohol or drug abuse patient.[facility] the event this information is protected by the Federal Confidentiality of Alcohol and Drug Abuse Patient Records regulations: The Federal rules restrict any use of the information to criminally investigate or prosecute any alcohol or drug abuse patient.[facility] the event this information is protected by the Federal Confidentiality of Alcohol and Drug Abuse Patient Records regulations: The Federal rules restrict any use of the information to criminally investigate or prosecute any alcohol or drug abuse patient.[facility] the event this information is protected by the Federal Confidentiality of Alcohol and Drug Abuse Patient Records regulations: The Federal rules restrict any use of the information to criminally investigate or prosecute any alcohol or drug abuse patient.[facility] the event this information is protected by the Federal Confidentiality of Alcohol and Drug Abuse Patient Records regulations: The Federal rules restrict any use of the information to criminally investigate or prosecute any alcohol or drug abuse patient.[facility] the event this information is protected by the Federal Confidentiality of Alcohol and Drug Abuse Patient Records regulations: The Federal rules restrict any use of the information to criminally investigate or prosecute any alcohol or drug abuse patient.[facility] the event this information is protected by the Federal Confidentiality of Alcohol and Drug Abuse Patient Records regulations: The Federal rules restrict any use of the information to criminally investigate or prosecute any alcohol or drug abuse patient.[facility] the event this information is protected by the Federal Confidentiality of Alcohol and Drug Abuse Patient Records regulations: The Federal rules restrict any use of the information to criminally investigate or prosecute any alcohol or drug abuse patient.[facility] the event this information is protected by the Federal Confidentiality of Alcohol and Drug Abuse Patient Records regulations: The Federal rules restrict any use of the information to criminally investigate or prosecute any alcohol or drug abuse patient.[facility] the event this information is protected by the Federal Confidentiality of Alcohol and Drug Abuse Patient Records regulations: The Federal rules restrict any use of the information to criminally investigate or prosecute any alcohol or drug abuse patient.[facility] the event this information is protected by the Federal Confidentiality of Alcohol and Drug Abuse Patient Records regulations: The Federal rules restrict any use of the information to criminally investigate or prosecute any alcohol or drug abuse patient.[facility] the event this information is protected by the Federal Confidentiality of Alcohol and Drug Abuse Patient Records regulations: The Federal rules restrict any use of the information to criminally investigate or prosecute any alcohol or drug abuse patient.[facility] the event this information is protected by the Federal Confidentiality of Alcohol and Drug Abuse Patient Records regulations: The Federal rules restrict any use of the information to criminally investigate or prosecute any alcohol or drug abuse patient.[facility] Campus[facility] the event this information is protected by the Federal Confidentiality of Alcohol and Drug Abuse Patient Records regulations: The Federal rules restrict any use of the information to criminally investigate or prosecute any alcohol or drug abuse patient.[facility] the event this information is protected by the Federal Confidentiality of Alcohol and Drug Abuse Patient Records regulations: The Federal rules restrict any use of the information to criminally investigate or prosecute any alcohol or drug abuse patient.[facility] the event this information is protected by the Federal Confidentiality of Alcohol and Drug Abuse Patient Records regulations: The Federal rules restrict any use of the information to criminally investigate or prosecute any alcohol or drug abuse patient.[facility] the event this information is protected by the Federal Confidentiality of Alcohol and Drug Abuse Patient Records regulations: The Federal rules restrict any use of the information to criminally investigate or prosecute any alcohol or drug abuse patient.[facility] Campus[facility] the event this information is protected by the Federal Confidentiality of Alcohol and Drug Abuse Patient Records regulations: The Federal rules restrict any use of the information to criminally investigate or prosecute any alcohol or drug abuse patient.[facility] Campus[facility] the event this information is protected by the Federal Confidentiality of Alcohol and Drug Abuse Patient Records regulations: The Federal rules restrict any use of the information to criminally investigate or prosecute any alcohol or drug abuse patient.[facility] Campus[facility] the event this information is protected by the Federal Confidentiality of Alcohol and Drug Abuse Patient Records regulations: The Federal rules restrict any use of the information to criminally investigate or prosecute any alcohol or drug abuse patient.[facility] Campus[facility] the event this information is protected by the Federal Confidentiality of Alcohol and Drug Abuse Patient Records regulations: The Federal rules restrict any use of the information to criminally investigate or prosecute any alcohol or drug abuse patient.[facility] Campus[facility] the event this information is protected by the Federal Confidentiality of Alcohol and Drug Abuse Patient Records regulations: The Federal rules restrict any use of the information to criminally investigate or prosecute any alcohol or drug abuse patient.[facility] Campus[facility] the event this information is protected by the Federal Confidentiality of Alcohol and Drug Abuse Patient Records regulations: The Federal rules restrict any use of the information to criminally investigate or prosecute any alcohol or drug abuse patient.[facility] Campus[facility] the event this information is protected by the Federal Confidentiality of Alcohol and Drug Abuse Patient Records regulations: The Federal rules restrict any use of the information to criminally investigate or prosecute any alcohol or drug abuse patient.[facility] Campus[facility] the event this information is protected by the Federal Confidentiality of Alcohol and Drug Abuse Patient Records regulations: The Federal rules restrict any use of the information to criminally investigate or prosecute any alcohol or drug abuse patient.[facility] Campus[facility] the event this information is protected by the Federal Confidentiality of Alcohol and Drug Abuse Patient Records regulations: The Federal rules restrict any use of the information to criminally investigate or prosecute any alcohol or drug abuse patient.[facility] Campus[facility] the event this information is protected by the Federal Confidentiality of Alcohol and Drug Abuse Patient Records regulations: The Federal rules restrict any use of the information to criminally investigate or prosecute any alcohol or drug abuse patient.[facility] CampusIn the event this information is protected by the Federal Confidentiality of Alcohol and Drug Abuse Patient Records regulations: The Federal rules restrict any use of the information to criminally investigate or prosecute any alcohol or drug abuse patient.[facility] Campus[facility] the event this information is protected by the Federal Confidentiality of Alcohol and Drug Abuse Patient Records regulations: The Federal rules restrict any use of the information to criminally investigate or prosecute any alcohol or drug abuse patient.[facility] CampusIn the event this information is protected by the Federal Confidentiality of Alcohol and Drug Abuse Patient Records regulations: The Federal rules restrict any use of the information to criminally investigate or prosecute any alcohol or drug abuse patient.[facility] CampusIn the event this information is protected by the Federal Confidentiality of Alcohol and Drug Abuse Patient Records regulations: The Federal rules restrict any use of the information to criminally investigate or prosecute any alcohol or drug abuse patient.[facility] CampusIn the event this information is protected by the Federal Confidentiality of Alcohol and Drug Abuse Patient Records regulations: The Federal rules restrict any use of the information to criminally investigate or prosecute any alcohol or drug abuse patient.[facility] CampusIn the event this information is protected by the Federal Confidentiality of Alcohol and Drug Abuse Patient Records regulations: The Federal rules restrict any use of the information to criminally investigate or prosecute any alcohol or drug abuse patient.[facility] CampusIn the event this information is protected by the Federal Confidentiality of Alcohol and Drug Abuse Patient Records regulations: The Federal rules restrict any use of the information to criminally investigate or prosecute any alcohol or drug abuse patient.[facility] CampusIn the event this information is protected by the Federal Confidentiality of Alcohol and Drug Abuse Patient Records regulations: The Federal rules restrict any use of the information to criminally investigate or prosecute any alcohol or drug abuse patient.[facility] CampusIn the event this information is protected by the Federal Confidentiality of Alcohol and Drug Abuse Patient Records regulations: The Federal rules restrict any use of the information to criminally investigate or prosecute any alcohol or drug abuse patient.[facility] CampusIn the event this information is protected by the Federal Confidentiality of Alcohol and Drug Abuse Patient Records regulations: The Federal rules restrict any use of the information to criminally investigate or prosecute any alcohol or drug abuse patient.[facility] CampusIn the event this information is protected by the Federal Confidentiality of Alcohol and Drug Abuse Patient Records regulations: The Federal rules restrict any use of the information to criminally investigate or prosecute any alcohol or drug abuse patient.[facility] CampusIn the event this information is protected by the Federal Confidentiality of Alcohol and Drug Abuse Patient Records regulations: The Federal rules restrict any use of the information to criminally investigate or prosecute any alcohol or drug abuse patient.[facility] CampusIn the event this information is protected by the Federal Confidentiality of Alcohol and Drug Abuse Patient Records regulations: The Federal rules restrict any use of the information to criminally investigate or prosecute any alcohol or drug abuse patient.[facility] CampusIn the event this information is protected by the Federal Confidentiality of Alcohol and Drug Abuse Patient Records regulations: The Federal rules restrict any use of the information to criminally investigate or prosecute any alcohol or drug abuse patient.[facility] CampusIn the event this information is protected by the Federal Confidentiality of Alcohol and Drug Abuse Patient Records regulations: The Federal rules restrict any use of the information to criminally investigate or prosecute any alcohol or drug abuse patient.[facility] CampusIn the event this information is protected by the Federal Confidentiality of Alcohol and Drug Abuse Patient Records regulations: The Federal rules restrict any use of the information to criminally investigate or prosecute any alcohol or drug abuse patient.[facility] CampusIn the event this information is protected by the Federal Confidentiality of Alcohol and Drug Abuse Patient Records regulations: The Federal rules restrict any use of the information to criminally investigate or prosecute any alcohol or drug abuse patient.[facility] CampusIn the event this information is protected by the Federal Confidentiality of Alcohol and Drug Abuse Patient Records regulations: The Federal rules restrict any use of the information to criminally investigate or prosecute any alcohol or drug abuse patient.[facility] CampusIn the event this information is protected by the Federal Confidentiality of Alcohol and Drug Abuse Patient Records regulations: The Federal rules restrict any use of the information to criminally investigate or prosecute any alcohol or drug abuse patient.[facility] CampusIn the event this information is protected by the Federal Confidentiality of Alcohol and Drug Abuse Patient Records regulations: The Federal rules restrict any use of the information to criminally investigate or prosecute any alcohol or drug abuse patient.[facility] CampusIn the event this information is protected by the Federal Confidentiality of Alcohol and Drug Abuse Patient Records regulations: The Federal rules restrict any use of the information to criminally investigate or prosecute any alcohol or drug abuse patient.[facility] CampusIn the event this information is protected by the Federal Confidentiality of Alcohol and Drug Abuse Patient Records regulations: The Federal rules restrict any use of the information to criminally investigate or prosecute any alcohol or drug abuse patient.[facility] CampusIn the event this information is protected by the Federal Confidentiality of Alcohol and Drug Abuse Patient Records regulations: The Federal rules restrict any use of the information to criminally investigate or prosecute any alcohol or drug abuse patient.[facility] CampusIn the event this information is protected by the Federal Confidentiality of Alcohol and Drug Abuse Patient Records regulations: The Federal rules restrict any use of the information to criminally investigate or prosecute any alcohol or drug abuse patient.[facility] CampusIn the event this information is protected by the Federal Confidentiality of Alcohol and Drug Abuse Patient Records regulations: The Federal rules restrict any use of the information to criminally investigate or prosecute any alcohol or drug abuse patient.[facility] CampusIn the event this information is protected by the Federal Confidentiality of Alcohol and Drug Abuse Patient Records regulations: The Federal rules restrict any use of the information to criminally investigate or prosecute any alcohol or drug abuse patient.[facility] CampusIn the event this information is protected by the Federal Confidentiality of Alcohol and Drug Abuse Patient Records regulations: The Federal rules restrict any use of the information to criminally investigate or prosecute any alcohol or drug abuse patient.[facility] CampusIn the event this information is protected by the Federal Confidentiality of Alcohol and Drug Abuse Patient Records regulations: The Federal rules restrict any use of the information to criminally investigate or prosecute any alcohol or drug abuse patient.[facility] CampusIn the event this information is protected by the Federal Confidentiality of Alcohol and Drug Abuse Patient Records regulations: The Federal rules restrict any use of the information to criminally investigate or prosecute any alcohol or drug abuse patient.[facility] the event this information is protected by the Federal Confidentiality of Alcohol and Drug Abuse Patient Records regulations: The Federal rules restrict any use of the information to criminally investigate or prosecute any alcohol or drug abuse patient.[facility] CampusIn the event this information is protected by the Federal Confidentiality of Alcohol and Drug Abuse Patient Records regulations: The Federal rules restrict any use of the information to criminally investigate or prosecute any alcohol or drug abuse patient.[facility] CampusIn the event this information is protected by the Federal Confidentiality of Alcohol and Drug Abuse Patient Records regulations: The Federal rules restrict any use of the information to criminally investigate or prosecute any alcohol or drug abuse patient.[facility] the event this information is protected by the Federal Confidentiality of Alcohol and Drug Abuse Patient Records regulations: The Federal rules restrict any use of the information to criminally investigate or prosecute any alcohol or drug abuse patient.[facility] CampusIn the event this information is protected by the Federal Confidentiality of Alcohol and Drug Abuse Patient Records regulations: The Federal rules restrict any use of the information to criminally investigate or prosecute any alcohol or drug abuse patient.[facility] CampusIn the event this information is protected by the Federal Confidentiality of Alcohol and Drug Abuse Patient Records regulations: The Federal rules restrict any use of the information to criminally investigate or prosecute any alcohol or drug abuse patient.[facility] CampusIn the event this information is protected by the Federal Confidentiality of Alcohol and Drug Abuse Patient Records regulations: The Federal rules restrict any use of the information to criminally investigate or prosecute any alcohol or drug abuse patient.[facility] CampusIn the event this information is protected by the Federal Confidentiality of Alcohol and Drug Abuse Patient Records regulations: The Federal rules restrict any use of the information to criminally investigate or prosecute any alcohol or drug abuse patient.[facility] CampusIn the event this information is protected by the Federal Confidentiality of Alcohol and Drug Abuse Patient Records regulations: The Federal rules restrict any use of the information to criminally investigate or prosecute any alcohol or drug abuse patient.[facility] CampusIn the event this information is protected by the Federal Confidentiality of Alcohol and Drug Abuse Patient Records regulations: The Federal rules restrict any use of the information to criminally investigate or prosecute any alcohol or drug abuse patient.[facility] CampusIn the event this information is protected by the Federal Confidentiality of Alcohol and Drug Abuse Patient Records regulations: The Federal rules restrict any use of the information to criminally investigate or prosecute any alcohol or drug abuse patient.[facility] CampusIn the event this information is protected by the Federal Confidentiality of Alcohol and Drug Abuse Patient Records regulations: The Federal rules restrict any use of the information to criminally investigate or prosecute any alcohol or drug abuse patient.[facility] CampusIn the event this information is protected by the Federal Confidentiality of Alcohol and Drug Abuse Patient Records regulations: The Federal rules restrict any use of the information to criminally investigate or prosecute any alcohol or drug abuse patient.[facility] CampusIn the event this information is protected by the Federal Confidentiality of Alcohol and Drug Abuse Patient Records regulations: The Federal rules restrict any use of the information to criminally investigate or prosecute any alcohol or drug abuse patient.[facility] CampusIn the event this information is protected by the Federal Confidentiality of Alcohol and Drug Abuse Patient Records regulations: The Federal rules restrict any use of the information to criminally investigate or prosecute any alcohol or drug abuse patient.[facility] CampusIn the event this information is protected by the Federal Confidentiality of Alcohol and Drug Abuse Patient Records regulations: The Federal rules restrict any use of the information to criminally investigate or prosecute any alcohol or drug abuse patient.[facility] CampusIn the event this information is protected by the Federal Confidentiality of Alcohol and Drug Abuse Patient Records regulations: The Federal rules restrict any use of the information to criminally investigate or prosecute any alcohol or drug abuse patient.[facility] CampusIn the event this information is protected by the Federal Confidentiality of Alcohol and Drug Abuse Patient Records regulations: The Federal rules restrict any use of the information to criminally investigate or prosecute any alcohol or drug abuse patient.[facility] CampusIn the event this information is protected by the Federal Confidentiality of Alcohol and Drug Abuse Patient Records regulations: The Federal rules restrict any use of the information to criminally investigate or prosecute any alcohol or drug abuse patient.[facility] CampusIn the event this information is protected by the Federal Confidentiality of Alcohol and Drug Abuse Patient Records regulations: The Federal rules restrict any use of the information to criminally investigate or prosecute any alcohol or drug abuse patient.[facility] CampusIn the event this information is protected by the Federal Confidentiality of Alcohol and Drug Abuse Patient Records regulations: The Federal rules restrict any use of the information to criminally investigate or prosecute any alcohol or drug abuse patient.[facility] CampusIn the event this information is protected by the Federal Confidentiality of Alcohol and Drug Abuse Patient Records regulations: The Federal rules restrict any use of the information to criminally investigate or prosecute any alcohol or drug abuse patient.[facility] CampusIn the event this information is protected by the Federal Confidentiality of Alcohol and Drug Abuse Patient Records regulations: The Federal rules restrict any use of the information to criminally investigate or prosecute any alcohol or drug abuse patient.[facility] CampusIn the event this information is protected by the Federal Confidentiality of Alcohol and Drug Abuse Patient Records regulations: The Federal rules restrict any use of the information to criminally investigate or prosecute any alcohol or drug abuse patient.[facility] CampusIn the event this information is protected by the Federal Confidentiality of Alcohol and Drug Abuse Patient Records regulations: The Federal rules restrict any use of the information to criminally investigate or prosecute any alcohol or drug abuse patient.[facility] CampusIn the event this information is protected by the Federal Confidentiality of Alcohol and Drug Abuse Patient Records regulations: The Federal rules restrict any use of the information to criminally investigate or prosecute any alcohol or drug abuse patient.[facility] CampusIn the event this information is protected by the Federal Confidentiality of Alcohol and Drug Abuse Patient Records regulations: The Federal rules restrict any use of the information to criminally investigate or prosecute any alcohol or drug abuse patient.[facility] CampusIn the event this information is protected by the Federal Confidentiality of Alcohol and Drug Abuse Patient Records regulations: The Federal rules restrict any use of the information to criminally investigate or prosecute any alcohol or drug abuse patient.[facility] CampusIn the event this information is protected by the Federal Confidentiality of Alcohol and Drug Abuse Patient Records regulations: The Federal rules restrict any use of the information to criminally investigate or prosecute any alcohol or drug abuse patient.[facility] CampusIn the event this information is protected by the Federal Confidentiality of Alcohol and Drug Abuse Patient Records regulations: The Federal rules restrict any use of the information to criminally investigate or prosecute any alcohol or drug abuse patient.[facility] CampusIn the event this information is protected by the Federal Confidentiality of Alcohol and Drug Abuse Patient Records regulations: The Federal rules restrict any use of the information to criminally investigate or prosecute any alcohol or drug abuse patient.[facility] CampusIn the event this information is protected by the Federal Confidentiality of Alcohol and Drug Abuse Patient Records regulations: The Federal rules restrict any use of the information to criminally investigate or prosecute any alcohol or drug abuse patient.[facility] CampusIn the event this information is protected by the Federal Confidentiality of Alcohol and Drug Abuse Patient Records regulations: The Federal rules restrict any use of the information to criminally investigate or prosecute any alcohol or drug abuse patient.[facility] CampusIn the event this information is protected by the Federal Confidentiality of Alcohol and Drug Abuse Patient Records regulations: The Federal rules restrict any use of the information to criminally investigate or prosecute any alcohol or drug abuse patient.[facility] CampusIn the event this information is protected by the Federal Confidentiality of Alcohol and Drug Abuse Patient Records regulations: The Federal rules restrict any use of the information to criminally investigate or prosecute any alcohol or drug abuse patient.[facility] CampusIn the event this information is protected by the Federal Confidentiality of Alcohol and Drug Abuse Patient Records regulations: The Federal rules restrict any use of the information to criminally investigate or prosecute any alcohol or drug abuse patient.[facility] CampusIn the event this information is protected by the Federal Confidentiality of Alcohol and Drug Abuse Patient Records regulations: The Federal rules restrict any use of the information to criminally investigate or prosecute any alcohol or drug abuse patient.[facility] CampusIn the event this information is protected by the Federal Confidentiality of Alcohol and Drug Abuse Patient Records regulations: The Federal rules restrict any use of the information to criminally investigate or prosecute any alcohol or drug abuse patient.[facility] CampusIn the event this information is protected by the Federal Confidentiality of Alcohol and Drug Abuse Patient Records regulations: The Federal rules restrict any use of the information to criminally investigate or prosecute any alcohol or drug abuse patient.[facility]In the event this information is protected by the Federal Confidentiality of Alcohol and Drug Abuse Patient Records regulations: The Federal rules restrict any use of the information to criminally investigate or prosecute any alcohol or drug abuse patient.[facility] CampusIn the event this information is protected by the Federal Confidentiality of Alcohol and Drug Abuse Patient Records regulations: The Federal rules restrict any use of the information to criminally investigate or prosecute any alcohol or drug abuse patient.[facility] CampusIn the event this information is protected by the Federal Confidentiality of Alcohol and Drug Abuse Patient Records regulations: The Federal rules restrict any use of the information to criminally investigate or prosecute any alcohol or drug abuse patient.[facility] CampusIn the event this information is protected by the Federal Confidentiality of Alcohol and Drug Abuse Patient Records regulations: The Federal rules restrict any use of the information to criminally investigate or prosecute any alcohol or drug abuse patient.[facility] CampusIn the event this information is protected by the Federal Confidentiality of Alcohol and Drug Abuse Patient Records regulations: The Federal rules restrict any use of the information to criminally investigate or prosecute any alcohol or drug abuse patient.[facility] CampusIn the event this information is protected by the Federal Confidentiality of Alcohol and Drug Abuse Patient Records regulations: The Federal rules restrict any use of the information to criminally investigate or prosecute any alcohol or drug abuse patient.[facility] CampusIn the event this information is protected by the Federal Confidentiality of Alcohol and Drug Abuse Patient Records regulations: The Federal rules restrict any use of the information to criminally investigate or prosecute any alcohol or drug abuse patient.[facility] CampusIn the event this information is protected by the Federal Confidentiality of Alcohol and Drug Abuse Patient Records regulations: The Federal rules restrict any use of the information to criminally investigate or prosecute any alcohol or drug abuse patient.[facility] CampusIn the event this information is protected by the Federal Confidentiality of Alcohol and Drug Abuse Patient Records regulations: The Federal rules restrict any use of the information to criminally investigate or prosecute any alcohol or drug abuse patient.[facility] CampusIn the event this information is protected by the Federal Confidentiality of Alcohol and Drug Abuse Patient Records regulations: The Federal rules restrict any use of the information to criminally investigate or prosecute any alcohol or drug abuse patient.[facility] CampusIn the event this information is protected by the Federal Confidentiality of Alcohol and Drug Abuse Patient Records regulations: The Federal rules restrict any use of the information to criminally investigate or prosecute any alcohol or drug abuse patient.[facility] the event this information is protected by the Federal Confidentiality of Alcohol and Drug Abuse Patient Records regulations: The Federal rules restrict any use of the information to criminally investigate or prosecute any alcohol or drug abuse patient.[facility] CampusIn the event this information is protected by the Federal Confidentiality of Alcohol and Drug Abuse Patient Records regulations: The Federal rules restrict any use of the information to criminally investigate or prosecute any alcohol or drug abuse patient.[facility] CampusIn the event this information is protected by the Federal Confidentiality of Alcohol and Drug Abuse Patient Records regulations: The Federal rules restrict any use of the information to criminally investigate or prosecute any alcohol or drug abuse patient.[facility]In the event this information is protected by the Federal Confidentiality of Alcohol and Drug Abuse Patient Records regulations: The Federal rules restrict any use of the information to criminally investigate or prosecute any alcohol or drug abuse patient.[facility] CampusIn the event this information is protected by the Federal Confidentiality of Alcohol and Drug Abuse Patient Records regulations: The Federal rules restrict any use of the information to criminally investigate or prosecute any alcohol or drug abuse patient.[facility]In the event this information is protected by the Federal Confidentiality of Alcohol and Drug Abuse Patient Records regulations: The Federal rules restrict any use of the information to criminally investigate or prosecute any alcohol or drug abuse patient.[facility] CampusIn the event this information is protected by the Federal Confidentiality of Alcohol and Drug Abuse Patient Records regulations: The Federal rules restrict any use of the information to criminally investigate or prosecute any alcohol or drug abuse patient.[facility] CampusIn the event this information is protected by the Federal Confidentiality of Alcohol and Drug Abuse Patient Records regulations: The Federal rules restrict any use of the information to criminally investigate or prosecute any alcohol or drug abuse patient.[facility] Campus[facility] the event this information is protected by the Federal Confidentiality of Alcohol and Drug Abuse Patient Records regulations: The Federal rules restrict any use of the information to criminally investigate or prosecute any alcohol or drug abuse patient.[facility] CampusIn the event this information is protected by the Federal Confidentiality of Alcohol and Drug Abuse Patient Records regulations: The Federal rules restrict any use of the information to criminally investigate or prosecute any alcohol or drug abuse patient.[facility] CampusIn the event this information is protected by the Federal Confidentiality of Alcohol and Drug Abuse Patient Records regulations: The Federal rules restrict any use of the information to criminally investigate or prosecute any alcohol or drug abuse patient.[facility] Reason for Visit (unrecogniz ed section and content) Reason Onset Date Comments Refill Request 11/15/2021 Refill Request 11/20/2021 Reason Comments Physical Reason Onset Date Comments [...] ow Specialty Diagnoses / Procedures Referred By Yvan t Referred To Contact Urology Diagnoses Decreased urine stream Procedures CONSULT TO UROLOGY OFFICE/OUTPATIENT [facility] MDM 60-74 MINUTES Idalia Lewis, DAIRY INSPECTOR.MILLER HEAD ASSISTANT WET PROCESS [address] [place] [address] Referral ID Status Reason Start Date Expiration Date V isits Requested Visits Authorized [id number] Closed PCP Requested Referral 03/19/2022 03/19/2023 1 [...] ABD & PELVIS W/O CONTRAST Mary Polanco, DAIRY INSPECTOR.MILLER HEAD ASSISTANT WET PROCESS [address] [place] [address] [place] [address] Referral ID Status Reason Start Date Expiration Date V isits Requested Visits Authorized [id number] Closed Auto-Generate d Referral 05/07/2022 06/06/2023 1 1 Reason Comments Patient Update Mother concerned as pt does not want to do any ADL's, has questions about trying to get guardianship Reason Onset Date Comments Refill Request 03/24/2023 Reason Onset Date Comments Refill Request 05/22/2023 Reason Comments Acute Visit cold and cough Reason Comments Refill Request Please try to send R X today, patient still not feeling better Reason Comments patient update/requesting ATB Reason Onset Date Comments Refill Request 07/07/2023 Reason Comments Acute Visit cough and congestion Reason Comments New Cardiac Patient Reason Comments New Patient Reason Comments Discussion Reason Comments requesting help for pt Reason Comments cough and congestion continued Reason Comments requesting medication Reason Onset Date Comments Refill Request 08/25/2023 Reason Comments urinary symptoms mole on hip Reason Comments skin issue Open wound on R butt ock x2 days - painful to the touch Reason Comments Future Appointment Reason Comments Chest Congestion cough, fever and sor e throat x 3 days Reason Comments FYI-No Action Needed Reason Comments Bronchitis Reason Comments Refill Request Reason Onset Date Comments Cough 11/06/2023 Reason Comments Cough With congestion, fev er x 2 weeks Reason Onset Date Comments Refill Request 11/04/2023 Reason Onset Date Comments Refill Request 11/25/2023 Reason Onset Date Comments Refill Request 12/10/2023 Reason Comments Acute Visit fell Reason Comments Results Lumbar Xray Reason Comments Patient fall Reason Onset Date Comments Population Health Navigation Outreach 01/11/2024 [facility], [facility], [facility], [facility], [facility] Reason Comments continued cough Reason Comments Acute Visit bronchitis Reason Onset Date Comments Refill Request 01/21/2024 Reason Comments Results Chest Xray Reason Comments Results Knee Xray Reason Onset Date Comments Vaginal Bleeding 02/18/2024 Severe Reason Comments URI X 2-3 months Reason Comments Follow Up Reason Comments [facility] Reason Onset Date Comments Refill Request 06/21/2024 Reason Comments Medication Problem Reason Comments Non-[facility] Lab Results Reason Comments Referral Request Reason Comments referral issue Pain Management Dr. Duque Reason Onset Date Comments Medication Problem 08/20/2024 out of psych and seizure meds Reason Onset Date Comments Refill Request 08/20/2024 Reason Comments Pain Left sided knee, hip and ankle pain post fall due to seizure Reason Onset Date Comments Refill Request 10/17/2024 Reason Comments Internal Referrals/resources Reason Comments Physical Reason Comments Problem Visit Patient reported int ermittent vaginal bleeding. Care Teams (unrecognized sec tion and content) Director Financial Systems Relationship Specialty Start Date End Date Daniel Tan MD [address] [place] [address] PCP - General Family Practice 04/23/17 Director Financial Systems Relationship Specialty Start Date End Date Daniel Tan MD [address] [place] [address] PCP - General Family Practice 04/23/17 Director Financial Systems Relationship Specialty Start Date End Date Daniel Tan MD [address] [place] [address] PCP - General Family Practice 04/23/17 Director Financial Systems Relationship Specialty Start Date End Date Daniel Tan MD [address] [place] [address] PCP - General Family Practice 04/23/17 Director Financial Systems Relationship Specialty Start Date End Date Daniel Tan MD [address] [place] [address] PCP - General Family Practice 04/23/17 Director Financial Systems Relationship Specialty Start Date End Date Daniel Tan MD [address] [place] [address] PCP - General Family Medicine 04/23/17 Director Financial Systems Relationship Specialty Start Date End Date Daniel Tan MD [address] [place] [address] PCP - General Family Medicine 04/23/17 Director Financial Systems Relationship Specialty Start Date End Date Daniel Tan MD [address] [place] [address] PCP - General Family Medicine 04/23/17 Director Financial Systems Relationship Specialty Start Date End Date Daniel Tan MD [address] [place] [address] PCP - General Family Medicine 04/23/17 Director Financial Systems Relationship Specialty Start Date End Date Daniel Tan MD [address] [place] [address] PCP - General Family Medicine 04/23/17 Director Financial Systems Relationship Specialty Start Date End Date Daniel Tan MD [address] [place] [address] PCP - General Family Medicine 04/23/17 Director Financial Systems Relationship Specialty Start Date End Date Daniel Tan MD [address] [place] [address] PCP - General Family Medicine 04/23/17 Director Financial Systems Relationship Specialty Start Date End Date Daniel Tan MD [address] [place] [address] PCP - General Family Medicine 04/23/17 Director Financial Systems Relationship Specialty Start Date End Date Dainel Tan MD [address] [place] [address] PCP - General Family Medicine 04/23/17 Director Financial Systems Relationship Specialty Start Date End Date Daniel Tan MD [address] [place] [address] PCP - General Family Medicine 04/23/17 Team Status: Active Member Role Status Dates Dr. Daniel Tan MD Family Provider Active Dr. Daniel Tan MD Primary Care Provider Active Team Status: Inactive Member Role Status Dates Dr. Daniel Tan MD Primary Care Provider Active Dr. Cesar Mustafa MD Attending Provider, Emergency Provider Active Team Status: Inactive Member Role Status Dates Dr. Daniel Tan MD Primary Care Provider Active Dr. Harry Arreola DO Emergency Provider Active Director Financial Systems Relationship Specialty Start Date End Date Daniel Tan MD [address] [place] [address] PCP - General Family Medicine 04/23/17 Director Financial Systems Relationship Specialty Start Date End Date Daniel Tan MD [address] [place] [address] PCP - General Family Medicine 04/23/17 Director Financial Systems Relationship Specialty Start Date End Date Daniel Tan MD [address] [place] [address] PCP - General Family Medicine 04/23/17 Director Financial Systems Relationship Specialty Start Date End Date Daniel Tan MD [address] [place] [address] PCP - General Family Medicine 04/23/17 Team Status: Inactive Member Role Status Dates Dr. Daniel Tan MD Primary Care Provider Active Dr. Harry Arreola DO Attending Provider, Emergency P rovider Active Director Financial Systems Relationship Specialty Start Date End Date Daniel Tan MD [address] [place] [address] PCP - General Family Medicine 04/23/17 Director Financial Systems Relationship Specialty Start Date End Date Daniel Tan MD [address] [place] [address] PCP - General Family Medicine 04/23/17 Director Financial Systems Relationship Specialty Start Date End Date Daniel Tan MD [address] [place] [address] PCP - General Family Medicine 04/23/17 Director Financial Systems Relationship Specialty Start Date End Date Daniel Tan MD [address] [place] [address] PCP - General Family Medicine 04/23/17 Director Financial Systems Relationship Specialty Start Date End Date Daniel Tan MD [address] [facility] [place] [address] PCP - General Family Medicine 04/23/17 Director Financial Systems Relationship Specialty Start Date End Date Daniel Tan MD [address] [place] [address] PCP - General Family Medicine 04/23/17 Director Financial Systems Relationship Specialty Start Date End Date Daniel Tan MD [address] [place] [address] PCP - General Family Medicine 04/23/17 Director Financial Systems Relationship Specialty Start Date End Date Daniel Tan MD [address] [place] [address] PCP - General Family Medicine 04/23/17 Director Financial Systems Relationship Specialty Start Date End Date Daniel Tan MD [address] [place] [address] PCP - General Family Medicine 04/23/17 Director Financial Systems Relationship Specialty Start Date End Date Daniel Tan MD [address] [place] [address] PCP - General Family Medicine 04/23/17 Team Status: Inactive Member Role Status Dates Dr. Daniel Tan MD Primary Care Provider, Referr ing Provider Active Dr. Fide Santos MD Attending Provider Active Team Status: Inactive Member Role Status Dates Dr. Daniel Tan MD Primary Care Provider, Referr ing Provider Active Dr. Gerber Camarillo MD Attending Provider Active Team Status: Active Member Role Status Dates Dr. Daniel Tan MD Primary Care Provider Active Dr. Gerber Camarillo MD Attending Provider , Referring Provider, Other Provider Active Team Status: Active Member Role Status Dates Dr. Daniel Tan MD Primary Care Provider Active Dr. Gerber Camarillo MD Attending Provider, Referring Pr ovider Active Team Status: Inactive Member Role Status Dates Dr. Daniel Tan MD Primary Care Provider Active Dr. Gerber Camarillo MD Attending Provider, Referring Pr ovider Active Director Financial Systems Relationship Specialty Start Date End Date Daniel Tan MD [address] [place] [address] PCP - General Family Medicine 04/23/17 Team Status: Inactive Member Role Status Dates Dr. Daniel Tan MD Primary Care Provider Active Dr. Justine Trinidad MD Emergency Provider Active Team Status: Inactive Member Role Status Dates Dr. Daniel Tan MD Primary Care Provider Active Dr. Lamberto Burris MD Attending Provider, Referring Pro vider Active Team Status: Inactive Member Role Status Dates Dr. Daniel Tan MD Primary Care Provider Active Dr. Justine Trinidad MD Attending Provider, Emergency Provider Active Director Financial Systems Relationship Specialty Start Date End Date Daniel Tan MD [address] [place] [address] PCP - General Family Medicine 04/23/17 Director Financial Systems Relationship Specialty Start Date End Date Daniel Tan MD [address] [place] [address] PCP - General Family Medicine 04/23/17 Team Status: Inactive Member Role Status Dates Dr. Daniel Tan MD Primary Care Provider Active Dr. Kevin Montero MD Emergency Provider Active Director Financial Systems Relationship Specialty Start Date End Date Daniel Tan MD [address] [place] [address] PCP - General Family Medicine 04/23/17 Director Financial Systems Relationship Specialty Start Date End Date Daniel Tan MD [address] [place] [address] PCP - General Family Medicine 04/23/17 Director Financial Systems Relationship Specialty Start Date End Date Daniel Tan MD [address] [place] [address] PCP - General Family Medicine 04/23/17 Director Financial Systems Relationship Specialty Start Date End Date Daniel Tan MD [address] [place] [address] PCP - General Family Medicine 04/23/17 Director Financial Systems Relationship Specialty Start Date End Date Daniel Tan MD [address] [place] [address] PCP - General Family Medicine 04/23/17 Director Financial Systems Relationship Specialty Start Date End Date Daniel Tan MD [address] [place] [address] PCP - General Family Medicine 04/23/17 Director Financial Systems Relationship Specialty Start Date End Date Daniel Tan MD [address] [place] [address] PCP - General Family Medicine 04/23/17 Team Status: Inactive Member Role Status Dates Dr. Daniel Tan MD Primary Care Provider Active Dr. Kevin Montero MD Attending Provider, Emergency Provi lloyd Active Director Financial Systems Relationship Specialty Start Date End Date Daniel Tan MD [address] [place] [address] PCP - General Family Medicine 04/23/17 Director Financial Systems Relationship Specialty Start Date End Date Daniel Tan MD [address] [place] [address] PCP - General Family Medicine 04/23/17 Director Financial Systems Relationship Specialty Start Date End Date Dnaiel Tan MD [address] [place] [address] PCP - General Family Medicine 04/23/17 Director Financial Systems Relationship Specialty Start Date End Date Daniel Tan MD [address] [place] [address] PCP - General Family Medicine 04/23/17 Director Financial Systems Relationship Specialty Start Date End Date aDniel Tan MD [address] [place] [address] PCP - General Family Medicine 04/23/17 Director Financial Systems Relationship Specialty Start Date End Date Daniel Tan MD [address] [place] [address] PCP - General Family Medicine 04/23/17 Director Financial Systems Relationship Specialty Start Date End Date Daniel Tan MD [address] [place] [address] PCP - General Family Medicine 04/23/17 Director Financial Systems Relationship Specialty Start Date End Date Daniel Tan MD [address] [place] [address] PCP - General Family Medicine 04/23/17 Director Financial Systems Relationship Specialty Start Date End Date Daniel Tan MD [address] [place] [address] PCP - General Family Medicine 04/23/17 Director Financial Systems Relationship Specialty Start Date End Date Daniel Tan MD [address] [place] [address] PCP - General Family Medicine 04/23/17 Director Financial Systems Relationship Specialty Start Date End Date Daniel Tan MD [address] [place] [address] PCP - General Family Medicine 04/23/17 Director Financial Systems Relationship Specialty Start Date End Date Daniel Tan MD [address] [place] [address] PCP - General Family Medicine 04/23/17 Director Financial Systems Relationship Specialty Start Date End Date Daniel Tna MD [address] [place] [address] PCP - General Family Medicine 04/23/17 Director Financial Systems Relationship Specialty Start Date End Date Daniel Tan MD [address] [place] [address] PCP - General Family Medicine 04/23/17 Director Financial Systems Relationship Specialty Start Date End Date Daniel Tan MD [address] [place] [address] PCP - General Family Medicine 04/23/17 Director Financial Systems Relationship Specialty Start Date End Date Daniel Tan MD [address] [place] [address] PCP - General Family Medicine 04/23/17 Director Financial Systems Relationship Specialty Start Date End Date Daniel Tan MD [address] [place] [address] PCP - General Family Medicine 04/23/17 Director Financial Systems Relationship Specialty Start Date End Date Daniel Tan MD [address] [place] [address] PCP - General Family Medicine 04/23/17 Director Financial Systems Relationship Specialty Start Date End Date Daniel Tan MD [address] [place] [address] PCP - General Family Medicine 04/23/17 Idalia Lewis APRN.MILLER HEAD ASSISTANT WET PROCESS [address] [place] [address] Customer Loyalty Representative Family Medicine 03/27/24 Director Financial Systems Relationship Specialty Start Date End Date Daniel Tan MD [address] [place] [address] PCP - General Family Medicine 04/23/17 Idalia Lewis APRN.MILLER HEAD ASSISTANT WET PROCESS [address] [place] [address] Customer Loyalty Representative Family Medicine 03/27/24 Chaim Garcia APRN.MILLER HEAD ASSISTANT WET PROCESS [address] [place] [address] Customer Loyalty Representative Family Medicine 04/05/24 Director Financial Systems Relationship Specialty Start Date End Date Daniel Tan MD [address] [place] [address] PCP - General Family Medicine 04/23/17 Idalia Lewis APRN.MILLER HEAD ASSISTANT WET PROCESS [address] [place] [address] Customer Loyalty Representative Family Medicine 03/27/24 Chaim Garcia APRN.MILLER HEAD ASSISTANT WET PROCESS [address] [place] [address] [facility] 04/05/24 Director Financial Systems Relationship Specialty Start Date End Date Daniel Tan MD [address] [place], [place] [address] PCP - General Family Medicine 04/23/17 Idalia Lewis APRN.MILLER HEAD ASSISTANT WET PROCESS [address] [place], [place] [address] [facility] 03/27/24 Chaim Garcia APRN.MILLER HEAD ASSISTANT WET PROCESS [address] [place], [place] [id number] [facility] 04/05/24 Team Status: Active Member Role Status Dates Dr. Daniel Tan MD Primary Care Provider Active Team Status: Inactive Member Role Status Dates Dr. Daniel Tan MD Primary Care Provider Active Start: June 08, 2024 End: June 09, 2024 Dr. Al Argueta DO Attending Provider Active Start: June 08, 2024 End: June 09, 2024 Dr. Al Argueta DO Emergency Provider Active Start: June 08, 2024 End: June 09, 2024 Team Status: Inactive Member Role Status Dates Dr. Daniel Tan MD Primary Care Provider Active Start: July 25, 2024 End: July 25, 2024 GREGG JENKINS Attending Provider Active Star t: July 25, 2024 End: July 25, 2024 GREGG JENKINS Referring Provider Active Star t: July 25, 2024 End: July 25, 2024 Director Financial Systems Relationship Specialty Start Date End Date Daniel Tan MD [address] [place], [place] [address] PCP - General Family Medicine 04/23/17 Idalia Lewis APRN.MILLER HEAD ASSISTANT WET PROCESS [address] [place] [address] [facility] 03/27/24 Chaim Garcia APRN.MILLER HEAD ASSISTANT WET PROCESS [address] [place] [address] Customer Loyalty Representative Family Medicine 04/05/24 Director Financial Systems Relationship Specialty Start Date End Date Daniel Tan MD [address] [place] [address] PCP - General Family Medicine 04/23/17 Idalia Lewis APRN.MILLER HEAD ASSISTANT WET PROCESS [address] [place] [address] Customer Loyalty Representative Family Medicine 03/27/24 Chaim Garcia APRN.MILLER HEAD ASSISTANT WET PROCESS [address] [place] [address] Customer Loyalty Representative Family Medicine 04/05/24 Director Financial Systems Relationship Specialty Start Date End Date Daniel Tan MD [address] [place] [address] PCP - General Family Medicine 04/23/17 Idalia Lewis APRN.MILLER HEAD ASSISTANT WET PROCESS [address] [place] [address] Customer Loyalty Representative Family Medicine 03/27/24 Chaim Garcia APRN.MILLER HEAD ASSISTANT WET PROCESS [address] [place] [address] Customer Loyalty Representative Family Medicine 04/05/24 Director Financial Systems Relationship Specialty Start Date End Date Daniel Tan MD [address] [place] [address] PCP - General Family Medicine 04/23/17 Idalia Lewis APRN.MILLER HEAD ASSISTANT WET PROCESS [address] [place] [address] Customer Loyalty Representative Family Medicine 03/27/24 Chaim Garcia APRN.MILLER HEAD ASSISTANT WET PROCESS [address] [place] [address] Customer Loyalty Representative Family Medicine 04/05/24 Director Financial Systems Relationship Specialty Start Date End Date Daniel Tan MD [address] [facility] [place] [address] PCP - General Family Medicine 04/23/17 Idalia Lewis APRN.MILLER HEAD ASSISTANT WET PROCESS [address] [facility] [place] [address] Customer Loyalty Representative Family Medicine 03/27/24 Chaim Garcia APRN.MILLER HEAD ASSISTANT WET PROCESS [address] [facility] [place] [address] Customer Loyalty Representative Family Medicine 04/05/24 Director Financial Systems Relationship Specialty Start Date End Date Daniel Tan MD [address] [facility] [place] [address] PCP - General Family Medicine 04/23/17 Idalia Lewis APRN.MILLER HEAD ASSISTANT WET PROCESS [address] [facility] [place] [address] Customer Loyalty Representative Family Medicine 03/27/24 Chaim Garcia APRN.MILLER HEAD ASSISTANT WET PROCESS [address] [facility] [place] [address] Customer Loyalty Representative Family Medicine 04/05/24 Director Financial Systems Relationship Specialty Start Date End Date Daniel Tan MD [address] [facility] [place] [address] PCP - General Family Medicine 04/23/17 Chaim Garcia APRN.MILLER HEAD ASSISTANT WET PROCESS [address] [facility] [place] [address] Customer Loyalty Representative [facility] 04/05/24 Director Financial Systems Relationship Specialty Start Date End Date Daniel Tan MD [address] [place] [address] PCP - General Family Medicine 04/23/17 Chaim Garcia APRN.MILLER HEAD ASSISTANT WET PROCESS [address] [place] [address] Customer Loyalty Representative [facility] 04/05/24 Director Financial Systems Relationship Specialty Start Date End Date Daniel Tan MD [address] [place] [address] PCP - General Family Medicine 04/23/17 Chaim Garcia APRN.MILLER HEAD ASSISTANT WET PROCESS [address] [place] [address] [facility] 04/05/24 Director Financial Systems Relationship Specialty Start Date End Date Daniel Tan MD [address] [place] [address] PCP - General Family Medicine 04/23/17 Chaim Garcia APRN.MILLER HEAD ASSISTANT WET PROCESS [address] [place] [address] [facility] 04/05/24 Director Financial Systems Relationship Specialty Start Date End Date Daniel Tan MD [address] [place] [address] PCP - General Family Medicine 04/23/17 Chaim Garcia APRN.MILLER HEAD ASSISTANT WET PROCESS [address] [place] [address] [facility] 04/05/24 Director Financial Systems Relationship Specialty Start Date End Date Daniel Tan MD [address] [place] [address] PCP - General Family Medicine 04/23/17 Idalia Lewis APRN.MILLER HEAD ASSISTANT WET PROCESS [address] [place] [address] [facility] 03/27/24 08/31/24 Chaim Garcia APRN.MILLER HEAD ASSISTANT WET PROCESS [address] [place] [address] [facility] 04/05/24 Director Financial Systems Relationship Specialty Start Date End Date Daniel Tan MD [address] [place] [address] PCP - General Family Medicine 04/23/17 Chaim Garcia DAIRY INSPECTOR.MILLER HEAD ASSISTANT WET PROCESS [address] [place] [address] [facility] 04/05/24 Director Financial Systems Relationship Specialty Start Date End Date Daniel Tan MD [address] [place] [address] PCP - General Family Medicine 04/23/17 Chaim Garcia DAIRY INSPECTOR.MILLER HEAD ASSISTANT WET PROCESS [address] [place] [address] [facility] 04/05/24 Director Financial Systems Relationship Specialty Start Date End Date Daniel Tan MD [address] [place] [address] PCP - General Family Medicine 04/23/17 Chaim Garcia APRN.MILLER HEAD ASSISTANT WET PROCESS [address] [place], [place] [address] [facility] Loyalty [facility] Health 04/05/24 Director Financial Systems Relationship Specialty Start Date End Date Daniel Tan MD [address] [place], [place] [id number] PCP - General [facility] 04/23/17 Chaim Garcia APRN.MILLER HEAD ASSISTANT WET PROCESS [address], [place] [id number] [facility] 04/05/24 Director Financial Systems Relationship Specialty Start Date End Date Daniel Tan MD [address], [place] [id number] PCP - [facility] 04/23/17 Chaim Garcia APRN.MILLER HEAD ASSISTANT WET PROCESS [address], [place] [id number] Customer L[facility]ty [facility] 04/05/24 Goals (unrecognized section and content) Goals may be documented in a n alternate sectionGoals may be documented in an alternate sectionGoals may be documented in an alternate sectionGoals may be documented in an alternate sectionGoals may be documented in an alternate sectionGoals may be documented in an alternate sectionGoals may be documented in an alternate sectionGoals may be documented in an alternate sectionGoals may be documented in an alternate sectionGoals may be documented in an alternate sectionGoals may be documented in an alternate sectionGoals may be documented in an alternate section No data available for this section No data available for this sectionGoals may be documented in an alternate section FOR RECORDS PERTAINING TO PATIENTS WHO ARE [...] BE BASED ON THE PRIMARY CLINICAL RECORDS. [employer] [facility] provides no warranty or guarantee of the accuracy or completeness of information in this document.
[2024-11-29 05:52] VITALS: PULSE 80; RESP 20
--- NOTE | 2024-11-29 06:30 | RAD_ITS ---
PROCEDURE: CHEST PA AND LATERAL 11/29/2024 REASON FOR EXAM: COUGH TECHNIQUE: CHEST PA AND LATERAL COMPARISON: August 31, 2023 FINDINGS: Heart size and mediastinal configuration are within normal limits. There is no focal infiltrate or consolidation. There is no pneumothorax or effusion. There is no acute bony abnormality. There is no visible atherosclerosis. Kyphosis appears unchanged. RAD/Chest PA and Lateral IMPRESSION: No acute process is identified in the chest. Reading Location: [facility]
[2024-11-29] MEDS: Albuterol Sulfate 8 gm Inhaler (60 puffs) 2 PUFF INHALATION (07:31)
[2024-11-29 07:39] VITALS: BP 117/62; PULSE 69; RESP 17; TEMP 36.9; O2SAT 100
== END 2024-11-29 07:40 | disposition home or self-care (01) ==
PROVIDERS: Emergency Provider Emergency Medicine; PCP Family Medicine; Visit Provider Emergency Medicine
DX: J06.9 Acute upper respiratory infection, unspecified (principal); F20.9 Schizophrenia, unspecified; G40.309 Generalized idiopathic epilepsy and epileptic syndromes, not intractable, without status epilepticus; E66.01 Morbid (severe) obesity due to excess calories; Z68.42 Body mass index [BMI] 45.0-49.9, adult; Z79.899 Other long term (current) drug therapy
CPT/HCPCS: 71046; 87631; 94640; 99283